=== PATIENT | female | born 1955 | race Hispanic/Latino ===

== ENCOUNTER 2024-08-22 13:52 | Inpatient (IN) | payer OTHER ==
--- OUTSIDE RECORDS SUMMARY | 2024-08-22 21:09 | XMS REPORT | Continuity of Care Document ---
Author Name Unknown Address [address] [facility] [place] [address] [facility] [place] Address [address] [facility] [place] [address] Care Team Providers Care Teaching Music Lessons Name Role Phone JOSE MARIA WADDELL Primary Care Physician UnavailDR JOSE MARIA Mayes Attending Clinician Unavailable [id number] Attending Clinician Unavailable [id number] Attending Clinician Unavailable John Bruno MD Attending Clinician [phone] Sharyn Gamble MD Attending C linician SHARYN GAMBLE Attending Clin ician Unavailable SPRING WAITE Attending Clinician Unavailable Billy Desai MD Attending Clinician + [phone] Esteban Delarosa MD Attending Clinician [phone] Spring Waite MD Attending Clinician [phone] Morena Wallis RN Attending Clinician Unavailable Brian Bowden MD Attending Clinician [phone] UNKNOWN, ATTENDING Attending Clinician UnavailGaston Wray MD Attending Clinician [phone] DR JOSE MARIA WADDELL Admitting Clinician Unavailable John Bruno MD Admitting Clinician JOHN BRUNO Admitting Clinician BILLY Wilson Admitting Clinician Billy Blas MD Admitting Clinician [phone] Brian Bowden MD Admitting Clinician [phone] Payers Payer Name Policy Type Policy Number Effective Date Expirati on Date Source MEDICARE PART A [facility] [id number] MEDICARE PART A Medicare [id number] 2018 00:00:00 Problems Condition Name Condition Details Condition Category Status Onset Date Resolution Date Last Treatment Date Treating Clinician Comments Source Severe malnutriti on (CMS/HCC) Severe malnutriti on (CMS/HCC) Disease Active 4- 00:00: 00 [facility] DAK[place] (acute kidney injury) [place] (acute kidney injury) Disease Active 3-31 00:00: 00 [facility] Chronic systolic heart failure (CMS/HCC) Chronic systolic heart failure (CMS/HCC) Disease Active 3-27 00:00: 00 [facility] Atypical atrial flutter (CMS/HCC) Atypical atrial flutter (CMS/HCC) Disease Active 3-25 00:00: 00 [facility] AVM (arteriove nous malformati on) AVM (arteriove nous malformati on) Disease Active 3-24 00:00: 00 [facility] Melena Melena Disease Active 3-22 00:00: 00 [facility] Nonrheumat ic mitral valve regurgitat ion Nonrheumat ic mitral valve regurgitat ion Disease Active 3-20 00:00: 00 [facility] Cardiac arrest Cardiac arrest Disease Active 3-18 00:00: 00 [facility] Shock (CMS/HCC) Shock (CMS/HCC) Disease Active 3-18 00:00: 00 [facility] Compressio n fracture of T10 vertebra Compressio n fracture of T10 vertebra Disease Active 3-12 00:00: 00 [facility] 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 Disease Active 07-31 00:00: 00 Viktoriya Navarrete Acute non-ST elevation myocardial infarction (NSTEMI) (CMS/HCC) Acute non-ST elevation myocardial infarction (NSTEMI) (CMS/HCC) Disease Active 07-31 00:00: 00 Viktoriya Navarrete Tachy-filemon y syndrome (CMS/HCC) Tachy-filemon y syndrome (CMS/HCC) Disease Active 07-31 00:00: 00 Viktoriya Navarrete Tobacco use disorder Tobacco use disorder Disease Active 07-31 00:00: 00 Viktoriya Navarrete Peripheral vascular disease Peripheral vascular disease Disease Active 07-31 00:00: 00 Viktoriya Navarrete Normocytic anemia Normocytic anemia Disease Active 07-31 00:00: 00 Viktoriya Navarrete Prediabete s Prediabete s Disease Active 07-28 00:00: 00 Viktoriya Navarrete New onset of congestive heart failure (CMS/HCC) New onset of congestive heart failure (CMS/HCC) Disease Active 07-28 00:00: 00 Viktoriya Navarrete Cellulitis Cellulitis Disease Active 07-28 00:00: 00 Viktoriya Navarrete Atrial fibrillati on with RVR (CMS/HCC) Atrial fibrillati on with RVR (CMS/HCC) Disease Active 07-28 00:00: 00 Viktoriya Navarrete Diabetes mellitus Diabetes mellitus Disease Active 07-28 00:00: 00 Viktoriya Navarrete Elevated troponin Elevated troponin Disease Active 07-28 00:00: 00 Viktoriya Navarrete Hypertensi on Hypertensi on Disease Active 07-28 00:00: 00 Viktoriya Navarrete Tobacco use Tobacco use Disease Active 07-28 00:00: 00 Viktoriya Navarrete Coronary artery disease Coronary artery disease Disease Active 07-28 00:00: 00 Viktoriya Navarrete Hyponatrem ia Hyponatrem ia Disease Active 07-28 00:00: 00 [facility] Hyperglyce kasey Hyperglyce kasey Disease Active 3- 00:00: 00 Viktoriya [facility] Pulmonary edema cardiac cause (CMS/HCC) Pulmonary edema cardiac cause (CMS/HCC) Disease Active 07-28 00:00: 00 [facility]ya [facility] Perianal abscess Perianal abscess Disease Active 12-20 00:00: 00 Overview: Added automatic ally from request for surgery [id number] [facility] Acute hypoxic respirator y failure Acute hypoxic respirator y failure Disease Resolve d 07-28 00:00: 00 2024-08-02 00:00:00 2024-08-02 15:25:32 Viktoriya Navarrete Allergies, Adverse Reactions, Alerts Allergy Name Allergy Type Status Severity Reaction(s) Onset Date Inactive Date Treating Clinician Comments Source No Known Environm ental Allergie s MA Active UNKNOWN [facility] No Known Drug Allergie s MA Active UNKNOWN [facility] No Known Food Allergie s MA Active UNKNOWN [facility] NO KNOWN ALLERGIE S Drug Class Active [facility] Social History Social Habit Start Date Stop Date Quantity Comments Source History of tobacco use Cigarette Smoker Bharathi Navarrete ASSERTION Not Viktoriya Navarrete Gender identity Markttuu vick Osvaldo Navarrete Sexual orientation M emoriselena [facility]do Navarrete Sex Assigned At [facility] Exposure to SARS-CoV-2 (event) Not sure [facility] Alcoholic beverage intake 2024-08-12 00:00:00 2024-08-12 00:00:00 .86 /d Bharathi Navarrete Tobacco use and exposure 2024-07-31 00:00:00 2024-07-31 00:00:00 User of smokeless tobacco Bharathi Navarrete Tobacco Comment 2024-07-31 00:00:00 2024-07-31 00:00:00 PATIENT VERBALIZED "WELL NOW THAT I AM IN THE HOSPITAL, I CAN'T REALLY SMOKE Bharathi Navarrete Alcohol Comment 2024-07-31 00:00:00 2024-07-31 00:00:00 DRIKS EVERYOTHER WEEKEND Bharathi Navarrete History of Social function 2024-07-31 00:00:00 2024-07-31 00:00:00 [facility] Smoking Status Start Date Stop Date Source Tobacco smoking consumption unknown [facility] Ex-smoker 2024-07-31 00:00:00 2024-07-31 00:00:00 [facility] Social History 2017-07-27 13:53:55 Jennifer Silverman Medications Ordered Medication Name Filled Medication Name Start Date Stop Date Current Medication? Ordering Clinician Indication Dosage Frequency Signature (SIG) Comments Components Source insulin lispro (HumaLOG, Admelog) injection 3-12 Units [id number] 4-02 13:33: 10 Yes 3U [id number] 3D 3-12 Units, Subcutaneo us, 3 times daily PRN, high blood sugar, with meals, Starting on Tue08/22/24 at 1333, For BG < 70, follow hypoglycem ia protocol and notify ordering provider. If patient can eat or drink, give oral carbohydra te as ordered per hypoglycem ia protocol. If patient NPO, give dextrose 50 % IV as ordered per hypoglycem ia protocol. If NPO and no IV access, give glucagon IM as ordered per hypoglycem ia protocol. Check BG every 15 minutes and repeat treatment if continued BG < 80., Correction Insulin Dosing: (DO NOT CHANGE DEFAULT SELECTION/ VALUES): Medium, BG < 70 instructio ns: Follow Hypoglycem ia Orders, BG 70-149 instructio ns: No Dose Needed, BG 150-199: 3, BG 200-249: 6, BG 250-299: 9, BG >/= 300: 12, BG > 300 instructio ns: Contact Provider Viktoriya Riley [facility] glucagon injection 1 mg glucagon injection 1 mg 08-22 13:32: 24 Yes 1mg 1 mg, Intramuscu lar, As needed, For BG < 70 mg/dL if no IV access and patient is either Unconsciou s, unable to swallow or npo, Starting on Tue08/22/24 at 1332, For BG < 70 mg/dL if no IV access and patient is either Unconsciou s, unable to swallow or npo and notify MD. Viktoriya Riley [facility] dextrose 50 % solution 25 g dextrose 50 % solution 25 g 08-22 13:32: 24 Yes 25g 25 g, Intravenou s, As needed, other, if Blood Glucose </= 50 mg/dL, Starting on Tue08/22/24 at 1332, If BG </=50 mg/dL, give 50 mL of D50W IV push STAT and notify MD. Viktoriya Navarrete dextrose 50 % solution 12.5 g dextrose 50 % solution 12.5 g 08-22 13:32: 24 Yes 12.5g 12.5 g, Intravenou s, As needed, low blood sugar, if Blood Glucose 51- 69 mg/dL, Starting on Tue08/22/24 at 1332, For BG 51-69 mg/dL and patient UNCONSCIOU S OR UNABLE TO SWALLOW OR NPO: Give 25 mL of D50W IV push and notify MD. Viktoriya Navarrete apixaban (Eliquis) 5 MG tablet apixaban (Eliquis) 5 MG tablet 08-22 00:00: 00 09-21 23:59 :00 No 5mg Q.5D Take 1 tablet by mouth in the morning and 1 tablet before bedtime. Viktoriya Navarrete atorvastati n (Lipitor) 40 MG tablet atorvastati n (Lipitor) 40 MG tablet 08-22 00:00: 00 09-21 23:59 :00 No 40mg QD Take 1 tablet by mouth 1 time each day. Viktoriya Navarrete insulin lispro (HumaLOG, Admelog) 100 unit/ml injection insulin lispro (HumaLOG, Admelog) 100 unit/ml injection 08-22 00:00: 00 09-21 23:59 :00 No 3U [id number] 3D Inject 3-12 Units under the skin 3 times a day as needed for high blood sugar (with meals). See After Visit Summary for instructio ns on how to take your insulin. Viktoriya Navarrete sennosides (Senokot) 8.6 MG tablet sennosides (Senokot) 8.6 MG tablet 08-22 00:00: 00 09-21 23:59 :00 No 8.6mg Q.5D Take 1 tablet by mouth in the morning and 1 tablet in the evening. Viktoriya Navarrete ticagrelor (Brilinta) 90 MG tablet ticagrelor (Brilinta) 90 MG tablet 08-22 00:00: 00 09-21 23:59 :00 No 90mg Q.5D Take 1 tablet by mouth in the morning and 1 tablet before bedtime. Viktoriya Navarrete bisacodyl (Dulcolax) 10 MG suppository bisacodyl (Dulcolax) 10 MG suppository 08-22 00:00: 00 09-01 23:59 :00 No 10mg Q24H Insert 1 suppositor y into the rectum daily as needed for constipati on for up to 10 days. Viktoriya Navarrete polyethylen e glycol, PEG, 3350 (Miralax) 17 g packet polyethylen e glycol, PEG, 3350 (Miralax) 17 g packet 08-22 00:00: 00 08-25 23:59 :00 No 17g Q.5D Take 17 g by mouth in the morning and 17 g in the evening. Do all this for 3 days. Viktoriya Navarrete traMADol (Ultram) tablet 50 mg traMADol (Ultram) tablet 50 mg 08-21 15:39: 25 Yes 50mg 50 mg, Oral, Every 12 hours PRN, severe pain (7-10), moderate pain (4-6), Starting on Tue08/21/24 at 1539, Max of 300 mg daily for patients > 75 years of age. Viktoriya Navarrete polyethylen e glycol (PEG) 3350 (Miralax) packet 17 g polyethylen e glycol (PEG) 3350 (Miralax) packet 17 g 08-20 17:00: 00 Yes 17g Q.5D 17 g, Oral, 2 times daily, First dose (after last modificati on) on Tue08/20/24 at 1700, Dissolve 17 g in 120 to 240 mL (4 to 8 ounces) of beverage. Viktoriya Navarrete bisacodyl (Dulcolax) suppository 10 mg bisacodyl (Dulcolax) suppository 10 mg 08-20 15:51: 15 Yes 10mg Q24H 10 mg, Rectal, Daily PRN, constipati on, Starting on Tue08/20/24 at 1551 Viktoriya Navarrete ondansetron (Zofran) injection 2 mg ondansetron (Zofran) injection 2 mg 08-20 14:45: 00 08-20 14:52 :00 No 2mg 2 mg, Intravenou s, Once, On Tue08/20/24 at 1445, For 1 dose Viktoriya Navarrete lactated Ringer's bolus 250 mL lactated Ringer's bolus 250 mL 08-20 10:45: 00 08-20 12:48 :00 No 250mL 250 mL, Intravenou s, at 125 mL/hr, Administer over 2 Hours, Once, On Tue08/20/24 at 1045, For 1 dose Viktoriya [facility] perflutren lipid microsphere s (Definity) injection 3.4556 mg perflutren lipid microsphere s (Definity) injection 3.4556 mg 08-19 14:07: 26 08-19 14:07 :00 No 10uL/kg 3.4556 mg (10 mcL/kg ?53 kg), Intravenou s, Once in imaging, Starting on Tue08/19/24 at 1407, For 1 dose, Contrast - for use by imaging provider only. Prior to administra tion or further dilution, Definity product must be activated. First, bring vial to room temperatur e. Then, shake vial for 45 seconds using [employer] d Vialmix apparatus. Do not use if the 45 second activation cycle has not been completed. Following activation , the product will appear as a milky white suspension and may be used immediatel y. If not used within 5 minutes of activation , re-suspend by inverting and shaking the vial for 10 seconds. Unused product must be discarded within 12 hours after activation . To administer undiluted, draw up activated product into a 3 or 5 mL syringe. If ordered as a diluted syringe, draw up 8.7 mL of preservati ve free saline into a 10 mL syringe, then slowly withdraw 1.3 mL of activated Definity into same syringe. Gently shake by hand to evenly distribute . If ordered as a diluted infusion, draw up 1.3 mL of activated Definity, then add to a 50 mL preservati ve free saline bag. Gently squeeze IV bag to evenly distribute prior to administra tion. Viktoriya Riley [facility] amiodarone (Pacerone) tablet 200 mg amiodarone (Pacerone) tablet 200 mg 08-19 09:00: 00 08-22 14:52 :17 No 200mg QD 200 mg, Oral, Daily, First dose on Tue08/19/24 at 0900 Daisyjg ignacio [facility] potassium chloride CR (Klor-Con M20) ER tablet 20 mEq potassium chloride CR (Klor-Con M20) ER tablet 20 mEq 08-17 11:54: 51 08-21 15:38 :51 No 20meq 20 mEq, Oral, As needed, Abnormal Lab Result, For NON-ICU Patients Only, Starting on Tue08/17/24 at 1154, Evaluate Potassium and Phosphorou s level prior to replacemen t. Potassium replacemen t; phosphorou s > 2.4 mg/dL or phosphorou s level not available: For K = 3.5 - 3.9 mEq/L: Replace with KCL 20 mEq. Recheck Potassium with next scheduled lab. For K = 3.1 - 3.4 mEq/L: Replace with KCL 40 mEq.? Recheck Potassium 4 hours after replacemen t. Potassium and Phosphorou s Replacemen t: For K = 3.5 - 4.5 mEq/L AND Phosphorou s 2 - 2.4 mg/dL:? Replace with 2 packets of Potassium phosphate/ sodium phosphate oral powder x 1 dose. For K = 3.5 - 4.5 mEq/L AND Phosphorou s 1.6 - 1.9 mg/dL:? Replace with 2 packets of Potassium phosphate/ sodium phosphate oral powder Q4H x 2 doses. For K = 3.1 - 3.4 mEq/L AND Phosphorou s 2 - 2.4 mg/dL: Replace with KCL 20 mEq PO/NJ AND Potassium Phosphate 15 mMol IVPB over 4 hours. For K = 3.1 - 3.4 mEq/L AND Phosphorou s 1.6 - 1.9 mg/dL: Replace with Potassium Phosphate 30 mMol IVPB over 4 hours. Recheck Potassium and Phosphorou s levels 4 hours after replacemen t complete.N otify MD for K < 3.1 mEq/L or Phosphorou s < 1.6 mg/dL prior to replacemen t. *Use PO or NJ administra tion unless patient is first 12 hours post-op, active GI bleed, acute arrhythmia s, ischemic bowel or NPO. Do Not Crush the ER tablets. DO NOT replace if patient is on dialysis, temperatur e < 35 Celsius, or serum creatinine > 2.0 mg/dL or GFR < 45 mL/min. DO NOT CRUSH.? For patients able to take medication s orally or via feeding tube >/= 14 [place], may dissolve each 20 mEq tablet in 4 oz of water.? Allow about 2 minutes for the tablets to disintegra te.? Stir before giving to prepare slurry and administer .? Please exclude patient's with feeding tube less than 14 [place] (Dobhoff, J-tube, etc) and pediatric and patients. Do not crush or chew. Viktoriya Riley [facility] losartan (Cozaar) tablet 12.5 mg losartan (Cozaar) tablet 12.5 mg 08-17 10:15: 00 Yes 12.5mg QD 12.5 mg, Oral, Daily, First dose on Tue08/17/24 at 1015 Viktoriya Riley [facility] furosemide (Lasix) tablet 40 mg furosemide (Lasix) tablet 40 mg 08-16 17:00: 00 Yes 40mg 40 mg, Oral, 2 times daily (01/05), First dose on Tue08/16/24 at 1700, On hold since Tue08/20/2024 at 0915 until manually unheld Viktoriya Riley [facility] dapaglifloz in (Farxiga) tablet 10 mg dapaglifloz in (Farxiga) tablet 10 mg 08-16 11:15: 00 Yes [id number] 10mg QD 10 mg, Oral, Daily, First dose on Tue08/16/24 at 1115, Indication s: Heart Failure, On hold since Tue08/20/2024 at 1034 until manually unheld Viktoriya [facility] furosemide (Lasix) injection 40 mg furosemide (Lasix) injection 40 mg 08-16 11:15: 00 08-16 18:39 :00 No 40mg 40 mg, Intravenou s, Once, On Tue08/16/24 at 1115, For 1 dose, Give with transfusio n. Viktoriya Navarrete apixaban (Eliquis) tablet 5 mg apixaban (Eliquis) tablet 5 mg 08-16 11:00: 00 Yes 5mg Q.5D 5 mg, Oral, Every 12 hours scheduled, First dose on Tue08/16/24 at 1100 Viktoriya Navarrete pantoprazol e (ProtoNix) EC tablet 40 mg pantoprazol e (ProtoNix) EC tablet 40 mg 08-16 06:00: 00 Yes 40mg 40 mg, Oral, Daily before breakfast, First dose on Tue08/16/24 at 0600, Do not crush, chew, or split. Viktoriya Navarrete norepinephr ine (Levophed) 800 mcg in sodium chloride 0.9 % 50 mL (16 mcg/mL) infusion norepinephr ine (Levophed) 800 mcg in sodium chloride 0.9 % 50 mL (16 mcg/mL) infusion 08-15 08:25: 00 08-15 14:27 :08 No Intravenou s, Continuous PRN, Starting on Tue08/15/24 at 0825, Anesthesia Intraproce dure Viktoriya Navarrete heparin 50 units/mL in sodium chloride 0.45 % heparin 50 units/mL in sodium chloride 0.45 % 08-14 19:30: 00 08-16 10:59 :39 No 200U/h 200 Units/hr (4 mL/hr), Intravenou s, Continuous , Starting on Tue08/14/24 at 1930, Non weight-bas ed fixed dose heparin only. Not Intended to achieve therapeuti c PTT > 60. No Heparin Loading Dose. , On hold since Tue08/16/2024 at 0648 until manually unheld Viktoriya Navarrete sodium chloride 0.9 % bolus 100 mL sodium chloride 0.9 % bolus 100 mL 08-14 09:30: 00 08-14 10:32 :00 No 100mL 100 mL, Intravenou s, at 100 mL/hr, Administer over 1 Hours, Once, On Tue08/14/24 at 0930, For 1 dose Viktoriya Navarrete amiodarone (Nexterone) 900 mg in dextrose 5 % 500 mL (1.8 mg/mL) infusion amiodarone (Nexterone) 900 mg in dextrose 5 % 500 mL (1.8 mg/mL) infusion 08-14 09:15: 00 08-14 22:30 :07 No 1mg/min 1 mg/min (33.3333 mL/hr, rounded to 33.3 mL/hr), Intravenou s, Continuous , Starting on Tue08/14/24 at 0915, Use in-line filter with infusion Viktoriya Navarrete traZODone (Desyrel) tablet 50 mg traZODone (Desyrel) tablet 50 mg 08-13 21:15: 00 08-13 21:24 :00 No 50mg 50 mg, Oral, Once, On Tue08/13/24 at 2115, For 1 dose Viktoriya Navarrete octreotide (SandoSTATI N) injection 100 mcg octreotide (SandoSTATI N) injection 100 mcg 08-13 13:00: 00 08-16 11:06 :20 No 100ug [id number] 3D 100 mcg, Subcutaneo us, 3 times daily, First dose (after last modificati on) on Tue08/13/24 at 1300 Viktoriya Navarrete bumetanide (Bumex) 10 mg in sodium chloride 0.9 % 100 mL (0.1 mg/mL) infusion bumetanide (Bumex) 10 mg in sodium chloride 0.9 % 100 mL (0.1 mg/mL) infusion 08-13 09:30: 00 08-16 10:59 :39 No .25mg/h 0.25 mg/hr (2.5 mL/hr), Intravenou s, Continuous , Starting on Tue08/13/24 at 0930, On hold since Tue08/14/2024 at 0921 until manually unheld Viktoriya Navarrete furosemide (Lasix) injection 40 mg furosemide (Lasix) injection 40 mg 08-13 08:15: 08-13 08:37 :00 No 40mg 40 mg, Intravenou s, Once, On Tue08/13/24 at 0815, For 1 dose [facility] octreotide (SandoSTATI N) injection 50 mcg octreotide (SandoSTATI N) injection 50 mcg 08-12 17:30: 00 08-13 09:21 :41 No 50ug [id number] 3D 50 mcg, Subcutaneo us, 3 times daily, First dose on Tue08/12/24 at 1730 Memoria ignacio [facility] albumin human 25 % IV soln 25 g albumin human 25 % IV soln 25 g 08-12 13:15: 08-12 13:50 :00 No 25g 25 g, Intravenou s, at 200 mL/hr, Administer over 30 Minutes, Once, On Tue08/12/24 at 1315, For 1 dose [facility] ketamine injection 10 mg/mL (50 mg/5 mL) syringe 50 mg ketamine injection 10 mg/mL (50 mg/5 mL) syringe 50 mg 08-12 12:15: 08-12 12:41 :00 No 50mg 50 mg, Intravenou s, Administer over 2 Minutes, Once, On Tue08/12/24 at 1215, For 1 dose, Give IV doses slowly over 1-3 minutes (max 0.5 mg/kg/min) . Daisyoria ignacio [facility] fentaNYL (Sublimaze) injection 100 mcg fentaNYL (Sublimaze) injection 100 mcg 08-12 12:15: 08-12 12:40 :00 No 100ug 100 mcg, Intravenou s, Once, On Tue08/12/24 at 1215, For 1 dose Memoria ignacio [facility] midazolam (Versed) injection 7 mg midazolam (Versed) injection 7 mg 08-12 12:15: 08-12 12:40 :00 No 7mg 7 mg, Intravenou s, Once, On Tue08/12/24 at 1215, For 1 dose Memoria ignacio [facility] ketamine injection 10 mg/mL (50 mg/5 mL) 10 mg/mL syringe - Pyxis Override Pull ketamine injection 10 mg/mL (50 mg/5 mL) 10 mg/mL syringe - Pyxis Override Pull 08-12 10:31: 57 08-12 12:41 :00 No Starting on 08/12/24 at 1031, For 1 dose, Created by cabinet override Give IV doses slowly over 1-3 minutes (max 0.5 mg/kg/min) . Viktoriya Riley [facility] furosemide (Lasix) injection 20 mg furosemide (Lasix) injection 20 mg 08-12 09:30: 00 08-12 10:05 :00 No 20mg 20 mg, Intravenou s, Administer over 1 Minutes, Once, On 08/12/24 at 0930, For 1 dose Viktoriya pierre [facility] sodium bicarbonate 25 mEq in dextrose 5 % 1,000 mL infusion sodium bicarbonate 25 mEq in dextrose 5 % 1,000 mL infusion 08-11 11:30: 00 08-15 14:41 :16 No .1mL/h 0.1-40 mL/hr, Other, Continuous , Starting on 08/11/24 at 1130, Impella Device Non-hepari n Purge Solution. For use as alternativ e purge solution in patients with Impella device where heparin may be contraindi cated (heparin-i nduced thrombocyt openia, heparin allergy, coagulopat hy, bleeding). If purge flow rate is > 25 mL/hr, increase dextrose concentrat ion in purge solution. System will continue to adjust purge flow rate. If purge flow rate 5 - 25 mL/hr, therapeuti c range - no change. If purge flow rate < 5 mL/hr, contact physician for further instructio ns. Viktoriya pierre [facility] pantoprazol e (ProtoNix) injection 40 mg pantoprazol e (ProtoNix) injection 40 mg 08-11 09:45: 00 08-15 14:03 :27 No 40mg Q.5D 40 mg, Intravenou s, Every 12 hours scheduled, First dose on 08/11/24 at 0945, Until Discontinu ed Viktoriya Navarrete folic acid (Folvite) tablet 1 mg folic acid (Folvite) tablet 1 mg 08-11 09:00: 00 08-25 08:59 :00 No 1mg QD 1 mg, Oral, Daily, First dose on Tue08/11/24 at 0900, For 14 days Viktoriya Navarrete ferric gluconate (Ferrlecit) 250 mg in sodium chloride 0.9 % 100 mL IVPB ferric gluconate (Ferrlecit) 250 mg in sodium chloride 0.9 % 100 mL IVPB 08-11 09:00: 00 08-14 10:56 :00 No 250mg QD 250 mg, Intravenou s, at 66.7 mL/hr, Administer over 90 Minutes, Daily, First dose on Tue08/11/24 at 0900, For 4 doses, Not to exceed 2.1 mg/min (duration = 60 min) Viktoriya Navarrete fentaNYL (Sublimaze) injection 50 mcg fentaNYL (Sublimaze) injection 50 mcg 08-10 11:45: 00 08-10 11:00 :00 No 50ug 50 mcg, Intravenou s, Once, On Tue08/10/24 at 1145, For 1 dose Viktoriya Navarrete midazolam (Versed) injection 4 mg midazolam (Versed) injection 4 mg 08-10 11:45: 00 08-10 11:00 :00 No 4mg 4 mg, Intravenou s, Once, On Tue08/10/24 at 1145, For 1 dose Viktoriya Navarrete fentaNYL (PF) (Sublimaze) 100 MCG/2ML injection - Pyxis Override Pull fentaNYL (PF) (Sublimaze) 100 MCG/2ML injection - Pyxis Override Pull 08-10 09:56: 40 08-10 11:00 :00 No Starting on Tue08/10/24 at 0956, For 1 dose, Created by cabinet override Viktoriya Navarrete Boost Glucose Control liquid 237 mL Boost Glucose Control liquid 237 mL 08-09 15:15: 00 Yes 1{conta iner} 237 mL (1 Container) , Oral, 2 times daily with meals, First dose on Tue08/09/24 at 1515 Viktoriya Riley Epic phenol (Chlorasept ic) 1.4 % mouth/throa t spray 1 spray phenol (Chlorasept ic) 1.4 % mouth/throa t spray 1 spray 08-09 07:38: 19 Yes 1{spray } 1 spray, Mouth/Thro at, Every 2 hour PRN, sore throat, Starting on Tue08/09/24 at 0738, Instruct patient to spit out after 15 seconds. Viktoriya Navarrete insulin lispro (HumaLOG, Admelog) injection 3-12 Units [id number] 2086-0 3-19 21:42: 30 08-22 13:33 :51 No 3U Q4H 3-12 Units, Subcutaneo us, Every 4 hours PRN, high blood sugar, Starting on Tue08/08/24 at 2142, 1. IF 2 consecutiv e BG are >160 mg/dL, notify provider. 2. IF 2 consecutiv e BG are < 110 mg/dL, notify provider. 3. IF 2 consecutiv e BG are >200 mg/dL or 1 BG is > or = to 300 mg/dL, notify provider then INITIATE Insulin drip 4. When initiating the Insulin Infusion Orders for ICU MPP, please discontinu e the ICU insulin Sub Q correction dose MPP and any orders for basal SQ insulin. Select the order communicat ion type as secondary. 5. When transferri ng out of ICU please inform MD to discontinu e critical care Sub-Q orders and initiate floor Sub-Q orders, Correction Insulin Dosing: (DO NOT CHANGE DEFAULT SELECTION/ VALUES): Medium, BG < 70 instructio ns: Follow Hypoglycem ia Orders, BG 70-149 instructio ns: No Dose Needed, BG 150-199: 3, BG 200-249: 6, BG 250-299: 9, BG >/= 300: 12, BG > 300 instructio ns: Contact Provider Viktoriya Navarrete thiamine (Vitamin B-1) tablet 100 mg thiamine (Vitamin B-1) tablet 100 mg 08-08 11:30: 00 08-14 09:27 :00 No 100mg QD 100 mg, Nasogastri c, Daily, First dose on Tue08/08/24 at 1130, For 7 days Viktoriya Navarrete Enteral Free water Flush 30 mL Enteral Free water Flush 30 mL 08-08 11:30: 00 08-09 12:29 :55 No 30mL Q4H 30 mL, Nasogastri c, Every 4 hours, First dose on Tue08/08/24 at 1130 Viktoriya Navarrete peptamen AF liquid peptamen AF liquid 08-08 11:30: 00 08-09 12:29 :54 No Nasogastri c, at 65 mL/hr, Continuous , Starting on Tue08/08/24 at 1130, Administer enteral tube feeding as follows: Standard Progressio n: Initiate at 20 mL/hr and increase by 20 mL/hr evry 4 hours. Refer to the Rate field for Goal Rate Viktoriya Navarrete aspirin chewable tablet 81 mg aspirin chewable tablet 81 mg 08-08 09:00: 00 08-22 10:49 :19 No 81mg QD 81 mg, Oral, Daily, First dose on Tue08/08/24 at 0900, For 20 doses Viktoriya Navarrete amiodarone (Cordarone) 150 mg in dextrose 5 % 100 mL IVPB (RN PREP) amiodarone (Cordarone) 150 mg in dextrose 5 % 100 mL IVPB (RN PREP) 08-08 08:15: 00 08-08 08:55 :00 No 150mg 150 mg, Intravenou s, at 600 mL/hr, Administer over 10 Minutes, Once, On Tue08/08/24 at 0815, For 1 dose, Will mix from pyxis Viktoriya Navarrete heparin 50 units/mL in sodium chloride 0.45 % heparin 50 units/mL in sodium chloride 0.45 % 08-08 06:00: 00 08-15 14:41 :16 No 500U/h 500 Units/hr (10 mL/hr), Intravenou s, Continuous , Starting on Tue08/08/24 at 0600, Non weight-bas ed fixed dose heparin only. Not Intended to achieve therapeuti c PTT > 60. No Heparin Loading Dose. , On hold since Tue08/12/2024 at 0055 until manually unheld Viktoriya Navarrete vancomycin (Vancocin) 750 mg in sodium chloride 0.9 % 100 mL IVPB-MB+ vancomycin (Vancocin) 750 mg in sodium chloride 0.9 % 100 mL IVPB-MB+ 08-07 23:00: 00 08-15 11:22 :13 No 750mg Q12H 750 mg, Intravenou s, at 100 mL/hr, Administer over 60 Minutes, Every 12 hours, First dose on Tue08/07/24 at 2300, For 30 days, Mini-Bag Plus bag. Break seal and mix before use, as follows: For liquid drug vials, skip to step 2. 1. Hold bag with vial down. Squeeze solution into vial until half-full. Shake to suspend drug in solution. 2. Hold bag with vial upside down. Squeeze bag to force air into vial, then release to drain suspended drug from vial into bag. 3. Repeat above until vial is empty of drug and solution is thoroughly mixed. Ensure drug is completely dissolved. Do not remove drug vial. 4. Remove port protector, attach admin set per its instructio ns, then hang container from IV pole and prime set per directions . Do not use in series connection s. 5. Ensure the vial is empty of drug and in solution, then administer medication as ordered. Use within specified BUD., Suspected Indication (Select all that apply): Suspected Sepsis Viktoriya Navarrete sulfur hexafluorid e lipid-type A microsphere s (Lumason) 60.7-25 MG Injectable suspension 2 mL sulfur hexafluorid e lipid-type A microsphere s (Lumason) 60.7-25 MG Injectable suspension 2 mL 08-07 19:37: 59 08-07 19:38 :00 No 2mL 2 mL, Intravenou s, Once in imaging, Starting on Tue08/07/24 at 1937, For 1 dose, Reconstitu te with 5 mL of PF NS only using provided Mini-Gavin ; shake vigorously for 20 sec until a homogenous white milky suspension forms. Use immediatel y. May repeat once during procedure. Viktoriya Navarrete midazolam (Versed) 2 MG/2ML injection - Pyxis Override Pull midazolam (Versed) 2 MG/2ML injection - Pyxis Override Pull 08-07 15:00: 31 08-07 15:05 :00 No Starting on Tue08/07/24 at 1500, For 1 dose, Created by cabinet override Viktoriya Navarrete midazolam (Versed) injection 1 mg midazolam (Versed) injection 1 mg 08-07 15:00: 00 08-07 15:05 :00 No 1mg 1 mg, Intravenou s, Once, On Tue08/07/24 at 1500, For 1 dose Viktoriya Navarrete methocarbam ol (Robaxin) tablet 500 mg methocarbam ol (Robaxin) tablet 500 mg 08-07 14:00: 00 08-12 05:22 :00 No 500mg [id number] 3D 500 mg, Oral, Every 8 hours scheduled, First dose on Tue08/07/24 at 1400, For 5 days Viktoriya Navarrete heparin 50 units/mL in sodium chloride 0.45 % heparin 50 units/mL in sodium chloride 0.45 % 08-07 11:30: 00 08-08 21:35 :59 No 200U/h 200 Units/hr (4 mL/hr), Intravenou s, Continuous , Starting on Tue08/07/24 at 1130, Non weight-bas ed fixed dose heparin only. Not Intended to achieve therapeuti c PTT > 60. No Heparin Loading Dose. Viktoriya Navarrete vancomycin in NS (Vancocin) IVPB 1.5 g vancomycin in NS (Vancocin) IVPB 1.5 g 08-07 11:15: 00 08-07 12:50 :00 No 1.5g 1.5 g, Intravenou s, at 166.7 mL/hr, Administer over 90 Minutes, Once, On Tue08/07/24 at 1115, For 1 dose, premix bag, Suspected Indication (Select all that apply): Suspected Sepsis Viktoriya Navarrete gabapentin (Neurontin) capsule 100 mg gabapentin (Neurontin) capsule 100 mg 08-07 11:00: 00 08-12 05:22 :00 No 100mg Q8H 100 mg, Oral, Every 8 hours, First dose on Tue08/07/24 at 1100, For 5 days Viktoriya Navarrete acetaminoph en (Tylenol) tablet 650 mg acetaminoph en (Tylenol) tablet 650 mg 08-07 11:00: 00 08-12 10:59 :00 No 650mg Q6H 650 mg, Oral, Every 6 hours, First dose on Tue08/07/24 at 1100, For 5 days, Max acetaminop hen = 4000mg/day (4gm/day) Viktoriya Riley Epic albumin human 25 % IV soln 25 g albumin human 25 % IV soln 25 g 08-07 11:00: 00 08-07 12:13 :00 No 25g 25 g, Intravenou s, at 100 mL/hr, Administer over 60 Minutes, Once, On Tue08/07/24 at 1100, For 1 dose, Indication for albumin: Other see comments Viktoriya Navarrete ondansetron (Zofran) injection 4 mg ondansetron (Zofran) injection 4 mg 08-07 11:00: 00 08-07 11:41 :00 No 4mg 4 mg, Intravenou s, Once, On Tue08/07/24 at 1100, For 1 dose Viktoriya Navarrete albumin human 25 % IV soln - Pyxis Override Pull albumin human 25 % IV soln - Pyxis Override Pull 08-07 10:57: 56 08-07 12:13 :00 No Starting on Tue08/07/24 at 1057, For 1 dose, Created by cabinet override Vikotriya Navarrete traMADol (Ultram) tablet 50 mg traMADol (Ultram) tablet 50 mg 08-07 10:50: 57 08-21 15:40 :49 No 50mg Q8H 50 mg, Oral, Every 8 hours PRN, severe pain (7-10), Starting on Tue08/07/24 at 1050, Max of 300 mg daily for patients > 75 years of age. Viktoriya Navarrete cefepime (Maxipime) 1 g in sodium chloride 0.9 % 100 mL IVPB-MB+ cefepime (Maxipime) 1 g in sodium chloride 0.9 % 100 mL IVPB-MB+ 08-07 10:45: 00 08-10 15:17 :12 No 1g Q8H 1 g, Intravenou s, at 25 mL/hr, Administer over 4 Hours, Every 8 hours, First dose on Tue08/07/24 at 1045, For 7 days, Mini-Bag Plus bag. Break seal and mix before use, as follows: For liquid drug vials, skip to step 2. 1. Hold bag with vial down. Squeeze solution into vial until half-full. Shake to suspend drug in solution. 2. Hold bag with vial upside down. Squeeze bag to force air into vial, then release to drain suspended drug from vial into bag. 3. Repeat above until vial is empty of drug and solution is thoroughly mixed. Ensure drug is completely dissolved. Do not remove drug vial. 4. Remove port protector, attach admin set per its instructio ns, then hang container from IV pole and prime set per directions . Do not use in series connection s. 5. Ensure the vial is empty of drug and in solution, then administer medication as ordered. Use within specified BUD., Suspected Indication (Select all that apply): Suspected Sepsis Viktoriya Navarrete ticagrelor (Brilinta) tablet 90 mg ticagrelor (Brilinta) tablet 90 mg 08-07 09:00: 00 Yes 90mg Q.5D 90 mg, Oral, Every 12 hours scheduled, First dose on Tue08/07/24 at 0900, Recovery & On Unit, MAINVERÓNICAANC E DOSE. (Maintenan ce dose of Aspirin of 81 mg/day; DO NOT exceed Aspirin dose of 100 mg/day) Viktoriya Riley Epic potassium phosphate 30 mmol/260 mL NS infusion (premix) 30 mmol potassium phosphate 30 mmol/260 mL NS infusion (premix) 30 mmol 08-07 06:00: 00 08-07 10:42 :00 No 30mmol 30 mmol, Intravenou s, Administer over 4 Hours, Once, On Tue08/07/24 at 0600, For 1 dose Viktoriya Riley Epic sodium bicarbonate 8.4 % injection 50 mEq sodium bicarbonate 8.4 % injection 50 mEq 08-07 04:30: 00 08-07 04:42 :00 No 50meq 50 mEq, Intravenou s, Once, On Tue08/07/24 at 0430, For 1 dose Viktoriya Riley Epic sodium chloride 0.9 % infusion 100 mL sodium chloride 0.9 % infusion 100 mL 08-07 02:46: 57 Yes 100mL 100 mL, Intravenou s, As needed, to prime line and flush remaining blood products, Starting on Tue08/07/24 at 0246 Viktoriya Riley Epic artificial tears ophthalmic ointment 1 Application artificial tears ophthalmic ointment 1 Application 08-07 00:00: 00 08-08 12:12 :48 No 1{appli cation} Q.25D 1 Applicatio n, Both Eyes, Every 6 hours scheduled, First dose on Tue08/07/24 at 0000, Discontinu e once extubated Viktoriya Riley Epic fentaNYL Citrate (Sublimaze) 1000 MCG/20ML infusion fentaNYL Citrate (Sublimaze) 1000 MCG/20ML infusion 08-06 23:15: 00 08-08 12:12 :48 No 50ug/h 50-200 mcg/hr (1-4 mL/hr), Intravenou s, Continuous , Starting on Tue08/06/24 at 2315, Do not exceed max dose in ordered range; contact prescriber if goal not met or maintained at max dose., Infusion Type: Titrate, Initial Dose (mcg/hr): 50, Titrate by (mcg/hr): 25, Every (minutes): 15, Goal: Refer to Target Arousal RASS Score on Storyboard , Max Dose (mcg/hr): 200 Viktoriya Riley Epic chlorhexidi ne (Peridex) 0.12 % solution 15 mL chlorhexidi ne (Peridex) 0.12 % solution 15 mL 08-06 23:00: 00 08-08 12:12 :48 No 15mL Q.25D 15 mL, Mouth/Thro at, 4 times daily, First dose on Tue08/06/24 at 2300, swish and expectorat e Viktoriya Riley Epic chlorhexidi ne (Peridex) 0.12 % solution 15 mL chlorhexidi ne (Peridex) 0.12 % solution 15 mL 08-06 22:52: 01 Yes 15mL 15 mL, Mouth/Thro at, As needed, wound care, For VAP prevention and oral hygiene., Starting on Tue08/06/24 at 2252, swish and expectorat e Memoria l [place] Epic EPINEPHrine 4-0.9 MG/250ML-% infusion (premix) EPINEPHrine 4-0.9 MG/250ML-% infusion (premix) 08-06 22:30: 00 08-12 09:14 :16 No 3ug/min 3 mcg/min (11.25 mL/hr), Intravenou s, Continuous , Starting on Tue08/06/24 at 2230, DO NOT TITRATE Please notify pharmacy two hours in advance of next dose needed, On hold since Tue08/08/2024 at 2135 until manually unheld Memoria l Osval[facility] Epic insulin regular (Myxredlin) 100-0.9 UT/100ML-% infusion (premix) insulin regular (Myxredlin) 100-0.9 UT/100ML-% infusion (premix) 08-06 22:30: 00 08-08 21:36 :13 No 0U/h 0-35 Units/hr (0-35 mL/hr), Intravenou s, Continuous , Starting on Tue08/06/24 at 2230, LOW Blood Glucose Target= 110 mg/dL and HIGH Blood Glucose Target= 180mg/dL Do Not Start Insulin Drip Unless Potassium is More Than 3 mEq/L. Initial Insulin Drip Rate (units/freya r)=(Blood Glucose-60 )X0.03 "multiplie r". Insulin Rate Adjustment s: 1) If hourly BG is greater than HIGH target, increase the "multiplie r"by 0.01. (Do Not increase if treated for hypoglycem ia within the last 4 hours.); Notify MD if insulin infusion rate exceeding 20 units/hr 2) If hourly BG is less than LOW target, decrease the "multiplie r" by 0.01 3) If hourly BG is WITHIN target range, do NOT change the "multiplie r". You must still recalculat e insulin drip rate with each BG result and unchanged multiplier . After hourly BG remains in target range for 4 consecutiv e hours, check BG Q2H or per unit monitoring procedure. If multiplier is changed, resume checking BG every 1 hour. If BG < 70 mg/dL, HOLD insulin drip, contact MD AND refer to hypoglycem ia orders Once no longer hypoglycem ic, repeat BG Q1H. Restart insulin infusion once BG >140 mg/dL and decrease multiplier by rate of 0.01 Do NOT increase the multiplier after treating hypoglycem ia until BG is greater than HIGH target (180mg/dL) and no hypoglycem ia within last 4 hours. Send STAT serum glucose to lab for verificati on for all BG less than or equal 50 mg/dL or above 400 mg/dL For ICU Use Only BUD: 30 days at room temperatur e Daisyoria ignacio AntoineOsvaldo Epic sodium bicarbonate 8.4 % injection 50 mEq sodium bicarbonate 8.4 % injection 50 mEq 08-06 22:15: 00 08-06 22:56 :00 No 50meq 50 mEq, Intravenou s, Once, On Tue08/06/24 at 2215, For 1 dose Memoria ignacio Riley Epic sodium chloride (NS) 0.9 % flush 10 mL sodium chloride (NS) 0.9 % flush 10 mL 08-06 18:38: 51 Yes 10mL 10 mL, Intravenou s, As needed, line care, Line Flush, Starting on Tue08/06/24 at 1838, Recovery & On Unit Memjg Riley Epic amiodarone (Pacerone) tablet 200 mg amiodarone (Pacerone) tablet 200 mg 08-02 17:00: 00 08-13 09:19 :31 No 200mg Q.5D 200 mg, Oral, 2 times daily, First dose on Tue08/02/24 at 1700, On hold since Tue08/06/2024 at 0032 until manually unheld Memjg Riley Epic magnesium sulfate IVPB 2 g magnesium sulfate IVPB 2 g 08-01 00:35: 43 08-17 09:19 :02 No 2g 2 g, Intravenou s, Administer over 4 Hours, As needed, Abnormal Lab Result, FOR ICU USE ONLY, Starting on Tue08/01/24 at 0035, For magnesium 1.6 to 1.8 mg/dL: Replace with Mg Sulfate 2 grams IVPB over 4 hours x 1 dose. For magnesium 1.9 to 2.3 mg/dL(in CV surgery patients only): Replace with Mg Sulfate 2 grams IVPB over 4 hours X 1 dose> For magnesium </= 1.5 mg/dL: Replace with Mg Sulfate 2 grams IVPB over 4 hours X 2 doses. Notify MD if magnesium </= 1.1 mg/dL Recheck Magnesium level 2 hours after Magnesium replacemen t complete. Viktoriya Riley Epic gadobenate dimeglumine (Multihance ) injection 11.2 mL gadobenate dimeglumine (Multihance ) injection 11.2 mL 07-31 17:10: 18 07-31 17:10 :00 No .1mmol/ kg 11.2 mL (rounded from 11.18 mL = 0.1 mmol/kg ?55.9 kg), Intravenou s, Once in imaging, Starting on Tue07/31/24 at 1710, For 1 dose Viktoriya Riley Epic perflutren lipid microsphere s (Definity) injection 3.6512 mg perflutren lipid microsphere s (Definity) injection 3.6512 mg 07-31 14:30: 14 07-31 12:50 :00 No 10uL/kg 3.6512 mg (rounded from 3.6447 mg = 10 mcL/kg ?55.9 kg), Intravenou s, Once in imaging, Starting on Tue07/31/24 at 1430, For 1 dose, Contrast - for use by imaging provider only. Prior to administra tion or further dilution, Definity product must be activated. First, bring vial to room temperatur e. Then, shake vial for 45 seconds using manufactur [employer] d Vialmix apparatus. Do not use if the 45 second activation cycle has not been completed. Following activation , the product will appear as a milky white suspension and may be used immediatel y. If not used within 5 minutes of activation , re-suspend by inverting and shaking the vial for 10 seconds. Unused product must be discarded within 12 hours after activation . To administer undiluted, draw up activated product into a 3 or 5 mL syringe. If ordered as a diluted syringe, draw up 8.7 mL of preservati ve free saline into a 10 mL syringe, then slowly withdraw 1.3 mL of activated Definity into same syringe. Gently shake by hand to evenly distribute . If ordered as a diluted infusion, draw up 1.3 mL of activated Definity, then add to a 50 mL preservati ve free saline bag. Gently squeeze IV bag to evenly distribute prior to administra tion. Viktoriya Navarrete sennosides (Senokot) tablet 8.6 mg sennosides (Senokot) tablet 8.6 mg 07-31 09:00: 00 Yes 1{tbl} Q.5D 8.6 mg (1 tablet), Oral, 2 times daily, First dose on Tue07/31/24 at 0900 Viktoriya Navarrete atorvastati n (Lipitor) tablet 40 mg atorvastati n (Lipitor) tablet 40 mg 07-31 09:00: 00 Yes 40mg QD 40 mg, Oral, Daily, First dose on Tue07/31/24 at 0900 Viktoriya Navarrete polyethylen e glycol (PEG) 3350 (Miralax) packet 17 g polyethylen e glycol (PEG) 3350 (Miralax) packet 17 g 07-31 09:00: 08-20 15:51 :17 No 17g QD 17 g, Oral, Daily, First dose on Tue07/31/24 at 09, Dissolve 17 g in 120 to 240 mL (4 to 8 ounces) of beverage. Viktoriya Navarrete aspirin chewable tablet 81 mg aspirin chewable tablet 81 mg 07-31 09:00: 00 08-06 18:38 :39 No 81mg QD 81 mg, Oral, Daily, First dose on Tue07/31/24 at 0900 Viktoriya Navarrete sodium chloride (NS) 0.9 % flush 10 mL sodium chloride (NS) 0.9 % flush 10 mL 07-31 09:00: 00 08-06 23:58 :53 No 10mL Q.5D 10 mL, Intravenou s, Every 12 hours scheduled, First dose on Tue07/31/24 at 0900, Administer at least once every 12 hours Viktoriya Navarrete pantoprazol e (ProtoNix) injection 40 mg pantoprazol e (ProtoNix) injection 40 mg 07-31 09:00: 00 08-01 10:27 :43 No 40mg QD 40 mg, Intravenou s, Every 24 hours scheduled, First dose on Tue07/31/24 at 0900, Until Discontinu ed Viktoriya Navarrete insulin lispro (HumaLOG, Admelog) injection 3-12 Units [id number] 7647-0 3-11 03:11: 17 08-06 22:24 :09 No 3U [id number] 3D 3-12 Units, Subcutaneo us, 3 times daily PRN, high blood sugar, with meals, Starting on Tue07/31/24 at 0311, For BG < 70, follow hypoglycem ia protocol and notify ordering provider. If patient can eat or drink, give oral carbohydra te as ordered per hypoglycem ia protocol. If patient NPO, give dextrose 50 % IV as ordered per hypoglycem ia protocol. If NPO and no IV access, give glucagon IM as ordered per hypoglycem ia protocol. Check BG every 15 minutes and repeat treatment if continued BG < 80., Correction Insulin Dosing: (DO NOT CHANGE DEFAULT SELECTION/ VALUES): Medium, BG < 70 instructio ns: Follow Hypoglycem ia Orders, BG 70-149 instructio ns: No Dose Needed, BG 150-199: 3, BG 200-249: 6, BG 250-299: 9, BG >/= 300: 12, BG > 300 instructio ns: Contact Provider Viktoriya Navarrete heparin 50 units/mL in sodium chloride 0.45 % heparin 50 units/mL in sodium chloride 0.45 % 07-31 03:00: 00 08-07 11:18 :49 No .1U/kg/ h 0.1-40 Units/kg/h r ?54 kg (0.108-43. 2 mL/hr, rounded to 0.11-43.2 mL/hr), Intravenou s, Continuous , Starting on Tue07/31/24 at 0300, AFIB/Strok e PTT Weight Based Heparin Protocol Calculate heparin infusion dose using ACTUAL BODY WEIGHT. Start at 14 units/kg/h r (MAX INITIAL INFUSION = 1,200 units/hr = 24 mL/hr) - adjust per AFIB / Stroke Guidelines below Draw baseline PTT. Initiate drip. DO NOT wait for PTT results to start drip. Draw PTT 6 hours after drip initiation and 6 hours after every dose change. No heparin loading dose or bolus unless specifical ly ordered by provider. Do not draw PTT through line heparin is infused. --- Titration Table PTT < 30 sec: INCREASE dose by 4 units /kg/hr (Actual body Weight). Notify Provider STAT. Draw PTT 6 hours after increase in dose. PTT 30 - 45.9 sec: INCREASE dose by 3 units/kg/h r (Actual body Weight). Draw PTT 6 hours after increase in dose. PTT 46 - 59.9 sec: INCREASE dose by 2 units/kg/h r (Actual body Weight). Draw PTT 6 hours after increase in dose. PTT 60 - 79.9 sec: Therapeuti c, continue at same dose. Redraw PTT in 6 hours to confirm. Once 3 consecutiv e therapeuti c PTT, reduce draws to Q12H. PTT 80 - 90.9 sec: DECREASE dose by 1 unit/kg/hr (Actual Body Weight). Draw PTT 6 hours after decrease in dose. PTT 91 - 99.9 sec: HOLD infusion for 45 min. Notify provider STAT. DECREASE dose by 2 units/kg/h r (Actual Body Weight). Draw PTT 6 hours after decrease in dose. PTT 100 - 119.9 sec: HOLD infusion for 60 min. Notify provider STAT. DECREASE dose by 3 units/kg/h r (Actual Body Weight). Draw PTT 6 hours after decrease in dose. PTT 120 - 150.9 sec: HOLD infusion for 60 min. Notify provider STAT. DECREASE dose by 4 units/kg/h r (Actual Body Weight). Draw PTT 6 hours after decrease in dose. PTT >/= 151 sec: HOLD infusion and repeat PTT STAT through venipunctu re or separate line. Notify provider STAT. 1. If repeat PTT < 151 sec, then follow above protocol. 2. If repeat PTT >/= 151 sec, then continue to HOLD infusion & repeat PTT every 2 hours until PTT < 100 sec. Then DECREASE previous dose by 5 units/kg/h r (Actual Body Weight). Draw PTT 6 hours after decrease in dose ---, On hold since Tue08/06/2024 at 2212 until manually unheld Viktoriya Navarrete amiodarone (Nexterone) 900 mg in dextrose 5 % 500 mL (1.8 mg/mL) infusion amiodarone (Nexterone) 900 mg in dextrose 5 % 500 mL (1.8 mg/mL) infusion 07-31 03:00: 00 08-02 13:30 :37 No .5mg/mi n 0.5 mg/min (16.6667 mL/hr, rounded to 16.67 mL/hr), Intravenou s, Continuous , Starting on Tue07/31/24 at 0300 Viktoriya Navarrete sodium chloride (NS) 0.9 % flush 10 mL sodium chloride (NS) 0.9 % flush 10 mL 07-31 02:53: 31 Yes 10mL Viktoriya Navarrete atorvastati n (Lipitor) tablet 40 mg atorvastati n (Lipitor) tablet 40 mg 07-30 21:00: 00 Yes 40mg 40 mg, Oral, Nightly, First dose on Tue07/30/24 at 2100 Viktoriya Navarrete famotidine (Pepcid) tablet 20 mg famotidine (Pepcid) tablet 20 mg 07-30 17:00: 00 Yes 20mg Q.5D 20 mg, Oral, 2 times daily, First dose on Tue07/30/24 at 1700 Viktoriya Navarrete mupirocin (Bactroban) 2 % ointment mupirocin (Bactroban) 2 % ointment 07-30 17:00: 00 08-02 08:59 :00 No Q.5D Nasal, 2 times daily, First dose (after last modificati on) on Tue07/30/24 at 1700, For 5 doses Viktoriya Navarrete evolocumab (Repatha) injection 140 mg evolocumab (Repatha) injection 140 mg 07-30 15:00: 00 Yes 140mg Q14D 140 mg, Subcutaneo us, Every 14 days, First dose on Tue07/30/24 at 1500, Administer into thigh, upper arm, or abdomen (at least 2 inches from navel); avoid tender, bruised, red, or hard skin. Rotate injection sites. 1st dose: Sunday 07/30 @ 1400- to be self administer ed with nursing guidance 2nd dose: Sunday 08/13 - Dose is kept in pharmacy tuedge and will be sent to nursing unit upon discharge Remove from fridge and allow to sit at room temperatur e for 30 minutes prior to administer ing. Do not shake. Viktoriya Navarrete heparin 50 units/mL in sodium chloride 0.45 % heparin 50 units/mL in sodium chloride 0.45 % 07-30 13:15: 00 Yes .1U/kg/ h 0.1-40 Units/kg/h r ?54.9 kg (0.1098-43 .92 mL/hr, rounded to 0.11-43.92 mL/hr), Intravenou s, Continuous , Starting on Tue07/30/24 at 1315, Recovery & On Unit, Heparin Protocol - ACS PTT Weight Based Calculate heparin boluses and infusion dose using ACTUAL BODY WEIGHT. IV Initial Loading Dose for ACS 60 units/kg (Max 4,000 units) Start at 12 units/kg/h r (MAX INITIAL INFUSION = 1,000 units/hr = 20 mL/hr) - adjust per ACS Guidelines below Draw baseline PTT. Initiate drip. DO NOT wait for PTT results to start drip. Draw PTT 6 hours after drip initiation and 6 hours after every dose change. Do not draw PTT through line heparin is infused --- Titration Table PTT < 45 sec: IV Bolus = 40 units/kg (Actual Body Weight) (max 5,000 units). INCREASE dose by 4 units/kg/h r. Notify Provider. Draw PTT 6 hours after increase in dose. PTT 45 - 55.9 sec: IV Bolus = 20 units/kg (Actual Body Weight) (max 2,500 units). INCREASE dose by 2 units/kg/h r. Draw PTT 6 hours after increase in dose. PTT 56 - 64.9 sec: INCREASE dose by 2 units/kg/h r (Actual Body Weight). Draw PTT 6 hours after increase in dose. PTT 65 - 85.9 sec: Therapeuti c, continue at same dose. Redraw PTT in 6 hours to confirm. Once 3 consecutiv e therapeuti c PTT, reduce draws to Q12H. PTT 86 - 100.9 sec: DECREASE dose by 1 unit/kg/hr (Actual Body Weight). Draw PTT 6 hours after decrease in dose. PTT 101 - 119.9 sec: HOLD infusion for 45 minutes. DECREASE dose by 2 units/kg/h r (Actual Body Weight). Draw PTT 6 hours after decrease in dose. PTT 120 - 150.9 sec: HOLD infusion for 60 minutes. Notify provider STAT. Then, DECREASE dose by 3 units/kg/h r (Actual Body Weight). Draw PTT 6 hours after decrease in dose. PTT 151 - 199.9 sec: HOLD infusion for 60 minutes. Notify provider STAT. Then, DECREASE dose by 4 units/kg/h r (Actual Body Weight). Draw PTT 6 hours after decrease in dose. PTT >/= 200 sec: HOLD infusion and repeat PTT STAT through venipunctu re or separate line. Notify provider STAT. 1. If repeat PTT < 200 sec, then follow above protocol 2. If repeat PTT >/= 200 sec, then continue to HOLD infusion & repeat PTT every 2 hours until PTT < 120 sec. Then, DECREASE previous dose by 5 units/kg/h r. Draw PTT 6 hours after decrease in dose. --- Viktoriya Riley Epic sodium chloride (NS) 0.9 % flush 10 mL sodium chloride (NS) 0.9 % flush 10 mL 07-30 12:49: 54 Yes 10mL Q8H [Order 1 Start] Name: Insert peripheral IV Signed Summary: Once, On Tue07/30/24 at 1250, For 1 occurrence [Order 1 End] [Order 2 Start] Name: Saline lock IV Signed Summary: Once, On Tue07/30/24 at 1250, For 1 occurrence [Order 2 End] [Order 3 Start] Name: sodium chloride (NS) 0.9 % flush 10 mL Signed Summary: 10 mL, Intravenou s, Every 8 hours PRN, line care, Starting on Tue07/30/24 at 1249 [Order 3 End] Viktoriya Riley Epic sodium chloride 0.9 % bolus sodium chloride 0.9 % bolus 07-30 11:53: 07 Yes Administer over 1 Hours, Continuous PRN, Starting on Tue07/30/24 at 1153, Intraproce clay Viktoriya Navarrete sodium chloride 0.9 % infusion sodium chloride 0.9 % infusion 07-30 11:40: 16 Yes Continuous PRN, Starting on Tue07/30/24 at 1140, Intraproce armanie Viktoriya Navarrete benzocaine (HurriCaine ) 20 % spray benzocaine (HurriCaine ) 20 % spray 07-30 11:00: 31 07-30 11:18 :59 No As needed, Starting on Tue07/30/24 at 1100, Intraproce clay Navarrete ipratropium -albuterol (Duo-Neb) 0.5-2.5 mg/3 mL nebulizer solution 3 mL ipratropium -albuterol (Duo-Neb) 0.5-2.5 mg/3 mL nebulizer solution 3 mL 07-30 10:49: 10 Yes 3mL Q8H 3 mL, Nebulizati on, Every 8 hours PRN, wheezing, Starting on Tue07/30/24 at 1049 Viktoriya Navarrete evolocumab (Repatha SureClick) 140 MG/ML Subcutaneou s Solution Auto-inject or evolocumab (Repatha SureClick) 140 MG/ML Subcutaneou s Solution Auto-inject or 07-30 00:00: 00 08-29 23:59 :00 No 140mg Q14D Inject 1 mL under the skin every 14 days. Viktoriya Navarrete metoprolol tartrate (Lopressor) tablet 25 mg metoprolol tartrate (Lopressor) tablet 25 mg 07-29 14:00: 00 Yes 25mg [id number] 3D 25 mg, Oral, Every 8 hours scheduled, First dose (after last modificati on) on Tue07/29/24 at 1400, Hold for HR below 60 bpm and SBP <90 mmHg Viktoriya Navarrete digoxin (Lanoxin) injection 125 mcg digoxin (Lanoxin) injection 125 mcg 07-29 03:45: 00 07-30 10:56 :37 No 125ug Q6H 125 mcg, Intravenou s, Administer over 5 Minutes, Every 6 hours, First dose on 07/29/24 at 0345, Give as slow IVP over >/= 5 minutes Viktoriya Riley Epic melatonin tablet 3 mg melatonin tablet 3 mg 07-28 21:00: 00 Yes 3mg QD 3 mg, Oral, Nightly PRN, sleep, Starting on 07/28/24 at 2100 Viktoriya pierre Osvaldo Epic amiodarone (Cordarone) 150 mg in dextrose 5 % 100 mL IVPB (RN PREP) amiodarone (Cordarone) 150 mg in dextrose 5 % 100 mL IVPB (RN PREP) 07-28 20:45: 00 07-28 21:19 :00 No 150mg 150 mg, Intravenou s, at 600 mL/hr, Administer over 10 Minutes, Once, On 07/28/24 at 2044, For 1 dose Viktoriya pierre Osvaldo Epic digoxin (Lanoxin) injection 250 mcg digoxin (Lanoxin) injection 250 mcg 07-28 20:45: 00 07-28 21:18 :00 No 250ug 250 mcg, Intravenou s, Administer over 5 Minutes, Once, On 07/28/24 at 2044, For 1 dose, Give as slow IVP over >/= 5 minutes Viktoriya pierre Osvaldo Epic amiodarone (Nexterone) 1.8 mg/mL infusion amiodarone (Nexterone) 1.8 mg/mL infusion 07-28 20:37: 00 Yes .5mg/mi n 0.5 mg/min (16.6667 mL/hr, rounded to 16.67 mL/hr), Intravenou s, Continuous , Starting on 07/28/24 at 2036, Hold for HR < 50 BPM. Use in-line filter with infusion. Administer through central venous catheter whenever available. Provider should consider changing to oral amiodarone if appropriat e after 24 hours of continuous infusion. Use in-line filter. Give through central venous catheter whenever available. Premix Viktoriya pierre Osvaldo Epic amiodarone (Cordarone) 150 mg in dextrose 5 % 100 mL IVPB (RN PREP) amiodarone (Cordarone) 150 mg in dextrose 5 % 100 mL IVPB (RN PREP) 07-28 13:15: 00 07-28 13:33 :00 No 150mg 150 mg, Intravenou s, at 600 mL/hr, Administer over 10 Minutes, Once, On 07/28/24 at 1315, For 1 dose Viktoriya Navarrete aspirin EC EC tablet 81 mg aspirin EC EC tablet 81 mg 07-28 09:00: 00 Yes 81mg QD 81 mg, Oral, Daily, First dose on 07/28/24 at 0900, Do not crush, chew, or split. Viktoriya Navarrete senna-docus ate (Zully-Colac e) 8.6-50 mg per tablet 2 tablet senna-docus ate (Zully-Colac e) 8.6-50 mg per tablet 2 tablet 07-28 09:00: 00 Yes 2{tbl} Q.5D 2 tablet, Oral, 2 times daily, First dose on 07/28/24 at 0900, Hold if patient has > 3 loose bowel movements or 300 mL stool within 24H. Viktoriya Navarrete mupirocin (Bactroban) 2 % ointment mupirocin (Bactroban) 2 % ointment 07-28 09:00: 00 07-30 10:44 :57 No Q.5D Topical, 2 times daily, First dose on 07/28/24 at 0900, For 5 days Viktoriya Navarrete metoprolol tartrate (Lopressor) tablet 12.5 mg metoprolol tartrate (Lopressor) tablet 12.5 mg 07-28 09:00: 00 07-29 10:12 :24 No 12.5mg Q.5D 12.5 mg, Oral, Every 12 hours scheduled, First dose on 07/28/24 at 0900, Hold for HR below 60 bpm Viktoriya Navarrete levalbutero l (Xopenex) 1.25 MG/3ML nebulizer solution 1.25 mg levalbutero l (Xopenex) 1.25 MG/3ML nebulizer solution 1.25 mg 07-28 08:45: 00 07-30 10:47 :47 No 1.25mg Q6H 1.25 mg, Nebulizati on, Every 6 hours, First dose on 07/28/24 at 0845, Do not change schedule or to other nebulized treatment Viktoriya Navarrete ipratropium (Atrovent) 0.02 % nebulizer solution 0.5 mg ipratropium (Atrovent) 0.02 % nebulizer solution 0.5 mg 07-28 08:00: 00 07-30 10:47 :47 No .5mg Q.25D 0.5 mg, Nebulizati on, Every 6 hours RT, First dose on 07/28/24 at 0800 Viktoriya Riley Epic calcium gluconate 1g in NaCl 50mL IVPB 1 g calcium gluconate 1g in NaCl 50mL IVPB 1 g 07-28 06:37: 05 Yes 1g 1 g, Intravenou s, at 100 mL/hr, Administer over 30 Minutes, As needed, Abnormal Lab Result, FOR ICU USE ONLY, Starting on 07/28/24 at 0637, For ionized calcium 0.8 to 0.9 mmol/L: Replace with calcium gluconate 1 gram IVPB over 30 minutes For ionized calcium </= 0.79 mmol/L: Replace with calcium gluconate 2 grams IVPB over 30 minutes and notify MD Recheck Ionized Calcium level 2 hours after Calcium replacemen t complete. Viktoriya Riley Epic magnesium sulfate IVPB 2 g magnesium sulfate IVPB 2 g 07-28 06:37: 05 Yes 2g 2 g, Intravenou s, Administer over 4 Hours, As needed, Abnormal Lab Result, FOR ICU USE ONLY, Starting on 07/28/24 at 0637, For magnesium 1.6 to 1.8 mg/dL: Replace with Mg Sulfate 2 grams IVPB over 4 hours x 1 dose. For magnesium 1.9 to 2.3 mg/dL(in CV surgery patients only): Replace with Mg Sulfate 2 grams IVPB over 4 hours X 1 dose> For magnesium </= 1.5 mg/dL: Replace with Mg Sulfate 2 grams IVPB over 4 hours X 2 doses. Notify MD if magnesium </= 1.1 mg/dL Recheck Magnesium level 2 hours after Magnesium replacemen t complete. Viktoriya Riley Epic potassium & sodium phosphates (Phos-NaK) 280-160-250 MG packet 2 packet potassium & sodium phosphates (Phos-NaK) 280-160-250 MG packet 2 packet 07-28 06:37: 05 Yes 2{packe t} Q4H [Order 1 Start] Name: potassium & sodium phosphates (Phos-NaK) 280-160-25 0 MG packet 2 packet Signed Summary: 2 packet, Oral, Every 4 hours PRN, Abnormal Lab Result, FOR ICU USE ONLY, Starting on 07/28/24 at 0637, For 6 doses, For phosphorus 1.6 to 3.0 mg/dL: Replace with potassium phosphate- sodium phosphate 250 mg-280 mg-160 mg oral powder 2 packets PO every 4 hours x 6 doses. Do Not Use if Potassium > 5 mEq/L Notify MD for phosphorus </= 1.4 mg/dL Recheck Phosphorus level 2 hours after Phosphorou s replacemen t complete. [Order 1 End] [Order 2 Start] Name: potassium & sodium phosphates (Phos-NaK) 280-160-25 0 MG packet 2 packet Signed Summary: 2 packet, Per G Tube, Every 4 hours PRN, Abnormal Lab Result, FOR ICU USE ONLY, Starting on 07/28/24 at 0637, For 6 doses, For phosphorus 1.6 to 3.0 mg/dL: Replace with potassium phosphate- sodium phosphate 250 mg-280 mg-160 mg oral powder 2 packets PO every 4 hours x 6 doses. Do Not Use if Potassium > 5 mEq/L Notify MD for phosphorus </= 1.4 mg/dL Recheck Phosphorus level 2 hours after Phosphorou s replacemen t complete. [Order 2 End] Viktoriya Riley Epic sodium phosphates 45 mmol in sodium chloride 0.9 % 100 mL IVPB sodium phosphates 45 mmol in sodium chloride 0.9 % 100 mL IVPB 07-28 06:37: 05 Yes 45mmol 45 mmol, Intravenou s, at 25 mL/hr, Administer over 4 Hours, As needed, Abnormal Lab Result, FOR ICU USE ONLY, Starting on 07/28/24 at 0637, For phosphorus </= 1.5 mg/dL: Replace with NaPhos 45 mmol IVPB over 4 hours x 1 dose, and potassium phosphate- sodium phosphate 250 mg-280 mg-160 mg oral powder 2 packets PO/GT every 4 hours x 6 doses. Notify MD if phosphorus </= 1.4 mg/dL. Recheck Phosphorus level 2 hours after Phosphorou s replacemen t complete. Viktoriya Navarrete potassium chloride IVPB 20 mEq potassium chloride IVPB 20 mEq - 06:37: 05 Yes 20meq [Order 1 Start] Name: potassium chloride IVPB 20 mEq Signed Summary: 20 mEq, Intravenou s, at 50 mL/hr, Administer over 2 Hours, As needed, Abnormal Lab Result, Via Central Line. FOR ICU USE ONLY, Starting on 07/28/24 at 0637, Use PO or GT administra tion unless patient is first 12 hours post-op, active GI bleed, arrhythmia s, ischemic bowel or NPO.For patients with central venous access, use 20 mEq IVPB over 1 hour and repeat until total replacemen t dose is reached. For K 3.4 to 3.5 mEq/L: Replace with KCl 20 mEq IVPB Q1H x 2 doses For K 3.1 to 3.3 mEq/L: Replace with KCl 20 mEq IVPB Q1H x 3 doses. For K </= 3.0 mEq/L: Replace with KCl 20 mEq IVPB Q1H x 4 doses. Notify MD if potassium </= 2.9 mEq/L Recheck Potassium level 2 hours after IVPB Potassium replacemen t complete. For central line administra tion only. [Order 1 End] [Order 2 Start] Name: potassium chloride IVPB 10 mEq Signed Summary: 10 mEq, Intravenou s, As needed, Abnormal Lab Result, Via peripheral line, FOR ICU USE ONLY, Starting on 07/28/24 at 0637, Use PO or GT administra tion unless patient is first 12 hours post-op, active GI bleed, arrhythmia s, ischemic bowel or NPO.For patients with peripheral venous access, use 10 mEq IVPB over 1 hour and repeat until total replacemen t dose is reached. For K 3.4 to 3.5 mEq/L: Replace with KCl 10 mEq IVPB Q1H x 4 doses. For K 3.1 to 3.3 mEq/L: Replace with KCl 10 mEq IVPB Q1H x 6 doses. For K </= 3.0 mEq/L: Replace with KCl 10 mEq IVPB Q1H x 8 doses. Notify MD if potassium </= 2.9 mEq/L Recheck Potassium level 2 hours after IVPB Potassium replacemen t complete. [Order 2 End] [Order 3 Start] Name: potassium chloride CR (Klor-Con M20) ER tablet 20 mEq Signed Summary: 20 mEq, Oral, As needed, Abnormal Lab Result, FOR ICU USE ONLY, Starting on 07/28/24 at 0637, Use PO administra tion unless patient is first 12 hours post-op, active GI bleed, arrhythmia s, ischemic bowel or NPO. For K 3.4 to 3.5 mEq/L: Replace with KCl 40 mEq PO x 1 dose. For K 3.1 to 3.3 mEq/L: Replace with KCl 60 mEq PO x 1 dose? For K </= 3.0 mEq/L: Replace with KCl 40 mEq PO Q2H x 2 doses. Notify MD if potassium </= 2.9 mEq/L? Recheck Potassium level 4 hours after PO/GT Potassium replacemen t complete. ? DO NOT CRUSH.? For patients able to take medication s orally or via feeding tube >/= 14 [place], may dissolve each 20 mEq tablet in 4 oz of water.? Allow about 2 minutes for the tablets to disintegra te.? Stir before giving to prepare slurry and administer .? Please exclude patient's with feeding tube less than 14 [place] (Dobhoff, J-tube, etc) and pediatric and patients. Do not crush or chew. [Order 3 End] [Order 4 Start] Name: Potassium chloride solution 20 mEq Signed Summary: 20 mEq, Per G Tube, As needed, Abnormal Lab Result, FOR ICU USE ONLY, Starting on 07/28/24 at 0637, Use GT administra tion unless patient is first 12 hours post-op, active GI bleed, arrhythmia s, ischemic bowel or NPO. For K 3.4 to 3.5 mEq/L: Replace with KCl 40 mEq GT x 1 dose. For K 3.1 to 3.3 mEq/L: Replace with KCl 60 mEq GT x 1 dose For K </= 3.0 mEq/L: Replace with KCl 40 mEq GT Q2H x 2 doses. Notify MD if potassium </= 2.9 mEq/L Recheck Potassium level 4 hours after PO/GT Potassium replacemen t complete. [Order 4 End] Viktoriya ignacio [place] ampicillin- sulbactam (Unasyn) 1.5 g in sodium chloride 0.9 % 100 mL IVPB-MB+ ampicillin- sulbactam (Unasyn) 1.5 g in sodium chloride 0.9 % 100 mL IVPB-MB+ 07-28 06:00: 00 08-02 08:59 :00 No 1.5g Q6H 1.5 g, Intravenou s, at 200 mL/hr, Administer over 30 Minutes, Every 6 hours, First dose on 07/28/24 at 0600, For 5 days, Mini-Bag Plus bag. Break seal and mix before use, as follows: For liquid drug vials, skip to step 2. 1. Hold bag with vial down. Squeeze solution into vial until half-full. Shake to suspend drug in solution. 2. Hold bag with vial upside down. Squeeze bag to force air into vial, then release to drain suspended drug from vial into bag. 3. Repeat above until vial is empty of drug and solution is thoroughly mixed. Ensure drug is completely dissolved. Do not remove drug vial. 4. Remove port protector, attach admin set per its instructio ns, then hang container from IV pole and prime set per directions . Do not use in series connection s. 5. Ensure the vial is empty of drug and in solution, then administer medication as ordered. Use within specified BUD., Suspected Indication (Select all that apply): Skin/Soft Tissue Infection Viktoriya Antoineann [place] furosemide (Lasix) 100 mg in sodium chloride 0.9 % 100 mL (1 mg/mL) infusion furosemide (Lasix) 100 mg in sodium chloride 0.9 % 100 mL (1 mg/mL) infusion 07-28 06:00: 00 07-30 10:48 :22 No 5mg/h 5 mg/hr (5 mL/hr), Intravenou s, Continuous , Starting on 07/28/24 at 0600 Viktoriya ignacio [place] Epic heparin 50 units/mL in sodium chloride 0.45 % heparin 50 units/mL in sodium chloride 0.45 % 07-28 05:30: 00 07-30 13:01 :50 No .1U/kg/ h 0.1-40 Units/kg/h r ?54.9 kg (0.1098-43 .92 mL/hr, rounded to 0.11-43.92 mL/hr), Intravenou s, Continuous , Starting on 07/28/24 at 0530, Heparin Protocol - ACS PTT Weight Based Calculate heparin boluses and infusion dose using ACTUAL BODY WEIGHT. IV Initial Loading Dose for ACS 60 units/kg (Max 4,000 units) Start at 12 units/kg/h r (MAX INITIAL INFUSION = 1,000 units/hr = 20 mL/hr) - adjust per ACS Guidelines below Draw baseline PTT. Initiate drip. DO NOT wait for PTT results to start drip. Draw PTT 6 hours after drip initiation and 6 hours after every dose change. Do not draw PTT through line heparin is infused --- Titration Table PTT < 45 sec: IV Bolus = 40 units/kg (Actual Body Weight) (max 5,000 units). INCREASE dose by 4 units/kg/h r. Notify Provider. Draw PTT 6 hours after increase in dose. PTT 45 - 55.9 sec: IV Bolus = 20 units/kg (Actual Body Weight) (max 2,500 units). INCREASE dose by 2 units/kg/h r. Draw PTT 6 hours after increase in dose. PTT 56 - 64.9 sec: INCREASE dose by 2 units/kg/h r (Actual Body Weight). Draw PTT 6 hours after increase in dose. PTT 65 - 85.9 sec: Therapeuti c, continue at same dose. Redraw PTT in 6 hours to confirm. Once 3 consecutiv e therapeuti c PTT, reduce draws to Q12H. PTT 86 - 100.9 sec: DECREASE dose by 1 unit/kg/hr (Actual Body Weight). Draw PTT 6 hours after decrease in dose. PTT 101 - 119.9 sec: HOLD infusion for 45 minutes. DECREASE dose by 2 units/kg/h r (Actual Body Weight). Draw PTT 6 hours after decrease in dose. PTT 120 - 150.9 sec: HOLD infusion for 60 minutes. Notify provider STAT. Then, DECREASE dose by 3 units/kg/h r (Actual Body Weight). Draw PTT 6 hours after decrease in dose. PTT 151 - 199.9 sec: HOLD infusion for 60 minutes. Notify provider STAT. Then, DECREASE dose by 4 units/kg/h r (Actual Body Weight). Draw PTT 6 hours after decrease in dose. PTT >/= 200 sec: HOLD infusion and repeat PTT STAT through venipunctu re or separate line. Notify provider STAT. 1. If repeat PTT < 200 sec, then follow above protocol 2. If repeat PTT >/= 200 sec, then continue to HOLD infusion & repeat PTT every 2 hours until PTT < 120 sec. Then, DECREASE previous dose by 5 units/kg/h r. Draw PTT 6 hours after decrease in dose. --- Memoria ignacio Osvaldo Epic heparin 1000 units/mL injection 1,100 Units heparin 1000 units/mL injection 1,100 Units 0 07-28 05:26: 18 Yes 20U/kg 1,100 Units (rounded from 1,098 Units = 20 Units/kg ?54.9 kg), Intravenou s, As needed, per current PTT results. For use when PTT 45.0 - 55.9 sec, Starting on 07/28/24 at 0526, PRN bolus. ACS Heparin Weight Based Dosing Protocol - PTT. For use when PTT 45 - 55.9 sec: IV Bolus = 20 units/kg (Actual Body Weight) (maximum 2,500 units). INCREASE dose by 2 units/kg/h r. Notify Provider. Draw PTT 6 hours after increase in dose. Viktoriya pierre [place] Epic heparin 1000 units/mL injection 2,200 Units heparin 1000 units/mL injection 2,200 Units 0 07-28 05:26: 18 Yes 40U/kg 2,200 Units (rounded from 2,196 Units = 40 Units/kg ?54.9 kg), Intravenou s, As needed, per current PTT results. For use when PTT < 45.0 sec, Starting on 07/28/24 at 0526, PRN bolus. ACS Heparin Weight Based Dosing Protocol - PTT. For use when PTT < 45 sec. IV Bolus = 40 units/kg (Actual Body Weight) (maximum 5,000 units). INCREASE infusion dose by 4 units/kg/h r. Notify Provider. Draw PTT 6 hours after increase in dose. Daisyoria l Osvaldo Epic acetaminoph en (Tylenol) tablet 650 mg acetaminoph en (Tylenol) tablet 650 mg 07-28 05:00: 00 Yes 650mg Q6H 650 mg, Oral, Every 6 hours PRN, mild pain (1-3), Starting on 07/28/24 at 0500, Max acetaminop hen = 4000mg/day (4gm/day) Viktoriya Navarrete sodium chloride (NS) 0.9 % flush 10 mL sodium chloride (NS) 0.9 % flush 10 mL 07-28 05:00: 00 Yes 10mL Q12H 10 mL, Intravenou s, Every 12 hours, First dose on 07/28/24 at 0500, Administer at least once every 12 hours Viktoriya Navarrete insulin lispro (HumaLOG, Admelog) injection 2-8 Units [id number] 2414-0 3-08 04:49: 57 Yes 2U Q4H 2-8 Units, Subcutaneo us, Every 4 hours PRN, high blood sugar, Starting on 07/28/24 at 0449, 1. IF 2 consecutiv e BG are >160 mg/dL, notify provider. 2. IF 2 consecutiv e BG are < 110 mg/dL, notify provider. 3. IF 2 consecutiv e BG are >200 mg/dL or 1 BG is > or = to 300 mg/dL, notify provider then INITIATE Insulin drip 4. When initiating the Insulin Infusion Orders for ICU MPP, please discontinu e the ICU insulin Sub Q correction dose MPP and any orders for basal SQ insulin. Select the order communicat ion type as secondary. 5. When transferri out of ICU please inform MD to discontinu e critical care Sub-Q orders and initiate floor Sub-Q orders., Correction Insulin Dosing: (DO NOT CHANGE DEFAULT SELECTION/ VALUES): Starting, BG < 70 instructio ns: Follow Hypoglycem ia Orders, BG 70-149 instructio ns: No Dose Needed, BG 150-199: 2, BG 200-249: 4, BG 250-299: 6, BG >/= 300: 8, BG > 300 instructio ns: Contact Provider Viktoriya Navarrete glucagon injection 1 mg glucagon injection 1 mg 07-28 04:49: 46 Yes 1mg 1 mg, Intramuscu lar, As needed, For BG < 70 mg/dL if no IV access and patient is either Unconsciou s, unable to swallow or npo, Starting on 07/28/24 at 044, For BG < 70 mg/dL if no IV access and patient is either Unconsciou s, unable to swallow or npo and notify MD. Viktoriya Riley Epic dextrose 50 % solution 25 g dextrose 50 % solution 25 g 07-28 04:49: 46 Yes 25g 25 g, Intravenou s, As needed, other, if Blood Glucose </= 50 mg/dL, Starting on 07/28/24 at 0449, If BG </=50 mg/dL, give 50 mL of D50W IV push STAT and notify MD. Viktoriya Riley Epic dextrose 50 % solution 12.5 g dextrose 50 % solution 12.5 g 07-28 04:49: 46 Yes 12.5g 12.5 g, Intravenou s, As needed, low blood sugar, if Blood Glucose 51- 69 mg/dL, Starting on 07/28/24 at 448, For BG 51-69 mg/dL and patient UNCONSCIOU S OR UNABLE TO SWALLOW OR NPO: Give 25 mL of D50W IV push and notify MD. Viktoriya Riley Epic polyethylen e glycol (PEG) 3350 (Miralax) packet 17 g polyethylen e glycol (PEG) 3350 (Miralax) packet 17 g 07-28 04:45: 19 Yes 17g Q24H 17 g, Oral, Daily PRN, constipati on, Starting on 07/28/24 at 444, 17 grams of powder dissolved in 4-8 ounces of beverage. Hold if patient has > 3 loose bowel movements or 300 mL stool within 24H. Dissolve 17 g in 120 to 240 mL (4 to 8 ounces) of beverage. Viktoriya Riley Epic nystatin (Mycostatin ) [id number] UNIT/GM powder nystatin (Mycostatin ) 201514 UNIT/GM powder 07-28 04:45: 19 Yes Topical, As needed, For Fungal Prophylaxi s, Starting on 07/28/24 at 444, Apply to groin and intertrigi nous areas after bathing (no cornstarch baby powder). For ICU only. Viktoriya Riley Epic sodium chloride 0.9 % infusion 250 mL sodium chloride 0.9 % infusion 250 mL 07-28 04:45: 19 Yes 250mL 250 mL, Intravenou s, As needed, For antibiotic flush to clear line, replace bag every 24 hours., Starting on 07/28/24 at 0445 Viktoriya Riley Epic sodium chloride (NS) 0.9 % flush 10 mL sodium chloride (NS) 0.9 % flush 10 mL 07-28 04:45: 19 Yes 10mL 10 mL, Intravenou s, As needed, line care, Line Flush, Starting on 07/28/24 at 0445 Viktoriya Riley Epic docusate 100 mg capsule 12-22 00:00: 00 Yes [id number] 100mg Take 1 capsule by mouth daily. [facility] famotidine (PEPCID) tablet 40 mg 12-21 14:00: 00 Yes 40mg 40 mg, Oral, DAILY, First dose on [facility] 12/22/19 at 0900, Until Discontinu ed, Routine [facility] enoxaparin (LOVENOX) injection 40 mg 12-21 14:00: 00 Yes 40mg 40 mg, Subcutaneo us, DAILY, First dose on [facility] 12/22/19 at 0900, Until Discontinu ed, Routine [facility] docusate (COLACE) capsule 100 mg 12-21 14:00: 00 Yes 100mg 100 mg, Oral, DAILY, First dose on [facility] 12/22/19 at 0900, Until Discontinu ed, Routine [facility] acetaminoph en 500 mg tablet 12-21 00:00: 00 Yes [id number] 500mg Take 1 tablet by mouth every 6 (six) hours as needed for Pain. [facility] ibuprofen 400 mg tablet 12-21 00:00: 00 Yes [id number] 400mg Take 1 tablet by mouth 3 (three) times daily with meals. [facility] minocycline 100 mg capsule 12-21 00:00: 00 12-29 04:59 :00 No [id number] 100mg Take 1 capsule by mouth every 12 (twelve) hours for 7 days. [facility] ibuprofen (IBU) tablet 400 mg 12-20 22:00: 00 Yes 400mg 400 mg, Oral, TID MEALS, First dose on Tue12/21/19 at 1700, Until Discontinu ed, Routine [facility] Sliding Scale Insulin - Aspart (NOVOLOG) + Fsbg Testing 12-20 22:00: 00 Yes Subcutaneo us, TID MEALS+HS, First dose on Tue12/21/19 at 1700, Until Discontinu ed, Routine [facility] lactated ringers IV infusion 1,000 mL 12-20 21:00: 00 Yes 1000mL at 42 mL/hr, 1,000 mL, IV Infusion, CONTINUOUS , Starting Tue12/21/19 at 1600, Until Discontinu ed, Routine, PACU [facility] HYDROcodone -acetaminop hen (NORCO 5) 5-325 mg tablet 1 tablet 12-20 21:00: 00 12-20 21:20 :00 No 1{tbl} 1 tablet, Oral, ONCE, 1 dose, Tue12/21/19 at 1600, Routine, PACU [facility] piperacilli n-tazobacta m (ZOSYN) 3.375 g in NaCl 0.9% (NS) 100 mL MINI-BAG 12-20 20:00: 00 Yes 3.375g 3.375 g, IV Piggyback, Q6H ABX, First dose on Tue12/21/19 at 1500, Until Discontinu ed, 100 mL
Reas on for Anti-Infec tive: Documented Infection< br>Documen dana Infection Site: Skin / Soft Tissue
Duration of Therapy: 7 days [facility] morpHINE injection 2 mg 12-20 19:30: 00 12-20 18:30 :00 No 2mg 2 mg, Slow IV Push, ONCE, 1 dose, Tue12/21/19 at 1430, Routine [facility] lactated ringers IV infusion 1,000 mL 12-20 18:45: 00 Yes 1000mL at 100 mL/hr, 1,000 mL, IV Infusion, CONTINUOUS , Starting Tue12/21/19 at 1345, Until Discontinu ed, Routine [facility] acetaminoph en (TYLENOL) tablet 500 mg 12-20 18:40: 19 Yes 500mg 500 mg, Oral, Q6HPRN, Starting Tue12/21/19 at 1340, Until Discontinu ed, Routine, Pain (scale 1-3), Pain (scale 4-6) [facility] morpHINE injection 2 mg 12-20 18:40: 10 Yes 2mg 2 mg, Slow IV Push, Q4HPRN, Starting Tue12/21/19 at 1340, Until Discontinu ed, Routine, Pain (scale 7-10) [facility] ondansetron (ZOFRAN (PF)) injection 4 mg 12-20 18:39: 21 Yes 4mg 4 mg, Slow IV Push, Administer over 15 Minutes, Q8HPRN, Starting Tue12/21/19 at 1339, Until Discontinu ed, Routine, Nausea and Vomiting (N/V) [facility] FENTanyl PF (SUBLIMAZE (PF)) injection 50 mcg 12-20 16:34: 00 12-20 16:34 :00 No 50ug 50 mcg, Slow IV Push, ONCE, 1 dose, Tue12/21/19 at 1145, STAT [facility] morpHINE injection 4 mg 12-20 16:00: 00 12-20 14:47 :00 No 4mg 4 mg, Slow IV Push, ONCE, 1 dose, Tue12/21/19 at 1100, STAT [facility] Vancomycin 750 mg in NaCl 0.9% (NS) 250 mL VIAL-MATE 12-20 15:30: 00 12-20 16:26 :00 No 15mg/kg 750 mg (rounded from 816 mg = 15 mg/kg ?54.4 kg), IV Piggyback, ONCE, 1 dose, Tue12/21/19 at 1030, 250 mL
Reas on for Anti-Infec tive: Documented Infection< br>Documen dana Infection Site: Skin / Soft Tissue
Duration of Therapy: Other (see Comments) [facility] piperacilli n-tazobacta m (ZOSYN) 3.375 g in NaCl 0.9% (NS) 100 mL MINI-BAG 12-20 15:30: 00 12-20 15:19 :00 No 3.375g 3.375 g, IV Piggyback, ONCE, 1 dose, Tue12/21/19 at 1030, 100 mL
Reas on for Anti-Infec tive: Documented Infection< br>Documen dana Infection Site: Skin / Soft Tissue
Duration of Therapy: Other (see Comments) [facility] iohexol (OMNIPAQUE 350 BULK-100 mL) injection 100 mL 12-20 14:10: 00 12-20 14:10 :00 No 100mL 100 mL, Intravenou s, ONCE, 1 dose, Tue12/21/19 at 0930, Routine [facility] ondansetron (ZOFRAN (PF)) injection 4 mg 12-20 13:45: 00 12-20 13:15 :00 No 4mg 4 mg, Slow IV Push, ONCE, 1 dose, Tue12/21/19 at 0845, [facility] morpHINE injection 4 mg 12-20 13:45: 00 12-20 13:15 :00 No 4mg 4 mg, Slow IV Push, ONCE, 1 dose, Tue12/21/19 at 0845, STAT [facility] fluconazole 150 mg oral tablet 09-07 16:20: 53 Yes 150 mg = 1 tab, PO, ONCE, Repeat in 1 week., # 1 tab, 0 Refill(s), Pharmacy: [facility] [id number] fluconazole 150 mg oral tablet 07-27 14:08: 00 No 150 mg = 1 tab, PO, ONCE, Repeat in 1 week., # 2 tab, 0 Refill(s), Pharmacy: [facility] [id number] Vital Signs Vital Name Observation Time Observation Value Comments Darien ashley Systolic blood pressure 2024-08-22 16:00:00 105 mm[Hg] [facility] Epic Diastolic blood pressure 2024-08-22 16:00:00 67 mm[Hg] [facility] Heart rate 2024-08-22 16:00:00 65 /min [facility] [place] Epic Body temperature 2024-08-22 16:00:00 36.5 [facility] Respiratory rate 2024-08-22 16:00:00 18 /min [facility] Oxygen saturation in Arterial blood by Pulse oximetry 2024-08-22 16:00:00 98 /min Bharathi Navarrete Body weight 2024-08-22 05:00:00 51.9 kg Mark evettel [facility] Epic BMI 2024-08-22 05:00:00 20.27 kg/m2 [facility] [place] Epic Body height 2024-08-19 12:40:00 160 cm [facility] [place] Epic Systolic blood pressure 2024-08-22 16:00:00 105 mm[Hg] Bharathi reddy [facility] Diastolic blood pressure 2024-08-22 16:00:00 67 mm[Hg] Bharathi reddy [facility] Heart rate 2024-08-22 16:00:00 65 /min [facility] Epic Body temperature 2024-08-22 16:00:00 36.5 [facility]do Epic Respiratory rate 2024-08-22 16:00:00 18 /min [facility] Epic Oxygen saturation in Arterial blood by Pulse oximetry 2024-08-22 16:00:00 98 /min Bharathi reddy [facility] Body weight 2024-08-22 05:00:00 51.9 kg Mark rial [facility] Epic BMI 2024-08-22 05:00:00 20.27 kg/m2 Mark nava [place] Epic Body height 2024-08-19 12:40:00 160 cm [facility] [place] Epic Systolic blood pressure 2024-07-31 00:15:00 118 mm[Hg] Bharathi reddy [facility] Diastolic blood pressure 2024-07-31 00:15:00 60 mm[Hg] Bharathi reddy Epic Heart rate 2024-07-31 00:15:00 72 /min [facility] [place] Epic Respiratory rate 2024-07-31 00:15:00 20 /min [facility] O[facility] saturation in Arterial blood by Pulse oximetry 2024-07-31 00:15:00 94 /min [facility] Her reddy [facility] Body temperature 2024-07-30 20:00:00 36.11 Monica Navarrete Body weight 2024-07-28 09:09:00 54 kg Mark Antoineann Epic Systolic blood pressure 2024-07-31 00:15:00 118 mm[Hg] Bharathi reddy Epic Diastolic blood pressure 2024-07-31 00:15:00 60 mm[Hg] Bharathi reddy Epic Heart rate 2024-07-31 00:15:00 72 /min [facility] Epic Respiratory rate 2024-07-31 00:15:00 20 /min [facility] Epic Oxygen saturation in Arterial blood by Pulse oximetry 2024-07-31 00:15:00 94 /min Bharathi reddy [facility] Body temperature 2024-07-30 20:00:00 36.11 Monica Bharathi Navarrete Body weight 2024-07-28 09:09:00 54 kg Mark vick [facility] Epic Systolic blood pressure 2019-12-22 16:41:00 116 mm[Hg] [facility] Diastolic blood pressure 2019-12-22 16:41:00 49 mm[Hg] [facility] Heart rate 2019-12-22 16:41:00 72 /min [facility] Body temperature 2019-12-22 16:41:00 36.56 Monica [facility] Respiratory rate 2019-12-22 16:41:00 16 /min [facility] Oxygen saturation in Arterial blood by Pulse oximetry 2019-12-22 16:41:00 93 /min [facility] Body weight 2019-12-21 17:46:00 54.432 kg Univ [facility] Systolic blood pressure 2019-12-21 16:00:00 122 mm[Hg] [facility] Diastolic blood pressure 2019-12-21 16:00:00 74 mm[Hg] [facility] Heart rate 2019-12-21 16:00:00 92 /min [facility] Respiratory rate 2019-12-21 16:00:00 16 /min [facility] Oxygen saturation in Arterial blood by Pulse oximetry 2019-12-21 16:00:00 97 /min [facility] Body temperature 2019-12-21 11:46:00 37 Monica [facility] Body weight 2019-12-21 11:46:[address] [facility] Respitory Rate 2017-07-27 13:52:00 [facility] Heart Rate 2017-07-27 13:52:00 [facility] Weight 2017-07-27 13:52:00 [facility] Systolic (mm Hg) 2017-07-27 13:52:00 [facility] Diastolic (mm Hg) 2017-07-27 13:52:00 [facility] Procedures Procedure Date / Time Performed Performing Clinician Source POC GLUCOSE UNSOLICITED RESULTS 2024-08-22 17:08:00 Sharyn Gamble [facility] COMPLETE BLOOD COUNT W/DIFF AND PLATELET 2024-08-22 14:14:00 Digna Boles [facility] COMPLETE BLOOD COUNT 2024-08-22 14:14:00 Delonte Boles [facility] AUTOMATED DIFFERENTIAL 2024-08-22 14:14:00 Gilda Boles [facility] POC GLUCOSE UNSOLICITED RESULTS 2024-08-22 12:10:00 Sharyn Gamble [facility] POC GLUCOSE UNSOLICITED RESULTS 2024-08-22 08:02:00 Sharyn Gamble [facility] BASIC METABOLIC PANEL 2024-08-22 04:37:00 Renetta Fowler [facility] MAGNESIUM LEVEL 2024-08-22 04:37:00 Velvet Diaz [facility] PHOSPHORUS LEVEL 2024-08-22 04:37:00 Velvet Diaz [facility] [place] Epic COMPLETE BLOOD COUNT W/DIFF AND PLATELET 2024-08-22 04:37:00 Velvet Diaz [facility] COMPLETE BLOOD COUNT 2024-08-22 04:37:00 Velvet Diaz [facility] AUTOMATED DIFFERENTIAL 2024-08-22 04:37:00 Janet Diaz [facility] Cardiac event monitor 2024-08-22 00:00:00 [facility] POC GLUCOSE UNSOLICITED RESULTS 2024-08-21 12:13:00 Sharyn Gamble [facility] POC GLUCOSE UNSOLICITED RESULTS 2024-08-21 08:19:00 Sharyn Gamble [facility] BASIC METABOLIC PANEL 2024-08-21 00:18:00 JanethTituss shade Sanchezen [facility] MAGNESIUM LEVEL 2024-08-21 00:18:00 mEilyVelvet Memo [facility] PHOSPHORUS LEVEL 2024-08-21 00:18:00 Emily Velvet [facility] orial [facility] COMPLETE BLOOD COUNT W/DIFF AND PLATELET 2024-08-21 00:18:00 Emily Velvet [facility] COMPLETE BLOOD COUNT 2024-08-21 00:18:00 Emily Velvet [facility] AUTOMATED DIFFERENTIAL 2024-08-21 00:18:00 Janet Diaz al [facility] POC GLUCOSE UNSOLICITED RESULTS 2024-08-20 21:13:00 Tiffanie Naranjo Sharyn [facility] POC GLUCOSE UNSOLICITED RESULTS 2024-08-20 17:26:00 Tiffanie Naranjo Sharyn [facility] POC GLUCOSE UNSOLICITED RESULTS 2024-08-20 12:00:00 Sharyn Gamble [facility] POC GLUCOSE UNSOLICITED RESULTS 2024-08-20 08:07:00 Sharyn Gamble [facility] COMPREHENSIVE METABOLIC PANEL 2024-08-20 04:21:00 Emily Velvet [facility] PLASMA HEMOGLOBIN 2024-08-20 04:21:[address] [facility] LACT[facility] DEHYDROGENASE 2024-08-20 04:21:00 Nuria Diaz [facility] MAGNESIUM LEVEL 2024-08-20 04:21:00 Emily Velvet Villao rial [facility] PHOSPHORUS LEVEL 2024-08-20 04:21:00 Emily Velvet [facility] orial [facility] COMPLETE BLOOD COUNT W/DIFF AND PLATELET 2024-08-20 04:21:00 Emily Velvet [facility] COMPLETE BLOOD COUNT 2024-08-20 04:21:00 Emily [facility] AUTOMATED DIFFERENTIAL 2024-08-20 04:21:00 Emily Cryst al [facility] XR CHEST 1 VIEW 2024-08-20 03:42:00 You Steven [facility] POC GLUCOSE UNSOLICITED RESULTS 2024-08-19 20:43:00 Sharyn Gamble Marian [facility] POC GLUCOSE UNSOLICITED RESULTS 2024-08-19 18:21:00 Sharyn Gamble Marian [facility] TRANSTHORACIC ECHO (TTE) COMPLETE W/ CONTRAST 2024-08-19 13:23:00 Steve Najera [facility] POC GLUCOSE UNSOLICITED RESULTS 2024-08-19 12:43:00 Sharyn Gamble [facility] XR CHEST 1 VIEW 2024-08-19 04:10:22 You Steven [facility] COMPREHENSIVE METABOLIC PANEL 2024-08-19 01:35:00 Velvet Diaz [facility] PLASMA HEMOGLOBIN 2024-08-19 01:35:00 Velvet Diaz [facility] LACTATE DEHYDROGENASE 2024-08-19 01:35:00 Nuria Diaz l [facility] MAGNESIUM LEVEL 2024-08-19 01:35:00 Velvet Diaz rial [facility] PHOSPHORUS LEVEL 2024-08-19 01:35:00 [facility] COMPLETE BLOOD COUNT W/DIFF AND PLATELET 2024-08-19 01:35:00 Velvet Diaz [facility] COMPLETE BLOOD COUNT 2024-08-19 01:35:00 Velvet Diaz [facility] AUTOMATED DIFFERENTIAL 2024-08-19 01:35:00 Janet Diaz [facility] POC GLUCOSE UNSOLICITED RESULTS 2024-08-18 20:33:00 Patarroyo Sharyn Naranjo Marian [facility] POC GLUCOSE UNSOLICITED RESULTS 2024-08-18 17:57:00 Patarroyo NaranjoSharyn rodríguez Marian [facility] POC GLUCOSE UNSOLICITED RESULTS 2024-08-18 12:18:00 Patarroyo Sharyn Naranjo Marian [facility] POC GLUCOSE UNSOLICITED RESULTS 2024-08-18 08:42:00 PatarroySharyn Culver Marian [facility] COMPREHENSIVE METABOLIC PANEL 2024-08-18 06:23:00 Velvet Diaz [facility] PLASMA HEMOGLOBIN 2024-08-18 06:23:00 [facility] LACT[facility] DEHYDROGENASE 2024-08-18 06:23:00 EmiylJaneta l [facility] MAGNESIUM LEVEL 2024-08-18 06:23:00 Velvet Diaz Memo rial [facility] PHOSPHORUS LEVEL 2024-08-18 06:23:00 EmilyVelvet [facility] COMPLETE BLOOD COUNT W/DIFF AND PLATELET 2024-08-18 06:23:00 Emily Velvet [facility] PTT 2024-08-18 06:23:00 Gordon Velez [facility] COMPLETE BLOOD COUNT 2024-08-18 06:23:00 EmilyVelvet [facility] AUTOMATED DIFFERENTIAL 2024-08-18 06:23:00 Janet Diaz al [facility] XR CHEST 1 VIEW 2024-08-18 04:04:49 You Steven [facility] POC GLUCOSE UNSOLICITED RESULTS 2024-08-17 20:08:00 [facility] P[facility] GLUCOSE UNSOLICITED RESULTS 2024-08-17 17:17:00 Sharyn Gamble Marian [facility] TRANSESOPHAGEAL ECHO (MARQUES) W/ STRAIN ANES 2024-08-17 15:00:[address] [facility] POC GLUCOSE UNSOLICITED RESULTS 2024-08-17 12:53:00 Sh[facility] POC GLUCOSE UNSOLICITED RESULTS 2024-08-17 08:30:00 Sahryn Gamble [facility] XR CHEST 1 VIEW 2024-08-17 05:36:00 You Steven [facility] COMPREHENSIVE METABOLIC PANEL 2024-08-17 03:32:00 Emily Velvet [facility] PLASMA HEMOGLOBIN 2024-08-17 03:32:00 EmilyVelvet [facility] LACTATE DEHYDROGENASE 2024-08-17 03:32:00 Emily Nuria l [facility] MAGNESIUM LEVEL 2024-08-17 03:32:00 EmilyVelvet Memo rial [facility] PHOSPHORUS LEVEL 2024-08-17 03:32:00 Emily [facility] COMPLETE BLOOD COUNT W/DIFF AND PLATELET 2024-08-17 03:32:00 Velvet Diaz [facility] PTT 2024-08-17 03:32:00 Rosie Gordon [facility] DIC SCREEN 2024-08-17 03:32:00 Velvet Diaz [facility] COMPLETE BLOOD COUNT 2024-08-17 03:32:00 Velvet Diaz [facility] AUTOMATED DIFFERENTIAL 2024-08-17 03:32:00 Janet Diaz al [facility] POC GLUCOSE UNSOLICITED RESULTS 2024-08-16 20:58:00 Sharyn Gamble Marian [facility] POC GLUCOSE UNSOLICITED RESULTS 2024-08-16 18:33:00 Sharyn Gabmle Marian [facility] PREPARE RBC 2024-08-16 14:52:11 Gordon Velez [facility] TRANSFUSE RED BLOOD CELLS 2024-08-16 14:47:00 Alexsander Velez [facility] POC GLUCOSE UNSOLICITED RESULTS 2024-08-16 12:18:00 John Bruno [facility] POC GLUCOSE UNSOLICITED RESULTS 2024-08-16 08:37:00 Nasclencho John [facility] XR CHEST 1 VIEW 2024-08-16 05:43:00 You Steven [facility] POC VENOUS BLOOD GAS AND COMPREHENSIVE PANEL UNSOLICITED RESULTS 2024-08-16 04:00:00 NascCarmelo musao [facility] COMPLETE BLOOD COUNT W/DIFF AND PLATELET 2024-08-16 03:57:00 Velvet Diaz [facility] COMPLETE BLOOD COUNT 2024-08-16 03:57:00 Velvet Diaz [facility] AUTOMATED DIFFERENTIAL 2024-08-16 03:57:00 Janet Diaz al [facility] COMPREHENSIVE METABOLIC PANEL 2024-08-16 00:48:00 Velvet Diaz [facility] PLASMA HEMOGLOBIN 2024-08-16 00:48:00 Velvet Diaz morial [facility] LACTATE DEHYDROGENASE 2024-08-16 00:48:00 Janet Diaza l [facility] MAGNESIUM LEVEL 2024-08-16 00:48:00 Velvet Diaz rial [facility] PHOSPHORUS LEVEL 2024-08-16 00:48:00 Velvet Diaz Mem [facility] TYPE AND SCREEN 2024-08-16 00:48:00 You Steven [facility] DIC SCREEN 2024-08-16 00:48:00 Velvet Diaz [facility] COMPLETE BLOOD COUNT (NO DIFF) 2024-08-15 22:13:00 You Steven [facility] POC ARTERIAL BLOOD GAS AND COMPREHENSIVE PANEL UNSOLICITED RESULTS 2024-08-15 21:54:00 [facility] POC GLUCOSE UNSOLICITED RESULTS 2024-08-15 17:21:00 Nascimbene, [facility] POC ARTERIAL BLOOD GAS AND COMPREHENSIVE PANEL UNSOLICITED RESULTS 2024-08-15 16:25:00 Kiana [facility] XR CHEST 1 VIEW 2024-08-15 12:37:21 Lo Fields [facility] POC ARTERIAL BLOOD GAS AND COMPREHENSIVE PANEL UNSOLICITED RESULTS 2024-08-15 12:36:00 [facility] POC VENOUS BLOOD GAS AND COMPREHENSIVE PANEL UNSOLICITED RESULTS 2024-08-15 09:57:00 Nascimbene, [facility] POC ARTERIAL BLOOD GAS AND COMPREHENSIVE PANEL UNSOLICITED RESULTS 2024-08-15 09:48:00 Kiana [facility] PREPARE RBC 2024-08-15 09:47:08 Vick Medina [facility] PREPARE FRESH FROZEN PLASMA 2024-08-15 09:47:07 Lakesha Medina [facility] BASIC METABOLIC PANEL 2024-08-15 09:26:00 Orestes Agrawal [facility] MAGNESIUM LEVEL 2024-08-15 09:26:00 Maxi Agrawal am [facility] COMPLETE BLOOD COUNT W/DIFF AND PLATELET 2024-08-15 09:26:00 Orestes Agrawal [facility] DIC SCREEN 2024-08-15 09:26:00 Maxi Agrawal am [facility] CALCIUM LEVEL IONIZED WHOLE BLOOD 2024-08-15 09:26:00 Nghia, Orestes Bowers [facility] COMPLETE BLOOD COUNT 2024-08-15 09:26:00 NghiaOrestes [facility] AUTOMATED DIFFERENTIAL 2024-08-15 09:26:00 Fabiola hartmanOrestes [facility] INSERTION, VENTRICULAR ASSIST DEVICE, PERCUTANEOUS 2024-08-15 07:48:00 Jacques Mejia [facility] XR CHEST 1 VIEW 2024-08-15 06:01:50 Bronwyn Kaiser [facility] COMPREHENSIVE METABOLIC PANEL 2024-08-15 03:04:00 Emily Velvet [facility] PLASMA HEMOGLOBIN 2024-08-15 03:04:[address] [facility] LACTATE DEHYDROGENASE 2024-08-15 03:04:00 Janet Diaza l [facility] MAGNESIUM LEVEL 2024-08-15 03:04:00 Emily Velvet Villao rial [facility] PHOSPHORUS LEVEL 2024-08-15 03:04:00 Velvet Diaz [facility] COMPLETE BLOOD COUNT W/DIFF AND PLATELET 2024-08-15 03:04:00 Emily Velvet [facility] DIC SCREEN 2024-08-15 03:04:00 Velvet Diaz Daisyoria l [facility] COMPLETE BLOOD COUNT 2024-08-15 03:04:00 Emily Velvet [facility] AUTOMATED DIFFERENTIAL 2024-08-15 03:04:00 Janet Diaz al [facility] POC ARTERIAL BLOOD GAS AND COMPREHENSIVE PANEL UNSOLICITED RESULTS 2024-08-14 19:59:00 Nascimbsangita, John [facility] COMPLETE BLOOD COUNT W/DIFF AND PLATELET 2024-08-14 19:54:00 Thomas, Prateek [facility] PTT 2024-08-14 19:54:00 TinEver no [facility] COMPLETE BLOOD COUNT 2024-08-14 19:54:00 Thomas, Prateek [facility] AUTOMATED DIFFERENTIAL 2024-08-14 19:54:00 Thomas, Cari d [facility] POC GLUCOSE UNSOLICITED RESULTS 2024-08-14 18:06:00 Nascimbene, John [facility] BASIC METABOLIC PANEL 2024-08-14 18:04:00 Anastacio, Sydn [facility] PT AND PTT 2024-08-14 18:04:00 Anastacio [facility] ECG 12-LEAD 2024-08-14 18:01:54 Anastacio [facility] COMPLETE BLOOD COUNT W/DIFF AND PLATELET 2024-08-14 14:35:00 Thomas, Prateek [facility] COMPLETE BLOOD COUNT 2024-08-14 14:35:00 Thomas, [facility] AUTOMATED DIFFERENTIAL 2024-08-14 14:35:00 Thomas, Cari d [facility] POC GLUCOSE UNSOLICITED RESULTS 2024-08-14 12:14:00 Nascimbene, John [facility] BASIC METABOLIC PANEL 2024-08-14 10:40:00 Cayden, Quirino lima [facility] MAGNESIUM LEVEL 2024-08-14 10:40:00 Cayden, Quirino [facility] PHOSPH[facility]US L[facility] 2024-08-14 10:40:00 Cayden, Quirino Ortiz [facility] POC GLUCOSE UNSOLICITED RESULTS 2024-08-14 08:16:00 Nascimbene, John [facility] COMPLETE BLOOD COUNT W/DIFF AND PLATELET 2024-08-14 08:12:00 Thomas, Prateek [facility] COMPLETE BLOOD COUNT 2024-08-14 08:12:00 Thomas, [facility] AUTOMATED DIFFERENTIAL 2024-08-14 08:12:00 Thomas, Cari langley [facility] XR CHEST 1 VIEW 2024-08-14 06:19:07 Bronwyn Kaiser Mem [facility] POC VENOUS BLOOD GAS AND COMPREHENSIVE PANEL UNSOLICITED RESULTS 2024-08-14 04:50:00 Nasclencho, John [facility] DIC SCREEN 2024-08-14 02:01:00 Bronwyn Kaiser [facility] COMPREHENSIVE METABOLIC PANEL 2024-08-14 02:00:00 Haylee Meneses [facility] MAGNESIUM LEVEL 2024-08-14 02:00:00 Haylee Meneses [facility] PHOSPHORUS LEVEL 2024-08-14 02:00:00 Haylee Meneses [facility] COMPLETE BLOOD COUNT W/DIFF AND PLATELET 2024-08-14 02:00:00 Thomas, Prateek [facility] COMPLETE BLOOD COUNT 2024-08-14 02:00:00 Thomas, Prateek [facility] AUTOMATED DIFFERENTIAL 2024-08-14 02:00:00 Thomas, Cari langley [facility] Prepare RBC: 1 Units 2024-08-14 00:00:00 [facility] Prepare platelet dose: 1 doses Transfusion indications: Hold for surgery 2024-08-14 00:00:00 [facility] Prepare Plasma: 1 Units Transfusion indications: Hold for surgery 2024-08-14 00:00:00 [facility] BASIC METABOLIC PANEL 2024-08-13 18:48:00 Orestes Agrawal [facility] Epic MAGNESIUM LEVEL 2024-08-13 18:48:00 Maxi Agrawal am Elissa [facility] Epic PHOSPHORUS LEVEL 2024-08-13 18:48[facility] W/DIFF AND PLATELET 2024-08-13 18:48:00 Thomas, Prateek [facility] COMPLETE BLOOD COUNT 2024-08-13 18:48:00 Thomas, Prateek [facility] AUTOMATED DIFFERENTIAL 2024-08-13 18:48:00 Thomas, Cari langley [facility] POC GLUCOSE UNSOLICITED RESULTS 2024-08-13 17:40:00 John Bruno [facility] BASIC METABOLIC PANEL 2024-08-13 12:40:00 Cayden, Quirino lima [facility] Epic MAGNESIUM LEVEL 2024-08-13 12:40:00 Cayden, [facility] 2024-08-13 12:40:00 Cayden, Quirino Ortiz Ct [facility] [place] Epic COMPLETE BLOOD COUNT W/DIFF AND PLATELET 2024-08-13 12:40:00 Thomas, Prateek [facility] COMPLETE BLOOD COUNT 2024-08-13 12:40:00 Thomas, Prateek [facility] Epic AUTOMATED DIFFERENTIAL 2024-08-13 12:40:00 Thomas, Cari langley [facility] POC GLUCOSE UNSOLICITED RESULTS 2024-08-13 12:30:00 Nascimbsangita, John [facility] POC GLUCOSE UNSOLICITED RESULTS 2024-08-13 07:20:00 Nascimbene, John [facility] COMPLETE BLOOD COUNT W/DIFF AND PLATELET 2024-08-13 07:17:00 Thomas, Prateek [facility] COMPLETE BLOOD COUNT 2024-08-13 07:17:00 Thomas, Prateek [facility] AUTOMATED DIFFERENTIAL 2024-08-13 07:17:00 Thomas, Cari langley [facility] XR CHEST 1 VIEW 2024-08-13 05:44:00 Bronwyn Kaiser [facility] POC VENOUS BLOOD GAS AND COMPREHENSIVE PANEL UNSOLICITED RESULTS 2024-08-13 04:23:00 Carmelo Brunoo [facility] COMPREHENSIVE METABOLIC PANEL 2024-08-13 01:12:00 Haylee Meneses [facility] PLASMA HEMOGLOBIN 2024-08-13 01:12:00 [facility] DEHY[facility]OGENASE 2024-08-13 01:12:00 Nuria Diaz [facility] MAGNESIUM LEVEL 2024-08-13 01:12:00 Haylee Meneses [facility] PHOSPHORUS LEVEL 2024-08-13 01:12:00 Haylee Meneses [facility] COMPLETE BLOOD COUNT W/DIFF AND PLATELET 2024-08-13 01:12:00 Thomas, Prateek [facility] DIC SCREEN 2024-08-13 01:12:00 Michael Jeffries [facility] COMPLETE BLOOD COUNT 2024-08-13 01:12:00 Thomas, Prateek [facility] AUTOMATED DIFFERENTIAL 2024-08-13 01:12:00 Thomas, Cari d [facility] POC GLUCOSE UNSOLICITED RESULTS 2024-08-12 19:16:00 Nascimbene, John [facility] COMPLETE BLOOD COUNT W/DIFF AND PLATELET 2024-08-12 19:14:00 Thomas, Prateek [facility] COMPLETE BLOOD COUNT 2024-08-12 19:14:00 Thomas, Prateek [facility] AUTOMATED DIFFERENTIAL 2024-08-12 19:14:00 Thomas, Cari d [facility] POC GLUCOSE UNSOLICITED RESULTS 2024-08-12 17:43:00 John Bruno [facility] HC MOD SED SAME PHYS/QHP INITIAL 15 MINS 5/> YRS 2024-08-12 17:24:22 Dino Domínguez [facility] HC MOD SED SAME PHYS/QHP EACH ADDL 15 MINS 2024-08-12 17:24:22 Dino Domínguez [facility] POC VENOUS BLOOD GAS AND COMPREHENSIVE PANEL UNSOLICITED RESULTS 2024-08-12 16:26:00 Nasclencho John [facility] POC GLUCOSE UNSOLICITED RESULTS 2024-08-12 12:57:00 Nasclencho John [facility] COMPLETE BLOOD COUNT W/DIFF AND PLATELET 2024-08-12 12:54:00 Thomas, Prateek [facility] COMPLETE BLOOD COUNT 2024-08-12 12:54:00 Thomas, Prateek [facility] AUTOMATED DIFFERENTIAL 2024-08-12 12:54:00 ThomasCari [facility] EGD 2024-08-12 11:43:00 [facility] GLUCOSE UNSOLICITED RESULTS 2024-08-12 08:44:00 Nascimbene, John [facility] COMPLETE BLOOD COUNT W/DIFF AND PLATELET 2024-08-12 08:42:00 Thomas, Prateek [facility] COMPLETE BLOOD COUNT 2024-08-12 08:42:00 Thomas, Prateek [facility] AUTOMATED DIFFERENTIAL 2024-08-12 08:42:00 Thomas, Cari langley [facility] XR CHEST 1 VIEW 2024-08-12 05:20:00 Bronwyn Kaiser [facility] POC GLUCOSE UNSOLICITED RESULTS 2024-08-12 03:59:00 Nasclencho John [facility] TYPE AND SCREEN 2024-08-12 03:38:00 [facility] COMPREHENSIVE METABOLIC PANEL 2024-08-12 03:36:00 Haylee Meneses [facility] PLASMA HEMOGLOBIN 2024-08-12 03:36:00 Velvet Diaz [facility] LACTATE DEHYDROGENASE 2024-08-12 03:36:00 Emily Nuria l [facility] MAGNESIUM LEVEL 2024-08-12 03:36:00 Haylee Menesesanne [facility] PHOSPHORUS LEVEL 2024-08-12 03:36:00 Haylee Meneses [facility] COMPLETE BLOOD COUNT W/DIFF AND PLATELET 2024-08-12 03:36:00 Thomas, Prateek [facility] DIC SCREEN 2024-08-12 03:36:00 Michael Jeffries al [facility] COMPLETE BLOOD COUNT 2024-08-12 03:36:00 Thomas, Prateek [facility] AUTOMATED DIFFERENTIAL 2024-08-12 03:36:00 Thomas, Cari langley [facility] POC ARTERIAL BLOOD GAS AND COMPREHENSIVE PANEL UNSOLICITED RESULTS 2024-08-11 21:26:00 John Bruno [facility] COMPLETE BLOOD COUNT W/DIFF AND PLATELET 2024-08-11 21:21:00 Thomas, Prateek [facility] COMPLETE BLOOD COUNT 2024-08-11 21:21:00 Thomas, Prateek [facility] AUTOMATED DIFFERENTIAL 2024-08-11 21:21:00 Thomas, Cari langley [facility] POC ARTERIAL BLOOD GAS AND COMPREHENSIVE PANEL UNSOLICITED RESULTS 2024-08-11 17:51:00 John Bruno [facility] TRANSTHORACIC ECHO (TTE) COMPLETE 2024-08-11 15:50:00 Gordon Velez [facility] COMPLETE BLOOD COUNT W/DIFF AND PLATELET 2024-08-11 14:53:00 Thomas, Prateek [facility] COMPLETE BLOOD COUNT 2024-08-11 14:53:00 Thomas, Prateek [facility] AUTOMATED DIFFERENTIAL 2024-08-11 14:53:00 Thomas, Cari langley [facility] XR CHEST 1 VIEW 2024-08-11 11:52:00 Gordon Velez [facility] POC ARTERIAL BLOOD GAS AND COMPREHENSIVE PANEL UNSOLICITED RESULTS 2024-08-11 11:31:00 John Bruno [facility] PREPARE RBC 2024-08-11 10:50:18 Gordon Velez [facility] TRANSFUSE RED BLOOD CELLS 2024-08-11 10:48:00 Alexsander Velez [facility] PREPARE RBC 2024-08-11 08:03:42 Gordon Velez [facility] TRANSFUSE RED BLOOD CELLS 2024-08-11 08:03:00 Alexsander Velez [facility] COMPLETE BLOOD COUNT (NO DIFF) 2024-08-11 06:27:00 Bronwyn Kaiser [facility] XR CHEST 1 VIEW 2024-08-11 04:53:00 Bronwyn Kaiser Mem [facility] POC VENOUS BLOOD GAS AND COMPREHENSIVE PANEL UNSOLICITED RESULTS 2024-08-11 04:21:00 NascJohn musa [facility] COMPREHENSIVE METABOLIC PANEL 2024-08-11 04:10:00 Haylee Meneses [facility] VANCOMYCIN LEVEL 2024-08-11 04:10:00 Lanny Naranjo [facility] PLASMA HEMOGLOBIN 2024-08-11 04:10:00 [facility] DEHYDROGENASE 2024-08-11 04:10:00 Nuria Diaz [facility] MAGNESIUM LEVEL 2024-08-11 04:10:00 Haylee Meneses nnanne [facility] PHOSPHORUS LEVEL 2024-08-11 04:10:00 Haylee Meneses [facility] COMPLETE BLOOD COUNT W/DIFF AND PLATELET 2024-08-11 04:10:00 Haylee Meneses [facility] DIC SCREEN 2024-08-11 04:10:00 Velvet Diaz l [facility] COMPLETE BLOOD COUNT 2024-08-11 04:10:00 Viky Meneses [facility] AUTOMATED DIFFERENTIAL 2024-08-11 04:10:00 Jose Meneses [facility] POC GLUCOSE UNSOLICITED RESULTS 2024-08-10 21:35:00 John Bruno [facility] DIC SCREEN 2024-08-10 21:31:00 Bronwyn Kaiser Memori al [facility] POC VENOUS BLOOD GAS AND COMPREHENSIVE PANEL UNSOLICITED RESULTS 2024-08-10 18:51:00 John Bruno [facility] XR CHEST 1 VIEW 2024-08-10 18:28:04 Rosie, Gordon [facility] BASIC METABOLIC PANEL 2024-08-10 18:22:00 Rosie, Gordon [facility] MAGNESIUM LEVEL 2024-08-10 18:22:00 Rosie, Gordon [facility] PHOSPHORUS LEVEL 2024-08-10 18:22:00 Rosie, Gordon [facility] COMPLETE BLOOD COUNT W/DIFF AND PLATELET 2024-08-10 18:22:00 Rosie, [facility] COMPLETE BLOOD COUNT 2024-08-10 18:22:00 Rosie, [facility] AUTOMATED DIFFERENTIAL 2024-08-10 18:22:00 Rosie, Gordon [facility] PREPARE RBC 2024-08-10 18:04:00 Al Qaysi, Mu stafa Dheyauldeen [facility] PREPARE RBC 2024-08-10 18:03:59 Al Qaysi, [facility] POC ARTERIAL BLOOD GAS AND COMPREHENSIVE PANEL UNSOLICITED RESULTS 2024-08-10 17:59:00 Kiana [facility] MARQUES INTRA OP DURING STRUCTURAL HEART 2024-08-10 17:20:00 Eileen Lee [facility] POC ACTIVATED CLOTTING TIME UNSOLICITED RESULTS 2024-08-10 17:07:00 Kiana [facility] POC GLUCOSE UNSOLICITED RESULTS 2024-08-10 12:46:00 [facility] TRANSESOPHAGEAL ECHO (MARQUES) W/ DOPPLER AND COLOR 2024-08-10 11:54:49 Rosie Gordon [facility] TYPE AND SCREEN 2024-08-10 11:41:00 Eileen Lee [facility] TRANSTHORACIC ECHO (TTE) LIMITED W/ DOPPLER AND COLOR 2024-08-10 09:35:00 Haylee Meneses [facility] XR CHEST 1 VIEW 2024-08-10 05:52:31 Velvet Diaz [facility] POC VENOUS BLOOD GAS AND COMPREHENSIVE PANEL UNSOLICITED RESULTS 2024-08-10 03:23:00 [facility] COMPREHENSIVE METABOLIC PANEL 2024-08-10 03:05:00 Haylee Meneses [facility] PLASMA HEMOGLOBIN 2024-08-10 03:05:00 Vel[facility] LACTATE DEHYDROGENASE 2024-08-10 03:05:00 Nuria Diaz [facility] MAGNESIUM LEVEL 2024-08-10 03:05:00 Haylee Meneses [facility] PHOSPHORUS LEVEL 2024-08-10 03:05:00 Haylee Meneses [facility] COMPLETE BLOOD COUNT W/DIFF AND PLATELET 2024-08-10 03:05:00 Haylee Meneses [facility] DIC SCREEN 2024-08-10 03:05:00 Velvet Diaz [facility] COMPLETE BLOOD COUNT 2024-08-10 03:05:00 Viky Meneses [facility] AUTOMATED DIFFERENTIAL 2024-08-10 03:05:00 Jose Meneses [facility] POC GLUCOSE UNSOLICITED RESULTS 2024-08-09 21:16:00 John Bruno [facility] PTT 2024-08-09 19:27:00 Haylee Meneses [facility] POC ARTERIAL BLOOD GAS AND COMPREHENSIVE PANEL UNSOLICITED RESULTS 2024-08-09 17:19:00 John Bruno [facility] VITAMIN B12 LEVEL 2024-08-09 13:45:00 IbehMichael [facility] FOLATE LEVEL 2024-08-09 13:45:00 Ibeh, Michael Rodriguez [facility] DIC SCREEN 2024-08-09 13:45:00 Ibeh, Michael Rodriguez [facility] IRON + TRANSFERRIN + TIBC 2024-08-09 13:45:00 Ibeh, Anjali díaz [facility] POC ARTERIAL BLOOD GAS AND COMPREHENSIVE PANEL UNSOLICITED RESULTS 2024-08-09 12:34:00 John Bruno [facility] MRSA BY PCR 2024-08-09 11:21:00 Prateek Guzman [facility] INSTRUMENTS SALES REPRESENTATIVE FEES PROCEDURE 2024-08-09 11:15:00 Craig Nath [facility] PROCALCITONIN LEVEL 2024-08-09 10:12:00 ThomasPrateek best [facility] POC ARTERIAL BLOOD GAS AND BASIC PANEL UNSOLICITED RESULTS 2024-08-09 09:09:00 John Bruno [facility] XR CHEST 1 VIEW 2024-08-09 05:39:51 Velvet Diaz rial [facility] POC VENOUS BLOOD GAS AND COMPREHENSIVE PANEL UNSOLICITED RESULTS 2024-08-09 04:18:00 John Bruno [facility] DIC SCREEN 2024-08-09 04:05:00 Velvet Diaz [facility] POC ARTERIAL BLOOD GAS AND COMPREHENSIVE PANEL UNSOLICITED RESULTS 2024-08-09 00:15:00 John Bruno [facility] COMPREHENSIVE METABOLIC PANEL 2024-08-09 00:08:00 Haylee Meneses [facility] PLASMA HEMOGLOBIN 2024-08-09 00:08:00 Velvet [facility] LACTATE DEHYDROGENASE 2024-08-09 00:08:00 Nuria Diaz [facility] MAGNESIUM LEVEL 2024-08-09 00:08:00 Haylee Meneses [facility] PHOSPHORUS LEVEL 2024-08-09 00:08:00 Haylee Meneses [facility] COMPLETE BLOOD COUNT W/DIFF AND PLATELET 2024-08-09 00:08:00 Haylee Meneses [facility] COMPLETE BLOOD COUNT 2024-08-09 00:08:00 Viky Meneses ndjose Donohue [facility] AUTOMATED DIFFERENTIAL 2024-08-09 00:08:00 Jose Meneses [facility] External Catheter 2024-08-09 00:00:00 Daisy oriselena [facility] PT AND PTT 2024-08-08 21:30:00 Velvet Diaz [facility] PREPARE RBC 2024-08-08 20:13:47 Gordon Velez [facility] TRANSFUSE RED BLOOD CELLS 2024-08-08 20:12:00 Alexsander Velez [facility] POC OTHER BLOOD GAS AND COMPREHENSIVE PANEL UNSOLICITED RESULTS 2024-08-08 18:14:00 John Bruno [facility] POC OTHER BLOOD GAS AND COMPREHENSIVE PANEL UNSOLICITED RESULTS 2024-08-08 12:44:00 KianaJohn [facility] COMPLETE BLOOD COUNT (NO DIFF) 2024-08-08 12:41:00 TintEver [facility] PREPARE RBC 2024-08-08 10:32:52 Tint [facility] TRANSFUSE RED BLOOD CELLS 2024-08-08 10:31:00 Tint, Hl aing [facility] MARQUES INTRA OP DURING STRUCTURAL HEART ANES 2024-08-08 08:56:02 Jose A Lima [facility] POC OTHER BLOOD GAS AND COMPREHENSIVE PANEL UNSOLICITED RESULTS 2024-08-08 08:06:00 [facility]cho [facility] POC ARTERIAL BLOOD GAS AND COMPREHENSIVE PANEL UNSOLICITED RESULTS 2024-08-08 06:17:00 John Bruno [facility] EXTUBATION 2024-08-08 06:00:44 Carl Lake [facility] XR CHEST 1 VIEW 2024-08-08 05:56:13 Velvet Diaz [facility] POC VENOUS BLOOD GAS AND COMPREHENSIVE PANEL UNSOLICITED RESULTS 2024-08-08 05:23:00 Kiana [facility] COMPREHENSIVE METABOLIC PANEL 2024-08-08 04:13:00 Haylee Meneses [facility] PLASMA HEMOGLOBIN 2024-08-08 04:13:00 [facility] LACT[facility] DEHYDROGENASE 2024-08-08 04:13:00 Nuria Diaz [facility] MAGNESIUM LEVEL 2024-08-08 04:13:00 Haylee Meneses [facility] PHOSPHORUS LEVEL 2024-08-08 04:13:00 Haylee Meneses [facility] COMPLETE BLOOD COUNT W/DIFF AND PLATELET 2024-08-08 04:13:00 Haylee Meneses [facility] DIC SCREEN 2024-08-08 04:13:00 Velvet Diaz [facility] COMPLETE BLOOD COUNT 2024-08-08 04:13:00 Viky Meneses [facility] AUTOMATED DIFFERENTIAL 2024-08-08 04:13:00 Jose Meneses [facility] POC ARTERIAL BLOOD GAS AND COMPREHENSIVE PANEL UNSOLICITED RESULTS 2024-08-08 00:09:00 Nasclencho, John [facility] Epic TYPE AND SCREEN 2024-08-07 22:56:00 Maxi Agrawal am [facility] VANCOMYCIN LEVEL 2024-08-07 22:54:00 Lanny Naranjo [facility] POC GLUCOSE UNSOLICITED RESULTS 2024-08-07 22:06:00 Nascimbene[facility] GLUCOSE UNSOLICITED RESULTS 2024-08-07 21:05:00 Nascimbene, [facility] COMPLETE BLOOD COUNT (NO DIFF) 2024-08-07 21:02:00 Tint, Ever [facility] POC GLUCOSE UNSOLICITED RESULTS 2024-08-07 20:31:00 NascCarmelo musao [facility] Epic PREPARE RBC 2024-08-07 19:10:58 Maxi Agrawal am Elissa [facility] TRANSFUSE RED BLOOD CELLS 2024-08-07 19:09:00 Na Orestes garcía [facility] TRANSTHORACIC ECHO (TTE) COMPLETE W/ CONTRAST 2024-08-07 18:34:00 Gordon Velez [facility] POC GLUCOSE UNSOLICITED RESULTS 2024-08-07 18:03:00 John Bruno [facility] Epic DIC SCREEN 2024-08-07 18:01:00 MikietEver [facility] PLAVIX EFFECT PLATELET 2024-08-07 17:59:00 Janet Diaz [facility] TRANSFUSE RED BLOOD CELLS 2024-08-07 17:36:00 Na Orestes garcíahadri [facility] COMPLETE BLOOD COUNT (NO DIFF) 2024-08-07 16:56:00 Tint, Ever [facility] POC OTHER BLOOD GAS AND COMPREHENSIVE PANEL UNSOLICITED RESULTS 2024-08-07 16:44:00 NascCarmelo mus[facility] ABDOMEN 1 VIEW 2024-08-07 15:20:00 Lanny Naranjo [facility] US LOWER EXTREMITY ARTERIAL DOPPLER BILATERAL 2024-08-07 14:10:00 Velvet Diaz [facility] POC GLUCOSE UNSOLICITED RESULTS 2024-08-07 13:24:00 NascimbeneJohn [facility] BLOOD CULTURE 2024-08-07 12:54:00 Lanny Naranjo [facility] RESPIRATORY CULTURE W/GRAM STAIN 2024-08-07 12:54:00 Lanny Naranjo [facility] POC GLUCOSE UNSOLICITED RESULTS 2024-08-07 12:29:00 [facility] 2024-08-07 12:25:00 Ever Campbell [facility] BLOOD CULTURE 2024-08-07 11:23:00 Lanny Naranjo [facility] PREPARE RBC 2024-08-07 11:14:42 Jose A Lima [facility] POC GLUCOSE UNSOLICITED RESULTS 2024-08-07 10:15:00 [facility]OC GLUCOSE UNSOLICITED RESULTS 2024-08-07 08:36:00 Kiana [facility] POC ARTERIAL BLOOD GAS AND COMPREHENSIVE PANEL UNSOLICITED RESULTS 2024-08-07 06:11:00 [facility] 2024-08-07 06:05:00 Velvet Diaz [facility] XR CHEST 1 VIEW 2024-08-07 05:13:00 Velvet Diaz rial [facility] POC GLUCOSE UNSOLICITED RESULTS 2024-08-07 05:04:00 Kiana [facility] POC ARTERIAL BLOOD GAS AND COMPREHENSIVE PANEL UNSOLICITED RESULTS 2024-08-07 04:17:00 Kiana [facility] COMPREHENSIVE METABOLIC PANEL 2024-08-07 04:11:00 Haylee Meneses [facility] PLASMA HEMOGLOBIN 2024-08-07 04:11:00 [facility] DEHYDROGENASE 2024-08-07 04:11:00 Nuria Diaz [facility] MAGNESIUM LEVEL 2024-08-07 04:11:00 Haylee Meneses [facility] PHOSPHORUS LEVEL 2024-08-07 04:11:00 Haylee Meneses [facility] COMPLETE BLOOD COUNT W/DIFF AND PLATELET 2024-08-07 04:11:00 Velvet Diaz [facility] COMPLETE BLOOD COUNT 2024-08-07 04:11:00 Emily Velvet [facility] AUTOMATED DIFFERENTIAL 2024-08-07 04:11:00 Janet Diaz al [facility] POC GLUCOSE UNSOLICITED RESULTS 2024-08-07 03:12:00 Nascimbsangita, John [facility] POC VENOUS BLOOD GAS AND COMPREHENSIVE PANEL UNSOLICITED RESULTS 2024-08-07 02:06:00 Nascimbsangita, John [facility] POC GLUCOSE UNSOLICITED RESULTS 2024-08-07 01:17:00 Nascimbene, John [facility] Epic POC ARTERIAL BLOOD GAS AND COMPREHENSIVE PANEL UNSOLICITED RESULTS 2024-08-07 00:19:00 Nasclencho, John [facility] Epic DIC SCREEN 2024-08-07 00:11:00 Velvet Diaz [facility] XR ABDOMEN 1 VIEW 2024-08-06 22:51:27 Velvet Diaz morial [place] Epic XR CHEST 1 VIEW 2024-08-06 22:50:59 Velvet Diaz Memo rial [facility] COMPLETE BLOOD COUNT W/DIFF AND PLATELET 2024-08-06 22:09:00 Velvet Diaz [facility] AUTOMATED DIFFERENTIAL 2024-08-06 22:09:00 Janet Diaz al [facility] POC VENOUS BLOOD GAS AND COMPREHENSIVE PANEL UNSOLICITED RESULTS 2024-08-06 22:09:00 Kiana John [facility] COMPLETE BLOOD COUNT 2024-08-06 22:09:00 Velvet Diaz [facility] REFLEX MAN DIFF AND MORPH - DO NOT ORDER 2024-08-06 22:09:00 Velvet Diaz [facility] COMPREHENSIVE METABOLIC PANEL 2024-08-06 22:05:00 Haylee Meneses [facility] MAGNESIUM LEVEL 2024-08-06 22:05:00 Velvet Diaz Mark rial [facility] PHOSPHORUS LEVEL 2024-08-06 22:05:00 Velvet Diaz [facility] orial [facility] DIC SCREEN 2024-08-06 22:05:00 Velvet Diaz Viktoriya l [facility] POC ARTERIAL BLOOD GAS AND COMPREHENSIVE PANEL UNSOLICITED RESULTS 2024-08-06 22:05:00 Nasclencho, John [facility] POC ARTERIAL BLOOD GAS AND BASIC PANEL UNSOLICITED RESULTS 2024-08-06 21:09:00 NascCarmelo musao [facility] TRANSFUSE RED BLOOD CELLS 2024-08-06 20:47:00 Georges Lima lee [facility] [place] 1 HOUR INTRAOPERATIVE 2024-08-06 20:30:00 Cynthia Mejiahai [facility] POC ARTERIAL BLOOD GAS AND BASIC PANEL UNSOLICITED RESULTS 2024-08-06 20:28:00 Nascimbene, John [facility] POC ARTERIAL BLOOD GAS AND BASIC PANEL UNSOLICITED RESULTS 2024-08-06 19:03:00 Nascimbene John [facility] INSERTION, VENTRICULAR ASSIST DEVICE, PERCUTANEOUS 2024-08-06 18:22:00 Jacques Mejia [facility] LEFT HEART CATH 2024-08-06 17:58:10 [facility] POC ARTERIAL BLOOD GAS AND BASIC PANEL UNSOLICITED RESULTS 2024-08-06 17:49:00 Nascimbene, John [facility] POC ACTIVATED CLOTTING TIME UNSOLICITED RESULTS 2024-08-06 17:48:00 Nascimbene, John [facility] POC ARTERIAL BLOOD GAS AND BASIC PANEL UNSOLICITED RESULTS 2024-08-06 17:05:00 Nascimbene, John [facility] POC ACTIVATED CLOTTING TIME UNSOLICITED RESULTS 2024-08-06 17:03:00 Nascimbene, John [facility] POC ARTERIAL BLOOD GAS AND COMPREHENSIVE PANEL UNSOLICITED RESULTS 2024-08-06 16:50:00 Nascimbene, John [facility] POC ACTIVATED CLOTTING TIME UNSOLICITED RESULTS 2024-08-06 16:49:00 Nascimbene, John [facility] CORONAVIRUS (COVID-19) FRANK ICU/ISOLATION 2024-08-06 16:45:00 Ferdinand Siddiqui [facility] POC ACTIVATED CLOTTING TIME UNSOLICITED RESULTS 2024-08-06 16:01:00 Nascimbene, John [facility] POC ACTIVATED CLOTTING TIME UNSOLICITED RESULTS 2024-08-06 15:34:00 Nascimbene, John [facility] POC ACTIVATED CLOTTING TIME UNSOLICITED RESULTS 2024-08-06 15:23:00 Nascimbene, John [facility] ECG 12-LEAD 2024-08-06 11:31:56 Connor Brown [facility] PTT 2024-08-06 05:34:00 Eliceo Petty [facility] BASIC METABOLIC PANEL 2024-08-06 00:12:00 [facility] MAGNESIUM LEVEL 2024-08-06 00:12:00 [facility] PHOSPHORUS LEVEL 2024-08-06 00:12:00 Ynes Petty [facility] COMPLETE BLOOD COUNT W/DIFF AND PLATELET 2024-08-06 00:12:00 [facility] PTT 2024-08-06 00:12:00 Eliceo Petty [facility] CALCIUM LEVEL IONIZED WHOLE BLOOD 2024-08-06 00:12:00 [facility] COMPLETE BLOOD COUNT 2024-08-06 00:12:00 Darien Petty [facility] AUTOMATED DIFFERENTIAL 2024-08-06 00:12:00 Rob Petty [facility] REFLEX MORPHOLOGY - DO NOT ORDER 2024-08-06 00:12:00 [facility] Site care 2024-08-06 00:00:00 [facility] PTT 2024-08-05 17:45:00 Cruz Lugo ra [facility] POC GLUCOSE UNSOLICITED RESULTS 2024-08-05 11:48:00 John Bruno [facility] PTT 2024-08-05 08:17:00 Eliceo Petty [facility] POC GLUCOSE UNSOLICITED RESULTS 2024-08-05 07:37:00 John Bruno [facility] COMPREHENSIVE METABOLIC PANEL 2024-08-05 00:22:00 Haylee Meneses [facility] MAGNESIUM LEVEL 2024-08-05 00:22:00 [facility]o [facility] PHOSPHORUS LEVEL 2024-08-05 00:22:00 Ynes Petty [facility] COMPLETE BLOOD COUNT W/DIFF AND PLATELET 2024-08-05 00:22:00 [facility] PTT 2024-08-05 00:22:00 Eliceo Petty [facility] COMPLETE BLOOD COUNT 2024-08-05 00:22:00 Darien [facility] AUTOMATED DIFFERENTIAL 2024-08-05 00:22:00 [facility] REFLEX MORPHOLOGY - DO NOT ORDER 2024-08-05 00:22:00 Rob Petty [facility] Complete Blood Count w/Diff and Platelet 2024-08-05 00:00:00 [facility] PREPARE RBC 2024-08-04 18:12:49 Hugo Diaz [facility] TRANSFUSE RED BLOOD CELLS 2024-08-04 18:09:00 Anastasiya Diaz [facility] PTT 2024-08-04 17:25:00 John Bruno [facility] POC GLUCOSE UNSOLICITED RESULTS 2024-08-04 16:47:00 John Bruno [facility] PTT 2024-08-04 12:10:00 John Bruno [facility] POC GLUCOSE UNSOLICITED RESULTS 2024-08-04 11:45:00 Kiana [facility] US UPPER EXTREMITY VENOUS DOPPLER LEFT 2024-08-04 08:48:00 Jacobo Gaston [facility] POC GLUCOSE UNSOLICITED RESULTS 2024-08-04 07:51:00 John Bruno [facility] PTT 2024-08-04 06:03:00 Eliceo Petty [facility] COMPREHENSIVE METABOLIC PANEL 2024-08-04 02:31:00 Haylee Meneses [facility] MAGNESIUM LEVEL 2024-08-04 02:31:00 Eliceo Petty [facility] PHOSPHORUS LEVEL 2024-08-04 02:31:00 Ynes Petty [facility] TYPE AND SCREEN 2024-08-04 02:31:00 Eliceo Petty [facility] COMPLETE BLOOD COUNT W/DIFF AND PLATELET 2024-08-04 02:31:00 [facility]PLETE [facility]LO[facility] 2024-08-04 02:31:00 Darien Petty mandafanny [facility] AUTOMATED DIFFERENTIAL 2024-08-04 02:31:00 [facility]Rob [facility] REFLEX MORPHOLOGY - DO NOT ORDER 2024-08-04 02:31:00 NickySammyRob [facility] PTT 2024-08-03 21:56:00 Eliceo Petty [facility] POC GLUCOSE UNSOLICITED RESULTS 2024-08-03 16:47:00 [facility] POC GLUCOSE UNSOLICITED RESULTS 2024-08-03 11:54:00 Nascimbene, [facility] PTT 2024-08-03 10:20:00 Cruz Lugo ra [facility] POC GLUCOSE UNSOLICITED RESULTS 2024-08-03 07:16:00 Nascimbene, [facility] COMPREHENSIVE METABOLIC PANEL 2024-08-03 03:22:00 Nascimbene, [facility] MAGNESIUM LEVEL 2024-08-03 03:22:00 Nascimbene, [facility] PHOSPHORUS LEVEL 2024-08-03 03:22:00 Nascimbene, Carmelo o [facility] COMPLETE BLOOD COUNT W/DIFF AND PLATELET 2024-08-03 03:22:[address] [facility] CALCIUM LEVEL IONIZED WHOLE BLOOD 2024-08-03 03:22:[address] [facility] PT AND PTT 2024-08-03 03:22:[address] [facility] COMPLETE BLOOD COUNT 2024-08-03 03:22:[address] [facility] AUTOMATED DIFFERENTIAL 2024-08-03 03:22:00 Omid Ma [facility] REFLEX MORPHOLOGY - DO NOT ORDER 2024-08-03 03:22:00 Zoran Ma [facility] PTT 2024-08-02 21:47:00 Zoran Ma [facility] POC VENOUS BLOOD GAS AND COMPREHENSIVE PANEL UNSOLICITED RESULTS 2024-08-02 14:59:00 NascmaryJohn quesada [facility] PHOSPHORUS LEVEL 2024-08-02 14:46:00 NascmaryCarmelo quesada [facility] TROPONIN I HIGH SENSITIVITY (SINGLE ORDER) 2024-08-02 14:46:00 [facility]ita[facility] W/DIFF AND PLATELET 2024-08-02 14:45:00 [facility] COMPLETE BLOOD COUNT 2024-08-02 14:45:00 Nascimbene, [facility] 2024-08-02 14:45:00 Nascmaryene [facility] CALCIUM LEVEL IONIZED WHOLE BLOOD 2024-08-02 14:44:00 Nascmaryene, [facility] PT AND PTT 2024-08-02 14:44:00 Kiana John [facility] CT CERVICAL SPINE WO IV CONTRAST 2024-08-02 11:02:46 Lianet Douglas [facility] CT LUMBAR SPINE WO IV CONTRAST 2024-08-02 11:02:46 MisaelLianet almonte [facility] PT AND PTT 2024-08-02 08:21:00 NasclenchoJohn [facility] COMPREHENSIVE METABOLIC PANEL 2024-08-02 00:18:[address] [facility] MAGNESIUM LEVEL 2024-08-02 00:18:00 Zoran Ma [facility] PHOSPHORUS LEVEL 2024-08-02 00:18:00 Zoran Ma [facility] COMPLETE BLOOD COUNT W/DIFF AND PLATELET 2024-08-02 00:18:[address] [facility] CALCIUM LEVEL IONIZED WHOLE BLOOD 2024-08-02 00:18:[address] [facility] PT AND PTT 2024-08-02 00:18:[address] [facility] COMPLETE BLOOD COUNT 2024-08-02 00:18:[address] [facility] AUTOMATED DIFFERENTIAL 2024-08-02 00:18:00 Omid Ma [facility] Comprehensive Metabolic Panel 2024-08-02 00:00:00 [facility] Magnesium Level 2024-08-02 00:00:00 Bahman lai [facility] XR THORACIC SPINE 2 VIEWS 2024-08-01 23:57:40 Sij, Eth an David [facility] PTT 2024-08-01 18:23:00 Tim Cagle [facility] POC GLUCOSE UNSOLICITED RESULTS 2024-08-01 18:10:00 Nascimbene John [facility] PTT 2024-08-01 15:49:00 Tim Cagle [facility] POC GLUCOSE UNSOLICITED RESULTS 2024-08-01 11:51:00 Nascimbene John [facility] PTT 2024-08-01 10:29:00 Nascimbene, John [facility] US LOWER EXTREMITY VEIN MAP BILATERAL 2024-08-01 10:05:00 Mary Chaves [facility] POC GLUCOSE UNSOLICITED RESULTS 2024-08-01 09:28:00 Nascimbsangita John [facility] COMPREHENSIVE METABOLIC PANEL 2024-08-01 04:20:[address] [facility] MAGNESIUM LEVEL 2024-08-01 04:20:00 Zoran Ma [facility] PHOSPHORUS LEVEL 2024-08-01 04:20:00 Zoran Ma [facility] COMPLETE BLOOD COUNT W/DIFF AND PLATELET 2024-08-01 04:20:00 Zoran Ma [facility] CALCIUM LEVEL IONIZED WHOLE BLOOD 2024-08-01 04:20:[address] [facility] PT AND PTT 2024-08-01 04:20:[address] [facility] COMPLETE BLOOD COUNT 2024-08-01 04:20:[address] [facility] AUTOMATED DIFFERENTIAL 2024-08-01 04:20:[address] [facility] COMPREHENSIVE METABOLIC PANEL 2024-07-31 21:42:00 Anil, Zoran [facility] MAGNESIUM LEVEL 2024-07-31 21:42:00 Zoran Ma [facility] PHOSPHORUS LEVEL 2024-07-31 21:42:00 Zoran Ma S [facility] TYPE AND SCREEN 2024-07-31 21:42:00 Zoran Ma [facility] COMPLETE BLOOD COUNT W/DIFF AND PLATELET 2024-07-31 21:42:[address] [facility] CALCIUM LEVEL IONIZED WHOLE BLOOD 2024-07-31 21:42:[address] [facility] PT AND PTT 2024-07-31 21:42:[address] [facility] COMPLETE BLOOD COUNT 2024-07-31 21:42:[address] [facility] AUTOMATED DIFFERENTIAL 2024-07-31 21:42:[address] [facility] MRI THORACIC SPINE W AND WO IV CONTRAST 2024-07-31 17:50:00 Brandin Marks [facility] TRANSTHORACIC ECHO (TTE) COMPLETE W/ CONTRAST 2024-07-31 12:56:00 Haylee Meneses [facility] PT AND PTT 2024-07-31 11:29:00 Lan Avery [facility] US CAROTID ARTERY DOPPLER BILATERAL 2024-07-31 10:36:00 Mary Chaves [facility] CT CHEST WO IV CONTRAST 2024-07-31 09:54:02 Allen Chaves [facility] POC GLUCOSE UNSOLICITED RESULTS 2024-07-31 09:23:00 John Bruno [facility] HC BREATHING CAPACITY TEST - SPIROMETRY WITHOUT BRONCHODILATOR 2024-07-31 08:58:00 Mary Chaves [facility] US LOWER EXTREMITY ARTERIAL DOPPLER BILATERAL 2024-07-31 07:38:00 Haylee Meneses [facility] XR CHEST 1 VIEW 2024-07-31 04:14:59 Haylee Meneses [facility] POC GLUCOSE UNSOLICITED RESULTS 2024-07-31 03:32:00 oJhn Bruno [facility] COMPREHENSIVE METABOLIC PANEL 2024-07-31 03:24:00 Haylee Meneses [facility] HEMOGLOBIN A1C 2024-07-31 03:24:00 Haylee Meneses [facility] MAGNESIUM LEVEL 2024-07-31 03:24:00 Haylee Meneses [facility] PHOSPHORUS LEVEL 2024-07-31 03:24:00 Haylee Meneses [facility] TYPE AND SCREEN 2024-07-31 03:24:00 John Brnuo [facility] COMPLETE BLOOD COUNT W/DIFF AND PLATELET 2024-07-31 03:24:00 Haylee Meneses [facility] TROPONIN I HIGH SENSITIVITY (SINGLE ORDER) 2024-07-31 03:24:00 Haylee Meneses [facility] PT AND PTT 2024-07-31 03:24:00 Haylee Meneses [facility] COMPLETE BLOOD COUNT 2024-07-31 03:24:00 Viky Meneses [facility] AUTOMATED DIFFERENTIAL 2024-07-31 03:24:00 Jose Menesse [facility] ECG 12-LEAD 2024-07-31 03:00:00 Gautam Darden [facility] Magnesium Level 2024-07-31 00:00:00 Bahman lai [facility] Phosphorus Level 2024-07-31 00:00:00 Mark riaignacio [facility] Calcium Level Ionized Whole Blood 2024-07-31 00:00:00 [facility] Basic Metabolic Panel 2024-07-31 00:00:00 [facility] Thyroid panel 2024-07-31 00:00:00 Viktoriya pierre [facility] PTT 2024-07-30 23:12:00 Charis Cheema [facility] CORONAVIRUS (COVID-19) FRANK ICU/ISOLATION 2024-07-30 22:10:00 Spring Waite [facility] POC GLUCOSE UNSOLICITED RESULTS 2024-07-30 20:18:00 Spring Waite [facility] POC GLUCOSE UNSOLICITED RESULTS 2024-07-30 17:20:00 Spring Waite [facility] RIGHT HEART CATH 2024-07-30 12:45:38 LetyAndrew paged Cathy kirakeshavced [facility] POC ACTIVATED CLOTTING TIME UNSOLICITED RESULTS 2024-07-30 12:33:00 Ashlee Spring [facility] POC ARTERIAL CG4+ UNSOLICITED RESULTS 2024-07-30 12:19:00 Ashlee Spring [facility] TRANSESOPHAGEAL ECHO (MARQUES) W/ DOPPLER, COLOR AND CARDIOVERSION 2024-07-30 11:26:00 Leila Lozano [facility] POC GLUCOSE UNSOLICITED RESULTS 2024-07-30 08:20:00 Ashlee Spring [facility] POTASSIUM LEVEL 2024-07-30 06:55:00 Leila Lozano [facility] PTT 2024-07-30 06:55:00 Esteban Delarosa Mem [facility] POC GLUCOSE UNSOLICITED RESULTS 2024-07-30 05:00:00 Esteban Delarosa [facility] BASIC METABOLIC PANEL 2024-07-30 03:54:00 [facility] 2024-07-30 03:54:00 Charis Cheema Am akjose [facility] PHOSPHORUS LEVEL 2024-07-30 03:54:00 Charis Cheema jaylin [facility] CALCIUM LEVEL IONIZED WHOLE BLOOD 2024-07-30 03:53:00 Charis Cheema [facility] COMPLETE BLOOD COUNT 2024-07-30 03:48:00 Gab Tony [facility] AUTOMATED DIFFERENTIAL 2024-07-30 03:48:00 Toi Tony on [facility] COMPLETE BLOOD COUNT W/DIFF AND PLATELET 2024-07-30 03:48:00 Leila Lozano [facility] PTT 2024-07-30 00:00:00 [facility] Assess cath site pre-sheath removal 2024-07-30 00:00:00 [facility] POC GLUCOSE UNSOLICITED RESULTS 2024-07-29 23:46:00 Esteban Delarosa [facility] PTT 2024-07-29 23:40:00 Charis Cheema [facility] POC GLUCOSE UNSOLICITED RESULTS 2024-07-29 20:18:00 Esteban Delarosa [facility] POC GLUCOSE UNSOLICITED RESULTS 2024-07-29 18:33:00 Esteban Delarosa [facility] PT AND PTT 2024-07-29 17:30:00 Charis Cheema [facility] POTASSIUM LEVEL 2024-07-29 17:30:00 Leila Lozano Desi [facility] XR CHEST 1 VIEW 2024-07-29 11:15:31 Rafal Davidsonkeshavced [facility] POC GLUCOSE UNSOLICITED RESULTS 2024-07-29 11:07:00 Esteban Delarosa [facility] PT AND PTT 2024-07-29 10:27:00 BonnerVal staples [facility] POC GLUCOSE UNSOLICITED RESULTS 2024-07-29 08:21:00 Camila Delarosaaseun [facility] POTASSIUM LEVEL 2024-07-29 06:30:00 Charis Cheema Am [facility] POC GLUCOSE UNSOLICITED RESULTS 2024-07-29 03:19:00 Esteban Delarosa [facility] CALCIUM LEVEL IONIZED WHOLE BLOOD 2024-07-29 00:31:00 Charis Cheema [facility] COMPLETE BLOOD COUNT 2024-07-29 00:30:00 BonnerElizabeth staples [facility] COMPLETE BLOOD COUNT W/MANUAL DIFF 2024-07-29 00:30:00 BonnerVal staples [facility] BASIC METABOLIC PANEL 2024-07-29 00:30:00 Marina Cheema [facility] MAGNESIUM LEVEL 2024-07-29 00:30:00 [facility] 2024-07-29 00:30:00 Charis Cheema [facility] POTASSIUM LEVEL 2024-07-29 00:30:00 Charis Cheema Am [facility] PTT 2024-07-29 00:30:00 Charis Cheema [facility] POC GLUCOSE UNSOLICITED RESULTS 2024-07-29 00:14:00 [facility]SE UNSOLICITED RESULTS 2024-07-28 20:05:00 [facility]OT[facility]SI[facility] LEV[facility] 2024-07-28 17:53:00 [facility] 2024-07-28 17:53:00 Charis Cheema [facility] POC GLUCOSE UNSOLICITED RESULTS 2024-07-28 17:12:00 [facility] TRANSTHORACIC ECHO (TTE) COMPLETE 2024-07-28 14:57:00 [facility] 2024-07-28 14:46:00 [facility] POTASSIUM LEVEL 2024-07-28 12:58:00 Charis Cheema Am [facility] TROPONIN I HIGH SENSITIVITY (SINGLE ORDER) 2024-07-28 12:58:00 Gab Tony [facility] INFLUENZA A/B/RSV PCR 2024-07-28 12:57:00 [facility] CORONAVIRUS (COVID-19) FRANK ICU/ISOLATION 2024-07-28 12:57:00 Charis [facility] POC GLUCOSE UNSOLICITED RESULTS 2024-07-28 11:49:00 [facility]OPONIN I HIGH SENSITIVITY (SINGLE ORDER) 2024-07-28 09:24:00 Gab Tony [facility] POC GLUCOSE UNSOLICITED RESULTS 2024-07-28 08:51:00 Camila Delarosaaseun [facility] XR CHEST 1 VIEW 2024-07-28 05:48:00 Gab Tony [facility] POC ARTERIAL BLOOD GAS PANEL UNSOLICITED RESULTS 2024-07-28 05:03:00 Camila Delarosaaseun [facility] MRSA BY PCR 2024-07-28 05:02:00 Gab Tony [facility] PT AND PTT 2024-07-28 05:00:00 Gab Tony [facility] COMPLETE BLOOD COUNT 2024-07-28 05:00:00 Gab Tony Sher [facility] AUTOMATED DIFFERENTIAL 2024-07-28 05:00:00 Toi Tony [facility] COMPREHENSIVE METABOLIC PANEL 2024-07-28 05:00:00 Gab Tony Sher [facility] LIPID PANEL W/CALCULATED LDL 2024-07-28 05:00:00 Gab Tony Sher [facility] HEMOGLOBIN A1C 2024-07-28 05:00:00 Gab Tony Sher [facility] LACTIC ACID LEVEL 2024-07-28 05:00:00 Gab Tony [facility] MAGNESIUM LEVEL 2024-07-28 05:00:00 Gab Tony [facility] PHOSPHORUS LEVEL 2024-07-28 05:00:00 Gab Tony [facility] COMPLETE BLOOD COUNT W/DIFF AND PLATELET 2024-07-28 05:00:00 Gab Tony Sher [facility] FIBRINOGEN 2024-07-28 05:00:00 Gab Tony [facility] PRO-BRAIN NATRIURETIC PEPTIDE (PRO-BNP) 2024-07-28 05:00:00 Gab Tony [facility] CALCIUM LEVEL IONIZED WHOLE BLOOD 2024-07-28 05:00:00 Gab Tony [facility] PROCALCITONIN LEVEL WITH REFLEX IF ABNORMAL 2024-07-28 05:00:00 Gab Tony [facility] THYROID STIMULATING HORMONE W/ REFLEX FREE T4 2024-07-28 05:00:00 Gab Tony [facility] TROPONIN I HIGH SENSITIVITY (SINGLE ORDER) 2024-07-28 05:00:00 Gab Tony [facility] POC GLUCOSE UNSOLICITED RESULTS 2024-07-28 04:48:00 Esteban Delarosa [facility] POCT GLUCOSE (AUTOMATED) 2019-12-22 16:41:00 Person, J [facility] CBC WITHOUT DIFF 2019-12-22 13:26:00 Gautam Mckeon [facility] POCT GLUCOSE (AUTOMATED) 2019-12-22 13:00:00 [facility]ABOLIC PANEL (NA, K, CL, CO2, GLUCOSE, BUN, CREATININE, CA) 2019-12-22 08:59:00 Denis Olguin [facility] POCT GLUCOSE (AUTOMATED) 2019-12-22 01:16:00 PersonTyler [facility] POCT GLUCOSE (AUTOMATED) 2019-12-21 21:10:00 PersonTyler [facility] COVID-19 (ID NOW RAPID TESTING) 2019-12-21 14:42:00 Gaston Spicer [facility] LACTIC ACID WHOLE BLOOD 2019-12-21 14:33:00 Do oren Spicer [facility] CT PELVIS W CONTRAST 2019-12-21 14:14:00 Esequiel Spicer [facility] HEPATIC FUNCTION PANEL ([id number]) (ALB,T.PRO,BILI T,BU/BC,ALT,AST,ALK PHOS) 2019-12-21 13:15:00 Gaston Spicer [facility] BASIC METABOLIC PANEL (NA, K, CL, CO2, GLUCOSE, BUN, CREATININE, CA) 2019-12-21 13:15:00 Gaston Spicer [facility] CBC WITH DIFF 2019-12-21 13:15:[address] [facility] PROTHROMBIN TIME / INR 2019-12-21 13:15:00 Damian Spicer [facility] ACTIVATED PARTIAL THRMPLAS AIXA 2019-12-21 13:15:00 Gaston Spicer [facility] CONSENT/REFUSAL FOR DIAGNOSIS AND TREATMENT 2019-12-21 11:38:52 Doctor Unassigned, [place] [facility] NOTICE OF PRIVACY PRACTICES 2019-12-21 11:38:22 Doctor Unassigned, [place] [facility] POCT Glucose [facility] Potassium Level [facility] Non-Invasive Ventilator - Me morial Osvaldo [facility] Complete Blood Count w/Diff and Platelet [facility] Phosphorus Level [facility] Structural Heart [facility] Hysterectomy [facility] Plan of Care Planned Activity Planned Date Details Comments Source Medication 2024-08-23 09:00:00 amiodarone ( Pacerone) tablet 100 mg [code = 034998] [facility] Procedure 2024-09-21 00:00:00 POCT Glucose [facility] Procedure 2024-09-19 00:00:00 Basic Metabolic Panel [facility] Procedure 2024-09-07 00:00:00 POCT Glucose Mem [facility] Encounters Start Date/Time End Date/Time Encounter Type Admission Type Attending Clinicians Care Facility Care Department Encounter ID Source 2022-11-09 07:27:49 Outpatient JOSE MARIA WADDELL [id number] [facility] [id number] [facility] 2024-07-31 02:39:00 2024-08-22 18:45:00 Hospital Encounter John Bruno Maria Margarita [facility] [place] [facility] [id number] [facility] 2024-07-31 02:39:00 2024-08-22 18:45:00 Inpatient Elective SHARYN GAMBLE [facility] Cardiology [id number] [facility] 2024-07-28 04:35:00 2024-07-31 01:50:00 Inpatient Elective [facility] General Medicine [id number] [facility] 2024-07-28 04:35:00 2024-07-31 01:50:00 Hospital Encounter Billy Desai Oluwaseun Arora [facility] [id number] [facility] 2022-11-09 14:13:00 2022-11-09 17:39:00 Outpatient JOSE MARIA DOBBS [id number] [facility] [id number] [facility] 2019-12-24 00:00:00 2019-12-24 00:00:00 Transition of Care Morena Wallis [id number] [facility] 2019-12-21 12:47:59 2019-12-22 16:57:00 Hospital Encounter Person, Brian [facility] [id number] [facility] 2019-12-21 12:47:59 2019-12-21 12:47:59 Emergency X UNKNOWN, ATTENDING [facility] ERT [id number] [facility] 2019-12-21 06:42:04 2019-12-21 11:30:00 Emergency Gaston Spicer [facility] [id number] [facility] 2019-12-21 06:38:00 2019-12-21 06:38:00 Emergency X [facility] ERT [id number] [facility] 2017-09-07 16:19:00 2017-09-09 04:59:59 Phone Message nullFlavo r [facility] [id number] Viktoriya Riley 2017-07-27 13:45:00 2017-07-28 05:59:59 Outpatient nullFlavo r [facility] [id number] Viktoriya Riley 2016-07-09 11:15:00 2016-07-09 11:15:00 Outpatient MHIE MHIE [id number] Viktoriya Riley 2016-07-02 08:30:00 2016-07-02 08:30:00 Outpatient MHIE MHIE [id number] Viktoriya Riley Results Test Description Test Time Test Comments Results Result Co mments Source [facility] [id number] 12:13:06* Test Item Value Reference Range Interpretation Comme nts POC Glu (test code = 0284346714) 272 mg/dL 70-99 H POC Performing Location (nima t code = 1433837416) SP9 HF IMU Lab Interpretation (test cod e = 79653-9) Abnormal [facility]2025-04-02 08:05:02* Test Item Value Reference Range Interpretation Comme nts POC Glu (test code = 2795218075) 143 mg/dL 70-99 H POC Glu Comment 1 (test code = 4993920555) Notified RN/MD POC Glu Comment 2 (test code = 2292214953) Cleaned Meter POC Performing Location (nima t code = 8401568778) SP9 HF IMU Lab Interpretation (test cod e = 97921-4) Abnormal [facility] [id number] 12:14:44* Test Item Value Reference Range Interpretation Comme nts POC Glu (test code = 6871671002) 270 mg/dL 70-99 H POC Performing Location (nima t code = 3228503430) SP9 HF IMU Lab Interpretation (test cod e = 05575-0) Abnormal [facility] [id number] 08:21:18* Test Item Value Reference Range Interpretation Comme nts POC Glu (test code = 1398839638) 129 mg/dL 70-99 H POC Performing Location (nima t code = 8924058275) SP9 HF IMU Lab Interpretation (test cod e = 88505-0) Abnormal [facility] [id number] 21:14:21* Test Item Value Reference Range Interpretation Comme nts POC Glu (test code = 0650684814) 92 mg/dL 70-99 POC Glu Comment 1 (test code = 3600011608) Notified RN/MD POC Glu Comment 2 (test code = 8348138696) Cleaned Meter POC Performing Location (nima t code = 3010501256) SP9 HF IMU [facility] [id number] 17:28:00* Test Item Value Reference Range Interpretation Comme nts POC Glu (test code = 7784373762) 234 mg/dL 70-99 H POC Performing Location (nima t code = 6552291338) SP9 HF IMU Lab Interpretation (test cod e = 13438-0) Abnormal [facility] [id number] 12:02:50* Test Item Value Reference Range Interpretation Comme nts POC Glu (test code = 0921624209) 190 mg/dL 70-99 H POC Glu Comment 1 (test code = 9467169521) Notified RN/MD POC Performing Location (nima t code = 7347194605) SP9 HF IMU Lab Interpretation (test cod e = 47039-7) Abnormal [facility] [id number] 08:09:57* Test Item Value Reference Range Interpretation Comme nts POC Glu (test code = 0737952333) 118 mg/dL 70-99 H POC Performing Location (nima t code = 1347457377) SP9 HF IMU Lab Interpretation (test cod e = 79909-0) Abnormal [facility] [id number] 21:05:50* Test Item Value Reference Range Interpretation Comme nts POC Glu (test code = 6154242025) 163 mg/dL 70-99 H POC Glu Comment 1 (test code = 0763085187) Notified RN/MD POC Glu Comment 2 (test code = 0376639720) Cleaned Meter POC Performing Location (nima t code = 6029195641) SP9 HF IMU Lab Interpretation (test cod e = 65944-7) Abnormal [facility] [id number] 18:23:10* Test Item Value Reference Range Interpretation Comme nts POC Glu (test code = 7902108827) 138 mg/dL 70-99 H POC Performing Location (nima t code = 7265827778) SP9 HF IMU Lab Interpretation (test cod e = 69180-0) [facility] [id number] 14:37:40* Test Item Value Reference Range Interpretation Comme nts RVOT Vmean (test code = 9666211476) 0.72 m/s LA Vol I (A4C) BSA (test code = 0744689245) 37 ml/m2 LA Vol I BSA (test code = 5647060866) 30.8 ml/m2 LVOT Vmax/AV Vmax (test code = 5447582606) 0.59 {ratio} Ao Root diam diastole (test code = 6378994998) 32 mm LVOT Vmean (test code = 3241060252) 0.62 m/s LV SV (A4C) (test code = 7814935262) 63.8 ml LV SI (A2C) (test code = 3507778797) 43.3 ml LV SV (BP) (test code = 0259124861) 57.1 ml LV SI (A4C) (test code = 1156290290) 40.9 ml/m2 LV SI (A2C) (test code = 6739617622) 27.8 ml/m2 LV SI (BP) (test code = 7474696318) 36.6 ml/m2 LVLs (A4C) (test code = 1249969928) 69.3 mm LVLs (A2C) (test code = 6049708981) 67.3 mm LVLd (A4C) (test code = 9753237066) 81.4 mm LVLd (A2C) (test code = 2643384613) 75.7 mm PV mn berny (test code = 1500413556) 0.88 m/s LV ESV A2C (test code = 5300379872) 38.7 mL LV EDV A4C (test code = 2367862180) 138 mL LA area A4C (test code = 1206505810) 20.2 cm2 LA area A2C (test code = 7598881291) 17.6 cm2 LV ESV A4C (test code = 8284341223) 74.2 mL LV EDV A2C (test code = 9813758797) 82 mL MV max berny (test code = 6654987516) 1.71 cm/s TAPSE (test code = 7680978651) 18 mm IVC size (test code = 1336506606) 15 mm RV FAC 2D (test code = 4356701247) LA ESV A2C (test code = 6376711244) 48 mL LA ESV A4C (test code = 9286807496) 48 mL RV KESHAWN (test code = 2132684317) 6.3 cm2 MV mn berny (test code = 0914671777) 1.08 m/s LV est EF (test code = 7788258466) 52 % LA vol index (test code = 0809960224) 35 mL/m2 LV EDV BP (test code = 8200295488) 110 mL LV ESV BP (test code = 1812526903) 52.9 mL MV A pk berny (test code = 3398467091) 1.29 m/s MV VTI (test code = 4304199390) 55.5 cm MV E pk berny (test code = 7767662219) 1.39 m/s PV mn grad (test code = 3169860237) mmHg MV pk grad (test code = 2967095644) mmHg AV pk grad (test code = 4599337854) mmHg LV stroke vol (test code = 9167796553) 62 ml RVOT VTI (test code = 3952981314) 22 cm RVOT pk berny (test code = 2008100350) 0.92 m/s AV VTI (test code = 2928860636) 32.9 cm AV pk berny (test code = 1624330275) 1.68 m/s LVOT VTI (test code = 5648742271) 19.6 cm LVOT pk berny (test code = 7968002206) 0.99 m/s LVOT area (test code = 8898016223) 3.14 cm2 LVOT diam (test code = 4796300172) 20 mm MV DT (test code = 9653577545) 327 ms MV e' lateral berny (test code = 6943755157) 5.43 cm/s MV E/A ratio (test code = 1891576341) PV pk grad (test code = 4820033636) mmHg MV area cont eq (test code = 0263546994) 1.11 cm2 MV mn grad (test code = 8799806810) mmHg LVOT pk grad (test code = 2119913632) mmHg AV mn grad (test code = 3685975792) mmHg RVOT mn grad (test code = 7364313723) mmHg RVOT pk grad (test code = 7227725534) mmHg MV E/e' septal (test code = 5154273940) AV area pk berny (test code = 1561239647) 1.85 cm2 AV area cont VTI (test code = 2734042053) 1.87 cm2 LVOT mn grad (test code = 1391498301) mmHg RV ZUNILDA (test code = 2519208911) 15.5 cm2 RV-brown mid diam (test code = 8781735629) 26 cm RV-brown basal diam (test code = 9270838887) 36 cm RV-brown longitudinal diam (test code = 0649950220) 72 cm LV A4C EF (test code = 1354054696) 46 % LV A2C EF (test code = 9628535989) 53 % AV mn berny (test code = 5073144226) 1.13 m/s LVPWd (test code = 8099739491) 9 mm LA size (test code = 8792102996) 42 mm Ascending aorta (test code = 7378960669) 29 mm LA vol BP (test code = 0336773961) 54.6 ml LV biplane EF (test code = 5716383417) 51.9 % IVC prox (test code = 7101237221) 14.875332386995878 cm Fractional Shortening 2D (test code = 9296492433) 27 % LVIDs (test code = 4035093010) 35 mm IVSd (test code = 5048099196) 10 mm LVIDd (test code = 6095373398) 47 mm PV pk berny (test code = 5888008998) 1.26 m/s PV VTI (test code = 3064166) 29.4 cm MV E/e' lateral (test code = 6498813) MV e' septal berny (test code = 4738509) 5.7 cm/s LV ESV 2D (test code = 1853348) 49.5 mL LV EDV 2D (test code = 7370418) 103 mL IVSd 2D (test code = 2455098) 9.152198624946142 cm BSA (test code = 5260881821) 1.53 m2 Radiology Study observation (narrative) (test code = 81195-1) FLOYD (test code = FLOYD) [facility] Rxaewhw0151-97-31 12:44:45* Test Item Value Reference Range Interpretation Comme nts POC Glu (test code = 8965780938) 266 mg/dL 70-99 H POC Performing Location (nima t code = 5236457778) SP9 HF IMU Lab Interpretation (test cod e = 61003-0) Abnormal [facility] Eymujeh5878-01-53 20:59:04* Test Item Value Reference Range Interpretation Comme nts POC Glu (test code = 8683087331) 174 mg/dL 70-99 H POC Glu Comment 1 (test code = 1831465016) Notified RN/MD POC Performing Location (nima t code = 8184880718) SP9 HF ICU Lab Interpretation (test cod e = 54694-1) Abnormal [facility] Qtyxqxd1725-14-93 17:58:45* Test Item Value Reference Range Interpretation Comme nts POC Glu (test code = 6938986284) 99 mg/dL 70-99 POC Glu Comment 1 (test code = 8522931983) Notified RN/MD POC Performing Location (nima t code = 5669825826) 9 HF ICU [facility] Tdriabs5688-43-26 12:20:43* Test Item Value Reference Range Interpretation Comme nts POC Glu (test code = 0515424423) 256 mg/dL 70-99 H POC Glu Comment 1 (test code = 0131232959) Notified RN/MD POC Performing Location (nima t code = 0617193479) SP9 HF ICU Lab Interpretation (test cod e = 10627-0) Abnormal [facility] Hkktuor0737-97-44 08:43:20* Test Item Value Reference Range Interpretation Comme nts POC Glu (test code = 2646270762) 105 mg/dL 70-99 H POC Glu Comment 1 (test code = 9850719021) Notified RN/MD POC Performing Location (nima t code = 0239935580) SP9 HF IMU Lab Interpretation (test cod e = 62833-0) Abnormal [facility] Uacqqnn1475-48-72 20:27:03* Test Item Value Reference Range Interpretation Comme nts POC Glu (test code = 4878731850) 162 mg/dL 70-99 H POC Glu Comment 1 (test code = 0136122451) Notified RN/MD POC Performing Location (nima t code = 7783106705) SP9 HF ICU Lab Interpretation (test cod e = 25690-6) Abnormal [facility] Tjsuxqx3188-50-20 17:19:36* Test Item Value Reference Range Interpretation Comme nts POC Glu (test code = 2771843067) 111 mg/dL 70-99 H POC Performing Location (nima t code = 5132124418) SP9 HF ICU Lab Interpretation (test cod e = 82382-3) [facility] 16:27:25* Test Item Value Reference Range Interpretation Comme nts BSA (test code = 2748152057) 1.61 m2 Radiology Study observation (narrative) (test code = 84304-8) FLOYD (test code = FLOYD) [facility] Prjxxojho5806-53-45 15:00:47* Test Item Value Reference Range Interpretation Comme nts LV est EF (test code = 6060308521) 37 % LV biplane EF (test code = 9473166798) 37.4 % LV A2C EF (test code = 4553451286) 26 % LV A4C EF (test code = 9446088165) 49 % LV SV (BP) (test code = 8497180615) 56.5 ml LV SI (A2C) (test code = 0771271026) 40 ml LV SV (A4C) (test code = 5056389011) 73.4 ml LV ESV BP (test code = 1754157785) 94.5 mL LV ESV A2C (test code = 0504417292) 112 mL LV EDV BP (test code = 6500945772) 151 mL LV ESV A4C (test code = 4033295942) 75.7 mL LV EDV A2C (test code = 4418902924) 152 mL LV EDV A4C (test code = 3526468226) 149 mL LVLd (A2C) (test code = 1193010615) 88.2 mm LVLd (A4C) (test code = 4646905659) 87 mm LVLs (A2C) (test code = 8231654162) 79.1 mm LVLs (A4C) (test code = 4907641979) 84.1 mm MV E pk berny (test code = 4998266497) 1.09 m/s MV A pk berny (test code = 1053434699) 0.73 m/s MV E/A ratio (test code = 5000718647) MV DT (test code = 4695208444) 300 ms LVOT pk berny (test code = 3466196845) 0.64 m/s LVOT mn grad (test code = 1464640603) mmHg LVOT Vmean (test code = 0802634053) 0.37 m/s LVOT VTI (test code = 7447439574) 12.5 cm TAPSE (test code = 4479705837) 17 mm AV mn grad (test code = 6310446356) mmHg AV pk grad (test code = 0132986199) mmHg AV mn berny (test code = 3240500918) 0.64 m/s AV pk berny (test code = 5241320701) 1.27 m/s AV VTI (test code = 0023623983) 30.9 cm LVOT pk grad (test code = 2346493121) mmHg LVOT Vmax/AV Vmax (test code = 9524073326) 0.5 {ratio} MV mn grad (test code = 8224139069) mmHg MV pk grad (test code = 7431784002) mmHg MV mn berny (test code = 4571535618) 0.664 m/s MV PHT (test code = 4951911726) 88 ms MV area PHT (test code = 6134773683) 2.5 cm2 MV VTI (test code = 8729212524) 43.5 cm MV max berny (test code = 0622951604) 1.49 cm/s Radiology Study observation (narrative) (test code = 19147-9) FLOYD (test code = FLOYD) [facility] Maubfoz2806-93-26 12:54:30* Test Item Value Reference Range Interpretation Comme nts POC Glu (test code = 2282615651) 165 mg/dL 70-99 H POC Performing Location (nima t code = 3939458856) SP9 HF ICU Lab Interpretation (test cod e = 00116-3) Abnormal [facility] 12 qzjv0781-43-00 08:49:49* Test Item Value Reference Range Interpretation Comme nts Ventricular Rate (test code = 1832493055) BPM Atrial Rate (test code = 8884688208) BPM QRS Duration (test code = 9047067021) 80 ms QT/QTc (test code = 1958506560) 398 ms QTc Calculation (test code = 2229445381) 521 ms R-[place] (test code = 1460795603) degrees T-[place] (test code = 8472456669) degrees IMP (test code = IMP) PXN (test code = PXN) [facility] Lisiipg5775-52-71 08:32:14* Test Item Value Reference Range Interpretation Comme nts POC Glu (test code = 1669600324) 132 mg/dL 70-99 H POC Performing Location (nima t code = 6640863166) SP9 HF ICU Lab Interpretation (test cod e = 90957-0) Abnormal [facility] Ejgafsv1649-61-56 21:00:16* Test Item Value Reference Range Interpretation Comme nts POC Glu (test code = 5827636137) 199 mg/dL 70-99 H POC Glu Comment 1 (test code = 0511125320) Notified RN/MD POC Glu Comment 2 (test code = 9535969052) Cleaned Meter POC Performing Location (nima t code = 6216259567) SP9 HF IMU Lab Interpretation (test cod e = 55685-7) Abnormal [facility] EpicElectrocardiogram, 47-kgza3513-54-27 19:12:54* Test Item Value Reference Range Interpretation Comme nts Ventricular Rate (test code = 2923687054) BPM Atrial Rate (test code = 5177466414) BPM [place] Interval (test code = 5365664103) 142 ms QRS Duration (test code = 7896973268) 78 ms QT/QTc (test code = 9829463130) 516 ms QTc Calculation (test code = 6376242520) 540 ms P-[place] (test code = 6097648982) degrees R-[place] (test code = 2550893454) degrees T-[place] (test code = 7035821332) degrees IMP (test code = IMP) PXN (test code = PXN) [facility] Aajrlho0386-01-07 18:34:50* Test Item Value Reference Range Interpretation Comme nts POC Glu (test code = 2397406665) 117 mg/dL 70-99 H POC Performing Location (nima t code = 0180441356) SP9 HF IMU Lab Interpretation (test cod e = 99411-6) Abnormal [facility] EpicPrepare RBC: 1 Szekd3997-61-70 14:52:11* Test Item Value Reference Range Interpretation Comme nts Product Code (test code = 25) [id number] Unit Number (test code = 1624) [id number] Unit ABO (test code = 1435186) O Unit RH (test code = 5856565) POS Crossmatch (test code = 9026743) Compatible Dispense Status (test code = 1623) Transfused Blood Expiration Date (test code = 530) Product Blood Type (test cod e = 532) Unit Volume (test code = 1322-7) 300 mL [facility] Jnzalir2883-80-09 12:20:17* Test Item Value Reference Range Interpretation Comme nts POC Glu (test code = 1710360022) 173 mg/dL 70-99 H POC Performing Location (nima t code = 7143110031) HV8 CVICU Lab Interpretation (test cod e = 35345-1) Abnormal [facility] Bandsxh3776-70-95 08:40:06* Test Item Value Reference Range Interpretation Comme nts POC Glu (test code = 1127479535) 151 mg/dL 70-99 H POC Performing Location (nima t code = 9100500740) HV8 CVICU Lab Interpretation (test cod e = 33904-0) Abnormal [facility] Venous Blood Gas and Comprehensive Jrvgf2805-66-74 04:22:13* Test Item Value Reference Range Interpretation Comme nts POC V Temp (test code = 9071191047) DegC POC V Source (test code = 1796349655) OLIVA POC V PO2 (test code = 2705-2) See_Comment [Automated [employer] ge] The system which generated this result transmitted reference range: 20 - 49 mmHg. The reference range was not used to interpret this result as normal/abnormal. POC V pH (test code = 2746-6) 7.28-7.42 POC V PCO2 (test code = 2020-) See_Comment [Automated [employer] ge] The system which generated this result transmitted reference range: 38 - 52 mmHg. The reference range was not used to interpret this result as normal/abnormal. POC V Oxyhgb (test code = 1616805060) 68 % 95-100 L POC V O2 Sat (leidy) (test code = 0696389518) 70 % 40.0-70.0 POC V O2 Sat (calc) (test code = 2711-0) 75 % 40-70 H POC V HCO3 (test code = 47558-1) 30 mmol/L 22-26 H POC V Carboxy (test code = 2402113484) 1.8 % Non-Smoker: 0.0-2.0 Smoker: 0.0-9.0 Reference RangeNon-Smoker 0.0-2.0 ? ?Smoker 0.0-9.0 POC V BE (test code = 1927-3) 5 mmol/L -2-2 H POC V Methgb (test code = 2617-9) 1.1 % 0.0-1.4 POC V Hgb Tot (test code = 42503-8) 9.5 g/dL 11.2-15.7 L POC V Hct (calc) (test code = 30345-2) 29 % 34.1-44.9 L POC V Na (test code = 23279-6) See_Comment L [Automated messa ge] The system which generated this result transmitted reference range: 135 - 145 mEq/L. The reference range was not used to interpret this result as normal/abnormal. POC V K (test code = 26339-1) See_Comment [Automated messa ge] The system which generated this result transmitted reference range: 3.5 - 5.1 mEq/L. The reference range was not used to interpret this result as normal/abnormal. POC V Cl (test code = 84630-4) See_Comment [Automated messa ge] The system which generated this result transmitted reference range: 95 - 109 mEq/L. The reference range was not used to interpret this result as normal/abnormal. POC V Glu (test code = 93370-9) 158 mg/dL 70-99 H POC V LA (test code = 2519-7) See_Comment [Automated messa ge] The system which generated this result transmitted reference range: 0.5 - 2.2 mMol/L. The reference range was not used to interpret this result as normal/abnormal. POC V Ca Ion (test code = 22641-4) See_Comment [Automated messa ge] The system which generated this result transmitted reference range: 1.05 - 1.25 mMol/L. The reference range was not used to interpret this result as normal/abnormal. POC V Ca Ion (7.4) (test code = 5872148632) See_Comment [Automated messa ge] The system which generated this result transmitted reference range: 1.05 - 1.25 mMol/L. The reference range was not used to interpret this result as normal/abnormal. POC V Mode #1 (test code = 3530731627) NC 1L POC V O2 Device #1 (test code = 5817525328) Cannula POC Performing Location (test code = 3073463372) [facility] Lab Interpretation (test code = 55104-2) Abnormal [facility] Arterial Blood Gas and Comprehensive Awswy3235-30-47 22:00:22* Test Item Value Reference Range Interpretation Comme nts POC A Temp (test code = 3340148474) DegC POC A Source (test code = 5096814645) ART POC A pH (test code = 2744-1) 7.35-7.45 H POC A PCO2 (test code = 2019-) See_Comment [Automated messa ge] The system which generated this result transmitted reference range: 35 - 45 mmHg. The reference range was not used to interpret this result as normal/abnormal. POC A PO2 (test code = 2703-7) See_Comment [Automated messa ge] The system which generated this result transmitted reference range: 80 - 100 mmHg. The reference range was not used to interpret this result as normal/abnormal. POC A HCO3 (test code = 1960-4) See_Comment H [Automated messa ge] The system which generated this result transmitted reference range: 22 - 26 mMol/L. The reference range was not used to interpret this result as normal/abnormal. POC A BE (test code = 1925-7) See_Comment H [Automated messa ge] The system which generated this result transmitted reference range: -2 - 2 mMol/L. The reference range was not used to interpret this result as normal/abnormal. POC A O2 Sat (calc) (test code = 2708-6) 97.3 % 95-100 POC A O2 Sat (leidy) (test code = 1699451739) 99.5 % 95.0-100.0 POC A Oxyhgb (test code = 2034206439) 96.2 % 95-100 POC A Carboxy (test code = 0835124446) 2.2 % Non-Smoker: 0.0-2.0 Smoker: 0.0-9.0 H Reference RangeNon-Smoker 0.0-2.0 ? ?Smoker 0.0-9.0 POC A Methgb (test code = 2615-3) 1.2 % 0.0-1.4 POC A Hgb Tot (test code = 49568-3) 6.9 g/dL 11.2-15.7 LL POC A Hct (calc) (test code = 14693-4) 21 % 34.1-44.9 L POC A Na (test code = 72443-7) See_Comment L [Automated messa ge] The system which generated this result transmitted reference range: 135 - 145 mEq/L. The reference range was not used to interpret this result as normal/abnormal. POC A K (test code = 3943578) See_Comment [Automated messa ge] The system which generated this result transmitted reference range: 3.5 - 5.1 mEq/L. The reference range was not used to interpret this result as normal/abnormal. POC Chloride (test code = 7840538) See_Comment [Automated messa ge] The system which generated this result transmitted reference range: 95 - 109 mEq/L. The reference range was not used to interpret this result as normal/abnormal. POC A Glu (test code = 2339-0) 138 mg/dL 70-99 H POC A LA (test code = 224) See_Comment [Automated messa ge] The system which generated this result transmitted reference range: 0.5 - 2.2 mMol/L. The reference range was not used to interpret this result as normal/abnormal. POC A Ca Ion (test code = 49180-4) See_Comment [Automated messa ge] The system which generated this result transmitted reference range: 1.05 - 1.25 mMol/L. The reference range was not used to interpret this result as normal/abnormal. POC A Ca Ion (7.4) (test code = 5196447953) 1.27 mmol/L 1.05-1.25 H POC A Mode #1 (test code = 8585626845) NC 1L POC A O2 Device #1 (test code = 4772876416) Cannula POC Performing Location (test code = 8444431862) [facility] Lab Interpretation (test code = 34541-1) Abnormal [facility] Adubdwp1642-71-73 17:22:54* Test Item Value Reference Range Interpretation Comme nts POC Glu (test code = 5910174917) 263 mg/dL 70-99 H POC Performing Location (nima t code = 2680796707) HV8 CVICU Lab Interpretation (test cod e = 05924-2) Abnormal [facility] Arterial Blood Gas and Comprehensive Njzzx5134-06-83 16:29:23* Test Item Value Reference Range Interpretation Comme nts POC A Temp (test code = 9784544820) DegC POC A Source (test code = 2740544252) ART POC A pH (test code = 2744-1) 7.35-7.45 POC A PCO2 (test code = 2018-) See_Comment [Automated messa ge] The system which generated this result transmitted reference range: 35 - 45 mmHg. The reference range was not used to interpret this result as normal/abnormal. POC A PO2 (test code = 2703-7) See_Comment L [Automated messa ge] The system which generated this result transmitted reference range: 80 - 100 mmHg. The reference range was not used to interpret this result as normal/abnormal. POC A HCO3 (test code = 1960-4) See_Comment H [Automated messa ge] The system which generated this result transmitted reference range: 22 - 26 mMol/L. The reference range was not used to interpret this result as normal/abnormal. POC A BE (test code = 1925-7) See_Comment H [Automated messa ge] The system which generated this result transmitted reference range: -2 - 2 mMol/L. The reference range was not used to interpret this result as normal/abnormal. POC A O2 Sat (calc) (test code = 2708-6) 95.6 % 95-100 POC A O2 Sat (leidy) (test code = 3333606224) 98.3 % 95.0-100.0 POC A Oxyhgb (test code = 7590127360) 95.6 % 95-100 POC A Carboxy (test code = 5270831137) 2 % Non-Smoker: 0.0-2.0 Smoker: 0.0-9.0 Reference RangeNon-Smoker 0.0-2.0 ? ?Smoker 0.0-9.0 POC A Methgb (test code = 2615-3) 0.8 % 0.0-1.4 POC A Hgb Tot (test code = 05938-0) 7.9 g/dL 11.2-15.7 L POC A Hct (calc) (test code = 92880-0) 24 % 34.1-44.9 L POC A Na (test code = 02189-0) See_Comment L [Automated messa ge] The system which generated this result transmitted reference range: 135 - 145 mEq/L. The reference range was not used to interpret this result as normal/abnormal. POC A K (test code = 7611923) See_Comment [Automated messa ge] The system which generated this result transmitted reference range: 3.5 - 5.1 mEq/L. The reference range was not used to interpret this result as normal/abnormal. POC Chloride (test code = 4634136) See_Comment [Automated messa ge] The system which generated this result transmitted reference range: 95 - 109 mEq/L. The reference range was not used to interpret this result as normal/abnormal. POC A Glu (test code = 2339-0) 262 mg/dL 70-99 H POC A LA (test code = 224) See_Comment [Automated messa ge] The system which generated this result transmitted reference range: 0.5 - 2.2 mMol/L. The reference range was not used to interpret this result as normal/abnormal. POC A Ca Ion (test code = 01474-4) See_Comment [Automated messa ge] The system which generated this result transmitted reference range: 1.05 - 1.25 mMol/L. The reference range was not used to interpret this result as normal/abnormal. POC A Ca Ion (7.4) (test code = 0652268383) 1.18 mmol/L 1.05-1.25 POC Performing Location (test code = 4652626344) [facility] Lab Interpretation (test code = 79905-1) Abnormal [facility] Arterial Blood Gas and Comprehensive Akywy1211-61-64 12:40:41* Test Item Value Reference Range Interpretation Comme nts POC A Temp (test code = 2877227268) DegC POC A Source (test code = 0432288678) ART POC A pH (test code = 2744-1) 7.35-7.45 POC A PCO2 (test code = 2019-) See_Comment H [Automated messa ge] The system which generated this result transmitted reference range: 35 - 45 mmHg. The reference range was not used to interpret this result as normal/abnormal. POC A PO2 (test code = 2703-7) See_Comment [Automated messa ge] The system which generated this result transmitted reference range: 80 - 100 mmHg. The reference range was not used to interpret this result as normal/abnormal. POC A HCO3 (test code = 1960-4) See_Comment H [Automated messa ge] The system which generated this result transmitted reference range: 22 - 26 mMol/L. The reference range was not used to interpret this result as normal/abnormal. POC A BE (test code = 1925-7) See_Comment H [Automated messa ge] The system which generated this result transmitted reference range: -2 - 2 mMol/L. The reference range was not used to interpret this result as normal/abnormal. POC A O2 Sat (calc) (test code = 2708-6) 99 % 95-100 POC A O2 Sat (leidy) (test code = 3544155102) 100 % 95.0-100.0 POC A Oxyhgb (test code = 8315693709) 97.1 % 95-100 POC A Carboxy (test code = 4049960835) 2 % Non-Smoker: 0.0-2.0 Smoker: 0.0-9.0 Reference RangeNon-Smoker 0.0-2.0 ? ?Smoker 0.0-9.0 POC A Methgb (test code = 2615-3) 0.9 % 0.0-1.4 POC A Hgb Tot (test code = 07969-3) 8.3 g/dL 11.2-15.7 L POC A Hct (calc) (test code = 06610-3) 25 % 34.1-44.9 L POC A Na (test code = 28742-2) See_Comment L [Automated messa ge] The system which generated this result transmitted reference range: 135 - 145 mEq/L. The reference range was not used to interpret this result as normal/abnormal. POC A K (test code = 1163659) See_Comment [Automated messa ge] The system which generated this result transmitted reference range: 3.5 - 5.1 mEq/L. The reference range was not used to interpret this result as normal/abnormal. POC Chloride (test code = 0796463) See_Comment [Automated messa ge] The system which generated this result transmitted reference range: 95 - 109 mEq/L. The reference range was not used to interpret this result as normal/abnormal. POC A Glu (test code = 2339-0) 165 mg/dL 70-99 H POC A LA (test code = 224) See_Comment [Automated [employer] ge] The system which generated this result transmitted reference range: 0.5 - 2.2 mMol/L. The reference range was not used to interpret this result as normal/abnormal. POC A Ca Ion (test code = 83078-9) See_Comment [Automated [employer]] The system which generated this result transmitted reference range: 1.05 - 1.25 mMol/L. The reference range was not used to interpret this result as normal/abnormal. POC A Ca Ion (7.4) (test code = 7197623710) 1.19 mmol/L 1.05-1.25 POC Performing Location (test code = 1067235659) [facility] Lab Interpretation (test code = 58413-9) Abnormal [facility] Venous Blood Gas and Comprehensive Cbsck4246-09-61 10:00:03* Test Item Value Reference Range Interpretation Comme nts POC V Temp (test code = 7760589328) DegC POC V Source (test code = 5767080389) OLIVA POC V PO2 (test code = 2705-2) See_Comment [Automated [employer]] The system which generated this result transmitted reference range: 20 - 49 mmHg. The reference range was not used to interpret this result as normal/abnormal. POC V pH (test code = 2746-6) 7.28-7.42 POC V PCO2 (test code = 2020-4) See_Comment [Automated [employer]] The system which generated this result transmitted reference range: 38 - 52 mmHg. The reference range was not used to interpret this result as normal/abnormal. POC V Oxyhgb (test code = 4595041354) 75.3 % 95-100 L POC V O2 Sat (leidy) (test code = 3518391300) 77.6 % 40.0-70.0 H POC V O2 Sat (calc) (test code = 2711-0) 82 % 40-70 H POC V HCO3 (test code = 89953-4) 30 mmol/L 22-26 H POC V Carboxy (test code = 0022849908) 1.8 % Non-Smoker: 0.0-2.0 Smoker: 0.0-9.0 Reference RangeNon-Smoker 0.0-2.0 ? ?Smoker 0.0-9.0 POC V BE (test code = 1927-3) 4 mmol/L -2-2 H POC V Methgb (test code = 2617-9) 1.3 % 0.0-1.4 POC V Hgb Tot (test code = 98801-7) 8.5 g/dL 11.2-15.7 L POC V Hct (calc) (test code = 24907-6) 26 % 34.1-44.9 L POC V Na (test code = 32105-7) See_Comment L [Automated messa ge] The system which generated this result transmitted reference range: 135 - 145 mEq/L. The reference range was not used to interpret this result as normal/abnormal. POC V K (test code = 46837-2) See_Comment [Automated messa ge] The system which generated this result transmitted reference range: 3.5 - 5.1 mEq/L. The reference range was not used to interpret this result as normal/abnormal. POC V Cl (test code = 29234-0) See_Comment [Automated messa ge] The system which generated this result transmitted reference range: 95 - 109 mEq/L. The reference range was not used to interpret this result as normal/abnormal. POC V Glu (test code = 83272-0) 176 mg/dL 70-99 H POC V LA (test code = 2519-7) See_Comment [Automated messa ge] The system which generated this result transmitted reference range: 0.5 - 2.2 mMol/L. The reference range was not used to interpret this result as normal/abnormal. POC V Ca Ion (test code = 94279-0) See_Comment [Automated messa ge] The system which generated this result transmitted reference range: 1.05 - 1.25 mMol/L. The reference range was not used to interpret this result as normal/abnormal. POC V Ca Ion (7.4) (test code = 7199451657) See_Comment [Automated messa ge] The system which generated this result transmitted reference range: 1.05 - 1.25 mMol/L. The reference range was not used to interpret this result as normal/abnormal. POC V Mode #1 (test code = 4989619560) 2L NC POC Performing Location (test code = 7899069995) [facility] Lab Interpretation (test code = 03914-1) Abnormal [facility] Arterial Blood Gas and Comprehensive Attve3881-95-71 09:52:06* Test Item Value Reference Range Interpretation Comme nts POC A Temp (test code = 2568868812) DegC POC A Source (test code = 4040292914) ART POC A pH (test code = 2744-1) 7.35-7.45 POC A PCO2 (test code = 2019-) See_Comment [Automated messa ge] The system which generated this result transmitted reference range: 35 - 45 mmHg. The reference range was not used to interpret this result as normal/abnormal. POC A PO2 (test code = 2703-7) See_Comment [Automated messa ge] The system which generated this result transmitted reference range: 80 - 100 mmHg. The reference range was not used to interpret this result as normal/abnormal. POC A HCO3 (test code = 1960-4) See_Comment H [Automated messa ge] The system which generated this result transmitted reference range: 22 - 26 mMol/L. The reference range was not used to interpret this result as normal/abnormal. POC A BE (test code = 1925-7) See_Comment H [Automated messa ge] The system which generated this result transmitted reference range: -2 - 2 mMol/L. The reference range was not used to interpret this result as normal/abnormal. POC A O2 Sat (calc) (test code = 2708-6) 98.1 % 95-100 POC A O2 Sat (leidy) (test code = 6232777777) 99.3 % 95.0-100.0 POC A Oxyhgb (test code = 3035955201) 96.2 % 95-100 POC A Carboxy (test code = 1235857804) 1.6 % Non-Smoker: 0.0-2.0 Smoker: 0.0-9.0 Reference RangeNon-Smoker 0.0-2.0 ? ?Smoker 0.0-9.0 POC A Methgb (test code = 2615-3) 1.5 % 0.0-1.4 HH POC A Hgb Tot (test code = 96246-9) 8.7 g/dL 11.2-15.7 L POC A Hct (calc) (test code = 59478-1) 26 % 34.1-44.9 L POC A Na (test code = 07663-0) See_Comment L [Automated messa ge] The system which generated this result transmitted reference range: 135 - 145 mEq/L. The reference range was not used to interpret this result as normal/abnormal. POC A K (test code = 1452521) See_Comment [Automated messa ge] The system which generated this result transmitted reference range: 3.5 - 5.1 mEq/L. The reference range was not used to interpret this result as normal/abnormal. POC Chloride (test code = 6787611) See_Comment [Automated messa ge] The system which generated this result transmitted reference range: 95 - 109 mEq/L. The reference range was not used to interpret this result as normal/abnormal. POC A Glu (test code = 2339-0) 180 mg/dL 70-99 H POC A LA (test code = 224) See_Comment [Automated messa ge] The system which generated this result transmitted reference range: 0.5 - 2.2 mMol/L. The reference range was not used to interpret this result as normal/abnormal. POC A Ca Ion (test code = 48197-5) See_Comment [Automated messa ge] The system which generated this result transmitted reference range: 1.05 - 1.25 mMol/L. The reference range was not used to interpret this result as normal/abnormal. POC A Ca Ion (7.4) (test code = 1658328767) 1.17 mmol/L 1.05-1.25 POC Performing Location (test code = 8441683976) [facility] Lab Interpretation (test code = 63456-6) Abnormal [facility] RBC: 4 Cggky9874-35-39 09:47:08* Test Item Value Reference Range Interpretation Comme nts Product Code (test code = 25) [id number] Unit Number (test code = 1624) [id number] Unit ABO (test code = 9548270) O Unit RH (test code = 7293449) POS Crossmatch (test code = 5542489) Compatible Dispense Status (test code = 1623) Released Blood Expiration Date (test code = 530) Product Blood Type (test cod e = 532) Unit Volume (test code = 1322-7) [facility]: 2 Units Transfusion indications: Hold for dnassru5355-24-77 09:47:07* Test Item Value Reference Range Interpretation Comme nts Product Code (test code = 25) [id number] Unit Number (test code = 1624) [id number] Unit ABO (test code = 1241830) O Unit RH (test code = 9590824) POS Dispense Status (test code = 1623) Released Blood Expiration Date (test code = 530) Product Blood Type (test cod e = 532) Unit Volume (test code = 1322-7) 190 mL [facility] Arterial Blood Gas and Comprehensive Jyxbp9891-93-98 20:05:46* Test Item Value Reference Range Interpretation Comme nts POC A Temp (test code = 1944290358) DegC POC A Source (test code = 9779497806) ART POC A pH (test code = 2744-1) 7.35-7.45 H POC A PCO2 (test code = 2019-8) See_Comment [Automated messa ge] The system which generated this result transmitted reference range: 35 - 45 mmHg. The reference range was not used to interpret this result as normal/abnormal. POC A PO2 (test code = 2703-7) See_Comment [Automated messa ge] The system which generated this result transmitted reference range: 80 - 100 mmHg. The reference range was not used to interpret this result as normal/abnormal. POC A HCO3 (test code = 1960-4) See_Comment H [Automated messa ge] The system which generated this result transmitted reference range: 22 - 26 mMol/L. The reference range was not used to interpret this result as normal/abnormal. POC A BE (test code = 1925-7) See_Comment H [Automated messa ge] The system which generated this result transmitted reference range: -2 - 2 mMol/L. The reference range was not used to interpret this result as normal/abnormal. POC A O2 Sat (calc) (test code = 2708-6) 97.9 % 95-100 POC A O2 Sat (leidy) (test code = 9801403123) 99.1 % 95.0-100.0 POC A Oxyhgb (test code = 2579576705) 97.1 % 95-100 POC A Carboxy (test code = 3428398853) 1.6 % Non-Smoker: 0.0-2.0 Smoker: 0.0-9.0 Reference RangeNon-Smoker 0.0-2.0 ? ?Smoker 0.0-9.0 POC A Methgb (test code = 2615-3) 0.0-1.4 POC A Hgb Tot (test code = 81555-9) 8.8 g/dL 11.2-15.7 L POC A Hct (calc) (test code = 45276-9) 26 % 34.1-44.9 L POC A Na (test code = 49668-5) See_Comment L [Automated messa ge] The system which generated this result transmitted reference range: 135 - 145 mEq/L. The reference range was not used to interpret this result as normal/abnormal. POC A K (test code = 5822350) See_Comment [Automated messa ge] The system which generated this result transmitted reference range: 3.5 - 5.1 mEq/L. The reference range was not used to interpret this result as normal/abnormal. POC Chloride (test code = 8139549) See_Comment [Automated messa ge] The system which generated this result transmitted reference range: 95 - 109 mEq/L. The reference range was not used to interpret this result as normal/abnormal. POC A Glu (test code = 2339-0) 243 mg/dL 70-99 H POC A LA (test code = 224) See_Comment [Automated messa ge] The system which generated this result transmitted reference range: 0.5 - 2.2 mMol/L. The reference range was not used to interpret this result as normal/abnormal. POC A Ca Ion (test code = 66238-6) See_Comment [Automated messa ge] The system which generated this result transmitted reference range: 1.05 - 1.25 mMol/L. The reference range was not used to interpret this result as normal/abnormal. POC A Ca Ion (7.4) (test code = 1541090522) 1.22 mmol/L 1.05-1.25 POC A Mode #1 (test code = 3208958825) 2L NC POC Performing Location (test code = 4106211114) [facility] CLI Lab Interpretation (test code = 73411-3) Abnormal [facility] Kmnhbwr0220-54-56 18:09:48* Test Item Value Reference Range Interpretation Comme nts POC Glu (test code = 2254461282) 187 mg/dL 70-99 H POC Performing Location (nima t code = 9901637287) HV8 CVICU Lab Interpretation (test cod e = 37499-3) Abnormal [facility] Rgskwue0326-37-46 12:18:16* Test Item Value Reference Range Interpretation Comme nts POC Glu (test code = 4920010134) 156 mg/dL 70-99 H POC Performing Location (nima t code = 1690741960) [facility]8 CVICU Lab Interpretation (test cod e = 48061-2) Abnormal [facility] Mnyriwc8322-04-71 08:18:13* Test Item Value Reference Range Interpretation Comme nts POC Glu (test code = 7379536926) 136 mg/dL 70-99 H POC Performing Location (nima t code = 1329599906) [facility] CV[facility] Lab Interpretation (test cod e = 53337-6) Abnormal [facility] Venous Blood Gas and Comprehensive Jbppy6270-70-12 04:53:49* Test Item Value Reference Range Interpretation Comme nts POC V Temp (test code = 1353635482) DegC POC V Source (test code = 7212953484) OLIVA POC V PO2 (test code = 2705-2) See_Comment [Automated [employer]] The system which generated this result transmitted reference range: 20 - 49 mmHg. The reference range was not used to interpret this result as normal/abnormal. POC V pH (test code = 2746-6) 7.28-7.42 H POC V PCO2 (test code = 2020-4) See_Comment [Automated [employer]] The system which generated this result transmitted reference range: 38 - 52 mmHg. The reference range was not used to interpret this result as normal/abnormal. POC V Oxyhgb (test code = 1359502317) 74.5 % 95-100 L POC V O2 Sat (leidy) (test code = 9275014022) 76.9 % 40.0-70.0 H POC V O2 Sat (calc) (test code = 2711-0) 83 % 40-70 H POC V HCO3 (test code = 54088-6) 33 mmol/L 22-26 H POC V Carboxy (test code = 1298628592) 2 % Non-Smoker: 0.0-2.0 Smoker: 0.0-9.0 Reference RangeNon-Smoker 0.0-2.0 ? ?Smoker 0.0-9.0 POC V BE (test code = 1927-3) 8 mmol/L -2-2 H POC V Methgb (test code = 2617-9) 1.1 % 0.0-1.4 POC V Hgb Tot (test code = 58329-4) 9 g/dL 11.2-15.7 L POC V Hct (calc) (test code = 31588-7) 27 % 34.1-44.9 L POC V Na (test code = 68154-2) See_Comment L [Automated messa ge] The system which generated this result transmitted reference range: 135 - 145 mEq/L. The reference range was not used to interpret this result as normal/abnormal. POC V K (test code = 22334-6) See_Comment [Automated messa ge] The system which generated this result transmitted reference range: 3.5 - 5.1 mEq/L. The reference range was not used to interpret this result as normal/abnormal. POC V Cl (test code = 57188-2) See_Comment [Automated messa ge] The system which generated this result transmitted reference range: 95 - 109 mEq/L. The reference range was not used to interpret this result as normal/abnormal. POC V Glu (test code = 47972-1) 145 mg/dL 70-99 H POC V LA (test code = 2519-7) See_Comment [Automated messa ge] The system which generated this result transmitted reference range: 0.5 - 2.2 mMol/L. The reference range was not used to interpret this result as normal/abnormal. POC V Ca Ion (test code = 61201-0) See_Comment [Automated messa ge] The system which generated this result transmitted reference range: 1.05 - 1.25 mMol/L. The reference range was not used to interpret this result as normal/abnormal. POC V Ca Ion (7.4) (test code = 0763945387) See_Comment [Automated messa ge] The system which generated this result transmitted reference range: 1.05 - 1.25 mMol/L. The reference range was not used to interpret this result as normal/abnormal. POC Performing Location (test code = 2731760086) [facility] Lab Interpretation (test code = 29347-1) Abnormal [facility] Lqvbqhg7667-47-01 17:45:03* Test Item Value Reference Range Interpretation Comme [facility] POC Glu (test code = 6093573013) 165 mg/dL 70-99 H POC Performing Location (nima t code = 4999306079) [facility]8 CVICU Lab Interpretation (test cod e = 73899-8) Abnormal [facility] Xwtndsg9520-46-81 12:39:39* Test Item Value Reference Range Interpretation Comme [facility] POC Glu (test code = 4784930763) 236 mg/dL 70-99 H POC Performing Location (nima t code = 4155772549) [facility]8 CVICU Lab Interpretation (test cod e = 48085-9) Abnormal [facility] Fcuenbx7236-16-58 07:38:16* Test Item Value Reference Range Interpretation Comme [facility] POC Glu (test code = 7774301639) 102 mg/dL 70-99 H POC Performing Location (nima t code = 8556582785) HV5 HEART Lab Interpretation (test cod e = 23102-8) Abnormal [facility] Venous Blood Gas and Comprehensive Vxlbw3424-90-26 04:29:16* Test Item Value Reference Range Interpretation Comme nts POC V Temp (test code = 5395798512) DegC POC V Source (test code = 8808745685) OLIVA POC V PO2 (test code = 2705-2) See_Comment [Automated messa ge] The system which generated this result transmitted reference range: 20 - 49 mmHg. The reference range was not used to interpret this result as normal/abnormal. POC V pH (test code = 2746-6) 7.28-7.42 H POC V PCO2 (test code = 2020-4) See_Comment L [Automated messa ge] The system which generated this result transmitted reference range: 38 - 52 mmHg. The reference range was not used to interpret this result as normal/abnormal. POC V Oxyhgb (test code = 1944552751) 71.6 % 95-100 L POC V O2 Sat (elidy) (test code = 5341352463) 73.6 % 40.0-70.0 H POC V O2 Sat (calc) (test code = 2711-0) 81 % 40-70 H POC V HCO3 (test code = 25518-1) 25 mmol/L 22-26 POC V Carboxy (test code = 5622496018) 2.1 % Non-Smoker: 0.0-2.0 Smoker: 0.0-9.0 H Reference RangeNon-Smoker 0.0-2.0 ? ?Smoker 0.0-9.0 POC V BE (test code = 1927-3) 0 mmol/L -2-2 POC V Methgb (test code = 2617-9) 0.7 % 0.0-1.4 POC V Hgb Tot (test code = 84291-8) 7.6 g/dL 11.2-15.7 L POC V Hct (calc) (test code = 25768-9) 23 % 34.1-44.9 L POC V Na (test code = 97555-1) See_Comment [Automated messa ge] The system which generated this result transmitted reference range: 135 - 145 mEq/L. The reference range was not used to interpret this result as normal/abnormal. POC V K (test code = 77192-7) See_Comment [Automated messa ge] The system which generated this result transmitted reference range: 3.5 - 5.1 mEq/L. The reference range was not used to interpret this result as normal/abnormal. POC V Cl (test code = 93159-4) See_Comment [Automated messa ge] The system which generated this result transmitted reference range: 95 - 109 mEq/L. The reference range was not used to interpret this result as normal/abnormal. POC V Glu (test code = 88514-2) 104 mg/dL 70-99 H POC V LA (test code = 2519-7) See_Comment [Automated messa ge] The system which generated this result transmitted reference range: 0.5 - 2.2 mMol/L. The reference range was not used to interpret this result as normal/abnormal. POC V Ca Ion (test code = 00000-6) See_Comment H [Automated [employer]] The system which generated this result transmitted reference range: 1.05 - 1.25 mMol/L. The reference range was not used to interpret this result as normal/abnormal. POC V Ca Ion (7.4) (test code = 3617729058) See_Comment H [Automated [employer]] The system which generated this result transmitted reference range: 1.05 - 1.25 mMol/L. The reference range was not used to interpret this result as normal/abnormal. POC Performing Location (test code = 4478369468) [facility] Lab Interpretation (test code = 01426-6) [facility] 19:54:54* Test Item Value Reference Range Interpretation Comme nts LVOT Vmax/AV Vmax (test code = 9708320056) 0.69 {ratio} LVOT Vmean (test code = 8736000098) 0.68 m/s TR pk grad (test code = 1773864704) mmHg AV pk grad (test code = 0464693013) mmHg AV VTI (test code = 7580003490) 26.2 cm AV pk berny (test code = 6579812081) 1.39 m/s LVOT VTI (test code = 3211352324) 20.7 cm LVOT pk berny (test code = 5450381837) 0.96 m/s LVOT pk grad (test code = 5568774719) mmHg AV mn grad (test code = 3701617778) mmHg TR pk berny (test code = 3615128442) 2.58 m/s LVOT mn grad (test code = 8943902009) mmHg AV mn berny (test code = 9004862151) 0.85 m/s Radiology Study observation (narrative) (test code = 06042-1) FLOYD (test code = FLOYD) [facility] Ssiwnqo3188-36-41 19:17:51* Test Item Value Reference Range Interpretation Comme nts POC Glu (test code = 2807901142) 144 mg/dL 70-99 H POC Performing Location (nima t code = 7846715727) HV5 HEART Lab Interpretation (test cod e = 81437-1) [facility] bcqsrnkm5811-05-69 17:46:06* Test Item Value Reference Range Interpretation Comme nts RVOT Vmean (test code = 9947668226) 0.61 m/s LA Vol I (A4C) BSA (test code = 9038024232) 38.3 ml/m2 LA Vol I BSA (test code = 0307301357) 45.8 ml/m2 LVOT Vmax/AV Vmax (test code = 6796840281) 0.59 {ratio} Ao Root diam diastole (test code = 0242729095) 32 mm LVOT Vmean (test code = 8433312767) 0.32 m/s LV SV (A4C) (test code = 8502553834) 25.5 ml LV SI (A2C) (test code = 8891952384) 25.5 ml LV SV (BP) (test code = 8782751875) 28.1 ml LV SI (A4C) (test code = 6383020154) 15.5 ml/m2 LV SI (A2C) (test code = 3642008055) 15.5 ml/m2 LV SI (BP) (test code = 3963198836) 17.1 ml/m2 LVLs (A4C) (test code = 0275759655) 64.4 mm LVLs (A2C) (test code = 7460951080) 66.4 mm LVLd (A4C) (test code = 9540156976) 68.6 mm LVLd (A2C) (test code = 6930589966) 74.7 mm PV mn berny (test code = 7524647147) 0.59 m/s LV ESV A2C (test code = 2215139720) 50.3 mL LV EDV A4C (test code = 1988043687) 78.9 mL LA area A4C (test code = 0035495608) 21.3 cm2 LA area A2C (test code = 8403528910) 22.8 cm2 LV ESV A4C (test code = 1576580050) 53.2 mL LV EDV A2C (test code = 9500104759) 75.8 mL MV max berny (test code = 4539603111) 1.68 cm/s TAPSE (test code = 1551103119) 21 mm IVC size (test code = 2180700516) 18 mm LA ESV A2C (test code = 5968460430) 75.914284667189572 mL LA ESV A4C (test code = 0234906783) 75.492566939589478 mL MV mn berny (test code = 9859934881) 0.903 m/s LV est EF (test code = 3292483103) 33 % LA vol index (test code = 7511931982) 42.7 mL/m2 LV EDV BP (test code = 2033909296) 80.5 mL LV ESV BP (test code = 2294331627) 52.4 mL MV A pk berny (test code = 2153639519) 1.3 m/s MV PHT (test code = 3019130130) 71 ms MV VTI (test code = 7438705725) 44.7 cm MV E pk berny (test code = 7186785065) 1.53 m/s PV mn grad (test code = 5025301194) mmHg MV pk grad (test code = 7097414668) mmHg AV pk grad (test code = 5002945413) mmHg LV stroke vol (test code = 5568002028) 39 ml RVOT VTI (test code = 1749945333) 22 cm RVOT pk berny (test code = 5141894352) 0.81 m/s AV VTI (test code = 4703585428) 19.1 cm AV pk berny (test code = 9450964565) 0.89 m/s LVOT VTI (test code = 2863320798) 11.3 cm LVOT pk berny (test code = 3251558848) 0.52 m/s LVOT area (test code = 5083568557) 3.46 cm2 LVOT diam (test code = 4645746530) 21 mm MV DT (test code = 2584575239) 243 ms MV e' lateral berny (test code = 5891215798) 5 cm/s MV E/A ratio (test code = 9803611366) PV pk grad (test code = 8553411681) mmHg MV area cont eq (test code = 8716130332) 0.87 cm2 MV area PHT (test code = 6515133700) 3.1 cm2 MV mn grad (test code = 9253706123) mmHg LVOT pk grad (test code = 5172321980) mmHg AV mn grad (test code = 7198044862) mmHg RVOT mn grad (test code = 3538134099) mmHg RVOT pk grad (test code = 6604093934) mmHg MV E/e' septal (test code = 2263486777) RA vol (test code = 1689844095) 29.9 mL/m2 AV area pk berny (test code = 3655130351) 2.03 cm2 AV area cont VTI (test code = 6446530795) 2.05 cm2 LVOT mn grad (test code = 3196443456) mmHg RV-brown mid diam (test code = 9657841025) 37 cm RV-brown basal diam (test code = 1669500792) 42 cm RV-brown longitudinal diam (test code = 3495344824) 66 cm LV A4C EF (test code = 9465342738) 32 % LV A2C EF (test code = 8593632743) 34 % AV mn berny (test code = 9671722272) 0.63 m/s LVPWd (test code = 1867034594) 7 mm LA size (test code = 7852374797) 37 mm Ascending aorta (test code = 1803131789) 30 mm LA vol BP (test code = 9620987455) 70 ml LV biplane EF (test code = 3199905272) 34.9 % IVC prox (test code = 7011923139) 17.298935465305358 cm Fractional Shortening 2D (test code = 9484790414) 16 % LVIDs (test code = 1905340874) 39 mm IVSd (test code = 0033129517) 9 mm LVIDd (test code = 4218691340) 46 mm PV pk berny (test code = 2545273360) 0.85 m/s PV VTI (test code = 2192608) 18.2 cm MV E/e' lateral (test code = 9830715) MV e' septal berny (test code = 9568837) 5.55 cm/s LV ESV 2D (test code = 4899134) 65.5 mL LV EDV 2D (test code = 6050248) 97.8 mL IVSd 2D (test code = 9700541) 9.273957335503326 cm BSA (test code = 3027285958) 1.66 m2 Radiology Study observation (narrative) (test code = 79415-5) FLOYD (test code = FLOYD) [facility] Sbvtshk0599-95-62 17:44:55* Test Item Value Reference Range Interpretation Comme nts POC Glu (test code = 6463520090) 162 mg/dL 70-99 H POC Performing Location (nima t code = 4820283437) HV5 HEART Lab Interpretation (test cod e = 18998-1) Abnormal [facility] Venous Blood Gas and Comprehensive Vunvh4400-93-60 16:29:00* Test Item Value Reference Range Interpretation Comme nts POC V Temp (test code = 2092778250) DegC POC V Source (test code = 5327473649) OLIVA POC V PO2 (test code = 2705-2) See_Comment [Automated [employer]] The system which generated this result transmitted reference range: 20 - 49 mmHg. The reference range was not used to interpret this result as normal/abnormal. POC V pH (test code = 2746-6) 7.28-7.42 POC V PCO2 (test code = 2020-) See_Comment L [Automated messa ge] The system which generated this result transmitted reference range: 38 - 52 mmHg. The reference range was not used to interpret this result as normal/abnormal. POC V Oxyhgb (test code = 9735047090) 68.9 % 95-100 L POC V O2 Sat (leidy) (test code = 6091981945) 71.4 % 40.0-70.0 H POC V O2 Sat (calc) (test code = 2711-0) 72 % 40-70 H POC V HCO3 (test code = 78975-0) 23 mmol/L 22-26 POC V Carboxy (test code = 5894446947) 2.5 % Non-Smoker: 0.0-2.0 Smoker: 0.0-9.0 H Reference RangeNon-Smoker 0.0-2.0 ? ?Smoker 0.0-9.0 POC V BE (test code = 1927-3) -2 mmol/L -2-2 POC V Methgb (test code = 2617-9) 1 % 0.0-1.4 POC V Hgb Tot (test code = 48440-3) 7.8 g/dL 11.2-15.7 L POC V Hct (calc) (test code = 46592-1) 23 % 34.1-44.9 L POC V Na (test code = 56884-1) See_Comment [Automated messa ge] The system which generated this result transmitted reference range: 135 - 145 mEq/L. The reference range was not used to interpret this result as normal/abnormal. POC V K (test code = 16959-1) See_Comment L [Automated messa ge] The system which generated this result transmitted reference range: 3.5 - 5.1 mEq/L. The reference range was not used to interpret this result as normal/abnormal. POC V Cl (test code = 06400-5) See_Comment [Automated messa ge] The system which generated this result transmitted reference range: 95 - 109 mEq/L. The reference range was not used to interpret this result as normal/abnormal. POC V Glu (test code = 07766-2) 189 mg/dL 70-99 H POC V LA (test code = 2519-7) See_Comment [Automated messa ge] The system which generated this result transmitted reference range: 0.5 - 2.2 mMol/L. The reference range was not used to interpret this result as normal/abnormal. POC V Ca Ion (test code = 77142-6) See_Comment [Automated messa ge] The system which generated this result transmitted reference range: 1.05 - 1.25 mMol/L. The reference range was not used to interpret this result as normal/abnormal. POC V Ca Ion (7.4) (test code = 8491147662) See_Comment [Automated messa ge] The system which generated this result transmitted reference range: 1.05 - 1.25 mMol/L. The reference range was not used to interpret this result as normal/abnormal. POC V Mode #1 (test code = 7520535804) VENOUS POC Performing Location (test code = 1004735811) [facility] Lab Interpretation (test code = 75721-3) Abnormal [facility] Zkcxszp2830-16-27 12:58:41* Test Item Value Reference Range Interpretation Comme nts POC Glu (test code = 7980974937) 155 mg/dL 70-99 H POC Performing Location (nima t code = 4309077820) HV5 HEART Lab Interpretation (test cod e = 96008-8) Abnormal [facility] Agofsqe7434-32-71 08:46:55* Test Item Value Reference Range Interpretation Comme nts POC Glu (test code = 5544342174) 129 mg/dL 70-99 H POC Performing Location (nima t code = 6234896532) HV5 HEART Lab Interpretation (test cod e = 75280-2) Abnormal [facility] Activated Clotting Brbh3737-63-02 05:20:17* Test Item Value Reference Range Interpretation Comme nts POC Activated Clotting Time (test code = 239) seconds POC Performing Location (nima t code = 3489881942) HV2 CATH [facility] Btstrtx4776-81-25 04:39:04* Test Item Value Reference Range Interpretation Comme [facility] POC Glu (test code = 3013140071) 119 mg/dL 70-99 H POC Performing Location (nima t code = 4683329887) HV5 HEART Lab Interpretation (test cod e = 66828-1) Abnormal [facility] Arterial Blood Gas and Comprehensive Igxgm6278-41-35 21:29:55* Test Item Value Reference Range Interpretation Comme nts POC A Temp (test code = 8648528867) DegC POC A Source (test code = 4349450897) ART POC A pH (test code = 2744-1) 7.35-7.45 H POC A PCO2 (test code = 2019-8) See_Comment L [Automated messa ge] The system which generated this result transmitted reference range: 35 - 45 mmHg. The reference range was not used to interpret this result as normal/abnormal. POC A PO2 (test code = 2703-7) See_Comment [Automated messa ge] The system which generated this result transmitted reference range: 80 - 100 mmHg. The reference range was not used to interpret this result as normal/abnormal. POC A HCO3 (test code = 1960-4) See_Comment [Automated messa ge] The system which generated this result transmitted reference range: 22 - 26 mMol/L. The reference range was not used to interpret this result as normal/abnormal. POC A BE (test code = 1925-7) See_Comment [Automated messa ge] The system which generated this result transmitted reference range: -2 - 2 mMol/L. The reference range was not used to interpret this result as normal/abnormal. POC A O2 Sat (calc) (test code = 2708-6) 97.2 % 95-100 POC A O2 Sat (leidy) (test code = 0556324927) 99.9 % 95.0-100.0 POC A Oxyhgb (test code = 8131155212) 96.1 % 95-100 POC A Carboxy (test code = 1856110678) 2.9 % Non-Smoker: 0.0-2.0 Smoker: 0.0-9.0 H Reference RangeNon-Smoker 0.0-2.0 ? ?Smoker 0.0-9.0 POC A Methgb (test code = 2615-3) 0.9 % 0.0-1.4 POC A Hgb Tot (test code = 74561-3) 10.1 g/dL 11.2-15.7 L POC A Hct (calc) (test code = 68928-7) 30 % 34.1-44.9 L POC A Na (test code = 87138-3) See_Comment L [Automated messa ge] The system which generated this result transmitted reference range: 135 - 145 mEq/L. The reference range was not used to interpret this result as normal/abnormal. POC A K (test code = 2915825) See_Comment [Automated messa ge] The system which generated this result transmitted reference range: 3.5 - 5.1 mEq/L. The reference range was not used to interpret this result as normal/abnormal. POC Chloride (test code = 2812927) See_Comment [Automated messa ge] The system which generated this result transmitted reference range: 95 - 109 mEq/L. The reference range was not used to interpret this result as normal/abnormal. POC A Glu (test code = 2339-0) 128 mg/dL 70-99 H POC A LA (test code = 224) See_Comment [Automated messa ge] The system which generated this result transmitted reference range: 0.5 - 2.2 mMol/L. The reference range was not used to interpret this result as normal/abnormal. POC A Ca Ion (test code = 99101-6) See_Comment [Automated messa ge] The system which generated this result transmitted reference range: 1.05 - 1.25 mMol/L. The reference range was not used to interpret this result as normal/abnormal. POC A Ca Ion (7.4) (test code = 8058594436) 1.22 mmol/L 1.05-1.25 POC A Mode #1 (test code = 3176319446) 2L NC POC Performing Location (test code = 4827825294) [facility] Lab Interpretation (test code = 56219-9) Abnormal [facility] Arterial Blood Gas and Comprehensive Dghsa1962-04-06 17:57:13* Test Item Value Reference Range Interpretation Comme nts POC A Temp (test code = 9543513004) DegC POC A Source (test code = 2063514433) ART POC A pH (test code = 2744-1) 7.35-7.45 H POC A PCO2 (test code = 2019) See_Comment LL [Automated messa ge] The system which generated this result transmitted reference range: 35 - 45 mmHg. The reference range was not used to interpret this result as normal/abnormal. POC A PO2 (test code = 2703-7) See_Comment L [Automated messa ge] The system which generated this result transmitted reference range: 80 - 100 mmHg. The reference range was not used to interpret this result as normal/abnormal. POC A HCO3 (test code = 1960-4) See_Comment L [Automated messa ge] The system which generated this result transmitted reference range: 22 - 26 mMol/L. The reference range was not used to interpret this result as normal/abnormal. POC A BE (test code = 1925-7) See_Comment [Automated messa ge] The system which generated this result transmitted reference range: -2 - 2 mMol/L. The reference range was not used to interpret this result as normal/abnormal. POC A O2 Sat (calc) (test code = 2708-6) 92.9 % 95-100 L POC A O2 Sat (leidy) (test code = 9809305361) 95.7 % 95.0-100.0 POC A Oxyhgb (test code = 3465242871) 91.7 % 95-100 L POC A Carboxy (test code = 2126905024) 3 % Non-Smoker: 0.0-2.0 Smoker: 0.0-9.0 H Reference RangeNon-Smoker 0.0-2.0 ? ?Smoker 0.0-9.0 POC A Methgb (test code = 2615-3) 1.2 % 0.0-1.4 POC A Hgb Tot (test code = 16308-0) 9.7 g/dL 11.2-15.7 L POC A Hct (calc) (test code = 51367-3) 29 % 34.1-44.9 L POC A Na (test code = 41384-9) See_Comment [Automated messa ge] The system which generated this result transmitted reference range: 135 - 145 mEq/L. The reference range was not used to interpret this result as normal/abnormal. POC A K (test code = 6359982) See_Comment L [Automated messa ge] The system which generated this result transmitted reference range: 3.5 - 5.1 mEq/L. The reference range was not used to interpret this result as normal/abnormal. POC Chloride (test code = 8917944) See_Comment H [Automated messa ge] The system which generated this result transmitted reference range: 95 - 109 mEq/L. The reference range was not used to interpret this result as normal/abnormal. POC A Glu (test code = 2339-0) 127 mg/dL 70-99 H POC A LA (test code = 224) See_Comment [Automated messa ge] The system which generated this result transmitted reference range: 0.5 - 2.2 mMol/L. The reference range was not used to interpret this result as normal/abnormal. POC A Ca Ion (test code = 62924-0) See_Comment [Automated messa ge] The system which generated this result transmitted reference range: 1.05 - 1.25 mMol/L. The reference range was not used to interpret this result as normal/abnormal. POC A Ca Ion (7.4) (test code = 7622163071) 1.14 mmol/L 1.05-1.25 POC A Mode #1 (test code = 7699151619) RA POC Performing Location (test code = 4268445176) BG CL[facility] Lab Interpretation (test code = 93449-5) Abnormal [facility] Arterial Blood Gas and Comprehensive Bynol8849-84-23 11:33:22* Test Item Value Reference Range Interpretation Comme nts POC A Temp (test code = 9864385228) DegC POC A Source (test code = 0792050861) ART POC A pH (test code = 2744-1) 7.35-7.45 POC A PCO2 (test code = 2018-) See_Comment L [Automated messa ge] The system which generated this result transmitted reference range: 35 - 45 mmHg. The reference range was not used to interpret this result as normal/abnormal. POC A PO2 (test code = 2703-7) See_Comment [Automated messa ge] The system which generated this result transmitted reference range: 80 - 100 mmHg. The reference range was not used to interpret this result as normal/abnormal. POC A HCO3 (test code = 1960-4) See_Comment [Automated messa ge] The system which generated this result transmitted reference range: 22 - 26 mMol/L. The reference range was not used to interpret this result as normal/abnormal. POC A BE (test code = 1925-7) See_Comment [Automated messa ge] The system which generated this result transmitted reference range: -2 - 2 mMol/L. The reference range was not used to interpret this result as normal/abnormal. POC A O2 Sat (calc) (test code = 2708-6) 98.2 % 95-100 POC A O2 Sat (leidy) (test code = 8309430594) 99.9 % 95.0-100.0 POC A Oxyhgb (test code = 3774179833) 95.7 % 95-100 POC A Carboxy (test code = 8220123773) 2.3 % Non-Smoker: 0.0-2.0 Smoker: 0.0-9.0 H Reference RangeNon-Smoker 0.0-2.0 ? ?Smoker 0.0-9.0 POC A Methgb (test code = 2615-3) 2 % 0.0-1.4 HH POC A Hgb Tot (test code = 79466-7) 8.8 g/dL 11.2-15.7 L POC A Hct (calc) (test code = 68329-5) 26 % 34.1-44.9 L POC A Na (test code = 93467-1) See_Comment L [Automated messa ge] The system which generated this result transmitted reference range: 135 - 145 mEq/L. The reference range was not used to interpret this result as normal/abnormal. POC A K (test code = 3979112) See_Comment [Automated messa ge] The system which generated this result transmitted reference range: 3.5 - 5.1 mEq/L. The reference range was not used to interpret this result as normal/abnormal. POC Chloride (test code = 8572387) See_Comment [Automated messa ge] The system which generated this result transmitted reference range: 95 - 109 mEq/L. The reference range was not used to interpret this result as normal/abnormal. POC A Glu (test code = 2339-0) 196 mg/dL 70-99 H POC A LA (test code = 224) See_Comment [Automated messa ge] The system which generated this result transmitted reference range: 0.5 - 2.2 mMol/L. The reference range was not used to interpret this result as normal/abnormal. POC A Ca Ion (test code = 17396-8) See_Comment [Automated messa ge] The system which generated this result transmitted reference range: 1.05 - 1.25 mMol/L. The reference range was not used to interpret this result as normal/abnormal. POC A Ca Ion (7.4) (test code = 0127812268) 1.1 mmol/L 1.05-1.25 POC A Mode #1 (test code = 7178740604) NC 2LITERS POC Performing Location (test code = 3069749419) BG CLIN Lab Interpretation (test code = 50966-7) Abnormal [facility]: 1 Idbru3892-32-93 10:50:18* Test Item Value Reference Range Interpretation Comme [facility] Product Code (test code = 25) [id number] Unit Number (test code = 1624) [id number] Unit ABO (test code = 8579970) O Unit RH (test code = 0750112) NEG Crossmatch (test code = 9048703) Compatible Dispense Status (test code = 1623) Transfused Blood Expiration Date (test code = 530) Product Blood Type (test cod e = 532) Unit Volume (test code = 1322-7) 300 mL [facility] EpicPrepare RBC: 1 Rgtuf4564-80-12 08:03:42* Test Item Value Reference Range Interpretation Comme [facility] Product Code (test code = 25) [id number] Unit Number (test code = 1624) [id number] Unit ABO (test code = 4238251) O Unit RH (test code = 2655202) POS Crossmatch (test code = 4120909) Compatible Dispense Status (test code = 1623) Transfused Blood Expiration Date (test code = 530) Product Blood Type (test cod e = 532) Unit Volume (test code = 1322-7) 344 mL [facility] Venous Blood Gas and Comprehensive Hyify7182-31-38 04:29:25* Test Item Value Reference Range Interpretation Comme nts POC V Temp (test code = 8171401035) DegC POC V Source (test code = 8255999920) OLIVA POC V PO2 (test code = 2705-2) See_Comment [Automated messa ge] The system which generated this result transmitted reference range: 20 - 49 mmHg. The reference range was not used to interpret this result as normal/abnormal. POC V pH (test code = 2746-6) 7.28-7.42 H POC V PCO2 (test code = 2020-) See_Comment L [Automated messa ge] The system which generated this result transmitted reference range: 38 - 52 mmHg. The reference range was not used to interpret this result as normal/abnormal. POC V Oxyhgb (test code = 4291209478) 69.7 % 95-100 L POC V O2 Sat (leidy) (test code = 8032429369) 71.8 % 40.0-70.0 H POC V O2 Sat (calc) (test code = 2711-0) 80 % 40-70 H POC V HCO3 (test code = 19133-9) 24 mmol/L 22-26 POC V Carboxy (test code = 1698999865) 2 % Non-Smoker: 0.0-2.0 Smoker: 0.0-9.0 Reference RangeNon-Smoker 0.0-2.0 ? ?Smoker 0.0-9.0 POC V BE (test code = 1927-3) 0 mmol/L -2-2 POC V Methgb (test code = 2617-9) 0.9 % 0.0-1.4 POC V Hgb Tot (test code = 05295-5) 10.2 g/dL 11.2-15.7 L POC V Hct (calc) (test code = 44843-1) 31 % 34.1-44.9 L POC V Na (test code = 82222-5) See_Comment [Automated messa ge] The system which generated this result transmitted reference range: 135 - 145 mEq/L. The reference range was not used to interpret this result as normal/abnormal. POC V K (test code = 03367-4) See_Comment [Automated messa ge] The system which generated this result transmitted reference range: 3.5 - 5.1 mEq/L. The reference range was not used to interpret this result as normal/abnormal. POC V Cl (test code = 63230-1) See_Comment [Automated messa ge] The system which generated this result transmitted reference range: 95 - 109 mEq/L. The reference range was not used to interpret this result as normal/abnormal. POC V Glu (test code = 10022-7) 137 mg/dL 70-99 H POC V LA (test code = 2519-7) See_Comment [Automated messa ge] The system which generated this result transmitted reference range: 0.5 - 2.2 mMol/L. The reference range was not used to interpret this result as normal/abnormal. POC V Ca Ion (test code = 09744-3) See_Comment [Automated messa ge] The system which generated this result transmitted reference range: 1.05 - 1.25 mMol/L. The reference range was not used to interpret this result as normal/abnormal. POC V Ca Ion (7.4) (test code = 1114659004) See_Comment [Automated messa ge] The system which generated this result transmitted reference range: 1.05 - 1.25 mMol/L. The reference range was not used to interpret this result as normal/abnormal. POC Performing Location (test code = 8441580422) HVI BG CLI Lab Interpretation (test code = 67162-6) Abnormal [facility] Tnmpabr9762-94-60 21:37:08* Test Item Value Reference Range Interpretation Comme nts POC Glu (test code = 4563345091) 145 mg/dL 70-99 H POC Performing Location (nima t code = 3826089971) HV5 HEART Lab Interpretation (test cod e = 00859-3) Abnormal [facility] Venous Blood Gas and Comprehensive Zgyey2226-00-75 18:56:12* Test Item Value Reference Range Interpretation Comme nts POC V Temp (test code = 2791690661) DegC POC V Source (test code = 3938182177) OLIVA POC V PO2 (test code = 2705-2) See_Comment [Automated messa ge] The system which generated this result transmitted reference range: 20 - 49 mmHg. The reference range was not used to interpret this result as normal/abnormal. POC V pH (test code = 2746-6) 7.28-7.42 POC V PCO2 (test code = 2020-) See_Comment L [Automated messa ge] The system which generated this result transmitted reference range: 38 - 52 mmHg. The reference range was not used to interpret this result as normal/abnormal. POC V Oxyhgb (test code = 3014570447) 61.8 % 95-100 L POC V O2 Sat (leidy) (test code = 4740044474) 63.7 % 40.0-70.0 POC V O2 Sat (calc) (test code = 2711-0) 66 % 40-70 POC V HCO3 (test code = 30404-7) 24 mmol/L 22-26 POC V Carboxy (test code = 9547442798) 2.4 % Non-Smoker: 0.0-2.0 Smoker: 0.0-9.0 H Reference RangeNon-Smoker 0.0-2.0 ? ?Smoker 0.0-9.0 POC V BE (test code = 1927-3) -1 mmol/L -2-2 POC V Methgb (test code = 2617-9) 0.7 % 0.0-1.4 POC V Hgb Tot (test code = 11879-0) 8.6 g/dL 11.2-15.7 L POC V Hct (calc) (test code = 96482-8) 26 % 34.1-44.9 L POC V Na (test code = 55614-5) See_Comment [Automated messa ge] The system which generated this result transmitted reference range: 135 - 145 mEq/L. The reference range was not used to interpret this result as normal/abnormal. POC V K (test code = 78407-7) See_Comment [Automated messa ge] The system which generated this result transmitted reference range: 3.5 - 5.1 mEq/L. The reference range was not used to interpret this result as normal/abnormal. POC V Cl (test code = 37345-7) See_Comment [Automated [employer]] The system which generated this result transmitted reference range: 95 - 109 mEq/L. The reference range was not used to interpret this result as normal/abnormal. POC V Glu (test code = 70219-0) 140 mg/dL 70-99 H POC V LA (test code = 2519-7) See_Comment [Automated [employer]] The system which generated this result transmitted reference range: 0.5 - 2.2 mMol/L. The reference range was not used to interpret this result as normal/abnormal. POC V Ca Ion (test code = 73093-4) See_Comment [Automated [employer]] The system which generated this result transmitted reference range: 1.05 - 1.25 mMol/L. The reference range was not used to interpret this result as normal/abnormal. POC V Ca Ion (7.4) (test code = 7030564070) See_Comment [Automated [employer]] The system which generated this result transmitted reference range: 1.05 - 1.25 mMol/L. The reference range was not used to interpret this result as normal/abnormal. POC V Mode #1 (test code = 7651728950) NC 2 LITERS POC Performing Location (test code = 5265562765) BG CLIN Lab Interpretation (test code = 35562-7) Abnormal [facility] RBC: 1 Trckv7502-20-04 18:04:00* Test Item Value Reference Range Interpretation Comme [facility] Product Code (test code = 25) [id number] Unit Number (test code = 1624) [id number] Unit ABO (test code = 8890548) O Unit RH (test code = 1130827) POS Crossmatch (test code = 0102789) Compatible Dispense Status (test code = 1623) Released Blood Expiration Date (test code = 530) Product Blood Type (test cod e = 532) Unit Volume (test code = 1322-7) 331 mL [facility] [place] [facility]are RBC: 1 Vfxie8667-42-85 18:03:59* Test Item Value Reference Range Interpretation Comme [facility] Product Code (test code = 25) [id number] Unit Number (test code = 1624) [id number] Unit ABO (test code = 4191189) O Unit RH (test code = 3206986) POS Crossmatch (test code = 5927318) Compatible Dispense Status (test code = 1623) Released Blood Expiration Date (test code = 530) Product Blood Type (test cod e = 532) Unit Volume (test code = 1322-7) 281 mL [facility] Arterial Blood Gas and Comprehensive Ignjr8309-83-56 18:02:27* Test Item Value Reference Range Interpretation Comme nts POC A Temp (test code = 2852257475) DegC POC A Source (test code = 8282774106) ART POC A pH (test code = 2744-1) 7.35-7.45 POC A PCO2 (test code = 2018-) See_Comment L [Automated messa ge] The system which generated this result transmitted reference range: 35 - 45 mmHg. The reference range was not used to interpret this result as normal/abnormal. POC A PO2 (test code = 2703-7) See_Comment [Automated messa ge] The system which generated this result transmitted reference range: 80 - 100 mmHg. The reference range was not used to interpret this result as normal/abnormal. POC A HCO3 (test code = 1960-4) See_Comment [Automated messa ge] The system which generated this result transmitted reference range: 22 - 26 mMol/L. The reference range was not used to interpret this result as normal/abnormal. POC A BE (test code = 1925-7) See_Comment [Automated messa ge] The system which generated this result transmitted reference range: -2 - 2 mMol/L. The reference range was not used to interpret this result as normal/abnormal. POC A O2 Sat (calc) (test code = 2708-6) 99.3 % 95-100 POC A O2 Sat (leidy) (test code = 7913093714) 99.8 % 95.0-100.0 POC A Oxyhgb (test code = 1947871220) 96.8 % 95-100 POC A Carboxy (test code = 0233505972) 1.9 % Non-Smoker: 0.0-2.0 Smoker: 0.0-9.0 Reference RangeNon-Smoker 0.0-2.0 ? ?Smoker 0.0-9.0 POC A Methgb (test code = 2615-3) 1.1 % 0.0-1.4 POC A Hgb Tot (test code = 52079-5) 8.5 g/dL 11.2-15.7 L POC A Hct (calc) (test code = 45280-0) 26 % 34.1-44.9 L POC A Na (test code = 45391-1) See_Comment [Automated messa ge] The system which generated this result transmitted reference range: 135 - 145 mEq/L. The reference range was not used to interpret this result as normal/abnormal. POC A K (test code = 5426526) See_Comment [Automated messa ge] The system which generated this result transmitted reference range: 3.5 - 5.1 mEq/L. The reference range was not used to interpret this result as normal/abnormal. POC Chloride (test code = 1363146) See_Comment [Automated messa ge] The system which generated this result transmitted reference range: 95 - 109 mEq/L. The reference range was not used to interpret this result as normal/abnormal. POC A Glu (test code = 2339-0) 135 mg/dL 70-99 H POC A LA (test code = 224) See_Comment [Automated messa ge] The system which generated this result transmitted reference range: 0.5 - 2.2 mMol/L. The reference range was not used to interpret this result as normal/abnormal. POC A Ca Ion (test code = 04135-7) See_Comment [Automated [employer]] The system which generated this result transmitted reference range: 1.05 - 1.25 mMol/L. The reference range was not used to interpret this result as normal/abnormal. POC A Ca Ion (7.4) (test code = 4086821180) 1.18 mmol/L 1.05-1.25 POC A Mode #1 (test code = 6941389925) 6 LITERS POC Performing Location (test code = 0666855442) [facility] CL[facility] Lab Interpretation (test code = 77746-1) Abnormal [facility] EpicTransthoracic echo (TTE) pxnlgha9944-64-26 14:58:00* Test Item Value Reference Range Interpretation Comme nts AV pk grad (test code = 1816237181) mmHg AV VTI (test code = 1527880643) 9.5 cm AV pk berny (test code = 2800955142) 0.53 m/s AV mn grad (test code = 5875615220) mmHg AV mn berny (test code = 2340552068) 0.33 m/s BSA (test code = 8560386125) 1.66 m2 Radiology Study observation (narrative) (test code = 08823-1) FLOYD (test code = FLOYD) [facility] Obxnfui6419-47-79 12:48:41* Test Item Value Reference Range Interpretation Comme nts POC Glu (test code = 4092228566) 142 mg/dL 70-99 H POC Performing Location (nima t code = 8427730590) HV5 HEART Lab Interpretation (test cod e = 80885-4) Abnormal [facility] Venous Blood Gas and Comprehensive Sjbwa4141-79-15 04:17:54* Test Item Value Reference Range Interpretation Comme nts POC V Temp (test code = 8417059579) DegC POC V Source (test code = 4375522046) OLIVA POC V PO2 (test code = 2705-2) See_Comment [Automated messa ge] The system which generated this result transmitted reference range: 20 - 49 mmHg. The reference range was not used to interpret this result as normal/abnormal. POC V pH (test code = 2746-6) 7.28-7.42 H POC V PCO2 (test code = 2020-) See_Comment L [Automated messa ge] The system which generated this result transmitted reference range: 38 - 52 mmHg. The reference range was not used to interpret this result as normal/abnormal. POC V Oxyhgb (test code = 7973898108) 79.9 % 95-100 L POC V O2 Sat (leidy) (test code = 6255349126) 82.3 % 40.0-70.0 H POC V O2 Sat (calc) (test code = 2711-0) 85 % 40-70 H POC V HCO3 (test code = 18471-6) 24 mmol/L 22-26 POC V Carboxy (test code = 3288488268) 2.1 % Non-Smoker: 0.0-2.0 Smoker: 0.0-9.0 H Reference RangeNon-Smoker 0.0-2.0 ? ?Smoker 0.0-9.0 POC V BE (test code = 1927-3) 0 mmol/L -2-2 POC V Methgb (test code = 2617-9) 0.7 % 0.0-1.4 POC V Hgb Tot (test code = 25978-2) 9.2 g/dL 11.2-15.7 L POC V Hct (calc) (test code = 71256-6) 28 % 34.1-44.9 L POC V Na (test code = 23601-6) See_Comment [Automated messa ge] The system which generated this result transmitted reference range: 135 - 145 mEq/L. The reference range was not used to interpret this result as normal/abnormal. POC V K (test code = 01504-2) See_Comment [Automated messa ge] The system which generated this result transmitted reference range: 3.5 - 5.1 mEq/L. The reference range was not used to interpret this result as normal/abnormal. POC V Cl (test code = 93690-8) See_Comment H [Automated messa ge] The system which generated this result transmitted reference range: 95 - 109 mEq/L. The reference range was not used to interpret this result as normal/abnormal. POC V Glu (test code = 14814-9) 142 mg/dL 70-99 H POC V LA (test code = 2519-7) See_Comment [Automated messa ge] The system which generated this result transmitted reference range: 0.5 - 2.2 mMol/L. The reference range was not used to interpret this result as normal/abnormal. POC V Ca Ion (test code = 23140-4) See_Comment [Automated messa ge] The system which generated this result transmitted reference range: 1.05 - 1.25 mMol/L. The reference range was not used to interpret this result as normal/abnormal. POC V Ca Ion (7.4) (test code = 3493343216) See_Comment [Automated messa ge] The system which generated this result transmitted reference range: 1.05 - 1.25 mMol/L. The reference range was not used to interpret this result as normal/abnormal. POC Performing Location (test code = 5829943770) [facility] Lab Interpretation (test code = 78581-7) Abnormal [facility] [id number] 21:17:57* Test Item Value Reference Range Interpretation Comme nts POC Glu (test code = 5364731356) 146 mg/dL 70-99 H POC Performing Location (nima t code = 3212751317) [facility] HEART Lab Interpretation (test cod e = 51279-9) Abnormal [facility] Arterial Blood Gas and Comprehensive [id number] 17:23:08* Test Item Value Reference Range Interpretation Comme nts POC A Temp (test code = 8257859929) DegC POC A Source (test code = 6911523818) ART POC A pH (test code = 2744-1) 7.35-7.45 POC A PCO2 (test code = 2019-) See_Comment L [Automated messa ge] The system which generated this result transmitted reference range: 35 - 45 mmHg. The reference range was not used to interpret this result as normal/abnormal. POC A PO2 (test code = 2703-7) See_Comment L [Automated messa ge] The system which generated this result transmitted reference range: 80 - 100 mmHg. The reference range was not used to interpret this result as normal/abnormal. POC A HCO3 (test code = 1960-4) See_Comment L [Automated messa ge] The system which generated this result transmitted reference range: 22 - 26 mMol/L. The reference range was not used to interpret this result as normal/abnormal. POC A BE (test code = 1925-7) See_Comment L [Automated messa ge] The system which generated this result transmitted reference range: -2 - 2 mMol/L. The reference range was not used to interpret this result as normal/abnormal. POC A O2 Sat (calc) (test code = 2708-6) 95.5 % 95-100 POC A O2 Sat (leidy) (test code = 2540648839) 97.5 % 95.0-100.0 POC A Oxyhgb (test code = 6904394690) 94.7 % 95-100 L POC A Carboxy (test code = 5488571789) 1.6 % Non-Smoker: 0.0-2.0 Smoker: 0.0-9.0 Reference RangeNon-Smoker 0.0-2.0 ? ?Smoker 0.0-9.0 POC A Methgb (test code = 2615-3) 1.3 % 0.0-1.4 POC A Hgb Tot (test code = 49367-4) 9.7 g/dL 11.2-15.7 L POC A Hct (calc) (test code = 72509-0) 29 % 34.1-44.9 L POC A Na (test code = 15227-1) See_Comment L [Automated messa ge] The system which generated this result transmitted reference range: 135 - 145 mEq/L. The reference range was not used to interpret this result as normal/abnormal. POC A K (test code = 1477479) See_Comment [Automated messa ge] The system which generated this result transmitted reference range: 3.5 - 5.1 mEq/L. The reference range was not used to interpret this result as normal/abnormal. POC Chloride (test code = 0541446) See_Comment [Automated messa ge] The system which generated this result transmitted reference range: 95 - 109 mEq/L. The reference range was not used to interpret this result as normal/abnormal. POC A Glu (test code = 2339-0) 178 mg/dL 70-99 H POC A LA (test code = 224) See_Comment [Automated messa ge] The system which generated this result transmitted reference range: 0.5 - 2.2 mMol/L. The reference range was not used to interpret this result as normal/abnormal. POC A Ca Ion (test code = 04009-5) See_Comment [Automated messa ge] The system which generated this result transmitted reference range: 1.05 - 1.25 mMol/L. The reference range was not used to interpret this result as normal/abnormal. POC A Ca Ion (7.4) (test code = 9867412699) 1.15 mmol/L 1.05-1.25 POC Performing Location (test code = 4282016596) [facility] Lab Interpretation (test code = 51646-7) Abnormal [facility] Arterial Blood Gas and Comprehensive Pggdv8994-90-55 12:39:07* Test Item Value Reference Range Interpretation Comme nts POC A Temp (test code = 1320604668) DegC POC A Source (test code = 5928871109) ART POC A pH (test code = 2744-1) 7.35-7.45 POC A PCO2 (test code = 2018-8) See_Comment L [Automated messa ge] The system which generated this result transmitted reference range: 35 - 45 mmHg. The reference range was not used to interpret this result as normal/abnormal. POC A PO2 (test code = 2703-7) See_Comment [Automated messa ge] The system which generated this result transmitted reference range: 80 - 100 mmHg. The reference range was not used to interpret this result as normal/abnormal. POC A HCO3 (test code = 1960-4) See_Comment L [Automated messa ge] The system which generated this result transmitted reference range: 22 - 26 mMol/L. The reference range was not used to interpret this result as normal/abnormal. POC A BE (test code = 1925-7) See_Comment L [Automated messa ge] The system which generated this result transmitted reference range: -2 - 2 mMol/L. The reference range was not used to interpret this result as normal/abnormal. POC A O2 Sat (calc) (test code = 2708-6) 98.2 % 95-100 POC A O2 Sat (leidy) (test code = 4535243289) 99.6 % 95.0-100.0 POC A Oxyhgb (test code = 5937581753) 96.3 % 95-100 POC A Carboxy (test code = 2339809133) 1.9 % Non-Smoker: 0.0-2.0 Smoker: 0.0-9.0 Reference RangeNon-Smoker 0.0-2.0 ? ?Smoker 0.0-9.0 POC A Methgb (test code = 2615-3) 1.4 % 0.0-1.4 POC A Hgb Tot (test code = 75944-7) 9.9 g/dL 11.2-15.7 L POC A Hct (calc) (test code = 95823-5) 30 % 34.1-44.9 L POC A Na (test code = 86280-5) See_Comment L [Automated messa ge] The system which generated this result transmitted reference range: 135 - 145 mEq/L. The reference range was not used to interpret this result as normal/abnormal. POC A K (test code = 4104833) See_Comment [Automated messa ge] The system which generated this result transmitted reference range: 3.5 - 5.1 mEq/L. The reference range was not used to interpret this result as normal/abnormal. POC Chloride (test code = 8614357) See_Comment [Automated messa ge] The system which generated this result transmitted reference range: 95 - 109 mEq/L. The reference range was not used to interpret this result as normal/abnormal. POC A Glu (test code = 2339-0) 189 mg/dL 70-99 H POC A LA (test code = 224) See_Comment [Automated messa ge] The system which generated this result transmitted reference range: 0.5 - 2.2 mMol/L. The reference range was not used to interpret this result as normal/abnormal. POC A Ca Ion (test code = 59661-1) See_Comment [Automated messa ge] The system which generated this result transmitted reference range: 1.05 - 1.25 mMol/L. The reference range was not used to interpret this result as normal/abnormal. POC A Ca Ion (7.4) (test code = 6130064829) 1.16 mmol/L 1.05-1.25 POC Performing Location (test code = 4179803678) [facility] Lab Interpretation (test code = 74753-0) Abnormal [facility] Arterial Blood Gas and Basic Einsm1606-76-15 09:13:38* Test Item Value Reference Range Interpretation Comme nts POC A Temp (test code = 9562434472) DegC POC A Source (test code = 2191391219) ART POC A pH (test code = 2744-1) 7.35-7.45 POC A PCO2 (test code = 2019-8) See_Comment L [Automated messa ge] The system which generated this result transmitted reference range: 35 - 45 mmHg. The reference range was not used to interpret this result as normal/abnormal. POC A PO2 (test code = 2703-7) See_Comment L [Automated messa ge] The system which generated this result transmitted reference range: 80 - 100 mmHg. The reference range was not used to interpret this result as normal/abnormal. POC A HCO3 (test code = 1960-4) See_Comment [Automated messa ge] The system which generated this result transmitted reference range: 22 - 26 mMol/L. The reference range was not used to interpret this result as normal/abnormal. POC A BE (test code = 1925-7) See_Comment [Automated messa ge] The system which generated this result transmitted reference range: -2 - 2 mMol/L. The reference range was not used to interpret this result as normal/abnormal. POC A O2 Sat (calc) (test code = 2708-6) 92.9 % 95-100 L POC A Hgb Tot (test code = 37834-1) 9.9 g/dL 11.2-15.7 L POC A Hct (calc) (test code = 08438-0) 30 % 34.1-44.9 L POC A Na (test code = 58435-7) See_Comment L [Automated messa ge] The system which generated this result transmitted reference range: 135 - 145 mEq/L. The reference range was not used to interpret this result as normal/abnormal. POC A K (test code = 3570662) See_Comment [Automated messa ge] The system which generated this result transmitted reference range: 3.5 - 5.1 mEq/L. The reference range was not used to interpret this result as normal/abnormal. POC Chloride (test code = 5729573) See_Comment [Automated messa ge] The system which generated this result transmitted reference range: 95 - 109 mEq/L. The reference range was not used to interpret this result as normal/abnormal. POC A Glu (test code = 2339-0) 249 mg/dL 70-99 H POC A LA (test code = 224) See_Comment [Automated messa ge] The system which generated this result transmitted reference range: 0.5 - 2.2 mMol/L. The reference range was not used to interpret this result as normal/abnormal. POC A Ca Ion (test code = 37847-1) See_Comment [Automated messa ge] The system which generated this result transmitted reference range: 1.05 - 1.25 mMol/L. The reference range was not used to interpret this result as normal/abnormal. POC A Ca Ion (7.4) (test code = 5199746693) 1.2 mmol/L 1.05-1.25 POC Performing Location (test code = 8543619994) [facility] Lab Interpretation (test code = 99383-2) Abnormal [facility] Venous Blood Gas and Comprehensive Tpbea2530-96-05 04:22:37* Test Item Value Reference Range Interpretation Comme nts POC V Temp (test code = 2338968179) DegC POC V Source (test code = 4199314352) OLIVA POC V PO2 (test code = 2705-2) See_Comment [Automated messa ge] The system which generated this result transmitted reference range: 20 - 49 mmHg. The reference range was not used to interpret this result as normal/abnormal. POC V pH (test code = 2746-6) 7.28-7.42 POC V PCO2 (test code = 1-) See_Comment L [Automated messa ge] The system which generated this result transmitted reference range: 38 - 52 mmHg. The reference range was not used to interpret this result as normal/abnormal. POC V Oxyhgb (test code = 8170852646) 65.9 % 95-100 L POC V O2 Sat (leidy) (test code = 8516013421) 67.7 % 40.0-70.0 POC V O2 Sat (calc) (test code = 2711-0) 75 % 40-70 H POC V HCO3 (test code = 91903-2) 22 mmol/L 22-26 POC V Carboxy (test code = 8771321782) 1.7 % Non-Smoker: 0.0-2.0 Smoker: 0.0-9.0 Reference RangeNon-Smoker 0.0-2.0 ? ?Smoker 0.0-9.0 POC V BE (test code = 1927-3) -2 mmol/L -2-2 POC V Methgb (test code = 2617-9) 1 % 0.0-1.4 POC V Hgb Tot (test code = 97914-2) 10.1 g/dL 11.2-15.7 L POC V Hct (calc) (test code = 37884-4) 30 % 34.1-44.9 L POC V Na (test code = 53638-0) See_Comment L [Automated messa ge] The system which generated this result transmitted reference range: 135 - 145 mEq/L. The reference range was not used to interpret this result as normal/abnormal. POC V K (test code = 92627-6) See_Comment [Automated messa ge] The system which generated this result transmitted reference range: 3.5 - 5.1 mEq/L. The reference range was not used to interpret this result as normal/abnormal. POC V Cl (test code = 14660-7) See_Comment [Automated messa ge] The system which generated this result transmitted reference range: 95 - 109 mEq/L. The reference range was not used to interpret this result as normal/abnormal. POC V Glu (test code = 82908-9) 148 mg/dL 70-99 H POC V LA (test code = 2519-7) See_Comment [Automated messa ge] The system which generated this result transmitted reference range: 0.5 - 2.2 mMol/L. The reference range was not used to interpret this result as normal/abnormal. POC V Ca Ion (test code = 48457-8) See_Comment [Automated messa ge] The system which generated this result transmitted reference range: 1.05 - 1.25 mMol/L. The reference range was not used to interpret this result as normal/abnormal. POC V Ca Ion (7.4) (test code = 4164138824) See_Comment [Automated messa ge] The system which generated this result transmitted reference range: 1.05 - 1.25 mMol/L. The reference range was not used to interpret this result as normal/abnormal. POC Performing Location (test code = 7400488104) [facility] Lab Interpretation (test code = 79614-6) Abnormal [facility] Arterial Blood Gas and Comprehensive Yfnwb9680-03-63 00:20:06* Test Item Value Reference Range Interpretation Comme nts POC A Temp (test code = 5957939208) DegC POC A Source (test code = 5152455154) ART POC A pH (test code = 2744-1) 7.35-7.45 POC A PCO2 (test code = 2019-8) See_Comment L [Automated messa ge] The system which generated this result transmitted reference range: 35 - 45 mmHg. The reference range was not used to interpret this result as normal/abnormal. POC A PO2 (test code = 2703-7) See_Comment L [Automated messa ge] The system which generated this result transmitted reference range: 80 - 100 mmHg. The reference range was not used to interpret this result as normal/abnormal. POC A HCO3 (test code = 1960-4) See_Comment [Automated messa ge] The system which generated this result transmitted reference range: 22 - 26 mMol/L. The reference range was not used to interpret this result as normal/abnormal. POC A BE (test code = 1925-7) See_Comment [Automated messa ge] The system which generated this result transmitted reference range: -2 - 2 mMol/L. The reference range was not used to interpret this result as normal/abnormal. POC A O2 Sat (calc) (test code = 2708-6) 95 % 95-100 POC A O2 Sat (leidy) (test code = 7253473086) 97.8 % 95.0-100.0 POC A Oxyhgb (test code = 8042287193) 96 % 95-100 POC A Carboxy (test code = 9522045400) 1.7 % Non-Smoker: 0.0-2.0 Smoker: 0.0-9.0 Reference RangeNon-Smoker 0.0-2.0 ? ?Smoker 0.0-9.0 POC A Methgb (test code = 2615-3) 0.0-1.4 POC A Hgb Tot (test code = 56541-5) 10.3 g/dL 11.2-15.7 L POC A Hct (calc) (test code = 86533-3) 31 % 34.1-44.9 L POC A Na (test code = 96212-4) See_Comment L [Automated messa ge] The system which generated this result transmitted reference range: 135 - 145 mEq/L. The reference range was not used to interpret this result as normal/abnormal. POC A K (test code = 2980813) See_Comment [Automated messa ge] The system which generated this result transmitted reference range: 3.5 - 5.1 mEq/L. The reference range was not used to interpret this result as normal/abnormal. POC Chloride (test code = 9431538) See_Comment [Automated messa ge] The system which generated this result transmitted reference range: 95 - 109 mEq/L. The reference range was not used to interpret this result as normal/abnormal. POC A Glu (test code = 2339-0) 172 mg/dL 70-99 H POC A LA (test code = 224) See_Comment [Automated messa ge] The system which generated this result transmitted reference range: 0.5 - 2.2 mMol/L. The reference range was not used to interpret this result as normal/abnormal. POC A Ca Ion (test code = 22734-4) See_Comment [Automated messa ge] The system which generated this result transmitted reference range: 1.05 - 1.25 mMol/L. The reference range was not used to interpret this result as normal/abnormal. POC A Ca Ion (7.4) (test code = 0451159144) 1.21 mmol/L 1.05-1.25 POC A Mode #1 (test code = 4712166342) VAPO 20L POC A %FIO2 (test code = 8183268342) 35 % POC Performing Location (test code = 0025474568) [facility] Lab Interpretation (test code = 13286-6) Abnormal [facility] RBC: 1 Wfyav1343-80-95 20:13:47* Test Item Value Reference Range Interpretation Comme [facility] Product Code (test code = 25) [id number] Unit Number (test code = 1624) [id number] Unit ABO (test code = 8421552) O Unit RH (test code = 4043864) POS Crossmatch (test code = 2499380) Compatible Dispense Status (test code = 1623) Transfused Blood Expiration Date (test code = 530) Product Blood Type (test cod e = 532) Unit Volume (test code = 1322-7) 300 mL [facility] Other Blood Gas and Comprehensive Jjqzj8891-04-15 18:15:07* Test Item Value Reference Range Interpretation Comme nts POC O Temp (test code = 9476356363) DegC POC O Source (test code = 1491733855) O POC O pH (test code = 5715662777) 7.35-7.45 POC O PCO2 (test code = 6260691687) See_Comment L [Automated messa ge] The system which generated this result transmitted reference range: 35 - 45 mmHg. The reference range was not used to interpret this result as normal/abnormal. POC O PO2 (test code = 9981306735) See_Comment [Automated messa ge] The system which generated this result transmitted reference range: 80 - 100 mmHg. The reference range was not used to interpret this result as normal/abnormal. POC O HCO3 (test code = 0075380931) See_Comment L [Automated messa ge] The system which generated this result transmitted reference range: 22 - 26 mMol/L. The reference range was not used to interpret this result as normal/abnormal. POC O BE (test code = 9075909849) See_Comment L [Automated messa ge] The system which generated this result transmitted reference range: -2 - 2 mMol/L. The reference range was not used to interpret this result as normal/abnormal. POC O O2 Sat (calc) (test code = 3597017791) 98.3 % 95.0-100.0 POC O O2 Sat (leidy) (test code = 0965233623) 99.7 % 95-98 POC O Oxyhgb (test code = 9777982278) 96.6 % 95-100 POC O Carboxy (test code = 3319069127) 1.9 % Non-Smoker: 0.0-2.0 Smoker: 0.0-9.0 Reference RangeNon-Smoker 0.0-2.0 ? ?Smoker 0.0-9.0 POC O Methgb (test code = 0791390404) 1.2 % 0-1.4 POC O Hgb Tot (test code = 6160355171) 9.5 g/dL 11.2-15.7 L POC O Hct (calc) (test code = 78595-9) 29 % 34.1-44.9 L POC O Na (test code = 9523579406) See_Comment [Automated messa ge] The system which generated this result transmitted reference range: 135 - 145 mEq/L. The reference range was not used to interpret this result as normal/abnormal. POC O K (test code = 2571402766) See_Comment [Automated messa ge] The system which generated this result transmitted reference range: 3.5 - 5.1 mEq/L. The reference range was not used to interpret this result as normal/abnormal. POC O Cl (test code = 71394-6) See_Comment [Automated messa ge] The system which generated this result transmitted reference range: 95 - 109 mEq/L. The reference range was not used to interpret this result as normal/abnormal. POC O Glu (test code = 70754-9) 78 mg/dL 70-99 POC O LA (test code = 2518-9) See_Comment [Automated messa ge] The system which generated this result transmitted reference range: 0.5 - 2.2 mMol/L. The reference range was not used to interpret this result as normal/abnormal. POC O Ca Ion (test code = 3645786117) See_Comment [Automated me ssage] The system which generated this result transmitted reference range: 1.05 - 1.25 mMol/L. The reference range was not used to interpret this result as normal/abnormal. POC O Ca Ion (7.4) (test code = 7374369744) 1.18 mmol/L 1.05-1.25 POC O Mode #1 (test code = 2400065566) 20L VPTRM POC O Spon R (bpm) (test code = 7269265626) bpm POC O %FIO2 (test code = 4202765415) 40 % POC Performing Location (test code = 7649046815) [facility] Lab Interpretation (test code = 25909-5) [facility] mgvitnuc4538-99-39 15:50:08* Test Item Value Reference Range Interpretation Comme nts LVOT Vmax/AV Vmax (test code = 8196518572) 0.87 {ratio} Ao Root diam diastole (test code = 4611570263) 30 mm LVOT Vmean (test code = 0628457087) 0.58 m/s TR pk grad (test code = 3197545644) mmHg LV est EF (test code = 8166500061) 33 % MV A pk berny (test code = 7093688100) 0.84 m/s MV PHT (test code = 7328162828) 62 ms MV E pk berny (test code = 7490878473) 1.24 m/s AV pk grad (test code = 3543932316) mmHg LV stroke vol (test code = 7055605631) 45.55 ml AV VTI (test code = 2000649272) 17.2 cm AV pk berny (test code = 4590329146) 1 m/s LVOT VTI (test code = 2130005892) 14.5 cm LVOT pk berny (test code = 6110386600) 0.87 m/s LVOT area (test code = 3330342282) 3.14 cm2 LVOT diam (test code = 6197272870) 20 mm MV DT (test code = 4079649798) 212 ms MV e' lateral berny (test code = 8244664099) 10.9 cm/s MV E/A ratio (test code = 9864811037) MV area PHT (test code = 0816065649) 3.55 cm2 LVOT pk grad (test code = 9176031263) mmHg AV mn grad (test code = 6200700247) mmHg MV E/e' septal (test code = 7872739617) TR pk berny (test code = 9108273542) 2.57 m/s AV area pk berny (test code = 9342681885) 2.73 cm2 AV area cont VTI (test code = 2004458533) 2.65 cm2 LVOT mn grad (test code = 6257557928) mmHg AV mn berny (test code = 9551419963) 0.69 m/s LVPWd (test code = 7308302729) 11 mm LA size (test code = 1092019949) 41 mm Fractional Shortening 2D (test code = 6588609095) 15 % LVIDs (test code = 9986786905) 37 mm IVSd (test code = 5571307177) 11 mm LVIDd (test code = 7726729346) 44 mm MV E/e' lateral (test code = 2212518) MV e' septal berny (test code = 8267340) 8.7 cm/s LV ESV 2D (test code = 8959680) 59.64 mL LV EDV 2D (test code = 8379772) 88.63 mL IVSd 2D (test code = 1718558) 11.422925419132860 cm BSA (test code = 7645009595) 1.66 m2 LV stroke vol index (test code = 41850684) 27.61 ml/m2 LV LVIDd index (test code = 95632380) 26.79 mm/m2 LVIDs index (test code = 24127777) 22.67 mm/m2 LV ESV index 2D (test code = 4893265099) 36.15 ml/m2 LV EDV index 2D (test code = 9360250231) 53.72 ml/m2 LV RWT 2D (test code = 0480693198) LV mass 2D (test code = 8400897449) 170.13 g LV mass index 2D (test code = 3592318130) 103.12 g/m2 LA diam systole Index (test code = 5956983122) 24.85 mm/m2 RVOT VTI (test code = 4141154104) 19.5 cm RVOT pk berny (test code = 6842418379) 0.98 m/s RVOT Vmean (test code = 0077905056) 0.7 m/s AV area index (test code = 4598404316) 1.61 cm2/m2 LV stroke vol index (test code = 1712365277) 27.61 mL/m2 PV mn grad (test code = 7954020323) mmHg PV pk berny (test code = 7797624515) 1.18 m/s PV pk grad (test code = 3125338947) mmHg PV VTI (test code = 0646633) 25.6 cm RVOT mn grad (test code = 6593513789) mmHg RVOT pk grad (test code = 9207713393) mmHg PV mn berny (test code = 0652923504) 0.93 m/s AVAI (Vmax) BSA (test code = 1500623367) 1.66 cm2/m2 MV avg E/e' (test code = 2513377822) AV berny ratio (test code = 9292532638) LV mass size 1 (test code = 1484932396) 170.1 cm LA area A4C (test code = 5844785630) 19.31 cm2 LA Vol I (A4C) BSA (test code = 7272079239) 32.05 ml/m2 TAPSE (test code = 6848909476) 23 mm RA vol index (test code = 6087589498) 22.1 mL/m2 LA vol index (test code = 0296319279) 43.03 mL/m2 LA vol BP (test code = 8963721745) 70.99 ml LA area A2C (test code = 2618596204) 25.62 cm2 LA Vol I BSA (test code = 5596536140) 58.29 ml/m2 LA ESV A2C (test code = 9164628062) 96.822761343788850 mL LA ESV A4C (test code = 6445652880) 96.698487693547646 mL RA vol (test code = 0738658335) 22 mL/m2 RVSP (test code = 0948617) mmHg Est RA pressure (test code = 8192322250) mmHg sPAP (test code = 7135930658) mmHg RAP (test code = 8575383562) mmHg LV biplane EF (test code = 3367578360) 38 % LV A2C EF (test code = 7245181532) 41 % LV A4C EF (test code = 5876878688) 31 % LV SI (BP) (test code = 7513101665) 29.82 ml/m2 LV SI (A2C) (test code = 3022173740) 29.49 ml/m2 LV SI (A4C) (test code = 8506689056) 23.65 ml/m2 LV SV (BP) (test code = 8227154041) 49.19 ml LV SI (A2C) (test code = 4543974834) 48.65 ml LV SV (A4C) (test code = 4232276515) 39.02 ml LV ESV BP (test code = 6715689532) 80.15 mL LV ESV index BP (test code = 7857733573) 48.58 mL/m2 LV ESV A2C (test code = 4370147391) 71.04 mL LV ESV index A2C (test code = 5327534801) 43.06 ml/m2 LV EDV BP (test code = 5581227002) 129.35 mL LV ESV A4C (test code = 6083825713) 86.89 mL LV EDV index BP (test code = 8156976487) 78.4 mL/m2 LV ESV index A4C (test code = 4604011717) 52.67 ml/m2 LV EDV A2C (test code = 4611998898) 119.69 mL LV EDV index A2C (test code = 4827571752) LV EDV A4C (test code = 4488930651) 125.91 mL LV EDV index A4C (test code = 9007973707) 76.32 ml/m2 LVLd (A2C) (test code = 0213057210) 79.47 mm LVLd (A4C) (test code = 4922338991) 88.77 mm LVLs (A2C) (test code = 8658548095) 80.02 mm LVLs (A4C) (test code = 1742949628) 75.27 mm Radiology Study observation (narrative) (test code = 10511-5) FLOYD (test code = FLOYD) [facility] Other Blood Gas and Comprehensive Tdzii8649-35-62 12:46:11* Test Item Value Reference Range Interpretation Comme nts POC O Temp (test code = 2838852925) DegC POC O Source (test code = 0904542153) O POC O pH (test code = 4729961555) 7.35-7.45 POC O PCO2 (test code = 6528362872) See_Comment L [Automated messa ge] The system which generated this result transmitted reference range: 35 - 45 mmHg. The reference range was not used to interpret this result as normal/abnormal. POC O PO2 (test code = 8738835511) See_Comment L [Automated messa ge] The system which generated this result transmitted reference range: 80 - 100 mmHg. The reference range was not used to interpret this result as normal/abnormal. POC O HCO3 (test code = 7922563299) See_Comment [Automated messa ge] The system which generated this result transmitted reference range: 22 - 26 mMol/L. The reference range was not used to interpret this result as normal/abnormal. POC O BE (test code = 4920502695) See_Comment [Automated messa ge] The system which generated this result transmitted reference range: -2 - 2 mMol/L. The reference range was not used to interpret this result as normal/abnormal. POC O O2 Sat (calc) (test code = 3510271794) 94.2 % 95.0-100.0 L POC O O2 Sat (leidy) (test code = 3761107783) 97.5 % 95-98 POC O Oxyhgb (test code = 1992960649) 94.7 % 95-100 L POC O Carboxy (test code = 7739863279) 1.9 % Non-Smoker: 0.0-2.0 Smoker: 0.0-9.0 Reference RangeNon-Smoker 0.0-2.0 ? ?Smoker 0.0-9.0 POC O Methgb (test code = 2395059835) 0.9 % 0-1.4 POC O Hgb Tot (test code = 7307904860) 9.6 g/dL 11.2-15.7 L POC O Hct (calc) (test code = 46902-7) 29 % 34.1-44.9 L POC O Na (test code = 1578724162) See_Comment L [Automated messa ge] The system which generated this result transmitted reference range: 135 - 145 mEq/L. The reference range was not used to interpret this result as normal/abnormal. POC O K (test code = 7336736596) See_Comment [Automated [employer] ge] The system which generated this result transmitted reference range: 3.5 - 5.1 mEq/L. The reference range was not used to interpret this result as normal/abnormal. POC O Cl (test code = 07410-3) See_Comment [Automated [employer] ge] The system which generated this result transmitted reference range: 95 - 109 mEq/L. The reference range was not used to interpret this result as normal/abnormal. POC O Glu (test code = 40647-6) 131 mg/dL 70-99 H POC O LA (test code = 2518-9) See_Comment [Automated messa ge] The system which generated this result transmitted reference range: 0.5 - 2.2 mMol/L. The reference range was not used to interpret this result as normal/abnormal. POC O Ca Ion (test code = 3275439293) See_Comment [Automated [employer] ssage] The system which generated this result transmitted reference range: 1.05 - 1.25 mMol/L. The reference range was not used to interpret this result as normal/abnormal. POC O Ca Ion (7.4) (test code = 8302181433) 1.22 mmol/L 1.05-1.25 POC O Mode #1 (test code = 7724082336) 20L VPTRM POC O Spon R (bpm) (test code = 6272500457) bpm POC O %FIO2 (test code = 8893773895) 40 % POC Performing Location (test code = 2844398055) [facility] Lab Interpretation (test code = 66931-5) [facility] Scjpe3246-72-09 10:32:52* Test Item Value Reference Range Interpretation Comme nts Product Code (test code = 25) [id number] Unit Number (test code = 1624) [id number] Unit ABO (test code = 2885763) O Unit RH (test code = 3322502) NEG Crossmatch (test code = 9027902) Compatible Dispense Status (test code = 1623) Transfused Blood Expiration Date (test code = 530) Product Blood Type (test cod e = 532) Unit Volume (test code = 1322-7) 300 mL [facility] Other Blood Gas and Comprehensive Iaauc6565-04-25 08:07:46* Test Item Value Reference Range Interpretation Comme nts POC O Temp (test code = 8809215448) DegC POC O Source (test code = 9191014146) O POC O pH (test code = 8280079036) 7.35-7.45 POC O PCO2 (test code = 7061112077) See_Comment L [Automated messa ge] The system which generated this result transmitted reference range: 35 - 45 mmHg. The reference range was not used to interpret this result as normal/abnormal. POC O PO2 (test code = 5786404716) See_Comment [Automated messa ge] The system which generated this result transmitted reference range: 80 - 100 mmHg. The reference range was not used to interpret this result as normal/abnormal. POC O HCO3 (test code = 8763315542) See_Comment L [Automated messa ge] The system which generated this result transmitted reference range: 22 - 26 mMol/L. The reference range was not used to interpret this result as normal/abnormal. POC O BE (test code = 0930597931) See_Comment L [Automated messa ge] The system which generated this result transmitted reference range: -2 - 2 mMol/L. The reference range was not used to interpret this result as normal/abnormal. POC O O2 Sat (calc) (test code = 6390791649) 97.3 % 95.0-100.0 POC O O2 Sat (leidy) (test code = 0493635068) 98.8 % 95-98 POC O Oxyhgb (test code = 9906461042) 96.9 % 95-100 POC O Carboxy (test code = 2296440661) 1.1 % Non-Smoker: 0.0-2.0 Smoker: 0.0-9.0 Reference RangeNon-Smoker 0.0-2.0 ? ?Smoker 0.0-9.0 POC O Methgb (test code = 4642867190) 0.8 % 0-1.4 POC O Hgb Tot (test code = 6975187337) 10.2 g/dL 11.2-15.7 L POC O Hct (calc) (test code = 64195-6) 31 % 34.1-44.9 L POC O Na (test code = 8121480453) See_Comment [Automated messa ge] The system which generated this result transmitted reference range: 135 - 145 mEq/L. The reference range was not used to interpret this result as normal/abnormal. POC O K (test code = 8692649874) See_Comment [Automated [employer] ge] The system which generated this result transmitted reference range: 3.5 - 5.1 mEq/L. The reference range was not used to interpret this result as normal/abnormal. POC O Cl (test code = 91808-4) See_Comment [Automated [employer] ge] The system which generated this result transmitted reference range: 95 - 109 mEq/L. The reference range was not used to interpret this result as normal/abnormal. POC O Glu (test code = 74205-9) 179 mg/dL 70-99 H POC O LA (test code = 2518-9) See_Comment [Automated messa ge] The system which generated this result transmitted reference range: 0.5 - 2.2 mMol/L. The reference range was not used to interpret this result as normal/abnormal. POC O Ca Ion (test code = 5136000160) See_Comment [Automated [employer] ssage] The system which generated this result transmitted reference range: 1.05 - 1.25 mMol/L. The reference range was not used to interpret this result as normal/abnormal. POC O Ca Ion (7.4) (test code = 6988537585) 1.14 mmol/L 1.05-1.25 POC O Mode #1 (test code = 2358431117) 20L VPTRM POC O Spon R (bpm) (test code = 5368671146) bpm POC O %FIO2 (test code = 2977372875) 40 % POC Performing Location (test code = 2833785853) [facility] Lab Interpretation (test code = 89687-3) Abnormal [facility] Arterial Blood Gas and Comprehensive Blubh3867-69-12 06:23:08* Test Item Value Reference Range Interpretation Comme nts POC A Temp (test code = 7676836080) DegC POC A Source (test code = 7385916540) ART POC A pH (test code = 2744-1) 7.35-7.45 POC A PCO2 (test code = 2019) See_Comment L [Automated messa ge] The system which generated this result transmitted reference range: 35 - 45 mmHg. The reference range was not used to interpret this result as normal/abnormal. POC A PO2 (test code = 2703-7) See_Comment [Automated messa ge] The system which generated this result transmitted reference range: 80 - 100 mmHg. The reference range was not used to interpret this result as normal/abnormal. POC A HCO3 (test code = 1960-4) See_Comment L [Automated messa ge] The system which generated this result transmitted reference range: 22 - 26 mMol/L. The reference range was not used to interpret this result as normal/abnormal. POC A BE (test code = 1925-7) See_Comment L [Automated messa ge] The system which generated this result transmitted reference range: -2 - 2 mMol/L. The reference range was not used to interpret this result as normal/abnormal. POC A O2 Sat (calc) (test code = 2708-6) 98.9 % 95-100 POC A O2 Sat (leidy) (test code = 7081284330) 99.2 % 95.0-100.0 POC A Oxyhgb (test code = 3307803047) 96.8 % 95-100 POC A Carboxy (test code = 0175486012) 1.1 % Non-Smoker: 0.0-2.0 Smoker: 0.0-9.0 Reference RangeNon-Smoker 0.0-2.0 ? ?Smoker 0.0-9.0 POC A Methgb (test code = 2615-3) 1.3 % 0.0-1.4 POC A Hgb Tot (test code = 43266-1) 8.3 g/dL 11.2-15.7 L POC A Hct (calc) (test code = 59322-4) 25 % 34.1-44.9 L POC A Na (test code = 60819-0) See_Comment [Automated messa ge] The system which generated this result transmitted reference range: 135 - 145 mEq/L. The reference range was not used to interpret this result as normal/abnormal. POC A K (test code = 3421234) See_Comment [Automated messa ge] The system which generated this result transmitted reference range: 3.5 - 5.1 mEq/L. The reference range was not used to interpret this result as normal/abnormal. POC Chloride (test code = 6519001) See_Comment [Automated messa ge] The system which generated this result transmitted reference range: 95 - 109 mEq/L. The reference range was not used to interpret this result as normal/abnormal. POC A Glu (test code = 2339-0) 173 mg/dL 70-99 H POC A LA (test code = 224) See_Comment [Automated messa ge] The system which generated this result transmitted reference range: 0.5 - 2.2 mMol/L. The reference range was not used to interpret this result as normal/abnormal. POC A Ca Ion (test code = 28007-2) See_Comment [Automated messa ge] The system which generated this result transmitted reference range: 1.05 - 1.25 mMol/L. The reference range was not used to interpret this result as normal/abnormal. POC A Ca Ion (7.4) (test code = 2176765707) 1.15 mmol/L 1.05-1.25 POC A Mode #1 (test code = 0870897663) SPONT. 12/5 POC A %FIO2 (test code = 0714862312) 40 % POC Performing Location (test code = 2505671958) [facility] Lab Interpretation (test code = 17963-7) Abnormal [facility] Venous Blood Gas and Comprehensive Hfgqo5340-80-30 05:25:50* Test Item Value Reference Range Interpretation Comme nts POC V Temp (test code = 3604901544) DegC POC V Source (test code = 0342992305) OLIVA POC V PO2 (test code = 2705-2) See_Comment [Automated messa ge] The system which generated this result transmitted reference range: 20 - 49 mmHg. The reference range was not used to interpret this result as normal/abnormal. POC V pH (test code = 2746-6) 7.28-7.42 POC V PCO2 (test code = 2020-) See_Comment L [Automated messa ge] The system which generated this result transmitted reference range: 38 - 52 mmHg. The reference range was not used to interpret this result as normal/abnormal. POC V Oxyhgb (test code = 9997981328) 78.5 % 95-100 L POC V O2 Sat (leidy) (test code = 3822254858) 80.4 % 40.0-70.0 H POC V O2 Sat (calc) (test code = 2711-0) 81 % 40-70 H POC V HCO3 (test code = 83811-5) 20 mmol/L 22-26 L POC V Carboxy (test code = 2548738353) 1.7 % Non-Smoker: 0.0-2.0 Smoker: 0.0-9.0 Reference RangeNon-Smoker 0.0-2.0 ? ?Smoker 0.0-9.0 POC V BE (test code = 1927-3) -4 mmol/L -2-2 L POC V Methgb (test code = 2617-9) 0.7 % 0.0-1.4 POC V Hgb Tot (test code = 88130-4) 8 g/dL 11.2-15.7 L POC V Hct (calc) (test code = 81713-5) 24 % 34.1-44.9 L POC V Na (test code = 30946-9) See_Comment [Automated messa ge] The system which generated this result transmitted reference range: 135 - 145 mEq/L. The reference range was not used to interpret this result as normal/abnormal. POC V K (test code = 54411-5) See_Comment [Automated messa ge] The system which generated this result transmitted reference range: 3.5 - 5.1 mEq/L. The reference range was not used to interpret this result as normal/abnormal. POC V Cl (test code = 12829-6) See_Comment [Automated messa ge] The system which generated this result transmitted reference range: 95 - 109 mEq/L. The reference range was not used to interpret this result as normal/abnormal. POC V Glu (test code = 16276-7) 168 mg/dL 70-99 H POC V LA (test code = 2519-7) See_Comment [Automated messa ge] The system which generated this result transmitted reference range: 0.5 - 2.2 mMol/L. The reference range was not used to interpret this result as normal/abnormal. POC V Ca Ion (test code = 06527-1) See_Comment [Automated messa ge] The system which generated this result transmitted reference range: 1.05 - 1.25 mMol/L. The reference range was not used to interpret this result as normal/abnormal. POC V Ca Ion (7.4) (test code = 2746586948) See_Comment [Automated messa ge] The system which generated this result transmitted reference range: 1.05 - 1.25 mMol/L. The reference range was not used to interpret this result as normal/abnormal. POC Performing Location (test code = 7205411216) [facility] Lab Interpretation (test code = 55001-8) Abnormal [facility] Arterial Blood Gas and Comprehensive Otekb8824-36-29 00:13:02* Test Item Value Reference Range Interpretation Comme nts POC A Temp (test code = 1995028742) DegC POC A Source (test code = 7825135229) ART POC A pH (test code = 2744-1) 7.35-7.45 POC A PCO2 (test code = 2019-8) See_Comment L [Automated messa ge] The system which generated this result transmitted reference range: 35 - 45 mmHg. The reference range was not used to interpret this result as normal/abnormal. POC A PO2 (test code = 2703-7) See_Comment [Automated messa ge] The system which generated this result transmitted reference range: 80 - 100 mmHg. The reference range was not used to interpret this result as normal/abnormal. POC A HCO3 (test code = 1960-4) See_Comment L [Automated messa ge] The system which generated this result transmitted reference range: 22 - 26 mMol/L. The reference range was not used to interpret this result as normal/abnormal. POC A BE (test code = 1925-7) See_Comment L [Automated messa ge] The system which generated this result transmitted reference range: -2 - 2 mMol/L. The reference range was not used to interpret this result as normal/abnormal. POC A O2 Sat (calc) (test code = 2708-6) 98.5 % 95-100 POC A O2 Sat (leidy) (test code = 6359928617) 100 % 95.0-100.0 POC A Oxyhgb (test code = 6154775279) 97.8 % 95-100 POC A Carboxy (test code = 4010268952) 1.6 % Non-Smoker: 0.0-2.0 Smoker: 0.0-9.0 Reference RangeNon-Smoker 0.0-2.0 ? ?Smoker 0.0-9.0 POC A Methgb (test code = 2615-3) 0.0-1.4 POC A Hgb Tot (test code = 42689-8) 8.1 g/dL 11.2-15.7 L POC A Hct (calc) (test code = 94296-6) 24 % 34.1-44.9 L POC A Na (test code = 73840-6) See_Comment [Automated messa ge] The system which generated this result transmitted reference range: 135 - 145 mEq/L. The reference range was not used to interpret this result as normal/abnormal. POC A K (test code = 8984069) See_Comment [Automated messa ge] The system which generated this result transmitted reference range: 3.5 - 5.1 mEq/L. The reference range was not used to interpret this result as normal/abnormal. POC Chloride (test code = 1141551) See_Comment [Automated messa ge] The system which generated this result transmitted reference range: 95 - 109 mEq/L. The reference range was not used to interpret this result as normal/abnormal. POC A Glu (test code = 2339-0) 142 mg/dL 70-99 H POC A LA (test code = 224) See_Comment [Automated messa ge] The system which generated this result transmitted reference range: 0.5 - 2.2 mMol/L. The reference range was not used to interpret this result as normal/abnormal. POC A Ca Ion (test code = 48131-8) See_Comment [Automated messa ge] The system which generated this result transmitted reference range: 1.05 - 1.25 mMol/L. The reference range was not used to interpret this result as normal/abnormal. POC A Ca Ion (7.4) (test code = 1660234698) 1.13 mmol/L 1.05-1.25 POC A Mode #1 (test code = 1631105628) AC/VC POC A Mech R (bpm) (test code = 5336497667) bpm POC A Mech VT (test code = 8911669793) 400 mL POC A PEEP (test code = 0935368903) cmH20 POC A %FIO2 (test code = 1099895751) 40 % POC Performing Location (test code = 0561338349) [facility] Lab Interpretation (test code = 14662-9) Abnormal [facility] Pjqhqzz4074-16-28 22:07:47* Test Item Value Reference Range Interpretation Comme nts POC Glu (test code = 9439465688) 105 mg/dL 70-99 H POC Performing Location (nima t code = 4666565638) [facility] Lab Interpretation (test cod e = 87685-6) Abnormal [facility] Vpilggk2079-30-10 21:14:59* Test Item Value Reference Range Interpretation Comme nts POC Glu (test code = 0681140280) 89 mg/dL 70-99 POC Performing Location (nima t code = 6200001702) [address] Awbfqhr4531-23-45 20:32:24* Test Item Value Reference Range Interpretation Comme nts POC Glu (test code = 1463290388) 85 mg/dL 70-99 POC Performing Location (nima t code = 1998745951) [address] RBC: 2 Wivqt6104-49-62 19:10:58* Test Item Value Reference Range Interpretation Comme nts Product Code (test code = 25) [id number] Unit Number (test code = 1624) [id number] Unit ABO (test code = 8134920) O Unit RH (test code = 7552591) POS Crossmatch (test code = 2917525) Compatible Dispense Status (test code = 1623) Transfused Blood Expiration Date (test code = 530) Product Blood Type (test cod e = 532) Unit Volume (test code = 1322-7) 300 mL [facility] Userrnb0459-75-59 18:08:26* Test Item Value Reference Range Interpretation Comme nts POC Glu (test code = 0706742859) 83 mg/dL 70-99 POC Performing Location (nima t code = 8960478970) [facility] Other Blood Gas and Comprehensive Isoel4783-17-26 16:46:05* Test Item Value Reference Range Interpretation Comme nts POC O Temp (test code = 7495704070) DegC POC O Source (test code = 6076467724) O POC O pH (test code = 2952632468) 7.35-7.45 H POC O PCO2 (test code = 2518127583) See_Comment L [Automated messa ge] The system which generated this result transmitted reference range: 35 - 45 mmHg. The reference range was not used to interpret this result as normal/abnormal. POC O PO2 (test code = 9307228256) See_Comment [Automated messa ge] The system which generated this result transmitted reference range: 80 - 100 mmHg. The reference range was not used to interpret this result as normal/abnormal. POC O HCO3 (test code = 9755563107) See_Comment [Automated messa ge] The system which generated this result transmitted reference range: 22 - 26 mMol/L. The reference range was not used to interpret this result as normal/abnormal. POC O BE (test code = 6530892338) See_Comment [Automated messa ge] The system which generated this result transmitted reference range: -2 - 2 mMol/L. The reference range was not used to interpret this result as normal/abnormal. POC O O2 Sat (calc) (test code = 7753493645) 99.3 % 95.0-100.0 POC O O2 Sat (leidy) (test code = 4183374264) 99.9 % 95-98 POC O Oxyhgb (test code = 6710540137) 97.9 % 95-100 POC O Carboxy (test code = 0371700271) 1.3 % Non-Smoker: 0.0-2.0 Smoker: 0.0-9.0 Reference RangeNon-Smoker 0.0-2.0 ? ?Smoker 0.0-9.0 POC O Methgb (test code = 8290637915) 0.7 % 0-1.4 POC O Hgb Tot (test code = 1751295613) 6.2 g/dL 11.2-15.7 LL POC O Hct (calc) (test code = 45975-0) 19 % 34.1-44.9 LL POC O Na (test code = 5664225476) See_Comment [Automated messa ge] The system which generated this result transmitted reference range: 135 - 145 mEq/L. The reference range was not used to interpret this result as normal/abnormal. POC O K (test code = 8761427367) See_Comment [Automated [employer]] The system which generated this result transmitted reference range: 3.5 - 5.1 mEq/L. The reference range was not used to interpret this result as normal/abnormal. POC O Cl (test code = 10762-0) See_Comment H [Automated [employer]] The system which generated this result transmitted reference range: 95 - 109 mEq/L. The reference range was not used to interpret this result as normal/abnormal. POC O Glu (test code = 36516-0) 85 mg/dL 70-99 POC O LA (test code = 2518-9) See_Comment [Automated [employer]] The system which generated this result transmitted reference range: 0.5 - 2.2 mMol/L. The reference range was not used to interpret this result as normal/abnormal. POC O Ca Ion (test code = 2133379306) See_Comment [Automated [employer] ssage] The system which generated this result transmitted reference range: 1.05 - 1.25 mMol/L. The reference range was not used to interpret this result as normal/abnormal. POC O Ca Ion (7.4) (test code = 9092104543) 1.18 mmol/L 1.05-1.25 POC Performing Location (test code = 6574524863) [facility] Lab Interpretation (test code = 26483-8) Abnormal [facility] Byacbhg6831-02-84 13:26:54* Test Item Value Reference Range Interpretation Comme nts POC Glu (test code = 9659775834) 133 mg/dL 70-99 H POC Performing Location (nima t code = 1330441062) [facility] Lab Interpretation (test cod e = 64951-2) Abnormal [facility] Fgomrng1134-51-54 12:31:03* Test Item Value Reference Range Interpretation Comme nts POC Glu (test code = 1835813614) 115 mg/dL 70-99 H POC Performing Location (nima t code = 0004092767) [facility] Lab Interpretation (test cod e = 44249-4) Abnormal [facility] RBC: 2 Aiclw2249-95-34 11:14:42* Test Item Value Reference Range Interpretation Comme [facility] Product Code (test code = 25) [id number] Unit Number (test code = 1624) [id number] Unit ABO (test code = 3992963) O Unit RH (test code = 5271443) POS Crossmatch (test code = 1452168) Compatible Dispense Status (test code = 1623) Transfused Blood Expiration Date (test code = 530) Product Blood Type (test cod e = 532) Unit Volume (test code = 1322-7) 275 mL [facility] Exvnhmu1324-07-47 10:17:25* Test Item Value Reference Range Interpretation Comme [facility] POC Glu (test code = 8662260884) 73 mg/dL 70-99 POC Performing Location (nima t code = 6798675619) [address] Ylrvyhg3312-70-71 08:38:12* Test Item Value Reference Range Interpretation Comme [facility] POC Glu (test code = 5645647024) 87 mg/dL 70-99 POC Performing Location (nima t code = 1466012489) [address] Arterial Blood Gas and Comprehensive [id number] 06:14:10* Test Item Value Reference Range Interpretation Comme [facility] POC A Temp (test code = 6126268928) DegC POC A Source (test code = 0050423147) ART POC A pH (test code = 2744-1) 7.35-7.45 POC A PCO2 (test code = 2019-8) See_Comment [Automated messa ge] The system which generated this result transmitted reference range: 35 - 45 mmHg. The reference range was not used to interpret this result as normal/abnormal. POC A PO2 (test code = 2703-7) See_Comment [Automated messa ge] The system which generated this result transmitted reference range: 80 - 100 mmHg. The reference range was not used to interpret this result as normal/abnormal. POC A HCO3 (test code = 1960-4) See_Comment [Automated messa ge] The system which generated this result transmitted reference range: 22 - 26 mMol/L. The reference range was not used to interpret this result as normal/abnormal. POC A BE (test code = 1925-7) See_Comment [Automated messa ge] The system which generated this result transmitted reference range: -2 - 2 mMol/L. The reference range was not used to interpret this result as normal/abnormal. POC A O2 Sat (calc) (test code = 2708-6) 99.1 % 95-100 POC A O2 Sat (leidy) (test code = 1817831832) 99 % 95.0-100.0 POC A Oxyhgb (test code = 9586363006) 96.4 % 95-100 POC A Carboxy (test code = 2029777044) 0.9 % Non-Smoker: 0.0-2.0 Smoker: 0.0-9.0 Reference RangeNon-Smoker 0.0-2.0 ? ?Smoker 0.0-9.0 POC A Methgb (test code = 2615-3) 1.7 % 0.0-1.4 HH POC A Hgb Tot (test code = 68220-8) 9.2 g/dL 11.2-15.7 L POC A Hct (calc) (test code = 99023-8) 28 % 34.1-44.9 L POC A Na (test code = 53188-3) See_Comment [Automated messa ge] The system which generated this result transmitted reference range: 135 - 145 mEq/L. The reference range was not used to interpret this result as normal/abnormal. POC A K (test code = 8696129) See_Comment [Automated messa ge] The system which generated this result transmitted reference range: 3.5 - 5.1 mEq/L. The reference range was not used to interpret this result as normal/abnormal. POC Chloride (test code = 3330223) See_Comment [Automated messa ge] The system which generated this result transmitted reference range: 95 - 109 mEq/L. The reference range was not used to interpret this result as normal/abnormal. POC A Glu (test code = 2339-0) 165 mg/dL 70-99 H POC A LA (test code = 224) See_Comment H [Automated messa ge] The system which generated this result transmitted reference range: 0.5 - 2.2 mMol/L. The reference range was not used to interpret this result as normal/abnormal. POC A Ca Ion (test code = 20323-5) See_Comment [Automated messa ge] The system which generated this result transmitted reference range: 1.05 - 1.25 mMol/L. The reference range was not used to interpret this result as normal/abnormal. POC A Ca Ion (7.4) (test code = 0117612621) 1.21 mmol/L 1.05-1.25 POC A Mode #1 (test code = 5381671431) AC/VC POC A Mech R (bpm) (test code = 7407193477) bpm POC A Mech VT (test code = 4114782957) 370 mL POC A PEEP (test code = 6637563630) cmH20 POC A %FIO2 (test code = 3579907434) 40 % POC Performing Location (test code = 5036379099) [facility] Lab Interpretation (test code = 46595-9) Abnormal [facility] Dibpypt7881-87-62 05:06:26* Test Item Value Reference Range Interpretation Comme nts POC Glu (test code = 6433973059) 174 mg/dL 70-99 H POC Performing Location (nima t code = 0426209787) HV5 HEART Lab Interpretation (test cod e = 61233-5) Abnormal [facility] Arterial Blood Gas and Comprehensive Evtxv2573-08-46 04:26:28* Test Item Value Reference Range Interpretation Comme nts POC A Temp (test code = 5762928739) DegC POC A Source (test code = 2115699669) ART POC A pH (test code = 2744-1) 7.35-7.45 POC A PCO2 (test code = 2019-8) See_Comment [Automated messa ge] The system which generated this result transmitted reference range: 35 - 45 mmHg. The reference range was not used to interpret this result as normal/abnormal. POC A PO2 (test code = 2703-7) See_Comment [Automated messa ge] The system which generated this result transmitted reference range: 80 - 100 mmHg. The reference range was not used to interpret this result as normal/abnormal. POC A HCO3 (test code = 1960-4) See_Comment L [Automated messa ge] The system which generated this result transmitted reference range: 22 - 26 mMol/L. The reference range was not used to interpret this result as normal/abnormal. POC A BE (test code = 1925-7) See_Comment L [Automated messa ge] The system which generated this result transmitted reference range: -2 - 2 mMol/L. The reference range was not used to interpret this result as normal/abnormal. POC A O2 Sat (calc) (test code = 2708-6) 98.3 % 95-100 POC A O2 Sat (leidy) (test code = 3208162060) 99.4 % 95.0-100.0 POC A Oxyhgb (test code = 8850304499) 97.3 % 95-100 POC A Carboxy (test code = 5589434127) 1.1 % Non-Smoker: 0.0-2.0 Smoker: 0.0-9.0 Reference RangeNon-Smoker 0.0-2.0 ? ?Smoker 0.0-9.0 POC A Methgb (test code = 2615-3) 0.9 % 0.0-1.4 POC A Hgb Tot (test code = 62813-1) 9.4 g/dL 11.2-15.7 L POC A Hct (calc) (test code = 46949-0) 28 % 34.1-44.9 L POC A Na (test code = 25702-3) See_Comment [Automated messa ge] The system which generated this result transmitted reference range: 135 - 145 mEq/L. The reference range was not used to interpret this result as normal/abnormal. POC A K (test code = 6243301) See_Comment [Automated messa ge] The system which generated this result transmitted reference range: 3.5 - 5.1 mEq/L. The reference range was not used to interpret this result as normal/abnormal. POC Chloride (test code = 0180229) See_Comment [Automated messa ge] The system which generated this result transmitted reference range: 95 - 109 mEq/L. The reference range was not used to interpret this result as normal/abnormal. POC A Glu (test code = 2339-0) 221 mg/dL 70-99 H POC A LA (test code = 224) See_Comment H [Automated messa ge] The system which generated this result transmitted reference range: 0.5 - 2.2 mMol/L. The reference range was not used to interpret this result as normal/abnormal. POC A Ca Ion (test code = 43029-0) See_Comment [Automated [employer]] The system which generated this result transmitted reference range: 1.05 - 1.25 mMol/L. The reference range was not used to interpret this result as normal/abnormal. POC A Ca Ion (7.4) (test code = 8291298569) 1.24 mmol/L 1.05-1.25 POC A Mode #1 (test code = 1966375520) AC/VC POC A Mech R (bpm) (test code = 6085603231) bpm POC A Mech VT (test code = 6654359757) 370 mL POC A PEEP (test code = 3372160881) cmH20 POC A %FIO2 (test code = 9709645474) 40 % POC Performing Location (test code = 8469009010) [facility] BG CLI Lab Interpretation (test code = 78345-2) Abnormal [facility] Jhchgfw4343-97-20 03:13:48* Test Item Value Reference Range Interpretation Comme nts POC Glu (test code = 5279228081) 209 mg/dL 70-99 H POC Performing Location (nima t code = 6311370344) HV5 HEART Lab Interpretation (test cod e = 39354-4) Abnormal [facility] Venous Blood Gas and Comprehensive Erzan7018-92-40 02:10:13* Test Item Value Reference Range Interpretation Comme nts POC V Temp (test code = 7172745083) DegC POC V Source (test code = 6876566100) OLIVA POC V PO2 (test code = 2705-2) See_Comment [Automated [employer]] The system which generated this result transmitted reference range: 20 - 49 mmHg. The reference range was not used to interpret this result as normal/abnormal. POC V pH (test code = 2746-6) 7.28-7.42 POC V PCO2 (test code = 2020-) See_Comment [Automated [employer] ge] The system which generated this result transmitted reference range: 38 - 52 mmHg. The reference range was not used to interpret this result as normal/abnormal. POC V Oxyhgb (test code = 1930675424) 72.5 % 95-100 L POC V O2 Sat (leidy) (test code = 0905747814) 74.5 % 40.0-70.0 H POC V O2 Sat (calc) (test code = 2711-0) 80 % 40-70 H POC V HCO3 (test code = 40257-4) 23 mmol/L 22-26 POC V Carboxy (test code = 3337989165) 1.6 % Non-Smoker: 0.0-2.0 Smoker: 0.0-9.0 Reference RangeNon-Smoker 0.0-2.0 ? ?Smoker 0.0-9.0 POC V BE (test code = 1927-3) -2 mmol/L -2-2 POC V Methgb (test code = 2617-9) 1.1 % 0.0-1.4 POC V Hgb Tot (test code = 83753-6) 8.8 g/dL 11.2-15.7 L POC V Hct (calc) (test code = 47375-1) 26 % 34.1-44.9 L POC V Na (test code = 68426-3) See_Comment [Automated messa ge] The system which generated this result transmitted reference range: 135 - 145 mEq/L. The reference range was not used to interpret this result as normal/abnormal. POC V K (test code = 36931-7) See_Comment [Automated messa ge] The system which generated this result transmitted reference range: 3.5 - 5.1 mEq/L. The reference range was not used to interpret this result as normal/abnormal. POC V Cl (test code = 85274-4) See_Comment [Automated messa ge] The system which generated this result transmitted reference range: 95 - 109 mEq/L. The reference range was not used to interpret this result as normal/abnormal. POC V Glu (test code = 72207-1) 268 mg/dL 70-99 H POC V LA (test code = 2519-7) See_Comment H [Automated messa ge] The system which generated this result transmitted reference range: 0.5 - 2.2 mMol/L. The reference range was not used to interpret this result as normal/abnormal. POC V Ca Ion (test code = 02905-6) See_Comment H [Automated messa ge] The system which generated this result transmitted reference range: 1.05 - 1.25 mMol/L. The reference range was not used to interpret this result as normal/abnormal. POC V Ca Ion (7.4) (test code = 4195061962) See_Comment H [Automated messa ge] The system which generated this result transmitted reference range: 1.05 - 1.25 mMol/L. The reference range was not used to interpret this result as normal/abnormal. POC Performing Location (test code = 5513013591) [facility] Lab Interpretation (test code = 66184-6) Abnormal [facility] Dhjuapk5668-12-12 01:19:03* Test Item Value Reference Range Interpretation Comme nts POC Glu (test code = 3781100960) 260 mg/dL 70-99 H POC Performing Location (nima t code = 8745840177) [facility] HEART Lab Interpretation (test cod e = 46752-8) Abnormal [facility] Arterial Blood Gas and Comprehensive Rfspr5454-84-80 00:21:50* Test Item Value Reference Range Interpretation Comme nts POC A Temp (test code = 1184430185) DegC POC A Source (test code = 4803839138) ART POC A pH (test code = 2744-1) 7.35-7.45 POC A PCO2 (test code = 2019-8) See_Comment [Automated messa ge] The system which generated this result transmitted reference range: 35 - 45 mmHg. The reference range was not used to interpret this result as normal/abnormal. POC A PO2 (test code = 2703-7) See_Comment [Automated messa ge] The system which generated this result transmitted reference range: 80 - 100 mmHg. The reference range was not used to interpret this result as normal/abnormal. POC A HCO3 (test code = 1960-4) See_Comment [Automated messa ge] The system which generated this result transmitted reference range: 22 - 26 mMol/L. The reference range was not used to interpret this result as normal/abnormal. POC A BE (test code = 1925-7) See_Comment L [Automated messa ge] The system which generated this result transmitted reference range: -2 - 2 mMol/L. The reference range was not used to interpret this result as normal/abnormal. POC A O2 Sat (calc) (test code = 2708-6) 98.7 % 95-100 POC A O2 Sat (leidy) (test code = 2565993475) 99 % 95.0-100.0 POC A Oxyhgb (test code = 2491067609) 97.4 % 95-100 POC A Carboxy (test code = 1904521629) 1 % Non-Smoker: 0.0-2.0 Smoker: 0.0-9.0 Reference RangeNon-Smoker 0.0-2.0 ? ?Smoker 0.0-9.0 POC A Methgb (test code = 2615-3) 0.7 % 0.0-1.4 POC A Hgb Tot (test code = 57227-6) 9.3 g/dL 11.2-15.7 L POC A Hct (calc) (test code = 87483-8) 28 % 34.1-44.9 L POC A Na (test code = 30931-5) See_Comment [Automated messa ge] The system which generated this result transmitted reference range: 135 - 145 mEq/L. The reference range was not used to interpret this result as normal/abnormal. POC A K (test code = 3355649) See_Comment L [Automated messa ge] The system which generated this result transmitted reference range: 3.5 - 5.1 mEq/L. The reference range was not used to interpret this result as normal/abnormal. POC Chloride (test code = 6382631) See_Comment [Automated messa ge] The system which generated this result transmitted reference range: 95 - 109 mEq/L. The reference range was not used to interpret this result as normal/abnormal. POC A Glu (test code = 2339-0) 303 mg/dL 70-99 H POC A LA (test code = 224) See_Comment H [Automated messa ge] The system which generated this result transmitted reference range: 0.5 - 2.2 mMol/L. The reference range was not used to interpret this result as normal/abnormal. POC A Ca Ion (test code = 94933-6) See_Comment [Automated messa ge] The system which generated this result transmitted reference range: 1.05 - 1.25 mMol/L. The reference range was not used to interpret this result as normal/abnormal. POC A Ca Ion (7.4) (test code = 8250097712) 1.13 mmol/L 1.05-1.25 POC A Mode #1 (test code = 0001734319) AC/VC POC A Spon R (bpm) (test code = 8083490289) bpm POC A Mech VT (test code = 4442162259) 370 mL POC A PEEP (test code = 0112754581) cmH20 POC A %FIO2 (test code = 0752133210) 50 % POC Performing Location (test code = 5164825070) [facility] Lab Interpretation (test code = 11133-2) Abnormal [facility] EpicPOC Activated Clotting Rxwe3543-08-21 00:06:41* Test Item Value Reference Range Interpretation Comme nts POC Activated Clotting Time (test code = 239) seconds POC Performing Location (nima t code = 8444216801) 2 CATH [facility] EpicPOC Activated Clotting Cgrs2824-98-77 00:06:41* Test Item Value Reference Range Interpretation Comme nts POC Activated Clotting Time (test code = 239) seconds POC Performing Location (nima t code = 9168320922) 2 CATH [facility] EpicPOC Activated Clotting Abvn3143-13-36 00:06:41* Test Item Value Reference Range Interpretation Comme nts POC Activated Clotting Time (test code = 239) seconds POC Performing Location (nima t code = 1238321758) [facility] Activated Clot[facility] Sdjd9382-47-03 00:06:41* Test Item Value Reference Range Interpretation Comme nts POC Activated Clotting Time (test code = 239) seconds POC Performing Location (nima t code = 0201923475) 2 CATH [facility] EpicPOC Activated Clotting Vgbd4444-73-07 00:06:41* Test Item Value Reference Range Interpretation Comme nts POC Activated Clotting Time (test code = 239) seconds POC Performing Location (nima t code = 0558113988) 2 CATH [facility] EpicPOC Activated Clotting Jyjs0459-59-50 00:06:40* Test Item Value Reference Range Interpretation Comme nts POC Activated Clotting Time (test code = 239) seconds POC Performing Location (nima t code = 5889409631) 2 CATH [facility] EpicC Venous Blood Gas and Comprehensive Tiufe3124-78-94 22:12:03* Test Item Value Reference Range Interpretation Comme nts POC V Temp (test code = 7583018415) DegC POC V Source (test code = 4827540800) OLIVA POC V PO2 (test code = 2705-2) See_Comment [Automated messa ge] The system which generated this result transmitted reference range: 20 - 49 mmHg. The reference range was not used to interpret this result as normal/abnormal. POC V pH (test code = 2746-6) 7.28-7.42 POC V PCO2 (test code = 2020-) See_Comment [Automated messa ge] The system which generated this result transmitted reference range: 38 - 52 mmHg. The reference range was not used to interpret this result as normal/abnormal. POC V Oxyhgb (test code = 2059486724) 75.4 % 95-100 L POC V O2 Sat (leidy) (test code = 4961951600) 76.9 % 40.0-70.0 H POC V O2 Sat (calc) (test code = 2711-0) 75 % 40-70 H POC V HCO3 (test code = 47127-4) 21 mmol/L 22-26 L POC V Carboxy (test code = 9683032536) 1.5 % Non-Smoker: 0.0-2.0 Smoker: 0.0-9.0 Reference RangeNon-Smoker 0.0-2.0 ? ?Smoker 0.0-9.0 POC V BE (test code = 1927-3) -4 mmol/L -2-2 L POC V Methgb (test code = 2617-9) 0.0-1.4 POC V Hgb Tot (test code = 99426-3) 9.3 g/dL 11.2-15.7 L POC V Hct (calc) (test code = 71915-8) 28 % 34.1-44.9 L POC V Na (test code = 60385-1) See_Comment [Automated messa ge] The system which generated this result transmitted reference range: 135 - 145 mEq/L. The reference range was not used to interpret this result as normal/abnormal. POC V K (test code = 75985-3) See_Comment [Automated messa ge] The system which generated this result transmitted reference range: 3.5 - 5.1 mEq/L. The reference range was not used to interpret this result as normal/abnormal. POC V Cl (test code = 65726-8) See_Comment [Automated messa ge] The system which generated this result transmitted reference range: 95 - 109 mEq/L. The reference range was not used to interpret this result as normal/abnormal. POC V Glu (test code = 53916-8) 238 mg/dL 70-99 H POC V LA (test code = 2519-7) See_Comment H [Automated messa ge] The system which generated this result transmitted reference range: 0.5 - 2.2 mMol/L. The reference range was not used to interpret this result as normal/abnormal. POC V Ca Ion (test code = 07024-7) See_Comment [Automated messa ge] The system which generated this result transmitted reference range: 1.05 - 1.25 mMol/L. The reference range was not used to interpret this result as normal/abnormal. POC V Ca Ion (7.4) (test code = 5709595734) See_Comment [Automated messa ge] The system which generated this result transmitted reference range: 1.05 - 1.25 mMol/L. The reference range was not used to interpret this result as normal/abnormal. POC V Mech R (bpm) (test code = 5021275651) bpm POC V PEEP (test code = 0781793192) cmH20 POC V %FIO2 (test code = 9037657718) 100 % POC Performing Location (test code = 1831246208) [facility] Lab Interpretation (test code = 52997-0) Abnormal [facility] Arterial Blood Gas and Comprehensive Ucnzi0550-70-67 22:08:31* Test Item Value Reference Range Interpretation Comme nts POC A Temp (test code = 0881846613) DegC POC A Source (test code = 2286228124) ART POC A pH (test code = 2744-1) 7.35-7.45 POC A PCO2 (test code = 2019-) See_Comment L [Automated messa ge] The system which generated this result transmitted reference range: 35 - 45 mmHg. The reference range was not used to interpret this result as normal/abnormal. POC A PO2 (test code = 2703-7) See_Comment [Automated messa ge] The system which generated this result transmitted reference range: 80 - 100 mmHg. The reference range was not used to interpret this result as normal/abnormal. POC A HCO3 (test code = 1960-4) See_Comment L [Automated messa ge] The system which generated this result transmitted reference range: 22 - 26 mMol/L. The reference range was not used to interpret this result as normal/abnormal. POC A BE (test code = 1925-7) See_Comment L [Automated messa ge] The system which generated this result transmitted reference range: -2 - 2 mMol/L. The reference range was not used to interpret this result as normal/abnormal. POC A O2 Sat (calc) (test code = 2708-6) 99.9 % 95-100 POC A O2 Sat (leidy) (test code = 2664306626) 100 % 95.0-100.0 POC A Oxyhgb (test code = 4405032148) 97.7 % 95-100 POC A Carboxy (test code = 1503572820) 1.3 % Non-Smoker: 0.0-2.0 Smoker: 0.0-9.0 Reference RangeNon-Smoker 0.0-2.0 ? ?Smoker 0.0-9.0 POC A Methgb (test code = 2615-3) 1 % 0.0-1.4 POC A Hgb Tot (test code = 49682-4) 9.4 g/dL 11.2-15.7 L POC A Hct (calc) (test code = 12059-2) 28 % 34.1-44.9 L POC A Na (test code = 37242-3) See_Comment [Automated messa ge] The system which generated this result transmitted reference range: 135 - 145 mEq/L. The reference range was not used to interpret this result as normal/abnormal. POC A K (test code = 3447806) See_Comment [Automated messa ge] The system which generated this result transmitted reference range: 3.5 - 5.1 mEq/L. The reference range was not used to interpret this result as normal/abnormal. POC Chloride (test code = 5975401) See_Comment [Automated messa ge] The system which generated this result transmitted reference range: 95 - 109 mEq/L. The reference range was not used to interpret this result as normal/abnormal. POC A Glu (test code = 2339-0) 238 mg/dL 70-99 H POC A LA (test code = 224) See_Comment H [Automated messa ge] The system which generated this result transmitted reference range: 0.5 - 2.2 mMol/L. The reference range was not used to interpret this result as normal/abnormal. POC A Ca Ion (test code = 51865-2) See_Comment [Automated messa ge] The system which generated this result transmitted reference range: 1.05 - 1.25 mMol/L. The reference range was not used to interpret this result as normal/abnormal. POC A Ca Ion (7.4) (test code = 8903771041) 1.2 mmol/L 1.05-1.25 POC A Mode #1 (test code = 1286509185) A/C POC A Mech R (bpm) (test code = 9977559430) bpm POC A Mech VT (test code = 7678104738) 400 mL POC A %FIO2 (test code = 6363593119) 100 % POC Performing Location (test code = 9782229897) BG CL[facility] Lab Interpretation (test code = 55591-8) Abnormal [facility] Arterial Blood Gas and Basic Yemcm8523-13-39 21:12:04* Test Item Value Reference Range Interpretation Comme nts POC A Temp (test code = 1521835684) DegC POC A Source (test code = 6632842733) ART POC A pH (test code = 2744-1) 7.35-7.45 POC A PCO2 (test code = 2019-8) See_Comment [Automated messa ge] The system which generated this result transmitted reference range: 35 - 45 mmHg. The reference range was not used to interpret this result as normal/abnormal. POC A PO2 (test code = 2703-7) See_Comment [Automated messa ge] The system which generated this result transmitted reference range: 80 - 100 mmHg. The reference range was not used to interpret this result as normal/abnormal. POC A HCO3 (test code = 1960-4) See_Comment L [Automated messa ge] The system which generated this result transmitted reference range: 22 - 26 mMol/L. The reference range was not used to interpret this result as normal/abnormal. POC A BE (test code = 1925-7) See_Comment L [Automated messa ge] The system which generated this result transmitted reference range: -2 - 2 mMol/L. The reference range was not used to interpret this result as normal/abnormal. POC A O2 Sat (calc) (test code = 2708-6) 99.8 % 95-100 POC A Hgb Tot (test code = 87516-6) 9.2 g/dL 11.2-15.7 L POC A Hct (calc) (test code = 92797-0) 28 % 34.1-44.9 L POC A Na (test code = 98062-7) See_Comment [Automated messa ge] The system which generated this result transmitted reference range: 135 - 145 mEq/L. The reference range was not used to interpret this result as normal/abnormal. POC A K (test code = 3342931) See_Comment [Automated messa ge] The system which generated this result transmitted reference range: 3.5 - 5.1 mEq/L. The reference range was not used to interpret this result as normal/abnormal. POC Chloride (test code = 2073217) See_Comment [Automated messa ge] The system which generated this result transmitted reference range: 95 - 109 mEq/L. The reference range was not used to interpret this result as normal/abnormal. POC A Glu (test code = 2339-0) 262 mg/dL 70-99 H POC A LA (test code = 224) See_Comment H [Automated messa ge] The system which generated this result transmitted reference range: 0.5 - 2.2 mMol/L. The reference range was not used to interpret this result as normal/abnormal. POC A Ca Ion (test code = 20025-0) See_Comment [Automated messa ge] The system which generated this result transmitted reference range: 1.05 - 1.25 mMol/L. The reference range was not used to interpret this result as normal/abnormal. POC A Ca Ion (7.4) (test code = 1961793516) 1.19 mmol/L 1.05-1.25 POC Performing Location (test code = 2889502505) [facility] BG CLI Lab Interpretation (test code = 57933-8) Abnormal [place] [facility] Arterial Blood Gas and Basic Dzkps0568-27-26 20:31:00* Test Item Value Reference Range Interpretation Comme nts POC A Temp (test code = 9356832465) DegC POC A Source (test code = 9555492758) ART POC A pH (test code = 2744-1) 7.35-7.45 POC A PCO2 (test code = 2018-12) See_Comment L [Automated messa ge] The system which generated this result transmitted reference range: 35 - 45 mmHg. The reference range was not used to interpret this result as normal/abnormal. POC A PO2 (test code = 2703-7) See_Comment [Automated messa ge] The system which generated this result transmitted reference range: 80 - 100 mmHg. The reference range was not used to interpret this result as normal/abnormal. POC A HCO3 (test code = 1960-4) See_Comment L [Automated messa ge] The system which generated this result transmitted reference range: 22 - 26 mMol/L. The reference range was not used to interpret this result as normal/abnormal. POC A BE (test code = 1925-7) See_Comment L [Automated messa ge] The system which generated this result transmitted reference range: -2 - 2 mMol/L. The reference range was not used to interpret this result as normal/abnormal. POC A O2 Sat (calc) (test code = 2708-6) 99.7 % 95-100 POC A Hgb Tot (test code = 17109-8) 7.7 g/dL 11.2-15.7 L POC A Hct (calc) (test code = 11699-6) 23 % 34.1-44.9 L POC A Na (test code = 09115-7) See_Comment [Automated messa ge] The system which generated this result transmitted reference range: 135 - 145 mEq/L. The reference range was not used to interpret this result as normal/abnormal. POC A K (test code = 8659294) See_Comment [Automated messa ge] The system which generated this result transmitted reference range: 3.5 - 5.1 mEq/L. The reference range was not used to interpret this result as normal/abnormal. POC Chloride (test code = 9094329) See_Comment H [Automated messa ge] The system which generated this result transmitted reference range: 95 - 109 mEq/L. The reference range was not used to interpret this result as normal/abnormal. POC A Glu (test code = 2339-0) 276 mg/dL 70-99 H POC A LA (test code = 224) See_Comment [Automated messa ge] The system which generated this result transmitted reference range: 0.5 - 2.2 mMol/L. The reference range was not used to interpret this result as normal/abnormal. POC A Ca Ion (test code = 53306-8) See_Comment [Automated messa ge] The system which generated this result transmitted reference range: 1.05 - 1.25 mMol/L. The reference range was not used to interpret this result as normal/abnormal. POC A Ca Ion (7.4) (test code = 0638996979) 1.18 mmol/L 1.05-1.25 POC Performing Location (test code = 6510719487) [facility] BG CLI Lab Interpretation (test code = 32575-4) Abnormal [facility] Arterial Blood Gas and Basic Ibcee3441-18-37 19:13:31* Test Item Value Reference Range Interpretation Comme nts POC A Temp (test code = 1479082956) DegC POC A Source (test code = 9232310311) ART POC A pH (test code = 2744-1) 7.35-7.45 POC A PCO2 (test code = 2019-8) See_Comment [Automated messa ge] The system which generated this result transmitted reference range: 35 - 45 mmHg. The reference range was not used to interpret this result as normal/abnormal. POC A PO2 (test code = 2703-7) See_Comment [Automated messa ge] The system which generated this result transmitted reference range: 80 - 100 mmHg. The reference range was not used to interpret this result as normal/abnormal. POC A HCO3 (test code = 1960-4) See_Comment [Automated messa ge] The system which generated this result transmitted reference range: 22 - 26 mMol/L. The reference range was not used to interpret this result as normal/abnormal. POC A BE (test code = 1925-7) See_Comment [Automated messa ge] The system which generated this result transmitted reference range: -2 - 2 mMol/L. The reference range was not used to interpret this result as normal/abnormal. POC A O2 Sat (calc) (test code = 2708-6) 100 % 95-100 POC A Hgb Tot (test code = 35803-9) 8.4 g/dL 11.2-15.7 L POC A Hct (calc) (test code = 99256-5) 25 % 34.1-44.9 L POC A Na (test code = 31314-2) See_Comment [Automated messa ge] The system which generated this result transmitted reference range: 135 - 145 mEq/L. The reference range was not used to interpret this result as normal/abnormal. POC A K (test code = 7158287) See_Comment [Automated messa ge] The system which generated this result transmitted reference range: 3.5 - 5.1 mEq/L. The reference range was not used to interpret this result as normal/abnormal. POC Chloride (test code = 7418075) See_Comment [Automated messa ge] The system which generated this result transmitted reference range: 95 - 109 mEq/L. The reference range was not used to interpret this result as normal/abnormal. POC A Glu (test code = 2339-0) 264 mg/dL 70-99 H POC A LA (test code = 224) See_Comment H [Automated messa ge] The system which generated this result transmitted reference range: 0.5 - 2.2 mMol/L. The reference range was not used to interpret this result as normal/abnormal. POC A Ca Ion (test code = 14666-7) See_Comment H [Automated messa ge] The system which generated this result transmitted reference range: 1.05 - 1.25 mMol/L. The reference range was not used to interpret this result as normal/abnormal. POC A Ca Ion (7.4) (test code = 3364608519) 1.28 mmol/L 1.05-1.25 H POC Performing Location (test code = 3355638814) [facility] BG CLI Lab Interpretation (test code = 36204-1) Abnormal [facility] Arterial Blood Gas and Basic Nqlfr6036-93-74 17:54:00* Test Item Value Reference Range Interpretation Comme nts POC A Temp (test code = 1466075793) DegC POC A Source (test code = 0300204373) ART POC A pH (test code = 2744-1) 7.35-7.45 POC A PCO2 (test code = 2019-8) See_Comment LL [Automated messa ge] The system which generated this result transmitted reference range: 35 - 45 mmHg. The reference range was not used to interpret this result as normal/abnormal. POC A PO2 (test code = 2703-7) See_Comment [Automated messa ge] The system which generated this result transmitted reference range: 80 - 100 mmHg. The reference range was not used to interpret this result as normal/abnormal. POC A HCO3 (test code = 1960-4) See_Comment L [Automated messa ge] The system which generated this result transmitted reference range: 22 - 26 mMol/L. The reference range was not used to interpret this result as normal/abnormal. POC A BE (test code = 1925-7) See_Comment L [Automated messa ge] The system which generated this result transmitted reference range: -2 - 2 mMol/L. The reference range was not used to interpret this result as normal/abnormal. POC A O2 Sat (calc) (test code = 2708-6) 100 % 95-100 POC A Hgb Tot (test code = 37319-1) 8.1 g/dL 11.2-15.7 L POC A Hct (calc) (test code = 86345-2) 24 % 34.1-44.9 L POC A Na (test code = 06931-1) See_Comment [Automated messa ge] The system which generated this result transmitted reference range: 135 - 145 mEq/L. The reference range was not used to interpret this result as normal/abnormal. POC A K (test code = 2095460) See_Comment [Automated messa ge] The system which generated this result transmitted reference range: 3.5 - 5.1 mEq/L. The reference range was not used to interpret this result as normal/abnormal. POC Chloride (test code = 2096304) See_Comment [Automated messa ge] The system which generated this result transmitted reference range: 95 - 109 mEq/L. The reference range was not used to interpret this result as normal/abnormal. POC A Glu (test code = 2339-0) 230 mg/dL 70-99 H POC A LA (test code = 224) UNABLE TO CALCUL ATE POC A Ca Ion (test code = 27336-0) See_Comment [Automated messa ge] The system which generated this result transmitted reference range: 1.05 - 1.25 mMol/L. The reference range was not used to interpret this result as normal/abnormal. POC A Ca Ion (7.4) (test code = 7179935436) 1.23 mmol/L 1.05-1.25 POC Performing Location (test code = 3466147770) [facility] BG CLI Lab Interpretation (test code = 33858-1) Abnormal [facility] Arterial Blood Gas and Basic Quomq4586-66-42 17:08:49* Test Item Value Reference Range Interpretation Comme nts POC A Temp (test code = 3711171917) DegC POC A Source (test code = 5550637739) ART POC A pH (test code = 2744-1) 7.35-7.45 POC A PCO2 (test code = 2019-8) See_Comment LL [Automated messa ge] The system which generated this result transmitted reference range: 35 - 45 mmHg. The reference range was not used to interpret this result as normal/abnormal. POC A PO2 (test code = 2703-7) See_Comment [Automated messa ge] The system which generated this result transmitted reference range: 80 - 100 mmHg. The reference range was not used to interpret this result as normal/abnormal. POC A HCO3 (test code = 1960-4) See_Comment L [Automated messa ge] The system which generated this result transmitted reference range: 22 - 26 mMol/L. The reference range was not used to interpret this result as normal/abnormal. POC A BE (test code = 1925-7) See_Comment L [Automated messa ge] The system which generated this result transmitted reference range: -2 - 2 mMol/L. The reference range was not used to interpret this result as normal/abnormal. POC A O2 Sat (calc) (test code = 2708-6) 100 % 95-100 POC A Hgb Tot (test code = 57949-5) 7.5 g/dL 11.2-15.7 L POC A Hct (calc) (test code = 33223-1) 23 % 34.1-44.9 L POC A Na (test code = 63851-1) See_Comment L [Automated messa ge] The system which generated this result transmitted reference range: 135 - 145 mEq/L. The reference range was not used to interpret this result as normal/abnormal. POC A K (test code = 9376287) See_Comment L [Automated messa ge] The system which generated this result transmitted reference range: 3.5 - 5.1 mEq/L. The reference range was not used to interpret this result as normal/abnormal. POC Chloride (test code = 6837048) See_Comment [Automated messa ge] The system which generated this result transmitted reference range: 95 - 109 mEq/L. The reference range was not used to interpret this result as normal/abnormal. POC A Glu (test code = 2339-0) 233 mg/dL 70-99 H POC A LA (test code = 224) UNABLE TO CALCUL ATE POC A Ca Ion (test code = 99236-5) See_Comment H [Automated messa ge] The system which generated this result transmitted reference range: 1.05 - 1.25 mMol/L. The reference range was not used to interpret this result as normal/abnormal. POC A Ca Ion (7.4) (test code = 2353564218) 1.31 mmol/L 1.05-1.25 H POC Performing Location (test code = 7492607011) [facility] BG CLI Lab Interpretation (test code = 78033-4) Abnormal [facility] Arterial Blood Gas and Comprehensive Nioiy5982 16:55:12* Test Item Value Reference Range Interpretation Comme nts POC A Temp (test code = 6410233553) DegC POC A Source (test code = 6592878066) ART POC A pH (test code = 2744-1) 7.35-7.45 L POC A PCO2 (test code = 2019-8) See_Comment LL [Automated messa ge] The system which generated this result transmitted reference range: 35 - 45 mmHg. The reference range was not used to interpret this result as normal/abnormal. POC A PO2 (test code = 2703-7) See_Comment [Automated messa ge] The system which generated this result transmitted reference range: 80 - 100 mmHg. The reference range was not used to interpret this result as normal/abnormal. POC A HCO3 (test code = 1960-4) See_Comment L [Automated messa ge] The system which generated this result transmitted reference range: 22 - 26 mMol/L. The reference range was not used to interpret this result as normal/abnormal. POC A BE (test code = 1925-7) See_Comment L [Automated messa ge] The system which generated this result transmitted reference range: -2 - 2 mMol/L. The reference range was not used to interpret this result as normal/abnormal. POC A O2 Sat (calc) (test code = 2708-6) 100 % 95-100 POC A O2 Sat (leidy) (test code = 2321675385) 99.9 % 95.0-100.0 POC A Oxyhgb (test code = 3405650082) 98.8 % 95-100 POC A Carboxy (test code = 1772771515) 0.8 % Non-Smoker: 0.0-2.0 Smoker: 0.0-9.0 Reference RangeNon-Smoker 0.0-2.0 ? ?Smoker 0.0-9.0 POC A Methgb (test code = 2615-3) 0.0-1.4 POC A Hgb Tot (test code = 12341-5) 8 g/dL 11.2-15.7 L POC A Hct (calc) (test code = 52002-3) 24 % 34.1-44.9 L POC A Na (test code = 06353-6) See_Comment L [Automated messa ge] The system which generated this result transmitted reference range: 135 - 145 mEq/L. The reference range was not used to interpret this result as normal/abnormal. POC A K (test code = 6023854) See_Comment [Automated messa ge] The system which generated this result transmitted reference range: 3.5 - 5.1 mEq/L. The reference range was not used to interpret this result as normal/abnormal. POC Chloride (test code = 4929157) See_Comment [Automated messa ge] The system which generated this result transmitted reference range: 95 - 109 mEq/L. The reference range was not used to interpret this result as normal/abnormal. POC A Glu (test code = 2339-0) 202 mg/dL 70-99 H POC A LA (test code = 224) UNABLE TO CALCUL ATE POC A Ca Ion (test code = 72619-3) See_Comment HH [Automated messa ge] The system which generated this result transmitted reference range: 1.05 - 1.25 mMol/L. The reference range was not used to interpret this result as normal/abnormal. POC A Ca Ion (7.4) (test code = 8670901076) 1.73 mmol/L 1.05-1.25 HH POC A PEEP (test code = 2959747514) cmH20 POC A %FIO2 (test code = 1317651223) 100 % POC Performing Location (test code = 5913614119) [facility]VI BG CLI Lab Interpretation (test code = 21203-4) Abnormal [facility] Ykxqooq1409-83-94 12:06:12* Test Item Value Reference Range Interpretation Comme nts POC Glu (test code = 9602315910) 188 mg/dL 70-99 H POC Glu Comment 1 (test code = 2116922791) Notified RN/MD POC Performing Location (nima t code = 6491981943) HV4 CIMU Lab Interpretation (test cod e = 05717-0) Abnormal [facility] Uvwsmwf3983-39-70 07:39:39* Test Item Value Reference Range Interpretation Comme nts POC Glu (test code = 6530645840) 145 mg/dL 70-99 H POC Performing Location (nima t code = 3759785100) HV4 CCU Lab Interpretation (test cod e = 78582-7) [facility] Waykw6196-34-74 18:12:49* Test Item Value Reference Range Interpretation Comme [facility] Product Code (test code = 25) [id number] Unit Number (test code = 1624) [id number] Unit ABO (test code = 4671834) O Unit RH (test code = 6221675) POS Crossmatch (test code = 5325696) Compatible Dispense Status (test code = 1623) Transfused Blood Expiration Date (test code = 530) Product Blood Type (test cod e = 532) Unit Volume (test code = 1322-7) 331 mL [facility] Vagfcvw5224-96-79 16:49:30* Test Item Value Reference Range Interpretation Comme nts POC Glu (test code = 4973869178) 145 mg/dL 70-99 H POC Performing Location (nima t code = 9434214540) HV4 CCU Lab Interpretation (test cod e = 98828-5) Abnormal [facility] Zafogau8771-25-25 11:55:11* Test Item Value Reference Range Interpretation Comme nts POC Glu (test code = 5762038473) 123 mg/dL 70-99 H POC Performing Location (nima t code = 7309096753) HV4 CCU Lab Interpretation (test cod e = 97340-8) Abnormal [facility] Wtagysj1592-46-00 07:58:23* Test Item Value Reference Range Interpretation Comme nts POC Glu (test code = 1681546098) 150 mg/dL 70-99 H POC Glu Comment 1 (test code = 5688637615) Notified RN/MD POC Performing Location (nima t code = 3059134267) [facility] CIMU Lab Interpretation (test cod e = 63548-5) Abnormal [facility] Iatwmzo9099-42-58 17:06:20* Test Item Value Reference Range Interpretation Comme nts POC Glu (test code = 4780856941) 127 mg/dL 70-99 H POC Performing Location (nima t code = 4091986705) 4 CCU Lab Interpretation (test cod e = 28500-4) Abnormal [facility] Nlyyapv7492-08-86 12:18:51* Test Item Value Reference Range Interpretation Comme nts POC Glu (test code = 7068752675) 224 mg/dL 70-99 H POC Glu Comment 1 (test code = 3231375925) Notified RN/MD POC Performing Location (nima t code = 0446802614) 4 CCU Lab Interpretation (test cod e = 03008-9) Abnormal [facility] Vbciyul1184-97-49 07:38:50* Test Item Value Reference Range Interpretation Comme nts POC Glu (test code = 0169279452) 146 mg/dL 70-99 H POC Performing Location (nima t code = 6978903670) 4 CCU Lab Interpretation (test cod e = 67186-8) Abnormal [facility] Venous Blood Gas and Comprehensive Zpltp2065-46-32 15:02:35* Test Item Value Reference Range Interpretation Comme nts POC V Temp (test code = 2530948108) DegC POC V Source (test code = 4083043128) OLIVA POC V PO2 (test code = 2705-2) See_Comment [Automated messa ge] The system which generated this result transmitted reference range: 20 - 49 mmHg. The reference range was not used to interpret this result as normal/abnormal. POC V pH (test code = 2746-6) 7.28-7.42 POC V PCO2 (test code = 2020-) See_Comment [Automated messa ge] The system which generated this result transmitted reference range: 38 - 52 mmHg. The reference range was not used to interpret this result as normal/abnormal. POC V Oxyhgb (test code = 0142487912) 48.1 % 95-100 L POC V O2 Sat (leidy) (test code = 0554372813) 48.9 % 40.0-70.0 POC V O2 Sat (calc) (test code = 2711-0) 51 % 40-70 POC V HCO3 (test code = 16379-7) 30 mmol/L 22-26 H POC V Carboxy (test code = 7817601824) 0.6 % Non-Smoker: 0.0-2.0 Smoker: 0.0-9.0 Reference RangeNon-Smoker 0.0-2.0 ? ?Smoker 0.0-9.0 POC V BE (test code = 1927-3) 4 mmol/L -2-2 H POC V Methgb (test code = 2617-9) 1 % 0.0-1.4 POC V Hgb Tot (test code = 73053-0) 9.1 g/dL 11.2-15.7 L POC V Hct (calc) (test code = 30477-1) 27 % 34.1-44.9 L POC V Na (test code = 92269-1) See_Comment L [Automated messa ge] The system which generated this result transmitted reference range: 135 - 145 mEq/L. The reference range was not used to interpret this result as normal/abnormal. POC V K (test code = 29459-6) See_Comment [Automated messa ge] The system which generated this result transmitted reference range: 3.5 - 5.1 mEq/L. The reference range was not used to interpret this result as normal/abnormal. POC V Cl (test code = 24287-4) See_Comment [Automated messa ge] The system which generated this result transmitted reference range: 95 - 109 mEq/L. The reference range was not used to interpret this result as normal/abnormal. POC V Glu (test code = 46319-7) 179 mg/dL 70-99 H POC V LA (test code = 2519-7) See_Comment [Automated messa ge] The system which generated this result transmitted reference range: 0.5 - 2.2 mMol/L. The reference range was not used to interpret this result as normal/abnormal. POC V Ca Ion (test code = 71413-4) See_Comment [Automated [employer] ge] The system which generated this result transmitted reference range: 1.05 - 1.25 mMol/L. The reference range was not used to interpret this result as normal/abnormal. POC V Ca Ion (7.4) (test code = 9410750922) See_Comment [Automated messa ge] The system which generated this result transmitted reference range: 1.05 - 1.25 mMol/L. The reference range was not used to interpret this result as normal/abnormal. POC Performing Location (test code = 9330115299) HVI BG CLI Lab Interpretation (test code = 62536-8) [facility] Giskzzj7825-80-64 12:43:24* Test Item Value Reference Range Interpretation Comme nts FVC (Predicted) (test code = 55610-5) 2.54 L FVC Pre (test code = 1823) 0.97 L FVC %Pre Pred (test code = 1817) 38 % FVC-LLN (test code = 8625362954) 1.88 L FVC ULN (test code = 3272) 3.23 L FEV1 (Predicted) (test code = 58082-6) 1.99 L FEV1 (test code = 5) 0.85 L FEV1 %Pre Pred (test code = 1800) 42 % FEV1-LLN (test code = 7964246535) 1.44 L FEV1 ULN (test code = 3269) 2.52 L FEV1/FVC Pred (test code = 1807) 79 % FEV1/FVC (Predicted) (test c ode = 86582-6) 87 % FEV1/FVC %Pre Pred (test cod e = 1805) 110 % NNH7PJM-BTK (test code = 6188170329) 67 % FEV1/FVC ULN (test code = 3271) 90 % FEF50 Pred (test code = 3581) L/sec FEF50 Pre (test code = 3580) L/sec FEF50 %Pre Pred (test code = 3577) 31 % FEF50 LLN (test code = 3578) L/sec FEF50 ULN (test code = 3582) L/sec PEF Pred (test code = 1791) L/sec PEF Pre (test code = 1790) L/sec PEF %Pre Pred (test code = 1788) 36 % LNB53-69% Pred (test code = 1785) L/sec LNL33-08% Pre (test code = 1813) L/sec XMD25-14% %Pre Pred (test co de = 1783) 52 % FKV4896-SLW (test code = 0730669296) L/sec FEV1/FVC ULN (test code = 3270) L/sec FIF50 Pred (test code = 3589) L/sec FIF50 Pre (test code = 3588) L/sec FIF50 %Pre Pred (test code = 3585) 33 % FIF50 LLN (test code = 3586) L/sec FIF50 ULN (test code = 3592) L/sec ZLE41HML98-QJSF (test code = 2888) 109 % JRY98MVS74-IWK (test code = 2887) 103 % DIZ60QGX59-%PRED-PRE (test c ode = 2884) 94 % MVV Pred (test code = 1849) 84 L/min MVV Pre (test code = 1848) 35 L/min MVV %Pre Pred (test code = 1847) 41 % MVV-LLN (test code = 2925) 66 L/min MVV ULN (test code = 3276) 102 L/min VC Pred (test code = 1924) 2.54 L VC Pre (test code = 1923) 1.03 L VC %Pre Pred (test code = 192) 40 % SVC LLN (test code = 3599) 1.88 L SVC ULN (test code = 3278) 3.23 L IC Pred (test code = 1846) 1.9 L IC Pre (test code = 1844) 0.63 L IC %Pre Pred (test code = 1830) 33 % ERV Pred (test code = 1780) 0.95 L ERV Pre (test code = 1779) 0.4 L ERV %Pre Pred (test code = 1777) 42 % CCO2DIM-WRAS (test code = 2895) 78 % KQK8GNZ-XNQ (test code = 2894) 82 % ERE4MPP-%PRED-PRE (test code = 2891) 104 % FLOYD (test code = FLOYD) [facility] Wqbxaqs0378-53-75 18:13:47* Test Item Value Reference Range Interpretation Comme nts POC Glu (test code = 9490211440) 194 mg/dL 70-99 H POC Glu Comment 1 (test code = 5893800394) Notified RN/MD POC Performing Location (nima t code = 0397093812) HV4 CCU Lab Interpretation (test cod e = 52482-8) Abnormal [facility] Mppdwrr7057-29-29 11:59:07* Test Item Value Reference Range Interpretation Comme nts POC Glu (test code = 1597016252) 133 mg/dL 70-99 H POC Performing Location (nima t code = 4990726044) HV4 CCU Lab Interpretation (test cod e = 30922-8) Abnormal [facility] Ogyeaxn3093-46-51 10:40:04* Test Item Value Reference Range Interpretation Comme nts POC Glu (test code = 8589958294) 155 mg/dL 70-99 H POC Glu Comment 1 (test code = 6550168345) Notified RN/MD POC Performing Location (nima t code = 0704376139) HV4 CCU Lab Interpretation (test cod e = 90996-5) Abnormal [facility] 12 sflk5350-38-50 17:22:05* Test Item Value Reference Range Interpretation Comme nts Ventricular Rate (test code = 3469921361) BPM Atrial Rate (test code = 7887293193) BPM [place] Interval (test code = 3269006972) 132 ms QRS Duration (test code = 0076379868) 70 ms QT/QTc (test code = 1911096712) 418 ms QTc Calculation (test code = 2471825092) 438 ms P-[place] (test code = 5399753991) degrees R-[place] (test code = 7674941630) degrees T-[place] (test code = 2013583356) degrees IMP (test code = IMP) PXN (test code = PXN) [facility] EpicTransthoracic echo (TTE) wpqlxumm7137-68-24 15:48:49* Test Item Value Reference Range Interpretation Comme nts RVOT Vmean (test code = 6600740267) 0.55 m/s LA Vol I (A4C) BSA (test code = 8001945896) 34.31 ml/m2 LA Vol I BSA (test code = 1793947535) 24.71 ml/m2 LVOT Vmax/AV Vmax (test code = 7944228554) 0.72 {ratio} Ao Root diam diastole (test code = 0438008210) 30 mm LVOT Vmean (test code = 4909518186) 0.63 m/s LV SV (A4C) (test code = 5613088524) 39.71 ml LV SI (A2C) (test code = 2439303805) 49.58 ml LV SV (BP) (test code = 3441560440) 44.07 ml LV SI (A4C) (test code = 4048561399) 25.09 ml/m2 LV SI (A2C) (test code = 0915563235) 31.33 ml/m2 LV SI (BP) (test code = 8844895696) 27.85 ml/m2 LVLs (A4C) (test code = 3749156195) 62.29 mm LVLs (A2C) (test code = 7602666929) 67.17 mm LVLd (A4C) (test code = 7803888013) 69.55 mm LVLd (A2C) (test code = 1882654912) 68.68 mm PV mn berny (test code = 7392767354) 0.67 m/s LV ESV A2C (test code = 8780233249) 44.62 mL LV EDV A4C (test code = 6569186833) 83.94 mL LA area A4C (test code = 2925476643) 18.5 cm2 LA area A2C (test code = 4256108966) 16 cm2 LV ESV A4C (test code = 6013442748) 44.23 mL LV EDV A2C (test code = 1859177103) 94.2 mL MV max berny (test code = 7878358363) 1.11 cm/s TR pk grad (test code = 9910712766) mmHg TAPSE (test code = 8387746373) 19 mm MR VTI (test code = 6083372936) 194 cm MV RVol PISA (test code = 0705051462) 25.5 mL MR mean berny (test code = 5467617798) 4.14 m/s MR PG (test code = 9135930422) mmHg LA ESV A2C (test code = 7868196899) 39.811067442093666 mL LA ESV A4C (test code = 3540078606) 39.575595031431289 mL MV mn berny (test code = 5375998829) 0.54 m/s LV est EF (test code = 6985343822) 49 % LA vol index (test code = 5555900089) 29.13 mL/m2 LV EDV BP (test code = 6905442461) 89.11 mL LV ESV BP (test code = 3175081168) 45.04 mL MV A pk berny (test code = 8649723109) 0.77 m/s MV PHT (test code = 4020639528) 64 ms MV VTI (test code = 3355108344) 24 cm MV EROA PISA (test code = 7837448423) 0.13 cm2 MV E pk berny (test code = 1054955084) 0.92 m/s PV mn grad (test code = 2126822041) mmHg MV pk grad (test code = 6085161737) mmHg AV pk grad (test code = 0858856927) mmHg LV stroke vol (test code = 6157922943) 61.96 ml MR pk berny (test code = 5491592637) 5.3 m/s MR PISA radius (test code = 3464121900) 6 mm MV Nyquist berny (test code = 4488695551) 0.31 m/s RVOT VTI (test code = 2662335329) 12.9 cm RVOT pk berny (test code = 4000105048) 0.84 m/s AV VTI (test code = 4551951183) 27.4 cm AV pk berny (test code = 6685248469) 1.3 m/s LVOT VTI (test code = 2170816494) 16.3 cm LVOT pk berny (test code = 4524826224) 0.94 m/s LVOT area (test code = 5030160271) 3.8 cm2 LVOT diam (test code = 5660866185) 22 mm MV DT (test code = 1968848778) 217 ms MV e' lateral berny (test code = 5709551807) 10.7 cm/s MV E/A ratio (test code = 6105947025) PV pk grad (test code = 9869356689) mmHg MV area cont eq (test code = 5265102421) 2.58 cm2 MV area PHT (test code = 4082564773) 3.44 cm2 MV mn grad (test code = 4752807160) mmHg LVOT pk grad (test code = 9259381413) mmHg AV mn grad (test code = 4865145985) mmHg RVOT mn grad (test code = 2181256982) mmHg RVOT pk grad (test code = 9662394968) mmHg MV E/e' septal (test code = 2505664730) TR pk berny (test code = 9748915468) 2.05 m/s MV effective regurgitant orrifice area (test code = 3338263921) 0.13 cm2 AV area pk berny (test code = 6796670340) 2.74 cm2 AV area cont VTI (test code = 9064314290) 2.26 cm2 LVOT mn grad (test code = 7490691974) mmHg RV-brown mid diam (test code = 1238794716) 28 cm RV-brown basal diam (test code = 5151724153) 29 cm RV-brown longitudinal diam (test code = 1770895276) 59 cm LV A4C EF (test code = 3591599622) 47 % LV A2C EF (test code = 6865051252) 53 % AV mn berny (test code = 4561287984) 0.81 m/s Est LVSP (test code = 6587590112) mmHg LVPWd (test code = 1656329858) 9 mm LA size (test code = 4843241730) 41 mm LA vol BP (test code = 1850398068) 46.1 ml LV biplane EF (test code = 3029343813) 49.5 % Fractional Shortening 2D (test code = 9368789499) 25 % LVIDs (test code = 2890982101) 39 mm IVSd (test code = 8211487708) 9 mm LVIDd (test code = 5613137978) 52 mm PV pk berny (test code = 2261607547) 0.99 m/s PV VTI (test code = 6982277) 21.3 cm MV E/e' lateral (test code = 6241505) MV e' septal berny (test code = 5135896) 7.4 cm/s LV ESV 2D (test code = 6304910) 65.91 mL LV EDV 2D (test code = 8818401) 129.51 mL IVSd 2D (test code = 5178421) 9 cm BSA (test code = 8549028373) 1.58 m2 LV stroke vol index (test code = 33515236) 39.15 ml/m2 LV LVIDd index (test code = 16850720) 32.86 mm/m2 LV ESV index BP (test code = 3783325843) 28.46 mL/m2 LVIDs index (test code = 83133649) 24.64 mm/m2 LV ESV index A2C (test code = 6464015670) 28.19 ml/m2 LV EDV index BP (test code = 4077769874) 56.31 mL/m2 LV ESV index A4C (test code = 4937106835) 27.95 ml/m2 LV EDV index A2C (test code = 7393753617) LV EDV index A4C (test code = 6161227959) 53.04 ml/m2 LV ESV index 2D (test code = 5170739634) 41.65 ml/m2 LV EDV index 2D (test code = 0314461693) 81.83 ml/m2 LV RWT 2D (test code = 1104855132) LV mass 2D (test code = 0039253389) 168.99 g LV mass index 2D (test code = 5498425281) 106.78 g/m2 LA diam systole Index (test code = 9615101231) 25.91 mm/m2 AV area index (test code = 1005650696) 1.43 cm2/m2 LV stroke vol index (test code = 7565022611) 39.15 mL/m2 AVAI (Vmax) BSA (test code = 4143270422) 1.73 cm2/m2 MV avg E/e' (test code = 9783245632) AV berny ratio (test code = 1522481383) RA vol (test code = 6762253847) 24.9 mL/m2 LV mass size 1 (test code = 8210827195) 169 cm RVSP (test code = 5362063) mmHg Est RA pressure (test code = 4284835730) mmHg sPAP (test code = 7613861331) mmHg RAP (test code = 0480968835) mmHg dPAP (test code = 4047967177) mmHg Radiology Study observation (narrative) (test code = 08494-8) FLOYD (test code = FLOYD) [facility] Xiihhhf4808-63-30 09:24:49* Test Item Value Reference Range Interpretation Comme nts POC Glu (test code = 5339757072) 136 mg/dL 70-99 H POC Performing Location (nima t code = 4271754815) HV5 HEART Lab Interpretation (test cod e = 93159-8) Abnormal [facility] Tuxkvvg6823-32-84 03:33:10* Test Item Value Reference Range Interpretation Comme nts POC Glu (test code = 8564096259) 154 mg/dL 70-99 H POC Performing Location (nima t code = 9907184634) [facility] HE[facility] Lab Interpretation (test cod e = 57572-5) Abnormal [facility] Hztkard0109-60-00 20:45:15* Test Item Value Reference Range Interpretation Comme nts POC Glu (test code = 4923811308) 156 mg/dL 70-99 H POC Performing Location (nima t code = 5727766752) 3E IMU Lab Interpretation (test cod e = 03330-0) Abnormal [facility] Ocebckr7110-58-20 17:39:07* Test Item Value Reference Range Interpretation Comme nts POC Glu (test code = 4482089808) 203 mg/dL 70-99 H POC Glu Comment 1 (test code = 0723065398) Notified RN/MD POC Performing Location (nima t code = 7455816791) 3E IMU Lab Interpretation (test cod e = 19228-4) Abnormal [facility] Arterial CG4+2024-07-30 12:54:45* Test Item Value Reference Range Interpretation Comme nts POC A Source (test code = 7415694904) ART POC pH (test code = 2745-8) 7.35-7.45 POC PCO2 (test code = 6) See_Comment H [Automated messa ge] The system which generated this result transmitted reference range: 35 - 45 mmHg. The reference range was not used to interpret this result as normal/abnormal. POC PO2 (test code = 2704-5) See_Comment LL [Automated messa ge] The system which generated this result transmitted reference range: 80 - 100 mmHg. The reference range was not used to interpret this result as normal/abnormal. POC CO2 (Calc) (test code = 92472-3) See_Comment [Automated messa ge] The system which generated this result transmitted reference range: 24 - 32 mEq/L. The reference range was not used to interpret this result as normal/abnormal. POC HCO3 (test code = 1961-2) See_Comment H [Automated messa ge] The system which generated this result transmitted reference range: 22 - 26 mMol/L. The reference range was not used to interpret this result as normal/abnormal. POC BE (test code = 1926-5) See_Comment H [Automated messa ge] The system which generated this result transmitted reference range: -2 - 2 mMol/L. The reference range was not used to interpret this result as normal/abnormal. POC O2 Sat (Calc) (test code = 2709-4) 57 % 95.0-100.0 L POC LA (test code = 2519-7) See_Comment [Automated messa ge] The system which generated this result transmitted reference range: 0.5 - 2.2 mMol/L. The reference range was not used to interpret this result as normal/abnormal. POC Performing Location (test code = 8796950051) [facility] Lab Interpretation (test code = 12190-7) Abnormal [facility] Activated Clotting Hkwd7607-04-55 12:44:44* Test Item Value Reference Range Interpretation Comme nts POC Activated Clotting Time (test code = 239) seconds POC Performing Location (nima t code = 4070627318) [facility]2 [facility] Rokmfgz4453-13-23 08:26:06* Test Item Value Reference Range Interpretation Comme nts POC Glu (test code = 3064979667) 187 mg/dL 70-99 H POC Glu Comment 1 (test code = 6898768236) Notified RN/MD POC Performing Location (nima t code = 6960050326) 3E IMU Lab Interpretation (test cod e = 64985-1) Abnormal [facility] Yyoizha4494-43-23 05:10:32* Test Item Value Reference Range Interpretation Comme nts POC Glu (test code = 7429413723) 165 mg/dL 70-99 H POC Glu Comment 1 (test code = 6688699405) Notified RN/MD POC Performing Location (nima t code = 2083609540) 3E IMU Lab Interpretation (test cod e = 59654-1) Abnormal [facility] Ymrnrab7719-25-82 00:12:42* Test Item Value Reference Range Interpretation Comme nts POC Glu (test code = 2429868309) 178 mg/dL 70-99 H POC Glu Comment 1 (test code = 6936184413) Notified RN/MD POC Performing Location (nima t code = 9822717635) 3E IMU Lab Interpretation (test cod e = 98254-0) Abnormal [facility] Kepqvbj3650-45-31 20:44:46* Test Item Value Reference Range Interpretation Comme nts POC Glu (test code = 0542427925) 196 mg/dL 70-99 H POC Glu Comment 1 (test code = 5423649104) Notified RN/MD POC Performing Location (nima t code = 9344947759) 3E IMU Lab Interpretation (test cod e = 57159-7) Abnormal [facility] Eespkco7441-38-10 19:11:10* Test Item Value Reference Range Interpretation Comme nts POC Glu (test code = 7517253131) 167 mg/dL 70-99 H POC Performing Location (nima t code = 7378340909) 3E IMU Lab Interpretation (test cod e = 28303-8) Abnormal [facility] Sbyltqb3205-10-26 11:20:31* Test Item Value Reference Range Interpretation Comme nts POC Glu (test code = 8610753012) 186 mg/dL 70-99 H POC Glu Comment 1 (test code = 6339650446) Notified RN/MD POC Performing Location (nima t code = 3505145013) 3E IMU Lab Interpretation (test cod e = 62125-4) Abnormal [facility] Wnhrsxb6259-10-31 08:31:56* Test Item Value Reference Range Interpretation Comme nts POC Glu (test code = 8199445673) 143 mg/dL 70-99 H POC Performing Location (nima t code = 0868241179) 3E IMU Lab Interpretation (test cod e = 16134-8) Abnormal [facility] Lrxqwzy7568-08-64 04:20:53* Test Item Value Reference Range Interpretation Comme nts POC Glu (test code = 1038484660) 208 mg/dL 70-99 H POC Glu Comment 1 (test code = 4363074277) Notified RN/MD POC Performing Location (nima t code = 5262522816) 3E IMU Lab Interpretation (test cod e = 71765-2) Abnormal [facility] Ysvijnz4312-66-62 00:24:15* Test Item Value Reference Range Interpretation Comme nts POC Glu (test code = 4893929348) 288 mg/dL 70-99 H POC Glu Comment 1 (test code = 6476065648) Notified RN/MD POC Performing Location (nima t code = 6218594699) 3E IMU Lab Interpretation (test cod e = 57109-9) Abnormal [facility] Iksbxvn3330-04-81 20:08:45* Test Item Value Reference Range Interpretation Comme nts POC Glu (test code = 2964274487) 362 mg/dL 70-99 H POC Performing Location (nima t code = 3055133003) 3E IMU Lab Interpretation (test cod e = 85610-3) Abnormal [facility] Icabxzi6633-57-33 17:42:31* Test Item Value Reference Range Interpretation Comme nts POC Glu (test code = 3877858026) 321 mg/dL 70-99 H POC Glu Comment 1 (test code = 4423928812) Notified RN/MD POC Performing Location (nima t code = 0800230472) 3E IMU Lab Interpretation (test cod e = 89889-6) [facility] mvhkchpc3509-62-74 17:26:20* Test Item Value Reference Range Interpretation Comme nts LA Vol I (A4C) BSA (test cod e = 6482601102) 37.7 ml/m2 LVOT Vmax/AV Vmax (test code = 0154201441) 0.53 {ratio} Ao Root diam diastole (test code = 7437245641) 29 mm LVOT Vmean (test code = 2387970268) 0.56 m/s LV SV (A4C) (test code = 6577964859) 51 ml LV SI (A4C) (test code = 5876568592) 32.9 ml/m2 LVLs (A4C) (test code = 1325105701) 54.1 mm LVLd (A4C) (test code = 5097662170) 64.8 mm LV EDV A4C (test code = 0988903454) 83.4 mL LA area A4C (test code = 5375523287) 20.1 cm2 LV ESV A4C (test code = 7565039798) 32.4 mL MV max berny (test code = 3117019734) 1.35 cm/s TR pk grad (test code = 8693811231) mmHg MR VTI (test code = 2250304660) 125 cm MR mean berny (test code = 0631234133) 3.17 m/s MR PG (test code = 1649950318) mmHg MV mn berny (test code = 2616182893) 0.826 m/s LV est EF (test code = 6918072129) 51 % MV VTI (test code = 5350463709) 18.8 cm MV E pk berny (test code = 9379202932) 1.06 m/s MV pk grad (test code = 1107082658) mmHg AV pk grad (test code = 0620901875) mmHg LV stroke vol (test code = 1192338080) 39 ml MR pk berny (test code = 9182738609) 3.79 m/s AV VTI (test code = 0052690699) 24 cm AV pk berny (test code = 8442746833) 1.64 m/s LVOT VTI (test code = 1826057965) 12.5 cm LVOT pk berny (test code = 5965807563) 0.87 m/s LVOT area (test code = 8688143862) 3.14 cm2 LVOT diam (test code = 3397202457) 20 mm PV pk grad (test code = 8924993527) mmHg MV area cont eq (test code = 2132583313) 2.09 cm2 MV mn grad (test code = 9312178627) mmHg LVOT pk grad (test code = 4943009247) mmHg AV mn grad (test code = 8695766716) mmHg TR pk berny (test code = 2670628895) 3.09 m/s Est RA pressure (test code = 7170131896) mmHg AV area pk berny (test code = 6610443545) 1.66 cm2 AV area cont VTI (test code = 4309010959) 1.64 cm2 LVOT mn grad (test code = 3333314510) mmHg LV A4C EF (test code = 8185843130) 61 % RAP (test code = 3415455737) mmHg AV mn berny (test code = 6755845650) 1.01 m/s Est LVSP (test code = 4218841089) mmHg LVPWd (test code = 1828485654) 6 mm LA size (test code = 1900706367) 36 mm Fractional Shortening 2D (te st code = 2107557340) 26 % LVIDs (test code = 2022614447) 33 mm IVSd (test code = 2286348051) 11 mm LVIDd (test code = 6084860415) 45 mm PV pk berny (test code = 1258575083) 0.72 m/s RVSP (test code = 5141522) mmHg LV ESV 2D (test code = 6569655) 45.4 mL LV EDV 2D (test code = 5394654) 92.9 mL IVSd 2D (test code = 3955145) 11 cm Radiology Study observation (narrative) (test code = 15335-4) FLOYD (test code = FLOYD) [facility] Dmztput6641-60-73 12:15:36* Test Item Value Reference Range Interpretation Comme nts POC Glu (test code = 5063368467) 173 mg/dL 70-99 H POC Glu Comment 1 (test code = 0618998543) Notified RN/MD POC Performing Location (nima t code = 3080021706) 3E IMU Lab Interpretation (test cod e = 63728-0) Abnormal [facility] Mkjrzlg3925-60-51 09:31:53* Test Item Value Reference Range Interpretation Comme nts POC Glu (test code = 9836032621) 185 mg/dL 70-99 H POC Glu Comment 1 (test code = 5806037458) Notified RN/MD POC Performing Location (nima t code = 5124015523) 3E IMU Lab Interpretation (test cod e = 45864-3) Abnormal [facility] Arterial Blood Gas Xoolp4882-19-59 05:04:08* Test Item Value Reference Range Interpretation Comme nts POC A Temp (test code = 0873914234) DegC POC A Source (test code = 5891016999) ART POC A pH (test code = 2744-1) 7.35-7.45 POC A PCO2 (test code = 2019-8) See_Comment L [Automated messa ge] The system which generated this result transmitted reference range: 35 - 45 mmHg. The reference range was not used to interpret this result as normal/abnormal. POC A PO2 (test code = 2703-7) See_Comment LL [Automated messa ge] The system which generated this result transmitted reference range: 80 - 100 mmHg. The reference range was not used to interpret this result as normal/abnormal. POC A HCO3 (test code = 1960-4) See_Comment [Automated messa ge] The system which generated this result transmitted reference range: 22 - 26 mMol/L. The reference range was not used to interpret this result as normal/abnormal. POC A BE (test code = 1925-7) See_Comment [Automated messa ge] The system which generated this result transmitted reference range: -2 - 2 mMol/L. The reference range was not used to interpret this result as normal/abnormal. POC A O2 Sat (calc) (test code = 2708-6) 91.1 % 95-100 L POC A %FIO2 (test code = 8913423070) 60 % POC A BIPAP(I) (test code = 5760415235) cmH20 POC A BIPAP(E) (test code = 0356856327) cmH20 POC A Mode #1 (test code = 9124130996) BiPAP POC A Spon R (bpm) (test code = 4871510291) bpm POC Performing Location (test code = 9647413559) [facility] Lab Interpretation (test code = 06252-3) Abnormal [facility] Cqkydnj5945-50-13 04:51:55* Test Item Value Reference Range Interpretation Comme nts POC Glu (test code = 3414129157) 216 mg/dL 70-99 H POC Glu Comment 1 (test code = 1020096406) Notified RN/MD POC Performing Location (nima t code = 2626659685) ICU Lab Interpretation (test cod e = 68765-6) Abnormal [facility] GLUCOSE (AUTOMATED)2019-12-22 18:53:00* Test Item Value Reference Range Interpretation Comme nts POCT GLU (test code = 4421057307) 323 mg/dL 70-110 H Lab Interpretation (test cod e = 70609-1) Abnormal [facility] WITHOUT NCMF8296-90-07 13:41:00* Test Item Value Reference Range Interpretation Comme nts WBC (test code = 6690-2) See_Comment [Automated message] The system which generated this result transmitted reference range: 4.30 - 11.10 10*3/?L. The reference range was not used to interpret this result as normal/abnormal. RBC (test code = 789-8) See_Comment L [Automated message] The system which generated this result transmitted reference range: 3.93 - 5.25 10*6/?L. The reference range was not used to interpret this result as normal/abnormal. HGB (test code = 718-7) 11.4 g/dL 11.6-15 L HCT (test code = 4544-3) 33.3 % 35.7-45.2 L MCH (test code = 785-6) 32.2 pg 25.9-32.8 MCV (test code = 787-2) 94.1 fL 80.6-95.5 MCHC (test code = 786-4) 34.2 g/dL 31.6-35.1 PLT (test code = 777-3) See_Comment [Automated message] The system which generated this result transmitted reference range: 166 - 358 10*3/?L. The reference range was not used to interpret this result as normal/abnormal. MPV (test code = 35032-8) 10.3 fL 9.5-12.9 RDW-CV (test code = 788-0) 12.1 % 12-15.5 RDW-SD (test code = 44493-6) 42.3 fL 39-49.9 NRBC x10^3 (test code = 4269768206) <0.01 See_Comment [Automated messa ge] The system which generated this result transmitted reference range: 10*3/?L. The reference range was not used to interpret this result as normal/abnormal. NRBC/100 WBC (test code = 6791666838) See_Comment [Automated [employer] ge] The system which generated this result transmitted reference range: 0.0 - 10.0 /100 WBCs. The reference range was not used to interpret this result as normal/abnormal. IPF % (test code = 0540156596) Lab Interpretation (test code = 61388-6) [facility] 13:22:00* Test Item Value Reference Range Interpretation Comme [facility] POCT GLU (test code = 4758075406) 174 mg/dL 70-110 H Lab Interpretation (test cod e = 36349-2) Abnormal [facility] Metabolic Panel (NA, K, CL, CO2, Glucose, BUN, Creatinine, CA)2019-12-22 09:46:00* Test Item Value Reference Range Interpretation Comme [facility] NA (test code = 3565707012) 135 mmol/L 135-145 K (test code = 9437998163) 4.7 mmol/L 3.5-5 CL (test code = 8773216586) 101 mmol/L 98-108 CO2 TOTAL (test code = 1129510553) 30 mmol/L 23-31 AGAP (test code = 2389934868) 2-16 BUN (test code = 0473729608) 11 mg/dL 7-23 GLUCOSE (test code = 2632880603) 199 mg/dL 70-110 H CREATININE (test code = 9479052668) 0.40 mg/dL 0.5-1.04 L CALCIUM (test code = 8845700612) 8.5 mg/dL 8.6-10.6 L eGFR Calculation (Non-) (test code = 3752639185) mL/min/1.73m2 eGFR Calculation () (test code = 7556286964) mL/min/1.73m2 FLOYD (test code = FLOYD) Association of Glomerular Filtration Rate (GFR) and Staging of Kidney Disease* + --+ --+ ------+| GFR (mL/min/1.73 m2) ?| With Kidney Damage ?| ?Without Kidney Damage+ --------+ --------+ +| ?>90 ?| ?Stage one ?| ? Normal ?+ ---+ ---+ -------+| ?60-89 ?| ?Stage two ?| ? Decreased GFR ? + --+ --+ ------+| ?30-59 ?| ?Stage three ?| ? Stage three ? + --+ --+ ------+| ?15-29 ?| ?Stage four ? | ? Stage four ?+ ---+ ---+ -------+| ?<15 (or dialysis) ? ?| ?Stage five ? | ? Stage five ?+ ---+ ---+ -------+ *Each stage assumes the associated GFR level has been in effect for at least three months. ?Stages 1 to 5, with or without kidney disease, indicate chronic kidney disease. Notes: Determination of stages one and two (with eGFR >59mL/min/1.73 m2) requires estimation of kidney damage for at least three months as defined by structural or functional abnormalities of the kidney, manifested by either:Pathological abnormalities or Markers of kidney damage (including abnormalities in the composition of the blood or urine or abnormalities in imaging tests). Lab Interpretation (test code = 96332-2) Abnormal [facility] GLUCOSE (AUTOMATED)2019-12-22 01:34:00* Test Item Value Reference Range Interpretation Comme [facility] POCT GLU (test code = 2555072804) 188 mg/dL 70-110 H Notified Provide r Lab Interpretation (test code = 52913-2) Abnormal [facility] GLUCOSE (AUTOMATED)2019-12-21 21:11:00* Test Item Value Reference Range Interpretation Comme [facility] POCT GLU (test code = 4899628118) 169 mg/dL 70-110 H Lab Interpretation (test cod e = 86313-5) [facility]2019-12-21 15:17:00* Test Item Value Reference Range Interpretation Comme [facility] SARS-CoV-2 Rapid ID NOW (test code = 55145-0) Not Detected Not Detected FLOYD (test code = FLOYD) ID NOW COVID-19 As say is an isothermal nucleic acid amplification test intended for the qualitative detection of nucleic acid from SARS-CoV-2 viral RNA in nasopharyngeal (DANCE TEACHER) specimens. It is used under Emergency Use Authorization (EUA) by FDA. The limit of detection (LOD) of the assay is 125 Genome Equivalents/mL. A positive result is indicative of the presence of SARS-CoV-2 RNA. ?Clinical correlation with patient history and other diagnostic information is necessary to determine patient infection status. A negative (Not Detected) result does not preclude SARS-CoV-2 infection. In patients with clinical symptoms and other tests that are consistent with SARS-CoV-2 infection, negative results should be treated as presumptive negative and a new specimen should be tested with alternative PCR molecular test. Invalid: Please collect a new specimen for repeat patient testing if clinically indicated. Lab Interpretation (test code = 47207-7) [facility] USEIQPEE5028-29-79 14:53:285.5 x 3.7 x 8.5 cm left gluteal abscess extending to the perianal spacewith associated overlying cellulitis. EXAM: CT ABDOMEN AND PELVIS WITH CONTRAST HISTORY: left gluteal abscess COMPARISON: None. DOSE: 191 mGy-cm TECHNIQUE: Axial images of the abdomen and pelvis were acquired afterintravenous administration of 99 mL Omnipaque 350. Coronal and sagittalreconstructions were also created. FINDINGS: KIDNEYS: Unremarkable visualized portion. PERITONEUM AND RETROPERITONEUM: No free air or free fluid. LYMPH NODES: Enhancing small size left inguinal node, likely reactive. GI TRACT: No dilation or wall thickening. Scattered diverticula withoutdiverticulitis. PELVIS/BLADDER: Prior hysterectomy. No pelvic masses. VESSELS: Unremarkable. BONES AND SOFT TISSUES: A 5.5 x 3.7 x 8.5 cm low-density collection in theleft buttock extending to the left perianal region (90/112, 6/72)consistent with abscess. Associated fat stranding and skin edema andenhancement. Small suprapubic ventral wall defect with herniation of fat(2/53). Small fat-containing umbilical hernia. No suspicious lytic orsclerotic bonelesions. [facility], Radiant Results Inft User - 12/21/2019 9:54 AM CDTEXAM: CT ABDOMEN AND PELVIS WITH CONTRASTHISTORY: left gluteal abscess COMPARISON: None.DOSE: 191 mGy-cmTECHNIQUE: Axial images of theabdomen and pelvis were acquired afterintravenous administration of 99 mL Omnipaque 350. Coronal and sagittalreconstructions were also created.FINDINGS:KIDNEYS: Unremarkable visualized portion.PERITONEUM AND RETROPERITONEUM: No free air or free fluid.LYMPH NODES: Enhancing small size left inguinal node, likely reactive.GI TRACT: No dilation or wall thickening. Scattered diverticula withoutdiverticulitis.PELVIS/BLADDER: Prior hysterectomy. No pelvic masses.VESSELS: Unremarkable.BONES AND SOFT TISSUES: A 5.5 x 3.7 x 8.5 cm low- density collection in theleft buttock extending to the left perianalregion (90/112, /)consistent with abscess. Associated fat stranding and skin edema andenhancement. Small suprapubic ventral wall defect with herniation of fat(2/53). Small fat-containing umbilicalhernia. No suspicious lytic orsclerotic bone lesions.IMPRESSION5.5 x 3.7 x 8.5 cm left gluteal abscess extending to the perianal spacewith associated overlying cellulitis.[facility] Whole [id number] 14:35:00* Test Item Value Reference Range Interpretation Comme [facility] LACTIC ACID (test code = 1168998432) 1.48 mmol/L [facility]2020-07-[facility] 14:10:00* Test Item Value Reference Range Interpretation Comme [facility] APTT Patient (test code = 3173-2) See_Comment [Automated message] The system which generated this result transmitted reference range: 23 - 38 Seconds. The reference range was not used to interpret this result as normal/abnormal. FLOYD (test code = FLOYD) The [facility] patient population mean normal value for aPTT is 30 seconds. Lab Interpretation (test code = 40116-8) Normal [facility] (PT) / [id number] 14:07:00 * Test Item Value Reference Range Interpretation Comme [facility] PROTIME PATIENT (test code = 5964-2) See_Comment [Automated [employer] ge] The system which generated this result transmitted reference range: 12.0 - 14.7 Seconds. The reference range was not used to interpret this result as normal/abnormal. INR (test code = 6301-6) Normal INR <1.1; Warfarin Therapeutic range 2.0 to 3.0 or 2.5 to 3.5, depending upon the indications. Lab Interpretation (test code = 36373-2) Normal [facility] Panel (NA, K, CL, CO2, GLUCOSE, BUN, CREATININE, CA)2019-12-21 14:05:00* Test Item Value Reference Range Interpretation Comme nts NA (test code = 1002794858) 136 mmol/L 135-145 K (test code = 2054239131) 3.8 mmol/L 3.5-5 CL (test code = 4165591235) 97 mmol/L 98-108 L CO2 TOTAL (test code = 3704291409) 27 mmol/L 23-31 AGAP (test code = 7072671606) 2-16 BUN (test code = 1176618493) 17 mg/dL 7-23 GLUCOSE (test code = 0503852328) 265 mg/dL 70-110 H CREATININE (test code = 5982714977) 0.51 mg/dL 0.5-1.04 CALCIUM (test code = 2947847761) 9.7 mg/dL 8.6-10.6 eGFR Calculation (Non-) (test code = 2732812015) mL/min/1.73m2 eGFR Calculation () (test code = 9722524299) mL/min/1.73m2 FLOYD (test code = FLOYD) Association of Glomerular Filtration Rate (GFR) and Staging of Kidney Disease* + --+ --+ ------+| GFR (mL/min/1.73 m2) ?| With Kidney Damage ?| ?Without Kidney Damage+ --------+ --------+ +| ?>90 ?| ?Stage one ?| ? Normal ?+ ---+ ---+ -------+| ?60-89 ?| ?Stage two ?| ? Decreased GFR ? + --+ --+ ------+| ?30-59 ?| ?Stage three ?| ? Stage three ? + --+ --+ ------+| ?15-29 ?| ?Stage four ? | ? Stage four ?+ ---+ ---+ -------+| ?<15 (or dialysis) ? ?| ?Stage five ? | ? Stage five ?+ ---+ ---+ -------+ *Each stage assumes the associated GFR level has been in effect for at least three months. ?Stages 1 to 5, with or without kidney disease, indicate chronic kidney disease. Notes: Determination of stages one and two (with eGFR >59mL/min/1.73 m2) requires estimation of kidney damage for at least three months as defined by structural or functional abnormalities of the kidney, manifested by either:Pathological abnormalities or Markers of kidney damage (including abnormalities in the composition of the blood or urine or abnormalities in imaging tests). Lab Interpretation (test code = 37645-9) Abnormal [facility] Function [facility] (ALB, T.PRO, BILI T, BU/BC, ALT, AST, ALK PHOS)2019-12-21 14:05:00* Test Item Value Reference Range Interpretation Comme nts TOTAL BILI (test code = 7013598516) 0.5 mg/dL 0.1-1.1 BILI UNCON (test code = 6610650892) 0.5 mg/dL 0.1-1.1 BILI CONJ (test code = 5068320240) 0.0 mg/dL 0-0.3 T PROTEIN (test code = 7430288145) 8.5 g/dL 6.3-8.2 H ALBUMIN (test code = 9141418507) 4.5 g/dL 3.5-5 ALK PHOS (test code = 6276203921) 184 U/L 34-122 H ALTv (test code = 1742-6) 15 U/L 5-35 AST(SGOT) (test code = 7853284024) 27 U/L 13-40 Lab Interpretation (test cod e = 27471-1) Abnormal [facility] HospitalCB with [id number] 13:47:00* Test Item Value Reference Range Interpretation Comme nts WBC (test code = 6690-2) See_Comment H [Automated message] The system which generated this result transmitted reference range: 4.30 - 11.10 10*3/?L. The reference range was not used to interpret this result as normal/abnormal. RBC (test code = 789-8) See_Comment [Automated message] The system which generated this result transmitted reference range: 3.93 - 5.25 10*6/?L. The reference range was not used to interpret this result as normal/abnormal. HGB (test code = 718-7) 14.4 g/dL 11.6-15 HCT (test code = 4544-3) 41.6 % 35.7-45.2 MCV (test code = 787-2) 93.9 fL 80.6-95.5 MCH (test code = 785-6) 32.5 pg 25.9-32.8 MCHC (test code = 786-4) 34.6 g/dL 31.6-35.1 RDW-SD (test code = 15542-6) 42.4 fL 39-49.9 RDW-CV (test code = 788-0) 12.2 % 12-15.5 PLT (test code = 777-3) See_Comment H [Automated message] The system which generated this result transmitted reference range: 166 - 358 10*3/?L. The reference range was not used to interpret this result as normal/abnormal. MPV (test code = 82751-6) 10.7 fL 9.5-12.9 NRBC/100 WBC (test code = 4880170788) See_Comment [Automated message] The system which generated this result transmitted reference range: 0.0 - 10.0 /100 WBCs. The reference range was not used to interpret this result as normal/abnormal. NRBC x10^3 (test code = 0701646462) <0.01 See_Comment [Automated message] The system which generated this result transmitted reference range: 10*3/?L. The reference range was not used to interpret this result as normal/abnormal. GRAN MAT (NEUT) % (test code = 770-8) 81.2 % IMM GRAN % (test code = 2207837226) 0.40 % LYMPH % (test code = 736-9) 11.3 % MONO % (test code = 5905-5) 6.8 % EOS % (test code = 713-8) 0.1 % BASO % (test code = 706-2) 0.2 % GRAN MAT x10^3(ANC) (test code = 4283371415) 13.58 10*3/uL 1.88-7.09 H IMM GRAN x10^3 (test code = 8195784327) 0.07 10*3/uL 0-0.06 H LYMPH x10^3 (test code = 731-0) 1.89 10*3/uL 1.32-3.29 MONO x10^3 (test code = 742-7) 1.14 10*3/uL 0.33-0.92 H EOS x10^3 (test code = 711-2) <0.03 0.03-0.39 L BASO x10^3 (test code = 704-7) 0.03 10*3/uL 0.01-0.07 Lab Interpretation (test code = 89519-2) [facility]normal [facility] Consult Notes Date/Time Note Provider Source 2024-08-21 08:26:22 NUTRITION ASSESSMENT - ADULT Unit: [facility] Reason for RD Encounter: Nutrition Follow up Findings Nutrition Diagnosis: Nutrition Diagnosis: Increased nutrient needs related to malnutrition/malabsorption as evidenced by loss of muscle mass and unintentional weight loss. *Malnutrition Diagnosis: Severe malnutrition Related To: Acute illness/injury As Evidenced By: Unintentional weight loss, Severe muscle loss, Severe fat loss Interventions and Recommendation: Continue supplements due to malnutrition NUTRITION RISK: Moderate, in 5-7 days Next Date for Nutrition Services Follow Up: 08/28/24 Communication : ALEJO Elizondo with multidisciplinary team Current Nutrition: Dietary Orders (From admission, onward) Start Ordered 08/15/24 1238 Adult Diet Heart Healthy Diet effective now Question: Diet type Answer: Heart Healthy 08/15/24 1237 Orderered Tube Feeds and Supplements Medication Dose Route Frequency Provider Last Rate Last Admin Boost Glucose Control liquid 237 mL 1 Container Oral BID with meals Prateek Guzman MD 237 mL at 08/21/24 0904 Nutrition Visit Information: 08/21: Visited with patient at bedside. Reported eating well and taking her protein shakes. NFPE performed, severe deficits noted. Reported weight prior to admission was 125 pounds, current weight 113 pounds. 08/14: NPO this morning for potential impella decannulation. Since diet advanced, pt has been eating well - 75% of meals + ONS. She denies any GI related issues at this time. If does not go for decannulation today, advance diet and let pt eat today. 08/10: Passed for diet with speech yesterday - regular/thin liquids. DHT removed yesterday evening. ONS initiated for nutrition support. NPO this morning for MARQUES and Mitraclip later today. Will continue to monitor intake. 08/09: Tube feeds initiated yesterday evening. Infusing at 50 ml/hr this morning, continuing to advance to goal rate of 65 ml/hr. Speech planning to perform FEES today. Pt reports normal appetite and PO intake prior to hospitalization. Recalls her UBW ~120s lbs. Noted moderate losses on NFPE today, could be age-related. Weaning impella. 08/08: Tube feeding consult placed. DHT placed yesterday (in stomach). Team okay with initiating tube feeds today. Also plan to consult speech to assess swallow. 08/07: S/p PCI, requiring VA-ECMO and impella. ECMO decannulated, remains intubated and on impella. Epi @ 3. NGT in place, no EN initiated. If no plans to extubate today, recommend starting EN for nutrition support. Per EMR documentation, pt was eating well prior to surgery. Anthropometrics: Height: 160 cm (5' 2.99") Height Method: Stated Weight: 135 lbs (08/07), 130 lbs (08/14), 113 pounds (08/21) Weight Method: Standing scale Body mass index is 20.16 kg/m?. [place] body weight: 52.4 kg (115 lb 7.7 oz) Wt Readings from Last 10 Encounters: 08/21/24 51.6 kg (113 lb 12.1 oz) 07/28/24 54 kg (119 lb 0.8 oz) 07/27/24 57.4 kg (126 lb 8.7 oz) 9% weight loss x3 weeks (since admission) UBW - 123 lbs per pt Estimated Nutrition Needs: Calculated Energy Needs Using Equations Height: 1.6 m (5' 2.99") Weight Used for Equation Calculations: 61.2 kg (135 lb) Energy Equation Used: Rule of thumb (kcal/kg) Energy Lower Range: 25 (kcal/kg) Energy Upper Range: 30 (kcal/day) Energy Needs Lower Range: 1531 kcal/day (kcal/day) Energy Needs Upper Range: 1837 kcal/day Minute Ventilation (L/min): 6.9 L/min Temp: 36.6 ?C (97.8 ?F) Estimated Protein Needs (g/kg) Protein Lower Range: 1.5 (g/kg) Protein Upper Range: 2.0 (g/day) Protein Lower Range: 92 g/day (g/day) Protein Upper Range: 122 g/day Fluid Needs Fluid Needs Method: Or per MD Nutrition Physical Findings per network specialist: Orientation Level: Oriented X4 O2 Delivery Method: Nasal cannula Gastrointestinal (WDL): WDL Abdomen Inspection: Soft; Rounded Abdominal Tenderness: Soft; Nontender Bowel Sounds: All quadrants Bowel Sounds (All Quadrants): Active Last BM Date: 08/20/24 Gastrointestinal Symptoms: Diarrhea LUE: Full movement RUE: Full movement LLE: Full movement RLE: Full movement Edema: Generalized Generalized Edema: Non-pitting LUE Edema: Non-pitting RUE Edema: Non-pitting LLE Edema: +1 RLE Edema: Non-pitting Wound 07/28/24 Other (Comments) Left;Posterior Hand (Active) Wound 08/03/24 Infiltration/Extravasation Anterior;Left;Upper Arm (Active) Wound 08/06/24 Surgical Right Subclavian (Active) Wound 08/06/24 Surgical Anterior;Proximal;Right Thigh (Active) Wound 08/11/24 Anterior;Left;Proximal Thigh (Active) Wound 08/16/24 Anterior Arm (Active) Nutrition Focused Physical Exam - Muscles and Fat: Assessment of Muscle Status Date Assessed: 08/21/24 Muscle Status: No change from prior exam [place] Region: Severe deficit: Deep hollowing/scooping, lacking muscle to the touch, facial bone structure very defined Clavicle Bone Region: Severe deficit: Protruding, prominent bone with low surrounding muscle when palpated Clavicle Acromion Bone Region: Severe deficit: Shoulder to arm joint looks square Scapular Bone Region: Severe deficit: Prominent, visible scapula bone Dorsal Hands Region: Severe deficit: Depressed areas between dorsal bones, particularly between thumb-forefinger Anterior Thigh Region: Severe deficit: Depressive line on thigh Patellar Region: Severe deficit: Bones prominent Calves-Posterior Region: Severe deficit: Thin, minimal to no muscle definition Assessment of Fat Status Date Assessed: 08/21/24 Fat Status: No change from prior exam Orbital Region: Severe deficit: Hollow look, depressions, dark circles, loose skin Cheek Region (Buccal Fat Pads): Severe deficit: Hollow, sunken, narrow cheeks and prominence of bony structure / Minimal to no bounce back of fat pads Upper Arm Region: Jjgb-jv-flehpwfz deficit: Some depth pinch, not ample Thoracic and Lumbar Region: Wkzm-oi-uveqylvb deficit: Ribs somewhat apparent, depressions between not very pronounced Basic Information: Admitting diagnosis: Triple vessel coronary artery disease [I25.10] Clinical course: 69 yo female w/ PMH including HTN, DM, CAD and tobacco abuse who was transferred to [facility] for revascularization after LHC at [facility] revealed multivessel disease with severe L main disease. Other relevant events at OSH included cellulitis 2/2 to spider bite and hypoxic respiratory failure requiring bipap, afib RVR and possible new diagnosis of CHF (EF 45-50%). . On 08/06 she underwent PCI to LM-LAD with SARAH x4 complicated by cardiac arrest x2 where she was cannulated with VA ECMO. Found to have acute stent thrombosis s/p PTCA. 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 S/p ECMO decannulation 08/06. S/p mitraclip 08/10. Medications: amiodarone, 200 mg, Oral, Daily apixaban, 5 mg, Oral, q12h DARYL aspirin, 81 mg, Oral, Daily atorvastatin, 40 mg, Oral, Daily Boost Glucose Control, 1 Container, Oral, BID with meals [Held by provider] dapagliflozin, 10 mg, Oral, Daily folic acid, 1 mg, Oral, Daily [Held by provider] furosemide, 40 mg, Oral, BID losartan, 12.5 mg, Oral, Daily pantoprazole, 40 mg, Oral, Daily before breakfast polyethylene glycol (PEG) 3350, 17 g, Oral, BID sennosides, 1 tablet, Oral, BID ticagrelor, 90 mg, Oral, q12h DARYL PRN medications: bisacodyl, calcium gluconate, calcium gluconate, chlorhexidine, dextrose, dextrose, glucagon, insulin lispro, magnesium oxide, magnesium sulfate, magnesium sulfate, magnesium sulfate, phenol, potassium & sodium phosphates, potassium chloride, potassium chloride, potassium chloride, Potassium chloride, potassium phosphate, potassium phosphate, sodium chloride, sodium chloride, sodium chloride, sodium phosphate, sodium phosphate, traMADol Labs: Pertinent Labs : Lab Results Component Value Date Sodium Lvl 137 08/21/2024 Potassium Lvl 4.0 08/21/2024 Chloride Lvl 101 08/21/2024 CO2 Lvl 27.7 08/21/2024 BUN 31 (H) 08/21/2024 Creatinine Lvl 1.31 (H) 08/21/2024 Glucose Lvl 141 (H) 08/21/2024 POC Glu 129 (H) 08/21/2024 Lab Results Component Value Date Calcium Lvl 8.4 08/21/2024 Magnesium 2.08 08/21/2024 Phosphorus Lvl 4.2 08/21/2024 Lab Results Component Value Date AST 29 08/20/2024 ALT 30 08/20/2024 Alkaline Phosphatase 142 (H) 08/20/2024 Lab Results Component Value Date Hgb A1C 6.45 (H) 07/31/2024 Review / Management: I/O 24 HRS: Intake/Output Summary (Last 24 hours) at 08/21/2024 1151 Last data filed at 08/21/2024 0800 Gross per 24 hour Intake 476 ml Output 1150 ml Net -674 ml Unmeasured Stool Occurrence: 1 Monitoring and Evaluation: MONITORING AND EVALUATION: Digestive/abdominal assessment, Nutrition Intake : EN intake and tolerance, and Labs: nutrition-related GOAL: >75% of estimated needs met: Evaluation : Continues to meet and >90% of estimated needs met: Evaluation : Met Donna Ulloa MS, RDN, LD, CNSC [employer] [phone] Wknd and PM (after 5 PM- pager [phone] T [facility] 2024-08-17 08:46:46 Associated Order(s): IP SCREENING REFERRAL TO NUTRITION SERVICES Nutrition Brief Update date - New SR for low BMI. RD already following patient since admission. ONS added to aid with meeting nutrient needs. No changes to plan at this time. Dietary Orders (From admission, onward) Start Ordered 08/15/24 1238 Adult Diet Heart Healthy Diet effective now Question: Diet type Answer: Heart Healthy 08/15/24 1237 Orderered Tube Feeds and Supplements Medication Dose Route Frequency Provider Last Rate Last Admin Boost Glucose Control liquid 237 mL 1 Container Oral BID with meals Prateek Guzman MD 237 mL at 08/16/24 1840 PO/EN/PN Intakes: Percent Meals Eaten for the past 48 hrs: Percent Meals Eaten (%) 08/16/24 1800 50 08/16/24 1000 100 Donna Ulloa MS, RDN, LD, CNSC [employer] [phone] Wknd and PM (after 5 PM- pager [phone] Bharathi Riley 2024-08-14 08:08:42 NUTRITION ASSESSMENT - ADULT Unit: [facility] Reason for RD Encounter: Nutrition Follow up Findings Nutrition Diagnosis: Nutrition Diagnosis: Inadequate oral intake related to recent surgery as evidenced by NPO status and intubation. EVALUATION : Resolved * Interventions and Recommendation: Encourage PO intake and ONS consumption (vanilla) NUTRITION RISK: Moderate, in 5-7 days Next Date for Nutrition Services Follow Up: 08/21/24 Communication : ALEJO Elizondo with multidisciplinary team Current Nutrition: Dietary Orders (From admission, onward) Start Ordered 08/14/24 0608 NPO Diet NPO except: Sips with meds Diet effective now Question: NPO except: Answer: Sips with meds 08/14/24 0607 Orderered Tube Feeds and Supplements Medication Dose Route Frequency Provider Last Rate Last Admin Boost Glucose Control liquid 237 mL 1 Container Oral BID with meals Prateek Guzman MD 237 mL at 08/13/24 1742 PO/EN/PN Intakes: Percent Meals Eaten for the past 48 hrs: Percent Meals Eaten (%) 08/13/24 1742 75 08/13/24 1300 66 08/13/24 1122 66 08/12/24 1600 75 08/12/24 1200 50 Nutrition Visit Information: 08/14: NPO this morning for potential impella decannulation. Since diet advanced, pt has been eating well - 75% of meals + ONS. She denies any GI related issues at this time. If does not go for decannulation today, advance diet and let pt eat today. 08/10: Passed for diet with speech yesterday - regular/thin liquids. DHT removed yesterday evening. ONS initiated for nutrition support. NPO this morning for MARQUES and Mitraclip later today. Will continue to monitor intake. 08/09: Tube feeds initiated yesterday evening. Infusing at 50 ml/hr this morning, continuing to advance to goal rate of 65 ml/hr. Speech planning to perform FEES today. Pt reports normal appetite and PO intake prior to hospitalization. Recalls her UBW ~120s lbs. Noted moderate losses on NFPE today, could be age-related. Weaning impella. 08/08: Tube feeding consult placed. DHT placed yesterday (in stomach). Team okay with initiating tube feeds today. Also plan to consult speech to assess swallow. 08/07: S/p PCI, requiring VA-ECMO and impella. ECMO decannulated, remains intubated and on impella. Epi @ 3. NGT in place, no EN initiated. If no plans to extubate today, recommend starting EN for nutrition support. Per EMR documentation, pt was eating well prior to surgery. Anthropometrics: Height: 160 cm (5' 3") Height Method: Stated Weight: 135 lbs (08/07), 130 lbs (08/14) Weight Method: Bed scale Body mass index is 23.16 kg/m?. [place] body weight: 52.4 kg (115 lb 8.3 oz) Adjusted ideal body weight: 55.2 kg (121 lb 9.7 oz) Wt Readings from Last 10 Encounters: 08/14/24 59.3 kg (130 lb 11.7 oz) 07/28/24 54 kg (119 lb 0.8 oz) 07/27/24 57.4 kg (126 lb 8.7 oz) UBW - 123 lbs per pt Estimated Nutrition Needs: Calculated Energy Needs Using Equations Height: 1.6 m (5' 3") Weight Used for Equation Calculations: 61.2 kg (135 lb) Energy Equation Used: Rule of thumb (kcal/kg) Energy Lower Range: 25 (kcal/kg) Energy Upper Range: 30 (kcal/day) Energy Needs Lower Range: 1531 kcal/day (kcal/day) Energy Needs Upper Range: 1837 kcal/day Minute Ventilation (L/min): 6.9 L/min Temp: 36.7 ?C (98.1 ?F) Estimated Protein Needs (g/kg) Protein Lower Range: 1.5 (g/kg) Protein Upper Range: 2.0 (g/day) Protein Lower Range: 92 g/day (g/day) Protein Upper Range: 122 g/day Fluid Needs Fluid Needs Method: Or per MD Nutrition Physical Findings per network specialist: Orientation Level: Oriented X4 O2 Delivery Method: Nasal cannula Gastrointestinal (WDL): WDL Abdomen Inspection: Soft; Flat Abdominal Tenderness: Nontender Bowel Sounds: All quadrants Bowel Sounds (All Quadrants): Active Last BM Date: 08/13/24 Gastrointestinal Symptoms: Diarrhea LUE: Full movement RUE: Limited movement LLE: Full movement RLE: Full movement Edema: Left upper extremity; Right upper extremity Generalized Edema: Non-pitting LUE Edema: Non-pitting RUE Edema: Non-pitting LLE Edema: Non-pitting RLE Edema: Non-pitting Wound 07/28/24 Other (Comments) Left;Posterior Hand (Active) Wound 08/03/24 Infiltration/Extravasation Anterior;Left;Upper Arm (Active) Wound 08/06/24 Surgical Right Subclavian (Active) Wound 08/06/24 Surgical Anterior;Proximal;Right Thigh (Active) Wound 08/11/24 Anterior;Left;Proximal Thigh (Active) Nutrition Focused Physical Exam - Muscles and Fat: Assessment of Muscle Status Date Assessed: 08/14/24 Muscle Status: No change from prior exam [place] Region: Kjhw-bp-hfqaarfd deficit: Slight depression Dorsal Hands Region: Serx-rv-owfoqrkq deficit: Slight depression between dorsal bones Anterior Thigh Region: Diux-uk-oqwlhgpf deficit: Mild depression on inner thigh; Rwvc-pc-lhzzampu deficit: Not well developed Patellar Region: Dzvo-hu-nvkayldf deficit: Knee cap more prominent Calves-Posterior Region: Kfqm-rh-kzabqcmb deficit: Not well-developed Assessment of Fat Status Date Assessed: 08/14/24 Fat Status: No change from prior exam Orbital Region: Wrmj-or-kqeelzbd deficit: Somewhat hollow look, slightly dark circles Upper Arm Region: Waim-ws-feakdqfr deficit: Some depth pinch, not ample Basic Information: Admitting diagnosis: Triple vessel coronary artery disease [I25.10] Clinical course: 69 yo female w/ PMH including HTN, DM, CAD and tobacco abuse who was transferred to [facility] for revascularization after LHC at [facility] revealed multivessel disease with severe L main disease. Other relevant events at OSH included cellulitis 2/2 to spider bite and hypoxic respiratory failure requiring bipap, afib RVR and possible new diagnosis of CHF (EF 45-50%). Medications: albumin human, 25 g, Intravenous, Once aspirin, 81 mg, Oral, Daily atorvastatin, 40 mg, Oral, Daily Boost Glucose Control, 1 Container, Oral, BID with meals ferric gluconate (Ferrlecit) IVPB, 250 mg, Intravenous, Daily folic acid, 1 mg, Oral, Daily octreotide, 100 mcg, Subcutaneous, TID pantoprazole, 40 mg, Intravenous, q12h DARYL polyethylene glycol (PEG) 3350, 17 g, Oral, Daily sennosides, 1 tablet, Oral, BID sodium chloride, 100 mL, Intravenous, Once thiamine, 100 mg, Nasogastric, Daily ticagrelor, 90 mg, Oral, q12h DARYL vancomycin, 750 mg, Intravenous, q12h amiodarone, 1 mg/min [Held by provider] bumetanide, 0.25 mg/hr, Last Rate: 0.25 mg/hr (08/14/24 0709) [Held by provider] heparin, 500 Units/hr, Last Rate: Stopped (08/11/24 1900) sodium bicarbonate 25 mEq in dextrose 5 % 1,000 mL infusion, 0.1-40 mL/hr, Last Rate: 10.1 mL/hr (08/14/24 0600) PRN medications: calcium gluconate, chlorhexidine, dextrose, dextrose, glucagon, insulin lispro, magnesium sulfate, phenol, potassium & sodium phosphates OR potassium & sodium phosphates, potassium chloride OR potassium chloride OR potassium chloride OR Potassium chloride, sodium chloride, sodium chloride, sodium chloride, sodium phosphates 45 mmol in sodium chloride 0.9 % 100 mL IVPB, traMADol, Pharmacy to dose vancomycin AND Vancomycin Pharmacy Dosing Labs: Pertinent Labs : Lab Results Component Value Date POC V Na 134 (L) 08/14/2024 Sodium Lvl 139 08/14/2024 POC V K 4.1 08/14/2024 Potassium Lvl 4.1 08/14/2024 POC V Cl 99 08/14/2024 Chloride Lvl 101 08/14/2024 CO2 Lvl 29.1 08/14/2024 BUN 12 08/14/2024 Creatinine Lvl 0.63 08/14/2024 POC V Glu 145 (H) 08/14/2024 Glucose Lvl 127 (H) 08/14/2024 POC Glu 136 (H) 08/14/2024 Lab Results Component Value Date Calcium Lvl 8.5 08/14/2024 Magnesium 2.08 08/14/2024 Phosphorus Lvl 3.4 08/14/2024 Lab Results Component Value Date AST 49 (H) 08/14/2024 ALT 62 (H) 08/14/2024 Alkaline Phosphatase 140 (H) 08/14/2024 Lab Results Component Value Date Hgb A1C 6.45 (H) 07/31/2024 Review / Management: I/O 24 HRS: Intake/Output Summary (Last 24 hours) at 08/14/2024 0928 Last data filed at 08/14/2024 0600 Gross per 24 hour Intake 1291.06 ml Output 4955 ml Net -3663.94 ml Unmeasured Stool Occurrence: 1 Monitoring and Evaluation: MONITORING AND EVALUATION: Digestive/abdominal assessment, Nutrition Intake : EN intake and tolerance, and Labs: nutrition-related GOAL: Initiate nutrition: Evaluation : Met and >75% of estimated needs met: Evaluation : Met Registered Dietitian: Tiana Boucher MPH, RD, LD, [facility] Mon-Fri Spectra: [phone] Wknd/on-call pager: [phone] Nutrition [facility] 2024-08-13 16:04:34 GASTROENTEROLOGY INPATIENT CONSULT SERVICE CONSULT NOTE Consult requested by John Bruno MD Patient Name: Nichelle Hampton Primary Care Physician: PCP Date of admission: 07/31/2024 Date of Service: 08/13/2024 Reason for Consultation: Melena HPI 1 episode of dark bowel movement last night, small volume per nurse possibly old blood. Patient denies any nausea, vomiting, abdominal pain. Hemoglobin has been stable Pertinent History Past Medical History: Past Medical History: Diagnosis Date Diabetes mellitus (HCC) PATIENT CLAIMED THAT SHE HAS DIABETES Past Surgical History: Past Surgical History: Procedure Laterality Date ESOPHAGOGASTRODUODENOSCOPY 08/12/2024 EGD 08/12/2024 Hasmukh Boss MD [facility] GI LAB FamHx: Family History: Problem Relation Name Age of Onset Diabetes Mother No Known Problems Father SocHx: Social History Tobacco Use Smoking status: Former Current packs/day: 0.00 Types: Cigarettes Quit date: 1967 Years since quittin.2 Smokeless tobacco: Current Tobacco comments: PATIENT VERBALIZED "WELL NOW THAT I AM IN THE HOSPITAL, I CAN'T REALLY SMOKE Substance Use Topics Alcohol use: Yes Alcohol/week: 6.0 standard drinks of alcohol Types: 6 Cans of beer per week Comment: [place] EVERYOTHER WEEKEND Drug use: Never Home Meds: @PTAMEDSLIST@ All:No Known Allergies Review of Systems See HPI Physical Exam Vitals: 08/13/24 1300 08/13/24 1350 08/13/24 1400 08/13/24 1500 BP: BP Location: Patient Position: Pulse: 65 62 62 63 Resp: (!) 34 (!) 24 (!) 29 (!) 33 Temp: 37.1 ?C (98.8 ?F) 37.2 ?C (99 ?F) 37.2 ?C (99 ?F) 37.1 ?C (98.8 ?F) TempSrc: SpO2: 99% 99% 98% 98% Weight: Height: Physical Exam General: A&O x 4, well-appearing, in no acute distress. HEENT: no icterus Pulmonary: Normal respiratory effort Abdomen: Soft, non tender, non distended, no ascites Neurologic: No gross focal deficits, no asterixis Skin: normal appearance for race Extremities: no peripheral edema Laboratory data Lab Results Component Value Date WBC 11.64 (H) 08/13/2024 POC V Hgb Tot 7.6 (L) 08/13/2024 Hgb 8.3 (L) 08/13/2024 POC A Hct (calc) 30.0 (L) 08/11/2024 POC V Hct (calc) 23.0 (L) 08/13/2024 Hct 25.8 (L) 08/13/2024 MCV 92.8 08/13/2024 POC V Na 136 08/13/2024 Sodium Lvl 137 08/13/2024 POC V K 3.6 08/13/2024 Potassium Lvl 3.3 (L) 08/13/2024 POC V Cl 109 08/13/2024 Chloride Lvl 103 08/13/2024 CO2 Lvl 23.1 08/13/2024 BUN 11 08/13/2024 Calcium Lvl 8.1 (L) 08/13/2024 Magnesium 1.86 08/13/2024 Phosphorus Lvl 3.4 08/13/2024 Prothrombin Time (PT) 14.2 08/13/2024 INR 1.08 08/13/2024 PTT 38.7 (H) 08/13/2024 Lab Results Component Value Date AST 65 (H) 08/13/2024 ALT 60 (H) 08/13/2024 Imaging / endoscopy / colonoscopy Reviewed Problem List: Patient Active Problem List Diagnosis New onset of congestive heart failure (CMS/HCC) (HCC) Cellulitis Atrial fibrillation with RVR (CMS/HCC) (HCC) Prediabetes Elevated troponin Hypertension Tobacco use Coronary artery disease Hyponatremia Hyperglycemia Pulmonary edema cardiac cause (CMS/HCC) (HCC) Triple vessel coronary artery disease Acute non-ST elevation myocardial infarction (NSTEMI) (CMS/HCC) (HCC) Tachy-sen syndrome (CMS/HCC) (HCC) Tobacco use disorder Peripheral vascular disease (HCC) Normocytic anemia Diabetes mellitus (HCC) Compression fracture of T10 vertebra (HCC) Cardiac arrest (HCC) Shock (CMS/HCC) (HCC) Nonrheumatic mitral valve regurgitation Melena AVM (arteriovenous malformation) Assessment/plan: Ms. Hampton is a 69 year old woman with multivessel CAD c/b PEA arrest requiring ECOM and CPR , s/p PCII x4 with subsequent impella placmement, found to have moderate MR now s/p reny clip placement and MARQUES yesterday who developed melena this post EGD on 08/12 found to have duodenum AVMs status post epi and clips (no APC used). Duodenal AVMs GI bleed - Status post EGD on 08/12 - Patient on DAPT for PCI's, heparin only for Impella pending removal soon Recommendations: - Patient may still have some dark bowel movements from old blood, low concern for ongoing bleeding at this time. - Continue octreotide and would recommend initiation of SUSIE/ARB as tolerated to help with AVM bleeding - GI will sign off, please contact GI fellow if there is any concern for brisk GI bleed Discussed with Dr. Rojas Marshall MD [facility] Internal Medicine PGY-3 Cosigned by Rei Xie MD at 08/13/2024 6:42 PM CDT Associated attestation - Rei Xie MD - 08/13/2024 6:42 PM CDT I reviewed the resident's note and agree with the documented findings and plan of care. Rei Xie MD Internal Medicine [facility] 2024-08-11 11:00:45 GASTROENTEROLOGY INPATIENT CONSULT SERVICE CONSULT NOTE Consult requested by John Bruno MD Patient Name: Nichelle Hampton Primary Care Physician: PCP Date of admission: 07/31/2024 Date of Service: 08/11/2024 Reason for Consultation: Melena HPI Ms. Hampton is a 69 year old woman with multivessel CAD c/b PEA arrest requiring ECOM and CPR , s/p PCII x4 with subsequent impella placmement, found to have moderate MR now s/p reny clip placement and MARQUES yesterday who developed melena this AM around 9:30. Stool was noted to be dark and tarry. The patient is on heparin gtt for impella as well as DAPT for her CAD. She has never had such symptoms before, denies prior endoscopy or colonoscopy. She denies abdominal pain, NV dizziness. Pts BP was noted to be dropping and prbc transfusion was initiated she has been responsive. She had one further melenic bowel movement around 11am. Hemoglobin dropped from 8-> 7.1. GI team engaged for evaluation of upper GI bleeding. Pertinent History Past Medical History: Past Medical History: Diagnosis Date Diabetes mellitus (HCC) PATIENT CLAIMED THAT SHE HAS DIABETES Past Surgical History: History reviewed. No pertinent surgical history. FamHx: Family History: Problem Relation Name Age of Onset Diabetes Mother No Known Problems Father SocHx: Social History Tobacco Use Smoking status: Former Current packs/day: 0.00 Types: Cigarettes Quit date: 1967 Years since quittin.2 Smokeless tobacco: Current Tobacco comments: PATIENT VERBALIZED "WELL NOW THAT I AM IN THE HOSPITAL, I CAN'T REALLY SMOKE Substance Use Topics Alcohol use: Yes Alcohol/week: 6.0 standard drinks of alcohol Types: 6 Cans of beer per week Comment: [place] EVERYOTHER WEEKEND Drug use: Never Home Meds: @PTAMEDSLIST@ All:No Known Allergies Review of Systems See HPI Physical Exam Vitals: 08/11/24 1000 08/11/24 1030 08/11/24 1046 08/11/24 1048 BP: (!) 119/54 (!) 123/55 Pulse: (!) 105 67 66 66 Resp: (!) 30 (!) 28 (!) 26 (!) 23 Temp: 37.1 ?C (98.8 ?F) 37.2 ?C (99 ?F) 37.2 ?C (98.9 ?F) 37.2 ?C (98.9 ?F) TempSrc: SpO2: 95% 93% Weight: Height: Physical Exam General: A&O x 4, well-appearing, in no acute distress. HEENT: no icterus Pulmonary: Normal respiratory effort Abdomen: Soft, non tender, non distended, no ascites Neurologic: No gross focal deficits, no asterixis Skin: normal appearance for race Extremities: no peripheral edema Laboratory data Lab Results Component Value Date WBC 9.69 08/11/2024 POC V Hgb Tot 10.2 (L) 08/11/2024 Hgb 7.1 (L) 08/11/2024 POC A Hct (calc) 26.0 (L) 08/10/2024 POC V Hct (calc) 31.0 (L) 08/11/2024 Hct 21.7 (L) 08/11/2024 MCV 93.1 08/11/2024 POC V Na 135 08/11/2024 Sodium Lvl 143 08/11/2024 POC V K 3.7 08/11/2024 Potassium Lvl 3.9 08/11/2024 POC V Cl 109 08/11/2024 Chloride Lvl 112 (H) 08/11/2024 CO2 Lvl 22.7 08/11/2024 BUN 21 08/11/2024 Calcium Lvl 7.4 (L) 08/11/2024 Magnesium 2.39 08/11/2024 Phosphorus Lvl 2.4 08/11/2024 Prothrombin Time (PT) 14.6 08/11/2024 INR 1.12 08/11/2024 PTT 71.1 (H) 08/11/2024 Lab Results Component Value Date AST 84 (H) 08/11/2024 ALT 53 (H) 08/11/2024 Imaging / endoscopy / colonoscopy Reviewed Problem List: Patient Active Problem List Diagnosis New onset of congestive heart failure (CMS/HCC) (HCC) Cellulitis Atrial fibrillation with RVR (CMS/HCC) (HCC) Prediabetes Elevated troponin Hypertension Tobacco use Coronary artery disease Hyponatremia Hyperglycemia Pulmonary edema cardiac cause (CMS/HCC) (HCC) Triple vessel coronary artery disease Acute non-ST elevation myocardial infarction (NSTEMI) (CMS/HCC) (HCC) Tachy-sen syndrome (CMS/HCC) (HCC) Tobacco use disorder Peripheral vascular disease (HCC) Normocytic anemia Diabetes mellitus (HCC) Compression fracture of T10 vertebra (HCC) Cardiac arrest (HCC) Shock (CMS/HCC) (HCC) Nonrheumatic mitral valve regurgitation Melena Assessment/plan: Ms. Hampton is a 69 year old woman with multivessel CAD c/b PEA arrest requiring ECOM and CPR , s/p PCII x4 with subsequent impella placmement, found to have moderate MR now s/p reny clip placement and MARQUES yesterday who developed melena this AM Gi team engaged for evaluation of upper GI bleeding. - please ensure 2 large bore IV - agree with transfusion for HH>7 - please load patient with IV PPI 80mg bolus followed by 40mg IV BID - patient will likely require inpatient EGD, tentatively planned for 08/13, if patient develops further hemodynamically significant bleeding can plan for more emergent endoscopy - please keep NPO D/w Dr. Karyn Clay MD GI Fellow PGY5 08/11/2024 11:02 AM Cosigned by Hasmukh Boss MD at 08/11/2024 3:48 PM CDT Associated attestation - Hasmukh Boss MD - 08/11/2024 3:48 PM CDT I saw and evaluated the patient. I agree with the assessment and plan as documented by the fellow . Pertinent relevant clinical data, imaging, labs were reviewed by myself. Will tentatively plan for EGD tomorrow to evaluate for upper GI bleeding source, sooner if any signs of further bleeding or hemodynamic instability ensues. Continue with PPI. Continue to monitor for any ongoing signs of bleeding and transfuse accordingly Hasmukh Boss MD [employer], [facility] [place] Gastroenterology and Hepatology [facility] 2024-08-10 11:17:00 Images from the original note were not included. [facility] FOR ADVANCED HEART FAILURE HF Surgery Consult Note Patient Name: Nichelle Hampton Date of : 1955 Referring Physician: Date of Service: 08/10/24 Chief Complain. Chest Pain, SOB HISTORY OF PRESENT ILLNESS. Nichelle Hampton is a 69 year-old female with past medical history remarkable for HTN, DM, CAD and tobacco abuse who was transferred to [facility] for revascularization after LHC at [facility] revealed multivessel disease with severe L main disease. Other relevant events at OSH included cellulitis 2/2 to spider bite and hypoxic respiratory failure requiring bipap, afib RVR and possible new diagnosis of CHF (EF 45-50%). She underwent high risk PCI/DESx4 of the LM and LAD on 08/06. Periprocedural PEA due to in-stent thrombosis. She was emergently cannulated and placed on VA-ECMO, and fully revascularized. Good MEAGAN flows afterwards. Postinterventional, she was taken to the OR for VA-ECMO weaning and Impella 5.5 placement axillary R. Impella weaning attempt 08/09 failed, with increasing pulmonary congestion and elevated PAP. In TTE yesterday we noticed a new severe MR, secondary. In Today's MARQUES we notice severe MARQUES, with prolaps P2, with two resulting jets in A2P2 and A3P3. 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 Discussed bedside with Dr. Agrawal and Dr. Lee. Decision to proceed with interventional YAQUELIN with MitraClip today. PAST MEDICAL HISTORY. Active Ambulatory Problems Diagnosis Date Noted New onset of congestive heart failure (CMS/HCC) (HCC) 07/28/2024 Cellulitis 07/28/2024 Atrial fibrillation with RVR (CMS/HCC) (HCC) 07/28/2024 Prediabetes 07/28/2024 Elevated troponin 07/28/2024 Hypertension 07/28/2024 Tobacco use 07/28/2024 Coronary artery disease 07/28/2024 Hyponatremia 07/28/2024 Hyperglycemia 07/28/2024 Pulmonary edema cardiac cause (CMS/HCC) ([facility]) 07/28/2024 Resolved Ambulatory Problems Diagnosis Date Noted Acute hypoxic respiratory failure ([facility]) 07/28/2024 Past Medical History: Diagnosis Date Diabetes mellitus ([facility]) FAMILY HISTORY: family history includes Diabetes in her mother; No Known Problems in her father. SOCIAL HISTORY: reports that she quit smoking about 58 years ago. Her smoking use included cigarettes. She uses smokeless tobacco. She reports current alcohol use of about 6.0 standard drinks of alcohol per week. She reports that she does not use drugs. CURRENT MEDICATIONS: Current Outpatient Medications Medication Instructions Repatha SureClick 140 mg, Subcutaneous, Every 14 days Physical Exam: Vitals: 08/10/24 0600 08/10/24 0700 08/10/24 0834 08/10/24 0900 BP: Pulse: 67 65 68 67 Resp: (!) 25 (!) 23 20 22 Temp: 37.2 ?C (99 ?F) 37.2 ?C (99 ?F) 37 ?C (98.6 ?F) 37.1 ?C (98.8 ?F) SpO2: 96% 97% Physical Exam: Constitutional: Appearance: Normal appearance. She is normal weight. HENT: Head: Atraumatic. Nose: Nose normal. Mouth/Throat: Mouth: Mucous membranes are moist. Pharynx: Oropharynx is clear. Eyes: Extraocular Movements: Extraocular movements intact. Conjunctiva/sclera: Conjunctivae normal. Pupils: Pupils are equal, round, and reactive to light. Cardiovascular: Rate and Rhythm: Normal rate and regular rhythm. Pulses: Normal pulses. Heart sounds: Murmur heard. Pulmonary: Breath sounds: Normal breath sounds. Abdominal: General: Bowel sounds are normal. Palpations: Abdomen is soft. Musculoskeletal: General: Normal range of motion. Cervical back: Normal range of motion. Skin: General: Skin is dry. Capillary Refill: Capillary refill takes less than 2 seconds. Neurological: General: No focal deficit present. Mental Status: She is alert and oriented to person, place, and time. Image/Lab Review Recent Results (from the past 24 hours) MRSA by PCR Collection Time: 08/09/24 11:21 AM Result Value Ref Range MRSA by PCR Negative Negative POC Arterial Blood Gas and Comprehensive Panel Collection Time: 08/09/24 12:34 PM Result Value Ref Range POC A Temp 37.0 DegC POC A Source ART POC A pH 7.41 7.35 - 7.45 POC A PCO2 31 (L) 35 - 45 mmHg POC A PO2 107 80 - 100 mmHg POC A HCO3 20 (L) 22 - 26 mMol/L POC A BE -4 (L) -2 - 2 mMol/L POC A O2 Sat (calc) 98.2 95 - 100 % POC A O2 Sat (leidy) 99.6 95 - 100 % POC A Oxyhgb 96.3 95 - 100 % POC A Carboxy 1.9 Non-Smoker: 0.0-2.0 Smoker: 0.0-9.0 % POC A Methgb 1.4 0.0 - 1.4 % POC A Hgb Tot 9.9 (L) 11.2 - 15.7 g/dL POC A Hct (calc) 30.0 (L) 34.1 - 44.9 % POC A Na 130 (L) 135 - 145 mEq/L POC A K 4.1 3.5 - 5.1 mEq/L POC Chloride 106 95 - 109 mEq/L POC A Glu 189 (H) 70 - 99 mg/dL POC A LA 0.9 0.5 - 2.2 mMol/L POC A Ca Ion 1.16 1.05 - 1.25 mMol/L POC A Ca Ion (7.4) 1.16 1.05 - 1.25 mmol/L POC Performing Location BG CLIN Iron + transferrin + TIBC Collection Time: 08/09/24 1:45 PM Result Value Ref Range Ferritin Lvl 481 (H) 16 - 288 ng/mL Iron 19 (L) 45 - 160 mcg/dL TIBC 159 (L) 250 - 450 mcg/dL (calc) % Iron Saturation 12 (L) 16 - 45 % (calc) Folate Level Collection Time: 08/09/24 1:45 PM Result Value Ref Range Folate Lvl 5.5 ng/mL Vitamin B12 Level Collection Time: 08/09/24 1:45 PM Result Value Ref Range Vitamin B12 Level 478 200 - 1100 pg/mL DIC Screen Collection Time: 08/09/24 1:45 PM Result Value Ref Range Prothrombin Time (PT) 13.7 12 - 14.7 Seconds INR 1.03 0.85 - 1.17 PTT 49.5 (H) 22.9 - 35.8 Seconds Thrombin Time 24.3 (H) 15 - 21.2 Seconds Fibrinogen Lvl 512 (H) 230 - 510 mg/dL D-Dimer 2.42 ug/mL FEU POC Arterial Blood Gas and Comprehensive Panel Collection Time: 08/09/24 5:19 PM Result Value Ref Range POC A Temp 37.0 DegC POC A Source ART POC A pH 7.43 7.35 - 7.45 POC A PCO2 31 (L) 35 - 45 mmHg POC A PO2 76 (L) 80 - 100 mmHg POC A HCO3 21 (L) 22 - 26 mMol/L POC A BE -3 (L) -2 - 2 mMol/L POC A O2 Sat (calc) 95.5 95 - 100 % POC A O2 Sat (leidy) 97.5 95 - 100 % POC A Oxyhgb 94.7 (L) 95 - 100 % POC A Carboxy 1.6 Non-Smoker: 0.0-2.0 Smoker: 0.0-9.0 % POC A Methgb 1.3 0.0 - 1.4 % POC A Hgb Tot 9.7 (L) 11.2 - 15.7 g/dL POC A Hct (calc) 29.0 (L) 34.1 - 44.9 % POC A Na 130 (L) 135 - 145 mEq/L POC A K 4.3 3.5 - 5.1 mEq/L POC Chloride 105 95 - 109 mEq/L POC A Glu 178 (H) 70 - 99 mg/dL POC A LA 0.9 0.5 - 2.2 mMol/L POC A Ca Ion 1.14 1.05 - 1.25 mMol/L POC A Ca Ion (7.4) 1.15 1.05 - 1.25 mmol/L POC Performing Location [facility] BG CLIN PTT Collection Time: 08/09/24 7:27 PM Result Value Ref Range PTT 59.1 (H) 22.9 - 35.8 Seconds POC Glucose Collection Time: 08/09/24 9:16 PM Result Value Ref Range POC Glu 146 (H) 70 - 99 mg/dL POC Performing Location [facility] HEART Magnesium Level Collection Time: 08/10/24 3:05 AM Result Value Ref Range Magnesium 2.20 1.6 - 2.60 mg/dL Phosphorus Level Collection Time: 08/10/24 3:05 AM Result Value Ref Range Phosphorus Lvl 2.1 (L) 2.4 - 5.1 mg/dL Comprehensive metabolic panel Collection Time: 08/10/24 3:05 AM Result Value Ref Range Sodium Lvl 142 136 - 145 mEq/L Potassium Lvl 4.1 3.4 - 4.5 mEq/L Chloride Lvl 110 (H) 98 - 107 mEq/L CO2 Lvl 23.5 20.0 - 31.0 mEq/L Anion Gap 12.6 10.0 - 20.0 mEq/L Glucose Lvl 143 (H) 70 - 99 mg/dL Creatinine Lvl 0.50 (L) 0.55 - 1.02 mg/dL BUN 20 9 - 23 mg/dL B/C Ratio 40 (H) 6 - 25 Protein 5.0 (L) 5.7 - 8.2 g/dL Albumin Lvl 2.5 (L) 3.4 - 5.0 g/dL Globulin, Calc 2.5 2.0 - 4.0 g/dL Albumin/Globulin Ratio 1.00 0.7 - 1.6 Calcium Lvl 7.7 (L) 8.3 - 10.6 mg/dL ALT 37 7 - 40 U/L AST 30 12 - 40 U/L Alkaline Phosphatase 107 46 - 116 U/L Bilirubin Total 0.65 0.20 - 1.10 mg/dL eGFR 100 >60 mL/min/1.73m2 DIC Screen Collection Time: 08/10/24 3:05 AM Result Value Ref Range Prothrombin Time (PT) 14.1 12 - 14.7 Seconds INR 1.07 0.85 - 1.17 PTT 64.8 (H) 22.9 - 35.8 Seconds Thrombin Time 37.3 (H) 15 - 21.2 Seconds Fibrinogen Lvl 499 230 - 510 mg/dL D-Dimer 2.32 ug/mL FEU Lactate Dehydrogenase Collection Time: 08/10/24 3:05 AM Result Value Ref Range LDH Tot 436 (H) 120 - 246 U/L Plasma Hemoglobin Collection Time: 08/10/24 3:05 AM Result Value Ref Range Hgb, Plasma 20 mg/dL Complete Blood Count Collection Time: 08/10/24 3:05 AM Result Value Ref Range WBC 14.17 (H) 4.15 - 10.55 10*3/uL RBC 2.84 (L) 3.74 - 5.22 10*6/uL NRBC % 0.0 0 /100 WBC Hgb 8.7 (L) 10.8 - 14.8 g/dL Hct 26.0 (L) 33.9 - 45.4 % MCV 91.5 77.8 - 97.5 fL MCH 30.6 24.9 - 32.6 pg MCHC 33.5 30.1 - 35.0 g/dL RDW - SD 57.1 (H) 37.6 - 49.1 fL Plt Count 142 (L) 191 - 422 10*3/uL MPV 11.5 9.0 - 12.6 fL Automated Differential Collection Time: 08/10/24 3:05 AM Result Value Ref Range Segs % 72.6 (H) 40.9 - 70.4 % Lymphs % 15.5 15.3 - 46.4 % Monos % 8.7 3.9 - 10.9 % Eos % 1.5 0.3 - 4.1 % Basos % 0.5 0.2 - 1.3 % Immature Grans % 1.2 (H) 0.1 - 1 % Segs # 10.30 (H) 2.03 - 7.09 10*3/uL Lymphs # 2.19 1.09 - 3.65 10*3/uL Monos # 1.23 (H) 0.27 - 0.78 10*3/uL Eos # 0.21 0.02 - 0.33 10*3/uL Basos # 0.07 0.01 - 0.09 10*3/uL Imm Grans # 0.17 (H) 0.01 - 0.07 10*3/uL POC Venous Blood Gas and Comprehensive Panel Collection Time: 08/10/24 3:23 AM Result Value Ref Range POC V Temp 37.0 DegC POC V Source OLIVA POC V PO2 48 20 - 49 mmHg POC V pH 7.43 (H) 7.28 - 7.42 POC V PCO2 36 (L) 38 - 52 mmHg POC V Oxyhgb 79.9 (L) 95 - 100 % POC V O2 Sat (leidy) 82.3 (H) 40 - 70 % POC V O2 Sat (calc) 85 (H) 40 - 70 % POC V HCO3 24 22 - 26 mmol/L POC V Carboxy 2.1 (H) Non-Smoker: 0.0-2.0 Smoker: 0.0-9.0 % POC V BE 0 -2 - 2 mmol/L POC V Methgb 0.7 0.0 - 1.4 % POC V Hgb Tot 9.2 (L) 11.2 - 15.7 g/dL POC V Hct (calc) 28.0 (L) 34.1 - 44.9 % POC V Na 135 135 - 145 mEq/L POC V K 4.0 3.5 - 5.1 mEq/L POC V Cl 111 (H) 95 - 109 mEq/L POC V Glu 142 (H) 70 - 99 mg/dL POC V LA 0.5 0.5 - 2.2 mMol/L POC V Ca Ion 1.19 1.05 - 1.25 mMol/L POC V Ca Ion (7.4) 1.20 1.05 - 1.25 mMol/L POC Performing Location [facility] BG CLI CT CHEST WO IV CONTRAST 07/31/2024 Narrative EXAM: CT CHEST WITHOUT CONTRAST DATE: 07/31/2024 9:50 INDICATION: Preoperative evaluation ADDITIONAL INFORMATION: 69-year-old Woman with History of and A-fib. COMPARISON: No prior CT chest is available for comparison at the time of dictation. TECHNIQUE: Volumetric CT of the chest is acquired without contrast. Axial, coronal and sagittal images are provided. MIP series is provided. FINDINGS: Counseling Services Director: Noncontributory. Lines, tubes and hardware: None. Lower neck: The visible portions or the lower neck and thyroid are unremarkable. Axilla: There are no enlarged axillary lymph nodes. Airways, lungs and pleura: The central airways are patent. Small right posterolateral diverticulum in the upper trachea. Small bilateral pleural effusions, greater on the left. Dependent consolidative opacities with air bronchograms and surrounding groundglass in the bilateral lower lobes. Mild diffuse groundglass is associated with interlobular septal thickening. Scattered bilateral subsegmental atelectasis in both lungs. No pneumothorax. Few calcified granulomas in both lungs. Minimal upper lobe predominant centrilobular emphysema. Mediastinum, jagjit and intrathoracic lymph nodes: Multiple calcified intrathoracic lymph nodes are most consistent with sequela of prior renal metastases. Borderline size mediastinal lymph nodes measuring up to 1 cm most likely reactive. Evaluation of hilar spaces suboptimal due to lack of intravenous contrast. Heart, pericardium and great vessels: Cardiomegaly. Trace physiologic pericardial effusion. Evidence of anemia. The thoracic aorta and pulmonary trunk have normal caliber. Scattered calcifications at the thoracic aorta. Diffuse three-vessel coronary artery calcifications. Upper abdomen: Scattered calcifications at abdominal aorta and branches. Status post cholecystectomy. Calcified granulomas in the spleen. Bones: Bones are severely demineralized with degenerative changes. Acute appearing transverse fracture of anterior aspect of T10 vertebral body is suboptimal evaluated (best seen on images 121-128 of series 7). Soft tissues: Normal. Impression 1. Acute appearing transverse fracture of anterior aspect of T10 vertebral body is suboptimal evaluated. Recommend further evaluation with dedicated MRI spine. 2. Imaging findings suggestive of pulmonary edema associated with volume overload. Dependent atelectasis in the bilateral lungs with possible superimposed aspiration/pneumonia. 3. Small bilateral pleural effusions, greater on the left. 4. Cardiomegaly. Diffuse three-vessel coronary artery calcifications. 5. Evidence of prior granulomatous disease. 6. Additional imaging findings as described. Critical findings of impression #1 were communicated to and acknowledged by Dr. Brandin Marks Via telephone at 07/31/2024 10:30 by Leda Hurley MD, . Report finalized by: Leda Hurley MD, MD 07/31/2024 10:30 US carotid artery doppler bilateral 07/31/2024 Narrative EXAM: US EXTRACRANIAL ARTERIAL DOPPLER DATE: 07/31/2024 10:10 INDICATION: Preoperative evaluation ADDITIONAL INFORMATION: None. COMPARISON: None. TECHNIQUE: Multiplanar grayscale, color Doppler, and spectral Doppler ultrasound of the carotid and vertebral arteries. FINDINGS: RIGHT CAROTID SYSTEM: Right Common Carotid Artery (RCCA): Antegrade waveforms. No significant plaque. Patent artery. * Proximal RCCA: PSV 98 cm/s * Middle RCCA: PSV 75 cm/s * Distal RCCA: PSV 70 cm/s Right Carotid Bulb: PSV 66 cm/s mild plaque Right Internal Carotid Artery (SHAN): Antegrade waveforms. No significant plaque. Patent artery. * Proximal SHAN: PSV 95 cm/s * Middle SHAN: PSV 83 cm/s * Distal SHAN: PSV 87 cm/s Right External Carotid Artery (RECA): Antegrade waveforms. No significant plaque. Patent artery. * PSV 141 cm/s SHAN:RCCA: 1.4 Right Vertebral Artery (RVA): Antegrade waveforms. LEFT CAROTID SYSTEM: Left Common Carotid Artery (LCCA): Antegrade waveforms. Mild plaque distally Plaque is soft/echolucent. * Proximal LCCA: PSV 93 cm/s * Middle LCCA: 94 cm/s * Distal LCCA: PSV 91 cm/s Left Carotid Bulb: PSV 88 cm/s Left Internal Carotid Artery (LICA): Antegrade waveforms. Mild plaque. Plaque is predominantly soft/echolucent. * Proximal LICA: PSV 94 cm/s * Middle LICA: 94 cm/s * Distal LICA: PSV 81 cm/s Left External Carotid Artery (LECA): Antegrade waveforms. No significant plaque. Patent artery. * PSV 130 cm/s LICA:LCCA:1.0 Left Vertebral Artery (LVA): Antegrade waveforms. Other: None. Impression 1. Right internal carotid artery: No stenosis. 2. Left internal carotid artery: <50% stenosis. 3. Vertebral arteries: Normal antegrade waveforms. NOTE: Stenosis according to the 2020 SRU Consensus: * <50%: PSV <180cm/s, EDV <40cm/s, ICA:CCA <2 * 50-69%: PSV 180-230cm/s, EDV 40-100cm/s, ICA:CCA 2-4 * >70%: PSV >230cm/s, EDV >100cm/s, ICA:CCA >4 REFERENCE: [facility] Acc[facility] Vascular Testing Communication. Updated Recommendations for Carotid Stenosis Interpretation Criteria. February 2021. [email or web address]-c [email or web address] [email or web address]-Recommendations -gom-Aajtojy-Gnzoqsxx-Interpre tation-[email or web address] This report was dictated by a Dairy Husbandry Worker/Fellow/TIANNA: Vira Moncada RES 07/31/2024 10:42 This report was dictated by a Dairy Husbandry Worker/Fellow/Physician Fish Hatchery Laborer. I have personally reviewed the images as well as the interpretation and agree with the findings. Report finalized by: Rock Driver MD 07/31/2024 11:41 US lower extremity vein map bilateral 08/01/2024 Narrative EXAM: US LEFT LOWER EXTREMITY VENOUS DOPPLER DATE: 08/01/2024 9:40 INDICATION: Triple vessel coronary artery disease ADDITIONAL INFORMATION: The patient is a 69-year-old woman with severe 80% left main disease and severe multivessel disease, mild global hypokinesis and reduced ejection fraction pending evaluation for CABG. COMPARISON: None. TECHNIQUE: Multiplanar grayscale, color Doppler, and spectral Doppler ultrasound of the left lower extremity veins. FINDINGS: Right Thigh Veins: Common Femoral: Patent without thrombus. Femoral: Patent without thrombus. Popliteal: Patent without thrombus. Great Saphenous: Patent without thrombus. Upper Deep Femoral Vein: Patent without thrombus. Right Calf Veins: Peroneal: Patent without thrombus. Posterior Tibial: Patent without thrombus. Small saphenous: Patent without thrombus. Right Measurements: GSV prox thigh: 2.4 mm GSV mid thigh: 2.0 mm GSV distal thigh: 2.1 mm GSV prox calf: 1.5 mm GSV mid calf: Noncompressible secondary to superficial thrombus GSV distal calf: Not visualized likely secondary to superficial thrombus. SSV prox calf: 1.8 mm SSV mid calf: 1.3 mm SSV distal calf: 1.1 mm Left Thigh Veins: Common Femoral: Patent without thrombus. Femoral: Patent without thrombus. Popliteal: Patent without thrombus. Great Saphenous: Patent without thrombus. Upper Deep Femoral Vein: Patent without thrombus. Left Calf Veins: Peroneal: Patent without thrombus. Posterior Tibial: Patent without thrombus. Small saphenous: Patent without thrombus. Left Measurements: The left great saphenous vein has a thickened wall throughout the proximal to distal segments at the thigh GSV prox thigh: 0.8 mm GSV mid thigh: 0.8 mm GSV distal thigh: 0.6 mm GSV proximal to distal calf: Not visualized possibly secondary to thrombosed vessel. SSV prox calf: 1.0 mm SSV mid calf: Noncompressible secondary to thrombus. SSV distal calf: Not visualized likely secondary to thrombus Other: Right popliteal anechoic fluid collection in keeping with a Cox's cyst measures 1.3 x 3.7 x 1.1 cm Impression No deep venous thrombosis (DVT) in the femoropopliteal veins. 1. No DVT in the visible portions of the calf veins. 2. Great and small saphenous veins measurements as above. 3. The right great saphenous vein of the mid and distal calf are noncompressible/not visualized secondary to thrombus. 4. The left great saphenous vein of the thigh has a thickened wall. 5. The left great saphenous vein at the calf is not visualized and possibly thrombosed. 6. The left superficial saphenous mid to distal calf is thrombosed/not visualized. 7. Right popliteal fluid collection in keeping with a Cox's cyst This report was dictated by a Dairy Husbandry Worker/Fellow/TIANNA: Torey Leo RES, MD 08/01/2024 11:50 This report was dictated by a Dairy Husbandry Worker/Fellow/Physician Fish Hatchery Laborer. I have personally reviewed the images as well as the interpretation and agree with the findings. Report finalized by: Trent Nolasco MD 08/01/2024 11:58 No results found for this or any previous visit from the past 365 days. XR chest 1 view 08/10/2024 Narrative EXAM: XR CHEST 1 VIEW DATE: 08/10/2024 5:49 Age: 69 years y/o Female INDICATION: impella COMPARISON: Prior X-ray from yesterday. TECHNIQUE: AP chest. Impression Lines/tubes: Feeding tube has been removed. Otherwise, life support devices and lines/tubes are unchanged. Heart and mediastinum: The cardiomediastinal silhouette is stable. Aortic vascular wall calcifications are noted. Lungs: There are diffuse bilateral reticular/interstitial opacities which may be secondary to pulmonary edema with or without superimposed infection. There is a bilateral retrocardiac opacities which may be due to layering pleural effusions and/or a basilar airspace opacities such as pneumonia or atelectasis. Pleura: Small bilateral pleural effusions are present. No pneumothorax is identified on this portable radiograph. Musculoskeletal: The regional skeleton is unchanged. Report finalized by: Rafal Yip MD 08/10/2024 9:04 Transthoracic echo (TTE) complete Result Date: 08/08/2024 Patient intubated with Impella 5.5 at P8 during exam. Left ventricle is normal in size with concentric hypertrophy. The left ventricular systolic function is globally reduced with an estimated ejection fraction of 35-40%, by biplane method of discs. Apical thrombus is not present verified by the use of Lumason contrast. Impella catheter is present and located 5.5 cm from the aortic valve. Right ventricle is normal in size and systolic function (tricuspid annular planar systolic excursion is 23 mm). There is a catheter in the right ventricle. Left atrium is moderately enlarged in size (left atrial volume index is 43 ml/m 2 ). Right atrium is normal in size. Aortic valve is trileaflet. Impella is traversing the aortic valve. No significant regurgitation. Mitral valve is normal in structure with mild central regurgitation. Tricuspid valve leaflets are normal. There is mild tricuspid regurgitation. Estimated right ventricular systolic pressure is 34 mmHg, assuming a right atrial pressure of 8 mmHg. Pulmonic valve appears normal in structure and function. Aortic root is normal in diameter. Patient is ventilated, cannot use IVC diameter to estimate right atrial pressure. Hepatic veins shows normal flow patterns. A trivial pericardial effusion is seen. There is a large left pleural effusion. Compared to prior echocardiogram dated 07/31/2024, left ventricular function is further reduced and there is an Impella catheter in the left ventricle. Transthoracic echo (TTE) complete Result Date: 07/31/2024 Left Ventricle: Left ventricle size is normal. Findings consistent with eccentric hypertrophy. Mild global hypokinesis present. Mildly reduced systolic function with an estimated EF of 45 - 50%. Grade I diastolic dysfunction of the left ventricle. Apical thrombus is not present verified by the use of contrast. Right Ventricle: Right ventricle size is normal. Normal systolic function in the right ventricle. TAPSE is 19 mm. Pericardium: No pericardial effusion present. Transesophageal echo (MARQUES) with possible cardioversion Result Date: 07/30/2024 Left Ventricle: Left ventricle size is normal. Mild global hypokinesis present. Reduced systolic function with an estimated EF of 45 - 50%. Right Ventricle: Right ventricle size is normal. Normal systolic function in the right ventricle. Left Atrium: Normal sized left atrial appendage. No thrombus in left atrium present. Transthoracic echo (TTE) complete Result Date: 07/28/2024 Patient is in atrial fibrillation with RVR at the time of this study. LV systolic function assessment is suboptimal. Left Ventricle: Left ventricle size is normal. Mild global hypokinesis present. Mildly reduced systolic function with an estimated EF of 45 - 50%. Right Ventricle: Right ventricle size is normal. Normal systolic function in the right ventricle. Left Atrium: Left atrium is moderately dilated. Mitral Valve: Moderate mitral regurgitation present. Tricuspid Valve: Mild to moderate tricuspid regurgitation present. Mild to moderate pulmonary hypertension present. RVSP is 46.00 mmHg. Pericardium: Trivial pericardial effusion present. Left pleural effusion present. STS for MVR: STS for MVr Pertinent/available images, labs, and/or procedure notes were reviewed. ASSESSMENT/PLAN: Patient seen and discussed with Dr. Sri Mejia for consideration of MitraClip. In MARQUES today we confirm the new severe MR, secondary, with prolaps P2, with two resulting jets in A2P2 and A3P3, with regurgitation jet into the pulmonary veins. 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 No Afib, LVEDD 44mm, LVEF 35%, on Impella P7. Patient otherwise frail with limited mobility, s/p T10 extension injury without posterior element involvement. C spine CT without injury. L spine CT shows L L1, L2 fx. Calculated STS score for open MVR/r is 13.4 % and 17.5 %, respectively. We agree that proceeding with interventional YAQUELIN is the best approach for this patient at this time. Pt has prohibitive risks for surgical approach. She is also frail and has Albumin of 2.5 only. Discussed bedside with Dr. Agrawal and Dr. Lee all risks and benefits of the procedure. Decision to proceed with interventional YAQUELIN with MitraClip today. Details including risks and benefits of percutaneous intervention?(MitraClip) vs?SMVR vs medical management discussed including IE, embolization, need for further procedures including clip removal, and surgical backup. Cosigned by Jacques Mejia MD at 08/19/2024 1:58 PM CDT Associated attestation - Jacques Mejia MD - 08/19/2024 1:58 PM CDT I have seen and examined the patient with Fellow on 08/10/24 I have reviewed all the clinical information, lab investigations and imaging data. I agree with the above examination findings, assessment, and plan. I was present and supervised. [facility] 2024-08-07 11:29:17 Images from the original note were not included. Hemotherapy Consultation Note Patient ID: Nichelle Hampton (69 y.o. female) Chief Complaint: No chief complaint on file. Admission Date: 07/31/2024 Referring Physician/Service: [facility] ICU Reason for Consult: New Impella HISTORY OF PRESENT ILLNESS: 69 yo female w/ PMH including HTN, DM, CAD and tobacco abuse who was transferred to [facility] for revascularization after LHC at [facility] revealed multivessel disease with severe L main disease. Other relevant events at OSH included cellulitis 2/2 to spider bite and hypoxic respiratory failure requiring bipap, afib RVR and possible new diagnosis of CHF (EF 45-50%). Went for PCI x4 on 08/06 c/b PEA arrest s/p ECMO s/p Impella 5.5 placement. PAST MEDICAL HISTORY: has a past medical history of Diabetes mellitus (HCC). PAST SURGICAL HISTORY: has no past surgical history on file. FAMILY HISTORY: family history includes Diabetes in her mother; No Known Problems in her father. SOCIAL HISTORY: reports that she quit smoking about 58 years ago. Her smoking use included cigarettes. She uses smokeless tobacco. She reports current alcohol use of about 6.0 standard drinks of alcohol per week. She reports that she does not use drugs. ALLERGIES: has no known allergies. HOME MEDICATIONS: Current Outpatient Medications Medication Instructions Repatha SureClick 140 mg, Subcutaneous, Every 14 days REVIEW OF SYSTEMS: Negative except per HPI PHYSICAL EXAM: BP (!) 78/46 | Pulse 80 | Temp 37.1 ?C (98.8 ?F) | Resp 16 | Ht 1.61 m (5' 3.39") | Wt 61.3 kg (135 lb 2.3 oz) | SpO2 100% | BMI 23.65 kg/m? Gen: Intubated, sedated Neuro: No focal deficits appreciated HEENT: PERRL; EOMI; No scleral icterus CV/Pulses: RRR; 2+ peripheral pulses Pulm: intubated, symmetric chest rise GI: Soft; NTND : Deferred MS: Tone intact Skin/Ext: No changes in lesions; 1+ pitting edema LABS: Lab Results Component Value Date Albumin Lvl 2.3 (L) 08/07/2024 Albumin Lvl 2.4 (L) 08/06/2024 Protein 5.2 (L) 08/07/2024 Protein 5.1 (L) 08/06/2024 ALT 149 (H) 08/07/2024 ALT 171 (H) 08/06/2024 AST 239 (H) 08/07/2024 AST 298 (H) 08/06/2024 Bilirubin Total 0.50 08/07/2024 Bilirubin Total 0.50 08/06/2024 WBC 22.21 (H) 08/07/2024 WBC 24.85 (H) 08/06/2024 POC V Hgb Tot 8.8 (L) 08/07/2024 Hgb 8.6 (L) 08/07/2024 Plt Count 444 (H) 08/07/2024 Plt Count 401 08/06/2024 INR 1.14 (H) 08/07/2024 INR 1.25 (H) 08/07/2024 PTT 31.8 08/07/2024 PTT 69.7 (H) 08/07/2024 LDH Tot 590 (H) 08/07/2024 Hgb, Plasma 10 08/07/2024 Results from last 7 days Lab Units 08/07/24 1225 08/07/24 0605 08/07/24 0011 08/06/24 2205 INR -- 1.14* 1.25* 1.20* PTT Seconds 30.4 31.8 69.7* 158.7* IMAGING: Images were reviewed. ASSESSMENT AND PLAN: 69 yo female w/ PMH including HTN, DM, CAD and tobacco abuse who was transferred to [facility] for revascularization after LHC at [facility] revealed multivessel disease with severe L main disease. Other relevant events at OSH included cellulitis 2/2 to spider bite and hypoxic respiratory failure requiring bipap, afib RVR and possible new diagnosis of CHF (EF 45-50%). Went for PCI x4 to [facility] c/b PEA arrest with 15 minutes of CPR and ECMO cannulation, finding of acute stent thrombosis s/p PTCA > with subsequent Impella 5.5 placement and decannulation of ECMO on 08/06/2024. Anemia/RBC: H/H Stable, required 1u pRBCs 08/04, 08/06 in OR Anemia cause(s): s/p impella - SAGE output acceptable Anemia studies: normocytic, will consider iron studies Anemia therapy: s/p RBC transfusion on 08/07 Blood Type: O Pos ; Antibody screen: negative; Antibody History: unknown Monitor, transfuse if Hb < 7/8 mmHg/dL. Platelet: Count: stable Consumption by devices: Imeplla 5.5 Antiplatelet medication: Asa 81, Brillinta 90 first dose 08/07 Monitor, transfuse when Platelet count < 20K or <50K if actively bleeding. Coagulation: PT/INR mildly elevated PTT appropriate, monitor as heparin started Fibrinogen acceptable, transfuse cryoprecipitate for fibrinogen <150 mg/dL Monitor. Anticoagulation for Impella 5.5: Device heparin started 08/06 Fixed dose heparin to start 08/07 at 200 units/hr Monitor for bleeding. Patient seen and discussed with Dr. Campbell. Please see attending attestation for final plan. Hemotherapy Attending Note: The patient was seen and evaluated by myself. Review the labs and imaging data. Agree with Dr Heaton 's assessment and plan which reflect my input. Impella 5.5. SAGE out put minimal. On Device Heparin. Start systemic Heparin 200 units/hr, gradually titrate up to PTT goal 60-80. Pt is on ASA and Brilinta. Krunal Heaton MD PGY-1, Department of Anesthesiology, Critical Care and Pain Medicine [employer] [facility] 2024-08-07 10:15:34 Associated Order(s): IP CONSULT TO NUTRITION SERVICES 08/10: Passed for diet with speech yesterday - regular/thin liquids. DHT removed yesterday evening. ONS initiated for nutrition support. NPO this morning for MARQUES and Mitraclip later today. Will continue to monitor intake. 08/09: Tube feeds initiated yesterday evening. Infusing at 50 ml/hr this morning, continuing to advance to goal rate of 65 ml/hr. Speech planning to perform FEES today. Pt reports normal appetite and PO intake prior to hospitalization. Recalls her UBW ~120s lbs. Noted moderate losses on NFPE today, could be age-related. Weaning impella. 08/08: Tube feeding consult placed. DHT placed yesterday (in stomach). Team okay with initiating tube feeds today. Also plan to consult speech to assess swallow. Start - Recommend Peptamen AF @ 65 ml/hr (provides 1716 kcal, 109g pro) NUTRITION ASSESSMENT - ADULT Unit: [facility] Reason for RD Encounter: SOC - New Vent Findings Nutrition Diagnosis: Nutrition Diagnosis: Inadequate oral intake related to recent surgery as evidenced by NPO status and intubation. * Interventions and Recommendation: When medically feasible - Recommend Peptamen AF @ 65 ml/hr (provides 1716 kcal, 109g pro) If able to extubate today, advance diet as medically feasible NUTRITION RISK: Moderate, in 5-7 days Next Date for Nutrition Services Follow Up: 08/14/24 Communication : ALEJO Rounded with multidisciplinary team Current Nutrition: Dietary Orders (From admission, onward) Start Ordered 08/06/24 1832 NPO Diet Diet effective now 08/06/24 1831 Orderered Tube Feeds and Supplements Medication Dose Route Frequency Provider Last Rate Last Admin None PO/EN/PN Intakes: No data found. Nutrition Visit Information: 08/07: S/p PCI, requiring VA-ECMO and impella. ECMO decannulated, remains intubated and on impella. Epi @ 3. NGT in place, no EN initiated. If no plans to extubate today, recommend starting EN for nutrition support. Per EMR documentation, pt was eating well prior to surgery. Anthropometrics: Height: 161 cm (5' 3.39") Height Method: Stated Weight: 135 lbs (08/07) Weight Method: Bed scale Body mass index is 23.65 kg/m?. [place] body weight: 53.3 kg (117 lb 7.7 oz) Adjusted ideal body weight: 56.5 kg (124 lb 8.7 oz) Wt Readings from Last 10 Encounters: 08/07/24 61.3 kg (135 lb 2.3 oz) 07/28/24 54 kg (119 lb 0.8 oz) 07/27/24 57.4 kg (126 lb 8.7 oz) Estimated Nutrition Needs: Calculated Energy Needs Using Equations Height: 1.61 m (5' 3.39") Weight Used for Equation Calculations: 61.2 kg (135 lb) Energy Equation Used: Rule of thumb (kcal/kg) Energy Lower Range: 25 (kcal/kg) Energy Upper Range: 30 (kcal/day) Energy Needs Lower Range: 1531 kcal/day (kcal/day) Energy Needs Upper Range: 1837 kcal/day Minute Ventilation (L/min): 9.4 L/min Temp: 37 ?C (98.6 ?F) Estimated Protein Needs (g/kg) Protein Lower Range: 1.5 (g/kg) Protein Upper Range: 2.0 (g/day) Protein Lower Range: 92 g/day (g/day) Protein Upper Range: 122 g/day Fluid Needs Fluid Needs Method: Or per MD Nutrition Physical Findings per network specialist: Orientation Level: Unable to assess O2 Delivery Method: Endotracheal tube Gastrointestinal (WDL): X Abdomen Inspection: Soft; Flat Abdominal Tenderness: Soft Bowel Sounds: All quadrants Bowel Sounds (All Quadrants): Absent Last BM Date: 08/02/24 LUE: Unable to assess RUE: Unable to assess LLE: Unable to assess RLE: Unable to assess Edema: Generalized LUE Edema: +2 LLE Edema: Dependent RLE Edema: Dependent Gastric Tube 08/06/24 Nasogastric Right nostril (Active) Wound 07/28/24 Other (Comments) Left;Posterior Hand (Active) Wound 08/03/24 Infiltration/Extravasation Anterior;Left;Upper Arm (Active) Wound 08/06/24 Surgical Right Subclavian (Active) Wound 08/06/24 Surgical Anterior;Proximal;Right Thigh (Active) Nutrition Focused Physical Exam - Muscles and Fat: Basic Information: Admitting diagnosis: Triple vessel coronary artery disease [I25.10] Clinical course: 69 yo female w/ PMH including HTN, DM, CAD and tobacco abuse who was transferred to [facility] for revascularization after LHC at [facility] revealed multivessel disease with severe L main disease. Other relevant events at OSH included cellulitis 2/2 to spider bite and hypoxic respiratory failure requiring bipap, afib RVR and possible new diagnosis of CHF (EF 45-50%). Medications: [Held by provider] amiodarone, 200 mg, Oral, BID artificial tears, 1 Application, Both Eyes, q6h DARYL aspirin EC, 81 mg, Oral, Daily And ticagrelor, 90 mg, Oral, q12h DARYL atorvastatin, 40 mg, Oral, Daily chlorhexidine, 15 mL, Mouth/Throat, 4x daily polyethylene glycol (PEG) 3350, 17 g, Oral, Daily potassium phosphate, 30 mmol, Intravenous, Once sennosides, 1 tablet, Oral, BID sodium bicarbonate, 50 mEq, Intravenous, Once amiodarone, 0.5 mg/min, Last Rate: 0.5 mg/min (08/07/24 0400) amiodarone in D5W 500 mL, , Last Rate: 1 mg/min (08/06/24 1824) EPINEPHrine, , Last Rate: 3 mcg/min (08/06/24 1909) EPINEPHrine, 3 mcg/min, Last Rate: 3 mcg/min (08/06/242199) fentaNYL, 50-200 mcg/hr, Last Rate: 50 mcg/hr (08/06/24 2320) heparin 12,500 Units in dextrose 5 % 500 mL infusion, , Last Rate: 11.4 mL/hr at 08/06/242199 [Held by provider] heparin, 0.1-40 Units/kg/hr, Last Rate: 20 Units/kg/hr (08/06/24 1300) insulin regular, 0-35 Units/hr, Last Rate: 1.62 Units/hr (08/07/24 0947) norepinephrine, , Last Rate: Stopped (08/06/24 1939) potassium chloride, , Last Rate: 20 mEq (08/06/24 1727) sodium chloride, , Last Rate: 500 mL (08/06/24 1605) PRN medications: amiodarone in D5W 500 mL, calcium gluconate, chlorhexidine, dextrose, dextrose, EPINEPHrine, glucagon, magnesium sulfate, norepinephrine, potassium & sodium phosphates OR potassium & sodium phosphates, potassium chloride OR potassium chloride OR potassium chloride OR Potassium chloride, potassium chloride, sodium chloride, sodium chloride, sodium chloride, sodium chloride, sodium phosphates 45 mmol in sodium chloride 0.9 % 100 mL IVPB Labs: Pertinent Labs : Lab Results Component Value Date POC V Na 135 08/07/2024 POC A Na 136 08/07/2024 Sodium Lvl 143 08/07/2024 POC V K 3.5 08/07/2024 POC A K 3.5 08/07/2024 Potassium Lvl 3.9 08/07/2024 POC V Cl 107 08/07/2024 POC Chloride 109 08/07/2024 Chloride Lvl 112 (H) 08/07/2024 CO2 Lvl 22.3 08/07/2024 BUN 17 08/07/2024 Creatinine Lvl 0.76 08/07/2024 POC V Glu 268 (H) 08/07/2024 POC A Glu 165 (H) 08/07/2024 Glucose Lvl 220 (H) 08/07/2024 POC Glu 73 08/07/2024 Lab Results Component Value Date Calcium Lvl 7.7 (L) 08/07/2024 Magnesium 2.31 08/07/2024 Phosphorus Lvl 1.7 (L) 08/07/2024 Lab Results Component Value Date AST 239 (H) 08/07/2024 ALT 149 (H) 08/07/2024 Alkaline Phosphatase 108 08/07/2024 Lab Results Component Value Date Hgb A1C 6.45 (H) 07/31/2024 Review / Management: I/O 24 HRS: Intake/Output Summary (Last 24 hours) at 08/07/2024 1015 Last data filed at 08/07/2024 0600 Gross per 24 hour Intake 1741.42 ml Output 1595 ml Net 146.42 ml Unmeasured Stool Occurrence: 0 Monitoring and Evaluation: MONITORING AND EVALUATION: Digestive/abdominal assessment, Nutrition Intake : EN intake and tolerance, and Labs: nutrition-related GOAL: Initiate nutrition: and >75% of estimated needs met: Registered Dietitian: Tiana Boucher MPH, RD, LD, CNSC Mon-Fri Spectra: [phone] Wknd/on-call pager: [phone] [facility] 2024-08-02 20:52:30 Images from the original note were not included. Reason For Consult Evaluation for CABG History Of Present Illness Patient is a 69-year-old female initially admitted to our hospital on July 28. Past medical history HTN, DM, CAD, noncompliance, tobacco use presenting as a transfer from OSH to ICU for acute hypoxic respiratory failure on BiPAP. Patient found to be in atrial fibrillation, CTA demonstrated pulmonary congestion, no PE. She had been on amiodarone however there was no significant improvement hence she was taken for angiogram. Angiogram done on 07/30 demonstrating severe multivessel heart disease with left main and proximal RCA disease. Cardiology spoke with transplant team at [facility], patient accepted for consideration of bypass surgery and was discharged there on no vasopressors on the evening of 07/30. Past Medical History She has a past medical history of Diabetes mellitus (HCC). Surgical History She has no past surgical history on file. Social History She reports that she quit smoking about 58 years ago. Her smoking use included cigarettes. She uses smokeless tobacco. She reports current alcohol use of about 6.0 standard drinks of alcohol per week. She reports that she does not use drugs. Allergies Patient has no known allergies. Medications Prescriptions Prior to Admission[1] Physical Exam BMI:21.5, looks frail Physical Exam Constitutional: No distress. Pulmonary/Chest: Breath sounds normal. She exhibits no tenderness. Neurological: She is alert and oriented to person, place, and time. Last Recorded Vitals Blood pressure (!) 114/59, pulse 78, temperature 37.3 ?C (99.1 ?F), resp. rate (!) 54, height 1.61 m (5' 3.39"), weight 55.9 kg (123 lb 3.8 oz), SpO2 93%. Relevant Results ECG 07/31 HR 66, sinus, no ST-T change Pertinent Labs : Lab Results Component Value Date WBC 13.81 (H) 08/02/2024 POC V Hgb Tot 9.1 (L) 08/02/2024 Hgb 8.6 (L) 08/02/2024 POC V Hct (calc) 27.0 (L) 08/02/2024 Hct 26.2 (L) 08/02/2024 Plt Count 406 08/02/2024 Lab Results Component Value Date POC V Na 130 (L) 08/02/2024 POC V K 3.7 08/02/2024 POC V Cl 101 08/02/2024 CO2 Lvl 27.9 08/02/2024 BUN 16 08/02/2024 Creatinine Lvl 0.75 08/02/2024 POC V Glu 179 (H) 08/02/2024 Lab Results Component Value Date AST 19 08/02/2024 ALT 12 08/02/2024 Alkaline Phosphatase 72 08/02/2024 Lab Results Component Value Date PTT 79.8 (H) 08/02/2024 Prothrombin Time (PT) 14.3 08/02/2024 INR 1.09 08/02/2024 HS Troponin I: 55 Chest X ray 3.11 Stable enlarged cardiomediastinal silhouette. Stable bilateral retrocardiac opacities and a small pleural effusions. Stable dependent predominant bilateral airspace opacities which could present edema or multifocal infection. No pneumothorax in this portable radiograph. Osseous structures are unchanged. TTE 3.11 LVIDd/Ds: 52/39, LVEF: 49% , mild MR, no AI, trace TR Left Ventricle: Left ventricle size is normal. Findings consistent with eccentric hypertrophy. Mild global hypokinesis present. Mildly reduced systolic function with an estimated EF of 45 - 50%. Grade I diastolic dysfunction of the left ventricle. Apical thrombus is not present verified by the use of contrast. Right Ventricle: Right ventricle size is normal. Normal systolic function in the right ventricle. TAPSE is 19 mm. Pericardium: No pericardial effusion present. CAG 3.10 LM: Large and long vessel bifurcates into left anterior descending artery and left circumflex arteries. Mid to distal left main has a severe about 80% lesion extending into the ostium of the LAD. LAD: Large vessel, gives off diagonal and septal cashier receptionist branches with long, mild to moderately calcified, tubular about 60 to 70% lesion in the proximal to mid segment. LCx: Medium size vessels which gives off a medium sized OM branch. Mid to distal OM branches severe and diffusely disease and is small in size. RCA: Large vessel, gives off right PDA and right PLB branches and has a severe about 70 to 80% long proximal to mid segment lesion which is mild to moderately calcified. Right dominant system RHC 3.10 RA: Mean 4 mmHg RV 35/0 with RVEDP 5 mmHg PA 36/12 with mean of 22 mmHg PCWP estimated 12-[address] 3.11 IMPRESSION: 1. Acute appearing transverse fracture of anterior aspect of T10 vertebral body is suboptimal evaluated. Recommend further evaluation with dedicated MRI spine. 2. Imaging findings suggestive of pulmonary edema associated with volume overload. Dependent atelectasis in the bilateral lungs with possible superimposed aspiration/pneumonia. 3. Small bilateral pleural effusions, greater on the left. 4. Cardiomegaly. Diffuse three-vessel coronary artery calcifications. 5. Evidence of prior granulomatous disease. 6. Additional imaging findings as described. MRI thoracic spine 07/31 1. Known acute/subacute T10 vertebral body fracture with associated marrow edema and approximately 10 to 15% vertebral body height loss. No significant retropulsion. 2. Adjoining endplate degenerative changes versus bone contusions along the anterior adjoining endplates of T5-6 and T7-T8. No significant vertebral body height loss or retropulsion at these levels. 3. No significant spinal canal or foraminal narrowing. 4. Unremarkable thoracic cord. 5. Partially imaged bilateral pleural effusion. Carotid US 07/31 IMPRESSION: 1. Right internal carotid artery: No stenosis. 2. Left internal carotid artery: <50% stenosis. 3. Vertebral arteries: Normal antegrade waveforms. Vein mapping 08/01 IMPRESSION: No deep venous thrombosis (DVT) in the femoropopliteal veins. 1. No DVT in the visible portions of the calf veins. 2. Great and small saphenous veins measurements as above. 3. The right great saphenous vein of the mid and distal calf are noncompressible/not visualized secondary to thrombus. 4. The left great saphenous vein of the thigh has a thickened wall. 5. The left great saphenous vein at the calf is not visualized and possibly thrombosed. 6. The left superficial saphenous mid to distal calf is thrombosed/not visualized. 7. Right popliteal fluid collection in keeping with a Cox's cyst Assessment & Plan Triple vessel coronary artery disease Acute non-ST elevation myocardial infarction (NSTEMI) (CMS/HCC) (HCC) Tachy-sen syndrome (CMS/HCC) (HCC) Tobacco use disorder Peripheral vascular disease ([facility]) Normocytic anemia Compression fracture of T10 vertebra (HCC) New onset of congestive heart failure (CMS/HCC) (HCC) Atrial fibrillation with RVR (CMS/HCC) (HCC) Prediabetes Diabetes mellitus (HCC) Risk Urgent CABG NSTEMI onset: 07/28 Left main stenosis Acute HF, LVEF: 45% Recent A fib, parosxymal Anemia, Hb 8.6 DM Hypertension Frail Current smoker DVT in bilateral SVG in the culf This case is deemed high risk for surgery considering frailty and conduit issue, which is not included in the STS risk score. We are going to discuss with the patient, family and cardiology intervention team about the plan, CABG vs PCI. Discussed with Dr Jacques Mejia. [1] Medications Prior to Admission Medication Sig Dispense Refill Last Dose/Taking evolocumab (Repatha SureClick) 140 MG/ML Subcutaneous Solution Auto-injector Inject 1 mL under the skin every 14 days. 2 mL 0 Cosigned by Jacques Mejia MD at 08/19/2024 1:57 PM CDT Associated attestation - Jacques Mejia MD - 08/19/2024 1:57 PM CDT I have seen and examined the patient with Fellow on 08/02/24 I have reviewed all the clinical information, lab investigations and imaging data. I agree with the above examination findings, assessment, and plan. I was present and supervised. [facility] 2024-08-01 14:54:14 ORS Spine PGY-4 Attestation I independently evaluated this patient and agree with the findings and the plan as detailed above. Edits have been made where appropriate. Briefly, this is a 69 y.o. female who is status post GLF sustaining a T10 extension type fx. We will plan for CT scans of the lumbar spine and cervical spine in the setting of DISH. We will order a TLSO brace for the patient to wear when she is out of bed. Disclaimer - Computer tianna to automatically perform the calculations of the MAGY neurology exam :: [employer] Algorithm Calculator Bradly Alcala Jr., MD Orthopaedic Surgery PGY-4 Pager# [phone] MSO# [id number] Ortho Spine Consult Note Reason for Consult: T10 vertebral body fx Source of Consult: CCU Consulting Attending: Orthopedic Spine Attending: Dr. Stephenson Date of Service: 08/01/2024 ORS Consult History and Physical Chief Complaint: No chief complaint on file. History of Present Illness: Nichelle Hampton is a 69 y.o. female status post ground level fall on 07/29/24 with a T10 vertebral body fx. Pt denies any pain to the back and denies ever having had back pain or back surgery before. Patient denies any other extremity pain, numbness, tingling, or weakness. Patient denies bowel or bladder incontinence. Patient denies saddle paresthesia. Patient denies difficulty with fine motor skills such as buttoning buttons or handwriting. Patient denies difficulty with balance. Patient denies taking anticoagulation medications but is actively admitted for CAD. Patient denies taking immunosuppressive medications. Osteoporosis meds/history: N/A Oncologic chemo meds/radiation history: N/A Problem List[1] Medical History[2] CAD, Afib, HTN Surgical History[3] Denies Current Medications[4] See mar Allergies[5] Tobacco Use History[6] Social History Substance and Sexual Activity Alcohol Use Yes Alcohol/week: 6.0 standard drinks of alcohol Types: 6 Cans of beer per week Comment: [place] EVERYOTHER WEEKEND Social History Substance and Sexual Activity Drug Use Never Family History[7] Review of Systems BP (!) 136/57 | Pulse 63 | Temp 36.9 ?C (98.4 ?F) | Resp (!) 25 | Ht 1.61 m (5' 3.39") | Wt 55.9 kg (123 lb 3.8 oz) | SpO2 98% | BMI 21.57 kg/m? Physical Exam: Gen: A&Ox4 , NAD, GCS 15 Resp: Unlabored with equal chest rise and fall on room air Spine: NTTP throughout, no gaps or step offs, no ecchymosis Rectal tone: refused Radha's: absent | Babinski: absent | Clonus: absent Reflexes: Sensory Exam: Sensation present to light touch throughout = 2, decreased sensation to light touch = 1, sensation absent = 0 C5 C6 C7 C8 T1 L2 L3 L4 L5 S1 S2 S3 S4 R 2 2 2 2 2 2 2 2 2 2 2 2 2 L 2 2 2 2 2 2 2 2 2 2 2 2 2 Motor Exam: ShlAbd ElbFlex WristExt ElbExt FingFlex MARIAMA HipFlex KneeExt AnkDF EHL Gastroc R 5/5 5/5 5/5 5/5 5/5 5/5 5/5 5/5 5/5 5/5 5/5 L 5/5 5/5 5/5 5/5 5/5 5/5 5/5 5/5 5/5 5/5 5/5 Imaging: CT spine shows Acute appearing transverse fracture of anterior aspect of T10 vertebral body MRI spine shows: 1. Known acute/subacute T10 vertebral body fracture with associated marrow edema and approximately 10 to 15% vertebral body height loss. No significant retropulsion. 2. Adjoining endplate degenerative changes versus bone contusions along the anterior adjoining endplates of T5-6 and T7-T8. No significant vertebral body height loss or retropulsion at these levels. 3. No significant spinal canal or foraminal narrowing. Labs: Lab Results Component Value Date WBC 11.28 (H) 08/01/2024 Hgb 10.0 (L) 08/01/2024 Plt Count 511 (H) 08/01/2024 Creatinine Lvl 0.73 08/01/2024 Hgb A1C 6.45 (H) 07/31/2024 MAGY Classification: E Assessment: Nichelle Hampton is a 69 y.o. female status post ground level fall with a T10 vertebral body fx. NTTP and asymptomatic without deficits. Plan: - Pending imaging studies: thoracic uprights - Bracing: none - Spine precautions: no heavy lifting, bending or twisting - Pain - multimodal pain regimen per primary - DVT prophylaxis: per protocol - Diet: per primary - Consult: PT/OT - Disposition: pending thoracic uprights. Tuesday-Tuesday between 6am and 4pm please call spine TIANNA at [facility] ([phone]) for questions, otherwise please page the ORS Spine resident through [employer] or the page band aid machine operator after hours. Spine Surgery Emergencies - Please call [phone]) Abiodun Benitez MD [1] Patient Active Problem List Diagnosis Acute hypoxic respiratory failure (HCC) New onset of congestive heart failure (CMS/HCC) (HCC) Cellulitis Atrial fibrillation with RVR (CMS/HCC) (HCC) Prediabetes Elevated troponin Hypertension Tobacco use Coronary artery disease Hyponatremia Hyperglycemia Pulmonary edema cardiac cause (CMS/HCC) (HCC) Triple vessel coronary artery disease Acute non-ST elevation myocardial infarction (NSTEMI) (CMS/HCC) (HCC) Tachy-sen syndrome (CMS/HCC) (HCC) Tobacco use disorder Peripheral vascular disease (HCC) Normocytic anemia Diabetes mellitus (HCC) [2] Past Medical History: Diagnosis Date Diabetes mellitus (HCC) PATIENT CLAIMED THAT SHE HAS DIABETES [3] History reviewed. No pertinent surgical history. [4] Current Facility-Administered Medications: amiodarone (Nexterone) 900 mg in dextrose 5 % 500 mL (1.8 mg/mL) infusion, 1 mg/min, Intravenous, Continuous, Nixon Bennett MD, Last Rate: 16.67 mL/hr at 08/01/24943, 0.5 mg/min at 08/01/24943 aspirin chewable tablet 81 mg, 81 mg, Oral, Daily, Haylee Meneses NP, 81 mg at 08/01/24928 atorvastatin (Lipitor) tablet 40 mg, 40 mg, Oral, Daily, Haylee Meneses NP, 40 mg at 08/01/24928 calcium gluconate 1g in NaCl 50mL IVPB 1 g, 1 g, Intravenous, PRN, Renetta Cedeño NP dextrose 50 % solution 12.5 g, 12.5 g, Intravenous, PRN, Haylee Meneses NP dextrose 50 % solution 25 g, 25 g, Intravenous, PRN, Haylee Meneses NP glucagon injection 1 mg, 1 mg, Intramuscular, PRN, Haylee Meneses NP heparin 50 units/mL in sodium chloride 0.45 %, 0.1-40 Units/kg/hr, Intravenous, Continuous, Haylee Meneses NP, Last Rate: 18.36 mL/hr at 08/01/24 1259, 17 Units/kg/hr at 08/01/241258 insulin lispro (HumaLOG, Admelog) injection 3-12 Units, 3-12 Units, Subcutaneous, TID PRN, Haylee Meneses NP magnesium sulfate IVPB 2 g, 2 g, Intravenous, PRN, Renetta Cedeño NP polyethylene glycol (PEG) 3350 (Miralax) packet 17 g, 17 g, Oral, Daily, Hemant Lauren MD, 17 g at 08/01/24 0929 potassium & sodium phosphates (Phos-NaK) 280-160-250 MG packet 2 packet, 2 packet, Oral, q4h PRN OR potassium & sodium phosphates (Phos-NaK) 280-160-250 MG packet 2 packet, 2 packet, Per G Tube, q4h PRN, Renetta Cedeño NP potassium chloride IVPB 20 mEq, 20 mEq, Intravenous, PRN OR potassium chloride IVPB 10 mEq, 10 mEq, Intravenous, PRN OR potassium chloride CR (Klor-Con M20) ER tablet 20 mEq, 20 mEq, Oral, PRN OR Potassium chloride solution 20 mEq, 20 mEq, Per G Tube, PRN, Renetta Cedeño NP sennosides (Senokot) tablet 8.6 mg, 1 tablet, Oral, BID, Hemant Lauren MD, 8.6 mg at 08/01/24 0928 sodium chloride (NS) 0.9 % flush 10 mL, 10 mL, Intravenous, q12h DARYL, Haylee Meneses NP, 10 mL at 08/01/24 0900 sodium chloride (NS) 0.9 % flush 10 mL, 10 mL, Intravenous, PRN, Haylee Meneses NP sodium phosphates 45 mmol in sodium chloride 0.9 % 100 mL IVPB, 45 mmol, Intravenous, PRN, Renetta Cedeño NP [5] No Known Allergies [6] Social History Tobacco Use Smoking Status Former Current packs/day: 0.00 Types: Cigarettes Quit date: 1966 Years since quittin.2 Smokeless Tobacco Current Tobacco Comments PATIENT VERBALIZED "WELL NOW THAT I AM IN THE HOSPITAL, I CAN'T REALLY SMOKE [7] Family History: Problem Relation Name Age of Onset Diabetes Mother No Known Problems Father Cosigned by Hipolito Stephenson MD at 08/04/2024 11:42 AM CDT Associated attestation - Hipolito Stephenson MD - 08/04/2024 11:42 AM CDT I saw and evaluated the patient, participating in the morales portions of the service. I reviewed the resident's note. I agree with the resident's findings and plan. 69 F with T10 extension injury without posterior element involvement. C spine CT without injury. L spine CT shows L L1, L2 fx. Upright xr demonstrate stable fracture alignment. Patient is neurovascularly intact. Plan for TLSO when out of bed. Follow up in 2 weeks with Thu Champagne NP [facility] 2024-07-31 11:00:00 Spiritual Care Subjective The patient shared that she was doing better. Sales Project Engineer provided a prayer as requested. Reason For Visit Care Recipient: Patient Time spent: 15 minutes Reason for Visit: Admission request Interventions Relationship Building Interventions: Cultivated a relationship of care and support, Listened with empathy, Provided relationship support, Provided compassionate presence Exploration Interventions: Explored emotional needs and resources, Explored relational needs and resources, Explored spiritual needs and resources Empowerment Interventions: Provided power manager education, Encouraged focus on present, Encouraged self-care Outcomes Expressed: Gratitude Assessment Spiritual Resources: Gratitude Relational Resources: Friends, Family Plan Follow-up: No follow-up warranted at this time Pastoral Care [facility] 2024-07-31 03:16:27 ID CRITICAL CARE ICU HISTORY AND PHYSICAL Nichelle Hampton is a 69 y.o. female w/ hx of htn, dm2, cad, tobacco use, who initially presented at outside hospital for acute hypoxemic respiratory failure on BIPAP, workup including C showed severe left main disease and severe multivessel coronary disease, transferred to [facility] for CABG vs high risk PCI. Patient was admitted on 07/24/24 at outside hospital for sepsis in the setting of left hand cellulitis for which she was on antibiotics. During her hospital stay, she developed acute hypoxic respiratory failure in the setting of possibly newly diagnosed CHF, CTA chest was performed revealed classic signs of pulmonary congestion without evidence of PE. Labs were notable for elevated BNP. Her heart rate was noted to be tachycardic, consistent with A-fib with RVR. She received a bolus of amiodarone leading to improvement of heart rate, and was subsequently started on therapeutic Lovenox for anticoagulation. Her troponin levels were elevated to 1900>> 1500. She was placed on BiPAP and started on Lasix, however course was complicated by hypotension, leading to discontinuation of Lasix. Management of her AHRF also included steroids, inhalers, and other supportive therapies. Given the need for specialized cardiology and ICU care, she was transferred to [facility] on 07/28/24 for further management and close monitoring. On 07/30/24, the patient had LHC and RHC completed, notable for severe left main and multivessel coronary disease. In addition, she had MARQUES and DCCV for afib. She was then transferred to [facility] for CABG vs high risk PCI. At this time, the patient feels well. Has no complaints. No chest pain or palpitations. No shortness of breath or wheezing. No lower extremity edema. Medical History: Past Medical History: Diagnosis Date Diabetes mellitus (HCC) PATIENT CLAIMED THAT SHE HAS DIABETES Surgical History: History reviewed. No pertinent surgical history. Family History: Family History: Family history unknown: Yes Social History: Social History Socioeconomic History Marital status: Spouse name: Not on file Number of children: Not on file Years of education: Not on file Highest education level: Not on file Occupational History Not on file Tobacco Use Smoking status: Not on file Smokeless tobacco: Not on file Vaping Use Vaping status: Not on file Substance and Sexual Activity Alcohol use: Not on file Drug use: Not on file Sexual activity: Not on file Other Topics Concern Not on file Social History Narrative Not on file Social Drivers of Health Financial Resource Strain: Not on file Food Insecurity: No Food Insecurity (07/31/2024) Hunger Vital Sign Worried About Running Out of Food in the Last Year: Never true Ran Out of Food in the Last Year: Never true Transportation Needs: No Transportation Needs (07/31/2024) PRAPARE - Transportation Lack of Transportation (Medical): No Lack of Transportation (Non-Medical): No Physical Activity: Not on file Stress: Not on file Social Connections: Not on file Intimate Partner Violence: Not At Risk (07/31/2024) Humiliation, Afraid, Rape, and Kick questionnaire Fear of Current or Ex-Partner: No Emotionally Abused: No Physically Abused: No Sexually Abused: No Housing Stability: Low Risk (07/31/2024) Housing Stability Vital Sign Unable to Pay for Housing in the Last Year: No Number of Times Moved in the Last Year: 0 Homeless in the Last Year: No Physical Exam Vitals: 07/31/24 0300 07/31/24 0400 07/31/24 0414 BP: (!) 120/58 (!) 118/56 Pulse: 66 62 86 Resp: (!) 42 (!) 24 21 Temp: 36.8 ?C (98.3 ?F) 36.9 ?C (98.4 ?F) SpO2: 97% 98% Intake/Output Summary (Last 24 hours) at 07/31/2024 0438 Last data filed at 07/31/2024 0400 Gross per 24 hour Intake 4.28 ml Output -- Net 4.28 ml General: NAD Neuro: no focal deficits appreciated, moving all 4 extremities symmetrically HEENT: no scleral icterus CV: 2+ pulses, RRR Pulm: Symmetric chest rise, no apparent respiratory distress Abd: soft, NTND Extremities: no lower extremity edema Skin: No cyanosis Problem List: #acute hypoxemic respiratory failure #CHF #cellulitis #afib RVR #dm2 #htn #coronary artery disease #tobacco use Neuro/Psych: No acute process - CT Head if focal neurological deficits - Delirium precautions with family visitation, frequent re-orientation, regulation of day night cycles - Limit benzos/opiates/anticholinergic s as able given high risk for delirium Cardiovascular: #CAD #severe LM and multivessel coronary disease [facility] (07/30/24) notable for severe 80% LM disease, and severe multivessel disease. - NPO for possible high risk PCI vs cabg - asa, atorvastatin #CHF MARQUES, mild global hypokinesis, reduced EF 45-50% #afib-rvr S/p MARQUES and DCCV (07/30/24). Currently on amiodarone - amiodarone drip (held for hypotension) - heparin drip #htn Hold antihypertensives, soft bps Respiratory: #acute hypoxemic respiratory failure Concern for pulmonary edema 2/2 chf vs afib-rvr. Improving, on 2L O2 - Titrate oxygen therapy to SpO2>92% - Encourage IS/mobility as able GI/Nutrition: No acute issue - GI prophylaxis - protonix - Nutrition: NPO - Last BM: Last BM Date: 07/30/24 (07/31/24399) - Bowel regimen: senna/miralax Renal/Electrolytes: No acute issue Intake/Output Summary (Last 24 hours) at 07/31/2024 0438 Last data filed at 07/31/2024 0400 Gross per 24 hour Intake 4.28 ml Output -- Net 4.28 ml - Trend daily electrolytes - Replete electrolytes to maintain K+ of 4, Mg of 2+, and Phos of 3 per protocol - Volume mgmt per CV section above Endo: #dm2 HbA1c: 6.27 | TSH: 1.224 - Glucose mgmt (goal 140-180): Lispro ISS Heme/Onc: Results from last 7 days Lab Units 07/31/24 0324 07/30/24 2312 07/30/24 0655 07/30/24 0348 07/29/24 2340 07/29/24 1730 07/29/24 1027 07/29/24 0030 INR 1.05 -- -- -- -- 1.07 < > -- PTT Seconds 114.9* 48.7* 67.4* -- < > 63.0* < > 51.3* PLATELETS 10*3/uL 458* -- -- 378 -- -- -- 291 HEMOGLOBIN g/dL 9.8* -- -- 9.8* -- -- -- 8.8* < > = values in this interval not displayed. #Anemia - anemia workup pending CABG vs PCI - Transfuse for Hgb<7 (<8 if CAD) or hemodynamic instability with active bleeding - Anticoagulation: see CV section above, ICU checklist below - No evidence of active bleeding - heparin drip ID: Temp (24hrs), Av.8 ?C (98.3 ?F), Min:36.1 ?C (97 ?F), Max:37.2 ?C (99 ?F) Lab Results Component Value Date Procalcitonin 2.22 (HH) 07/28/2024 Lab Results Component Value Date MRSA by PCR Negative 07/28/2024 #Cellulitis - spider bite s/p 5-day course of unasyn - Patient with no active signs/symptoms of infection - Monitor WBC/temperature curve; low threshold to obtain CXR, Blood cx, Resp Cx, UA/Ucx, other imaging as indicated and start Abx MSK/Skin/Rehab: - PT/OT frequently and will encourage ambulation -Continue wound care as needed and sacral decubitus prevention. ICU Checklist - SAT: n/a - SBT: n/a - VTE ppx: heparin - 50 units/mL - GI ppx: pantoprazole - 40 MG - Nutrition: NPO Diet - Last BM: Last BM Date: 07/30/24 (07/31/24399) - Bowel regimen: senna/miralax - Glucose mgmt (goal 140-180): ISS lispro - Lines/Drains: Perkins not present, central line not present, arterial line not present, drains not present, feeding tube not present - Wounds: n/a - PT/OT: order when appropriate - Restraints: not present - Code status: Full Code - Dispo: ICU status due to high probability of imminent or life-threatening deterioration. Plan discussed with treatment team as outlined. Total time spent evaluating, coordinating, managing, and providing care to the ICU patient. Time exclusive of procedures. _ Hemant Lauren MD - PGY-4 Pulmonary and Critical Care Fellow Cosigned by David Parra MD at 08/08/2024 2:33 PM CDT Pulmonary Disease [facility] 2024-07-28 11:09:36 Associated Order(s): IP CONSULT TO CARDIOLOGY CARDIOLOGY INITIAL CONSULT NOTE No chief complaint on file. Reason for consultation: Elevated troponin HPI: Nichelle Hampton is a 69 y.o. female with past medical history of hypertension, diabetes mellitus, reported history of coronary artery disease and tobacco use presenting to [facility] as a transfer from an outside hospital for persistent hypoxic respiratory failure requiring BiPAP as well as elevated troponin. As per the history patient was admitted on July 24 at the outside hospital for sepsis in the setting of left hand cellulitis for which she was on antibiotics. During her hospital stay, she developed acute hypoxic respiratory failure in the setting of possibly newly diagnosed CHF, CTA chest was performed revealed classic signs of pulmonary congestion without evidence of PE. Labs were notable for elevated BNP. Her heart rate was noted to be tachycardic, consistent with A-fib with RVR. She received a bolus of amiodarone leading to improvement of heart rate, and was subsequently started on therapeutic Lovenox for anticoagulation. Her troponin levels were elevated to 1900>> 1500. She was placed on BiPAP and started on Lasix, however course was complicated by hypotension, leading to discontinuation of Lasix. The complexity of presentation she is now admitted to [facility] for further care as well as management of her elevated troponin. Currently patient feels improved. She went into atrial fibrillation with RVR earlier this afternoon and was started on Amiodarone drip and has had intermittent AF RVR since then. Review of Systems 12 point ROS is negative except as mentioned above in the HPI No past medical history on file. No past surgical history on file. No family history on file. Objective Physical Exam Vitals: 07/28/24 1800 07/28/24 1900 07/28/24200207/28/242 BP: (!) 108/53 108/64 94/70 Pulse: (!) 164 (!) 141 (!) 150 (!) 142 Resp: (!) 38 (!) 35 (!) 26 (!) 28 Temp: SpO2: 91% 94% 94% 95% General: No acute distress, answers all questions appropriately HEENT: Neck supple, normocephalic, atraumatic, JVD seen Cardiovascular: Irregularly irregular rhythm, S1 and S2 normal, no obvious murmur/rub/gallop Respiratory: Decreased breath sounds, nasal cannula in place Abdomen: Soft, Non tender, non distended Extremities: No significant lower extremity edema, pulses equal bilateral limbs, no cyanosis, clubbing or erythema Neurology: Awake, alert and oriented, moves all extremities Skin: Normal color, normal skin tone Cardiographics Encounter Date: 07/28/24 ECG 12 lead Result Value Ventricular Rate 77 Atrial Rate 77 W[place] Interval 122 QRS Duration 74 QT/QTc 424 QTc Calculation 479 P-Dayton 44 R-Dayton -15 T-Dayton 20 Impression SINUS RHYTHM NORMAL ECG NO PREVIOUS ECGS AVAILABLE Transthoracic echo (TTE) complete Result Date: 07/28/2024 Patient is in atrial fibrillation with RVR at the time of this study. LV systolic function assessment is suboptimal. Left Ventricle: Left ventricle size is normal. Mild global hypokinesis present. Mildly reduced systolic function with an estimated EF of 45 - 50%. Right Ventricle: Right ventricle size is normal. Normal systolic function in the right ventricle. Left Atrium: Left atrium is moderately dilated. Mitral Valve: Moderate mitral regurgitation present. Tricuspid Valve: Mild to moderate tricuspid regurgitation present. Mild to moderate pulmonary hypertension present. RVSP is 46.00 mmHg. Pericardium: Trivial pericardial effusion present. Left pleural effusion present. Imaging Encounter Date: 07/28/24 XR chest 1 view Narrative EXAM: Chest x-ray, 1 view(s). CLINICAL HX: Reason for study: SOB Relevant clinical info: . Age: 69 years. Gender: Female. TECHNIQUE: As above. Facility: [facility]. COMPARISON: Chest x-ray: Yesterday. Impression 1. Support apparatus: None. 2. Stable marked interstitial edema. 3. Stable mild pleural effusions. 4. No pneumothorax. Electronically signed by: Craig Shelton MD 07/28/2024 06:11 AM [facility] Lab Review All pertinent labs reviewed in detail. ASSESSMENT AND PLAN: Paroxysmal atrial fibrillation with RVR Acute hypoxic respiratory failure likely due to pulmonary edema and superimposed pneumonia Acute systolic congestive heart failure Acute pulmonary edema Sepsis due to cellulitis and/or pneumonia Elevated troponin with pattern suspicion for type I OR Anemia The current presentation is likely consistent with acute hypoxic respiratory failure that got precipitated in the setting of sepsis and cellulitis and she may have received IV fluids at the outside hospital She does have elevated troponin and the pattern seems to be suspicious for type I myocardial infarction however in the setting of severe hypoxic respiratory failure and sepsis a demand supply mismatch process cannot be excluded 2D echocardiogram was done at the time of AF with RVR and showed mild global LV dysfunction Regarding AF management, she has already received Amiodarone at the outside hospital and was converted into SR upon arrival here but went into AF early this afternoon and I recommend continuing Amiodarone drip at this time, Digoxin load and low dose Metoprolol also as tolerated Regarding acute CHF, she is on Lasix drip at this time with good urine output and thus continue as long as renal function is steady Regarding NSTEMI, continue Heparin drip and will plan for right heart cath and left heart cath likely on Tuesday Continue aspirin 81 mg daily along with statin Wean off BiPAP/HFNC as tolerated Will follow this patient closely during this hospitalization make changes to her care plan as needed Complex patient requiring ICU level of care Thank you for involving me in the care of your patient. Please call if you have any additional questions/concerns. Rafal Davidson MD 07/28/24 8:34 PM [facility] 2024-07-28 08:32:58 Reason For Consult Acute hypoxemic respiratory failure History Of Present Illness Nichelle Hampton is a 69 y.o. female presenting with with acute respiratory failure requiring BiPAP from [facility]. She had initially presented there on July 24, 2024 after a spider bite to her left hand for which she was admitted for cellulitis and sepsis and started on antibiotics. In the interim left hand cellulitis is significantly improved per patient. However hospital course was complicated by new onset A-fib RVR, pulmonary edema, acute hypoxemic respiratory failure requiring BiPAP. She did receive Lovenox, amiodarone, and also diuresis with Lasix which was then subsequently held for hypotension. She was transferred here for further management given need for ICU level care and cardiology input. She denies chest pain, syncope Past Medical History She has no past medical history on file. Surgical History She has no past surgical history on file. Social History She has no history on file for tobacco use, alcohol use, and drug use. Allergies Patient has no known allergies. Medications No medications prior to admission. Review of Systems Negative except as in HPI above Physical Exam Gen: not in overt distress, Bipap + HEENT: anicteric, acyanosed, moist, pink, supple neck Neuro: alert and oriented, follows commands Cardio: S1S2 reg, warm ext Pulm: equal chest expansion, CTAB, Abd: non-distended, soft, non-tender Derm: Left hand erythematous + Last Recorded Vitals Blood pressure 136/65, pulse 77, temperature 36.1 ?C (97 ?F), temperature source Axillary, resp. rate (!) 29, weight 54.9 kg (121 lb 0.5 oz), SpO2 94%. Relevant Results Pertinent Labs : Lab Results Component Value Date WBC 7.45 07/28/2024 Hgb 9.8 (L) 07/28/2024 Hct 28.1 (L) 07/28/2024 Plt Count 294 07/28/2024 Lab Results Component Value Date Sodium Lvl 132 (L) 07/28/2024 Potassium Lvl 4.5 07/28/2024 Chloride Lvl 99 07/28/2024 CO2 Lvl 23.0 07/28/2024 BUN 24 (H) 07/28/2024 Creatinine Lvl 0.91 07/28/2024 Glucose Lvl 200 (H) 07/28/2024 POC Glu 216 (H) 07/28/2024 Lab Results Component Value Date Calcium Lvl 9.3 07/28/2024 Magnesium 2.38 07/28/2024 Phosphorus Lvl 3.9 07/28/2024 Lab Results Component Value Date AST 27 07/28/2024 ALT 19 07/28/2024 Alkaline Phosphatase 89 07/28/2024 Lab Results Component Value Date PTT 36.2 (H) 07/28/2024 Prothrombin Time (PT) 17.5 (H) 07/28/2024 INR 1.41 (H) 07/28/2024 No results found for: "COLORU", "CLARITYU", "SPECGRAV", "PHUR", "PROTUR", "GLUCOSEU", "KETONESU", "NITRITEU", "LEUKOCYTESUR", "BILIRUBINUR", "UROBILINOGEN" Lab Results Component Value Date HS Troponin I 1,119 (H) 07/28/2024 Assessment & Plan Acute hypoxic respiratory failure (HCC) -Continue BiPAP; optimize settings; wean as appropriate -Bronchodilators New onset of congestive heart failure (CMS/HCC) ([facility]) -Diurese with Lasix -Aspirin, heparin infusion -Obtain echocardiogram -Cardiology consult Cellulitis - Antibiotics; likely continue antibiotics for another 4 to 5 days; follow-up culture Atrial fibrillation with RVR (CMS/HCC) (HCC) -Low-dose metoprolol; titrate as indicated Diabetes mellitus (HCC) - Insulin sliding scale Elevated troponin -As above Hypertension As above Tobacco use Counseled on cessation Coronary artery disease As above Hyponatremia Monitor Hyperglycemia Insulin sliding scale Pulmonary edema cardiac cause (CMS/HCC) ([facility]) As above OTHERS - ppx I spent 30 min of Critical care time , in reviewing, laboratory and radiographic data, in direct management of patient at bedside as well as coordination. Time spent does not include time spent by any other provider or time spent in doing procedure. Patient required critical care due to the acute impairment of vital organ systems and a high probability of imminent and life threatening deterioration. [facility] History and Physical Notes Date/Time Note Provider Source 2024-07-31 03:22:02 History Of Present Illness Nichelle Hampton is a 69 y.o. female with a past cardiac history of Multivessel coronary artery disease: [facility] (07/30/24): LM 80% lesion extending to ostial LAD, 60-70% proximal LAD lesion, 70-80% proximal RCA lesion. 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 RHC (07/30/24): RA 4, PA 36/12 (22), PW 12-14, F-CO/CI: 3.4/2.2. Paroxysmal, non-valvular atrial fibrillation ([id number] >= 3). Rapid ventricular rate s/p 1x 200 J DCCV (07/30/24): [facility] (07/30/24): Negative for ANDREY thrombus. Concern for sick sinus syndrome, tachy-sen syndrome, sinus exit block Peripheral vascular disease: [facility] (07/30/24): severe right femoral artery PAD Hypertension She has a past medical history of Prediabetes (Hemoglobin A1c 6.27%) Tobacco use disorder Normocytic anemia She presents as a transfer from [facility] for evaluation of her multivessel coronary artery disease. She was initially admitted for a spider bite complicated by cellulitis on 07/24/24 at an OSH. Her course was complicated by acute hypoxemic respiratory failure 2/2 HFmrEF exacerbation, NSTEMI, and atrial fibrillation with RVR. Patient was started on diuresis, amiodarone, and BPAP. She was transferred to [facility] for higher level of care. Patient eventually weaned to nasal cannula after diuresis. At [facility], LHC demonstrated triple vessel disease with significant LM involvement. IABP not placed due to significant PAD of right femoral artery. RHC demonstrated normal filling pressures after diuresis. She required DCCV for atrial fibrillation with RVR, [facility]QUES around the time was negative for ANDREY thrombus. 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 However, she does not perform intense physical activity. She currently denies orthopnea, peripheral edema, presyncope, syncope, and palpitations (she does not remember her cardioversion). Past Medical History She has no past medical history on file. Surgical History She has no past surgical history on file. Family History No family history on file. Social History She has no history on file for tobacco use, alcohol use, and drug use. Allergies Patient has no known allergies. Medications Medications Prior to Admission Medication Sig Dispense Refill Last Dose/Taking evolocumab (Repatha SureClick) 140 MG/ML Subcutaneous Solution Auto-injector Inject 1 mL under the skin every 14 days. 2 mL 0 Review of Systems Constitutional: Negative. HENT: Negative. Respiratory: Negative. Cardiovascular: Negative. Gastrointestinal: Negative. Endocrine: Negative. Genitourinary: Negative. Musculoskeletal: Negative. Neurological: Negative. Hematological: Negative. Physical Exam: Constitutional: Appearance: Normal appearance. HENT: Head: Normocephalic and atraumatic. Eyes: General: Right eye: No discharge. Left eye: No discharge. Conjunctiva/sclera: Conjunctivae normal. Cardiovascular: Rate and Rhythm: Normal rate and regular rhythm. Heart sounds: Normal heart sounds. No murmur heard. Comments: Telemetry intermittently alternating between atrial fibrillation with rapid ventricular rate and sinus bradycardia Pulmonary: Effort: Pulmonary effort is normal. Breath sounds: Normal breath sounds. Comments: On 2 L NC Abdominal: General: Abdomen is flat. Palpations: Abdomen is soft. Musculoskeletal: General: No swelling. Right lower leg: No edema. Left lower leg: No edema. Skin: General: Skin is warm and dry. Capillary Refill: Capillary refill takes less than 2 seconds. Coloration: Skin is not pale. Neurological: General: No focal deficit present. Mental Status: She is alert. Mental status is at baseline. Psychiatric: Mood and Affect: Mood normal. Behavior: Behavior normal. Last Recorded Vitals Blood pressure (!) 120/58, pulse 66, resp. rate (!) 42, SpO2 97%. Relevant Results: - CMP: elevated bicarbonate - CBC: Mildly elevated WBC, normocytic anemia EKG: Normal sinus rhythm Discussion: Nichelle Hampton is a 69 y.o. female with a past cardiac history of Multivessel coronary artery disease: [facility] (07/30/24): LM 80% lesion extending to ostial LAD, 60-70% proximal LAD lesion, 70-80% proximal RCA lesion. 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 RHC (07/30/24): RA 4, PA 36/12 (22), PW 12-14, F-CO/CI: 3.4/2.2. Paroxysmal, non-valvular atrial fibrillation ([id number] >= 3). Rapid ventricular rate s/p 1x 200 J DCCV (07/30/24): [facility] (07/30/24): Negative for ANDREY thrombus. TSH 1.22 (07/28/24). Concern for sick sinus syndrome, tachy-sen syndrome, sinus exit block Peripheral vascular disease: [facility] (07/30/24): severe right femoral artery PAD Hypertension She has a past medical history of prediabetes (Hemoglobin A1c 6.27%), tobacco use disorder, normocytic anemia Assessment & Plan Acute non-ST elevation myocardial infarction (NSTEMI) (CMS/HCC) (HCC) Triple vessel coronary artery disease - Start atorvastatin 40 mg PO daily - Start aspirin 81 mg PO daily - Pending heart team discussion in morning regarding optimal revascularization strategy given LM disease and multivessel CAD New onset of congestive heart failure (CMS/HCC) (HCC) - Repeat TTE now patient in sinus rhythm Acute hypoxic respiratory failure (HCC) - Repeat CXR - Will consider diuresis in AM Tachy-sen syndrome (CMS/HCC) (HCC) Atrial fibrillation with RVR (CMS/HCC) (HCC) - Continue heparin drip while hospitalized - HOLD amiodarone for now - Consider EP consult in morning for tachybrady syndrome. Etiology concerning for ischemia to SA node. Peripheral vascular disease (HCC) - Follow up arterial doppler ultrasound - Consider carotid ultrasound if considering CABG - Statin and antiplatelets as above (see CAD section) Prediabetes - Sliding scale insulin Normocytic anemia - Consider reticulocyte count, ferritin, TIBC/iron saturation, folate, and vitamin B12 in AM Tobacco use disorder - Outpatient PFT's to screen for COPD after hospitalization - Tobacco cessation counseling in morning Current Diet: NPO Diet Cosigned by Cruz Solomon MD at 07/31/2024 10:48 PM CDT Associated attestation - Cruz Mccabe MD - 07/31/2024 10:48 PM CDT Cardiology Staff Attestation Patient was admitted last night by the on-call spout liner. I have seen and examined the patient with Dr. Marks on 07/31/2024. I have reviewed all the clinical information, lab investigations, radiographic and other imaging data. I agree with findings, assessment and plan as outlined. Treatment plan was formulated under my direct supervision. 69 yo F with history of HTN, HLD, diagnosed NSTEMI (OSH). Work-up showed MV-CAD (Distal LM: 80% into oLAD, p-mLAD: 60-70%, p-mRCA: long 70-80%, LCx: OM with diffuse disease - RA: 4. PA: 36/12 (22). W: 12-14 -CO/CI: 3.4/2.2). Hospital admission c/w new diagnosis of paroxysmal AFib RVR s/p DCCV (07/30/24). Asymptomatic from the cardiovascular standpoint since admission. TTE: LVEF: 45-50% - LVEDd: 4.[address] chest revealed T10 transverse. MRI pending. Possible evaluation by neurosurgery vs. Ortho spine. Hemodynamically stable. Not on vasoppressors or inotropic support. CT surgery and interventional cardiology evaluation. Active medical conditions, plan and recommendations were discussed in length with the patient. Family updated All the questions were answered. This patient is critically ill. The patient care involves high complexity medical decision making and ICU level of care. There was a high probability of imminent life-threatening deterioration in the patient's condition. I spent 53 minutes of critical care time with this patient. This is the total time I spent evaluating, coordinating, managing and providing care to the patient as well as time spent in documenting such activities. This time is exclusive of time required to perform procedures required during patient management. (This note was dictated using voice recognition speech to text software and may contain inadvertent recognition errors). [facility] 2024-07-28 05:35:48 Consults No chief complaint on file. History Of Present Illness Nichelle Hampton is a 69 y.o. female with past medical history HTN, DM, CAD, noncompliance, tobacco use presenting as a transfer from OSH to ICU for acute hypoxic respiratory failure on BiPAP. Patient was admitted on July 24 at outside hospital for sepsis in the setting of left hand cellulitis for which she was on antibiotics. During her hospital stay, she developed acute hypoxic respiratory failure in the setting of possibly newly diagnosed CHF, CTA chest was performed revealed classic signs of pulmonary congestion without evidence of PE. Labs were notable for elevated BNP. Her heart rate was noted to be tachycardic, consistent with A-fib with RVR. She received a bolus of amiodarone leading to improvement of heart rate, and was subsequently started on therapeutic Lovenox for anticoagulation. Her troponin levels were elevated to 1900>> 1500. She was placed on BiPAP and started on Lasix, however course was complicated by hypotension, leading to discontinuation of Lasix. Management of her AHRF also included steroids, inhalers, and other supportive therapies. Given the need for specialized cardiology and ICU care, she was transferred to [facility] for further management and close monitoring. Past Medical History She has no past medical history on file. Surgical History She has no past surgical history on file. Family History No family history on file. Social History She has no history on file for tobacco use, alcohol use, and drug use. Allergies Patient has no known allergies. Medications Prior to Admission medications Not on File Current Facility-Administered Medications: acetaminophen (Tylenol) tablet 650 mg, 650 mg, Oral, q6h PRN, Gab Tony NP ampicillin-sulbactam (Unasyn) 1.5 g in sodium chloride 0.9 % 100 mL IVPB-MB+, 1.5 g, Intravenous, q6h, Gab Tony NP aspirin EC EC tablet 81 mg, 81 mg, Oral, Daily, Gab Tony NP dextrose 50 % solution 12.5 g, 12.5 g, Intravenous, PRN, Gab Tony, HAILEY dextrose 50 % solution 25 g, 25 g, Intravenous, PRN, Gab Tony NP glucagon injection 1 mg, 1 mg, Intramuscular, PRN, Gab Tony NP heparin 1000 units/mL injection 1,100 Units, 20 Units/kg, Intravenous, PRN, Gab Tony NP heparin 1000 units/mL injection 2,300 Units, 40 Units/kg, Intravenous, PRN, Gab Tony NP heparin 50 units/mL in sodium chloride 0.45 %, 0.1-40 Units/kg/hr, Intravenous, Continuous, Gab Tony NP insulin lispro (HumaLOG, Admelog) injection 2-8 Units, 2-8 Units, Subcutaneous, q4h PRN, Gab Tony NP, 4 Units at 07/28/24 0520 ipratropium (Atrovent) 0.02 % nebulizer solution 0.5 mg, 0.5 mg, Nebulization, q6h, Gab Tony NP melatonin tablet 3 mg, 3 mg, Oral, Nightly PRN, Gab Tony NP metoprolol tartrate (Lopressor) tablet 12.5 mg, 12.5 mg, Oral, q12h DARYL, Gab Tony NP mupirocin (Bactroban) 2 % ointment, , Topical, BID, Gab Tony NP nystatin (Mycostatin) 273464 UNIT/GM powder, , Topical, PRN, Gab Tony NP polyethylene glycol (PEG) 3350 (Miralax) packet 17 g, 17 g, Oral, Daily PRN, Gab Tony NP senna-docusate (Zully-Colace) 8.6-50 mg per tablet 2 tablet, 2 tablet, Oral, BID, Gab Tony NP sodium chloride (NS) 0.9 % flush 10 mL, 10 mL, Intravenous, q12h, Gab Tony NP, 10 mL at 07/28/24 0503 sodium chloride (NS) 0.9 % flush 10 mL, 10 mL, Intravenous, PRN, Gab Tony NP sodium chloride 0.9 % infusion 250 mL, 250 mL, Intravenous, PRN, Gab Tony NP ROS 14 point ROS negative except as per above Physical exam Gen: awake & alert oriented x3 HEENT: head atraumatic normocephalic pupils are equal round reactive extraocular muscles are intact, no JVD no thyromegaly, neck supple, no lymphadenopathy. Chest: clear to auscultation bilaterally. CVS: regular rate rhythm no murmurs rubs or gallops. GI: Abdomen soft, nontender to palpation, nondistended bowel sounds present. Extremities: with no clubbing cyanosis or edema. Neuro: no focal neuro deficits cranial nerves are intact. Psycho: normal affect Skin: with no rashes no erythema. BP 136/65 | Pulse 78 | Temp 36.1 ?C (97 ?F) (Axillary) | Resp 13 | SpO2 95% Relevant Results Lab Results Component Value Date WBC 7.45 07/28/2024 Hgb 9.8 (L) 07/28/2024 MCV 94.6 07/28/2024 Plt Count 294 07/28/2024 Lab Results Component Value Date Sodium Lvl 132 (L) 07/28/2024 Potassium Lvl 4.5 07/28/2024 Chloride Lvl 99 07/28/2024 CO2 Lvl 23.0 07/28/2024 BUN 24 (H) 07/28/2024 Creatinine Lvl 0.91 07/28/2024 Glucose Lvl 200 (H) 07/28/2024 POC Glu 216 (H) 07/28/2024 Lab Results Component Value Date AST 27 07/28/2024 ALT 19 07/28/2024 Alkaline Phosphatase 89 07/28/2024 XR chest 1 view (Results Pending) Assessment & Plan Acute hypoxic respiratory failure (HCC) Most likely in the setting of CHF exacerbation, rule out COPD. CT imaging reviewed from outside hospital c/f pulmonary congestion. Labs with elevated BNP Patient is currently on BiPAP. Will obtain ABG. Wean as tolerated. Will also continue IV Solu-Medrol, DuoNebs, Pulmicort, cough supplements. Follow-up routine labs ABG, CBC, CMP, influenza panel, procalcitonin, lactic acid levels New onset of congestive heart failure (CMS/HCC) ([facility]) C/f new onset CHF Labs were notable for elevated troponin in outside hospital 1900--1500. Will obtain repeat troponins, EKGs We will start patient on heparin gtt. Will start IV Lasix as tolerated. Cardiology consulted via transfer team Dr. Davidson, appreciate recommendations Continue with aspirin, Plavix, metoprolol, consider to add SUSIE inhibitors as tolerated. Follow-up 2D echocardiogram Strict intake output monitoring Elevated troponin Plan as above Coronary artery disease Known history, on aspirin and Plavix Follow-up repeat troponin Atrial fibrillation with RVR (CMS/HCC) ([facility]) Heart rate currently is in 70s to 80s She received amiodarone bolus at outside hospital. Continue with amiodarone p.o. On heparin gtt. for anticoagulation Follow-up TSH Cellulitis Cellulitis of the hand which is improving Continue antibiotics Blood cultures and MRSA from outside hospital are negative Diabetes mellitus ([facility]) Follow-up A1c Insulin sliding scale Hypertension Known history, will continue home medications Tobacco use Extensive counseling given I spent I spent 55 minutes of critical care time Prophylaxis PPIs while on heparin Current Diet: NPO Diet NPO except: Sips with meds [facility] Procedure Notes Date/Time Note Provider Source 2024-08-13 16:28:50 ARTERIAL LINE EXCHANGE PROCEDURE NOTE Procedure Performed: arterial line exchange Ultrasound Guidance: N/A Primary Indication: Continuous blood pressure monitoring Informed Consent & Time Out: Were obtained and performed as appropriate. Barrier Precautions & Sterile Technique: As documented in the Pre-Procedure Check List. Documentation of Procedure: [place] sterile precautions including surgical cap, mask with protective eyewear, full gown and sterile gloves throughout the procedure. The patient s Site: right radial artery area was prepped by removing old dressing and suture, cleaned, and draped in the usual sterile fashion. Line was removed from existing catheter and guide wire was advanced without resistance. Prior catheter was removed. Pressure applied to stop bleeding to allow for outer gloves to be exchange to ensure sterile field. New catheter was threaded and advanced. Guide wire removed, and line was reconnected with good wave form. 1% lidocaine used for local anesthesia prior to securing catheter with suture. Dressing place. Patient tolerated procedure without issue. Local Anesthesia: 1% lidocaine Number of Kits Used: 1 Sterile Dressings: Applied Estimated Blood Loss: Minimal Specimens Collected: Non-applicable Complications: None Supervising Physician: Dr. Rodarte Cosigned by Quirino Rodarte MD at 08/13/2024 5:51 PM CDT Associated attestation - Quirino Rodarte MD - 08/13/2024 5:51 PM CDT HVI5.517/HVI5.517 - Nichelle Hampton - 69 y.o. female - : 1955 - - Admit: 07/31/2024 - John Bruno MD - No chief complaint on file. Date: 08/13/24 Principal Problem: Triple vessel coronary artery disease Active Problems: Acute non-ST elevation myocardial infarction (NSTEMI) (CMS/HCC) (HCC) Tachy-sen syndrome (CMS/HCC) (HCC) Tobacco use disorder Peripheral vascular disease (HCC) Normocytic anemia Compression fracture of T10 vertebra (HCC) Cardiac arrest (HCC) Shock (CMS/HCC) (HCC) New onset of congestive heart failure (CMS/HCC) (HCC) Atrial fibrillation with RVR (CMS/HCC) (HCC) Prediabetes Coronary artery disease Diabetes mellitus (HCC) Nonrheumatic mitral valve regurgitation Melena AVM (arteriovenous malformation) Performed by: Dr. Gurjit Mariscal was present throughout the entire procedure. - CPT 07935 - Arterial line procedure Quirino Rodarte MD, FCCP, E-AEC ID Pulmonary Critical Care Faculty MSO # [id number] Pager # [phone] [facility] 2024-08-12 17:24:12 Associated Order(s): Procedural Sedation Post-Procedure Diagnose(s): Cardiac arrest; Melena Procedural Sedation Date/Time: 08/12/2024 5:24 PM Performed by: Dino Domínguez MD Authorized by: Dino Domínguez MD Consent: Consent obtained: Verbal Consent given by: Patient Risks, benefits, and alternatives were discussed: yes Indications: Procedure performed: Endoscopy Procedure necessitating sedation performed by: Physician performing sedation Intended level of sedation: Moderate Pre-sedation assessment: Time since last food or drink: 08/11 at 9 am ASA classification: class 3 - patient with severe systemic disease Mouth openin finger widths Mallampati score: III - soft palate, base of uvula visible Neck mobility: reduced Pre-sedation assessments completed and reviewed: airway patency, cardiovascular function, mental status, pain level and respiratory function History of difficult intubation: no Procedure details (see MAR for exact dosages): Sedation start time: 08/12/2024 11:00 AM Preoxygenation: Nasal cannula Sedation: Midazolam (ketamine) Analgesia: Fentanyl Intra-procedure monitoring: Blood pressure monitoring, frequent LOC assessments, smt technician, continuous pulse oximetry and frequent vital sign checks Intra-procedure events: hypotension Intra-procedure management: Supplemental oxygen Sedation end time: 08/12/2024 11:36 AM Total sedation time (minutes): 35 Post-procedure details: Recovery: Patient returned to pre-procedure baseline Estimated blood loss (see I/O flowsheets): no Procedure completion: Tolerated [facility] 2024-08-12 12:19:50 [facility] ENDOSCOPY LAB BRIEF POSTOP NOTE Please refer to EPIC procedure note (under "Chart review: Procedures tab") for full narrative Procedure: EGD Pre-Op Diagnosis: Melena Post-Op Diagnosis: AVM Endoscopist: Karyn Fish Hatchery Laborer/Fellow/Resident(s) : Obed Sedation: anesthesia EBL: minimal Specimens: {No Grafts and Implants: None Complications: No Disposition: to recovery in stable condition then back to Floor Brief findings: The esophagus appeared normal. Angioectasia in the antrum Multiple angioectasias in the 2nd part of the duodenum; bleeding was observed; placed 5 clips successfully; injected epinephrine to address bleeding; applied hemostatic powder and hemostatic spray to control bleeding; hemostasis achieved Recommendations: Result Text Introduction: A 69 yrs female patient presents for an EGD. Indication: Melena Post-Procedure Diagnosis: None Pre-sedation assessment: A history and physical has been performed, and patient medication allergies have been reviewed. The patient's tolerance of previous anesthesia has been reviewed. The risks and benefits of the procedure and the sedation options and risks were discussed with the patient. All questions were answered and informed consent obtained. Consent: The benefits, risks (perforation, bleeding, infection, pancreatitis, adverse effects to the medicine, and the possibility of missing polyps, tumors, cancers, and other lesions), alternatives to the procedure were discussed and informed consent was obtained from the patient. Medications See Anesthesia Record. Details of the Procedure The patient underwent monitored anesthesia care, which was administered by an anesthesia professional. The patient's ETCO2, heart rate, level of consciousness, oxygen, respirations, blood pressure and ECG were monitored throughout the procedure. The scope was introduced through the mouth and advanced to the second part of the duodenum. Retroflexion was performed in the cardia. The patient experienced no blood loss. The procedure was not difficult. The patient tolerated the procedure well. There were no apparent adverse events. Findings The esophagus appeared normal. Angioectasia in the antrum; no bleeding was observed Multiple angioectasias in the 2nd part of the duodenum; bleeding was observed; placed 5 clips successfully; injected 2 mL of epinephrine to address bleeding; applied hemostatic powder and hemostatic spray to control bleeding; hemostasis achieved. Multiple oozing AVM in duodenal sweep and second portion of duodenum Due to friability of mucosa there was increased bleeding after application of hemo clips Bleeding abated after completion of procedure Impression The esophagus appeared normal. Angioectasia in the antrum Multiple angioectasias in the 2nd part of the duodenum; bleeding was observed; placed 5 clips successfully; injected epinephrine to address bleeding; applied hemostatic powder and hemostatic spray to control bleeding; hemostasis achieved Specimens No specimens collected Recommendation Follow up with PCP Continue to trend HH Can advance to clears Continue IV PPI Can initiate octreotide TID Resumption of heparin for impella per cardiology and critical care team - This is a brief note used for immediate communication. See complete procedure note for full details in the 'chart review' section, under the 'procedures' tab. The note will generally be available within 24 hours. Please page GI fellow carton liner with questions or concerns. ---- Cosigned by Hasmukh Boss MD at 08/12/2024 4:19 PM CDT [facility] 2024-08-10 11:00:00 Advanced HF Surgery Impella Repositioning Note DATE OF PROCEDURE:?? 08/10/24 INDICATION FOR PROCEDURE: Impella position not optimal on TTE. Noted to be 7 cmdeep in LV/below the AV. Intermittent suction events. OPERATORS: 1. Pavan Mcguire MD 2. Paulo Harding MD PROCEDURES PERFORMED: Impella?repositioning under echocardiographic guidance. as a separate session.?CPT code 98223 DESCRIPTION OF THE PROCEDURE: Under MARQUES guidance the Impella position was noted to be about? 7cm inside LVOT at bedside. Using sterile precautions, the Impella pVAD was pulled back 1.5cm, to 5.1cm deep in LV, under continuous MARQUES guidance. Impella orientation towards LV apex, parallel to the LV septum, and away from the MV. No worsening of MR or new pericardial effusion was noted. Device was secured in place and new antibiotic coated tegaderms were placed. COMPLICATIONS: None TOTAL CONTRAST USED:?None CONCLUSIONS Successful repositioning of Impella pVAD under echocardiographic guidance at bedside RECOMMENDATIONS Continue to monitor Impella pVAD hemodynamics and position with limited bedside echo guidance. Dr. Kai Harding was present during the morales portions of the procedure. Pavan Mcguire MD. I, Dr Quinn, was present, participated, and supervised the procedure with Dr Pavan Mcguire on 08/10/24. I performedall critical/morales portions. I concur with the findings as outlined by . [facility] 2024-08-09 11:15:00 Associated Order(s): INSTRUMENTS SALES REPRESENTATIVE FEES PROCEDURE Images from the original note were not included. [facility] INSTRUMENTS SALES REPRESENTATIVE FIBEROPTIC ENDOSCOPIC EVALUATION OF SWALLOWING (FEES) Patient Name: Nichelle Hampton Today's Date: 08/09/2024 Time In: 1115 Time Out: 1135 Room: [place] [id number] FEES EVALUATION SUMMARY: Patient was observed with normal oropharyngeal phases of swallow per FEES today. Patient was given thin liquids (water), mildly (nectar) thickened liquids (water), pureed solids (applesauce), and regular solids (gage cracker) consistency trials all mixed with green food grade food coloring for contrast. Oral phase was characterized by reduced bolus formation secondary to posterior loss of thin liquids to pyriform sinus. Pharyngeal phase demonstrated incomplete white-out secondary to reduced BOT retraction and decreased pharyngeal constriction. No penetration/aspiration [PAS 1] of all consistencies assessed. Trace residue within the valleculae and pyriform sinuses noted, improved with additional dry swallows. RECOMMENDATIONS: Diet Recommendations: IDDSI level 7 (regular solids) with thin liquids Medications: One pill at a time, Whole with drink Swallow Precautions: Alternate liquids/solids, Upright to 90 degrees, Small bites/sips Supervision Recommended: Close supervision Oral care: Regular toothbrush Skilled ST for diet tolerance PROGNOSIS: Good PLAN: Frequency: 1-2 times per week GENERAL INFORMATION: Reason for Consult: Pt was referred for a FEES evaluation in the setting of concerns of dysphagia. Oxygenation: NC (4L) Behavior:Cooperative Level of Consciousness: Awake & alert Pain: Pain Assessment: DVPRS Diet Prior to this Evaluation: Temporary Means of Alternative Nutrition & Hydration and NPO Preferred Language: Italian PRE-ASSESSMENT: INSTRUMENTS SALES REPRESENTATIVE Pre-Assessment Current Method of Nutrition: NPO until cleared by Speech, Dobhoff Tube FEES PROCEDURE: The Patient was educated re: the purpose of the test and the procedure. The Patient was given the chance to ask questions re: the procedure and provided verbal assent. The [facility]allow[facility] was utilized at this evaluation. Pt completed instrumental assessment of the swallow while seated upright in bed. Time out was performed, and the flexible endoscope was passed through the right naris, through the velopharyngeal port, and into the oropharynx where visualization of the hypopharynx was obtained. Laryngeal anatomy was c/b pharyngeal swelling. EXAMINATION METHOD: Examination Method Previous MBS or FEES: No Time out protocol completed: Yes Respiratory Status: Room air ANATOMICAL OVERVIEW Anatomical Overview Views of The Larynx and Vocal Folds Included: Entire laryngeal anatomy Secretions: 0-Normal amount of secretions, mucosa moist, but no saliva flowing Velopharyngeal Closure: Within Functional Limits Epiglottis: Swelling Valleculae: Within Functional Limits Arytenoids: Within Functional Limits Posterior Pharyngeal Wall: Within Functional Limits True Vocal Cords at Rest: Symmetrical True Vocal Cords During Voicing: Symmetrical FEES BOLUS: Bolus 1: Bolus 1 Texture: 0 Thin Method of Feeding: Spoon, Straw Bolus Amount: 5mL, 10mL, ungraded sip Oral Phase Observations: Reduced bolus formation, Posterior loss Swallow Initiated: Pyriform sinus Laura-Valleculae Residue: I- None 0% No Residue [place]-Pyriform Sinus Residue: I- None 0% No Residue Penetration-Aspiration Scale: 1: Material does not enter airway Bolus 2: Bolus 2 Texture: 2 Mildly Thick Method of Feeding: Straw Bolus Amount: ungraded sip Swallow Initiated: Base of tongue Laura-Valleculae Residue: I- None 0% No Residue Laura-Pyriform Sinus Residue: I- None 0% No Residue Penetration-Aspiration Scale: 1: Material does not enter airway Bolus 3: Bolus 3 Texture: 4 Pureed Method of Feeding: Spoon Bolus Amount: 5mL, 10mL Swallow Initiated: Base of tongue Laura-Valleculae Residue: II- Trace 1-5% Trace Coating of The Mucosa [place]-Pyriform Sinus Residue: II- Trace 1-5% Trace Coating of The Mucosa Penetration-Aspiration Scale: 1: Material does not enter airway Bolus 4: Bolus 4 Texture: 7 Regular Bolus Amount: gage cracker Oral Phase Observations: Posterior loss, Reduced bolus formation Swallow Initiated: Valleculae Laura-Valleculae Residue: I- None 0% No Residue [place]-Pyriform Sinus Residue: I- None 0% No Residue Penetration-Aspiration Scale: 1: Material does not enter airway OUTCOME MEASURES: International Dysphagia Diet Standardization Initiative - IDDSI Solids - 7 - Regular Liquids - 0 - Thin IDDSI Level - 8 FUNCTIONAL ORAL INTAKE SCALE (FOIS), MEHRDAD ET AL., 2005: 1- Nothing by mouth DYSPHAGIA OUTCOME AND SEVERITY SCALE (HUDSON), O'MARTINA ET AL., 1999: 7 = Normal in all situations. Normal diet. No strategies or extra time needed. EDUCATION: Education Documentation Other Speech-Language/Pathology Education Topics, taught by EDITH Davis at 08/09/2024 11:15 AM. Learner: Patient Readiness: Acceptance Method: Explanation Response: Verbalizes Understanding Dietary Recommendations, taught by EDITH Davis at 08/09/2024 11:15 AM. Learner: Patient Readiness: Acceptance Method: Explanation Response: Verbalizes Understanding Swallowing Strategies, taught by EDITH Davis at 08/09/2024 11:15 AM. Learner: Patient Readiness: Acceptance Method: Explanation Response: Verbalizes Understanding Speech-Language/Pathology Treatment Plan, taught by EDITH Davis at 08/09/2024 11:15 AM. Learner: Patient Readiness: Acceptance Method: Explanation Response: Verbalizes Understanding Results of Exam, taught by EDITH Davis at 08/09/2024 11:15 AM. Learner: Patient Readiness: Acceptance Method: Explanation Response: Verbalizes Understanding Education Comments No comments found. If this is the last documented treatment, then it will signify discharge from acute care prior to discharge from the therapy service and will serve as the discharge summary. Therapy discharge recommendations are made by determining the patient's prior level of function, assessing current function level and establishing rehab potential. The overall discharge plan may be affected by input from Physicians, Care Coordination, medical condition/status, family support and insurance benefits. EDITH Davis [facility] 2024-08-07 16:07:52 ARTERIAL LINE PROCEDURE NOTE Procedure Performed: right radial arterial line placement Ultrasound Guidance: yes Primary Indication: Cardiogenic shock Informed Consent & Time Out: Were obtained and performed as appropriate. Barrier Precautions & Sterile Technique: As documented in the Pre-Procedure Check List. Documentation of Procedure: [place] sterile precautions including surgical cap, mask with protective eyewear, full gown and sterile gloves throughout the procedure. The patient s Site: right radial artery area was prepped and draped in the usual sterile fashion. 1% Lidocaine was used to anesthetize the surrounding skin area. Under ultrasound guidance, the right radial artery was identified and found to be thick walled, pulsatile and non compressible. A needle was introduced with return of bright, pulsatile blood. Once blood return was observed, a guidewire was introduced through the needle, and the needle was removed. Arterial placement of the guidewire was confirmed with longitudinal and transverse ultrasound images. Using Seldinger technique the catheter was introduced into the artery and the guidewire was removed. Appropriate placement of the catheter was determined by waveform on cardiac monitoring. The catheter was then sutured in place to the skin and a sterile dressing applied. Local Anesthesia: None Number of Kits Used: 1 Sterile Dressings: Applied Estimated Blood Loss: Minimal Specimens Collected: Non-applicable Complications: None Supervising Physician: Dr. Marii Mejia Cosigned by Marii Mejia MD at 08/08/2024 9:38 AM CDT Associated attestation - Marii Mejia MD - 08/08/2024 9:38 AM CDT HVI5.517/HVI5.517 - Nichelle Hampton - 69 y.o. female - : 1955 - - Admit: 07/31/2024 - Leila Lozano NP - No chief complaint on file. Date: 08/08/24 Principal Problem: Triple vessel coronary artery disease Active Problems: Acute non-ST elevation myocardial infarction (NSTEMI) (CMS/HCC) (HCC) Tachy-sen syndrome (CMS/HCC) (HCC) Tobacco use disorder Peripheral vascular disease (HCC) Normocytic anemia Compression fracture of T10 vertebra (HCC) Cardiac arrest (HCC) Shock (CMS/HCC) (HCC) New onset of congestive heart failure (CMS/HCC) (HCC) Atrial fibrillation with RVR (CMS/HCC) (HCC) Prediabetes Coronary artery disease Diabetes mellitus (HCC) I was present throughout the entire procedure. I was present at morales portions of the procedure. Performed under ultrasound guidance with a recorded ultrasound image - CPT 83280 - Arterial line procedure (U/S guidance included) Marii Mejia MD Department of Pulmonary, Critical Care and Sleep Pager #: [phone] MSO: [id number] [facility] 2024-08-06 15:05:22 Airway: TM Distance - >3 FB Cardiovascular: Rate: normal Pulmonary: pulmonary exam normal Anesthesia and Sedation History: Previous anesthesia or sedation - Yes History of difficult intubation - No History of anesthesia/sedation complications - No Airway Assessment: History of cervical/neck problems, craniofacial abnormality, head/neck surgery or deformity - No Increased risk of airway obstruction, sleep apnea, obesity >100% ideal body weight - No Mallampati class - III. ASA 3 Plan: Sedation plan - Monitor per policy and Recovery per policy Goal of sedation - Sedation Level of procedural sedation - Moderate sedation Cosigned by Craig Nath MD at 08/07/2024 9:42 AM CDT Internal Medicine Physician [facility] 2024-08-04 09:39:03 Images from the original note were not included. [facility] Midline Insertion Procedure Date: 08/04/2024 Time: 0920 am Informed Consent: Signed by patient Time Out: Patient identification verified: with , Correct procedure confirmed: with , Correct site confirmed: with , and Patient ID, correct procedure, and site: with: Holly Nascimento RN Performed by: Chay Scott RN BSN Referred by: Jacobo Gaston NP Supervised by: Assisted by: Preparation and Technique: Ultrasound localization, Modified Seldinger technique (MST), Real-time visualization of needle entry, Number of attempts 1, Saline lock, USG image of real-time vessel entry placed in chart, and OTN tearaway introducer needle Sterile preparation: 2% chlorhexidine, solution allowed to passively dry, full drapes, gown, gloves, and mask used, and maximum barrier technique Local anesthesia: 1% xylocaine without epinephrine 2 ml Catheter size: 4 Fr Catheter length: 14 cm Vein depth: 0.5 - 1.0 cm External catheter length: 0 cm Mid arm circumference: 25 cm Length antecubital to mid arm: 10 cm Patency: positive blood return, blood aspirated easily, and flushed easily Dressing applied: CHG device dressing Stylet: intact Lot Numbers: Insertion Kit: REF [id number] LOT [id number] Expiration Date: 07/20/2024 Brand: Bard Line Location: Basilic: right Complications: None Procedure Tolerated: Well Procedure Outcome: Successful [facility] 2024-07-30 16:41:44 Cardioversion procedure note : Proceduralist : Rafal Davidson MD Indication : Paroxysmal atrial fibrillation Procedure performed: DCCV Time out: was performed prior to procedure to review correct patient using two patient identifiers, correct procedure and correct site. Procedure details : After informed written and oral consent, the patient was brought to cardiac catheterization suite in a fasting state. A transesophageal echocardiogram was obtained to rule out left atrial appendage clot. Cardioversion pads were applied in an hilton-posterior fashion. Once the patient was completely sedated, he was cardioverted using a synchronized 200 J shock. The patient converted to sinus rhythm briefly however over the next 15 to 20 minutes she kept on going back into atrial fibrillation and alternated between sinus rhythm and atrial fibrillation. No further attempts were made at this time. Complications: None readily apparent. Estimated Blood Loss: 0 ml Recommendations: -Contnue parenteral anticoagulation therapy for now -Continue rate controlling agents -A-fib likely due to underlying ischemic heart disease Rafal Davidson MD T [facility] 2024-07-30 12:37:26 Severe multivessel CAC including Left main and proximal RCA Normal filling pressures Transfer to [facility] for CABG evaluation vs high risk PCI T [facility] Notes Date/Time Note Provider Source Referral ID Status Reason Start Date Expiration Date Visits Requested Visits Authorized [id number] Pending Review Specialty Services Required 08/06/2024 02/02/2025 36 36 [facility]2025-04-02 18:48:09* Auth/Cert (Routine) Specialty Diagnoses / Procedures Referred By Contac t Referred To Contact Diagnoses Triple vessel coronary artery disease Elevated troponin Procedures Medicare Part A only John Bruno MD [address] [address] Phone: tel: fax: [facility] ([facility]) [address] [place] [address] Phone: tel: Referral ID Status Reason Start Date Expiration Date Visits Re quested Visits Authorized [id number] 1 1 [id number] 18:48:09 [id number] 18:48:09* Audit-C Score Answer Date of Assessment Author -1 07/31/2024 4:22 AM CDT Kasey Gerard RN * Intimate Partner Violence Question Answer Date of Assessment Author Within the last year, have y ou been humiliated or emotionally abused in other ways by your partner or ex-partner? No 07/31/2024 4:22 AM CDT Kasey Case RN Within the last year, have y ou been afraid of your partner or ex-partner? No 07/31/2024 4:22 AM CDT Kasey Gerard RN Within the last year, have y ou been raped or forced to have any kind of sexual activity by your partner or ex-partner? No 07/31/2024 4:22 AM Kasey Duckworth RN Within the last year, have y ou been kicked, hit, slapped, or otherwise physically hurt by your partner or ex-partner? No 07/31/2024 4:22 AM CDT Kasey Gerard RN * * Calculated C-SSRS Risk Score (Lifetime/Recent) Answer Date of Assessment Author No Risk Indicated 07/31/2024 4:23 AM CDT Hamilton Gerard RN * [place] Suicide Severity Rating Scale (Screener/Recent Self-Report) Question Answer Date of Assessment Author 1. Wish to be (Past 1 Month) No 025 4:23 AM Kasey Carrero RN 2. Non-Specific Active Suici silver Thoughts (Past 1 Month) No 07/31/2024 4:23 AM Kasey Carrero RN 6. Suicidal Behavior (Lifetime) No 4:23 AM Kasey Car[facility]ro RN [facility] 18:48:09* GILDA Vincent - 08/22/2024 5:03 PM CDT HF Surgery Progress Note PMH: 69 yo female w/ PMH including HTN, DM, CAD and tobacco abuse who was transferred to [facility] for revascularization after LHC at [facility] revealed multivessel disease with severe L main disease. Other relevant events at OSH included cellulitis 2/2 to spider bite and hypoxic respiratory failure requiring bipap, afib RVR and possible new diagnosis of CHF (EF 45-50%). 08/06 High-risk successful LM-LAD PCI with SARAH x4 , complicated by PEA, emergent vaECMO, due to in-stent thrombosis 08/06 Impella 5.5 placement axillary R and vaECMO removal w/ art repair 08/10 YAQUELIN (1x MitraClip), reduction MR 3+ to 2+ 08/12 GI placed 5 clips for multiple angioectasias in the 2nd part of the duodenum (bleeding was observed). 08/15 impella decannulation Subjective: Pod#7 after Impella decannnulation. No acute overnight events. Objective Last Recorded Vitals Blood pressure (!) 125/56, pulse 65, temperature 36.4 ?C (97.6 ?F), temperature source Oral, resp. rate 18, height 1.6 m (5' 2.99"), weight 51.9 kg (114 lb 6.7 oz), SpO2 98%. Pertinent Labs : Lab ResultsComponent Value Date WBC 10.31 08/22/2024 Hgb 10.0 (L) 08/22/2024 Hct 32.6 (L) 08/22/2024 Plt Count 635 (H) 08/22/2024 Lab ResultsComponent Value Date Sodium Lvl 141 08/22/2024 Potassium Lvl 4.6 (H) 08/22/2024 Chloride Lvl 103 08/22/2024 CO2 Lvl 26.7 08/22/2024 BUN 31 (H) 08/22/2024 Creatinine Lvl 1.12 (H) 08/22/2024 Glucose Lvl 146 (H) 08/22/2024 POC Glu 272 (H) 08/22/2024 Lab ResultsComponent Value Date Calcium Lvl 9.0 08/22/2024 Magnesium 2.25 08/22/2024 Phosphorus Lvl 3.7 08/22/2024 Lab ResultsComponent Value Date AST 29 08/20/2024 ALT 30 08/20/2024 Alkaline Phosphatase 142 (H) 08/20/2024 No results found for: "PTT", "PT", "INR" General Appearance: Well appearing, well developedHEENT: Normocephalic atraumatic. Lungs: Unlabored respirations Heart: Regular rate and regular rhythm Abdomen: soft, non-tender, non-distended Musculoskeletal: No obvious deformity. Moves all 4 extremities. Extremities: No BLE edema. Neurologic: Alert/appropriate, normal strength, conversant Psych: Mood congruent affect, responds appropriately to questions. Incisions: Right axillary/chest wall staple sites (x2), healing well. Single suture in place, healing well. Assessment & Plan Triple vessel coronary artery disease Acute non-ST elevation myocardial infarction (NSTEMI) (CMS/HCC) ([facility]) Tachy-sen syndrome (CMS/HCC) (HCC) Tobacco use disorder Peripheral vascular disease (HCC) Normocytic anemia Compression fracture of T10 vertebra (HCC) New onset of congestive heart failure (CMS/HCC) (HCC) Atrial fibrillation with RVR (CMS/HCC) (HCC) Prediabetes Diabetes mellitus (HCC) Coronary artery disease Cardiac arrest Shock (CMS/HCC) (HCC) Nonrheumatic mitral valve regurgitation Melena#Multivessel CAD with left main dx. #acute hypoxemic respiratory failure #Pulmonary edema #preop pulmonary edema #CHF #cellulitis #afib RVR #dm2 #htn #tobacco use AVM (arteriovenous malformation) Atypical atrial flutter (CMS/HCC) (HCC) Chronic systolic heart failure (CMS/HCC) (HCC) DAKOTA (acute kidney injury) (HCC) Severe malnutrition (CMS/HCC) ([facility]) A/P:- Former Impella site vicki in place x 3 weeks. - Suture to remain in place at this time. - One dose zofran please. - Continue PPI and monitor for GIB. - Rest per cardio GILDA Vincent08/22/24 * Tino Pickens RN - 08/22/2024 1:30 PM CDT MOT Received Date and Time: 08/22/2024 1315 Received From: Bronwyn [phone] Facility: Name: [facility] Address: [facility] [address] Room Number: 515 Nursing Unit for Report: [phone] Accepting MD: Dr. Del Koo Accepting Hotel Assistant General Manager: Dr. David Oliveros Referral Date: Referral Time: 1230 Patient's family to provide transportation. Eula Oliver, (azar) [phone]. She will be here when she get off work at 5pm. CM provided her the nurses station number so she can call when she is close by. MOT completed and placed on chart/given to primary nurse. Imaging CD sent with patient as requested. Please call After-Hours SW for discharge issues after 1700. * Shane Devlin PharmD - 08/22/2024 11:39 AM CDT Patient Education: Medication Medication(s) being addressed: Ticagrelor, Aspirin Person instructed: Patient Barriers to learning: None evident. Method of instruction: Explanation: Pharmacist Educational handouts provided: Patient Eduation Material and / or Medication Guide- Lexicomp Outcome of instructions: Verbalizes understanding. * Shane Devlin PharmD - 08/22/2024 11:35 AM CDT Anticoagulant Patient Education I have educated on the following medication(s): Apixaban Education regarding: Indication, Administration, Dosage and frequency, Generic and brand names, Bleeding risk, and Side effects Person(s) Educated: Patient Barrier(s) to Learning: None evident Motivation Level: Responsive or eager Method of Instruction: Explanation and Printed materials: apixaban medication handout Is an home theatre technician required? No. Language: N/A Outcome of instruction(s): Verbalizes understanding Shane Devlin PharmD * Sharyn Naranjo MD - 08/22/2024 10:40 AM CDT MAXIME WISEMAN Progress Note Date: 08/22/2024 Chief Complaint: No chief complaint on file. History of Present Illness: Nichelle Hampton is a 69 y.o. female with past medical history of hypertension, diabetes mellitus (on no meds), reported history of coronary artery disease and tobacco use, who was transferred from [facility] after LHC revealed severe left main disease and multivessel disease. She was originally admitted there for hand cellulitis after a spider bite, but during that hospital stay she had hypoxic respiratory failure requiring BiPAP, NSTEMI, possibly newly diagnosed CHF (EF 45-50%), and Afib w/ RVR. She underwent a MARQUES w/ cardioversion. RHC and LHC on 07/31/23 showed normal filling pressures, 80% mid to distal LM lesion extending into the ostium of LAD, 60-70% mid LAD, diffuse LCx and OM disease, and 70-80% proximal to mid RCA disease. She was transferred to [facility] for revascularizaton. On 08/06 she underwent PCI to LM-LAD with SARAH x4 complicated by cardiac arrest x2 where she was cannulated with VA ECMO. Found to have acute stent thrombosis s/p PTCA. 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 S/p ECMO decannulation 08/06. S/p mitraclip 08/10. Patient deemed not a candidate for advanced therapies due to extensive PAD. Impella and pressor support were weaned. Impella was decannulated 08/15. Patient transferred to IMU 08/16. Hospital course complicated by GI bleed. GI consulted and pt underwent an EGD 08/12 and found to have bleeding AVMs s/p 5 clips, epi injection, and hemostatic powder/spray with hemostasis achieved. SAGE drain removed by HF Surgery 08/17/24. Low dose losartan was initiated for GDMT optimization. Subjective:No acute events overnight BP better 120s/50-60s Objective: Physical Exam:BP 128/60 | Pulse 64 | Temp 36.6 ?C (97.9 ?F) (Oral) | Resp 18 | Ht 1.6 m (5' 2.99") | Wt 51.9 kg (114 lb 6.7 oz) | SpO2 95% | BMI 20.27 kg/m? Intake/Output Summary (Last 24 hours) at 08/22/2024 1041Last data filed at 08/22/2024 0800 Gross per 24 hour Intake 774 ml Output 1550 ml Net -776 ml General: alert and oriented, not in distress Head/mouth: oral mucosa moist, normal conjuntiva, normal eye movements Neck; supple, normal thyroid, no JVD Chest: no lesions, normal excursion Lungs: Clear to auscultation bilateral, no rales, no wheezes Heart: RHYTHM: RRR, no gallop, no rub, no murmur Abdomen: soft, non tender, non distended, BS+ Extremities: no Lower extremity edema, symmetric, Laboratory Data: Renal function better Normal electrolytes WBC stable, Hb 9.5, plat 592 Assessment/Plan: Patient Active Problem ListDiagnosis New onset of congestive heart failure (CMS/HCC) ([facility]) Cellulitis Atrial fibrillation with RVR ([facility]/HCC) ([facility]) Prediabetes Elevated troponin Hypertension Tobacco use Coronary artery disease Hyponatremia Hyperglycemia Pulmonary edema cardiac cause ([facility]/HCC) ([facility]) Triple vessel coronary artery disease Acute non-ST elevation myocardial infarction (NSTEMI) ([facility]) ([facility]) Tachy-sen syndrome ([facility]/HCC) ([facility]) Tobacco use disorder Peripheral vascular disease ([facility]) Normocytic anemia Diabetes mellitus ([facility]) Compression fracture of T10 vertebra ([facility]) Cardiac arrest Shock ([facility]/HCC) ([facility]) Nonrheumatic mitral valve regurgitation Melena AVM (arteriovenous malformation) Atypical atrial flutter ([facility]/HCC) ([facility]) Chronic systolic heart failure ([facility]) ([facility] DAKOTA (acute kidney injury) ([facility]) Severe malnutrition ([facility]) ([facility]) Plan:--continue amiodarone, apixaban for a fib-, per ICU notes, plan to continue with triple therapy for one month (Aspirin last date 08/27/24) followed by apixaban and brillinta for 1 year --continue DAPT, statin, no BB due to bradycardia, --GDMT: on low dose losartan, not on diuretics,re- start SGLT-2 --continue PT/OT per PT notes patient unable to walk due to bilateral knee pain. --discharge pending placement Active medical conditions, plan and recommendations were discussed in length with the patient. All the questions were answered. Complex Medical Decision Making in this encounter I spent 35 minutes preparing to see the patient including review of tests, obtaining history from the patient, performing exam, counseling and educating the patient, reconciling medication and reviewing adherence and interactions, ordering meds and tests and documenting clinical information in the electronic record Sharyn Naranjo MD * Elizabet Gomez, PTAS - 08/21/2024 3:45 PM CDT Treatment Session Note Patient Name: Nichelle Hampton Today's Date: 08/21/2024 Assessment & Plan Assessment: Pt progressed ambulation distances in hallway using RW requiring CGA min-A. No dizziness, SOB or LOB noted. Pt continues to c/o significant Leg pain, today on the LLE, which is limiting her progression. Pt will continue to benefit from skilled PT to maximize independence with functional mobility, increase activity tolerance, and progress towards goals, pt is at fall risk. Prognosis: Good Barriers to Discharge: Complicated medical history Evaluation/Treatment Tolerance: Patient limited by pain Medical Staff Made Aware: Yes Strengths: Coping skills, Ability to acquire knowledge Plan: Treatment Plan/Goals Established with Patient/Caregiver: Yes Treatment/Interventions: Balance training, Bed mobility training, Functional activities, Gait training, Patient education, Transfer training PT Plan: Skilled PT Subjective " This knee" Precautions: UE Weight Bearing Status: FWB LE Weight Bearing Status: FWB Medical Precautions: TLSO OOB; spinal Braces Applied: TLSO Objective General Visit Information: -Cleared with nurse for PT -Pt found on recliner -managed lines -VSS - Instructed pt to stand up with use of RW requiring CGA - Pt reports no dizziness or light headedness - Began hallway ambulation, progressed distance from yesterday - Pt started complaining of LLE pain specifically on her thigh, pt had to sit down to take a break. VSS -Pt needed MOD A to stand up from chair - Once pt felt ready, began ambulation. Pt took a second break prior to entering the room. Leg pain increased but she was able to manage getting back to the room. - Pt used the toilet, required MOD A and CGA to sit down and up from toilet - Returned pt to the recliner. All needs met. -Updated nurse about pt. PT Last Visit PT Received On: 08/21/24 Activity Tolerance:Endurance: Tolerates 10 - 20 min exercise with multiple rests Sitting Balance: Sits without support for more than 30 sec Early Mobility/Exercise Safety Screen: Proceed with mobilization - No exclusion criteria met CognitionOverall Cognitive Status: Within Functional Limits Behavior/Cognition: Alert, Cooperative, Pleasant mood TreatmentTherapeutic activity: Therapeutic Activity Therapeutic Activity Time Entry: 25 Therapeutic Activity 1: Transfers Therapeutic Activity 2: Toileting Therapeutic Activity 3: EDU Therapeutic Activity 4: functional mobility Transfers: Transfers 1:Technique 1: Via walking Level of Assistance 1: Supervision/touching assistance Transfer To/From: Recliner, Ybh-wb-Sqyfc/Yjauz-qj-Axf Assistive Devices And Adaptive Equipments: Walker, front-wheeled Transfers 2:Technique 2: Via walking Level of Assistance 2: Partial/Mod assistance Transfer To/From: Tal-ka-Icdlh/Cqaab-ev-Tqu, Chair Assistive Devices And Adaptive Equipments: Walker, front-wheeled Transfers 3:Technique 3: Via walking Level of Assistance 3: Partial/Mod assistance Transfer To/From: Wug-as-Ucnjx/Xmuaq-lq-Vuu, Toilet Assistive Devices And Adaptive Equipments: Walker, front-wheeled Transfers 4:Technique 4: Via walking Level of Assistance 4: Partial/Mod assistance Transfer To/From: Toilet, Dqd-dy-Yhphz/Nkrog-ei-Tzb Assistive Devices And Adaptive Equipments: Walker, front-wheeled Gait training: Gait Training Time Entry: 14 Gait Training Activity 1:Distance (enter in feet): 250ft +120ft + 20ft Gait Training Activity 1: Indoor surface Assistive Devices And Adaptive Equipments: Walker, front-wheeled Level of Assistance 1: Supervision/touching assistance, Partial/Mod assistance Gait Training Activity 1 Comment: Pt reported knee pain towards the end of ambulation. pt took a break and needed mod assistance to get up from the chair. pt took a seocnd break prior to entering the room. AM-PAC Basic Mobility:AM-PAC Basic Mobility Inpatient Turning in bed without bedrails: A Little Lying on back to sitting on edge of flat bed: A Little Bed to chair: A Little Standing up from chair: A Little Walk in room: A Little Climbing 3-5 stairs: A Little Mobility Inpatient Raw Score: 18 JH-HLM Goal: 6 Mobility: Highest Level of Mobility Performed (JH-HLM)-HLM Goal: 6 Modified Davidson Patient Education: Education Documentation No documentation found. Education Comments No comments found. Goals:Encounter Goals Encounter Goals (Active) Patient will progress bed mobility to GG Code 6 - Independent, using without adaptive aid, by discharge. Start: 08/10/24 Expected End: 09/21/24 The patient will progress transfers to GG Code 6 - Independent using no device vs LRAD, by discharge. Start: 08/10/24 Expected End: 09/21/24 The patient will ambulate 150+ feet with no device vs LRAD and GG Code 6 - Independent, by discharge. Start: 08/10/24 Expected End: 09/21/24 Supervising Digital Coordinator: Katherine Tan PTA Update/change in plan of care was communicated with Digital Coordinator. Treatment Note: If this is the last documented treatment, then it will signify discharge from acute care prior to discharge from the therapy service and will serve as the discharge summary. Elizabet Gomez PTAS Cosigned by Katherine Tan PTA at 08/22/2024 4:27 PM CDT * Bronwyn Rivera NP - 08/21/2024 1:42 PM CDT [facility] DANCE TEACHER Note Date: 08/21/2024 HPI/Hospital course Nichelle Hampton is a 69 y.o. female with past medical history of hypertension, diabetes mellitus (on no meds), reported history of coronary artery disease and tobacco use, who was transferred from [facility] after LHC revealed severe left main disease and multivessel disease. She was originally admitted there for hand cellulitis after a spider bite, but during that hospital stay she had hypoxic respiratory failure requiring BiPAP, NSTEMI, possibly newly diagnosed CHF (EF 45-50%), and Afib w/ RVR. She underwent a MARQUES w/ cardioversion. RHC and LHC on 07/31/23 showed normal filling pressures, 80% mid to distal LM lesion extending into the ostium of LAD, 60-70% mid LAD, diffuse LCx and OM disease, and 70-80% proximal to mid RCA disease. She was transferred to [facility] for revascularizaton. On 08/06 she underwent PCI to LM-LAD with SARAH x4 complicated by cardiac arrest x2 where she was cannulated with VA ECMO. Found to have acute stent thrombosis s/p PTCA. 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 S/p ECMO decannulation 08/06. S/p mitraclip 08/10. Patient deemed not a candidate for advanced therapies due to extensive PAD. Impella and pressor support were weaned. Impella was decannulated 08/15. Patient transferred to IMU 08/16. Hospital course complicated by GI bleed. GI consulted and pt underwent an EGD 08/12 and found to have bleeding AVMs s/p 5 clips, epi injection, and hemostatic powder/spray with hemostasis achieved. SAGE drain removed by HF Surgery 08/17/24. Low dose losartan was initiated for GDMT optimization. Subjective: No acute events overnight. Objective: Physical Exam: BP (!) 112/51 (BP Location: Left arm, Patient Position: Sitting) | Pulse 66 | Temp 36.9 ?C (98.4 ?F) (Oral) | Resp 18 | Ht 1.6 m (5' 2.99") | Wt 51.6 kg (113 lb 12.1 oz) | SpO2 95% | BMI 20.16 kg/m? Intake/Output Summary (Last 24 hours) at 08/21/2024 1342 Last data filed at 08/21/2024 1300 Gross per 24 hour Intake 713 ml Output 950 ml Net -237 ml General: Resting comfortably, no obvious distress Head/mouth: oral mucosa moist, normal conjuntiva, normal eye movements Neuro: Alert and oriented x4, no focal deficits Neck; supple, JVD None Lungs: Clear to auscultation bilateral, no rales, no wheezes Heart: RHYTHM: RRR, no gallop, no rub, MURMUR GRADE AND LOCATION: none Abdomen: soft, non tender, non distended, BS+ Extremities: no Lower extremity edema, symmetric, normal distal pulses Skin: no rashes. R previous Impella site covered with gauze dressing-c/d/I, no signs bleeding or infection present Assessment & PlanCardiac arrest Shock (CMS/HCC) (HCC) Nonrheumatic mitral valve regurgitation - S/p PCI x4 to LM-LAD c/b PEA arrest with 15 minutes of CPR and ECMO cannulation, finding of acute stent thrombosis s/p PTCA > with subsequent Impella 5.5 placement and decannulation of ECMO on 08/06/2024 - Vasopressors weaned off - Moderate MR noted on TTE and at bedside with large V waves on wedge waveform - S/p YAQUELIN on 08/10/24 - S/p impella decannulation 08/15 - s/p SAGE drain removal by HF Surgery 08/17/24 PLAN: - Patient not a candidate for advanced therapies given extensive PAD. Chronic systolic heart failure ([facility]) ([facility]) - MARQUES 08/15/24: EF 37%, no pericardial effusion - Repeat TTE 08/19: EF 50-54%, hypokinesis of mid posterior wall and basal to mid lateral wall, G2DD, well positioned mitraclip with mild residual MR, trace TR, trace pericardial effusion. PLAN: - Unable to start BB for now due to bradycardia - GDMT: Continue losartan 12.5 mg daily. Hold dapagliflozin. No need for MRA as repeat EF 50-54%. - Diuretic: cont to hold diuresis, pt appears euvolemic Triple vessel coronary artery disease Coronary artery disease Acute non-ST elevation myocardial infarction (NSTEMI) ([facility]) ([facility]) - S/p PCI x4 to LM-LAD c/b PEA arrest with 15 minutes of CPR and ECMO cannulation, > with subsequent Impella 5.5 placement and decannulation of ECMO on 08/06/2024. PLAN: - Continue atorvastatin 40 mg PO daily - Antiplatelet: continue aspirin 81 mg PO daily; Brilinta 90 mg BID - Triple therapy for one month (aspirin end date 09/03/24) followed by Eliquis and Brilinta for 1 year. Atrial fibrillation with RVR ([facility]) ([facility]) Atypical atrial flutter ([facility]) ([facility]) - Continue Eliquis 5 mg Q12H - Continue amiodarone 200 mg daily Peripheral vascular disease ([facility]) - US lower extremity arterial doppler 07/31/24: Bilateral SFA progressive occlusions with reconstitution of flow appear chronic, Right distal GAS AND OIL CHECKER occlusion, also likely chronic - 9 [place] Sheath removed 08/07/24 AVM (arteriovenous malformation) Melena - continue Protonix 40 mg daily - S/p EGD 08/12 and patient found to have bleeding AVMs s/p 5 clips, epi injection, and hemostatic powder/spray with hemostasis achieved - GI signed off. - Continue to monitor and trend labs - Transfuse blood products as needed Compression fracture of T10 vertebra (HCC) - Incidental finding noted on admission CT 07/31/24 - Ortho-Spine consulted: no surgical intervention at this time Diabetes mellitus (HCC) - Continue sliding scale insulin DAKOTA (acute kidney injury) (HCC) - Cr stable today - Hold diuresis as above - CTM and trend labs Code Status: Full Code Quality Bundle PT/OT: Following Blood glucose (< 180 for the past 12h): Uncontrolled Line necessity: PIVs only VTE ppx: Continue oral anticoagulation PUD ppx: pantoprazole - 40 MG LBM: Last BM Date: 08/20/24 (08/20/241999) Dispo: IMU. Plan for dc to IPR tomorrow. Bronwyn Rivera NPAdvanced Cardiopulmonary Therapies and Transplantation (ACTAT) Patient rounded [facility] and [facility]. CALL [phone] or [phone] to reach [facility] OR Via Secure Chat. * George Carias RN - 08/21/2024 12:44 PM CDT ALEJO BARRAGAN met the patient at bedside to discuss her physical ability pre-hospitalization. The patient reports she was independent prior to hospitalization and declined using assistive devices. The patient is interested in IPR, but reports having Medicare Part A only. The patient is open to submit referrals to see if a facility is able to accept her. She also states to reach out to her daughter, Eula, to discuss referral and select a facility closer to their home location, [place]. ALEJO BARRAGAN sent referrals to [facility] (liaison [phone]) and [facility]. Both facilities reported they are open to accept the patient with Part A only. Information is discussed with the patient's daughter, Eula [phone]. Eula confirms she would like to proceed with [facility]. The liaison is provided an update and reports they will be able to accept the patient on 08/22/2024. Information is provided to covering DANCE TEACHER and she verbalizes understanding. * Bronwyn Meneses OT - 08/21/2024 9:52 AM CDT Treatment Session Note Patient Name: Nichelle Hampton Today's Date: 08/21/2024 Preferred Language: Italian Assessment & Plan Assessment: Pt making progress toward stated goals. Pt motivated to participate in therapy session. Pt demo functional transfer and bed mobility Yaneli-CGA. Pt receptive to education on adaptive equipment, spinal precautions, and use of TLSO. Pt engaged in toileting with SBA demo managing own pericare while seated. Pt continues to benefit from acute and post acute therapy services for return to PLOF. Precautions: UE Weight Bearing Status: FWB LE Weight Bearing Status: FWB Medical Precautions: TLSO OOB, spinal precautions Braces Applied: TLSO Plan: Continue OT POC Subjective I had a hard time yesterday Pain: No pain reported Objective Vital Signs: VSS throughout session. General Visit Information: Family/Caregiver Present: No Self Care (ADL):Self Care/Home Management (ADLs) Time Entry: 12 Toileting Assistance: Supervision/touching assistance GretaRTawana Modi cleared pt for session. Pt engaged in bed mobility with cueing for log roll technique and CGA. Pt sat EOB to acclimate to change in position. Pt engaged in donning TLSO EOB with assist, education on positioning and use of straps. Pt engaged in transfer from bed to chair with use of RW CGA, cues for UB use. Pt engaged in seated rest break. Pt engaged in functional mobility to bathroom with use of RW, CGA and performed toilet transfer with Yaneli. Pt engaged in seated pericare with set up for items required and demo clothing mgmt without assist while standing. Pt returned to room and engaged in functional mobility to door and window 2x for increased activity tolerance for engagement in ADL/IADL at prior level of function. Post-Therapy Checklist: Pt sitting up in chair, Call light within reach, All lines/lead intact, Vital signs stable, and RN informed/aware Self-Care:Self Care/Home Management (ADLs) Time Entry: 12 Toileting Assistance: Supervision/touching assistance Bed Mobility:Bed Mobility Bed Mobility: Yes Bed Mobility 1 Level of Assistance 1: Supervision/touching assistance Bed Mobility Comments 1: CGA, cues for log roll, continue to review Bed Mobility To/From: Supine to sit on EOB Transfers:Transfers Transfer: Yes Transfer 1 Technique 1: Stand step Level of Assistance 1: Supervision/touching assistance Trials/Comments 1: CGA Transfer To/From: Bed, Chair Assistive Devices And Adaptive Equipments: Walker, front-wheeled Transfers 2 Technique 2: Via walking Level of Assistance 2: Partial/Mod assistance Trials/Comments 2: Yaneli from toilet Transfer To/From: Toilet Assistive Devices And Adaptive Equipments: Walker, front-wheeled Therapeutic ActivityTherapeutic Activity Time Entry: 20 Therapeutic Activity 1: Functional transfer Therapeutic Activity 2: Reviewed spinal precautions Therapeutic Activity 3: Functional mobility AM-PAC Daily Activity:Putting on and taking off regular lower body clothing: A Lot Bathing (including washing, rinsing, drying): A Lot Toileting, which includes using toilet, bedpan or urinal: A Little Putting on and taking off regular upper body clothing: A Little Taking care of personal grooming such as brushing teeth: A Little Eating Meals: None AM-PAC Daily Activity Raw Score: 17 MobilityHighest Level of Mobility Performed (-HLM): Walked 25 feet or more (i.e. walked outside of room) Patient Education:Education Documentation No documentation found. Education Comments No comments found. Goals:Encounter Goals Encounter Goals (Active) Pt will perform OOB ADL routine with no rest breaks required for increased FA tolerance (Progressing) Start: 08/08/24 Expected End: 09/05/24 Pt will perform functional transfers Mod I (Progressing) Start: 08/08/24 Expected End: 09/05/24 Pt will perform toileting Mod I (Progressing) Start: 08/08/24 Expected End: 09/05/24 Treatment Note: If this is the last documented treatment, then it will signify discharge from acute care prior to discharge from the therapy service and will serve as the discharge summary. Bronwyn Meneses OT * Sharyn Naranjo MD - 08/21/2024 8:09 AM CDT [facility] Progress Note Date: 08/21/2024 Chief Complaint: No chief complaint on file. History of Present Illness: Nichelle Hampton is a 69 y.o. female with past medical history of hypertension, diabetes mellitus (on no meds), reported history of coronary artery disease and tobacco use, was transferred from [facility] after LHC revealed severe left main disease and multivessel disease. She was originally admitted for hand cellulitis after a spider bite, but during that hospital stay she had hypoxic respiratory failure requiring BiPAP, NSTEMI, possibly newly diagnosed CHF (EF 45-50%), and Afib w/ RVR. She underwent a MARQUES w/ cardioversion. LHC and RHC on 07/31/23 which showed normal filling pressures, LHC which showed 80% mid to distal LM lesion extending into the ostium of LAD, 60-70% mid LAD, diffuse LCx and OM disease, and 70-80% proximal to mid RCA disease. She was transferred to [facility] for revascularizaton. On 08/06 she underwent PCI to LM-LAD with SARAH x4 complicated by cardiac arrest x2 where she was cannulated with VA ECMO. Found to have acute stent thrombosis s/p PTCA. 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 S/p ECMO decannulation 08/06. S/p mitraclip 08/10. Patient deemed not a candidate for advanced therapies due to extensive PAD. Impella and pressor support were weaned. Impella was decannulated 08/15. Patient transferred to IMU 08/16. Hospital course complicated by GI bleed. GI consulted. S/p EGD 08/12 and patient found to have bleeding AVMs s/p 5 clips, epi injection, and hemostatic powder/spray with hemostasis achieved. SAGE drain removed by HF Surgery 08/17/24. Low dose losartan was initiated for GDMT optimization. Subjective:No acute events overnight Objective: Physical Exam:BP (!) 120/55 | Pulse 66 | Temp 36.6 ?C (97.8 ?F) (Oral) | Resp 18 | Ht 1.6 m (5' 2.99") | Wt 51.6 kg (113 lb 12.1 oz) | SpO2 95% | BMI 20.16 kg/m? Intake/Output Summary (Last 24 hours) at 08/21/2024 0809Last data filed at 08/21/2024 0400 Gross per 24 hour Intake 336 ml Output 950 ml Net -614 ml General: alert and oriented, not in distressHead/mouth: oral mucosa moist, normal conjuntiva, normal eye movements Neck; supple, normal thyroid, no JVD Chest: no lesions, normal excursion Lungs: Clear to auscultation bilateral, no rales, no wheezes Heart: RHYTHM: RRR, no gallop, no rub, no murmur Abdomen: soft, non tender, non distended, BS+ Extremities: no Lower extremity edema, symmetric Laboratory Data: Normal electrolytes, stable renal function compare with yesterday WBC stable, Hb 9.3, plat 571 Assessment/Plan: Patient Active Problem ListDiagnosis New onset of congestive heart failure (CMS/HCC) ([facility]) Cellulitis Atrial fibrillation with RVR (CMS/HCC) ([facility]) Prediabetes Elevated troponin Hypertension Tobacco use Coronary artery disease Hyponatremia Hyperglycemia Pulmonary edema cardiac cause (CMS/HCC) ([facility]) Triple vessel coronary artery disease Acute non-ST elevation myocardial infarction (NSTEMI) (CMS/HCC) ([facility]) Tachy-sen syndrome (CMS/HCC) ([facility]) Tobacco use disorder Peripheral vascular disease ([facility]) Normocytic anemia Diabetes mellitus ([facility]) Compression fracture of T10 vertebra ([facility]) Cardiac arrest Shock (CMS/HCC) ([facility]) Nonrheumatic mitral valve regurgitation Melena AVM (arteriovenous malformation) Atypical atrial flutter (CMS/HCC) ([facility]) Chronic systolic heart failure (CMS/HCC) ([facility]) DAKOTA (acute kidney injury) ([facility]) Plan:--continue amiodarone, apixaban for a fib --continue DAPT, statin, no BB due to bradycardia, --GDMT: on low dose losartan, not on diuretics or SGLT2 inh due to marginal BP. --continue PT/OT per PT notes patient unable to walk due to bilateral knee pain. --discharge pending PT recs. Active medical conditions, plan and recommendations were discussed in lengthwith the patient. All the questions were answered. Complex Medical Decision Making in this encounter I spent 35 minutes preparing to see the patient including review of tests, obtaining history from the patient, performing exam, counseling and educating the patient, reconciling medication and reviewing adherence and interactions, ordering meds and tests and documenting clinical information in the electronic record Sharyn Naranjo MD * Rossy Fowler NP - 08/20/2024 3:37 PM CDT [facility] Note Date: 08/20/2024 HPI/Hospital course Nichelle Hampton is a 69 y.o. female with past medical history of hypertension, diabetes mellitus (on no meds), reported history of coronary artery disease and tobacco use, was transferred from [facility] after LHC revealed severe left main disease and multivessel disease. She was originally admitted for hand cellulitis after a spider bite, but during that hospital stay she had hypoxic respiratory failure requiring BiPAP, NSTEMI, possibly newly diagnosed CHF (EF 45-50%), and Afib w/ RVR. She underwent a MARQUES w/ cardioversion. LHC and RHC on 07/31/23 which showed normal filling pressures, LHC which showed 80% mid to distal LM lesion extending into the ostium of LAD, 60-70% mid LAD, diffuse LCx and OM disease, and 70-80% proximal to mid RCA disease. She was transferred to [facility] for revascularizaton. On 08/06 she underwent PCI to LM-LAD with SARAH x4 complicated by cardiac arrest x2 where she was cannulated with VA ECMO. Found to have acute stent thrombosis s/p PTCA. 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 S/p ECMO decannulation 08/06. S/p mitraclip 08/10. Patient deemed not a candidate for advanced therapies due to extensive PAD. Impella and pressor support were weaned. Impella was decannulated 08/15. Patient transferred to IMU 08/16. Hospital course complicated by GI bleed. GI consulted. S/p EGD 08/12 and patient found to have bleeding AVMs s/p 5 clips, epi injection, and hemostatic powder/spray with hemostasis achieved. SAGE drain removed by HF Surgery 08/17/24. Low dose losartan was initiated for GDMT optimization. Subjective: Patient resting in bed. No complaints this AM. Objective: Physical Exam: BP (!) 104/49 | Pulse 62 | Temp 36.3 ?C (97.4 ?F) | Resp 16 | Ht 1.6 m (5' 2.99") | Wt 52.2 kg (115 lb 1.3 oz) | SpO2 98% | BMI 20.39 kg/m? Intake/Output Summary (Last 24 hours) at 08/20/2024 1537 Last data filed at 08/20/2024 1200 Gross per 24 hour Intake 650 ml Output 1800 ml Net -1150 ml General: Resting comfortably, no obvious distress Head/mouth: oral mucosa moist, normal conjuntiva, normal eye movements Neuro: Alert and oriented x4, no focal deficits Neck; supple, JVD None Lungs: Clear to auscultation bilateral, no rales, no wheezes Heart: RHYTHM: RRR, no gallop, no rub Abdomen: soft, non tender, non distended, BS+ Extremities: no Lower extremity edema, symmetric, normal distal pulses Skin: no rashes, right chest incision site C/D/I Assessment & PlanCardiac arrest Shock (CMS/HCC) ([facility]) Nonrheumatic mitral valve regurgitation - S/p PCI x4 to LM-LAD c/b PEA arrest with 15 minutes of CPR and ECMO cannulation, finding of acute stent thrombosis s/p PTCA > with subsequent Impella 5.5 placement and decannulation of ECMO on 08/06/2024 - Vasopressors weaned off - Moderate MR noted on TTE and at bedside with large V waves on wedge waveform - S/p YAQUELIN on 08/10/24 - S/p impella decannulation 08/15 - s/p SAGE drain removal by HF Surgery 08/17/24 PLAN: - Patient not a candidate for advanced therapies given extensive PAD. Chronic systolic heart failure (CMS/HCC) ([facility]) MARQUES 08/15/24: EF 37%, no pericardial effusion PLAN: - Unable to start BB for now due to bradycardia - GDMT: Continue losartan 12.5 mg daily. Hold dapagliflozin given soft BP. No need for MRA as repeat EF 50-54%. - Diuretic: Hold diuresis given increased renal function - Repeat TTE 08/19: EF 50-54%, hypokinesis of mid posterior wall and basal to mid lateral wall, G2DD, well positioned mitraclip with mild residual MR, trace TR, trace pericardial effusion. Triple vessel coronary artery disease Coronary artery disease Acute non-ST elevation myocardial infarction (NSTEMI) (CMS/HCC) ([facility]) - S/p PCI x4 to LM-LAD c/b PEA arrest with 15 minutes of CPR and ECMO cannulation, > with subsequent Impella 5.5 placement and decannulation of ECMO on 08/06/2024. PLAN: - Lipids: continue atorvastatin 40 mg PO daily - Antiplatelet: continue aspirin 81 mg PO daily; brilinta 90 mg BID - Triple therapy for one month (aspirin end date 08/27/24) followed by eliquis and brilinta for 1 year. Atrial fibrillation with RVR ([facility]) ([facility]) Atypical atrial flutter ([facility]) ([facility]) - Continue Eliquis 5 mg Q12H - Continue amiodarone 200 mg daily Peripheral vascular disease ([facility]) - US lower extremity arterial doppler 07/31/24: Bilateral SFA progressive occlusions with reconstitution of flow appear chronic, Right distal [employer] occlusion, also likely chronic - 9 [place] removed 08/07/24 AVM (arteriovenous malformation) Melena - continue Protonix 40 mg daily - S/p EGD 08/12 and patient found to have bleeding AVMs s/p 5 clips, epi injection, and hemostatic powder/spray with hemostasis achieved - GI signed off. - Continue to monitor and trend labs - Transfuse blood products as needed Compression fracture of T10 vertebra ([facility]) - Incidental finding noted on admission CT 07/31/24 - Ortho-Spine consulted: no surgical intervention at this time Diabetes mellitus ([facility]) - Continue sliding scale insulin DAKOTA (acute kidney injury) ([facility]) - Creatinine increased today - Hold diuresis as above - Give 250 ml IVF x 1 dose - Adjust GDMT as above given elevated creatinine and soft BP Code Status: Full Code Quality Bundle PT/OT: Following Blood glucose (< 180 for the past 12h): Controlled Line necessity: PIVs only VTE ppx: Continue oral anticoagulation PUD ppx: pantoprazole - 40 MG LBM: Last BM Date: 08/17/24 (08/18/241999) increased bowel regimen Dispo: IMU. Adjust GDMT and diuresis as needed. Follow renal function and VS closely. Continue PT/OT, CM following. Pending recs for dispo once patient medically stable for discharge. Rossy Fowler NPAdvanced Cardiopulmonary Therapies and Transplantation (ACTAT) [facility] rounded [facility] and [facility]. CALL [phone] or [phone] to reach [facility] OR Via Secure Chat. * Lianet Marin LCSW - 08/20/2024 3:35 PM CDT CASE MANAGEMENT ROUTINE DISCHARGE PLAN NOTE LOS: 20 Barriers to Discharge: Monitoring renal function. PT/OT. DISCHARGE PLAN A: Home DISCHARGE PLAN B: Home with home health MILENA: 1-2 days * Francia Tariq OT - 08/20/2024 3:17 PM CDT Treatment Session Note Patient Name: Nichelle Hampton Today's Date: 08/20/2024 Preferred Language: Italian Assessment & Plan Assessment: Pt required decreased assistance for functional transfers and is tolerating increased bouts of OOB FA. Therefore, pt is demonstrating good progress towards OT goals overall. Pt will continue to benefit from skilled OT services to increase functional strength and FA tolerance for increased ADL independence. Precautions: UE Weight Bearing Status: (NWB RUE) Medical Precautions: TLSO OOB; spinal Post-Surgical Precautions: RUE impella Braces Applied: TLSO Subjective "I'd like to look out the window." Objective Pt presented in semi-livingston's, agreeable to OT tx. Pt transferred EOB SBA abiding by spinal precautions. TLSO donned EOB. Pt stood and ambulated to counter/closet in room with SBA. Pt performed IADL simulated task of reaching for various items and placing in cabinet, SBA overall, no LOB. Pt ambulated to window in room SBA and stood to look out window ~2 min. Pt transferred to recliner chair SBA. Pt left seated in recliner, VSS, all needs met. RN notified. Mobility/Transfers: Bed Mobility Bed Mobility Bed Mobility: Yes Bed Mobility 1 Level of Assistance 1: Supervision/touching assistance Bed Mobility To/From: Supine to sit on EOB Transfer Transfers Transfer: Yes Transfer 1 Level of Assistance 1: Supervision/touching assistance Transfer To/From: Qme-yu-Mgfeh/Gyoru-sk-Njv, Bed Transfers 2 Level of Assistance 2: Supervision/touching assistance Transfer To/From: Chair, Arp-ze-Szmmk/Fqgtx-ry-Lfj Treatment Bed Mobility: Bed Mobility Bed Mobility: Yes Bed Mobility 1 Level of Assistance 1: Supervision/touching assistance Bed Mobility To/From: Supine to sit on EOB Transfers: Transfers Transfer: Yes Transfer 1 Level of Assistance 1: Supervision/touching assistance Transfer To/From: Osr-dz-Ypbea/Ozvym-pl-Qnd, Bed Transfers 2 Level of Assistance 2: Supervision/touching assistance Transfer To/From: Chair, Wzc-tr-Yfuid/Xdiya-jk-Gdp Mobility Highest Level of Mobility Performed (JH-HLM): Walked 10 steps or more (i.e. walked to restroom) Goals: Encounter Goals Encounter Goals (Active) Pt will perform OOB ADL routine with no rest breaks required for increased FA tolerance Start: 08/08/24 Expected End: 09/05/24 Pt will perform functional transfers Mod I Start: 08/08/24 Expected End: 09/05/24 Pt will perform toileting Mod I Start: 08/08/24 Expected End: 09/05/24 Treatment Note: If this is the last documented treatment, then it will signify discharge from acute care prior to discharge from the therapy service and will serve as the discharge summary. Francia Tariq OT * Jesse Hernandes MD - 08/20/2024 2:29 PM CDT HF Surgery Progress Note PMH: 69 yo female w/ PMH including HTN, DM, CAD and tobacco abuse who was transferred to [facility] for revascularization after LHC at [facility] revealed multivessel disease with severe L main disease. Other relevant events at OSH included cellulitis 2/2 to spider bite and hypoxic respiratory failure requiring bipap, afib RVR and possible new diagnosis of CHF (EF 45-50%). 08/06 High-risk successful LM-LAD PCI with SARAH x4 , complicated by PEA, emergent vaECMO, due to in-stent thrombosis 08/06 Impella 5.5 placement axillary R and vaECMO removal w/ art repair 08/10 YAQUELIN (1x MitraClip), reduction MR 3+ to 2+ 08/12 GI placed 5 clips for multiple angioectasias in the 2nd part of the duodenum (bleeding was observed). 08/15 impella decannulation Subjective: PO5 4 after Impella decannnulation. Impella wound ok, no hematoma. Labs stable. CXR stable. Had some vomiting today after walking with PT. No orthostasis. BP normal. A/P: - Daily wound checks, impella site, vicki in place, removal in 3 weeks postop. - One dose zofran please. - Continue PPI and monitor for GIB. - Rest per cardio Objective Last Recorded Vitals Blood pressure (!) 122/59, pulse 66, temperature 36.5 ?C (97.7 ?F), temperature source Oral, resp. rate 16, height 1.6 m (5' 2.99"), weight 52.2 kg (115 lb 1.3 oz), SpO2 95%. Pertinent Labs : Lab ResultsComponent Value Date WBC 10.75 (H) 08/20/2024 Hgb 9.7 (L) 08/20/2024 Hct 30.4 (L) 08/20/2024 Plt Count 558 (H) 08/20/2024 Lab ResultsComponent Value Date Sodium Lvl 138 08/20/2024 Potassium Lvl 4.2 08/20/2024 Chloride Lvl 101 08/20/2024 CO2 Lvl 28.0 08/20/2024 BUN 32 (H) 08/20/2024 Creatinine Lvl 1.30 (H) 08/20/2024 Glucose Lvl 147 (H) 08/20/2024 POC Glu 190 (H) 08/20/2024 Lab ResultsComponent Value Date Calcium Lvl 8.8 08/20/2024 Magnesium 2.15 08/20/2024 Phosphorus Lvl 4.1 08/20/2024 Lab ResultsComponent Value Date AST 29 08/20/2024 ALT 30 08/20/2024 Alkaline Phosphatase 142 (H) 08/20/2024 Lab ResultsComponent Value Date PTT 37.5 (H) 08/18/2024 Physical Exam:Constitutional: Interventions: She is sedated. HENT: Head: Atraumatic. Nose: Nose normal. Mouth/Throat: Mouth: Mucous membranes are moist. Eyes: Extraocular Movements: Extraocular movements intact. Conjunctiva/sclera: Conjunctivae normal. Cardiovascular: Rate and Rhythm: Normal rate and regular rhythm. Heart sounds: Normal heart sounds. Abdominal: General: Bowel sounds are normal. Palpations: Abdomen is soft. Skin: General: Skin is warm. Capillary Refill: Capillary refill takes less than 2 seconds. Neurological: General: No focal deficit present. Psychiatric: Behavior: Behavior is cooperative. Assessment & PlanTriple vessel coronary artery disease Acute non-ST elevation myocardial infarction (NSTEMI) (CMS/HCC) ([facility]) Tachy-sen syndrome (CMS/HCC) ([facility]) Tobacco use disorder Peripheral vascular disease ([facility]) Normocytic anemia Compression fracture of T10 vertebra (HCC) New onset of congestive heart failure (CMS/HCC) ([facility]) Atrial fibrillation with RVR (CMS/HCC) ([facility]) Prediabetes Diabetes mellitus (HCC) Coronary artery disease Cardiac arrest Shock (CMS/HCC) ([facility]) Nonrheumatic mitral valve regurgitation Melena#Multivessel CAD with left main dx. #acute hypoxemic respiratory failure #Pulmonary edema #preop pulmonary edema #CHF #cellulitis #afib RVR #dm2 #htn #tobacco use AVM (arteriovenous malformation) Atypical atrial flutter (CMS/HCC) ([facility]) Chronic systolic heart failure (CMS/HCC) ([facility]) Current Diet: Adult Diet Heart Healthy Jesse Hernandes MD08/20/24 * Elizabet Gomez PTAS - 08/20/2024 1:50 PM CDT Treatment Session Note Patient Name: Nichelle Hampton Today's Date: 08/20/2024 Assessment & Plan Assessment: Pt was able to ambulate with the use of RW requiring supervision/touching CGA/ MIN A . No LOB during todays treatment session and vitals remained stable, but patient was limited due to BLE knee pain rated at 8/10. The pain was significant enough that pt required two breaks during ambulation. Pt experienced labile behavior patterns midway through therapy. Pt will continue to benefit from skilled PT to maximize independence with functional mobility, increase activity tolerance, and progress towards goals, pt is at fall risk. Prognosis: Good Barriers to Discharge: Complicated medical history, Medical diagnosis, Severity of deficits Evaluation/Treatment Tolerance: Patient limited by pain Medical Staff Made Aware: Yes Strengths: Ability to acquire knowledge Plan: Treatment Plan/Goals Established with Patient/Caregiver: Yes Treatment/Interventions: Bed mobility training, Balance training, Functional activities, Gait training, Pain management, Patient education, Positioning, Posture/Body mechanics baring PT Plan: Skilled PT PT Frequency: 3-4 times per week until discharge Subjective "Lord christian help me" Precautions: UE Weight Bearing Status: FWB LE Weight Bearing Status: FWB Medical Precautions: TLSO OOB; spinal Braces Applied: TLSO Pain: Knee pain 8/10 Objective General Visit Information: Cleared with nurse for PT. Pt was found in recliner and agreeable to participate. Lines were cleared and moved out the way. TLSO was adjusted. Stood using RW requiring SBA. Initially the patients vitals remained stable and she was able to stand and walk though she began experiencing knee pain rated at 8/10. The pain was significant enough that the patient required two breaks during the session. The pt was able to continue walking despite the pain but started to breakdown midway through the session. Just before reaching her room, she expressed difficulty in continuing, stating that she could no longer proceed due to the intensity of the knee pain. At this point, the patient became emotional and began crying. Recognizing patients distress and in an effort to prevent further distress, I provided assistance by rolling her back to her room using a chair. Asked pt if she wanted some medications but she denied. Transferred her back to bedside chair using stand pivot and requiring mod asisstance. Pt reported feeling nauseas and wanted to vomit. Emesis bag was provided. came to the room and was notified about how pt felt. VSS, call yanes on reach and all needs met. PT Last Visit PT Received On: 08/20/24 Activity Tolerance:Endurance: Tolerates 10 - 20 min exercise with multiple rests Sitting Balance: Sits without support for more than 30 sec Early Mobility/Exercise Safety Screen: Proceed with mobilization - No exclusion criteria met CognitionOverall Cognitive Status: Within Functional Limits TreatmentTherapeutic activity: Therapeutic Activity Therapeutic Activity Time Entry: 23 Therapeutic Activity 1: transfer Therapeutic Activity 2: EDU Transfers: Transfers 1:Technique 1: Via walking Level of Assistance 1: Supervision/touching assistance Transfer To/From: Chair, [id number] Assistive Devices And Adaptive Equipments: Walker, front-wheeled Transfers 2:Technique 2: Stand pivot Level of Assistance 2: Partial/Mod assistance Transfer To/From: [id number], Chair Assistive Devices And Adaptive Equipments: No device Gait training: Gait Training Time Entry: 15 Gait Training Activity 1:Distance (enter in feet): 30x2 Gait Training Activity 1: Indoor surface Assistive Devices And Adaptive Equipments: Walker, front-wheeled Level of Assistance 1: Partial/Mod assistance, Supervision/touching assistance Gait Training Activity 1 Comment: Pt reported having pain in BLE 8/10 AM-PAC Basic Mobility:AM-PAC Basic Mobility Inpatient Turning in bed without bedrails: A Little Lying on back to sitting on edge of flat bed: A Little Bed to chair: A Little Standing up from chair: A Little Walk in room: A Little Climbing 3-5 stairs: A Lot Mobility Inpatient Raw Score: 17 JH-HLM Goal: 5 Mobility: Highest Level of Mobility Performed (JH-HLM)JH-HLM Goal: 5 Highest Level of Mobility Performed (JH-HLM): Walked 25 feet or more (i.e. walked outside of room) Patient Education:Education Documentation No documentation found. Education Comments No comments found. Goals:Encounter Goals Encounter Goals (Active) Patient will progress bed mobility to GG Code 6 - Independent, using without adaptive aid, by discharge. Start: 08/10/24 Expected End: 09/21/24 The patient will progress transfers to GG Code 6 - Independent using no device vs LRAD, by discharge. Start: 08/10/24 Expected End: 09/21/24 The patient will ambulate 150+ feet with no device vs LRAD and GG Code 6 - Independent, by discharge. Start: 08/10/24 Expected End: 09/21/24 Supervising Digital Coordinator: Katherine Tan PTA Update/change in plan of care was communicated with Digital Coordinator. Treatment Note: If this is the last documented treatment, then it will signify discharge from acute care prior to discharge from the therapy service and will serve as the discharge summary. Elizabet Gomez PTAS Cosigned by Katherine Tan PTA at 08/20/2024 5:11 PM CDT * Sharyn Naranjo MD - 08/20/2024 9:08 AM CDT [facility] Progress Note Date: 08/20/2024 Chief Complaint: No chief complaint on file. History of Present Illness: Nichelle Hampton is a 69 y.o. female with past medical history of hypertension, diabetes mellitus (on no meds), reported history of coronary artery disease and tobacco use, was transferred from [facility] after LHC revealed severe left main disease and multivessel disease. She was originally admitted for hand cellulitis after a spider bite, but during that hospital stay she had hypoxic respiratory failure requiring BiPAP, NSTEMI, possibly newly diagnosed CHF (EF 45-50%), and Afib w/ RVR. She underwent a MARQUES w/ cardioversion. LHC and RHC on 07/31/23 which showed normal filling pressures, LHC which showed 80% mid to distal LM lesion extending into the ostium of LAD, 60-70% mid LAD, diffuse LCx and OM disease, and 70-80% proximal to mid RCA disease. She was transferred to [facility] for revascularizaton. On 08/06 she underwent PCI to LM-LAD with SARAH x4 complicated by cardiac arrest x2 where she was cannulated with VA ECMO. Found to have acute stent thrombosis s/p PTCA. 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 S/p ECMO decannulation 08/06. S/p mitraclip 08/10. Patient deemed not a candidate for advanced therapies due to extensive PAD. Impella and pressor support were weaned. Impella was decannulated 08/15. Patient transferred to IMU 08/16. Hospital course complicated by GI bleed. GI consulted. S/p EGD 08/12 and patient found to have bleeding AVMs s/p 5 clips, epi injection, and hemostatic powder/spray with hemostasis achieved. SAGE drain removed by HF Surgery 08/17/24. Low dose losartan was initiated for GDMT optimization with continued PT/OT ordered daily. Subjective:No acute events overnight Objective: Physical Exam:BP (!) 117/53 | Pulse 66 | Temp 36.5 ?C (97.7 ?F) (Oral) | Resp 18 | Ht 1.6 m (5' 2.99") | Wt 52.2 kg (115 lb 1.3 oz) | SpO2 95% | BMI 20.39 kg/m? MAP 60-78 mmHg Intake/Output Summary (Last 24 hours) at 08/20/2024 0908Last data filed at 08/20/2024 0400 Gross per 24 hour Intake 1000 ml Output 1700 ml Net -700 ml General: alert and oriented, not in distress Head/mouth: oral mucosa moist, normal conjuntiva, normal eye movements Neck; supple, normal thyroid, no JVD Chest: no lesions, normal excursion Lungs: Clear to auscultation bilateral, no rales, no wheezes Heart: RHYTHM: RRR, no gallop, no rub, no murmur Abdomen: soft, non tender, non distended, BS+ Extremities: no Lower extremity edema, symmetric Laboratory Data: Normal electrolytes, renal function worsening, BUN trending up LFTs normal WBC 10.7, hb 9.7 stable, plat 558 trending up. Echo 08/18 with LVEF 50-54%, a well positioned mitral clip across the mitral valve leaflets (mean gradient 5 mmHg at a HR of 65 bpm, MVA 1.1 cm2 by continuity equation), mild residual mitral regurgitation, trace tricuspid regurgitation, trivial pericardial effusion. Assessment/Plan: Patient Active Problem ListDiagnosis New onset of congestive heart failure (CMS/HCC) ([facility]) Cellulitis Atrial fibrillation with RVR (CMS/HCC) ([facility]) Prediabetes Elevated troponin Hypertension Tobacco use Coronary artery disease Hyponatremia Hyperglycemia Pulmonary edema cardiac cause (CMS/HCC) ([facility]) Triple vessel coronary artery disease Acute non-ST elevation myocardial infarction (NSTEMI) (CMS/HCC) ([facility]) Tachy-sen syndrome (CMS/HCC) ([facility]) Tobacco use disorder Peripheral vascular disease ([facility]) Normocytic anemia Diabetes mellitus (HCC) Compression fracture of T10 vertebra (HCC) Cardiac arrest ([facility]) Shock (CMS/HCC) ([facility]) Nonrheumatic mitral valve regurgitation Melena AVM (arteriovenous malformation) Atypical atrial flutter (CMS/HCC) ([facility]) Chronic systolic heart failure (CMS/HCC) ([facility]) Plan:--GDMT: low dose losartan, dapaglifozin. Not on on BB due to bradycardia. Titration of medications limited by marginal BP, no need for MRA since EF 50-55%, we will hold on dapa given hypotension --continue amiodarone 200 mg daily ---continue apixaban for a fib, per ICU notes, plan to continue with triple therapy for one month (Aspirin last date 08/27/24) followed by apixaban and brillinta for 1 year --needs close follow up of GIB, continue pantoprazol --hold diuretics, give 250 ml IVF today --continue working with PT/OT --discharge pending if renal function improves, PT recs. Active medical conditions, plan and recommendations were discussed in length with the patient. All the questions were answered. Complex Medical Decision Making in this encounter I spent 35 minutes preparing to see the patient including review of tests, obtaining history from the patient, performing exam, counseling and educating the patient, reconciling medication and reviewing adherence and interactions, ordering meds and tests and documenting clinical information in the electronic record Sharyn Naranjo MD * Cruz Solomon MD - 08/19/2024 3:25 PM CDT [facility] Progress Note Date: 08/19/2024 HPI/Hospital course Nichelle Hampton is a 69 y.o. female with past medical history of hypertension, diabetes mellitus (on no meds), reported history of coronary artery disease and tobacco use, was transferred from [facility] after LHC revealed severe left main disease and multivessel disease. She was originally admitted for hand cellulitis after a spider bite, but during that hospital stay she had hypoxic respiratory failure requiring BiPAP, NSTEMI, possibly newly diagnosed CHF (EF 45-50%), and Afib w/ RVR. She underwent a MARQUES w/ cardioversion. LHC and RHC on 07/31/23 which showed normal filling pressures, LHC which showed 80% mid to distal LM lesion extending into the ostium of LAD, 60-70% mid LAD, diffuse LCx and OM disease, and 70-80% proximal to mid RCA disease. She was transferred to [facility] for revascularizaton. On 08/06 she underwent PCI to LM-LAD with SARAH x4 complicated by cardiac arrest x2 where she was cannulated with VA ECMO. Found to have acute stent thrombosis s/p PTCA. 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 S/p ECMO decannulation 08/06. S/p mitraclip 08/10. Patient deemed not a candidate for advanced therapies due to extensive PAD. Impella and pressor support were weaned. Impella was decannulated 08/15. Patient transferred to IMU 08/16. Hospital course complicated by GI bleed. GI consulted. S/p EGD 08/12 and patient found to have bleeding AVMs s/p 5 clips, epi injection, and hemostatic powder/spray with hemostasis achieved. SAGE drain removed by HF Surgery 08/17/24. Subjective: -- Events noted. No current complaints. Adequate tolerance to low-dose losartan and dapagliflozin. Not on beta-blockers due to episodes of bradycardia. Adequate tolerance to systemic anticoagulation. Plan to continue triple therapy for a month. Will discontinue aspirin with continuation of apixaban and Brilinta. Objective: BP (!) 115/51 | Pulse 67 | Temp 36.5 ?C (97.7 ?F) | Resp 18 | Ht 1.6 m (5' 2.99") | Wt 53 kg (116 lb 13.5 oz) | SpO2 97% | BMI 20.70 kg/m? Intake/Output Summary (Last 24 hours) at 08/19/2024 1526 Last data filed at 08/19/2024 1200 Gross per 24 hour Intake 790 ml Output 2550 ml Net -1760 ml Physical Exam: General Appearance: in no acute distress HEENT: Normocephalic atraumatic, pupils equal/round/reactive Neck: Supple, -JVD Respiratory: Clear to auscultation bilaterally, no wheezes/rales/rhonchi, non-labored, symmetrical chest wall expansion and good air entry Cardiovascular: Regular rate and regular rhythm, no lower peripheral edema Gastrointestinal: soft, non-tender, non-distended, active bowel sounds Musculoskeletal: No obvious deformity. moves all 4 extremities Integumentary: Warm, Dry, [place]. Intact. No jaundice Neurologic: Aa&ox4. follows all commands Psychiatric: Cooperative, Appropriate mood & affect Assessment & Plan [place] [place]) Nonrheumatic mitral valve regurgitation - S/p PCI x4 to LM-LAD c/b PEA arrest with 15 minutes of CPR and ECMO cannulation, finding of acute stent thrombosis s/p PTCA > with subsequent Impella 5.5 placement and decannulation of ECMO on 08/06/2024 - Vasopressors weaned off - Moderate MR noted on TTE and at bedside with large V waves on wedge waveform - S/p YAQUELIN on 08/10/24 - d/c [place] Lei catheter - s/p SAGE drain removal by HF Surgery 08/17/24 PLAN: - Patient not a candidate for advanced therapies given extensive PAD. Chronic systolic heart failure ([facility]) ([facility]) MARQUES 08/15/24: EF 37%, no pericardial effusion PLAN: - Consider starting low dose beta kelly tomorrow if tolerated. Hold for now due to bradycardia HR 50's - GDMT: Addition of MRA to follow pending clinical course - Continue Losartan 12.5 mg daily 08/17/24 - Continue Farxiga 10 mg daily - Diuretic: continue Lasix PO 40 mg BID as maintenance diuretics - Repeat TTE pending. Triple vessel coronary artery disease Coronary artery disease Acute non-ST elevation myocardial infarction (NSTEMI) ([facility]) ([facility]) - S/p PCI x4 to LM-LAD c/b PEA arrest with 15 minutes of CPR and ECMO cannulation, > with subsequent Impella 5.5 placement and decannulation of ECMO on 08/06/2024. PLAN: - Lipids: continue atorvastatin 40 mg PO daily - Antiplatelet: continue aspirin 81 mg PO daily; brilinta 90 mg BID - Triple therapy for one month (aspirin end date 08/27/24) followed by mary for 1 year. Atrial fibrillation with RVR (CMS/HCC) (HCC) Atypical atrial flutter (CMS/HCC) (HCC) - Anticoa noted to be here tomorrow Peripheral vascular disease (HCC) - US lower extremity arterial doppler 07/31/24: Bilateral SFA progressive occlusions with reconstitution of flow appear chronic, Right distal GAS AND OIL CHECKER occlusion, also likely chronic - 9 [place] Sheath removed 08/07/24 AVM (arteriovenous malformation) Melena - continue Protonix 40 mg daily - GI consulted - Discontinue octreotide - Continue to monitor and trend labs - Transfuse for Hemoglobin of >7 Compression fracture of T10 vertebra (HCC) - Incidental finding noted on admission CT 07/31/24 - Ortho-Spine consulted: no surgical intervention at this time Diabetes mellitus (HCC) - Continue sliding scale insulin Code Status: Full Code Disposition: IMU. Pending GDMT optimization. Continue daily PT/OT ordered. Active medical conditions, plan and recommendations were discussed in length with the patient. All the questions were answered. (This note was dictated using voice recognition speech to text software and may contain inadvertent recognition errors). Cruz Solomon MD Advanced Cardiopulmonary Therapies and Transplantation (ACTAT) * Diego Reynaga MD - 08/19/2024 1:32 PM CDT HF Surgery Progress Note PMH: 69 yo female w/ PMH including HTN, DM, CAD and tobacco abuse who was transferred to [facility] for revascularization after LHC at [facility] revealed multivessel disease with severe L main disease. Other relevant events at OSH included cellulitis 2/2 to spider bite and hypoxic respiratory failure requiring bipap, afib RVR and possible new diagnosis of CHF (EF 45-50%). 08/06 High-risk successful LM-LAD PCI with SARAH x4 , complicated by PEA, emergent vaECMO, due to in-stent thrombosis 08/06 Impella 5.5 placement axillary R and vaECMO removal w/ art repair 08/10 YAQUELIN (1x MitraClip), reduction MR 3+ to 2+ 08/12 GI placed 5 clips for multiple angioectasias in the 2nd part of the duodenum (bleeding was observed). 08/15 impella decannulation Subjective: POD 4 after Impella decannnulation. Impella wound ok, no hematoma. Labs stable. CXR stable. A/P: - daily wound checks, impella site, vicki in place, removal in 3 weeks postop. - rest per cardio Objective Last Recorded Vitals Blood pressure (!) 115/51, pulse 67, temperature 36.5 ?C (97.7 ?F), resp. rate 18, height 1.6 m (5' 2.99"), weight 53 kg (116 lb 13.5 oz), SpO2 97%. Pertinent Labs : Lab ResultsComponent Value Date WBC 12.26 (H) 08/19/2024 Hgb 9.7 (L) 08/19/2024 Hct 30.3 (L) 08/19/2024 Plt Count 509 (H) 08/19/2024 Lab ResultsComponent Value Date Sodium Lvl 138 08/19/2024 Potassium Lvl 3.9 08/19/2024 Chloride Lvl 101 08/19/2024 CO2 Lvl 28.4 08/19/2024 BUN 27 (H) 08/19/2024 Creatinine Lvl 1.08 (H) 08/19/2024 Glucose Lvl 110 (H) 08/19/2024 POC Glu 266 (H) 08/19/2024 Lab ResultsComponent Value Date Calcium Lvl 8.5 08/19/2024 Magnesium 2.00 08/19/2024 Phosphorus Lvl 4.3 08/19/2024 Lab ResultsComponent Value Date AST 23 08/19/2024 ALT 27 08/19/2024 Alkaline Phosphatase 136 (H) 08/19/2024 Lab ResultsComponent Value Date PTT 37.5 (H) 08/18/2024 Prothrombin Time (PT) 17.8 (H) 08/17/2024 INR 1.45 (H) 08/17/2024 Physical Exam:Constitutional: Interventions: She is sedated. HENT: Head: Atraumatic. Nose: Nose normal. Mouth/Throat: Mouth: Mucous membranes are moist. Eyes: Extraocular Movements: Extraocular movements intact. Conjunctiva/sclera: Conjunctivae normal. Cardiovascular: Rate and Rhythm: Normal rate and regular rhythm. Heart sounds: Normal heart sounds. Abdominal: General: Bowel sounds are normal. Palpations: Abdomen is soft. Skin: General: Skin is warm. Capillary Refill: Capillary refill takes less than 2 seconds. Neurological: General: No focal deficit present. Psychiatric: Behavior: Behavior is cooperative. Assessment & PlanTriple vessel coronary artery disease Acute non-ST elevation myocardial infarction (NSTEMI) (CMS/HCC) (HCC) Tachy-sen syndrome (CMS/HCC) (HCC) Tobacco use disorder Peripheral vascular disease (HCC) Normocytic anemia Compression fracture of T10 vertebra (HCC) New onset of congestive heart failure (CMS/HCC) (HCC) Atrial fibrillation with RVR (CMS/HCC) (HCC) Prediabetes Diabetes mellitus (HCC) Coronary artery disease Cardiac arrest Shock (CMS/HCC) (HCC) Nonrheumatic mitral valve regurgitation Melena#Multivessel CAD with left main dx. #acute hypoxemic respiratory failure #Pulmonary edema #preop pulmonary edema #CHF #cellulitis #afib RVR #dm2 #htn #tobacco use AVM (arteriovenous malformation) Atypical atrial flutter (CMS/HCC) (HCC) Chronic systolic heart failure (CMS/HCC) (HCC) Current Diet: Adult Diet Heart Healthy Diego Reynaga MD08/19/24 Cosigned by Paulo Harding MD at 08/20/2024 1:28 PM CDT * Steve Layo Najera NP - 08/19/2024 11:17 AM CDT [facility] Progress Note Date: 08/19/2024 HPI/Hospital course Nichelle Hampton is a 69 y.o. female with past medical history of hypertension, diabetes mellitus (on no meds), reported history of coronary artery disease and tobacco use, was transferred from [facility] after LHC revealed severe left main disease and multivessel disease. She was originally admitted for hand cellulitis after a spider bite, but during that hospital stay she had hypoxic respiratory failure requiring BiPAP, NSTEMI, possibly newly diagnosed CHF (EF 45-50%), and Afib w/ RVR. She underwent a MARQUES w/ cardioversion. LHC and RHC on 07/31/23 which showed normal filling pressures, LHC which showed 80% mid to distal LM lesion extending into the ostium of LAD, 60-70% mid LAD, diffuse LCx and OM disease, and 70-80% proximal to mid RCA disease. She was transferred to [facility] for revascularizaton. On 08/06 she underwent PCI to LM-LAD with SARAH x4 complicated by cardiac arrest x2 where she was cannulated with VA ECMO. Found to have acute stent thrombosis s/p PTCA. 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 S/p ECMO decannulation 08/06. S/p mitraclip 08/10. Patient deemed not a candidate for advanced therapies due to extensive PAD. Impella and pressor support were weaned. Impella was decannulated 08/15. Patient transferred to IMU 08/16. Hospital course complicated by GI bleed. GI consulted. S/p EGD 08/12 and patient found to have bleeding AVMs s/p 5 clips, epi injection, and hemostatic powder/spray with hemostasis achieved. SAGE drain removed by HF Surgery 08/17/24. Subjective: Interval Events: no overnight acute event, participating with PT/OT, sitting upright in bedside chair, tolerating PO intake Objective: BP (!) 112/53 | Pulse 74 | Temp 36.5 ?C (97.7 ?F) | Resp 18 | Ht 1.6 m (5' 2.99") | Wt 53 kg (116 lb 13.5 oz) | SpO2 96% | BMI 20.70 kg/m? Intake/Output Summary (Last 24 hours) at 08/19/2024 1117 Last data filed at 08/19/2024 0831 Gross per 24 hour Intake 660 ml Output 2350 ml Net -1690 ml Physical Exam: General Appearance: in no acute distress HEENT: Normocephalic atraumatic, pupils equal/round/reactive Neck: Supple, -JVD Respiratory: Clear to auscultation bilaterally, no wheezes/rales/rhonchi, non-labored, symmetrical chest wall expansion and good air entry Cardiovascular: Regular rate and regular rhythm, no lower peripheral edema Gastrointestinal: soft, non-tender, non-distended, active bowel sounds Musculoskeletal: No obvious deformity. moves all 4 extremities Integumentary: Warm, Dry, [place]. Intact. No jaundice Neurologic: Aa&ox4. follows all commands Psychiatric: Cooperative, Appropriate mood & affect Assessment & Plan [place] [place]) Nonrheumatic mitral valve regurgitation - S/p PCI x4 to LM-LAD c/b PEA arrest with 15 minutes of CPR and ECMO cannulation, finding of acute stent thrombosis s/p PTCA > with subsequent Impella 5.5 placement and decannulation of ECMO on 08/06/2024 - Vasopressors weaned off - Moderate MR noted on TTE and at bedside with large V waves on wedge waveform - S/p YAQUELIN on 08/10/24 - d/c [place] Lei catheter - s/p SAGE drain removal by HF Surgery 08/17/24 PLAN: - Patient not a candidate for advanced therapies given extensive PAD. No plan for re-insertion of Impella after removal Chronic systolic heart failure ([facility]) ([facility]) MARQUES 08/15/24: EF 37%, no pericardial effusion PLAN: - Consider starting low dose beta kelly tomorrow if tolerated. Hold for now due to bradycardia HR 50's - GDMT: Addition of SUSIE/Entresto/MRA to follow pending clinical course - Continue Losartan 12.5 mg daily 08/17/24 - Continue Farxiga 10 mg daily - Diuretic: continue Lasix PO 40 mg BID as maintenance diuretics - Repeat TTE pending, ordered 08/18/24 Triple vessel coronary artery disease Coronary artery disease Acute non-ST elevation myocardial infarction (NSTEMI) ([facility]) ([facility]) - S/p PCI x4 to LM-LAD c/b PEA arrest with 15 minutes of CPR and ECMO cannulation, > with subsequent Impella 5.5 placement and decannulation of ECMO on 08/06/2024. PLAN: - Lipids: continue atorvastatin 40 mg PO daily - Antiplatelet: continue aspirin 81 mg PO daily; brilinta 90 mg BID - Triple therapy for one month (aspirin end date 08/27/24) followed by mary for 1 year. Atrial fibrillation with RVR (CMS/HCC) (HCC) Atypical atrial flutter (CMS/HCC) (HCC) - Anticoagulation: continue eliquis - Continue PO amiodarone 200 mg daily, consider discontinuing tomorrow to allow for beta kelly initiation Peripheral vascular disease (HCC) - US lower extremity arterial doppler 07/31/24: Bilateral SFA progressive occlusions with reconstitution of flow appear chronic, Right distal GAS AND OIL CHECKER occlusion, also likely chronic - 9 [place] Sheath removed 08/07/24 AVM (arteriovenous malformation) Melena - continue Protonix 40 mg daily - GI consulted - Discontinue octreotide - Continue to monitor and trend labs - Transfuse for Hemoglobin of >7 Compression fracture of T10 vertebra (HCC) - Incidental finding noted on admission CT 07/31/24 - Ortho-Spine consulted: no surgical intervention at this time Diabetes mellitus (HCC) - Continue sliding scale insulin Code Status: Full Code Disposition: IMU. Pending GDMT optimization. Continue daily PT/OT ordered. Repeat TTE pending. Steve Najera NP Advanced Cardiopulmonary Therapies and Transplantation (ACTAT) Patient rounded on and plan of care discussed with Dr. Campbell at the bedside. CALL [phone] or [phone] to reach [facility] OR Via Secure Chat. * Cruz Solomon MD - 08/18/2024 7:25 PM CDT [facility] Progress Note Date: 08/18/2024 HPI/Hospital course Nichelle Hampton is a 69 y.o. female with past medical history of hypertension, diabetes mellitus (on no meds), reported history of coronary artery disease and tobacco use, was transferred from [facility] after [facility] revealed severe left main disease and multivessel disease. She was originally admitted for hand cellulitis after a spider bite, but during that hospital stay she had hypoxic respiratory failure requiring BiPAP, NSTEMI, possibly newly diagnosed CHF (EF 45-50%), and Afib w/ RVR. She underwent a MARQUES w/ cardioversion. LHC and RHC on 07/31/23 which showed normal filling pressures, LHC which showed 80% mid to distal LM lesion extending into the ostium of LAD, 60-70% mid LAD, diffuse LCx and OM disease, and 70-80% proximal to mid RCA disease. She was transferred to [facility] for revascularizaton. On 08/06 she underwent PCI to LM-LAD with SARAH x4 complicated by cardiac arrest x2 where she was cannulated with VA ECMO. Found to have acute stent thrombosis s/p PTCA. 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 S/p ECMO decannulation 08/06. S/p mitraclip 08/10. Patient deemed not a candidate for advanced therapies due to extensive PAD. Impella and pressor support were weaned. Impella was decannulated 08/15. Patient transferred to IMU 08/16. Hospital course complicated by GI bleed. GI consulted. S/p EGD 08/12 and patient found to have bleeding AVMs s/p 5 clips, epi injection, and hemostatic powder/spray with hemostasis achieved. SAGE drain removed by HF Surgery 08/17/24. Subjective: -- Events noted. Adequate tolerance to low-dose losartan and dapagliflozin. Not on beta-blockers due to episodes of bradycardia. Adequate tolerance to systemic anticoagulation. Plan to continue triple therapy for a month. Will discontinue aspirin with continuation of apixaban and Brilinta. Pending TTE for functional and structural reevaluation. Objective: BP (!) 115/57 | Pulse 65 | Temp 36.6 ?C (97.8 ?F) (Oral) | Resp 22 | Ht 1.6 m (5' 2.99") | Wt 54.5 kg (120 lb 2.4 oz) | SpO2 97% | BMI 21.29 kg/m? Intake/Output Summary (Last 24 hours) at 08/18/20241924 Last data filed at 08/18/2024 1800 Gross per 24 hour Intake 680 ml Output 900 ml Net -220 ml Physical Exam: General Appearance: in no acute distress HEENT: Normocephalic atraumatic, pupils equal/round/reactive Neck: Supple, -JVD Respiratory: Clear to auscultation bilaterally, no wheezes/rales/rhonchi, non-labored, symmetrical chest wall expansion and good air entry Cardiovascular: Regular rate and regular rhythm, no lower peripheral edema Gastrointestinal: soft, non-tender, non-distended, active bowel sounds Musculoskeletal: No obvious deformity. moves all 4 extremities Integumentary: Warm, Dry, [place]. Intact. No jaundice Neurologic: Aa&ox4. follows all commands Psychiatric: Cooperative, Appropriate mood & affect Assessment & Plan Cardiac arrest Shock ([facility]) ([facility]) Nonrheumatic mitral valve regurgitation - S/p PCI x4 to LM-LAD c/b PEA arrest with 15 minutes of CPR and ECMO cannulation, finding of acute stent thrombosis s/p PTCA > with subsequent Impella 5.5 placement and decannulation of ECMO on 08/06/2024 - Vasopressors weaned off - Moderate MR noted on TTE and at bedside with large V waves on wedge waveform - S/p YAQUELIN on 08/10/24 - d/c [place] Lei catheter - s/p SAGE drain removal by HF Surgery 08/17/24 PLAN: - Patient not a candidate for advanced therapies given extensive PAD. No plan for re-insertion of Impella after removal Chronic systolic heart failure ([facility]) ([facility]) PLAN: - Consider starting low dose beta kelly tomorrow if tolerated. Hold for now due to bradycardia HR 50's - GDMT: Addition of SUSIE/Entresto/MRA to follow pending clinical course - Continue Losartan 12.5 mg daily 08/17/24 - Continue Farxiga 10 mg daily - Diuretic: continue Lasix PO 40 mg BID as maintenance diuretics Triple vessel coronary artery disease Coronary artery disease Acute non-ST elevation myocardial infarction (NSTEMI) ([facility]) ([facility]) - S/p PCI x4 to LM-LAD c/b PEA arrest with 15 minutes of CPR and ECMO cannulation, > with subsequent Impella 5.5 placement and decannulation of ECMO on 08/06/2024. PLAN: - Lipids: continue atorvastatin 40 mg PO daily - Antiplatelet: continue aspirin 81 mg PO daily; brilinta 90 mg BID - Triple therapy for one month (aspirin end date 08/27/24) followed by mary for 1 year. Atrial fibrillation with RVR (CMS/HCC) (HCC) Atypical atrial flutter (CMS/HCC) (HCC) - Anticoagulation: continue eliquis - Continue PO amiodarone 400 BID x 3 days, then 200 mg daily, consider discontinuing tomorrow to allow for beta kelly initiation Peripheral vascular disease (HCC) - US lower extremity arterial doppler 07/31/24: Bilateral SFA progressive occlusions with reconstitution of flow appear chronic, Right distal GAS AND OIL CHECKER occlusion, also likely chronic - 9 [place] Sheath removed 08/07/24 AVM (arteriovenous malformation) Melena - continue Protonix 40 mg daily - GI consulted - Discontinue octreotide - Continue to monitor and trend labs - Transfuse for Hemoglobin of >7 Compression fracture of T10 vertebra (HCC) - Incidental finding noted on admission CT 07/31/24 - Ortho-Spine consulted: no surgical intervention at this time Diabetes mellitus (HCC) - Continue sliding scale insulin Code Status: Full Code Disposition: IMU. Pending GDMT optimization. Continue daily PT/OT ordered. Active medical conditions, plan and recommendations were discussed in length with the patient. All the questions were answered. (This note was dictated using voice recognition speech to text software and may contain inadvertent recognition errors). Cruz Solomon MD Advanced Cardiopulmonary Therapies and Transplantation (ACTAT) * Paulo Harding MD - 08/18/2024 4:00 PM CDT HF Surgery Progress Note PMH: 69 yo female w/ PMH including HTN, DM, CAD and tobacco abuse who was transferred to [facility] for revascularization after LHC at [facility] revealed multivessel disease with severe L main disease. Other relevant events at OSH included cellulitis 2/2 to spider bite and hypoxic respiratory failure requiring bipap, afib RVR and possible new diagnosis of CHF (EF 45-50%). 08/06 High-risk successful LM-LAD PCI with SARAH x4 , complicated by PEA, emergent vaECMO, due to in-stent thrombosis 08/06 Impella 5.5 placement axillary R and vaECMO removal w/ art repair 08/10 YAQUELIN (1x MitraClip), reduction MR 3+ to 2+ 08/12 GI placed 5 clips for multiple angioectasias in the 2nd part of the duodenum (bleeding was observed). 08/15 impella decannulation Subjective: POD 3 after Impella decannnulation. SAGE drain at impella site removed yesterdy, today impella wound ok, no hematoma. Labs stable. CXR stable. A/P: - daily wound checks, impella site, vicki in place, removal in 3 weeks postop. - rest per cardio Objective Last Recorded Vitals Blood pressure (!) 102/46, pulse 62, temperature 36.6 ?C (97.8 ?F), temperature source Oral, resp. rate 22, height 1.6 m (5' 2.99"), weight 54.5 kg (120 lb 2.4 oz), SpO2 97%. Pertinent Labs : Lab ResultsComponent Value Date WBC 11.73 (H) 08/18/2024 POC V Hgb Tot 9.5 (L) 08/16/2024 Hgb 9.9 (L) 08/18/2024 POC A Hct (calc) 21.0 (L) 08/15/2024 POC V Hct (calc) 29.0 (L) 08/16/2024 Hct 30.8 (L) 08/18/2024 Plt Count 467 (H) 08/18/2024 Lab ResultsComponent Value Date POC V Na 130 (L) 08/16/2024 Sodium Lvl 137 08/18/2024 POC V K 4.5 08/16/2024 Potassium Lvl 4.0 08/18/2024 POC V Cl 102 08/16/2024 Chloride Lvl 101 08/18/2024 CO2 Lvl 29.8 08/18/2024 BUN 20 08/18/2024 Creatinine Lvl 0.94 08/18/2024 POC V Glu 158 (H) 08/16/2024 Glucose Lvl 120 (H) 08/18/2024 POC Glu 256 (H) 08/18/2024 Lab ResultsComponent Value Date Calcium Lvl 8.9 08/18/2024 Magnesium 2.04 08/18/2024 Phosphorus Lvl 3.7 08/18/2024 Lab ResultsComponent Value Date AST 30 08/18/2024 ALT 25 08/18/2024 Alkaline Phosphatase 123 (H) 08/18/2024 Lab ResultsComponent Value Date PTT 37.5 (H) 08/18/2024 Prothrombin Time (PT) 17.8 (H) 08/17/2024 INR 1.45 (H) 08/17/2024 Physical Exam:Constitutional: Interventions: She is sedated. HENT: Head: Atraumatic. Nose: Nose normal. Mouth/Throat: Mouth: Mucous membranes are moist. Eyes: Extraocular Movements: Extraocular movements intact. Conjunctiva/sclera: Conjunctivae normal. Cardiovascular: Rate and Rhythm: Normal rate and regular rhythm. Heart sounds: Normal heart sounds. Abdominal: General: Bowel sounds are normal. Palpations: Abdomen is soft. Skin: General: Skin is warm. Capillary Refill: Capillary refill takes less than 2 seconds. Neurological: General: No focal deficit present. Psychiatric: Behavior: Behavior is cooperative. Assessment & PlanTriple vessel coronary artery disease Acute non-ST elevation myocardial infarction (NSTEMI) (CMS/HCC) (HCC) Tachy-sen syndrome (CMS/HCC) (HCC) Tobacco use disorder Peripheral vascular disease (HCC) Normocytic anemia Compression fracture of T10 vertebra (HCC) New onset of congestive heart failure (CMS/HCC) (HCC) Atrial fibrillation with RVR (CMS/HCC) (HCC) Prediabetes Diabetes mellitus (HCC) Coronary artery disease Cardiac arrest Shock (CMS/HCC) (HCC) Nonrheumatic mitral valve regurgitation Melena#Multivessel CAD with left main dx. #acute hypoxemic respiratory failure #Pulmonary edema #preop pulmonary edema #CHF #cellulitis #afib RVR #dm2 #htn #tobacco use AVM (arteriovenous malformation) Atypical atrial flutter (CMS/HCC) (HCC) Chronic systolic heart failure (CMS/HCC) (HCC) Current Diet: Adult Diet Heart Healthy Pavan Mcguire MD08/18/24 Attending Attestation:I have seen and examined the patient with Pavan Mcguire on 08/18/24 I have reviewed all the clinical information, lab investigations and imaging data. I agree with the above examination findings, assessment, and plan. I was present and supervised. Paulo Harding MD * [facility] Layo Najera NP - 08/18/2024 10:04 AM CDT F Progress Note Date: 08/18/2024 HPI/Hospital course Nichelle Hampton is a 69 y.o. female with past medical history of hypertension, diabetes mellitus (on no meds), reported history of coronary artery disease and tobacco use, was transferred from [facility] after LHC revealed severe left main disease and multivessel disease. She was originally admitted for hand cellulitis after a spider bite, but during that hospital stay she had hypoxic respiratory failure requiring BiPAP, NSTEMI, possibly newly diagnosed CHF (EF 45-50%), and Afib w/ RVR. She underwent a MARQUES w/ cardioversion. LHC and RHC on 07/31/23 which showed normal filling pressures, LHC which showed 80% mid to distal LM lesion extending into the ostium of LAD, 60-70% mid LAD, diffuse LCx and OM disease, and 70-80% proximal to mid RCA disease. She was transferred to [facility] for revascularizaton. On 08/06 she underwent PCI to LM-LAD with SARAH x4 complicated by cardiac arrest x2 where she was cannulated with VA ECMO. Found to have acute stent thrombosis s/p PTCA. 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 S/p ECMO decannulation 08/06. S/p mitraclip 08/10. Patient deemed not a candidate for advanced therapies due to extensive PAD. Impella and pressor support were weaned. Impella was decannulated 08/15. Patient transferred to IMU 08/16. Hospital course complicated by GI bleed. GI consulted. S/p EGD 08/12 and patient found to have bleeding AVMs s/p 5 clips, epi injection, and hemostatic powder/spray with hemostasis achieved. SAGE drain removed by HF Surgery 08/17/24. Subjective: Interval Events: no overnight acute event, participating with PT/OT, sitting upright in bedside chair, tolerating PO intake Objective: BP (!) 132/58 (BP Location: Left arm) | Pulse 65 | Temp 36.6 ?C (97.9 ?F) (Oral) | Resp 20 | Ht 1.6 m (5' 2.99") | Wt 54.5 kg (120 lb 2.4 oz) | SpO2 95% | BMI 21.29 kg/m? Intake/Output Summary (Last 24 hours) at 08/18/2024 1004 Last data filed at 08/18/2024 0800 Gross per 24 hour Intake 310 ml Output 750 ml Net -440 ml Physical Exam: General Appearance: in no acute distress HEENT: Normocephalic atraumatic, pupils equal/round/reactive Neck: Supple, -JVD Respiratory: Clear to auscultation bilaterally, no wheezes/rales/rhonchi, non-labored, symmetrical chest wall expansion and good air entry Cardiovascular: Regular rate and regular rhythm, no lower peripheral edema Gastrointestinal: soft, non-tender, non-distended, active bowel sounds Musculoskeletal: No obvious deformity. moves all 4 extremities Integumentary: Warm, Dry, [place]. Intact. No jaundice Neurologic: Aa&ox4. follows all commands Psychiatric: Cooperative, Appropriate mood & affect Assessment & Plan Cardiac arrest Shock ([facility]) ([facility]) Nonrheumatic mitral valve regurgitation - S/p PCI x4 to LM-LAD c/b PEA arrest with 15 minutes of CPR and ECMO cannulation, finding of acute stent thrombosis s/p PTCA > with subsequent Impella 5.5 placement and decannulation of ECMO on 08/06/2024 - Vasopressors weaned off - Moderate MR noted on TTE and at bedside with large V waves on wedge waveform - S/p YAQUELIN on 08/10/24 - d/c [place] Lei catheter - s/p SAGE drain removal by HF Surgery 08/17/24 PLAN: - Patient not a candidate for advanced therapies given extensive PAD. No plan for re-insertion of Impella after removal - Repeat TTE on 08/19/24 AM Chronic systolic heart failure ([facility]) ([facility]) PLAN: - Consider starting low dose beta kelly tomorrow if tolerated. Hold for now due to bradycardia HR 50's - GDMT: Addition of SUSIE/Entresto/MRA to follow pending clinical course - Start Losartan 12.5 mg daily 08/17/24 - Continue Farxiga 10 mg daily - Diuretic: continue Lasix PO 40 mg BID as maintenance diuretics Triple vessel coronary artery disease Coronary artery disease Acute non-ST elevation myocardial infarction (NSTEMI) (CMS/HCC) ([facility]) - S/p PCI x4 to LM-LAD c/b PEA arrest with 15 minutes of CPR and ECMO cannulation, > with subsequent Impella 5.5 placement and decannulation of ECMO on 08/06/2024. PLAN: - Lipids: continue atorvastatin 40 mg PO daily - Antiplatelet: continue aspirin 81 mg PO daily; brilinta 90 mg BID - Triple therapy for one month (aspirin end date 08/27/24) followed by elirandall for 1 year. Atrial fibrillation with RVR (CMS/HCC) ([facility]) Atypical atrial flutter (CMS/HCC) ([facility]) - Anticoagulation: continue eliquis - Continue PO amiodarone 400 BID x 3 days, then 200 mg daily, consider discontinuing tomorrow to allow for beta kelly initiation Peripheral vascular disease ([facility]) - US lower extremity arterial doppler 07/31/24: Bilateral SFA progressive occlusions with reconstitution of flow appear chronic, Right distal GAS AND OIL CHECKER occlusion, also likely chronic - 9 [place] Sheath removed 08/07/24 AVM (arteriovenous malformation) Melena - continue Protonix 40 mg daily - GI consulted - Discontinue octreotide - Continue to monitor and trend labs - Transfuse for Hemoglobin of >7 Compression fracture of T10 vertebra ([facility]) - Incidental finding noted on admission CT 07/31/24 - Ortho-Spine consulted: no surgical intervention at this time Diabetes mellitus ([facility]) - Continue sliding scale insulin Code Status: Full Code Disposition: IMU. Pending GDMT optimization. Continue daily PT/OT ordered. Repeat TTE ordered. Steve Najera NP Advanced Cardiopulmonary Therapies and Transplantation (ACTAT) Patient rounded on and plan of care discussed with Dr. Campbell at the bedside. CALL [phone] or [phone] to reach [facility] OR Via Secure Chat. * Katherine Tan GAS AND OIL CHECKER - 08/17/2024 3:04 PM CDT Treatment Session Note Patient Name: Nichelle Hampton Today's Date: 08/17/2024 Preferred Language: Italian Assessment & Plan Assessment: Pt progressing with functional mobility ambulating increased distances in hallway using RW requiring CGA-min A. No significant LOB noted this date but remains a fall risk due to mild balance instability. She remains below baseline. Pt will continue to benefit from skilled PT to maximize independence with functional mobility, increase activity tolerance, and progress towards goals. Plan: Cont poc Subjective "Yeah ill get up" Precautions: UE Weight Bearing Status: FWB LE Weight Bearing Status: FWB Medical Precautions: TLSO OOB; spinal Braces Applied: TLSO Pain: none Objective General Visit Information: PT Last Visit PT Received On: 08/17/24 General Family/Caregiver Present: No Others Present: MARICARMEN Mcneal RN cleared PT session. Pt received supine and agreeable to participate. Completed LOG ROLL xmod a and donned TLSO. VSS on RA, no lines. Stood using RW and reported mild symptoms of dizziness. Upon standing requested to use RR. Amb to toilet to void. Pt able to perform pericare while standing and CGA to maintain balance. Upon finishing with pericare pt endorsed dizziness, completed hand hygiene and returned to the BSC to rest and check BP. MAP soft but 64. Stood and maintained aprox 2 minutes to acclimate and BP reassessed and WNL. Progressed to ambulating in hallway (see gait section). Pt reporting RLE fatigue and need to sit. Eventually returned to room and sat in bedside chair. Pt with complaints of mild fatigue. Remained sitting up in chair. VSS, all needs met. RN notified. Activity Tolerance: Endurance: Tolerates 10 - 20 min exercise with multiple rests Sitting Balance: Sits without support for more than 30 sec Early Mobility/Exercise Safety Screen: Proceed with mobilization - No exclusion criteria met CognitionBehavior/Cognition: Alert, Cooperative, Pleasant mood Orientation Level: Oriented X4 TreatmentTherapeutic activity: Therapeutic Activity Therapeutic Activity Time Entry: 13 Therapeutic Activity 1: bed mobility Therapeutic Activity 2: donned TLSO Therapeutic Activity 3: education on spinal precautions Therapeutic Activity 4: toileting Therapeutic Activity 5: transfers Bed Mobility: Bed Mobility 1:Level of Assistance 1: Partial/Mod assistance Bed Mobility Comments 1: MOD A x1 Bed Mobility To/From: Supine to sit on EOB Transfers: Transfers 1: Technique 1: Via walking Level of Assistance 1: Supervision/touching assistance Trials/Comments 1: CGA Transfer To/From: [id number]-Rib, Bed Assistive Devices And Adaptive Equipments: Walker, front-wheeled Transfers 2:Level of Assistance 2: Partial/Mod assistance Trials/Comments 2: MIN A from low commode Transfer To/From: Zhi-qh-Erbyw/Lsmmo-ps-Akt, Toilet Assistive Devices And Adaptive Equipments: Walker, front-wheeled Gait training: Gait Training Time Entry: 10 Gait Training Activity 1:Distance (enter in feet): 10 x2 Gait Training Activity 1: Indoor surface Assistive Devices And Adaptive Equipments: Walker, front-wheeled Level of Assistance 1: Supervision/touching assistance Gait Training Activity 1 Comment: slow mason, decreased step length, narrow JULIETA, cues to maintain upright gaze, crossing over her own feet at times, no significant LOB but mild instability noted, seated rest break due to fatigue, +1 for chair follow Gait Training Activity 2:Distance (enter in feet): 120 + 100 Assistive Devices And Adaptive Equipments: Walker, front-wheeled Level of Assistance 2: Supervision/touching assistance Gait Training Activity 2 Comment: CGA AM-PAC Basic Mobility:AM-PAC Basic Mobility Inpatient Turning in bed without bedrails: A Little Lying on back to sitting on edge of flat bed: A Lot Bed to chair: A Little Standing up from chair: A Little Walk in room: A Little Climbing 3-5 stairs: A Lot Mobility Inpatient Raw Score: 16 JH-HLM Goal: 5 Mobility: Highest Level of Mobility Performed (JH-HLM)JH-HLM Goal: 5 Highest Level of Mobility Performed (JH-HLM): Walked 25 feet or more (i.e. walked outside of room) Patient Education:Education Documentation No documentation found. Education Comments No comments found. Goals:Encounter Goals Encounter Goals (Active) Patient will progress bed mobility to GG Code 6 - Independent, using without adaptive aid, by discharge. Start: 08/10/24 Expected End: 09/21/24 The patient will progress transfers to GG Code 6 - Independent using no device vs LRAD, by discharge. Start: 08/10/24 Expected End: 09/21/24 The patient will ambulate 150+ feet with no device vs LRAD and GG Code 6 - Independent, by discharge. Start: 08/10/24 Expected End: 09/21/24 Supervising Physical Therapist: Nixon Castanon PT Patient progress towards current goals and plan of care was discussed in person with supervising Physical Therapist. Treatment Note: If this is the last documented treatment, then it will signify discharge from acute care prior to discharge from the therapy service and will serve as the discharge summary. Katherine Tan PTA * George Carias RN - 08/17/2024 11:56 AM CDT CASE MANAGEMENT ROUTINE DISCHARGE PLAN NOTE LOS: 17 Barriers to Discharge: s/p PCO, SAGE drain management, pending nutritional consult, monitoring H&H, continue working with PT/OT DISCHARGE PLAN A: home with HH/ OP PT DISCHARGE PLAN B: IPR MILENA: 72 hours * Quirino Rodarte MD - 08/17/2024 10:20 AM CDT [facility] Query Clarification Progress Note As related to the inpatient hospital stay starting on 07/31/2024, 2:39 AM. Encephalopathy is documented in the Medical Record. Please specify type PROVIDER RESPONSE TEXT: Metabolic encephalopathy Query Created By : Laura Cross, 08/08/2024, 6:39 AM * Steve Najera NP - 08/17/2024 9:55 AM CDT AHF Progress Note Date: 08/17/2024 HPI/Hospital course Nichelle Hampton is a 69 y.o. female with past medical history of hypertension, diabetes mellitus (on no meds), reported history of coronary artery disease and tobacco use, was transferred from [facility] after LHC revealed severe left main disease and multivessel disease. She was originally admitted for hand cellulitis after a spider bite, but during that hospital stay she had hypoxic respiratory failure requiring BiPAP, NSTEMI, possibly newly diagnosed CHF (EF 45-50%), and Afib w/ RVR. She underwent a MARQUES w/ cardioversion. LHC and RHC on 07/31/23 which showed normal filling pressures, LHC which showed 80% mid to distal LM lesion extending into the ostium of LAD, 60-70% mid LAD, diffuse LCx and OM disease, and 70-80% proximal to mid RCA disease. She was transferred to [facility] for revascularizaton. On 08/06 she underwent PCI to LM-LAD with SARAH x4 complicated by cardiac arrest x2 where she was cannulated with VA ECMO. Found to have acute stent thrombosis s/p PTCA. 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 S/p ECMO decannulation 08/06. S/p mitraclip 08/10. Patient deemed not a candidate for advanced therapies due to extensive PAD. Impella and pressor support were weaned. Impella was decannulated 08/15. Patient transferred to IMU 08/16. Hospital course complicated by GI bleed. GI consulted. S/p EGD 08/12 and patient found to have bleeding AVMs s/p 5 clips, epi injection, and hemostatic powder/spray with hemostasis achieved. Subjective: Interval Events: no overnight acute event Objective: BP (!) 117/55 | Pulse 60 | Temp 36.6 ?C (97.9 ?F) | Resp 19 | Ht 1.6 m (5' 2.99") | Wt 50.5 kg (111 lb 5.3 oz) | SpO2 96% | BMI 19.73 kg/m? Intake/Output Summary (Last 24 hours) at 08/17/2024 0955 Last data filed at 08/17/2024 0600 Gross per 24 hour Intake 1380 ml Output 1971 ml Net -591 ml Physical Exam: General Appearance: in no acute distress HEENT: Normocephalic atraumatic, pupils equal/round/reactive Neck: Supple, -JVD Respiratory: Clear to auscultation bilaterally, no wheezes/rales/rhonchi, non-labored, symmetrical chest wall expansion and good air entry Cardiovascular: Regular rate and regular rhythm, no lower peripheral edema Gastrointestinal: soft, non-tender, non-distended, active bowel sounds Musculoskeletal: No obvious deformity. moves all 4 extremities Integumentary: Warm, Dry, [place]. Intact. No jaundice Neurologic: Aa&ox4. follows all commands Psychiatric: Cooperative, Appropriate mood & affect Assessment & Plan Cardiac arrest Shock ([facility]) ([facility]) Nonrheumatic mitral valve regurgitation - S/p PCI x4 to LM-LAD c/b PEA arrest with 15 minutes of CPR and ECMO cannulation, finding of acute stent thrombosis s/p PTCA > with subsequent Impella 5.5 placement and decannulation of ECMO on 08/06/2024 - Vasopressors weaned off - Moderate MR noted on TTE and at bedside with large V waves on wedge waveform - S/p YAQUELIN on 08/10/24 - d/c [place] Lei catheter - s/p SAGE drain removal by HF Surgery 08/17/24 - Patient not a candidate for advanced therapies given extensive PAD. No plan for re-insertion of Impella after removal Chronic systolic heart failure ([facility]) ([facility]) - Consider starting low dose beta kelly tomorrow if tolerated. Hold for now due to bradycardia HR 50's - GDMT: Addition of SUSIE/Entresto/MRA to follow pending clinical course - Start Losartan 12.5 mg daily 08/17/24 - Continue Farxiga 10 mg daily - Diuretic: continue Lasix PO 40 mg BID as maintenance diuretics Triple vessel coronary artery disease Coronary artery disease Acute non-ST elevation myocardial infarction (NSTEMI) ([facility]) ([facility]) - S/p PCI x4 to LM-LAD c/b PEA arrest with 15 minutes of CPR and ECMO cannulation, > with subsequent Impella 5.5 placement and decannulation of ECMO on 08/06/2024. - Lipids: continue atorvastatin 40 mg PO daily - Antiplatelet: continue aspirin 81 mg PO daily; brilinta 90 mg BID - Triple therapy for one month (aspirin end date 08/27/24) followed by elithu and luis eta for 1 year. Atrial fibrillation with RVR ([facility]) ([facility]) Atypical atrial flutter ([facility]) ([facility]) - Anticoagulation: continue eliquis - Continue PO amiodarone 400 BID x 3 days, then 200 mg daily, consider discontinuing tomorrow to allow for beta kelly initiation Peripheral vascular disease (HCC) - US lower extremity arterial doppler 07/31/24: Bilateral SFA progressive occlusions with reconstitution of flow appear chronic, Right distal GAS AND OIL CHECKER occlusion, also likely chronic - 9 [place] Sheath removed 08/07/24 AVM (arteriovenous malformation) Melena - continue Protonix 40 mg daily - GI consulted - Discontinue octreotide - Continue to monitor and trend labs - Transfuse for Hemoglobin of >7 Compression fracture of T10 vertebra (HCC) - Incidental finding noted on admission CT 07/31/24 - Ortho-Spine consulted: no surgical intervention at this time Diabetes mellitus (HCC) - Continue sliding scale insulin Code Status: Full Code Disposition: IMU. SAGE drain removed today. Start Losartan 12.5 mg daily and PT/OT ordered. Steve Najera NP Advanced Cardiopulmonary Therapies and Transplantation (ACTAT) Patient rounded on and plan of care discussed with Dr. Moreno at the bedside. CALL [phone] or [phone] to reach [facility] OR Via Secure Chat. * Sharyn Naranjo MD - 08/17/2024 9:53 AM CDT MAXIME U Progress Note Date: 08/17/2024 Chief Complaint: No chief complaint on file. History of Present Illness: Nichelle Hampton is a 69 y.o. female with past medical history of hypertension, diabetes mellitus (on no meds), reported history of coronary artery disease and tobacco use, was transferred from [facility] after LHC revealed severe left main disease and multivessel disease. She was originally admitted for hand cellulitis after a spider bite, but during that hospital stay she had hypoxic respiratory failure requiring BiPAP, NSTEMI, possibly newly diagnosed CHF (EF 45-50%), and Afib w/ RVR. She underwent a MARQUES w/ cardioversion. LHC and RHC on 07/31/23 which showed normal filling pressures, LHC which showed 80% mid to distal LM lesion extending into the ostium of LAD, 60-70% mid LAD, diffuse LCx and OM disease, and 70-80% proximal to mid RCA disease. She was transferred to [facility] for revascularizaton. On 08/06 she underwent PCI to LM-LAD with SARHA x4 complicated by cardiac arrest x2 where she was cannulated with VA ECMO. Found to have acute stent thrombosis s/p PTCA. 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 S/p ECMO decannulation 08/06. S/p mitraclip 08/10. Patient deemed not a candidate for advanced therapies due to extensive PAD. Impella and pressor support were weaned. Impella was decannulated 08/15. Patient transferred to IMU 08/16. Hospital course complicated by GI bleed. GI consulted. S/p EGD 08/12 and patient found to have bleeding AVMs s/p 5 clips, epi injection, and hemostatic powder/spray with hemostasis achieved. Subjective:Transfer from ICU yesterday Received 1 unit of blood yesterday for Hb 7.2 Objective: Physical Exam:BP (!) 117/55 | Pulse 60 | Temp 36.6 ?C (97.9 ?F) | Resp 19 | Ht 1.6 m (5' 2.99") | Wt 50.5 kg (111 lb 5.3 oz) | SpO2 96% | BMI 19.73 kg/m? Intake/Output Summary (Last 24 hours) at 08/17/2024 0953Last data filed at 08/17/2024 0600 Gross per 24 hour Intake 1380 ml Output 1971 ml Net -591 ml General: alert and oriented, not in distress Head/mouth: oral mucosa moist, normal conjuntiva, normal eye movements Neck; supple, normal thyroid, no JVD Chest: no lesions, normal excursion. SAGE drain at the site of prior impella Lungs: Clear to auscultation bilateral, no rales, no wheezes Heart: RHYTHM: RRR, no gallop, no rub, no murmur Abdomen: soft, non tender, non distended, BS+ Extremities: no Lower extremity edema, Laboratory Data: Normal electrolytes, normal renal function Normal LFTs WBC 14 trending up, Hb 10, plat 372 Assessment/Plan: Patient Active Problem ListDiagnosis New onset of congestive heart failure (CMS/HCC) (HCC) Cellulitis Atrial fibrillation with RVR (CMS/HCC) (HCC) Prediabetes Elevated troponin Hypertension Tobacco use Coronary artery disease Hyponatremia Hyperglycemia Pulmonary edema cardiac cause (CMS/HCC) (HCC) Triple vessel coronary artery disease Acute non-ST elevation myocardial infarction (NSTEMI) (CMS/HCC) (HCC) Tachy-sen syndrome (CMS/HCC) (HCC) Tobacco use disorder Peripheral vascular disease (HCC) Normocytic anemia Diabetes mellitus (HCC) Compression fracture of T10 vertebra (HCC) Cardiac arrest ([facility]) Shock (CMS/HCC) ([facility]) Nonrheumatic mitral valve regurgitation Melena AVM (arteriovenous malformation) Atypical atrial flutter (CMS/HCC) (HCC) Chronic systolic heart failure (CMS/HCC) ([facility]) Plan:--GDMT: farxiga 10 mg daily, start losartan 12.5 mg daily, titrate as tolerated by BP. We will not start BB since she is bradycardic, later consider to start aldactone. --continue amiodarone eunice --continue lasix 40 mg BID --continue pantoprazole 40 mg daily --SAGE drain management as per HF surgery --check echocardiogram to evaluate LV function post-impella removal --continue apixaban for a fib, per ICU notes, plan to continue with triple therapy for one month (Aspirin last date 08/27/24) followed by apixaban and brillinta for 1 year --needs close follow up of GIB --PT/OT --pt not a candidate for advance heart failure therapies due to severe Peripheral vascular disease. Discharge pending tolerance to GDMT and PT recs. Active medical conditions, plan and recommendations were discussed in lengthwith the patient. All the questions were answered. Complex Medical Decision Making in this encounter I spent 35 minutes preparing to see the patient including review of tests, obtaining history from the patient, performing exam, counseling and educating the patient, reconciling medication and reviewing adherence and interactions, ordering meds and tests and documenting clinical information in the electronic record Sharyn Naranjo MD * Rossy Fowler NP - 08/16/2024 6:24 PM CDT Patient transferred to [facility] this afternoon. Resting comfortably in bed. No complaints. Denies CP/SOB, N/V/D. 1 unit pRBC transfusing. Not on any drips. VS: HR 60, BP 127/72, sats 96% on RA. Right chest incision and bilateral groin incisions with dressings in place, all C/D/I. All questions answered. * Francia Tariq, OT - 08/16/2024 4:08 PM CDT Treatment Session Note Patient Name: Nichelle Hampton Today's Date: 08/16/2024 Preferred Language: Italian Assessment & Plan Assessment: Pt now being seen s/p Impella 5.5 extraction 08/15. Pt with no major functional change and therefore, OT POC unchanged. Pt noted with increased tolerance for OOB FA this date. Pt required decreased assistance for household ambulation overall though noted to require increased assist when anxious. Pt will continue to benefit from skilled OT services to increase overall strength and FA tolerance for ADL independence. Precautions: UE Weight Bearing Status: (NWB RUE) Medical Precautions: TLSO OOB; spinal Post-Surgical Precautions: RUE impella Braces Applied: TLSO Subjective "My knees feel like they're about to give out." Objective Pt presented in semi-livingston's, agreeable to OT tx. Pt transferred EOB Mod A following strict spinal precautions via log roll. TLSO donned. Pt stood and ambulated to sink in room CGA RW. Pt stood at sink for g/h, no LOB noted. Pt brushed teet, washed face, and washed hands set up a. Pt ambulated to restroom CGA RW and toilet transfer performed Min A using L grab bar (lower surface). Pt required Mod A for toileting. Upon exiting restroom, pt noted to become more unsteady and anxious with mobility. BLE noted to be slightly buckling. Recliner chair brought to pt. Pt transferred to recliner Min A RW. Pt transferred to bed CGA RW and sit>sup Mod A. TLSO doffed. Pt left in semi-livingston's, VSS, all needs met. Self Care (ADL): Self Care/Home Management (ADLs) Time Entry: 40 Grooming Assistance: Setup/clean-up assistance Toileting Assistance: Partial/Mod assistance Mobility/Transfers: Bed Mobility Bed Mobility Bed Mobility: Yes Bed Mobility 1 Level of Assistance 1: Partial/Mod assistance Bed Mobility To/From: Supine to sit on EOB Transfer Transfers Transfer: Yes Transfer 1 Level of Assistance 1: Supervision/touching assistance Transfer To/From: Ufb-ji-Jeqpn/Faqdp-uu-Mvo, Bed Assistive Devices And Adaptive Equipments: Walker, front-wheeled Transfers 2 Level of Assistance 2: Partial/Mod assistance Transfer To/From: Two-sa-Zxpvc/Exjwb-va-Dlq, Toilet Treatment Self-Care: Self Care/Home Management (ADLs) Time Entry: 40 Grooming Assistance: Setup/clean-up assistance Toileting Assistance: Partial/Mod assistance Bed Mobility: Bed Mobility Bed Mobility: Yes Bed Mobility 1 Level of Assistance 1: Partial/Mod assistance Bed Mobility To/From: Supine to sit on EOB Transfers: Transfers Transfer: Yes Transfer 1 Level of Assistance 1: Supervision/touching assistance Transfer To/From: Emo-iz-Thlzs/Onhdk-ik-Vqa, Bed Assistive Devices And Adaptive Equipments: Walker, front-wheeled Transfers 2 Level of Assistance 2: Partial/Mod assistance Transfer To/From: Avr-uh-Njhod/Afmfd-qm-Wem, Toilet Mobility Highest Level of Mobility Performed (JH-HLM): Walked 10 steps or more (i.e. walked to restroom) Goals: Encounter Goals Encounter Goals (Active) Pt will perform OOB ADL routine with no rest breaks required for increased FA tolerance Start: 08/08/24 Expected End: 09/05/24 Pt will perform functional transfers Mod I Start: 08/08/24 Expected End: 09/05/24 Pt will perform toileting Mod I Start: 08/08/24 Expected End: 09/05/24 Treatment Note: If this is the last documented treatment, then it will signify discharge from acute care prior to discharge from the therapy service and will serve as the discharge summary. Francia Tariq OT * Haylee Jaffe MD PhD - 08/16/2024 3:06 PM CDT Hemotherapy Progress Note HPI: 69 yo female w/ PMH including HTN, DM, CAD and tobacco abuse who was transferred to [facility] for revascularization after LHC at [facility] revealed multivessel disease with severe L main disease. Other relevant events at OSH included cellulitis 2/2 to spider bite and hypoxic respiratory failure requiring bipap, afib RVR and possible new diagnosis of CHF (EF 45-50%). Went for PCI x4 on 08/06 c/b PEA arrest s/p ECMO s/p Impella 5.5 placement. SUBJECTIVE: Impella explant 08/15, transferred to IMU S/p VA ECMO Anticoagulation held post Impella explant Apixaban started 08/16 for post-ECMO ppx per HF team S/p mitral clip on 08/10 GI bleeding, S/p EGD with bleeding AVMs in the second portion of Duodenum s/p epinephrine, endo clips and application of NEX powder (08/12/24) On ASA and Brilinta Hemotherapy will sign off, please reach out to our service with any questions or should the patients status change. OBJECTIVE: EXAM BP (!) 113/51 | Pulse 59 | Temp 36.4 ?C (97.5 ?F) | Resp 20 | Ht 1.6 m (5' 2.99") | Wt 60.1 kg (132 lb 7.9 oz) | SpO2 93% | BMI 23.48 kg/m? Gen: Comfortable, awake and alert Neuro: No focal deficits appreciated HEENT: PERRL; EOMI; No scleral icterus CV/Pulses: RRR; 2+ peripheral pulses Pulm: on HFNC symmetric chest rise GI: Soft; NTND : Deferred MS: Tone intact Skin/Ext: No changes in lesions; 1+ pitting edema LABS: Lab Results Component Value Date Albumin Lvl 2.7 (L) 08/16/2024 Albumin Lvl 2.9 (L) 08/15/2024 Protein 5.3 (L) 08/16/2024 Protein 5.6 (L) 08/15/2024 ALT 33 08/16/2024 ALT 48 (H) 08/15/2024 AST 26 08/16/2024 AST 35 08/15/2024 Bilirubin Total 0.44 08/16/2024 Bilirubin Total 0.75 08/15/2024 WBC 12.30 (H) 08/16/2024 WBC 12.45 (H) 08/15/2024 POC V Hgb Tot 9.5 (L) 08/16/2024 Hgb 7.2 (L) 08/16/2024 Plt Count 264 08/16/2024 Plt Count 262 08/15/2024 INR 1.03 08/16/2024 INR 0.98 08/15/2024 PTT 28.8 08/16/2024 PTT 34.8 08/15/2024 LDH Tot 386 (H) 08/16/2024 LDH Tot 466 (H) 08/15/2024 Hgb, Plasma 10 08/16/2024 Hgb, Plasma 40 08/15/2024 Ferritin Lvl 481 (H) 08/09/2024 Results from last 7 days Lab Units 08/16/24 0048 08/15/24 0926 08/15/24 0304 INR 1.03 0.98 1.07 PTT Seconds 28.8 34.8 36.2* IMAGING: Images were reviewed. ASSESSMENT AND PLAN: 69 yo female w/ PMH including HTN, DM, CAD and tobacco abuse who was transferred to [facility] for revascularization after LHC at [facility] revealed multivessel disease with severe L main disease. Other relevant events at OSH included cellulitis 2/2 to spider bite and hypoxic respiratory failure requiring bipap, afib RVR and possible new diagnosis of CHF (EF 45-50%). Went for PCI x4 to LM-LAD c/b PEA arrest with 15 minutes of CPR and ECMO cannulation, finding of acute stent thrombosis s/p PTCA > with subsequent Impella 5.5 placement and decannulation of ECMO on 08/06/2024. Anemia/RBC:GI bleeding resolved 1u pRBCs 08/04, 08/06 in OR, 2 on 08/07 and 08/11 Has anemia of chronic disease with underlying GALEN Getting IV iron and PO folic acid Blood Type: O Pos ; Antibody screen: negative Transfuse if Hb < 7/8 mmHg/dL. Platelet:Count is WNL, stable On Asa and Brillinta Transfuse if Platelet count < 20K or <50K if actively bleeding. Coagulation:PT/INR is normal PTT WNL Fibrinogen WNL, transfuse cryoprecipitate for fibrinogen <150 mg/dL Anticoagulation for post VA ECMO:Apixaban per HF team Monitor for bleeding. D-dimer, PFH, LDH all stable. Continue to monitor. * Marisa Neri RN - 08/16/2024 1:55 PM CDT CASE MANAGEMENT ROUTINE DISCHARGE PLAN NOTE LOS: 16 Barriers to Discharge: Barrier to Discharge: MV CAD. IV abx., amio, . 08/15 Impella removal. DISCHARGE PLAN A/B: Home MILENA: 1 week. * Nixon Castanon, PT - 08/16/2024 10:15 AM CDT ReEvaluation and Treatment Note Patient Name: Nichelle Hampton Today's Date: 08/16/2024 Preferred Language: Italian Assessment & Plan Pt now s/p Impella decannulation. Pt progressing with functional mobility ambulating increased distances in hallway using RW requiring CGA-min A. Pt exhibited 1 slight LOB when turning due to RLE fatigue 2/2 chronic OA. She remains below baseline. Pt will continue to benefit from skilled PT to maximize independence with functional mobility, increase activity tolerance, and progress towards goals. Assessment: Prognosis: Good Barriers to Discharge: Medical diagnosis Medical Staff Made Aware: Yes Plan: Treatment Plan/Goals Established with Patient/Caregiver: Yes Treatment/Interventions: Bed mobility training, Caregiver training, Functional activities, Gait training, Neuromuscular re-education, Patient education, Therapeutic exercises, Transfer training PT Plan: Skilled PT PT Frequency: 3-4 times per week until discharge PT Discharge Recommendations: Home health PT, Outpatient PT PT Recommended Transfer Status: Assistive equipment (Comment) (RW) Subjective "My knee is like that cause of the weather change" Current Problem: Per EMR: "69 yo female w/ PMH including HTN, DM, CAD and tobacco abuse who was transferred to [facility] for revascularization after LHC at [facility] revealed multivessel disease with severe L main disease. Other relevant events at OSH included cellulitis 2/2 to spider bite and hypoxic respiratory failure requiring bipap, afib RVR and possible new diagnosis of CHF (EF 45-50%). Went for PCI x4 on 08/06 c/b PEA arrest s/p ECMO s/p Impella 5.5 placement." S/p Impella removal 08/15/24 Pain: 0/10 Home Living: Type of Home: House Lives With: Son Home Adaptive Equipment: None Home Layout: One level Prior Level of Function: Level of Nance: Other (Comment) (Independent, no device) ADL Assistance: Independent Objective General Visit Information: RN cleared PT session. Pt received sitting up in chair, with TLSO on. Agreeable to PT. Connected to swan, peripheral IV, and central line. VSS on 2 L NC. Performed seated Ble therex while lines were prepped. Stood using RW and denied symptoms. Progressed to ambulating in hallway (see gait section). Pt reporting RLE fatigue from chronic OA. Returned to room and sat in bedside chair. Pt with complaints of mild fatigue. Remained sitting up in chair. Lines intact, VSS, all needs met. RN notified. Precautions: UE Weight Bearing Status: FWB LE Weight Bearing Status: FWB Medical Precautions: must wear TLSO when OOB Braces Applied: TLSO Cognition: Overall Cognitive Status: Within Functional Limits Behavior/Cognition: Alert, Cooperative Orientation Level: Oriented X4 General Assessments: Sensation Sensation Light Touch: RLE Intact, LLE Intact Coordination Coordination Movements are Fluid and Coordinated: Yes Balance- Sitting Level of Assistance: Supervision/touching assistance (SBA) Balance- Standing Static Standing-Level of Assistance: Supervision/touching assistance (SBA/CGA) Functional Assessments: Transfers Transfers 1: Level of Assistance 1: Supervision/touching assistance, Partial/Mod assistance (CGA-min A) Transfer To/From: Twv-ic-Zmakz/Eyhft-hq-Ygi Assistive Devices And Adaptive Equipments: Walker, front-wheeled Extremity Assessments:Right Lower Extremity RLE Assessment RLE Assessment: Within Functional Limits Left Lower Extremity LLE AssessmentLLE Assessment: Within Functional Limits Overall Lower Extremity/Trunk ToneOverall Lower Extremity/Trunk Tone Left Lower Extremity: Normal Right Lower Extremity: Normal TreatmentTherapeutic activity: Therapeutic Activity Therapeutic Activity Time Entry: 10 Transfers: Transfers 1:Level of Assistance 1: Supervision/touching assistance, Partial/Mod assistance (CGA-min A) Transfer To/From: Tfq-zg-Hdorc/Wpqbr-od-Kkn Assistive Devices And Adaptive Equipments: Walker, front-wheeled Gait training: Gait Training Time Entry: 15 Gait Training Activity 1:Distance (enter in feet): 80', 80' Gait Training Activity 1: Indoor surface Assistive Devices And Adaptive Equipments: Walker, front-wheeled Level of Assistance 1: Supervision/touching assistance, Partial/Mod assistance (CGA-min A) Gait Training Activity 1 Comment: slow mason, decreased step length, cues to maintain upright gaze, 1 slight LOB when turning due pt reporting R knee "giving out" requiring min A to correct, seated rest break due to fatigue, +1 for chair follow AM-PAC Basic Mobility:Turning in bed without bedrails: A Little Lying on back to sitting on edge of flat bed: A Little Bed to chair: A Little Standing up from chair: A Little Walk in room: A Little Climbing 3-5 stairs: A Little Mobility Inpatient Raw Score: 18 JH-HLM Goal: 6 Mobility: Highest Level of Mobility Performed (JH-HLM)Walked 25 feet or more (i.e. walked outside of room) Patient Education:Education Documentation No documentation found. Education Comments No comments found. Goal:Encounter Goals Encounter Goals (Active) Patient will progress bed mobility to GG Code 6 - Independent, using without adaptive aid, by discharge. Start: 08/10/24 Expected End: 09/21/24 The patient will progress transfers to GG Code 6 - Independent using no device vs LRAD, by discharge. Start: 08/10/24 Expected End: 09/21/24 The patient will ambulate 150+ feet with no device vs LRAD and GG Code 6 - Independent, by discharge. Start: 08/10/24 Expected End: 09/21/24 Treatment Note: If this is the last documented treatment, then it will signify discharge from acute care prior to discharge from the therapy service and will serve as the discharge summary. Nixon Castanon PT * CHASTITY Davis-INSTRUMENTS SALES REPRESENTATIVE - 08/16/2024 8:30 AM CDT Images from the original note were not included. [facility] INSTRUMENTS SALES REPRESENTATIVE DYSPHAGIA TREATMENT Patient Name: Nichelle Hampton Today's Date: 08/16/2024 Time In: 0830 Time Out: 0845 Room: [place] [id number] IMPRESSIONS: Visit for diet tolerance completed. Patient seen sitting upright in chair with breakfast tray present. Patient self-fed trials of thin liquids and regular solids. No s/s of airway invasion noted. No further intervention is warranted at this time. INSTRUMENTS SALES REPRESENTATIVE to sign off at this time. RECOMMENDATIONS: Diet Recommendations: IDDSI level 7 (regular solids) with thin liquids Medications: Whole with drink, One pill at a time Swallow Precautions: Small bites/sips, Upright to 90 degrees, Oral hygiene after meals Supervision Recommended: Close supervision Oral care: Regular toothbrush No skilled ST PROGNOSIS: Good PLAN: Frequency: None GENERAL INFORMATION: Oxygenation: NC (1L) Behavior:Cooperative Level of Consciousness: Awake & alert Pain: Pain Assessment: DVPRS Pain Score: 0 Diet Prior to this Treatment: Level 0- Thin Liquids and Level 7- Regular diet Preferred Language: Italian TREATMENT SUMMARY: Swallow Activities: Diet tolerance OUTCOME MEASURES: International Dysphagia Diet Standardization Initiative - IDDSI Solids - 7 - Regular Liquids - 0 - Thin IDDSI Level - 8 Patient Education: Education Documentation No documentation found. Education Comments No comments found. If this is the last documented treatment, then it will signify discharge from acute care prior to discharge from the therapy service and will serve as the discharge summary. Therapy discharge recommendations are made by determining the patient's prior level of function, assessing current function level and establishing rehab potential. The overall discharge plan may be affected by input from Physicians, Care Coordination, medical condition/status, family support and insurance benefits. AMRITA DavisSLP * Quirino Rodarte MD - 08/16/2024 7:48 AM CDT Images from the original note were not included. [facility] PULMONARY CRITICAL CARE MEDICINE - PROGRESS NOTE [id number] - Nichelle Hampton - 69 y.o. female - : 1955 - - Admit: 07/31/2024 - John Bruno MD - No chief complaint on file. Patient ID: Nichelle Hampton (69 y.o. female) Chief Complaint: No chief complaint on file. Admission Date: 07/31/2024 Referring Physician: No ref. provider found Reason for Consult: Critical care management Length of Hospital Stay: 16 days Length of ICU Stay: 9d 9h Assessment & Plan Problem List: Principal Problem: Triple vessel coronary artery disease Active Problems: Acute non-ST elevation myocardial infarction (NSTEMI) (CMS/HCC) (HCC) Tachy-sen syndrome (CMS/HCC) (HCC) Tobacco use disorder Peripheral vascular disease (HCC) Normocytic anemia Compression fracture of T10 vertebra (HCC) Cardiac arrest (HCC) Shock (CMS/HCC) (HCC) New onset of congestive heart failure (CMS/HCC) (HCC) Atrial fibrillation with RVR (CMS/HCC) (HCC) Prediabetes Coronary artery disease Diabetes mellitus (HCC) Nonrheumatic mitral valve regurgitation Melena AVM (arteriovenous malformation) Atypical atrial flutter (CMS/HCC) (HCC) Chronic systolic heart failure (CMS/HCC) ([facility]) # Acute decompensated ICMP (HFrEF 45-50%) # NSTEMI/Multivessel CAD (80% left main disease) s/p LM-LAD with SARAH x4 c/b cardiac arrest x2 s/p peripheral VA ECMO (08/06/24, decannulated) # Cardiogenic shock s/p R axillary Impella 5.5 (08/06/24-08/15/24) # Severe mitral regurgitation s/p MitralClip x1 (08/10/24) # Afib with RVR # Acute hypoxic respiratory failure # Cellulitis # Acute GI bleed s/p EGD with bleeding AVMs in the second portion of Duodenum s/p epinephrine, endo clips and application of NEX powder (08/12/24) # Acute on chronic anemia # Acute cardiogenic pulmonary edema # Bilateral pleural effusions # Secondary pulmonary hypertension, group 2 # Minimal upper predominant centrilobular emphysema # Bilateral lower lobe atelectasis # Hypoalbuminemia # Transaminitis # Thrombocytopenia # Tobacco use - Hypertension - Type 2 diabetes mellitus Interval Events: hgb slowly downtrending over past 24 hours. No melena or hemataemesis. Stabilized at low 7s throughout night. [Held by provider] bumetanide, 0.25 mg/hr, Last Rate: Stopped (08/14/24 0921) [Held by provider] heparin, 200 Units/hr, Last Rate: Stopped (08/15/24 0850) Impella: VAD Impella Pump Data Pump Flow (L/min): 2.4 LPM P level (0-9): 4 Purge Flow: 10.3 Impella Position : 42 Purge Pressure (mmHg) 1: 544 mmHg Impella Catheter Type: 5.5 Motor Current Systolic: 216 Motor Current Diastolic: 157 Motor Current Mean: 186 Ao Placement Signal Systolic: 132 Ao Placement Signal Diastolic: 58 Ao Placement Signal Mean: 81 LV Placement Signal Systolic: 139 LV Placement Signal Diastolic: 9 Neuro/Psych: -Continue daytime cues. Limit benzos/opiates/anticholinergics given high risk for delirium. -Monitor for signs of CVA while on MCS support. CV: -LHC (07/30/24) notable for severe 80% LM disease, and severe multivessel disease. S/p PCI. -S/p MitraClip (08/10/24) -Continue GDMT. -MARQUES demonstrated mild global hypokinesis, reduced EF 45-50% and DCCV (07/30/24). -Continue amiodarone gtt for A-fib with RVR. -Continue trending lactate. Latest lactate: 0.5 Resp: O2 Delivery Method: Nasal cannula | O2 Flow Rate (L/min): 1 L/min | | FiO2 (%): 24 % Latest Ref Rng & Units 08/15/2024 9:54 PM 08/15/2024 4:25 PM 08/15/2024 12:36 PM ABG POC A pH 7.35 - 7.45 7.47 7.43 7.44 POC A PCO2 35 - 45 mmHg 40 44 46 POC A PO2 80 - 100 mmHg 88 77 128 POC A HCO3 22 - 26 mMol/L 29 29 31 POC A O2 Sat (leidy) 95 - 100 % 99.5 98.3 100.0 -CT chest (07/31/24) demonstrated small bilateral pleural effusions, greater on the left, dependent consolidative disease with air bronchograms and surrounding groundglass in the bilateral lower lobes. Mild diffuse groundglass is associated with interlobular septal thickening. Scattered bilateral subsegmental atelectasis in both lungs. Minimal upper lobe predominant centrilobular emphysema. -Continue titrating O2 supplement to maintain O2 saturation above 92%. -Continue incentive spirometry. Continue nighttime BiPAP. -Small bilateral pleural effusions (08/13/24) R>L -CXR with interstitial pulm edema. GI/Nutrition: Orderered Tube Feeds and Supplements Medication Dose Route Frequency Provider Last Rate Last Admin Boost Glucose Control liquid 237 mL 1 Container Oral BID with meals Prateek Guzman MD 237 mL at 08/15/24 1744 Adult Diet Heart Healthy Last BM Date: 08/13/24 (08/15/24 0700) -S/p EGD with bleeding AVMs in the second portion of Duodenum s/p epinephrine, endo clips and application of NEX powder (08/12/24) -Continue octreotide -Continue p.o. diet and bowel regimen. -Continue monitoring LFTs. -Continue aspiration precaution. -Monitor for any further GI bleeding. Renal/Electrolytes: Intake/Output Summary (Last 24 hours) at 08/16/2024 0748 Last data filed at 08/16/2024 0600 Gross per 24 hour Intake 717.84 ml Output 790 ml Net -72.16 ml -Monitor urine output and optimize volume status. Need diuretics -Replete electrolytes as needed. Endo: HbA1c: 6.45 | TSH: 1.224 -Continue insulin sliding scale. -Maintain fingersticks <180. Heme/Onc: Results from last 7 days Lab Units 08/16/24 0400 08/16/24 0357 08/16/24 0048 08/15/24 2213 08/15/24 0957 08/15/24 0926 08/15/24 0304 INR -- -- 1.03 -- -- 0.98 1.07 PTT Seconds -- -- 28.8 -- -- 34.8 36.2* LD U/L -- -- 386* -- -- -- 466* HGB PLASMA mg/dL -- -- 10 -- -- -- 40 PLATELETS 10*3/uL -- 264 -- 262 -- 277 235 POC HEMOGLOBIN, VENOUS g/dL 9.5* -- -- -- < > -- -- HEMOGLOBIN g/dL -- 7.2* -- 7.3* -- 8.3* 7.8* < > = values in this interval not displayed. -Continue folic acid. -Continue Brilanta. If she continues to have GI bleeding, discussed with cardiology about switching over to Plavix. -Monitor thrombocytopenia with CBCs. -Off fixed dose heparin. Trend H&H. -Monitor LDH/plasma hemoglobin for hemolysis. -Monitor H&H and for bleeding. ID: Temp (24hrs), Av.1 ?C (98.7 ?F), Min:36.2 ?C (97.2 ?F), Max:37.5 ?C (99.5 ?F) Lab Results Component Value Date WBC 12.30 (H) 08/16/2024 WBC 12.45 (H) 08/15/2024 Procalcitonin 1.57 (H) 08/09/2024 Procalcitonin 2.22 (HH) 07/28/2024 MRSA by PCR Negative 08/09/2024 Blood Culture No growth at 5 days 08/07/2024 Respiratory Culture Normal respiratory tonny 08/07/2024 -Culture if febrile. Msk/Skin/Deconditioned: -Continue PT/OT. -Continue wound care and sacral decubitus prevention. ICU Quality: HOB > 30 degrees Restraints: No Stress Ulcer: Continue PPI IV DVT ppx: Continue heparin gtt. Lines: Indicated due to caustic medication administration (vasopressors, hypertonic/caustic solutions, chemotherapy). , Indicated due to hemodynamic monitoring in critically ill patient. , Arterial line still indicated for invasive BP monitoring. Perkins: Continue external catheter. Code status: Full Code Overall plan: Continue weaning inotropic/vasopressor support and mechanical circulatory support. This patient is critically ill. I spent 35 minutes of critical care time with this patient, not including procedure time. This note was dictated with the use of [employer] speech recognition software. Please excuse any scientific technical writer errors. Quirino Rodarte MD ID Pulmonary Critical Care Faculty History of Present Illness: HISTORY OF PRESENT ILLNESS: Nichelle Hampton is a 69 y.o. female with medical history of hypertension, diabetes mellitus (on no meds), reported history of coronary artery disease and tobacco use, was transferred from [facility] after LHC revealed severe left main disease and multivessel disease. She was originally admitted for hand cellulitis after a spider bite, but during that hospital stay she had hypoxic respiratory failure requiring BiPAP, NSTEMI, possibly newly diagnosed CHF (EF 45-50%), and Afib w/ RVR. She underwent a MARQUES w/ cardioversion. LHC and RHC on 07/31/23 which showed normal filling pressures, LHC which showed 80% mid to distal LM lesion extending into the ostium of LAD, 60-70% mid LAD, diffuse LCx and OM disease, and 70-80% proximal to mid RCA disease. She was transferred to [facility] for revascularizaton. On 08/06/24 she underwent PCI to LM-LAD with SARAH x4 complicated by cardiac arrest x2 where she was cannulated with VA ECMO. 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 Net IO Since Admission: -1,781.11 mL [08/16/24 0748] REVIEW OF SYSTEMS: Constit: Denies Fever Night sweats HEENT: Denies Headaches Dysphagia Pulm: per Events CV: per Events GI: Denies Abd pain Nausea Vomiting : Denies Hematuria Dysuria MS: Denies Myalgias Fall Neuro: Denies Numbness/Tingling Syncope Skin: Denies New rashes Hemo/Lymph: Denies Jaundice Bleeding History PAST MEDICAL HISTORY: has a past medical history of Diabetes mellitus (HCC). PAST SURGICAL HISTORY: has a past surgical history that includes Esophagogastroduodenoscopy (08/12/2024). FAMILY HISTORY: family history includes Diabetes in her mother; No Known Problems in her father. SOCIAL HISTORY: reports that she quit smoking about 58 years ago. Her smoking use included cigarettes. She uses smokeless tobacco. She reports current alcohol use of about 6.0 standard drinks of alcohol per week. She reports that she does not use drugs. ALLERGIES: has no known allergies. HOME MEDICATIONS: Current Outpatient Medications Medication Instructions Repatha SureClick 140 mg, Subcutaneous, Every 14 days CURRENT MEDICATIONS: Scheduled: amiodarone, 400 mg, Oral, BID Followed by [START ON 08/19/2024] amiodarone, 200 mg, Oral, Daily aspirin, 81 mg, Oral, Daily atorvastatin, 40 mg, Oral, Daily Boost Glucose Control, 1 Container, Oral, BID with meals folic acid, 1 mg, Oral, Daily octreotide, 100 mcg, Subcutaneous, TID pantoprazole, 40 mg, Oral, Daily before breakfast polyethylene glycol (PEG) 3350, 17 g, Oral, Daily sennosides, 1 tablet, Oral, BID ticagrelor, 90 mg, Oral, q12h DARYL Drips:[Held by provider] bumetanide, 0.25 mg/hr, Last Rate: Stopped (08/14/24 0921) [Held by provider] heparin, 200 Units/hr, Last Rate: Stopped (08/15/24 0850) PRN:PRN medications: calcium gluconate, chlorhexidine, dextrose, dextrose, glucagon, insulin lispro, magnesium sulfate, phenol, potassium & sodium phosphates OR potassium & sodium phosphates, potassium chloride OR potassium chloride OR potassium chloride OR Potassium chloride, sodium chloride, sodium chloride, sodium chloride, sodium phosphates 45 mmol in sodium chloride 0.9 % 100 mL IVPB, traMADol PHYSICAL EXAM:BP (!) 114/54 | Pulse 65 | Temp 37 ?C (98.6 ?F) | Resp (!) 27 | Ht 1.6 m (5' 2.99") | Wt 60.1 kg (132 lb 7.9 oz) | SpO2 97% | BMI 23.48 kg/m? Gen: AAOx3; NAD Neuro: No focal deficits appreciated HEENT: PERRL; EOMI; No scleral icterus CV/Pulses: RRR; 2+ peripheral pulses Pulm: Decreased breath sounds at the bases and No wheezing GI: BS (+); Soft; NTND : Deferred MS: Tone intact Skin/Ext: No changes in lesions; 1+ pitting edema LABS:Lab Results Component Value Date POC V Na 130 (L) 08/16/2024 Sodium Lvl 137 08/16/2024 POC V K 4.5 08/16/2024 Potassium Lvl 4.6 (H) 08/16/2024 POC V Cl 102 08/16/2024 Chloride Lvl 102 08/16/2024 CO2 Lvl 27.5 08/16/2024 CO2 Lvl 29.1 08/15/2024 BUN 20 08/16/2024 BUN 12 08/15/2024 Creatinine Lvl 0.77 08/16/2024 Creatinine Lvl 0.68 08/15/2024 POC V Glu 158 (H) 08/16/2024 Glucose Lvl 126 (H) 08/16/2024 Calcium Lvl 8.0 (L) 08/16/2024 Magnesium 2.36 08/16/2024 Magnesium 2.44 08/15/2024 Phosphorus Lvl 3.8 08/16/2024 Phosphorus Lvl 3.8 08/15/2024 Albumin Lvl 2.7 (L) 08/16/2024 Albumin Lvl 2.9 (L) 08/15/2024 Protein 5.3 (L) 08/16/2024 Protein 5.6 (L) 08/15/2024 ALT 33 08/16/2024 ALT 48 (H) 08/15/2024 AST 26 08/16/2024 AST 35 08/15/2024 Bilirubin Total 0.44 08/16/2024 Bilirubin Total 0.75 08/15/2024 WBC 12.30 (H) 08/16/2024 WBC 12.45 (H) 08/15/2024 POC V Hgb Tot 9.5 (L) 08/16/2024 Hgb 7.2 (L) 08/16/2024 Plt Count 264 08/16/2024 Plt Count 262 08/15/2024 INR 1.03 08/16/2024 INR 0.98 08/15/2024 PTT 28.8 08/16/2024 PTT 34.8 08/15/2024 LDH Tot 386 (H) 08/16/2024 LDH Tot 466 (H) 08/15/2024 Hgb, Plasma 10 08/16/2024 Hgb, Plasma 40 08/15/2024 Lab ResultsComponent Value Date Pro BNP 17,963 (H) 07/28/2024 Procalcitonin 1.57 (H) 08/09/2024 Procalcitonin 2.22 (HH) 07/28/2024 TSH 1.224 07/28/2024 Hgb A1C 6.45 (H) 07/31/2024 Ferritin Lvl 481 (H) 08/09/2024 Culture Results:No results found for the encounter in last 90 days. IMAGING:Images were reviewed. PFTs: No results found for: "FEV1", "FVC", "VYB0MXC", "TLC", "DLCO" ECHO:Transesophageal echo (MARQUES) Result Date: 08/12/2024 Left Ventricle: Left ventricle size is normal. Moderately reduced systolic function. Impella catheter is present 7.1 cm into the left ventricle. Intra-procedure Impella was pulled back to 5.0 cm. Right Ventricle: Right ventricle size is normal. Lead present in the right ventricle. Normal systolic function in the right ventricle. Left Atrium: Left atrium is dilated. No thrombus in left atrium or left atrial appendage present. Right Atrium: Right atrium size is normal. Catheter present in the Right atrium Aortic Valve: Aortic valve is trileaflet. No leaflet thickening in the aortic valve. Mild aortic regurgitation present. Mitral Valve: severe mitral regurgitation with impella is reduced intra-procedure. ERO 0.41 cm2, RVol 66 ml, and there is reversal in the left superior and right inferior pulmonary veins. Etiology is mixed involving functional ischemic and posterior prolapse at A3-P3. Posterior leaflet measured 0.87 cm. Tricuspid Valve: Mild tricuspid regurgitation present. Transthoracic echo (TTE) completeResult Date: 08/12/2024 Left Ventricle: Left ventricle size is normal. Findings consistent with concentric hypertrophy. Moderate global hypokinesis present. Moderate to severe reduced systolic function with an estimated EF of 35 - 40%. Unable to assess diastolic function in the left ventricle. Impella catheter is present and located 5.0 cm from the aortic valve. Right Ventricle: Right ventricle size is normal. ICD lead present in the right ventricle. Normal systolic function in the right ventricle. TAPSE is 21 mm. Left Atrium: Left atrium is moderately dilated. LA vol index is 42.70 mL/m2. Right Atrium: Right atrium size is normal. Aortic Valve: Aortic valve is trileaflet. No leaflet thickening in the aortic valve. IVC/SVC: IVC diameter is less than or equal to 21 mm and decreases greater than 50% during inspiration; therefore the estimated right atrial pressure is normal (~3 mmHg). Mitral Valve: Well-seated mitral clip present Mean gradient is 4 mmHg across the mitral valve. Mild mitral regurgitation present with a centrally directed jet. Tricuspid Valve: Mild tricuspid regurgitation present. Pericardium: Trivial pericardial effusion present. Left pleural effusion present. Pulmonic Valve: Trace pulmonic regurgitation present. Aorta: Normal sized aortic root present. Transthoracic echo (TTE) limitedResult Date: 08/10/2024 History of Impella 5.5 Limited study performed for followup. Left Ventricle: Left ventricle size is normal. Moderately reduced systolic function. Tip of Impella device is 7.0 cm into LV cavity from the aortic annulus. Right Ventricle: Right ventricle size is normal. Catheter present in the right ventricle. Normal systolic function in the right ventricle. Tricuspid Valve: Tricuspid valve is structurally normal. Mild tricuspid regurgitation present. Mitral Valve: Mitral valve is structurally normal. Moderate mitral regurgitation present. Aortic Valve: Mild to moderate aortic regurgitation present. Pulmonic Valve: Pulmonic valve not well visualized. IVC/SVC: IVC diameter is normal. Normal respiratory variation. Pericardium: Trivial pericardial effusion present. Left pleural effusion present. Compared with prior study 08/07/2024, there is no significant change in biventricular systolic function. Tip of Impella device has advanced further into LV cavity and severity of mitral regurgitation has increased since last study. Transthoracic echo (TTE) completeResult Date: 08/08/2024 Patient intubated with Impella 5.5 at P8 during exam. Left ventricle is normal in size with concentric hypertrophy. The left ventricular systolic function is globally reduced with an estimated ejection fraction of 35-40%, by biplane method of discs. Apical thrombus is not present verified by the use of Lumason contrast. Impella catheter is present and located 5.5 cm from the aortic valve. Right ventricle is normal in size and systolic function (tricuspid annular planar systolic excursion is 23 mm). There is a catheter in the right ventricle. Left atrium is moderately enlarged in size (left atrial volume index is 43 ml/m2). Right atrium is normal in size. Aortic valve is trileaflet. Impella is traversing the aortic valve. No significant regurgitation. Mitral valve is normal in structure with mild central regurgitation. Tricuspid valve leaflets are normal. There is mild tricuspid regurgitation. Estimated right ventricular systolic pressure is 34 mmHg, assuming a right atrial pressure of 8 mmHg. Pulmonic valve appears normal in structure and function. Aortic root is normal in diameter. Patient is ventilated, cannot use IVC diameter to estimate right atrial pressure. Hepatic veins shows normal flow patterns. A trivial pericardial effusion is seen. There is a large left pleural effusion. Compared to prior echocardiogram dated 07/31/2024, left ventricular function is further reduced and there is an Impella catheter in the left ventricle. Transthoracic echo (TTE) completeResult Date: 07/31/2024 Left Ventricle: Left ventricle size is normal. Findings consistent with eccentric hypertrophy. Mild global hypokinesis present. Mildly reduced systolic function with an estimated EF of 45 - 50%. Grade I diastolic dysfunction of the left ventricle. Apical thrombus is not present verified by the use of contrast. Right Ventricle: Right ventricle size is normal. Normal systolic function in the right ventricle. TAPSE is 19 mm. Pericardium: No pericardial effusion present. Transesophageal echo (MARQUES) with possible cardioversionResult Date: 07/30/2024 Left Ventricle: Left ventricle size is normal. Mild global hypokinesis present. Reduced systolic function with an estimated EF of 45 - 50%. Right Ventricle: Right ventricle size is normal. Normal systolic function in the right ventricle. Left Atrium: Normal sized left atrial appendage. No thrombus in left atrium present. Transthoracic echo (TTE) completeResult Date: 07/28/2024 Patient is in atrial fibrillation with RVR at the time of this study. LV systolic function assessment is suboptimal. Left Ventricle: Left ventricle size is normal. Mild global hypokinesis present. Mildly reduced systolic function with an estimated EF of 45 - 50%. Right Ventricle: Right ventricle size is normal. Normal systolic function in the right ventricle. Left Atrium: Left atrium is moderately dilated. Mitral Valve: Moderate mitral regurgitation present. Tricuspid Valve: Mild to moderate tricuspid regurgitation present. Mild to moderate pulmonary hypertension present. RVSP is 46.00 mmHg. Pericardium: Trivial pericardial effusion present. Left pleural effusion present. * Orestes Agrawal MD - 08/16/2024 7:44 AM CDT AHF ICU PROGRESS NOTE Subjective NAEON I/O: Diuretic holiday Intake/Output Summary (Last 24 hours) at 08/16/2024 0940 Last data filed at 08/16/2024 0600 Gross per 24 hour Intake 123.71 ml Output 790 ml Net -666.29 ml Diuresis: None Drips: amiodarone, Mechanical Support: Impella 5.5 Impella Number of Devices: 1 Location 1: Left ventricle Device 1: 5.5 Power/AC Battery Connected 1: Yes Performance Level (PL) 1: 4 PL Flow (L/min) 1: 2.7 L/min Purge Pressure (mmHg) 1: 544 mmHg [place] Numbers: PAP: (33-48)/(8-22) 38/10 CO: [4.7 L/min-6.4 L/min] 6.3 L/min CI: [3 L/min/m2-4.1 L/min/m2] 4 L/min/m2 Post Impella removal on 08/15 CVP 6, 33/12, CI of 3.2 TTE 08/11/24:EF 35-40%, mild MR, mean gradient of 5 mmHg, TTE 08/07/24: EF 35-40%, normal RV size and function, Impella 5.5 cm in LVcavity, moderate MR, trivial pericardial effusion. [facility] 08/06/2024:Successful LM-LAD PCI with SARAH x4 complicated by PEA arrest with CPR ~15 min before cannulated for VA ECMO; hemodynamic instability and PEA arrest thought to be secondary to high LVEDP/stunning during the case. Acute stent thrombosis secondary to stasis/no pulsatility on repeat angiography after cardiac arrest; successfully treated with PTCA. Occlusive R FIELD MARKETING TEAM LEADER (19Fr) cannula and L FIELD MARKETING TEAM LEADER (9Fr) sheath. DIESEL TRAILER MECHANIC of R SFA not amenable to antegrade sheath. TTE 07/31/2024:Left Ventricle: Left ventricle size is normal. Findings consistent with eccentric hypertrophy. Mild global hypokinesis present. Mildly reduced systolic function with an estimated EF of 45 - 50%. Grade I diastolic dysfunction of the left ventricle. Apical thrombus is not present verified by the use of contrast. Right Ventricle: Right ventricle size is normal. Normal systolic function in the right ventricle. TAPSE is 19 mm. Pericardium: No pericardial effusion present. Latest RHC 07/30/2024:RA: Mean 4 mmHg RV 35/0 with RVEDP 5 mmHg PA 36/12 with mean of 22 mmHg PCWP estimated 12-14 mmHg Tucker: CO 3.4 L/min, CI 2.2 L/m2/min Duplex Arterial Ultrasound 08/06IMPRESSION: 1. Right mid and distal SFA and proximal popliteal artery occlusion. Post occlusion reconstitution distal popliteal, posterior tibial, anterior tibial and dorsalis pedis arteries with low resistance low flow waveform. 2. Left mid and distal SFA occlusion with low resistance low flow with reconstitution within the proximal and distal popliteal, and anterior and posterior tibial and dorsalis pedis arteries. Objective Last Recorded Vitals Blood pressure (!) 114/54, pulse 63, temperature 37 ?C (98.6 ?F), resp. rate (!) 32, height 1.6 m (5' 2.99"), weight 60.1 kg (132 lb 7.9 oz), SpO2 97%. GEN: lying down comfortably, not in acute distressHEENT: normal conjuctivae, anicteric sclera neck: no JVD , supple, normal ROM CV: RRR s1s2 no mrg, pulse +2 resp: CTAB, no wheezing/crackles GI: soft, non tender MSK: no joint swelling or pain to palpation extremities: no edema, clubbing or cyanosis Neuro: AOx3, moving all extremities, speech normal Skin: no new rashes, bruises Assessment & PlanCardiac arrest Shock (CMS/HCC) (HCC) Nonrheumatic mitral valve regurgitation -- S/p PCI x4 to LM-LAD c/b PEA arrest with 15 minutes of CPR and ECMO cannulation, finding of acute stent thrombosis s/p PTCA > with subsequent Impella 5.5 placement and decannulation of ECMO on 08/06/2024 -Wean pressors/Impella support as able -Moderate MR noted on TTE and at bedside with large V waves on wedge waveform, -S/p YAQUELIN on 08/10 -Patient is not a candidate for advanced therapies given extensive PAD. If impella is removed, no plan for re-insertion. -Remove [place] Chronic systolic heart failure (CMS/HCC) ([facility]) -Consider starting low dose beta kelly tomorrow if tolerated (discontinuing amiodarone if needed) -Addition of SUSIE/ARB/Entresto/MRA to follow pending clinical course. -Lasix PO 40 mg BID as maintenance diuretics, titrate as necessary -Start farxiga 10 mg daily AVM (arteriovenous malformation) Melena -IV PPI -GI consulted -Transfuse for Hemoglobin of >7 -Discontinue octreotide. -Pantoprazole 40 mg daily Triple vessel coronary artery diseaseAcute non-ST elevation myocardial infarction (NSTEMI) (CMS/HCC) ([facility]) - S/p PCI x4 to LM-LAD c/b PEA arrest with 15 minutes of CPR and ECMO cannulation, > with subsequent Impella 5.5 placement and decannulation of ECMO on 08/06/2024. - Lipids: continue atorvastatin 40 mg PO daily - Antiplatelet: continue aspirin 81 mg PO daily; brilinta 90 mg BID -Triple therapy for one month (aspirin end date 08/27/24) followed by eliquis and brilinta for 1 year. Atrial fibrillation with RVR (CMS/HCC) ([facility])Atypical atrial flutter (CMS/HCC) ([facility]) - Anticoagulation: heparin drip while hospitalized; DOAC after procedures/surgery -Continue PO amiodarone 400 BID x3 days followed by 200 mg daily, consider discontinuing tomorrow to allow for beta kelly initiation. -Start eliquis Compression fracture of T10 vertebra ([facility]) - Incidental finding noted on admission CT - No surgical intervention at this time per ortho spine team Peripheral vascular disease ([facility]) -Arterial doppler with evidence of PAD with distal reconstitution -9 [place] She[place] removed 08/07 Prediabetes - Sliding scale insulin + Discussed with Dr. Agrawal [facility] [place] [place]: Adult Diet Heart Healthy Cardiology Staff Attestation;I have seen and examined the patient with Dr. Velez on 08/16/2024 I have reviewed all the clinical information, lab investigations, radiographic and other imaging data. I agree with findings, assessment and plan as outlined. Treatment plan was formulated under my direct supervision. * Carissa Seay MD - 08/15/2024 12:57 PM CDT Hemotherapy Progress Note HPI: 69 yo female w/ PMH including HTN, DM, CAD and tobacco abuse who was transferred to [facility] for revascularization after LHC at [facility] revealed multivessel disease with severe L main disease. Other relevant events at OSH included cellulitis 2/2 to spider bite and hypoxic respiratory failure requiring bipap, afib RVR and possible new diagnosis of CHF (EF 45-50%). Went for PCI x4 on 08/06 c/b PEA arrest s/p ECMO s/p Impella 5.5 placement. SUBJECTIVE: On Impella support S/p mitral clip on 08/10 Having GI bleeding. IV heparin held. Impella Bicarb purge started. S/P EGD with clippings pending report On ASA and Brilinta Heparin resumed 200 units/hr. It was held due to GI bleed AVM, s/p 5x clips Going for Impella removal today. No longer needed. OBJECTIVE: EXAM BP (!) 117/56 | Pulse 55 | Temp 36.4 ?C (97.5 ?F) | Resp (!) 25 | Ht 1.6 m (5' 2.99") | Wt 58 kg (127 lb 13.9 oz) | SpO2 100% | BMI 22.66 kg/m? Gen: Comfortable, awake and alert Neuro: No focal deficits appreciated HEENT: PERRL; EOMI; No scleral icterus CV/Pulses: RRR; 2+ peripheral pulses Pulm: on HFNC symmetric chest rise GI: Soft; NTND : Deferred MS: Tone intact Skin/Ext: No changes in lesions; 1+ pitting edema LABS: Lab Results Component Value Date Albumin Lvl 2.9 (L) 08/15/2024 Albumin Lvl 3.3 (L) 08/14/2024 Protein 5.6 (L) 08/15/2024 Protein 6.0 08/14/2024 ALT 48 (H) 08/15/2024 ALT 62 (H) 08/14/2024 AST 35 08/15/2024 AST 49 (H) 08/14/2024 Bilirubin Total 0.75 08/15/2024 Bilirubin Total 1.05 08/14/2024 WBC 11.38 (H) 08/15/2024 WBC 11.17 (H) 08/15/2024 POC V Hgb Tot 8.5 (L) 08/15/2024 Hgb 8.3 (L) 08/15/2024 Plt Count 277 08/15/2024 Plt Count 235 08/15/2024 INR 0.98 08/15/2024 INR 1.07 08/15/2024 PTT 34.8 08/15/2024 PTT 36.2 (H) 08/15/2024 LDH Tot 466 (H) 08/15/2024 LDH Tot 479 (H) 08/13/2024 Hgb, Plasma 40 08/15/2024 Hgb, Plasma 20 08/13/2024 Ferritin Lvl 481 (H) 08/09/2024 Results from last 7 days Lab Units 08/15/24 0926 08/15/24 0304 08/14/24 1954 08/14/24 1804 INR 0.98 1.07 -- 1.04 PTT Seconds 34.8 36.2* 37.2* 38.5* IMAGING: Images were reviewed. ASSESSMENT AND PLAN: 69 yo female w/ PMH including HTN, DM, CAD and tobacco abuse who was transferred to [facility] for revascularization after LHC at [facility] revealed multivessel disease with severe L main disease. Other relevant events at OSH included cellulitis 2/2 to spider bite and hypoxic respiratory failure requiring bipap, afib RVR and possible new diagnosis of CHF (EF 45-50%). Went for PCI x4 to LM-LAD c/b PEA arrest with 15 minutes of CPR and ECMO cannulation, finding of acute stent thrombosis s/p PTCA > with subsequent Impella 5.5 placement and decannulation of ECMO on 08/06/2024. Anemia/RBC:GI bleeding 1u pRBCs 08/04, 08/06 in OR, 2 on 08/07 and 08/11 Has anemia of chronic disease with underlying GALEN Getting IV iron and PO folic acid Blood Type: O Pos ; Antibody screen: negative Transfuse if Hb < 7/8 mmHg/dL. Platelet:Count is adequate Count has been downtrending due to Impella and GI bleeding On Asa and Brillinta Transfuse if Platelet count < 20K or <50K if actively bleeding. Coagulation:PT/INR is normal PTT slightly elevated, Heparin low dose Fibrinogen WNL, transfuse cryoprecipitate for fibrinogen <150 mg/dL Anticoagulation for Impella 5.5:Impella bicarb purge IV heparin resumed 200 units/hr. It was held due to GI bleed AVM, s/p 5x clips. Monitor for bleeding. D-dimer, PFH, LDH all stable. Continue to monitor. * Shahzad Rg PharmD - 08/15/2024 11:25 AM CDT Vancomycin Dosing and Monitoring Protocol - Sign-Off Note The Department of Pharmacy will no longer be managing Vancomycin therapy for this patient because: Therapy is being discontinued Thank you for allowing us to participate in the care of this patient. We will sign off for now. Please re-consult if needed. Shahzad Rg PharmD * Francia Tariq OT - 08/15/2024 8:25 AM CDT OT Encounter Note Patient Name: Nichelle Hampton Today's Date: 08/15/2024 Missed Treatment Time and Reason Amount of Missed Time (min): 5 Minutes Pt in OR for Impella 5.5 explant. OT will f/u s/p procedure. Francia Tariq OT * Quirino Rodarte MD - 08/15/2024 7:49 AM CDT Images from the original note were not included. ID PULMONARY CRITICAL CARE MEDICINE - PROGRESS NOTE [id number] - Nichelle Hampton - Rebecca y.o. female - : 1955 - - Admit: 07/31/2024 - John Bruno MD - No chief complaint on file. Patient ID: Nichelle Hampton (69 y.o. female) Chief Complaint: No chief complaint on file. Admission Date: 07/31/2024 Referring Physician: No ref. provider found Reason for Consult: Critical care management Length of Hospital Stay: 15 days Length of ICU Stay: 8d 13h Assessment & Plan Problem List: Principal Problem: Triple vessel coronary artery disease Active Problems: Acute non-ST elevation myocardial infarction (NSTEMI) (CMS/HCC) ([facility]) Tachy-sen syndrome (CMS/HCC) ([facility]) Tobacco use disorder Peripheral vascular disease (HCC) Normocytic anemia Compression fracture of T10 vertebra ([facility]) Cardiac arrest ([facility]) Shock (CMS/HCC) ([facility]) New onset of congestive heart failure (CMS/HCC) ([facility]) Atrial fibrillation with RVR (CMS/HCC) ([facility]) Prediabetes Coronary artery disease Diabetes mellitus ([facility]) Nonrheumatic mitral valve regurgitation Melena AVM (arteriovenous malformation) Atypical atrial flutter (CMS/HCC) ([facility]) # Acute decompensated ICMP (HFrEF 45-50%) # NSTEMI/Multivessel CAD (80% left main disease) s/p LM-LAD with SARAH x4 c/b cardiac arrest x2 s/p peripheral VA ECMO (08/06/24, decannulated) # Cardiogenic shock s/p R axillary Impella 5.5 (08/06/24-08/15/24) # Severe mitral regurgitation s/p MitralClip x1 (08/10/24) # Afib with RVR # Acute hypoxic respiratory failure # Cellulitis # Acute GI bleed s/p EGD with bleeding AVMs in the second portion of Duodenum s/p epinephrine, endo clips and application of NEX powder (08/12/24) # Acute on chronic anemia # Acute cardiogenic pulmonary edema # Bilateral pleural effusions # Secondary pulmonary hypertension, group 2 # Minimal upper predominant centrilobular emphysema # Bilateral lower lobe atelectasis # Hypoalbuminemia # Transaminitis # Thrombocytopenia # Tobacco use - Hypertension - Type 2 diabetes mellitus Interval Events: Flows down to 1.8 on P3, back to P4 overnight. Plan for decann today. amiodarone, 1 mg/min, Last Rate: 1 mg/min (08/15/24 0748) [Held by provider] bumetanide, 0.25 mg/hr, Last Rate: Stopped (08/14/24 0921) [Held by provider] heparin, 500 Units/hr, Last Rate: Stopped (08/11/24 1900) heparin, 200 Units/hr, Last Rate: Stopped (08/15/24 0850) sodium bicarbonate 25 mEq in dextrose 5 % 1,000 mL infusion, 0.1-40 mL/hr, Last Rate: 10.1 mL/hr (08/15/24 0700) Impella: VAD Impella Pump Data Pump Flow (L/min): 2.4 LPM P level (0-9): 4 Purge Flow: 10.3 Impella Position : 42 Purge Pressure (mmHg) 1: 544 mmHg Impella Catheter Type: 5.5 Motor Current Systolic: 216 Motor Current Diastolic: 157 Motor Current Mean: 186 Ao Placement Signal Systolic: 132 Ao Placement Signal Diastolic: 58 Ao Placement Signal Mean: 81 LV Placement Signal Systolic: 139 LV Placement Signal Diastolic: 9 Neuro/Psych: -Continue daytime cues. Limit benzos/opiates/anticholinergics given high risk for delirium. -Monitor for signs of CVA while on MCS support. CV: -LHC (07/30/24) notable for severe 80% LM disease, and severe multivessel disease. S/p PCI. -S/p MitraClip (08/10/24) -Continue GDMT. -MARQUES demonstrated mild global hypokinesis, reduced EF 45-50% and DCCV (07/30/24). -Continue amiodarone gtt for A-fib with RVR. -Continue trending lactate. Latest lactate: 0.5 Resp: O2 Delivery Method: Nasal cannula | O2 Flow Rate (L/min): 2 L/min | | Latest Ref Rng & Units 08/15/2024 9:48 AM 08/14/2024 7:59 PM 08/11/2024 9:26 PM ABG POC A pH 7.35 - 7.45 7.43 7.49 7.46 POC A PCO2 35 - 45 mmHg 45 39 31 POC A PO2 80 - 100 mmHg 104 94 88 POC A HCO3 22 - 26 mMol/L 30 30 22 POC A O2 Sat (leidy) 95 - 100 % 99.3 99.1 99.9 -CT chest (07/31/24) demonstrated small bilateral pleural effusions, greater on the left, dependent consolidative disease with air bronchograms and surrounding groundglass in the bilateral lower lobes. Mild diffuse groundglass is associated with interlobular septal thickening. Scattered bilateral subsegmental atelectasis in both lungs. Minimal upper lobe predominant centrilobular emphysema. -Continue titrating O2 supplement to maintain O2 saturation above 92%. -Continue incentive spirometry. Continue nighttime BiPAP. -Small bilateral pleural effusions (08/13/24) R>L -CXR improving. GI/Nutrition: Orderered Tube Feeds and Supplements Medication Dose Route Frequency Provider Last Rate Last Admin Boost Glucose Control liquid 237 mL 1 Container Oral BID with meals Prateek Guzman MD 237 mL at 08/14/24 1829 No diet orders on file Last BM Date: 08/13/24 (08/15/24 0700) -S/p EGD with bleeding AVMs in the second portion of Duodenum s/p epinephrine, endo clips and application of NEX powder (08/12/24) -Continue octreotide -Continue p.o. diet and bowel regimen. -Continue monitoring LFTs. -Continue aspiration precaution. -Monitor for any further GI bleeding. Renal/Electrolytes: Intake/Output Summary (Last 24 hours) at 08/15/2024 1127 Last data filed at 08/15/2024 0923 Gross per 24 hour Intake 1880.14 ml Output 1705 ml Net 175.14 ml -Monitor urine output and optimize volume status. Give PRN diuretics -Replete electrolytes as needed. Endo: HbA1c: 6.45 | TSH: 1.224 -Continue insulin sliding scale. -Maintain fingersticks <180. Heme/Onc: Results from last 7 days Lab Units 08/15/24 0957 08/15/24 0926 08/15/24 0304 08/14/24 1954 08/13/24 0423 08/13/24 0112 INR -- 0.98 1.07 -- < > 1.08 PTT Seconds -- 34.8 36.2* 37.2* < > 38.7* LD U/L -- -- 466* -- -- 479* HGB PLASMA mg/dL -- -- 40 -- -- 20 PLATELETS 10*3/uL -- 277 235 222 < > 113* POC HEMOGLOBIN, VENOUS g/dL 8.5* -- -- -- < > -- HEMOGLOBIN g/dL -- 8.3* 7.8* 8.2* < > 7.1* < > = values in this interval not displayed. -Continue folic acid. -Continue Brilanta. If she continues to have GI bleeding, discussed with cardiology about switching over to Plavix. -Monitor thrombocytopenia with CBCs. -Continue fixed dose heparin per heme path/surgery. -Monitor LDH/plasma hemoglobin for hemolysis. -Monitor H&H and for bleeding. ID: Temp (24hrs), Av.8 ?C (98.3 ?F), Min:36.4 ?C (97.5 ?F), Max:37.2 ?C (99 ?F) Lab Results Component Value Date WBC 11.38 (H) 08/15/2024 WBC 11.17 (H) 08/15/2024 Procalcitonin 1.57 (H) 08/09/2024 Procalcitonin 2.22 (HH) 07/28/2024 MRSA by PCR Negative 08/09/2024 Blood Culture No growth at 5 days 08/07/2024 Respiratory Culture Normal respiratory tonny 08/07/2024 -Culture if febrile. Msk/Skin/Deconditioned: -Continue PT/OT. -Continue wound care and sacral decubitus prevention. ICU Quality: HOB > 30 degrees Restraints: No Stress Ulcer: Continue PPI IV DVT ppx: Continue heparin gtt. Lines: Indicated due to caustic medication administration (vasopressors, hypertonic/caustic solutions, chemotherapy). , Indicated due to hemodynamic monitoring in critically ill patient. , Arterial line still indicated for invasive BP monitoring. Perkins: Continue external catheter. Code status: Full Code Overall plan: Continue weaning inotropic/vasopressor support and mechanical circulatory support. This patient is critically ill. I spent 35 minutes of critical care time with this patient, not including procedure time. This note was dictated with the use of [employer] speech recognition software. Please excuse any scientific technical writer errors. Quirino Rodarte MD ID Pulmonary Critical Care Faculty History of Present Illness: HISTORY OF PRESENT ILLNESS: Nichelle Hampton is a 69 y.o. female with medical history of hypertension, diabetes mellitus (on no meds), reported history of coronary artery disease and tobacco use, was transferred from [facility] after LHC revealed severe left main disease and multivessel disease. She was originally admitted for hand cellulitis after a spider bite, but during that hospital stay she had hypoxic respiratory failure requiring BiPAP, NSTEMI, possibly newly diagnosed CHF (EF 45-50%), and Afib w/ RVR. She underwent a MARQUES w/ cardioversion. LHC and RHC on 07/31/23 which showed normal filling pressures, LHC which showed 80% mid to distal LM lesion extending into the ostium of LAD, 60-70% mid LAD, diffuse LCx and OM disease, and 70-80% proximal to mid RCA disease. She was transferred to [facility] for revascularizaton. On 08/06/24 she underwent PCI to LM-LAD with SARAH x4 complicated by cardiac arrest x2 where she was cannulated with VA ECMO. 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 Net IO Since Admission: -1,208.95 mL [08/15/24 1127] REVIEW OF SYSTEMS: Constit: Denies Fever Night sweats HEENT: Denies Headaches Dysphagia Pulm: per Events CV: per Events GI: Denies Abd pain Nausea Vomiting : Denies Hematuria Dysuria MS: Denies Myalgias Fall Neuro: Denies Numbness/Tingling Syncope Skin: Denies New rashes Hemo/Lymph: Denies Jaundice Bleeding History PAST MEDICAL HISTORY: has a past medical history of Diabetes mellitus (HCC). PAST SURGICAL HISTORY: has a past surgical history that includes Esophagogastroduodenoscopy (08/12/2024). FAMILY HISTORY: family history includes Diabetes in her mother; No Known Problems in her father. SOCIAL HISTORY: reports that she quit smoking about 58 years ago. Her smoking use included cigarettes. She uses smokeless tobacco. She reports current alcohol use of about 6.0 standard drinks of alcohol per week. She reports that she does not use drugs. ALLERGIES: has no known allergies. HOME MEDICATIONS: Current Outpatient Medications Medication Instructions Kunal SureClick 140 mg, Subcutaneous, Every 14 days CURRENT MEDICATIONS: Scheduled: aspirin, 81 mg, Oral, Daily atorvastatin, 40 mg, Oral, Daily Boost Glucose Control, 1 Container, Oral, BID with meals folic acid, 1 mg, Oral, Daily octreotide, 100 mcg, Subcutaneous, TID pantoprazole, 40 mg, Intravenous, q12h DARYL polyethylene glycol (PEG) 3350, 17 g, Oral, Daily sennosides, 1 tablet, Oral, BID ticagrelor, 90 mg, Oral, q12h DARYL Drips:amiodarone, 1 mg/min, Last Rate: 1 mg/min (08/15/24 0748) [Held by provider] bumetanide, 0.25 mg/hr, Last Rate: Stopped (08/14/24 0921) [Held by provider] heparin, 500 Units/hr, Last Rate: Stopped (08/11/24 1900) heparin, 200 Units/hr, Last Rate: Stopped (08/15/24 0850) sodium bicarbonate 25 mEq in dextrose 5 % 1,000 mL infusion, 0.1-40 mL/hr, Last Rate: 10.1 mL/hr (08/15/24 0700) PRN:PRN medications: calcium gluconate, chlorhexidine, dextrose, dextrose, glucagon, insulin lispro, magnesium sulfate, phenol, potassium & sodium phosphates OR potassium & sodium phosphates, potassium chloride OR potassium chloride OR potassium chloride OR Potassium chloride, sodium chloride, sodium chloride, sodium chloride, sodium phosphates 45 mmol in sodium chloride 0.9 % 100 mL IVPB, traMADol PHYSICAL EXAM:BP (!) 120/53 | Pulse 55 | Temp 36.6 ?C (97.9 ?F) | Resp (!) 26 | Ht 1.6 m (5' 2.99") | Wt 58 kg (127 lb 13.9 oz) | SpO2 99% | BMI 22.66 kg/m? Gen: AAOx3; NAD Neuro: No focal deficits appreciated HEENT: PERRL; EOMI; No scleral icterus CV/Pulses: RRR; 2+ peripheral pulses Pulm: Decreased breath sounds at the bases and No wheezing GI: BS (+); Soft; NTND : Deferred MS: Tone intact Skin/Ext: No changes in lesions; 1+ pitting edema LABS:Lab Results Component Value Date POC V Na 133 (L) 08/15/2024 POC A Na 133 (L) 08/15/2024 POC V K 3.8 08/15/2024 POC A K 4.0 08/15/2024 POC V Cl 101 08/15/2024 POC Chloride 101 08/15/2024 CO2 Lvl 29.1 08/15/2024 CO2 Lvl 29.2 08/15/2024 BUN 12 08/15/2024 BUN 14 08/15/2024 Creatinine Lvl 0.68 08/15/2024 Creatinine Lvl 0.68 08/15/2024 POC V Glu 176 (H) 08/15/2024 POC A Glu 180 (H) 08/15/2024 Calcium Lvl 8.3 08/15/2024 Magnesium 2.44 08/15/2024 Magnesium 2.19 08/15/2024 Phosphorus Lvl 3.8 08/15/2024 Phosphorus Lvl 3.9 08/14/2024 Albumin Lvl 2.9 (L) 08/15/2024 Albumin Lvl 3.3 (L) 08/14/2024 Protein 5.6 (L) 08/15/2024 Protein 6.0 08/14/2024 ALT 48 (H) 08/15/2024 ALT 62 (H) 08/14/2024 AST 35 08/15/2024 AST 49 (H) 08/14/2024 Bilirubin Total 0.75 08/15/2024 Bilirubin Total 1.05 08/14/2024 WBC 11.38 (H) 08/15/2024 WBC 11.17 (H) 08/15/2024 POC V Hgb Tot 8.5 (L) 08/15/2024 Hgb 8.3 (L) 08/15/2024 Plt Count 277 08/15/2024 Plt Count 235 08/15/2024 INR 0.98 08/15/2024 INR 1.07 08/15/2024 PTT 34.8 08/15/2024 PTT 36.2 (H) 08/15/2024 LDH Tot 466 (H) 08/15/2024 LDH Tot 479 (H) 08/13/2024 Hgb, Plasma 40 08/15/2024 Hgb, Plasma 20 08/13/2024 Lab ResultsComponent Value Date Pro BNP 17,963 (H) 07/28/2024 Procalcitonin 1.57 (H) 08/09/2024 Procalcitonin 2.22 (HH) 07/28/2024 TSH 1.224 07/28/2024 Hgb A1C 6.45 (H) 07/31/2024 Ferritin Lvl 481 (H) 08/09/2024 Culture Results:No results found for the encounter in last 90 days. IMAGING:Images were reviewed. PFTs: No results found for: "FEV1", "FVC", "ERL3YZN", "TLC", "DLCO" ECHO:Transesophageal echo (MARQUES) Result Date: 08/12/2024 Left Ventricle: Left ventricle size is normal. Moderately reduced systolic function. Impella catheter is present 7.1 cm into the left ventricle. Intra-procedure Impella was pulled back to 5.0 cm. Right Ventricle: Right ventricle size is normal. Lead present in the right ventricle. Normal systolic function in the right ventricle. Left Atrium: Left atrium is dilated. No thrombus in left atrium or left atrial appendage present. Right Atrium: Right atrium size is normal. Catheter present in the Right atrium Aortic Valve: Aortic valve is trileaflet. No leaflet thickening in the aortic valve. Mild aortic regurgitation present. Mitral Valve: severe mitral regurgitation with impella is reduced intra-procedure. ERO 0.41 cm2, RVol 66 ml, and there is reversal in the left superior and right inferior pulmonary veins. Etiology is mixed involving functional ischemic and posterior prolapse at A3-P3. Posterior leaflet measured 0.87 cm. Tricuspid Valve: Mild tricuspid regurgitation present. Transthoracic echo (TTE) completeResult Date: 08/12/2024 Left Ventricle: Left ventricle size is normal. Findings consistent with concentric hypertrophy. Moderate global hypokinesis present. Moderate to severe reduced systolic function with an estimated EF of 35 - 40%. Unable to assess diastolic function in the left ventricle. Impella catheter is present and located 5.0 cm from the aortic valve. Right Ventricle: Right ventricle size is normal. ICD lead present in the right ventricle. Normal systolic function in the right ventricle. TAPSE is 21 mm. Left Atrium: Left atrium is moderately dilated. LA vol index is 42.70 mL/m2. Right Atrium: Right atrium size is normal. Aortic Valve: Aortic valve is trileaflet. No leaflet thickening in the aortic valve. IVC/SVC: IVC diameter is less than or equal to 21 mm and decreases greater than 50% during inspiration; therefore the estimated right atrial pressure is normal (~3 mmHg). Mitral Valve: Well-seated mitral clip present Mean gradient is 4 mmHg across the mitral valve. Mild mitral regurgitation present with a centrally directed jet. Tricuspid Valve: Mild tricuspid regurgitation present. Pericardium: Trivial pericardial effusion present. Left pleural effusion present. Pulmonic Valve: Trace pulmonic regurgitation present. Aorta: Normal sized aortic root present. Transthoracic echo (TTE) limitedResult Date: 08/10/2024 History of Impella 5.5 Limited study performed for followup. Left Ventricle: Left ventricle size is normal. Moderately reduced systolic function. Tip of Impella device is 7.0 cm into LV cavity from the aortic annulus. Right Ventricle: Right ventricle size is normal. Catheter present in the right ventricle. Normal systolic function in the right ventricle. Tricuspid Valve: Tricuspid valve is structurally normal. Mild tricuspid regurgitation present. Mitral Valve: Mitral valve is structurally normal. Moderate mitral regurgitation present. Aortic Valve: Mild to moderate aortic regurgitation present. Pulmonic Valve: Pulmonic valve not well visualized. IVC/SVC: IVC diameter is normal. Normal respiratory variation. Pericardium: Trivial pericardial effusion present. Left pleural effusion present. Compared with prior study 08/07/2024, there is no significant change in biventricular systolic function. Tip of Impella device has advanced further into LV cavity and severity of mitral regurgitation has increased since last study. Transthoracic echo (TTE) completeResult Date: 08/08/2024 Patient intubated with Impella 5.5 at P8 during exam. Left ventricle is normal in size with concentric hypertrophy. The left ventricular systolic function is globally reduced with an estimated ejection fraction of 35-40%, by biplane method of discs. Apical thrombus is not present verified by the use of Lumason contrast. Impella catheter is present and located 5.5 cm from the aortic valve. Right ventricle is normal in size and systolic function (tricuspid annular planar systolic excursion is 23 mm). There is a catheter in the right ventricle. Left atrium is moderately enlarged in size (left atrial volume index is 43 ml/m2). Right atrium is normal in size. Aortic valve is trileaflet. Impella is traversing the aortic valve. No significant regurgitation. Mitral valve is normal in structure with mild central regurgitation. Tricuspid valve leaflets are normal. There is mild tricuspid regurgitation. Estimated right ventricular systolic pressure is 34 mmHg, assuming a right atrial pressure of 8 mmHg. Pulmonic valve appears normal in structure and function. Aortic root is normal in diameter. Patient is ventilated, cannot use IVC diameter to estimate right atrial pressure. Hepatic veins shows normal flow patterns. A trivial pericardial effusion is seen. There is a large left pleural effusion. Compared to prior echocardiogram dated 07/31/2024, left ventricular function is further reduced and there is an Impella catheter in the left ventricle. Transthoracic echo (TTE) completeResult Date: 07/31/2024 Left Ventricle: Left ventricle size is normal. Findings consistent with eccentric hypertrophy. Mild global hypokinesis present. Mildly reduced systolic function with an estimated EF of 45 - 50%. Grade I diastolic dysfunction of the left ventricle. Apical thrombus is not present verified by the use of contrast. Right Ventricle: Right ventricle size is normal. Normal systolic function in the right ventricle. TAPSE is 19 mm. Pericardium: No pericardial effusion present. Transesophageal echo (MARQUES) with possible cardioversionResult Date: 07/30/2024 Left Ventricle: Left ventricle size is normal. Mild global hypokinesis present. Reduced systolic function with an estimated EF of 45 - 50%. Right Ventricle: Right ventricle size is normal. Normal systolic function in the right ventricle. Left Atrium: Normal sized left atrial appendage. No thrombus in left atrium present. Transthoracic echo (TTE) completeResult Date: 07/28/2024 Patient is in atrial fibrillation with RVR at the time of this study. LV systolic function assessment is suboptimal. Left Ventricle: Left ventricle size is normal. Mild global hypokinesis present. Mildly reduced systolic function with an estimated EF of 45 - 50%. Right Ventricle: Right ventricle size is normal. Normal systolic function in the right ventricle. Left Atrium: Left atrium is moderately dilated. Mitral Valve: Moderate mitral regurgitation present. Tricuspid Valve: Mild to moderate tricuspid regurgitation present. Mild to moderate pulmonary hypertension present. RVSP is 46.00 mmHg. Pericardium: Trivial pericardial effusion present. Left pleural effusion present. * Nixon Castanon PT - 08/15/2024 7:29 AM CDT Encounter Note Patient Name: Nichelle Hampton Today's Date: 08/15/2024 Missed Treatment Time and Reason Chart reviewed. Pt transferring to OR this AM for Impella 5.5 explant. PT will follow up s/p procedure and reinitiate mobility when appropriate. Nixon Castanon PT * Orestes Agrawal MD - 08/15/2024 7:23 AM CDT AHF ICU PROGRESS NOTE Subjective NAEON I/O: Diuretic holiday Intake/Output Summary (Last 24 hours) at 08/15/2024 0724 Last data filed at 08/15/2024 0100 Gross per 24 hour Intake 1259.78 ml Output 2105 ml Net -845.22 ml Diuresis: None Drips: amiodarone, Mechanical Support: Impella 5.5 Impella Number of Devices: 1 Location 1: Left ventricle Device 1: 5.5 Power/AC Battery Connected 1: Yes Performance Level (PL) 1: 4 PL Flow (L/min) 1: 2.7 L/min Purge Pressure (mmHg) 1: 544 mmHg Shukri Numbers: Post Impella removal CVP 6, 33/12, CI of 3.2 TTE 08/11/24:EF 35-40%, mild MR, mean gradient of 5 mmHg, TTE 08/07/24: EF 35-40%, normal RV size and function, Impella 5.5 cm in LVcavity, moderate MR, trivial pericardial effusion. LHC 08/06/2024:Successful LM-LAD PCI with SARAH x4 complicated by PEA arrest with CPR ~15 min before cannulated for VA ECMO; hemodynamic instability and PEA arrest thought to be secondary to high LVEDP/stunning during the case. Acute stent thrombosis secondary to stasis/no pulsatility on repeat angiography after cardiac arrest; successfully treated with PTCA. Occlusive R FIELD MARKETING TEAM LEADER (19Fr) cannula and L FIELD MARKETING TEAM LEADER (9Fr) sheath. DIESEL TRAILER MECHANIC of R SFA not amenable to antegrade sheath. TTE 07/31/2024:Left Ventricle: Left ventricle size is normal. Findings consistent with eccentric hypertrophy. Mild global hypokinesis present. Mildly reduced systolic function with an estimated EF of 45 - 50%. Grade I diastolic dysfunction of the left ventricle. Apical thrombus is not present verified by the use of contrast. Right Ventricle: Right ventricle size is normal. Normal systolic function in the right ventricle. TAPSE is 19 mm. Pericardium: No pericardial effusion present. Latest RH 07/30/2024:RA: Mean 4 mmHg RV 35/0 with RVEDP 5 mmHg PA 36/12 with mean of 22 mmHg PCWP estimated 12-14 mmHg Tucker: CO 3.4 L/min, CI 2.2 L/m2/min Duplex Arterial Ultrasound 08/06IMPRESSION: 1. Right mid and distal SFA and proximal popliteal artery occlusion. Post occlusion reconstitution distal popliteal, posterior tibial, anterior tibial and dorsalis pedis arteries with low resistance low flow waveform. 2. Left mid and distal SFA occlusion with low resistance low flow with reconstitution within the proximal and distal popliteal, and anterior and posterior tibial and dorsalis pedis arteries. Objective Last Recorded Vitals Blood pressure (!) 119/55, pulse 58, temperature 36.6 ?C (97.9 ?F), resp. rate (!) 4, height 1.6 m (5' 2.99"), weight 58 kg (127 lb 13.9 oz), SpO2 99%. GEN: lying down comfortably, not in acute distressHEENT: normal conjuctivae, anicteric sclera neck: no JVD , supple, normal ROM CV: RRR s1s2 no mrg, pulse +2 resp: CTAB, no wheezing/crackles GI: soft, non tender MSK: no joint swelling or pain to palpation extremities: no edema, clubbing or cyanosis Neuro: AOx3, moving all extremities, speech normal Skin: no new rashes, bruises Assessment & PlanCardiac arrest Shock ([facility]) ([facility]) Nonrheumatic mitral valve regurgitation -- S/p PCI x4 to LM-LAD c/b PEA arrest with 15 minutes of CPR and ECMO cannulation, finding of acute stent thrombosis s/p PTCA > with subsequent Impella 5.5 placement and decannulation of ECMO on 08/06/2024 -Wean pressors/Impella support as able -Moderate MR noted on TTE and at bedside with large V waves on wedge waveform, -S/p YAQUELIN on 08/10 -Patient is not a candidate for advanced therapies given extensive PAD. If impella is removed, no plan for re-insertion. -Remove impella today -Fixed dose heparin 200 U AVM (arteriovenous malformation) Melena -IV PPI -GI consulted -Transfuse for Hemoglobin of >7 -Continue octreotide to 100 TID -Pantoprazole 40 mg daily Triple vessel coronary artery diseaseAcute non-ST elevation myocardial infarction (NSTEMI) ([facility]) ([facility]) - S/p PCI x4 to LM-LAD c/b PEA arrest with 15 minutes of CPR and ECMO cannulation, > with subsequent Impella 5.5 placement and decannulation of ECMO on 08/06/2024. - Lipids: continue atorvastatin 40 mg PO daily - Antiplatelet: continue aspirin 81 mg PO daily; brilinta 90 mg BID Atrial fibrillation with RVR ([facility]) ([facility])Atypical atrial flutter ([facility]) ([facility]) - Anticoagulation: heparin drip while hospitalized; DOAC after procedures/surgery -Transition to PO amiodarone 400 BID x3 days followed by 200 mg daily -Resume heparin once cleared from surgery Compression fracture of T10 vertebra ([facility]) - Incidental finding noted on admission CT - No surgical intervention at this time per ortho spine team Peripheral vascular disease ([facility]) -Arterial doppler with evidence of PAD with distal reconstitution -9 [place] Sheath removed 08/07 Prediabetes - Sliding scale insulin + D[facility] Nghia [facility] [place] [place]: NPO Diet NPO except: Sips with meds Cardiology Staff Attestation; I have seen and examined the patient with Dr. Velez on 08/15/2024 I have reviewed all the clinical information, lab investigations, radiographic and other imaging data. I agree with findings, assessment and plan as outlined. Treatment plan was formulated under my direct supervision. * EDITH Davis - 08/15/2024 7:15 AM CDT Speech-Language Pathology Encounter Note Patient Name: Nichelle Hampton Today's Date: 08/15/2024 Missed Treatment Time and Reason Chart reviewed. Per EMR, patient NPO for Impella Decannulation. Patient safe to initiate INSTRUMENTS SALES REPRESENTATIVE recommended diet of regular solids with thin liquids when appropriate. INSTRUMENTS SALES REPRESENTATIVE to continue to follow for diet tolerance. Current Diet Texture: NPO EDITH Davis * GILDA Vincent - 08/14/2024 5:11 PM CDT Plan to take patient to OR 08/15/24 for Impella 5.5 explant. * Marisa Neri RN - 08/14/2024 3:35 PM CDT CASE MANAGEMENT ROUTINE DISCHARGE PLAN NOTE LOS: 14 Barriers to Discharge: Barrier to Discharge: MV CAD. IV abx., amio, . 08/06 Impella. DISCHARGE PLAN A/B: Home MILENA: 1 week. * Francia Tariq OT - 08/14/2024 3:00 PM CDT OT Encounter Note Patient Name: Nichelle Hampton Today's Date: 08/14/2024 Missed Treatment Time and Reason Amount of Missed Time (min): 5 Minutes OT attempted to see to see pt his AM. RN requesting OT hold as pt with new onset A flutter and hypotensive. OT will f/u once pt medically appropriate. Francia Tariq OT * Carissa Seay MD - 08/14/2024 2:47 PM CDT Hemotherapy Progress Note HPI: 69 yo female w/ PMH including HTN, DM, CAD and tobacco abuse who was transferred to [facility] for revascularization after LHC at [facility] revealed multivessel disease with severe L main disease. Other relevant events at OSH included cellulitis 2/2 to spider bite and hypoxic respiratory failure requiring bipap, afib RVR and possible new diagnosis of CHF (EF 45-50%). Went for PCI x4 on 08/06 c/b PEA arrest s/p ECMO s/p Impella 5.5 placement. SUBJECTIVE: On Impella support S/p mitral clip on 08/10 Having GI bleeding. IV heparin held. Impella Bicarb purge started. S/P 2 RBCs on 08/11. No transfusions overnight. S/P EGD with clippings pending report On ASA and Brilinta No AC currently due to GI bleed AVM, s/p 5x clips OBJECTIVE: EXAM BP (!) 111/56 | Pulse 62 | Temp 36.6 ?C (97.9 ?F) | Resp (!) 33 | Ht 1.6 m (5' 3") | Wt 59.3 kg (130 lb 11.7 oz) | SpO2 98% | BMI 23.16 kg/m? Gen: Comfortable, awake and alert Neuro: No focal deficits appreciated HEENT: PERRL; EOMI; No scleral icterus CV/Pulses: RRR; 2+ peripheral pulses Pulm: on HFNC symmetric chest rise GI: Soft; NTND : Deferred MS: Tone intact Skin/Ext: No changes in lesions; 1+ pitting edema LABS: Lab Results Component Value Date Albumin Lvl 3.3 (L) 08/14/2024 Albumin Lvl 2.8 (L) 08/13/2024 Protein 6.0 08/14/2024 Protein 5.0 (L) 08/13/2024 ALT 62 (H) 08/14/2024 ALT 60 (H) 08/13/2024 AST 49 (H) 08/14/2024 AST 65 (H) 08/13/2024 Bilirubin Total 1.05 08/14/2024 Bilirubin Total 0.88 08/13/2024 WBC 11.95 (H) 08/14/2024 WBC 12.94 (H) 08/14/2024 POC V Hgb Tot 9.0 (L) 08/14/2024 Hgb 8.4 (L) 08/14/2024 Plt Count 207 08/14/2024 Plt Count 190 (L) 08/14/2024 INR 0.99 08/14/2024 INR 1.08 08/13/2024 PTT 36.1 (H) 08/14/2024 PTT 38.7 (H) 08/13/2024 LDH Tot 479 (H) 08/13/2024 LDH Tot 409 (H) 08/12/2024 Hgb, Plasma 20 08/13/2024 Hgb, Plasma <10 08/12/2024 Ferritin Lvl 481 (H) 08/09/2024 Results from last 7 days Lab Units 08/14/24 0201 08/13/24 0112 08/12/24 0336 INR 0.99 1.08 1.03 PTT Seconds 36.1* 38.7* 35.5 IMAGING: Images were reviewed. ASSESSMENT AND PLAN: 69 yo female w/ PMH including HTN, DM, CAD and tobacco abuse who was transferred to [facility] for revascularization after LHC at [facility] revealed multivessel disease with severe L main disease. Other relevant events at OSH included cellulitis 2/2 to spider bite and hypoxic respiratory failure requiring bipap, afib RVR and possible new diagnosis of CHF (EF 45-50%). Went for PCI x4 to LM-LAD c/b PEA arrest with 15 minutes of CPR and ECMO cannulation, finding of acute stent thrombosis s/p PTCA > with subsequent Impella 5.5 placement and decannulation of ECMO on 08/06/2024. Anemia/RBC:GI bleeding 1u pRBCs 08/04, 08/06 in OR, 2 on 08/07 and 08/11 Has anemia of chronic disease with underlying GALEN Getting IV iron and PO folic acid Blood Type: O Pos ; Antibody screen: negative Transfuse if Hb < 7/8 mmHg/dL. Platelet:Count is adequate Count has been downtrending due to Impella and GI bleeding On Asa and Brillinta Transfuse if Platelet count < 20K or <50K if actively bleeding. Coagulation:PT/INR is normal PTT slightly elevated, Heparin on hold. Fibrinogen WNL, transfuse cryoprecipitate for fibrinogen <150 mg/dL Anticoagulation for Impella 5.5:Impella bicarb purge Holding IV heparin due to GI bleed AVM, s/p 5x clips. Will resume when bleeding is no more an issue. Monitor for bleeding. D-dimer, PFH, LDH all stable. Continue to monitor. * Shahzad Rg PharmD - 08/14/2024 10:50 AM CDT Clinician Notes: Continue current dose of 750 mg Q12H Next vancomycin level on 08/16 Recommended Dose: 750 mg IV over 1 hour every 12 hours for 2 days Next Dose At: 22:35 on Aug 14 2024 Dosing Interval: 12 hours Infusion Length: 1 hours Dose Valid For: 2 days only Dose Recommendation Method: Individualized model Target Outcome: AUC24: 450 mcg.h/mL Predicted Outcome: AUC24: 428.56 mcg.h/mL Predicted Peak: 24.5 mcg/mL Predicted Trough: 12.5 mcg/mL Predicted AUC24: 428.6 mcg.h/mL Predicted AUC12: 214.3 mcg.h/mL Most Recent Dose: 750 mg over 1 hours at 10:35 on Aug 14 2024 Most Recent SCr: 0.63 mg/dL at 02:00 on Aug 14 2024 Most Recent Blood Concentration: 18.6 mcg/mL at 04:10 on Aug 11 2024 Peak: 24.9 mcg/mL Trough: 12.7 mcg/mL AUC24: 437 mcg.h/mL AUC12: 218 mcg.h/mL * Nixon Castanon PT - 08/14/2024 9:40 AM CDT Encounter Note Patient Name: Nichelle Hampton Today's Date: 08/14/2024 Missed Treatment Time and Reason Attempted PT session. Spoke to RN to check pt status. PT currently with new Afib RVR in the 100s on tele (previously 60s early this AM per chart). Pt also hypotensive with MAPs in 50s while resting in bed. As a result, pt inappropriate to participate with PT at this time. PT will follow up pending medical stability. Nixon Castanon PT * Jesse Hernandes MD - 08/14/2024 8:37 AM CDT HF Surgery Progress Note PMH: 69 yo female w/ PMH including HTN, DM, CAD and tobacco abuse who was transferred to [facility] for revascularization after LHC at [facility] revealed multivessel disease with severe L main disease. Other relevant events at OSH included cellulitis 2/2 to spider bite and hypoxic respiratory failure requiring bipap, afib RVR and possible new diagnosis of CHF (EF 45-50%). 08/06 High-risk successful LM-LAD PCI with SARAH x4 , complicated by PEA, emergent vaECMO, due to in-stent thrombosis 08/06 Impella 5.5 placement axillary R and vaECMO removal w/ art repair 08/10 YAQUELIN (1x MitraClip), reduction MR 3+ to 2+ 08/12 GI placed 5 clips for multiple angioectasias in the 2nd part of the duodenum (bleeding was observed). Subjective: No melena overnight. NPO since MN for possible impella decannulation, CXR much better than yesterday. CVP 5, PA 30/9, MAP 73. Good arterial and reasonable PA pulsatility. Right axillary wound looks ok. Heart rate 60s-70s with transient episodes of sen to 40s and some tachy to 100. bumetanide, 0.25 mg/hr, Last Rate: 0.25 mg/hr (08/14/24 0709) [Held by provider] heparin, 500 Units/hr, Last Rate: Stopped (08/11/24 1900) sodium bicarbonate 25 mEq in dextrose 5 % 1,000 mL infusion, 0.1-40 mL/hr, Last Rate: 10.1 mL/hr (08/14/24 0600) Impella P4, 2.7L. Objective Last Recorded Vitals Blood pressure (!) 123/59, pulse 63, temperature 36.7 ?C (98.1 ?F), resp. rate 18, height 1.6 m (5' 3"), weight 59.3 kg (130 lb 11.7 oz), SpO2 98%. Ventricular Assist Device(VAD) Initial VAD Type: LVAD VAD Pump: Impella Impella Device: Impella 5.5 VAD Laterality: Left Pump Flow (L/min): 2.4 VAD P-Level: 4 Placement Signal: 129/52 Motor Current (mA): 220/159 Purge Flow (mL / hr): 10.1 Purge Pressures (mmHg): 570 Site Marker (cm): 43 Pertinent Labs : Lab Results Component Value Date WBC 12.94 (H) 08/14/2024 POC V Hgb Tot 9.0 (L) 08/14/2024 Hgb 8.5 (L) 08/14/2024 POC A Hct (calc) 30.0 (L) 08/11/2024 POC V Hct (calc) 27.0 (L) 08/14/2024 Hct 26.2 (L) 08/14/2024 Plt Count 190 (L) 08/14/2024 Lab Results Component Value Date POC V Na 134 (L) 08/14/2024 Sodium Lvl 139 08/14/2024 POC V K 4.1 08/14/2024 Potassium Lvl 4.1 08/14/2024 POC V Cl 99 08/14/2024 Chloride Lvl 101 08/14/2024 CO2 Lvl 29.1 08/14/2024 BUN 12 08/14/2024 Creatinine Lvl 0.63 08/14/2024 POC V Glu 145 (H) 08/14/2024 Glucose Lvl 127 (H) 08/14/2024 POC Glu 136 (H) 08/14/2024 Lab Results Component Value Date Calcium Lvl 8.5 08/14/2024 Magnesium 2.08 08/14/2024 Phosphorus Lvl 3.4 08/14/2024 Lab Results Component Value Date AST 49 (H) 08/14/2024 ALT 62 (H) 08/14/2024 Alkaline Phosphatase 140 (H) 08/14/2024 Lab Results Component Value Date PTT 36.1 (H) 08/14/2024 Prothrombin Time (PT) 13.3 08/14/2024 INR 0.99 08/14/2024 Physical Exam: Constitutional: Interventions: She is sedated. HENT: Head: Atraumatic. Nose: Nose normal. Mouth/Throat: Mouth: Mucous membranes are moist. Eyes: Extraocular Movements: Extraocular movements intact. Conjunctiva/sclera: Conjunctivae normal. Cardiovascular: Rate and Rhythm: Normal rate and regular rhythm. Heart sounds: Normal heart sounds. Abdominal: General: Bowel sounds are normal. Palpations: Abdomen is soft. Skin: General: Skin is warm. Capillary Refill: Capillary refill takes less than 2 seconds. Neurological: General: No focal deficit present. Psychiatric: Behavior: Behavior is cooperative. Assessment & PlanTriple vessel coronary artery disease Acute non-ST elevation myocardial infarction (NSTEMI) ([facility]) ([facility]) Tachy-sen syndrome ([facility]/HCC) ([facility]) Tobacco use disorder Peripheral vascular disease ([facility]) Normocytic anemia Compression fracture of T10 vertebra ([facility]) New onset of congestive heart failure ([facility]/HCC) ([facility]) Atrial fibrillation with RVR ([facility]/HCC) ([facility]) Prediabetes Diabetes mellitus ([facility]) Coronary artery disease Cardiac arrest Shock ([facility]) ([facility]) Nonrheumatic mitral valve regurgitation Melena#Multivessel CAD with left main dx. #acute hypoxemic respiratory failure #Pulmonary edema #preop pulmonary edema #CHF #cellulitis #afib RVR #dm2 #htn #tobacco use AVM (arteriovenous malformation) A/P:- CXR looks better, she looks ready for the impella out. Please obtain EKG for her irregular unstable rate/rhythm. - Still off heparin, keep it on hold for now. - Ambulation w/ PT and optimize her condition. Current Diet: NPO Diet NPO except: Sips with meds Jesse Hernandes MD08/14/24 8:37 AM * Quirino Rodarte MD - 08/14/2024 7:42 AM CDT Images from the original note were not included. ID PULMONARY CRITICAL CARE MEDICINE - PROGRESS NOTE [id number] - Nichelle Hampton - 69 y.o. female - : 1955 - - Admit: 07/31/2024 - John Bruno MD - No chief complaint on file. Patient ID: Nichelle Hampton (69 y.o. female) Chief Complaint: No chief complaint on file. Admission Date: 07/31/2024 Referring Physician: Leila Lozano NP Reason for Consult: Critical care management Length of Hospital Stay: 14 days Length of ICU Stay: 7d 9h Assessment & Plan Problem List: Principal Problem: Triple vessel coronary artery disease Active Problems: Acute non-ST elevation myocardial infarction (NSTEMI) (CMS/HCC) ([facility]) Tachy-sen syndrome (CMS/HCC) (HCC) Tobacco use disorder Peripheral vascular disease (HCC) Normocytic anemia Compression fracture of T10 vertebra (HCC) Cardiac arrest (HCC) Shock (CMS/HCC) (HCC) New onset of congestive heart failure (CMS/HCC) (HCC) Atrial fibrillation with RVR (CMS/HCC) (HCC) Prediabetes Coronary artery disease Diabetes mellitus (HCC) Nonrheumatic mitral valve regurgitation Melena AVM (arteriovenous malformation) # Acute decompensated ICMP (HFrEF 45-50%) # NSTEMI/Multivessel CAD (80% left main disease) s/p LM-LAD with SARAH x4 c/b cardiac arrest x2 s/p peripheral VA ECMO (08/06/24, decannulated) # Cardiogenic shock s/p R axillary Impella 5.5 (08/06/24) # Severe mitral regurgitation s/p MitralClip x1 (08/10/24) # Afib with RVR # Acute hypoxic respiratory failure # Cellulitis # Acute GI bleed s/p EGD with bleeding AVMs in the second portion of Duodenum s/p epinephrine, endo clips and application of NEX powder (08/12/24) # Acute on chronic anemia # Acute cardiogenic pulmonary edema # Bilateral pleural effusions # Secondary pulmonary hypertension, group 2 # Minimal upper predominant centrilobular emphysema # Bilateral lower lobe atelectasis # Hypoalbuminemia # Transaminitis # Thrombocytopenia # Tobacco use - Hypertension - Type 2 diabetes mellitus Interval Events: NPO at [place] for Impella decann in AM Drips: Bumex 0.25 bumetanide, 0.25 mg/hr, Last Rate: 0.25 mg/hr (08/14/24 0709) [Held by provider] heparin, 500 Units/hr, Last Rate: Stopped (08/11/24 1900) sodium bicarbonate 25 mEq in dextrose 5 % 1,000 mL infusion, 0.1-40 mL/hr, Last Rate: 10.1 mL/hr (08/14/24 0600) Impella: VAD Impella Pump Data Pump Flow (L/min): 2.4 LPM P level (0-9): 4 Purge Flow: 10.1 Impella Position : 42 Purge Pressure (mmHg) 1: 518 mmHg Impella Catheter Type: 5.5 Motor Current Systolic: 219 Motor Current Diastolic: 157 Motor Current Mean: 187 Ao Placement Signal Systolic: 123 Ao Placement Signal Diastolic: 53 Ao Placement Signal Mean: 78 LV Placement Signal Systolic: 130 LV Placement Signal Diastolic: 8 Neuro/Psych: -Continue daytime cues. Limit benzos/opiates/anticholinergics given high risk for delirium. -Monitor for signs of CVA while on MCS support. CV: -LHC (07/30/24) notable for severe 80% LM disease, and severe multivessel disease. S/p PCI. -S/p MitraClip (08/10/24) -Continue GDMT. -MARQUES demonstrated mild global hypokinesis, reduced EF 45-50% and DCCV (07/30/24). -Continue amiodarone gtt for A-fib with RVR. -Continue Impella 5.5 support. Bridge to recovery. Plan for decannulation possibly tomorrow. -Continue trending lactate. Latest lactate: 0.5 Resp: O2 Delivery Method: CPAP/Bi-PAP mask | O2 Flow Rate (L/min): 2 L/min | | FiO2 (%): 40 % Latest Ref Rng & Units 08/11/2024 9:26 PM 08/11/2024 5:51 PM 08/11/2024 11:31 AM ABG POC A pH 7.35 - 7.45 7.46 7.47 7.45 POC A PCO2 35 - 45 mmHg 31 28 31 POC A PO2 80 - 100 mmHg 88 62 104 POC A HCO3 22 - 26 mMol/L 22 20 22 POC A O2 Sat (leidy) 95 - 100 % 99.9 95.7 99.9 -CT chest (07/31/24) demonstrated small bilateral pleural effusions, greater on the left, dependent consolidative disease with air bronchograms and surrounding groundglass in the bilateral lower lobes. Mild diffuse groundglass is associated with interlobular septal thickening. Scattered bilateral subsegmental atelectasis in both lungs. Minimal upper lobe predominant centrilobular emphysema. -Continue titrating O2 supplement to maintain O2 saturation above 92%. -Continue incentive spirometry. Continue nighttime BiPAP. -Small bilateral pleural effusions (08/13/24) R>L -Much improved CXR today. GI/Nutrition: Orderered Tube Feeds and Supplements Medication Dose Route Frequency Provider Last Rate Last Admin Boost Glucose Control liquid 237 mL 1 Container Oral BID with meals Prateek Guzman MD 237 mL at 08/13/24 1742 NPO Diet NPO except: Sips with meds Last BM Date: 08/13/24 (08/13/241999) -S/p EGD with bleeding AVMs in the second portion of Duodenum s/p epinephrine, endo clips and application of NEX powder (08/12/24) -Continue octreotide -Continue p.o. diet and bowel regimen. -Continue monitoring LFTs. -Continue aspiration precaution. -Monitor for any further GI bleeding. Renal/Electrolytes: Intake/Output Summary (Last 24 hours) at 08/14/2024 0742 Last data filed at 08/14/2024 0600 Gross per 24 hour Intake 1311.66 ml Output 4955 ml Net -3643.34 ml -Monitor urine output and optimize volume status. Holding Bumex gtt at 0.25mg/hr. Give Diamox if serum bicarb >30. -Replete electrolytes as needed. Endo: HbA1c: 6.45 | TSH: 1.224 -Continue insulin sliding scale. -Maintain fingersticks <180. Heme/Onc: Results from last 7 days Lab Units 08/14/24 0450 08/14/24 0201 08/14/24 0200 08/13/24 1848 08/13/24 1240 08/13/24 0423 08/13/24 0112 08/12/24 0842 08/12/24 0336 INR -- 0.99 -- -- -- -- 1.08 -- 1.03 PTT Seconds -- 36.1* -- -- -- -- 38.7* -- 35.5 LD U/L -- -- -- -- -- -- 479* -- 409* HGB PLASMA mg/dL -- -- -- -- -- -- 20 -- <10 PLATELETS 10*3/uL -- -- 190* 172* 152* < > 113* < > 110* POC HEMOGLOBIN, VENOUS g/dL 9.0* -- -- -- -- < > -- < > -- HEMOGLOBIN g/dL -- -- 8.5* 8.2* 8.3* < > 7.1* < > 8.4* < > = values in this interval not displayed. -Continue IV iron and folic acid. -Continue Brilanta. If she continues to have GI bleeding, discussed with cardiology about switching over to Plavix. -Monitor thrombocytopenia with CBCs. -Monitor LDH/plasma hemoglobin for hemolysis. -Monitor H&H and for bleeding. ID: Temp (24hrs), Av.9 ?C (98.4 ?F), Min:36.7 ?C (98.1 ?F), Max:37.2 ?C (99 ?F) Lab Results Component Value Date WBC 12.94 (H) 08/14/2024 WBC 13.39 (H) 08/13/2024 Procalcitonin 1.57 (H) 08/09/2024 Procalcitonin 2.22 (HH) 07/28/2024 MRSA by PCR Negative 08/09/2024 Blood Culture No growth at 5 days 08/07/2024 Respiratory Culture Normal respiratory tonny 08/07/2024 -Culture if febrile. Msk/Skin/Deconditioned: -Continue PT/OT. -Continue wound care and sacral decubitus prevention. ICU Quality: HOB > 30 degrees Restraints: No Stress Ulcer: Continue PPI IV DVT ppx: Start heparin gtt when hemostasis achieved. Lines: Indicated due to caustic medication administration (vasopressors, hypertonic/caustic solutions, chemotherapy). , Indicated due to hemodynamic monitoring in critically ill patient. , Arterial line still indicated for invasive BP monitoring. Perkins: Continue external catheter. Code status: No Order Overall plan: Continue weaning inotropic/vasopressor support and mechanical circulatory support. This patient is critically ill. I spent 35 minutes of critical care time with this patient, not including procedure time. This note was dictated with the use of YellowK[employer]ner speech recognition software. Please excuse any scientific technical writer errors. Quirino Rodarte MD ID Pulmonary Critical Care Faculty History of Present Illness: HISTORY OF PRESENT ILLNESS: Nichelle Hampton is a 69 y.o. female with medical history of hypertension, diabetes mellitus (on no meds), reported history of coronary artery disease and tobacco use, was transferred from [facility] after LHC revealed severe left main disease and multivessel disease. She was originally admitted for hand cellulitis after a spider bite, but during that hospital stay she had hypoxic respiratory failure requiring BiPAP, NSTEMI, possibly newly diagnosed CHF (EF 45-50%), and Afib w/ RVR. She underwent a MARQUES w/ cardioversion. LHC and RHC on 07/31/23 which showed normal filling pressures, LHC which showed 80% mid to distal LM lesion extending into the ostium of LAD, 60-70% mid LAD, diffuse LCx and OM disease, and 70-80% proximal to mid RCA disease. She was transferred to [facility] for revascularizaton. On 08/06/24 she underwent PCI to LM-LAD with SARAH x4 complicated by cardiac arrest x2 where she was cannulated with VA ECMO. 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 Net IO Since Admission: -660.73 mL [08/14/24 0742] REVIEW OF SYSTEMS: Constit: Denies Fever Night sweats HEENT: Denies Headaches Dysphagia Pulm: per Events CV: per Events GI: Denies Abd pain Nausea Vomiting : Denies Hematuria Dysuria MS: Denies Myalgias Fall Neuro: Denies Numbness/Tingling Syncope Skin: Denies New rashes Hemo/Lymph: Denies Jaundice Bleeding History PAST MEDICAL HISTORY: has a past medical history of Diabetes mellitus (HCC). PAST SURGICAL HISTORY: has a past surgical history that includes Esophagogastroduodenoscopy (08/12/2024). FAMILY HISTORY: family history includes Diabetes in her mother; No Known Problems in her father. SOCIAL HISTORY: reports that she quit smoking about 58 years ago. Her smoking use included cigarettes. She uses smokeless tobacco. She reports current alcohol use of about 6.0 standard drinks of alcohol per week. She reports that she does not use drugs. ALLERGIES: has no known allergies. HOME MEDICATIONS: Current Outpatient Medications Medication Instructions Repatha SureClick 140 mg, Subcutaneous, Every 14 days CURRENT MEDICATIONS: Scheduled: amiodarone, 400 mg, Oral, BID Followed by [START ON 08/16/2024] amiodarone, 400 mg, Oral, Daily Followed by [START ON 08/23/2024] amiodarone, 200 mg, Oral, Daily aspirin, 81 mg, Oral, Daily atorvastatin, 40 mg, Oral, Daily Boost Glucose Control, 1 Container, Oral, BID with meals ferric gluconate (Ferrlecit) IVPB, 250 mg, Intravenous, Daily folic acid, 1 mg, Oral, Daily octreotide, 100 mcg, Subcutaneous, TID pantoprazole, 40 mg, Intravenous, q12h DARYL polyethylene glycol (PEG) 3350, 17 g, Oral, Daily sennosides, 1 tablet, Oral, BID thiamine, 100 mg, Nasogastric, Daily ticagrelor, 90 mg, Oral, q12h DARYL vancomycin, 750 mg, Intravenous, q12h Drips:bumetanide, 0.25 mg/hr, Last Rate: 0.25 mg/hr (08/14/24 0709) [Held by provider] heparin, 500 Units/hr, Last Rate: Stopped (08/11/24 1900) sodium bicarbonate 25 mEq in dextrose 5 % 1,000 mL infusion, 0.1-40 mL/hr, Last Rate: 10.1 mL/hr (08/14/24 0600) PRN:PRN medications: calcium gluconate, chlorhexidine, dextrose, dextrose, glucagon, insulin lispro, magnesium sulfate, phenol, potassium & sodium phosphates OR potassium & sodium phosphates, potassium chloride OR potassium chloride OR potassium chloride OR Potassium chloride, sodium chloride, sodium chloride, sodium chloride, sodium phosphates 45 mmol in sodium chloride 0.9 % 100 mL IVPB, traMADol, Pharmacy to dose vancomycin AND Vancomycin Pharmacy Dosing PHYSICAL EXAM:BP (!) 123/59 (BP Location: Right arm, Patient Position: Lying) | Pulse 64 | Temp 36.7 ?C (98.1 ?F) | Resp (!) 30 | Ht 1.6 m (5' 3") | Wt 59.3 kg (130 lb 11.7 oz) | SpO2 99% | BMI 23.16 kg/m? Gen: AAOx3; NAD Neuro: No focal deficits appreciated HEENT: PERRL; EOMI; No scleral icterus CV/Pulses: RRR; 2+ peripheral pulses Pulm: Decreased breath sounds at the bases and No wheezing GI: BS (+); Soft; NTND : Deferred MS: Tone intact Skin/Ext: No changes in lesions; 1+ pitting edema LABS:Lab Results Component Value Date POC V Na 134 (L) 08/14/2024 Sodium Lvl 139 08/14/2024 POC V K 4.1 08/14/2024 Potassium Lvl 4.1 08/14/2024 POC V Cl 99 08/14/2024 Chloride Lvl 101 08/14/2024 CO2 Lvl 29.1 08/14/2024 CO2 Lvl 26.2 08/13/2024 BUN 12 08/14/2024 BUN 14 08/13/2024 Creatinine Lvl 0.63 08/14/2024 Creatinine Lvl 0.68 08/13/2024 POC V Glu 145 (H) 08/14/2024 Glucose Lvl 127 (H) 08/14/2024 Calcium Lvl 8.5 08/14/2024 Magnesium 2.08 08/14/2024 Magnesium 2.31 08/13/2024 Phosphorus Lvl 3.4 08/14/2024 Phosphorus Lvl 3.4 08/13/2024 Albumin Lvl 3.3 (L) 08/14/2024 Albumin Lvl 2.8 (L) 08/13/2024 Protein 6.0 08/14/2024 Protein 5.0 (L) 08/13/2024 ALT 62 (H) 08/14/2024 ALT 60 (H) 08/13/2024 AST 49 (H) 08/14/2024 AST 65 (H) 08/13/2024 Bilirubin Total 1.05 08/14/2024 Bilirubin Total 0.88 08/13/2024 WBC 12.94 (H) 08/14/2024 WBC 13.39 (H) 08/13/2024 POC V Hgb Tot 9.0 (L) 08/14/2024 Hgb 8.5 (L) 08/14/2024 Plt Count 190 (L) 08/14/2024 Plt Count 172 (L) 08/13/2024 INR 0.99 08/14/2024 INR 1.08 08/13/2024 PTT 36.1 (H) 08/14/2024 PTT 38.7 (H) 08/13/2024 LDH Tot 479 (H) 08/13/2024 LDH Tot 409 (H) 08/12/2024 Hgb, Plasma 20 08/13/2024 Hgb, Plasma <10 08/12/2024 Lab ResultsComponent Value Date Pro BNP 17,963 (H) 07/28/2024 Procalcitonin 1.57 (H) 08/09/2024 Procalcitonin 2.22 (HH) 07/28/2024 TSH 1.224 07/28/2024 Hgb A1C 6.45 (H) 07/31/2024 Ferritin Lvl 481 (H) 08/09/2024 Culture Results:No results found for the encounter in last 90 days. IMAGING:Images were reviewed. PFTs: No results found for: "FEV1", "FVC", "PRK2IOJ", "TLC", "DLCO" ECHO:Transesophageal echo (MARQUES) Result Date: 08/12/2024 Left Ventricle: Left ventricle size is normal. Moderately reduced systolic function. Impella catheter is present 7.1 cm into the left ventricle. Intra-procedure Impella was pulled back to 5.0 cm. Right Ventricle: Right ventricle size is normal. Lead present in the right ventricle. Normal systolic function in the right ventricle. Left Atrium: Left atrium is dilated. No thrombus in left atrium or left atrial appendage present. Right Atrium: Right atrium size is normal. Catheter present in the Right atrium Aortic Valve: Aortic valve is trileaflet. No leaflet thickening in the aortic valve. Mild aortic regurgitation present. Mitral Valve: severe mitral regurgitation with impella is reduced intra-procedure. ERO 0.41 cm2, RVol 66 ml, and there is reversal in the left superior and right inferior pulmonary veins. Etiology is mixed involving functional ischemic and posterior prolapse at A3-P3. Posterior leaflet measured 0.87 cm. Tricuspid Valve: Mild tricuspid regurgitation present. Transthoracic echo (TTE) completeResult Date: 08/12/2024 Left Ventricle: Left ventricle size is normal. Findings consistent with concentric hypertrophy. Moderate global hypokinesis present. Moderate to severe reduced systolic function with an estimated EF of 35 - 40%. Unable to assess diastolic function in the left ventricle. Impella catheter is present and located 5.0 cm from the aortic valve. Right Ventricle: Right ventricle size is normal. ICD lead present in the right ventricle. Normal systolic function in the right ventricle. TAPSE is 21 mm. Left Atrium: Left atrium is moderately dilated. LA vol index is 42.70 mL/m2. Right Atrium: Right atrium size is normal. Aortic Valve: Aortic valve is trileaflet. No leaflet thickening in the aortic valve. IVC/SVC: IVC diameter is less than or equal to 21 mm and decreases greater than 50% during inspiration; therefore the estimated right atrial pressure is normal (~3 mmHg). Mitral Valve: Well-seated mitral clip present Mean gradient is 4 mmHg across the mitral valve. Mild mitral regurgitation present with a centrally directed jet. Tricuspid Valve: Mild tricuspid regurgitation present. Pericardium: Trivial pericardial effusion present. Left pleural effusion present. Pulmonic Valve: Trace pulmonic regurgitation present. Aorta: Normal sized aortic root present. Transthoracic echo (TTE) limitedResult Date: 08/10/2024 History of Impella 5.5 Limited study performed for followup. Left Ventricle: Left ventricle size is normal. Moderately reduced systolic function. Tip of Impella device is 7.0 cm into LV cavity from the aortic annulus. Right Ventricle: Right ventricle size is normal. Catheter present in the right ventricle. Normal systolic function in the right ventricle. Tricuspid Valve: Tricuspid valve is structurally normal. Mild tricuspid regurgitation present. Mitral Valve: Mitral valve is structurally normal. Moderate mitral regurgitation present. Aortic Valve: Mild to moderate aortic regurgitation present. Pulmonic Valve: Pulmonic valve not well visualized. IVC/SVC: IVC diameter is normal. Normal respiratory variation. Pericardium: Trivial pericardial effusion present. Left pleural effusion present. Compared with prior study 08/07/2024, there is no significant change in biventricular systolic function. Tip of Impella device has advanced further into LV cavity and severity of mitral regurgitation has increased since last study. Transthoracic echo (TTE) completeResult Date: 08/08/2024 Patient intubated with Impella 5.5 at P8 during exam. Left ventricle is normal in size with concentric hypertrophy. The left ventricular systolic function is globally reduced with an estimated ejection fraction of 35-40%, by biplane method of discs. Apical thrombus is not present verified by the use of Lumason contrast. Impella catheter is present and located 5.5 cm from the aortic valve. Right ventricle is normal in size and systolic function (tricuspid annular planar systolic excursion is 23 mm). There is a catheter in the right ventricle. Left atrium is moderately enlarged in size (left atrial volume index is 43 ml/m2). Right atrium is normal in size. Aortic valve is trileaflet. Impella is traversing the aortic valve. No significant regurgitation. Mitral valve is normal in structure with mild central regurgitation. Tricuspid valve leaflets are normal. There is mild tricuspid regurgitation. Estimated right ventricular systolic pressure is 34 mmHg, assuming a right atrial pressure of 8 mmHg. Pulmonic valve appears normal in structure and function. Aortic root is normal in diameter. Patient is ventilated, cannot use IVC diameter to estimate right atrial pressure. Hepatic veins shows normal flow patterns. A trivial pericardial effusion is seen. There is a large left pleural effusion. Compared to prior echocardiogram dated 07/31/2024, left ventricular function is further reduced and there is an Impella catheter in the left ventricle. Transthoracic echo (TTE) completeResult Date: 07/31/2024 Left Ventricle: Left ventricle size is normal. Findings consistent with eccentric hypertrophy. Mild global hypokinesis present. Mildly reduced systolic function with an estimated EF of 45 - 50%. Grade I diastolic dysfunction of the left ventricle. Apical thrombus is not present verified by the use of contrast. Right Ventricle: Right ventricle size is normal. Normal systolic function in the right ventricle. TAPSE is 19 mm. Pericardium: No pericardial effusion present. Transesophageal echo (MARQUES) with possible cardioversionResult Date: 07/30/2024 Left Ventricle: Left ventricle size is normal. Mild global hypokinesis present. Reduced systolic function with an estimated EF of 45 - 50%. Right Ventricle: Right ventricle size is normal. Normal systolic function in the right ventricle. Left Atrium: Normal sized left atrial appendage. No thrombus in left atrium present. Transthoracic echo (TTE) completeResult Date: 07/28/2024 Patient is in atrial fibrillation with RVR at the time of this study. LV systolic function assessment is suboptimal. Left Ventricle: Left ventricle size is normal. Mild global hypokinesis present. Mildly reduced systolic function with an estimated EF of 45 - 50%. Right Ventricle: Right ventricle size is normal. Normal systolic function in the right ventricle. Left Atrium: Left atrium is moderately dilated. Mitral Valve: Moderate mitral regurgitation present. Tricuspid Valve: Mild to moderate tricuspid regurgitation present. Mild to moderate pulmonary hypertension present. RVSP is 46.00 mmHg. Pericardium: Trivial pericardial effusion present. Left pleural effusion present. * Orestes Agrawal MD - 08/14/2024 7:35 AM CDT AHF ICU PROGRESS NOTE Subjective NAEON I/O: bumex 0.5 Intake/Output Summary (Last 24 hours) at 08/14/2024 0736 Last data filed at 08/14/2024 0600 Gross per 24 hour Intake 1311.66 ml Output 4955 ml Net -3643.34 ml Diuresis: None Drips: amiodarone, Mechanical Support: Impella 5.5 Impella Number of Devices: 1 Location 1: Left ventricle Device 1: 5.5 Power/AC Battery Connected 1: Yes Performance Level (PL) 1: 4 PL Flow (L/min) 1: 2.7 L/min Purge Pressure (mmHg) 1: 518 mmHg [place] Numbers: 5, 28/11 (mean 18), CI 3.0 TTE 08/11/24:EF 35-40%, mild MR, mean gradient of 5 mmHg, TTE 08/07/24: EF 35-40%, normal RV size and function, Impella 5.5 cm in LVcavity, moderate MR, trivial pericardial effusion. [facility] 08/06/2024:Successful LM-LAD PCI with SARAH x4 complicated by PEA arrest with CPR ~15 min before cannulated for VA ECMO; hemodynamic instability and PEA arrest thought to be secondary to high LVEDP/stunning during the case. Acute stent thrombosis secondary to stasis/no pulsatility on repeat angiography after cardiac arrest; successfully treated with PTCA. Occlusive R FIELD MARKETING TEAM LEADER (19Fr) cannula and L FIELD MARKETING TEAM LEADER (9Fr) sheath. DIESEL TRAILER MECHANIC of R SFA not amenable to antegrade sheath. TTE 07/31/2024:Left Ventricle: Left ventricle size is normal. Findings consistent with eccentric hypertrophy. Mild global hypokinesis present. Mildly reduced systolic function with an estimated EF of 45 - 50%. Grade I diastolic dysfunction of the left ventricle. Apical thrombus is not present verified by the use of contrast. Right Ventricle: Right ventricle size is normal. Normal systolic function in the right ventricle. TAPSE is 19 mm. Pericardium: No pericardial effusion present. Latest RHC 07/30/2024:RA: Mean 4 mmHg RV 35/0 with RVEDP 5 mmHg PA 36/12 with mean of 22 mmHg PCWP estimated 12-14 mmHg Tucker: CO 3.4 L/min, CI 2.2 L/m2/min Duplex Arterial Ultrasound 08/06IMPRESSION: 1. Right mid and distal SFA and proximal popliteal artery occlusion. Post occlusion reconstitution distal popliteal, posterior tibial, anterior tibial and dorsalis pedis arteries with low resistance low flow waveform. 2. Left mid and distal SFA occlusion with low resistance low flow with reconstitution within the proximal and distal popliteal, and anterior and posterior tibial and dorsalis pedis arteries. Objective Last Recorded Vitals Blood pressure (!) 123/59, pulse 64, temperature 36.7 ?C (98.1 ?F), resp. rate (!) 30, height 1.6 m (5' 3"), weight 59.3 kg (130 lb 11.7 oz), SpO2 99%. GEN: lying down comfortably, not in acute distressHEENT: normal conjuctivae, anicteric sclera neck: no JVD , supple, normal ROM CV: RRR s1s2 no mrg, pulse +2 resp: CTAB, no wheezing/crackles GI: soft, non tender MSK: no joint swelling or pain to palpation extremities: no edema, clubbing or cyanosis Neuro: AOx3, moving all extremities, speech normal Skin: no new rashes, bruises Assessment & PlanCardiac arrest Shock ([facility]) ([facility]) Nonrheumatic mitral valve regurgitation -- S/p PCI x4 to LM-LAD c/b PEA arrest with 15 minutes of CPR and ECMO cannulation, finding of acute stent thrombosis s/p PTCA > with subsequent Impella 5.5 placement and decannulation of ECMO on 08/06/2024 -Wean pressors/Impella support as able -Moderate MR noted on TTE and at bedside with large V waves on wedge waveform, -S/p YAQUELIN on 08/10 -Patient is not a candidate for advanced therapies given extensive PAD. If impella is removed, no plan for re-insertion. -Remove impella tomorrow -Arterial line not accurate (dampened waveform) -Fixed dose heparin 200 U, keep patient at P3, if flows < 2L go up to P4. AVM (arteriovenous malformation) Melena -IV PPI -GI consulted -Transfuse for Hemoglobin of >7 -Hold heparin. -Increase octreotide to 100 TID Triple vessel coronary artery diseaseAcute non-ST elevation myocardial infarction (NSTEMI) ([facility]) ([facility]) - S/p PCI x4 to LM-LAD c/b PEA arrest with 15 minutes of CPR and ECMO cannulation, > with subsequent Impella 5.5 placement and decannulation of ECMO on 08/06/2024. - Lipids: continue atorvastatin 40 mg PO daily - Antiplatelet: continue aspirin 81 mg PO daily; brilinta 90 mg BID Atrial fibrillation with RVR (CMS/HCC) (HCC)Atypical atrial flutter (CMS/HCC) (HCC) - Anticoagulation: heparin drip while hospitalized; DOAC after procedures/surgery -Restart amiodarone ggt -Small bolus of IV LR in setting of brisk diuresis. -Fixed dose heparin 200 U Compression fracture of T10 vertebra (HCC) - Incidental finding noted on admission CT - No surgical intervention at this time per ortho spine team Peripheral vascular disease (HCC) -Arterial doppler with evidence of PAD with distal reconstitution -9 [place] Sheath removed 08/07 Prediabetes - Sliding scale insulin + [facility] Nghia [facility]elez[facility] [place] [place]: N[place] Diet NPO except: Sips with meds Cardiology Staff Attestation;I have seen and examined the patient with Dr. Velez on 08/14/2024 I have reviewed all the clinical information, lab investigations, radiographic and other imaging data. I agree with findings, assessment and plan as outlined. Treatment plan was formulated under my direct supervision. * EDITH Davis - 08/14/2024 7:30 AM CDT Speech-Language Pathology Encounter Note Patient Name: Nichelle Hampton Today's Date: 08/14/2024 Chart reviewed. Patient remains NPO. Per GI note, low concern for GI bleed. Patient safe to reinitiate INSTRUMENTS SALES REPRESENTATIVE recommended diet of regular solids with thin liquids when cleared by team. INSTRUMENTS SALES REPRESENTATIVE to continue to follow for diet tolerance. Current Diet Texture: NPO EDITH Davis * Francia Tariq OT - 08/13/2024 2:55 PM CDT Treatment Session Note Patient Name: Nichelle Hampton Today's Date: 08/13/2024 Preferred Language: Italian Assessment & Plan Assessment: Pt is demonstrating good progress overall. Pt able to progress to ambulating household distances for ADL performance. Pt is mainly limited by overall deconditioning, decreased functional strength, and decreased FA tolerance. Pt will continue to benefit from skilled OT services to maximize functional independence and safety. Precautions: UE Weight Bearing Status: (NWB RUE) Medical Precautions: (RUE impella; spinal; TLSO when OOB) Post-Surgical Precautions: RUE impella Braces Applied: TLSO Subjective "I haven't done anything like this in a while." Objective Pt presented in semi-livingston's, agreeable to OT tx. Pt on 2L nc and Impella at P4. Lines and room extensively prepped, pt placed on portable TRAM. RN and CN present. Pt rolled L/R Mod A for donning of diaper and TLSO. Pt transferred EOB Mod Ax2. Pt remained seated EOB for several minutes to acclimate. Pt stood and ambulated to sink in room with Min A RW. Pt stood to perform g/h, no LOB noted. Pt brushed teeth set up A. Upon completion of brushing teeth, pt noted to be breathing heavier as if hyperventilating, all VS and Impella flows stable. Pt transferred to chair Min A. Pt reporting feeling anxious with mobility and breathing returned to normal within 1 min of seated RB. Pt combed hair setup A. Pt positioned at bedside in recliner, VS and Impella flows stable, all needs met. General Visit Information: Others Present: OT Taina Marx Self Care (ADL):Self Care/Home Management (ADLs) Time Entry: 43 Grooming Assistance: Setup/clean-up assistance Mobility/Transfers:Bed Mobility Bed Mobility Bed Mobility: Yes Bed Mobility 1 Level of Assistance 1: Partial/Mod assistance Bed Mobility To/From: Roll lying on back to left, Roll lying on back to right Bed Mobility 2 Level of Assistance 2: Partial/Mod assistance Bed Mobility To/From: Supine to sit on EOB TransferTransfers Transfer: Yes Transfer 1 Level of Assistance 1: Partial/Mod assistance Transfer To/From: [id number]-[id number]/[id number], Bed Assistive Devices And Adaptive Equipments: Walker, front-wheeled Transfers 2 Level of Assistance 2: Partial/Mod assistance Transfer To/From: [id number], Chair Assistive Devices And Adaptive Equipments: Walker, front-wheeled TreatmentSelf-Care: Self Care/Home Management (ADLs) Time Entry: 43 Grooming Assistance: Setup/clean-up assistance Bed Mobility:Bed Mobility Bed Mobility: Yes Bed Mobility 1 Level of Assistance 1: Partial/Mod assistance Bed Mobility To/From: Roll lying on back to left, Roll lying on back to right Bed Mobility 2 Level of Assistance 2: Partial/Mod assistance Bed Mobility To/From: Supine to sit on EOB Transfers:Transfers Transfer: Yes Transfer 1 Level of Assistance 1: Partial/Mod assistance Transfer To/From: Nvb-[id number]-Vbhkt/[id number]-qk-Ecf, Bed Assistive Devices And Adaptive Equipments: Walker, front-wheeled Transfers 2 Level of Assistance 2: Partial/Mod assistance Transfer To/From: [id number]/[id number], Chair Assistive Devices And Adaptive Equipments: Walker, front-wheeled MobilityHighest Level of Mobility Performed (JH-HLM): Walked 10 steps or more (i.e. walked to restroom) Goals:Encounter Goals Encounter Goals (Active) Pt will perform OOB ADL routine with no rest breaks required for increased FA tolerance Start: 08/08/24 Expected End: 09/05/24 Pt will perform functional transfers Mod I Start: 08/08/24 Expected End: 09/05/24 Pt will perform toileting Mod I Start: 08/08/24 Expected End: 09/05/24 Treatment Note: If this is the last documented treatment, then it will signify discharge from acute care prior to discharge from the therapy service and will serve as the discharge summary. Francia Tariq OT * Carissa Seay MD - 08/13/2024 2:21 PM CDT Hemotherapy Progress Note HPI: 69 yo female w/ PMH including HTN, DM, CAD and tobacco abuse who was transferred to [facility] for revascularization after LHC at [facility] revealed multivessel disease with severe L main disease. Other relevant events at OSH included cellulitis 2/2 to spider bite and hypoxic respiratory failure requiring bipap, afib RVR and possible new diagnosis of CHF (EF 45-50%). Went for PCI x4 on 08/06 c/b PEA arrest s/p ECMO s/p Impella 5.5 placement. SUBJECTIVE: On Impella support S/p mitral clip on 08/10 Having GI bleeding. IV heparin held. Impella Bicarb purge started. S/P 2 RBCs on 08/11. No transfusions overnight. S/P EGD with clippings pending report On ASA and Brilinta No AC currently due to GI bleed AVM, s/p 5x clips OBJECTIVE: EXAM BP (!) 123/59 (BP Location: Right arm, Patient Position: Lying) | Pulse 62 | Temp 37 ?C (98.6 ?F) | Resp (!) 24 | Ht 1.6 m (5' 3") | Wt 60.6 kg (133 lb 9.6 oz) | SpO2 99% | BMI 23.67 kg/m? Gen: Comfortable, awake and alert Neuro: No focal deficits appreciated HEENT: PERRL; EOMI; No scleral icterus CV/Pulses: RRR; 2+ peripheral pulses Pulm: on HFNC symmetric chest rise GI: Soft; NTND : Deferred MS: Tone intact Skin/Ext: No changes in lesions; 1+ pitting edema LABS: Lab Results Component Value Date Albumin Lvl 2.8 (L) 08/13/2024 Albumin Lvl 2.2 (L) 08/12/2024 Protein 5.0 (L) 08/13/2024 Protein 4.7 (L) 08/12/2024 ALT 60 (H) 08/13/2024 ALT 62 (H) 08/12/2024 AST 65 (H) 08/13/2024 AST 70 (H) 08/12/2024 Bilirubin Total 0.88 08/13/2024 Bilirubin Total 0.70 08/12/2024 WBC 11.64 (H) 08/13/2024 WBC 11.28 (H) 08/13/2024 Hgb 8.3 (L) 08/13/2024 Hgb 7.3 (L) 08/13/2024 Plt Count 152 (L) 08/13/2024 Plt Count 123 (L) 08/13/2024 INR 1.08 08/13/2024 INR 1.03 08/12/2024 PTT 38.7 (H) 08/13/2024 PTT 35.5 08/12/2024 LDH Tot 479 (H) 08/13/2024 LDH Tot 409 (H) 08/12/2024 Hgb, Plasma 20 08/13/2024 Hgb, Plasma <10 08/12/2024 Ferritin Lvl 481 (H) 08/09/2024 Results from last 7 days Lab Units 08/13/24 0112 08/12/24 0336 08/11/24 0410 INR 1.08 1.03 1.12 PTT Seconds 38.7* 35.5 71.1* IMAGING: Images were reviewed. ASSESSMENT AND PLAN: 69 yo female w/ PMH including HTN, DM, CAD and tobacco abuse who was transferred to [facility] for revascularization after LHC at [facility] revealed multivessel disease with severe L main disease. Other relevant events at OSH included cellulitis 2/2 to spider bite and hypoxic respiratory failure requiring bipap, afib RVR and possible new diagnosis of CHF (EF 45-50%). Went for PCI x4 to LM-LAD c/b PEA arrest with 15 minutes of CPR and ECMO cannulation, finding of acute stent thrombosis s/p PTCA > with subsequent Impella 5.5 placement and decannulation of ECMO on 08/06/2024. Anemia/RBC:GI bleeding 1u pRBCs 08/04, 08/06 in OR, 2 on 08/07 and 08/11 Has anemia of chronic disease with underlying GALEN Getting IV iron and PO folic acid Blood Type: O Pos ; Antibody screen: negative Transfuse if Hb < 7/8 mmHg/dL. Platelet:Count is adequate Count has been downtrending due to Impella and GI bleeding On Asa and Brillinta Transfuse if Platelet count < 20K or <50K if actively bleeding. Coagulation:PT/INR is normal PTT elevated due to Heparin. Now held Fibrinogen WNL, transfuse cryoprecipitate for fibrinogen <150 mg/dL Anticoagulation for Impella 5.5:Impella bicarb purge Holding IV heparin due to GI bleed AVM, s/p 5x clips. Will resume when bleeding is no more an issue. Monitor for bleeding. D-dimer, PFH, LDH all stable. Continue to monitor. * Maryjo Benito, PT - 08/13/2024 1:27 PM CDT Encounter Note Patient Name: Nichelle Hampton Today's Date: 08/13/2024 Missed Treatment Time and Reason Missed Time Reason: Other (Comment) (Pt intially scheduled for impella decannulation today, although cancelled 2/2 pleural effusions. Pt working w/ OT on attempt. PT will f/u at next available opportunity.) Maryjo Benito, PT * Shahzad Rg PharmD - 08/13/2024 9:33 AM CDT Clinician Notes: Continue current dose of 750 mg Q12H Next vancomycin level on 08/16 Recommended Dose: 750 mg IV over 1 hour every 12 hours for 2 days Next Dose At: 10:48 on Aug 13 2024 Dosing Interval: 12 hours Infusion Length: 1 hours Dose Valid For: 2 days only Dose Recommendation Method: Individualized model Target Outcome: AUC24: 450 mcg.h/mL Predicted Outcome: AUC24: 428.91 mcg.h/mL Predicted Peak: 24.4 mcg/mL Predicted Trough: 12.6 mcg/mL Predicted AUC24: 428.9 mcg.h/mL Predicted AUC12: 214.5 mcg.h/mL Most Recent Dose: 750 mg over 1 hours at 22:48 on Aug 12 2024 Most Recent SCr: 0.48 mg/dL at 01:12 on Aug 13 2024 Most Recent Blood Concentration: 18.6 mcg/mL at 04:10 on Aug 11 2024 Peak: 24.8 mcg/mL Trough: 12.8 mcg/mL AUC24: 437 mcg.h/mL AUC12: 219 mcg.h/mL * Jesse Hernandes MD - 08/13/2024 9:04 AM CDT HF Surgery Progress Note PMH: 69 yo female w/ PMH including HTN, DM, CAD and tobacco abuse who was transferred to [facility] for revascularization after LHC at [facility] revealed multivessel disease with severe L main disease. Other relevant events at OSH included cellulitis 2/2 to spider bite and hypoxic respiratory failure requiring bipap, afib RVR and possible new diagnosis of CHF (EF 45-50%). 3 high-risk PCI/SARAH x4, complicated by PEA, emergent vaECMO, due to in-stent thrombosis 08/06 Impella 5.5 placement axillary R and vaECMO removal w/ art repair 08/10 YAQUELIN (1x MitraClip), reduction MR 3+ to 2+ 08/12 GI placed 5 clips for multiple angioectasias in the 2nd part of the duodenum (bleeding was observed). Subjective: No melena overnight. NPO since MN for possible impella decannulation, although the CXR looks more congested/possible aspiration post EGD yesterday. CVP 10, PA 39/16 (28), HR 71, MAP 81. [Held by provider] heparin, 500 Units/hr, Last Rate: Stopped (08/11/24 1900) sodium bicarbonate 25 mEq in dextrose 5 % 1,000 mL infusion, 0.1-40 mL/hr, Last Rate: 10.3 mL/hr (08/13/24 0600) Impella P4, 2.7L. Objective Last Recorded Vitals Blood pressure (!) 123/59, pulse 68, temperature 36.8 ?C (98.2 ?F), resp. rate 21, height 1.6 m (5' 3"), weight 60.6 kg (133 lb 9.6 oz), SpO2 96%. Ventricular Assist Device(VAD) Initial VAD Type: LVAD VAD Pump: Impella Impella Device: Impella 5.5 VAD Laterality: Left Pump Flow (L/min): 2.6 VAD P-Level: 4 Placement Signal: 129/52 Motor Current (mA): 220/159 Purge Flow (mL / hr): 10.3 Purge Pressures (mmHg): 488 Site Marker (cm): 43 Pertinent Labs : Lab Results Component Value Date WBC 11.28 (H) 08/13/2024 POC V Hgb Tot 7.6 (L) 08/13/2024 Hgb 7.3 (L) 08/13/2024 POC A Hct (calc) 30.0 (L) 08/11/2024 POC V Hct (calc) 23.0 (L) 08/13/2024 Hct 22.2 (L) 08/13/2024 Plt Count 123 (L) 08/13/2024 Lab Results Component Value Date POC V Na 136 08/13/2024 Sodium Lvl 141 08/13/2024 POC V K 3.6 08/13/2024 Potassium Lvl 3.6 08/13/2024 POC V Cl 109 08/13/2024 Chloride Lvl 111 (H) 08/13/2024 CO2 Lvl 22.2 08/13/2024 BUN 13 08/13/2024 Creatinine Lvl 0.48 (L) 08/13/2024 POC V Glu 104 (H) 08/13/2024 Glucose Lvl 91 08/13/2024 POC Glu 102 (H) 08/13/2024 Lab Results Component Value Date Calcium Lvl 7.8 (L) 08/13/2024 Magnesium 2.06 08/13/2024 Phosphorus Lvl 2.9 08/13/2024 Lab Results Component Value Date AST 65 (H) 08/13/2024 ALT 60 (H) 08/13/2024 Alkaline Phosphatase 114 08/13/2024 Lab Results Component Value Date PTT 38.7 (H) 08/13/2024 Prothrombin Time (PT) 14.2 08/13/2024 INR 1.08 08/13/2024 Physical Exam: Constitutional: Interventions: She is sedated. HENT: Head: Atraumatic. Nose: Nose normal. Mouth/Throat: Mouth: Mucous membranes are moist. Eyes: Extraocular Movements: Extraocular movements intact. Conjunctiva/sclera: Conjunctivae normal. Cardiovascular: Rate and Rhythm: Normal rate and regular rhythm. Heart sounds: Normal heart sounds. Abdominal: General: Bowel sounds are normal. Palpations: Abdomen is soft. Skin: General: Skin is warm. Capillary Refill: Capillary refill takes less than 2 seconds. Neurological: General: No focal deficit present. Psychiatric: Behavior: Behavior is cooperative. Assessment & PlanTriple vessel coronary artery disease Acute non-ST elevation myocardial infarction (NSTEMI) (CMS/HCC) ([facility]) Tachy-sen syndrome (CMS/HCC) ([facility]) Tobacco use disorder Peripheral vascular disease ([facility]) Normocytic anemia Compression fracture of T10 vertebra ([facility]) New onset of congestive heart failure (CMS/HCC) ([facility]) Atrial fibrillation with RVR (CMS/HCC) ([facility]) Prediabetes Diabetes mellitus ([facility]) Coronary artery disease Cardiac arrest ([facility]) Shock (CMS/HCC) ([facility]) Nonrheumatic mitral valve regurgitation Melena#Multivessel CAD with left main dx. #acute hypoxemic respiratory failure #Pulmonary edema #preop pulmonary edema #CHF #cellulitis #afib RVR #dm2 #htn #tobacco use A/P:- Cardiology assessment regarding impella decannulation. CXR more congested/possible aspiration post EGD yesterday. She may need at least another one more day before impella out. The only reason to giang on impella out is the heparin, she had GI bleed and she needs the heparin for the impella. - Ambulation w/ PT and optimize her condition. Current Diet: NPO Diet Jesse Hernandes MD08/13/24 9:04 AM * Orestes Agrawal MD - 08/13/2024 9:04 AM CDT AHF ICU PROGRESS NOTE Subjective NAEON I/O: Intake/Output Summary (Last 24 hours) at 08/13/2024 0904 Last data filed at 08/13/2024 0600 Gross per 24 hour Intake 1391.31 ml Output 2558 ml Net -1166.69 ml Diuresis: None Drips: amiodarone, Mechanical Support: Impella 5.5 Impella Number of Devices: 1 Location 1: Left ventricle Device 1: 5.5 Power/AC Battery Connected 1: Yes Performance Level (PL) 1: 4 PL Flow (L/min) 1: 2.5 L/min Purge Pressure (mmHg) 1: 522 mmHg [place] Numbers: 10, 41/15 (28) on P4, CI 4 TTE 08/11/24:EF 35-40%, mild MR, mean gradient of 5 mmHg, TTE 08/07/24: EF 35-40%, normal RV size and function, Impella 5.5 cm in LVcavity, moderate MR, trivial pericardial effusion. C 08/06/2024:Successful LM-LAD PCI with SARAH x4 complicated by PEA arrest with CPR ~15 min before cannulated for VA ECMO; hemodynamic instability and PEA arrest thought to be secondary to high LVEDP/stunning during the case. Acute stent thrombosis secondary to stasis/no pulsatility on repeat angiography after cardiac arrest; successfully treated with PTCA. Occlusive R FIELD MARKETING TEAM LEADER (19Fr) cannula and L FIELD MARKETING TEAM LEADER (9Fr) sheath. DIESEL TRAILER MECHANIC of R SFA not amenable to antegrade sheath. TTE 07/31/2024:Left Ventricle: Left ventricle size is normal. Findings consistent with eccentric hypertrophy. Mild global hypokinesis present. Mildly reduced systolic function with an estimated EF of 45 - 50%. Grade I diastolic dysfunction of the left ventricle. Apical thrombus is not present verified by the use of contrast. Right Ventricle: Right ventricle size is normal. Normal systolic function in the right ventricle. TAPSE is 19 mm. Pericardium: No pericardial effusion present. Latest RHC 07/30/2024:RA: Mean 4 mmHg RV 35/0 with RVEDP 5 mmHg PA 36/12 with mean of 22 mmHg PCWP estimated 12-14 mmHg Tucker: CO 3.4 L/min, CI 2.2 L/m2/min Duplex Arterial Ultrasound 08/06IMPRESSION: 1. Right mid and distal SFA and proximal popliteal artery occlusion. Post occlusion reconstitution distal popliteal, posterior tibial, anterior tibial and dorsalis pedis arteries with low resistance low flow waveform. 2. Left mid and distal SFA occlusion with low resistance low flow with reconstitution within the proximal and distal popliteal, and anterior and posterior tibial and dorsalis pedis arteries. Objective Last Recorded Vitals Blood pressure (!) 123/59, pulse 68, temperature 36.8 ?C (98.2 ?F), resp. rate 21, height 1.6 m (5' 3"), weight 60.6 kg (133 lb 9.6 oz), SpO2 96%. Physical Exam:GEN: lying down comfortably, not in acute distress HEENT: normal conjuctivae, anicteric sclera neck: no JVD , supple, normal ROM CV: RRR s1s2 no mrg, pulse +2 resp: CTAB, no wheezing/crackles GI: soft, non tender MSK: no joint swelling or pain to palpation extremities: no edema, clubbing or cyanosis Neuro: AOx3, moving all extremities, speech normal Skin: no new rashes, bruises Assessment & PlanCardiac arrest (HCC) Shock ([facility]) ([facility]) Nonrheumatic mitral valve regurgitation -- S/p PCI x4 to LM-LAD c/b PEA arrest with 15 minutes of CPR and ECMO cannulation, finding of acute stent thrombosis s/p PTCA > with subsequent Impella 5.5 placement and decannulation of ECMO on 08/06/2024 -Wean pressors/Impella support as able -Moderate MR noted on TTE and at bedside with large V waves on wedge waveform, -S/p YAQUELIN on 08/10 -Diurese today given congested CXR, re-evaluate for impella today. -Patient is not a candidate for advanced therapies given extensive PAD. If impella is removed, no plan for re-insertion. AVM (arteriovenous malformation) Melena -IV PPI -GI consulted -Transfuse for Hemoglobin of >7 -Hold heparin. -Increase octreotide to 100 TID Triple vessel coronary artery diseaseAcute non-ST elevation myocardial infarction (NSTEMI) ([facility]) ([facility]) - S/p PCI x4 to LM-LAD c/b PEA arrest with 15 minutes of CPR and ECMO cannulation, > with subsequent Impella 5.5 placement and decannulation of ECMO on 08/06/2024. - Lipids: continue atorvastatin 40 mg PO daily - Antiplatelet: continue aspirin 81 mg PO daily; brilinta 90 mg BID Tachy-sen syndrome (CMS/HCC) (HCC)- Likely ischemia-related; will reassess rhythm and rate status after re-vascularization - Continue telemetry monitoring while inpatient Atrial fibrillation with RVR (CMS/HCC) (HCC) - Anticoagulation: heparin drip while hospitalized; DOAC after procedures/surgery -Continue PO amiodarone. Compression fracture of T10 vertebra (HCC) - Incidental finding noted on admission CT - No surgical intervention at this time per ortho spine team Peripheral vascular disease ([facility]) -Arterial doppler with evidence of PAD with distal reconstitution -9 [place] Sheath removed 08/07 Prediabetes - Sliding scale insulin + D[facility] Tiffanie [facility]elez[facility] [place]: NPO Diet Cardiology Staff Attestation;I have seen and examined the patient with Dr. Velez on 08/13/2024 I have reviewed all the clinical information, lab investigations, radiographic and other imaging data. I agree with findings, assessment and plan as outlined. Treatment plan was formulated under my direct supervision. * Quirino Rodarte MD - 08/13/2024 8:53 AM CDT Images from the original note were not included. ID PULMONARY CRITICAL CARE MEDICINE - PROGRESS NOTE [id number] - Nichelle Hampton - 69 y.o. female - : 1955 - - Admit: 07/31/2024 - John Bruno MD - No chief complaint on file. Patient ID: Nichelle Hampton (69 y.o. female) Chief Complaint: No chief complaint on file. Admission Date: 07/31/2024 Referring Physician: Leila Lozano NP Reason for Consult: Critical care management Length of Hospital Stay: 13 days Length of ICU Stay: 6d 14h Assessment & Plan Problem List: Principal Problem: Triple vessel coronary artery disease Active Problems: Acute non-ST elevation myocardial infarction (NSTEMI) (CMS/HCC) ([facility]) Tachy-sen syndrome (CMS/HCC) (HCC) Tobacco use disorder Peripheral vascular disease ([facility]) Normocytic anemia Compression fracture of T10 vertebra ([facility]) Cardiac arrest ([facility]) Shock (CMS/HCC) ([facility]) New onset of congestive heart failure (CMS/HCC) ([facility]) Atrial fibrillation with RVR (CMS/HCC) ([facility]) Prediabetes Coronary artery disease Diabetes mellitus (HCC) Nonrheumatic mitral valve regurgitation Melena AVM (arteriovenous malformation) # Acute decompensated ICMP (HFrEF 45-50%) # NSTEMI/Multivessel CAD (80% left main disease) s/p LM-LAD with SARAH x4 c/b cardiac arrest x2 s/p peripheral VA ECMO (08/06/24, decannulated) # Cardiogenic shock s/p R axillary Impella 5.5 (08/06/24) # Severe mitral regurgitation s/p MitralClip x1 (08/10/24) # Afib with RVR # Acute hypoxic respiratory failure # Cellulitis # Acute GI bleed s/p EGD with bleeding AVMs in the second portion of Duodenum s/p epinephrine, endo clips and application of NEX powder (08/12/24) # Acute on chronic anemia # Acute cardiogenic pulmonary edema # Bilateral pleural effusions # Secondary pulmonary hypertension, group 2 # Minimal upper predominant centrilobular emphysema # Bilateral lower lobe atelectasis # Hypoalbuminemia # Transaminitis # Thrombocytopenia # Tobacco use - Hypertension - Type 2 diabetes mellitus Interval Events: CXR worse this AM. bumetanide, 0.5 mg/hr, Last Rate: 0.5 mg/hr (08/13/24 1100) [Held by provider] heparin, 500 Units/hr, Last Rate: Stopped (08/11/24 1900) sodium bicarbonate 25 mEq in dextrose 5 % 1,000 mL infusion, 0.1-40 mL/hr, Last Rate: 10.3 mL/hr (08/13/24 1106) Impella: VAD Impella Pump Data Pump Flow (L/min): 2.5 LPM P level (0-9): 4 Purge Flow: 10.2 Impella Position : 42 Purge Pressure (mmHg) 1: 485 mmHg Impella Catheter Type: 5.5 Motor Current Systolic: 219 Motor Current Diastolic: 157 Motor Current Mean: 187 Ao Placement Signal Systolic: 118 Ao Placement Signal Diastolic: 53 Ao Placement Signal Mean: 74 LV Placement Signal Systolic: 124 LV Placement Signal Diastolic: 5 Neuro/Psych: -Continue daytime cues. Limit benzos/opiates/anticholinergics given high risk for delirium. -Monitor for signs of CVA while on MCS support. CV: -LHC (07/30/24) notable for severe 80% LM disease, and severe multivessel disease. S/p PCI. -S/p MitraClip (08/10/24) -Continue GDMT. -MARQUES demonstrated mild global hypokinesis, reduced EF 45-50% and DCCV (07/30/24). -Continue amiodarone PO for A-fib. -Continue Impella 5.5 support. Bridge to recovery. Plan for decannulation once CXR has improved. -Continue trending lactate. Latest lactate: 0.6 Resp: O2 Delivery Method: Nasal cannula | O2 Flow Rate (L/min): 2 L/min | | Latest Ref Rng & Units 08/11/2024 9:26 PM 08/11/2024 5:51 PM 08/11/2024 11:31 AM ABG POC A pH 7.35 - 7.45 7.46 7.47 7.45 POC A PCO2 35 - 45 mmHg 31 28 31 POC A PO2 80 - 100 mmHg 88 62 104 POC A HCO3 22 - 26 mMol/L 22 20 22 POC A O2 Sat (leidy) 95 - 100 % 99.9 95.7 99.9 -CT chest (07/31/24) demonstrated small bilateral pleural effusions, greater on the left, dependent consolidative disease with air bronchograms and surrounding groundglass in the bilateral lower lobes. Mild diffuse groundglass is associated with interlobular septal thickening. Scattered bilateral subsegmental atelectasis in both lungs. Minimal upper lobe predominant centrilobular emphysema. -Continue titrating O2 supplement to maintain O2 saturation above 92%. -Continue incentive spirometry. Continue nighttime BiPAP. -Small bilateral pleural effusions (08/13/24) R>L -Evaluate for possible pigtail chest tubes. GI/Nutrition: Orderered Tube Feeds and Supplements Medication Dose Route Frequency Provider Last Rate Last Admin Boost Glucose Control liquid 237 mL 1 Container Oral BID with meals Prateek Guzman MD 237 mL at 08/11/24 0836 Adult Diet Heart Healthy Last BM Date: 08/12/24 (08/12/24 1200) -S/p EGD with bleeding AVMs in the second portion of Duodenum s/p epinephrine, endo clips and application of NEX powder (08/12/24) -Continue octreotide -Continue p.o. diet and bowel regimen. -Continue monitoring LFTs. -Continue aspiration precaution. -Monitor for any further GI bleeding. Renal/Electrolytes: Intake/Output Summary (Last 24 hours) at 08/13/2024 1158 Last data filed at 08/13/2024 1122 Gross per 24 hour Intake 1587.2 ml Output 2958 ml Net -1370.8 ml -Monitor urine output and optimize volume status. Started on Bumex gtt at 0.5mg/hr. -Replete electrolytes as needed. Endo: HbA1c: 6.45 | TSH: 1.224 -Continue insulin sliding scale. -Maintain fingersticks <180. Heme/Onc: Results from last 7 days Lab Units 08/13/24 0717 08/13/24 0423 08/13/24 0112 08/12/24 1914 08/12/24 0842 08/12/24 0336 08/11/24 0421 08/11/24 0410 INR -- -- 1.08 -- -- 1.03 -- 1.12 PTT Seconds -- -- 38.7* -- -- 35.5 -- 71.1* LD U/L -- -- 479* -- -- 409* -- 448* HGB PLASMA mg/dL -- -- 20 -- -- <10 -- 10 PLATELETS 10*3/uL 123* -- 113* 117* < > 110* < > 129* POC HEMOGLOBIN, VENOUS g/dL -- 7.6* -- -- < > -- < > -- HEMOGLOBIN g/dL 7.3* -- 7.1* 7.5* < > 8.4* < > 7.1* < > = values in this interval not displayed. -Continue IV iron and folic acid. -Continue Brilanta. If she continues to have GI bleeding, discussed with cardiology about switching over to Plavix. -Monitor thrombocytopenia with CBCs. -Monitor LDH/plasma hemoglobin for hemolysis. -Monitor H&H and for bleeding. ID: Temp (24hrs), Av.9 ?C (98.5 ?F), Min:36.4 ?C (97.5 ?F), Max:37.5 ?C (99.5 ?F) Lab Results Component Value Date WBC 11.28 (H) 08/13/2024 WBC 11.56 (H) 08/13/2024 Procalcitonin 1.57 (H) 08/09/2024 Procalcitonin 2.22 (HH) 07/28/2024 MRSA by PCR Negative 08/09/2024 Blood Culture No growth at 5 days 08/07/2024 Respiratory Culture Normal respiratory tonny 08/07/2024 -Culture if febrile. Msk/Skin/Deconditioned: -Continue PT/OT. -Continue wound care and sacral decubitus prevention. ICU Quality: HOB > 30 degrees Mech vent support? Yes | Mech vent day(s): Restraints: No Stress Ulcer: Continue PPI IV DVT ppx: Start heparin gtt when hemostasis achieved. Lines: Indicated due to caustic medication administration (vasopressors, hypertonic/caustic solutions, chemotherapy). , Indicated due to hemodynamic monitoring in critically ill patient. , Arterial line still indicated for invasive BP monitoring. Perkins: Continue external catheter. Code status: No Order Overall plan: Continue weaning inotropic/vasopressor support and mechanical circulatory support. This patient is critically ill. I spent 35 minutes of critical care time with this patient, not including procedure time. This note was dictated with the use of [employer] speech recognition software. Please excuse any scientific technical writer errors. Quirino Rodarte MD ID Pulmonary Critical Care Faculty History of Present Illness: HISTORY OF PRESENT ILLNESS: Nichelle Hampton is a 69 y.o. female with medical history of hypertension, diabetes mellitus (on no meds), reported history of coronary artery disease and tobacco use, was transferred from [facility] after LHC revealed severe left main disease and multivessel disease. She was originally admitted for hand cellulitis after a spider bite, but during that hospital stay she had hypoxic respiratory failure requiring BiPAP, NSTEMI, possibly newly diagnosed CHF (EF 45-50%), and Afib w/ RVR. She underwent a MARQUES w/ cardioversion. LHC and RHC on 07/31/23 which showed normal filling pressures, LHC which showed 80% mid to distal LM lesion extending into the ostium of LAD, 60-70% mid LAD, diffuse LCx and OM disease, and 70-80% proximal to mid RCA disease. She was transferred to [facility] for revascularizaton. On 08/06/24 she underwent PCI to LM-LAD with SARAH x4 complicated by cardiac arrest x2 where she was cannulated with VA ECMO. 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 Net IO Since Admission: 2,314.14 mL [08/13/24 1158] REVIEW OF SYSTEMS: Constit: Denies Fever Night sweats HEENT: Denies Headaches Dysphagia Pulm: per Events CV: per Events GI: Denies Abd pain Nausea Vomiting : Denies Hematuria Dysuria MS: Denies Myalgias Fall Neuro: Denies Numbness/Tingling Syncope Skin: Denies New rashes Hemo/Lymph: Denies Jaundice Bleeding History PAST MEDICAL HISTORY: has a past medical history of Diabetes mellitus (HCC). PAST SURGICAL HISTORY: has a past surgical history that includes Esophagogastroduodenoscopy (08/12/2024). FAMILY HISTORY: family history includes Diabetes in her mother; No Known Problems in her father. SOCIAL HISTORY: reports that she quit smoking about 58 years ago. Her smoking use included cigarettes. She uses smokeless tobacco. She reports current alcohol use of about 6.0 standard drinks of alcohol per week. She reports that she does not use drugs. ALLERGIES: has no known allergies. HOME MEDICATIONS: Current Outpatient Medications Medication Instructions Kunal Viveros 140 mg, Subcutaneous, Every 14 days CURRENT MEDICATIONS: Scheduled: amiodarone, 400 mg, Oral, BID Followed by [START ON 08/16/2024] amiodarone, 400 mg, Oral, Daily Followed by [START ON 08/23/2024] amiodarone, 200 mg, Oral, Daily aspirin, 81 mg, Oral, Daily atorvastatin, 40 mg, Oral, Daily Boost Glucose Control, 1 Container, Oral, BID with meals ferric gluconate (Ferrlecit) IVPB, 250 mg, Intravenous, Daily folic acid, 1 mg, Oral, Daily octreotide, 100 mcg, Subcutaneous, TID pantoprazole, 40 mg, Intravenous, q12h DARYL polyethylene glycol (PEG) 3350, 17 g, Oral, Daily sennosides, 1 tablet, Oral, BID thiamine, 100 mg, Nasogastric, Daily ticagrelor, 90 mg, Oral, q12h DARYL vancomycin, 750 mg, Intravenous, q12h Drips:bumetanide, 0.5 mg/hr, Last Rate: 0.5 mg/hr (08/13/24 1100) [Held by provider] heparin, 500 Units/hr, Last Rate: Stopped (08/11/24 1900) sodium bicarbonate 25 mEq in dextrose 5 % 1,000 mL infusion, 0.1-40 mL/hr, Last Rate: 10.3 mL/hr (08/13/24 1106) PRN:PRN medications: calcium gluconate, chlorhexidine, dextrose, dextrose, glucagon, insulin lispro, magnesium sulfate, phenol, potassium & sodium phosphates OR potassium & sodium phosphates, potassium chloride OR potassium chloride OR potassium chloride OR Potassium chloride, sodium chloride, sodium chloride, sodium chloride, sodium phosphates 45 mmol in sodium chloride 0.9 % 100 mL IVPB, traMADol, Pharmacy to dose vancomycin AND Vancomycin Pharmacy Dosing PHYSICAL EXAM:BP (!) 123/59 (BP Location: Right arm, Patient Position: Lying) | Pulse 64 | Temp 36.9 ?C (98.4 ?F) | Resp (!) 28 | Ht 1.6 m (5' 3") | Wt 60.6 kg (133 lb 9.6 oz) | SpO2 96% | BMI 23.67 kg/m? Gen: AAOx3; NAD Neuro: No focal deficits appreciated HEENT: PERRL; EOMI; No scleral icterus CV/Pulses: RRR; 2+ peripheral pulses Pulm: Decreased breath sounds at the bases and No wheezing GI: BS (+); Soft; NTND : Deferred MS: Tone intact Skin/Ext: No changes in lesions; 1+ pitting edema LABS:Lab Results Component Value Date POC V Na 136 08/13/2024 Sodium Lvl 141 08/13/2024 POC V K 3.6 08/13/2024 Potassium Lvl 3.6 08/13/2024 POC V Cl 109 08/13/2024 Chloride Lvl 111 (H) 08/13/2024 CO2 Lvl 22.2 08/13/2024 CO2 Lvl 22.1 08/12/2024 BUN 13 08/13/2024 BUN 18 08/12/2024 Creatinine Lvl 0.48 (L) 08/13/2024 Creatinine Lvl 0.44 (L) 08/12/2024 POC V Glu 104 (H) 08/13/2024 POC Glu 102 (H) 08/13/2024 Calcium Lvl 7.8 (L) 08/13/2024 Magnesium 2.06 08/13/2024 Magnesium 1.91 08/12/2024 Phosphorus Lvl 2.9 08/13/2024 Phosphorus Lvl 2.2 (L) 08/12/2024 Albumin Lvl 2.8 (L) 08/13/2024 Albumin Lvl 2.2 (L) 08/12/2024 Protein 5.0 (L) 08/13/2024 Protein 4.7 (L) 08/12/2024 ALT 60 (H) 08/13/2024 ALT 62 (H) 08/12/2024 AST 65 (H) 08/13/2024 AST 70 (H) 08/12/2024 Bilirubin Total 0.88 08/13/2024 Bilirubin Total 0.70 08/12/2024 WBC 11.28 (H) 08/13/2024 WBC 11.56 (H) 08/13/2024 POC V Hgb Tot 7.6 (L) 08/13/2024 Hgb 7.3 (L) 08/13/2024 Plt Count 123 (L) 08/13/2024 Plt Count 113 (L) 08/13/2024 INR 1.08 08/13/2024 INR 1.03 08/12/2024 PTT 38.7 (H) 08/13/2024 PTT 35.5 08/12/2024 LDH Tot 479 (H) 08/13/2024 LDH Tot 409 (H) 08/12/2024 Hgb, Plasma 20 08/13/2024 Hgb, Plasma <10 08/12/2024 Lab ResultsComponent Value Date Pro BNP 17,963 (H) 07/28/2024 Procalcitonin 1.57 (H) 08/09/2024 Procalcitonin 2.22 (HH) 07/28/2024 TSH 1.224 07/28/2024 Hgb A1C 6.45 (H) 07/31/2024 Ferritin Lvl 481 (H) 08/09/2024 Culture Results:No results found for the encounter in last 90 days. IMAGING:Images were reviewed. PFTs: No results found for: "FEV1", "FVC", "BPC5BPR", "TLC", "DLCO" ECHO:Transesophageal echo (MARQUES) Result Date: 08/12/2024 Left Ventricle: Left ventricle size is normal. Moderately reduced systolic function. Impella catheter is present 7.1 cm into the left ventricle. Intra-procedure Impella was pulled back to 5.0 cm. Right Ventricle: Right ventricle size is normal. Lead present in the right ventricle. Normal systolic function in the right ventricle. Left Atrium: Left atrium is dilated. No thrombus in left atrium or left atrial appendage present. Right Atrium: Right atrium size is normal. Catheter present in the Right atrium Aortic Valve: Aortic valve is trileaflet. No leaflet thickening in the aortic valve. Mild aortic regurgitation present. Mitral Valve: severe mitral regurgitation with impella is reduced intra-procedure. ERO 0.41 cm2, RVol 66 ml, and there is reversal in the left superior and right inferior pulmonary veins. Etiology is mixed involving functional ischemic and posterior prolapse at A3-P3. Posterior leaflet measured 0.87 cm. Tricuspid Valve: Mild tricuspid regurgitation present. Transthoracic echo (TTE) completeResult Date: 08/12/2024 Left Ventricle: Left ventricle size is normal. Findings consistent with concentric hypertrophy. Moderate global hypokinesis present. Moderate to severe reduced systolic function with an estimated EF of 35 - 40%. Unable to assess diastolic function in the left ventricle. Impella catheter is present and located 5.0 cm from the aortic valve. Right Ventricle: Right ventricle size is normal. ICD lead present in the right ventricle. Normal systolic function in the right ventricle. TAPSE is 21 mm. Left Atrium: Left atrium is moderately dilated. LA vol index is 42.70 mL/m2. Right Atrium: Right atrium size is normal. Aortic Valve: Aortic valve is trileaflet. No leaflet thickening in the aortic valve. IVC/SVC: IVC diameter is less than or equal to 21 mm and decreases greater than 50% during inspiration; therefore the estimated right atrial pressure is normal (~3 mmHg). Mitral Valve: Well-seated mitral clip present Mean gradient is 4 mmHg across the mitral valve. Mild mitral regurgitation present with a centrally directed jet. Tricuspid Valve: Mild tricuspid regurgitation present. Pericardium: Trivial pericardial effusion present. Left pleural effusion present. Pulmonic Valve: Trace pulmonic regurgitation present. Aorta: Normal sized aortic root present. Transthoracic echo (TTE) limitedResult Date: 08/10/2024 History of Impella 5.5 Limited study performed for followup. Left Ventricle: Left ventricle size is normal. Moderately reduced systolic function. Tip of Impella device is 7.0 cm into LV cavity from the aortic annulus. Right Ventricle: Right ventricle size is normal. Catheter present in the right ventricle. Normal systolic function in the right ventricle. Tricuspid Valve: Tricuspid valve is structurally normal. Mild tricuspid regurgitation present. Mitral Valve: Mitral valve is structurally normal. Moderate mitral regurgitation present. Aortic Valve: Mild to moderate aortic regurgitation present. Pulmonic Valve: Pulmonic valve not well visualized. IVC/SVC: IVC diameter is normal. Normal respiratory variation. Pericardium: Trivial pericardial effusion present. Left pleural effusion present. Compared with prior study 08/07/2024, there is no significant change in biventricular systolic function. Tip of Impella device has advanced further into LV cavity and severity of mitral regurgitation has increased since last study. Transthoracic echo (TTE) completeResult Date: 08/08/2024 Patient intubated with Impella 5.5 at P8 during exam. Left ventricle is normal in size with concentric hypertrophy. The left ventricular systolic function is globally reduced with an estimated ejection fraction of 35-40%, by biplane method of discs. Apical thrombus is not present verified by the use of Lumason contrast. Impella catheter is present and located 5.5 cm from the aortic valve. Right ventricle is normal in size and systolic function (tricuspid annular planar systolic excursion is 23 mm). There is a catheter in the right ventricle. Left atrium is moderately enlarged in size (left atrial volume index is 43 ml/m2). Right atrium is normal in size. Aortic valve is trileaflet. Impella is traversing the aortic valve. No significant regurgitation. Mitral valve is normal in structure with mild central regurgitation. Tricuspid valve leaflets are normal. There is mild tricuspid regurgitation. Estimated right ventricular systolic pressure is 34 mmHg, assuming a right atrial pressure of 8 mmHg. Pulmonic valve appears normal in structure and function. Aortic root is normal in diameter. Patient is ventilated, cannot use IVC diameter to estimate right atrial pressure. Hepatic veins shows normal flow patterns. A trivial pericardial effusion is seen. There is a large left pleural effusion. Compared to prior echocardiogram dated 07/31/2024, left ventricular function is further reduced and there is an Impella catheter in the left ventricle. Transthoracic echo (TTE) completeResult Date: 07/31/2024 Left Ventricle: Left ventricle size is normal. Findings consistent with eccentric hypertrophy. Mild global hypokinesis present. Mildly reduced systolic function with an estimated EF of 45 - 50%. Grade I diastolic dysfunction of the left ventricle. Apical thrombus is not present verified by the use of contrast. Right Ventricle: Right ventricle size is normal. Normal systolic function in the right ventricle. TAPSE is 19 mm. Pericardium: No pericardial effusion present. Transesophageal echo (MARQUSE) with possible cardioversionResult Date: 07/30/2024 Left Ventricle: Left ventricle size is normal. Mild global hypokinesis present. Reduced systolic function with an estimated EF of 45 - 50%. Right Ventricle: Right ventricle size is normal. Normal systolic function in the right ventricle. Left Atrium: Normal sized left atrial appendage. No thrombus in left atrium present. Transthoracic echo (TTE) completeResult Date: 07/28/2024 Patient is in atrial fibrillation with RVR at the time of this study. LV systolic function assessment is suboptimal. Left Ventricle: Left ventricle size is normal. Mild global hypokinesis present. Mildly reduced systolic function with an estimated EF of 45 - 50%. Right Ventricle: Right ventricle size is normal. Normal systolic function in the right ventricle. Left Atrium: Left atrium is moderately dilated. Mitral Valve: Moderate mitral regurgitation present. Tricuspid Valve: Mild to moderate tricuspid regurgitation present. Mild to moderate pulmonary hypertension present. RVSP is 46.00 mmHg. Pericardium: Trivial pericardial effusion present. Left pleural effusion present. * EDITH Davis - 08/13/2024 8:15 AM CDT Speech-Language Pathology Encounter Note Patient Name: Nichelle Hampton Today's Date: 08/13/2024 Missed Treatment Time and Reason Chart reviewed. Per EMR, patient NPO for Impella Decannulation. Patient safe to initiate INSTRUMENTS SALES REPRESENTATIVE recommended diet of regular solids with thin liquids when appropriate. INSTRUMENTS SALES REPRESENTATIVE to continue to follow for diet tolerance. Current Diet Texture: NPO EDITH Davis * Michael Jeffries DO - 08/12/2024 11:43 AM CDT Hemotherapy Progress Note HPI: 69 yo female w/ PMH including HTN, DM, CAD and tobacco abuse who was transferred to [facility] for revascularization after LHC at [facility] revealed multivessel disease with severe L main disease. Other relevant events at OSH included cellulitis 2/2 to spider bite and hypoxic respiratory failure requiring bipap, afib RVR and possible new diagnosis of CHF (EF 45-50%). Went for PCI x4 on 08/06 c/b PEA arrest s/p ECMO s/p Impella 5.5 placement. SUBJECTIVE: On Impella support S/p mitral clip on 08/10 Having GI bleeding. IV heparin held. Impella Bicarb purge started. S/P 2 RBCs on 08/11. No transfusions overnight. S/P EGD with clippings pending report On ASA and Brilinta OBJECTIVE: EXAM BP (!) 123/59 (BP Location: Right arm, Patient Position: Lying) | Pulse 64 | Temp 36.8 ?C (98.2 ?F) | Resp 21 | Ht 1.6 m (5' 3") | Wt 61.6 kg (135 lb 12.9 oz) | SpO2 100% | BMI 24.06 kg/m? Gen: Comfortable, awake and alert Neuro: No focal deficits appreciated HEENT: PERRL; EOMI; No scleral icterus CV/Pulses: RRR; 2+ peripheral pulses Pulm: on HFNC symmetric chest rise GI: Soft; NTND : Deferred MS: Tone intact Skin/Ext: No changes in lesions; 1+ pitting edema LABS: Lab Results Component Value Date Albumin Lvl 2.2 (L) 08/12/2024 Albumin Lvl 2.2 (L) 08/11/2024 Protein 4.7 (L) 08/12/2024 Protein 4.7 (L) 08/11/2024 ALT 62 (H) 08/12/2024 ALT 53 (H) 08/11/2024 AST 70 (H) 08/12/2024 AST 84 (H) 08/11/2024 Bilirubin Total 0.70 08/12/2024 Bilirubin Total 0.46 08/11/2024 WBC 9.42 08/12/2024 WBC 9.28 08/12/2024 Hgb 8.1 (L) 08/12/2024 Hgb 8.4 (L) 08/12/2024 Plt Count 109 (L) 08/12/2024 Plt Count 110 (L) 08/12/2024 INR 1.03 08/12/2024 INR 1.12 08/11/2024 PTT 35.5 08/12/2024 PTT 71.1 (H) 08/11/2024 LDH Tot 409 (H) 08/12/2024 LDH Tot 448 (H) 08/11/2024 Hgb, Plasma <10 08/12/2024 Hgb, Plasma 10 08/11/2024 Ferritin Lvl 481 (H) 08/09/2024 Results from last 7 days Lab Units 08/12/24 0336 08/11/24 0410 08/10/24 2131 INR 1.03 1.12 1.02 PTT Seconds 35.5 71.1* 85.6* IMAGING: Images were reviewed. ASSESSMENT AND PLAN: 69 yo female w/ PMH including HTN, DM, CAD and tobacco abuse who was transferred to [facility] for revascularization after LHC at [facility] revealed multivessel disease with severe L main disease. Other relevant events at OSH included cellulitis 2/2 to spider bite and hypoxic respiratory failure requiring bipap, afib RVR and possible new diagnosis of CHF (EF 45-50%). Went for PCI x4 to LM-LAD c/b PEA arrest with 15 minutes of CPR and ECMO cannulation, finding of acute stent thrombosis s/p PTCA > with subsequent Impella 5.5 placement and decannulation of ECMO on 08/06/2024. Anemia/RBC:GI bleeding 1u pRBCs 08/04, 08/06 in OR, 2 on 08/07 and 08/11 Has anemia of chronic disease with underlying GALEN Getting IV iron and PO folic acid Blood Type: O Pos ; Antibody screen: negative Transfuse if Hb < 7/8 mmHg/dL. Platelet:Count is adequate Count has been downtrending due to Impella and GI bleeding On Asa and Brillinta Transfuse if Platelet count < 20K or <50K if actively bleeding. Coagulation:PT/INR is normal PTT elevated due to Heparin. Now held Fibrinogen WNL, transfuse cryoprecipitate for fibrinogen <150 mg/dL Anticoagulation for Impella 5.5:Impella bicarb purge Holding IV heparin for another 24 hours. Monitor for bleeding. D-dimer, PFH, LDH all stable. Continue to monitor. * Jesse Hernandes MD - 08/12/2024 10:40 AM CDT HF Surgery Progress Note PMH: 69 yo female w/ PMH including HTN, DM, CAD and tobacco abuse who was transferred to [facility] for revascularization after LHC at [facility] revealed multivessel disease with severe L main disease. Other relevant events at OSH included cellulitis 2/2 to spider bite and hypoxic respiratory failure requiring bipap, afib RVR and possible new diagnosis of CHF (EF 45-50%). 08/06 high-risk PCI/SARAH x4, complicated by PEA, emergent vaECMO, due to in-stent thrombosis 08/06 Impella 5.5 placement axillary R and vaECMO removal w/ art repair 08/10 YAQUELIN (1x MitraClip), reduction MR 3+ to 2+ Subjective: Melena yesterday, GI consulted. NPO since MN for EGD in AM. Received RBC x2 yesterday. Hb 8.1 from 9.2 in 12hrs. CVP 9. CXR looks better and less congested today. amiodarone, 0.5 mg/min, Last Rate: 0.5 mg/min (08/12/24 0953) amiodarone in D5W 500 mL, , Last Rate: 1 mg/min (08/06/24 182) EPINEPHrine, , Last Rate: 3 mcg/min (08/06/24 190) [Held by provider] heparin, 500 Units/hr, Last Rate: Stopped (08/11/24 1900) norepinephrine, , Last Rate: Stopped (08/06/24 1939) potassium chloride, , Last Rate: 20 mEq (08/06/24 1727) sodium bicarbonate 25 mEq in dextrose 5 % 1,000 mL infusion, 0.1-40 mL/hr, Last Rate: 11.3 mL/hr (08/12/24 0600) sodium chloride, , Last Rate: Stopped (08/09/24 0645) Impella P5, 3L. Objective Last Recorded Vitals Blood pressure (!) 123/59, pulse 64, temperature 36.8 ?C (98.2 ?F), resp. rate 21, height 1.6 m (5' 3"), weight 61.6 kg (135 lb 12.9 oz), SpO2 100%. Ventricular Assist Device(VAD) Initial VAD Type: LVAD VAD Pump: Impella Impella Device: Impella 5.5 VAD Laterality: Left Pump Flow (L/min): 3 VAD P-Level: 5 Placement Signal: 134/67/86 Motor Current (mA): 270/497/237 Purge Flow (mL / hr): 10.8 Purge Pressures (mmHg): 497 Site Marker (cm): 43 Pertinent Labs : Lab Results Component Value Date WBC 9.42 08/12/2024 POC V Hgb Tot 10.2 (L) 08/11/2024 Hgb 8.1 (L) 08/12/2024 POC A Hct (calc) 30.0 (L) 08/11/2024 Hct 24.1 (L) 08/12/2024 Plt Count 109 (L) 08/12/2024 Lab Results Component Value Date POC V Na 135 08/11/2024 POC A Na 133 (L) 08/11/2024 Sodium Lvl 142 08/12/2024 POC V K 3.7 08/11/2024 POC A K 3.6 08/11/2024 Potassium Lvl 3.7 08/12/2024 POC V Cl 109 08/11/2024 POC Chloride 108 08/11/2024 Chloride Lvl 112 (H) 08/12/2024 CO2 Lvl 22.1 08/12/2024 BUN 18 08/12/2024 Creatinine Lvl 0.44 (L) 08/12/2024 POC V Glu 137 (H) 08/11/2024 POC A Glu 128 (H) 08/11/2024 Glucose Lvl 131 (H) 08/12/2024 POC Glu 129 (H) 08/12/2024 Lab Results Component Value Date Calcium Lvl 7.6 (L) 08/12/2024 Magnesium 1.91 08/12/2024 Phosphorus Lvl 2.2 (L) 08/12/2024 Lab Results Component Value Date AST 70 (H) 08/12/2024 ALT 62 (H) 08/12/2024 Alkaline Phosphatase 116 08/12/2024 Lab Results Component Value Date PTT 35.5 08/12/2024 Prothrombin Time (PT) 13.7 08/12/2024 INR 1.03 08/12/2024 Physical Exam: Constitutional: Interventions: She is sedated and intubated. HENT: Head: Atraumatic. Nose: Nose normal. Mouth/Throat: Mouth: Mucous membranes are moist. Eyes: Extraocular Movements: Extraocular movements intact. Conjunctiva/sclera: Conjunctivae normal. Cardiovascular: Rate and Rhythm: Normal rate and regular rhythm. Heart sounds: Normal heart sounds. Pulmonary: Effort: She is intubated. Abdominal: General: Bowel sounds are normal. Palpations: Abdomen is soft. Skin: General: Skin is warm. Capillary Refill: Capillary refill takes less than 2 seconds. Neurological: General: No focal deficit present. Psychiatric: Behavior: Behavior is cooperative. Assessment & PlanTriple vessel coronary artery disease Acute non-ST elevation myocardial infarction (NSTEMI) (CMS/HCC) ([facility]) Tachy-sen syndrome (CMS/HCC) (HCC) Tobacco use disorder Peripheral vascular disease ([facility]) Normocytic anemia Compression fracture of T10 vertebra (HCC) New onset of congestive heart failure (CMS/HCC) ([facility]) Atrial fibrillation with RVR (CMS/HCC) ([facility]) Prediabetes Diabetes mellitus (HCC) Coronary artery disease Cardiac arrest ([facility]) Shock (CMS/HCC) ([facility]) Nonrheumatic mitral valve regurgitation Melena#Multivessel CAD with left main dx. #acute hypoxemic respiratory failure #Pulmonary edema #preop pulmonary edema #CHF #cellulitis #afib RVR #dm2 #htn #tobacco use A/P:- Keep Impella P5, wean slowly. CXR looks less congested. - GI bedside for endoscopy. - Ambulation w/ PT and optimize her condition. Current Diet: NPO Diet Jesse Hernandes MD08/12/24 10:40 AM * Dino Domínguez MD - 08/12/2024 9:15 AM CDT ID PULMONARY CRITICAL CARE MEDICINE - NoteType: PROGRESS NOTE Patient ID: @[email or web address]@ is a 69 y.o. female. Chief Complaint: No chief complaint on file. Admission date: 07/31/2024 Referring Physician: Leila Lozano NP Reason for Consult: Reason For Consult: Critical care management Interval events S/p 3 Bms yesterday but non overnight S/p 2 RBC during daytime, none overnight Impella p-5, CVP 9 NC at 2 L ASSESSMENT/PLAN: Problem List: Principal Problem: Triple vessel coronary artery disease Active Problems: Acute non-ST elevation myocardial infarction (NSTEMI) (CMS/HCC) ([facility]) Tachy-sen syndrome (CMS/HCC) ([facility]) Tobacco use disorder Peripheral vascular disease (HCC) Normocytic anemia Compression fracture of T10 vertebra (HCC) Cardiac arrest (HCC) Shock (CMS/HCC) (HCC) New onset of congestive heart failure (CMS/HCC) (HCC) Atrial fibrillation with RVR (CMS/HCC) (HCC) Prediabetes Coronary artery disease Diabetes mellitus (HCC) Nonrheumatic mitral valve regurgitation Melena Problem List[1] Principal Problem: Triple vessel coronary artery disease Active Problems: Acute non-ST elevation myocardial infarction (NSTEMI) (CMS/HCC) (HCC) Tachy-sen syndrome (CMS/HCC) (HCC) Tobacco use disorder Peripheral vascular disease (HCC) Normocytic anemia Acute hypoxic respiratory failure (HCC) New onset of congestive heart failure (CMS/HCC) (HCC) Atrial fibrillation with RVR (CMS/HCC) (HCC) Prediabetes Diabetes mellitus (HCC) #Multivessel CAD with left main dx. #acute hypoxemic respiratory failure #Pulmonary edema #preop pulmonary edema #CHF #cellulitis #afib RVR #dm2 #htn #tobacco use Assessment: 69 yo female w/ PMH including HTN, DM, CAD and tobacco abuse who was transferred to [facility] for revascularization after LHC at [facility] revealed multivessel disease with severe L main disease. Other relevant events at OSH included cellulitis 2/2 to spider bite and hypoxic respiratory failure requiring bipap, afib RVR and possible new diagnosis of CHF (EF 45-50%). Neuro/Psych: -Delirium precautions - start pain meds: tylenol and robaxin, gabapentin CV: - LHC (07/30/24) notable for severe 80% LM disease, and severe multivessel disease. She declined CABG, plan is for high risk PCI - Cont. Asa and atorvastatin - MARQUES, mild global hypokinesis, reduced EF 45-50% and DCCV (07/30/24). - amio gtt for afib - s/p impella 5.5, bridge to recovery. - s/p mitral clip 08/10 Resp: - wean supplemental oxygen, wean as tolerated to maintain spo2 >92% - CT chest (07/31)- Small bilateral pleural effusions, greater on the left. Dependent consolidative opacities with air bronchogram and surrounding groundglass in the bilateral lower lobes. Mild diffuse groundglass is associated with interlobular septal thickening. Scattered bilateral subsegmental atelectasis in both lungs. Minimal upper lobe predominant centrilobular emphysema. - PFT(07/31) - Restrictive ventilatory defect likely in setting of pulmonary edema and opacities seen on CT chest. - CXR with pulmonary congestion and pleural effusion; minimal o2 requirement, no need for drainage - bipap at night for volume expansion - IS and VEP - on room air but high risk for decompensation given GIB - worsening CXR due to fluid overload and pleural effusion, will await diuresis. High risk for thora given DAPT - diuresis today GI/Nutrition: - NPO - PPI BID - EGD today - LFTs improving - bowel regimen Renal/Electrolytes: - UOP is good, - 1 dose diuretic today - Replace electrolytes per unit protocol - Monitor I/Os Endo: Lab Results Component Value Date Hgb A1C 6.45 (H) 07/31/2024 TSH 1.224 07/28/2024 - BG goal 120 - 180, SSI as needed - SSI Heme/Onc: -monitor For bleeding and coagulopathies - Transfuse to maintain hgb >7 - hold impella heparin and systemic AC till GI bleeding is controlled and hgb stabilized - last transfusion on 08/11, ID: - dc cefepime, all cx are negative - MRSA swab is negative - pending final resp cultures - keep vanc for device ppx Msk/Skin/Deconditioned: - Consult PT/OT. - Continue wound care and sacral decubitus prevention. To Do - EGD - 1 dose diuretic - possibly restarting low dose AC - ICU quality > DVT prophylaxis: heparin gtt, SCD > PPI prophylaxis: start PPI > Nutrition/glucose control: SSI, BG 120-180 > Line and tubes: continue lines while attempting impelal weaning > Perkins catheter: remove perkins > Sedation: off > Date of intubation: 08/06 > Restraints: NA This patient is critically ill. I spent 40 minutes of critical care time with this patient, not including procedure time Dino Domínguez MD [facility] Pulmonary and Critical Care Medicine MSO# [id number] HISTORY OF PRESENT ILLNESS: NO Hampton is a 69 y.o. female with past medical history of hypertension, diabetes mellitus (on no meds), reported history of coronary artery disease and tobacco use, was transferred from [facility] after LHC revealed severe left main disease and multivessel disease. She was originally admitted for hand cellulitis after a spider bite, but during that hospital stay she had hypoxic respiratory failure requiring BiPAP, NSTEMI, possibly newly diagnosed CHF (EF 45-50%), and Afib w/ RVR. She underwent a AMRQUES w/ cardioversion. LHC and RHC on 07/31/23 which showed normal filling pressures, LHC which showed 80% mid to distal LM lesion extending into the ostium of LAD, 60-70% mid LAD, diffuse LCx and OM disease, and 70-80% proximal to mid RCA disease. She was transferred to [facility] for revascularizaton. On 08/06 she underwent PCI to LM-LAD with SARAH x4 complicated by cardiac arrest x2 where she was cannulated with VA ECMO. 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 No data found. Enter data into the [facility] Mental Health Specialist navigator to see it here. PAST MEDICAL HISTORY: Medical History[2] PAST SURGICAL HISTORY: Surgical History[3] FAMILY HISTORY: Family History[4] SOCIAL HISTORY: Social History Socioeconomic History Marital status: Spouse name: Not on file Number of children: Not on file Years of education: Not on file Highest education level: Not on file Occupational History Not on file Tobacco Use Smoking status: Former Current packs/day: 0.00 Types: Cigarettes Quit date: 1967 Years since quittin.2 Smokeless tobacco: Current Tobacco comments: PATIENT VERBALIZED "WELL NOW THAT I AM IN THE HOSPITAL, I CAN'T REALLY SMOKE Vaping Use Vaping status: Not on file Substance and Sexual Activity Alcohol use: Yes Alcohol/week: 6.0 standard drinks of alcohol Types: 6 Cans of beer per week Comment: [place] EVERYOTHER WEEKEND Drug use: Never Sexual activity: Not Currently Other Topics Concern Not on file Social History Narrative Not on file Social Drivers of Health Financial Resource Strain: Not on file Food Insecurity: No Food Insecurity (07/31/2024) Hunger Vital Sign Worried About Running Out of Food in the Last Year: Never true Ran Out of Food in the Last Year: Never true Transportation Needs: No Transportation Needs (07/31/2024) PRAPARE - Transportation Lack of Transportation (Medical): No Lack of Transportation (Non-Medical): No Physical Activity: Not on file Stress: Not on file Social Connections: Not on file Intimate Partner Violence: Not At Risk (07/31/2024) Humiliation, Afraid, Rape, and Kick questionnaire Fear of Current or Ex-Partner: No Emotionally Abused: No Physically Abused: No Sexually Abused: No Housing Stability: Low Risk (07/31/2024) Housing Stability Vital Sign Unable to Pay for Housing in the Last Year: No Number of Times Moved in the Last Year: 0 Homeless in the Last Year: No ALLERGIES: Allergies[5] HOME MEDICATIONS:Medication Documentation Review Audit Reviewed by Aracelis Chavez RN (Registered Nurse) on 08/09/24 at 0722 Medication Order Taking? Sig Documenting Provider Last Dose Statusevolocumab (Repatha SureClick) 140 MG/ML Subcutaneous Solution Auto-injector [id number] Inject 1 mL under the skin every 14 days. Leila Lozano, HAILEY Active acetaminophen, 650 mg, Oral, q6h [Held by provider] amiodarone, 200 mg, Oral, BID aspirin, 81 mg, Oral, Daily atorvastatin, 40 mg, Oral, Daily Boost Glucose Control, 1 Container, Oral, BID with meals ferric gluconate (Ferrlecit) IVPB, 250 mg, Intravenous, Daily folic acid, 1 mg, Oral, Daily pantoprazole, 40 mg, Intravenous, q12h DARYL polyethylene glycol (PEG) 3350, 17 g, Oral, Daily sennosides, 1 tablet, Oral, BID thiamine, 100 mg, Nasogastric, Daily ticagrelor, 90 mg, Oral, q12h DARYL vancomycin, 750 mg, Intravenous, q12h amiodarone, 0.5 mg/min, Last Rate: 0.5 mg/min (03/23/25 0600)amiodarone in D5W 500 mL, , Last Rate: 1 mg/min (08/06/241823) EPINEPHrine, , Last Rate: 3 mcg/min (08/06/241908) [Held by provider] heparin, 500 Units/hr, Last Rate: Stopped (08/11/241899) norepinephrine, , Last Rate: Stopped (08/06/241938) potassium chloride, , Last Rate: 20 mEq (08/06/241726) sodium bicarbonate 25 mEq in dextrose 5 % 1,000 mL infusion, 0.1-40 mL/hr, Last Rate: 11.3 mL/hr (08/12/24599) sodium chloride, , Last Rate: Stopped (08/09/24644) PRN medications: amiodarone in D5W 500 mL, calcium gluconate, chlorhexidine, dextrose, dextrose, EPINEPHrine, glucagon, insulin lispro, magnesium sulfate, norepinephrine, phenol, potassium & sodium phosphates OR potassium & sodium phosphates, potassium chloride OR potassium chloride OR potassium chloride OR Potassium chloride, potassium chloride, sodium chloride, sodium chloride, sodium chloride, sodium chloride, sodium chloride, sodium phosphates 45 mmol in sodium chloride 0.9 % 100 mL IVPB, traMADol, Pharmacy to dose vancomycin AND Vancomycin Pharmacy Dosing PHYSICAL EXAM:Gen: intubated, sedated Neuro: No focal deficits appreciated HEENT: PERRL; EOMI; No scleral icterus CV/Pulses: PE_CV: RRR; 2+ peripheral pulses Pulm: Decreased breath sounds at the bases; No wheezing GI: BS (+); Soft; NTND : Deferred MS: Tone intact Skin/Ext: No changes in lesions; 1+ pitting edema LABS:Pertinent Labs : Lab Results Component Value Date WBC 9.42 08/12/2024 POC V Hgb Tot 10.2 (L) 08/11/2024 Hgb 8.1 (L) 08/12/2024 POC A Hct (calc) 30.0 (L) 08/11/2024 Hct 24.1 (L) 08/12/2024 Plt Count 109 (L) 08/12/2024 Lab ResultsComponent Value Date POC V Na 135 08/11/2024 POC A Na 133 (L) 08/11/2024 Sodium Lvl 142 08/12/2024 POC V K 3.7 08/11/2024 POC A K 3.6 08/11/2024 Potassium Lvl 3.7 08/12/2024 POC V Cl 109 08/11/2024 POC Chloride 108 08/11/2024 Chloride Lvl 112 (H) 08/12/2024 CO2 Lvl 22.1 08/12/2024 BUN 18 08/12/2024 Creatinine Lvl 0.44 (L) 08/12/2024 POC V Glu 137 (H) 08/11/2024 POC A Glu 128 (H) 08/11/2024 Glucose Lvl 131 (H) 08/12/2024 POC Glu 129 (H) 08/12/2024 Lab ResultsComponent Value Date Calcium Lvl 7.6 (L) 08/12/2024 Magnesium 1.91 08/12/2024 Phosphorus Lvl 2.2 (L) 08/12/2024 Lab ResultsComponent Value Date AST 70 (H) 08/12/2024 ALT 62 (H) 08/12/2024 Alkaline Phosphatase 116 08/12/2024 Lab ResultsComponent Value Date PTT 35.5 08/12/2024 Prothrombin Time (PT) 13.7 08/12/2024 INR 1.03 08/12/2024 No results found for: "COLORU", "CLARITYU", "SPECGRAV", "PHUR", "PROTUR", "GLUCOSEU", "KETONESU", "NITRITEU", "LEUKOCYTESUR", "BILIRUBINUR", "UROBILINOGEN" No results found for: "CK", "TROPONINT", "TROPONINI", "BNP" IMAGING:@IMAGES@ EKG:Encounter Date: 07/31/24 ECG 12 lead Result Value Ventricular Rate 66 Atrial Rate 66 WY Interval 132 QRS Duration 70 QT/QTc 418 QTc Calculation 438 P-Dayton 24 R-Dayton -27 T-Dayton 32 Impression SINUS RHYTHM NORMAL ECG WHEN COMPARED WITH ECG OF 30-JUL-2024 14:12, SINUS RHYTHM HAS REPLACED ATRIAL FIBRILLATION RATE HAS DECREASED CRITERIA FOR ANTERIOR INFARCTION NO LONGER PRESENT Confirmed by Jaiden Liriano ([id number]) on 07/31/2024 5:22:03 PM ECHO: Transthoracic echo (TTE) complete 07/31/2024 Interpretation SummaryLeft Ventricle: Left ventricle size is normal. Findings consistent with eccentric hypertrophy. Mild global hypokinesis present. Mildly reduced systolic function with an estimated EF of 45 - 50%. Grade I diastolic dysfunction of the left ventricle. Apical thrombus is not present verified by the use of contrast. Right Ventricle: Right ventricle size is normal. Normal systolic function in the right ventricle. TAPSE is 19 mm. Pericardium: No pericardial effusion present. Transesophageal echo (MARQUES) with possible cardioversion 07/30/2024 Interpretation SummaryLeft Ventricle: Left ventricle size is normal. Mild global hypokinesis present. Reduced systolic function with an estimated EF of 45 - 50%. Right Ventricle: Right ventricle size is normal. Normal systolic function in the right ventricle. Left Atrium: Normal sized left atrial appendage. No thrombus in left atrium present. Transthoracic echo (TTE) complete 07/28/2024 Interpretation SummaryPatient is in atrial fibrillation with RVR at the time of this study. LV systolic function assessment is suboptimal. Left Ventricle: Left ventricle size is normal. Mild global hypokinesis present. Mildly reduced systolic function with an estimated EF of 45 - 50%. Right Ventricle: Right ventricle size is normal. Normal systolic function in the right ventricle. Left Atrium: Left atrium is moderately dilated. Mitral Valve: Moderate mitral regurgitation present. Tricuspid Valve: Mild to moderate tricuspid regurgitation present. Mild to moderate pulmonary hypertension present. RVSP is 46.00 mmHg. Pericardium: Trivial pericardial effusion present. Left pleural effusion present. [1] Patient Active Problem List Diagnosis New onset of congestive heart failure (CMS/HCC) (HCC) Cellulitis Atrial fibrillation with RVR (CMS/HCC) (HCC) Prediabetes Elevated troponin Hypertension Tobacco use Coronary artery disease Hyponatremia Hyperglycemia Pulmonary edema cardiac cause (CMS/HCC) (HCC) Triple vessel coronary artery disease Acute non-ST elevation myocardial infarction (NSTEMI) (CMS/HCC) (HCC) Tachy-sen syndrome (CMS/HCC) (HCC) Tobacco use disorder Peripheral vascular disease (HCC) Normocytic anemia Diabetes mellitus (HCC) Compression fracture of T10 vertebra (HCC) Cardiac arrest (HCC) Shock (CMS/HCC) (HCC) Nonrheumatic mitral valve regurgitation [2] Past Medical History: Diagnosis Date Diabetes mellitus (HCC) PATIENT CLAIMED THAT SHE HAS DIABETES [3] History reviewed. No pertinent surgical history. [4] Family History: Problem Relation Name Age of Onset Diabetes Mother No Known Problems Father [5] No Known Allergies * Walter Walters PharmD - 08/12/2024 9:12 AM CDT Clinician Notes: Continue current dose. Patient is receiving therapy for device prophylaxis, Impella likely to be removed in next few days. No further levels should be indicated. Please contact [phone] or via GOWEX with questions. Recommended Dose: 750 mg IV over 1 hour every 12 hours for 2 days Next Dose At: 11:21 on Aug 12 2024 Dosing Interval: 12 hours Infusion Length: 1 hours Dose Valid For: 2 days only Dose Recommendation Method: Individualized model Target Outcome: AUC24: 450 mcg.h/mL Predicted Outcome: AUC24: 428.43 mcg.h/mL Predicted Peak: 24.2 mcg/mL Predicted Trough: 12.6 mcg/mL Predicted AUC24: 428.4 mcg.h/mL Predicted AUC12: 214.2 mcg.h/mL Most Recent Dose: 750 mg over 1 hours at 23:21 on Aug 11 2024 Most Recent SCr: 0.44 mg/dL at 03:36 on Aug 12 2024 Most Recent Blood Concentration: 18.6 mcg/mL at 04:10 on Aug 11 2024 Peak: 23.8 mcg/mL Trough: 12.4 mcg/mL AUC24: 421 mcg.h/mL AUC12: 210 mcg.h/mL * Gordon Velez MD - 08/12/2024 9:02 AM CDT AHF ICU PROGRESS NOTE Subjective NAEON I/O: Intake/Output Summary (Last 24 hours) at 08/12/2024 0903 Last data filed at 08/12/2024 0600 Gross per 24 hour Intake 1539.9 ml Output 1355 ml Net 184.9 ml Diuresis: None Drips: amiodarone, Mechanical Support: Impella 5.5 Impella Number of Devices: 1 Location 1: Left ventricle Device 1: 5.5 Power/AC Battery Connected 1: Yes Performance Level (PL) 1: 4 PL Flow (L/min) 1: 2.5 L/min Purge Pressure (mmHg) 1: 516 mmHg [place] Numbers: 5, 27/7 (17) TTE 08/07/24: EF 35-40%, normal RV size and function, Impella 5.5 cm in LVcavity, moderate MR, trivial pericardial effusion. [facility] 08/06/2024:Successful LM-LAD PCI with SARAH x4 complicated by PEA arrest with CPR ~15 min before cannulated for VA ECMO; hemodynamic instability and PEA arrest thought to be secondary to high LVEDP/stunning during the case. Acute stent thrombosis secondary to stasis/no pulsatility on repeat angiography after cardiac arrest; successfully treated with PTCA. Occlusive R FIELD MARKETING TEAM LEADER (19Fr) cannula and L FIELD MARKETING TEAM LEADER (9Fr) sheath. DIESEL TRAILER MECHANIC of R SFA not amenable to antegrade sheath. TTE 07/31/2024:Left Ventricle: Left ventricle size is normal. Findings consistent with eccentric hypertrophy. Mild global hypokinesis present. Mildly reduced systolic function with an estimated EF of 45 - 50%. Grade I diastolic dysfunction of the left ventricle. Apical thrombus is not present verified by the use of contrast. Right Ventricle: Right ventricle size is normal. Normal systolic function in the right ventricle. TAPSE is 19 mm. Pericardium: No pericardial effusion present. Latest RHC 07/30/2024:RA: Mean 4 mmHg RV 35/0 with RVEDP 5 mmHg PA 36/12 with mean of 22 mmHg PCWP estimated 12-14 mmHg Tucker: CO 3.4 L/min, CI 2.2 L/m2/min Duplex Arterial Ultrasound 08/06IMPRESSION: 1. Right mid and distal SFA and proximal popliteal artery occlusion. Post occlusion reconstitution distal popliteal, posterior tibial, anterior tibial and dorsalis pedis arteries with low resistance low flow waveform. 2. Left mid and distal SFA occlusion with low resistance low flow with reconstitution within the proximal and distal popliteal, and anterior and posterior tibial and dorsalis pedis arteries. Objective Last Recorded Vitals Blood pressure (!) 123/59, pulse 62, temperature 36.7 ?C (98.1 ?F), resp. rate 22, height 1.6 m (5' 3"), weight 61.6 kg (135 lb 12.9 oz), SpO2 98%. Physical Exam:GEN: lying down comfortably, not in acute distress HEENT: normal conjuctivae, anicteric sclera neck: no JVD , supple, normal ROM CV: RRR s1s2 no mrg, pulse +2 resp: CTAB, no wheezing/crackles GI: soft, non tender MSK: no joint swelling or pain to palpation extremities: no edema, clubbing or cyanosis Neuro: AOx3, moving all extremities, speech normal Skin: no new rashes, bruises Assessment & PlanCardiac arrest ([facility]) Shock ([facility]) ([facility]) Nonrheumatic mitral valve regurgitation -- S/p PCI x4 to LM-LAD c/b PEA arrest with 15 minutes of CPR and ECMO cannulation, finding of acute stent thrombosis s/p PTCA > with subsequent Impella 5.5 placement and decannulation of ECMO on 08/06/2024 -Wean pressors/Impella support as able -Moderate MR noted on TTE and at bedside with large V waves on wedge waveform, -S/p YAQUELIN on 08/10 -Will discuss with HF surgery regarding pulling Impella tomorrow in setting of GI bleeds and AVMs Melena-IV PPI -GI consulted -Transfuse for Hemoglobin of >7 -Hold heparin. -EGD today, follow results Triple vessel coronary artery disease Acute non-ST elevation myocardial infarction (NSTEMI) ([facility]) ([facility]) - S/p PCI x4 to LM-LAD c/b PEA arrest with 15 minutes of CPR and ECMO cannulation, > with subsequent Impella 5.5 placement and decannulation of ECMO on 08/06/2024. - Lipids: continue atorvastatin 40 mg PO daily - Antiplatelet: continue aspirin 81 mg PO daily; brilinta 90 mg BID Tachy-sen syndrome ([facility]/HCC) ([facility])- Likely ischemia-related; will reassess rhythm and rate status after re-vascularization - Continue telemetry monitoring while inpatient Atrial fibrillation with RVR (CMS/HCC) ([facility]) - Anticoagulation: heparin drip while hospitalized; DOAC after procedures/surgery -Transition to PO amiodarone. Compression fracture of T10 vertebra ([facility]) - Incidental finding noted on admission CT - No surgical intervention at this time per ortho spine team Peripheral vascular disease ([facility]) -Arterial doppler with evidence of PAD with distal reconstitution -9 [place] Sheath removed 08/07 Prediabetes - Sliding scale insulin + D[facility] Tiff[facility]: NPO Diet Cosigned by Sharyn Naranjo MD at 08/12/2024 12:10 PM CDT Associated attestation - Tiffanie Naranjo, Sharyn Fonseca MD - 2:10 PM CDT I saw and examined the patient with Gordon Velez MD on 08/12/24 and agree with plan and assessment as above. I personally reviewed the labs, diagnostic imaging and documentation and discussed the plan of care with team and patient EGD today showed several bleeding AVMs, s/p clip. ImpellaNumber of Devices: 1 Location 1: Left ventricle Device 1: 5.5 Power/AC Battery Connected 1: Yes Performance Level (PL) 1: 4 PL Flow (L/min) 1: 2.5 L/min Purge Pressure (mmHg) 1: 516 mmHg Impella site clean.Not on vasoactive medications. Hemodynamics: CVP 7 mean PAP 25, PAP 30/12, CI > 3.0. On impella P5 flow 2.5 BP 130s/50s PlanContinue holding heparin We will discuss with HF surgery re: removal of Impella For now keep impella support at P4. Stop IV amiodarone, switch to PO This patient is critically ill. The patient care involves high complexitymedical decision making and ICU level of care. There was a high probability of imminent life-threatening deterioration in the patient’s condition. I spent 35 minutes of critical care time with this patient. This is the total time I spent evaluating, coordinating, managing and providing care to the patient as well as time spent in documenting such activities. This time is exclusive of time required to perform procedures required during patient management. Sharyn Naranjo MD * Jesse Hernandes MD - 08/11/2024 1:11 PM CDT HF Surgery Progress Note #Multivessel CAD with left main dx. #acute hypoxemic respiratory failure #Pulmonary edema #preop pulmonary edema #CHF #cellulitis #afib RVR #dm2 #htn #tobacco use PMH: 69 yo female w/ PMH including HTN, DM, CAD and tobacco abuse who was transferred to [facility] for revascularization after LHC at [facility] revealed multivessel disease with severe L main disease. Other relevant events at OSH included cellulitis 2/2 to spider bite and hypoxic respiratory failure requiring bipap, afib RVR and possible new diagnosis of CHF (EF 45-50%). 3 high-risk PCI/SARAH x4, complicated by PEA, emergent vaECMO, due to in-stent thrombosis 08/06 Impella 5.5 placement axillary R and vaECMO removal w/ art repair 08/10 YAQUELIN (1x MitraClip), reduction MR to 2+ Subjective: Bradycardic, amio decreased to 0.5 mg. Hgb 7.1 from 8.2, hemodynamically stable. Melena overnight. AM CXR looks more wet. Day 6 on Impella 5.5, drips off, impella reduced to P4 on , did not tolerate, in TTE new severe secondary MR. In MARQUES yesterday, prolapse P2, 2 central jets. Was evaluated for YAQUELIN due to frailty and high risk, and underwent successful MitralClip procedure yesterday, reduction MR 3+ to 2+. amiodarone, 0.5 mg/min, Last Rate: 0.5 mg/min (08/11/24 0100) amiodarone in D5W 500 mL, , Last Rate: 1 mg/min (08/06/24 182) EPINEPHrine, , Last Rate: 3 mcg/min (08/06/24 1909) [Held by provider] EPINEPHrine, 3 mcg/min, Last Rate: Stopped (08/08/24 1400) heparin, 500 Units/hr, Last Rate: 500 Units/hr (08/10/24 2206) norepinephrine, , Last Rate: Stopped (08/06/24 1939) potassium chloride, , Last Rate: 20 mEq (08/06/24 1727) sodium bicarbonate 25 mEq in dextrose 5 % 1,000 mL infusion, 0.1-40 mL/hr, Last Rate: 11.3 mL/hr (08/11/24 1259) sodium chloride, , Last Rate: Stopped (08/09/24 0645) Objective Last Recorded Vitals Blood pressure (!) 119/59, pulse 60, temperature 37.3 ?C (99.1 ?F), resp. rate (!) 26, height 1.6 m (5' 3"), weight 62 kg (136 lb 11 oz), SpO2 100%. Ventricular Assist Device(VAD) Initial VAD Type: LVAD VAD Pump: Impella Impella Device: Impella 5.5 VAD Laterality: Left Pump Flow (L/min): 3.1 VAD P-Level: 5 Placement Signal: 95/50/61 Motor Current (mA): 266/198/236 Purge Flow (mL / hr): 11.4 Purge Pressures (mmHg): 441 Site Marker (cm): 43 Pertinent Labs : Lab Results Component Value Date WBC 9.69 08/11/2024 POC V Hgb Tot 10.2 (L) 08/11/2024 Hgb 7.1 (L) 08/11/2024 POC A Hct (calc) 26.0 (L) 08/11/2024 Plt Count 126 (L) 08/11/2024 Lab Results Component Value Date POC V Na 135 08/11/2024 POC A Na 134 (L) 08/11/2024 POC V K 3.7 08/11/2024 POC A K 3.7 08/11/2024 POC V Cl 109 08/11/2024 POC Chloride 109 08/11/2024 CO2 Lvl 22.7 08/11/2024 BUN 21 08/11/2024 Creatinine Lvl 0.44 (L) 08/11/2024 POC V Glu 137 (H) 08/11/2024 POC A Glu 196 (H) 08/11/2024 Lab Results Component Value Date Calcium Lvl 7.4 (L) 08/11/2024 Magnesium 2.39 08/11/2024 Phosphorus Lvl 2.4 08/11/2024 Lab Results Component Value Date AST 84 (H) 08/11/2024 ALT 53 (H) 08/11/2024 Alkaline Phosphatase 125 (H) 08/11/2024 Lab Results Component Value Date PTT 71.1 (H) 08/11/2024 Prothrombin Time (PT) 14.6 08/11/2024 INR 1.12 08/11/2024 Physical Exam: Constitutional: Interventions: She is sedated and intubated. HENT: Head: Atraumatic. Nose: Nose normal. Mouth/Throat: Mouth: Mucous membranes are moist. Eyes: Extraocular Movements: Extraocular movements intact. Conjunctiva/sclera: Conjunctivae normal. Cardiovascular: Rate and Rhythm: Normal rate and regular rhythm. Heart sounds: Normal heart sounds. Pulmonary: Effort: She is intubated. Abdominal: General: Bowel sounds are normal. Palpations: Abdomen is soft. Skin: General: Skin is warm. Capillary Refill: Capillary refill takes less than 2 seconds. Neurological: General: No focal deficit present. Psychiatric: Behavior: Behavior is cooperative. Assessment & PlanTriple vessel coronary artery disease Acute non-ST elevation myocardial infarction (NSTEMI) (CMS/HCC) ([facility]) Tachy-sen syndrome (CMS/HCC) ([facility]) Tobacco use disorder Peripheral vascular disease (HCC) Normocytic anemia Compression fracture of T10 vertebra (HCC) New onset of congestive heart failure (CMS/HCC) (HCC) Atrial fibrillation with RVR (CMS/HCC) ([facility]) Prediabetes Diabetes mellitus (HCC) Coronary artery disease Cardiac arrest (HCC) Shock (CMS/HCC) ([facility]) Nonrheumatic mitral valve regurgitation Melena A/P:- Keep Impella P5, wean slowly. CXR looks more congested on dropping P7 to P5 today. - 2 RBC, recheck Hb. - GI eval, endoscopy Tuesday. - Ambulation w/ PT Current Diet: NPO Diet Jesse Hernandes MD08/11/24 1:34 PM * Michael Jeffries, DO - 08/11/2024 11:16 AM CDT Hemotherapy Progress Note HPI: 69 yo female w/ PMH including HTN, DM, CAD and tobacco abuse who was transferred to [facility] for revascularization after LHC at [facility] revealed multivessel disease with severe L main disease. Other relevant events at OSH included cellulitis 2/2 to spider bite and hypoxic respiratory failure requiring bipap, afib RVR and possible new diagnosis of CHF (EF 45-50%). Went for PCI x4 on 08/06 c/b PEA arrest s/p ECMO s/p Impella 5.5 placement. SUBJECTIVE: On Impella support S/p mitral clip on 08/10 Having GI bleeding. IV heparin held. Impella Bicarb purge started. H/H drop- 2 RBCs today On ASA and Brilinta OBJECTIVE: EXAM BP (!) 119/59 | Pulse 63 | Temp 37.3 ?C (99.1 ?F) | Resp (!) 25 | Ht 1.6 m (5' 3") | Wt 62 kg (136 lb 11 oz) | SpO2 93% | BMI 24.21 kg/m? Gen: Comfortable, awake and alert Neuro: No focal deficits appreciated HEENT: PERRL; EOMI; No scleral icterus CV/Pulses: RRR; 2+ peripheral pulses Pulm: on HFNC symmetric chest rise GI: Soft; NTND : Deferred MS: Tone intact Skin/Ext: No changes in lesions; 1+ pitting edema LABS: Lab Results Component Value Date Albumin Lvl 2.2 (L) 08/11/2024 Albumin Lvl 2.5 (L) 08/10/2024 Protein 4.7 (L) 08/11/2024 Protein 5.0 (L) 08/10/2024 ALT 53 (H) 08/11/2024 ALT 37 08/10/2024 AST 84 (H) 08/11/2024 AST 30 08/10/2024 Bilirubin Total 0.46 08/11/2024 Bilirubin Total 0.65 08/10/2024 WBC 9.69 08/11/2024 WBC 9.24 08/11/2024 POC V Hgb Tot 10.2 (L) 08/11/2024 Hgb 7.1 (L) 08/11/2024 Plt Count 126 (L) 08/11/2024 Plt Count 129 (L) 08/11/2024 INR 1.12 08/11/2024 INR 1.02 08/10/2024 PTT 71.1 (H) 08/11/2024 PTT 85.6 (H) 08/10/2024 LDH Tot 448 (H) 08/11/2024 LDH Tot 436 (H) 08/10/2024 Hgb, Plasma 10 08/11/2024 Hgb, Plasma 20 08/10/2024 Ferritin Lvl 481 (H) 08/09/2024 Results from last 7 days Lab Units 08/11/24 0410 08/10/24 2131 08/10/24 0305 INR 1.12 1.02 1.07 PTT Seconds 71.1* 85.6* 64.8* IMAGING: Images were reviewed. ASSESSMENT AND PLAN: 69 yo female w/ PMH including HTN, DM, CAD and tobacco abuse who was transferred to [facility] for revascularization after LHC at [facility] revealed multivessel disease with severe L main disease. Other relevant events at OSH included cellulitis 2/2 to spider bite and hypoxic respiratory failure requiring bipap, afib RVR and possible new diagnosis of CHF (EF 45-50%). Went for PCI x4 to LM-LAD c/b PEA arrest with 15 minutes of CPR and ECMO cannulation, finding of acute stent thrombosis s/p PTCA > with subsequent Impella 5.5 placement and decannulation of ECMO on 08/06/2024. Anemia/RBC:H/H low. Now with GI bleeding 1u pRBCs 08/04, 08/06 in OR, 2 on 08/07 and 08/11 Has anemia of chronic disease with underlying GALEN Getting IV iron and PO folic acid Blood Type: O Pos ; Antibody screen: negative Transfuse if Hb < 7/8 mmHg/dL. Platelet:Count is adequate Count has been downtrending due to Impella and Gi bleeding On Asa and Brillinta Transfuse if Platelet count < 20K or <50K if actively bleeding. Coagulation:PT/INR is normal PTT elevated due to Heparin. Now held Fibrinogen WNL, transfuse cryoprecipitate for fibrinogen <150 mg/dL Anticoagulation for Impella 5.5:Impella bicarb purge IV heparin on hold. Monitor for bleeding. * Gordon Velez MD - 08/11/2024 10:46 AM CDT AHF ICU PROGRESS NOTE Subjective Hemoglobin drop this morning drop, patient with melenic stools today. I/O: Intake/Output Summary (Last 24 hours) at 08/11/2024 1046 Last data filed at 08/11/2024 0700 Gross per 24 hour Intake 1603.61 ml Output 1840 ml Net -236.39 ml Diuresis: None Drips: amiodarone, heparin Mechanical Support: Impella 5.5 [place] Numbers: TTE 08/07/24: EF 35-40%, normal RV size and function, Impella 5.5 cm in LV cavity, moderate MR, trivial pericardial effusion. C 08/06/2024: Successful LM-LAD PCI with SARAH x4 complicated by PEA arrest with CPR ~15 min before cannulated for VA ECMO; hemodynamic instability and PEA arrest thought to be secondary to high LVEDP/stunning during the case. Acute stent thrombosis secondary to stasis/no pulsatility on repeat angiography after cardiac arrest; successfully treated with PTCA. Occlusive R FIELD MARKETING TEAM LEADER (19Fr) cannula and L FIELD MARKETING TEAM LEADER (9Fr) sheath. DIESEL TRAILER MECHANIC of R SFA not amenable to antegrade sheath. TTE 07/31/2024: Left Ventricle: Left ventricle size is normal. Findings consistent with eccentric hypertrophy. Mild global hypokinesis present. Mildly reduced systolic function with an estimated EF of 45 - 50%. Grade I diastolic dysfunction of the left ventricle. Apical thrombus is not present verified by the use of contrast. Right Ventricle: Right ventricle size is normal. Normal systolic function in the right ventricle. TAPSE is 19 mm. Pericardium: No pericardial effusion present. Latest RHC 07/30/2024: RA: Mean 4 mmHg RV 35/0 with RVEDP 5 mmHg PA 36/12 with mean of 22 mmHg PCWP estimated 12-14 mmHg Tucker: CO 3.4 L/min, CI 2.2 L/m2/min Duplex Arterial Ultrasound 08/06 IMPRESSION: 1. Right mid and distal SFA and proximal popliteal artery occlusion. Post occlusion reconstitution distal popliteal, posterior tibial, anterior tibial and dorsalis pedis arteries with low resistance low flow waveform. 2. Left mid and distal SFA occlusion with low resistance low flow with reconstitution within the proximal and distal popliteal, and anterior and posterior tibial and dorsalis pedis arteries. Objective Last Recorded Vitals Blood pressure (!) 86/51, pulse 67, temperature 37.2 ?C (99 ?F), resp. rate (!) 28, height 1.6 m (5' 3"), weight 62 kg (136 lb 11 oz), SpO2 93%. Physical Exam:GEN: lying down comfortably, not in acute distress HEENT: normal conjuctivae, anicteric sclera neck: no JVD , supple, normal ROM CV: RRR s1s2 no mrg, pulse +2 resp: CTAB, no wheezing/crackles GI: soft, non tender MSK: no joint swelling or pain to palpation extremities: no edema, clubbing or cyanosis Neuro: AOx3, moving all extremities, speech normal Skin: no new rashes, bruises Assessment & PlanCardiac arrest (HCC) Shock ([facility]) ([facility]) Nonrheumatic mitral valve regurgitation -- S/p PCI x4 to LM-LAD c/b PEA arrest with 15 minutes of CPR and ECMO cannulation, finding of acute stent thrombosis s/p PTCA > with subsequent Impella 5.5 placement and decannulation of ECMO on 08/06/2024 -Wean pressors/Impella support as able -Moderate MR noted on TTE and at bedside with large V waves on wedge waveform, -S/p YAQUELIN on 08/10 Melena-IV PPI -GI consulted -Transfuse for Hemoglobin of >7 -Hold heparin. -Clear liquid diet today, NPO at midnight for EGD. Triple vessel coronary artery disease Acute non-ST elevation myocardial infarction (NSTEMI) ([facility]) ([facility]) - S/p PCI x4 to LM-LAD c/b PEA arrest with 15 minutes of CPR and ECMO cannulation, > with subsequent Impella 5.5 placement and decannulation of ECMO on 08/06/2024. - Lipids: continue atorvastatin 40 mg PO daily - Antiplatelet: continue aspirin 81 mg PO daily; brilinta 90 mg BID Tachy-sen syndrome (CMS/HCC) ([facility])- Likely ischemia-related; will reassess rhythm and rate status after re-vascularization - Continue telemetry monitoring while inpatient Atrial fibrillation with RVR (CMS/HCC) ([facility]) - Anticoagulation: heparin drip while hospitalized; DOAC after procedures/surgery -Continue amiodarone ggt for now. Compression fracture of T10 vertebra ([facility]) - Incidental finding noted on admission CT - No surgical intervention at this time per ortho spine team Peripheral vascular disease ([facility]) -Arterial doppler with evidence of PAD with distal reconstitution -9 [place] Sheath removed 08/07 Prediabetes - Sliding scale insulin + Current Diet: NPO Diet NPO except: Sips with meds Cosigned by Sharyn Naranjo MD at 08/11/2024 7:07 PM CDT Associated attestation - Tiffanie Naranjo, Sharyn Fonseca MD - 57:07 PM CDT I saw and examined the patient with Gordon Velez MD on 08/11/24 and agree with plan and assessment as above. I personally reviewed the labs, diagnostic imaging and documentation and discussed the plan of care with team and patient 69 yo female presented post PEA arrest during PCI LM to LAD in the setting of severe CAD, s/p ECMO cannulation,subsequent Impella 5.5 placement and decannulation of ECMO, noted to have severe MR both functional and degenerative disease, with prolapse of P3. Since patient is not a candidate for advance therapies due to severe peripheral vascular disease and age, the decision was to pursue YAQUELIN that was done yesterday with no complications and improvement of MR to trace. Final plan is to wean off impella to medical therapy. Subjective:Having melena this morning with hypotension, improvement in BP after transfusion of blood GI consulted Impella support at P4 Flow 2.6, impella site clean. BP (!) 86/51 | Pulse 67 | Temp 37.2 ?C (99 ?F) | Resp (!) 28 | Ht 1.6 m (5' 3")| Wt 62 kg (136 lb 11 oz) | SpO2 93% | BMI 24.21 kg/m? Intake/Output Summary (Last 24 hours) at 08/11/2024 1045Last data filed at 08/11/2024 0700 Gross per 24 hour Intake 1603.61 ml Output 1840 ml Net -236.39 ml Labs:Normal electrolytes, normal renal function LFTs mildly elevated LDH 448 stable Iron 19 Ferritin 481 Iron Sat 12 TIBC 159 Plan --heparin on hold due to concerns for active bleeding --since she is not on heparin we will maintain impella at P5. Plan is to wean off impella once GIB is controlled, will prefer to support her with tMCS if she needs GI testing. --continue amiodarone --continue DAPT, statin --follow echo post YAQUELIN Active medical conditions, plan and recommendations were discussed in lengthwith the patient. All the questions were answered. Complex Medical Decision Making in this encounter I spent 35 minutes preparing to see the patient including review of tests, obtaining history from the patient, performing exam, counseling and educating the patient, reconciling medication and reviewing adherence and interactions, ordering meds and tests and documenting clinical information in the electronic record Sharyn Naranjo MD * Walter Walters, PharmD - 08/11/2024 10:16 AM CDT Clinician Notes: Continue current dose, per pulm/cc plan to keep vancomycin for device prophylaxis. May be able to dc soon if device removed. No levels should be indicated for 3-5 days if renal function remains stable. Please contact [phone] or via [employer] message with any questions. Recommended Dose: 750 mg IV over 1 hour every 12 hours for 2 days Next Dose At: 10:43 on Aug 11 2024 Dosing Interval: 12 hours Infusion Length: 1 hours Dose Valid For: 2 days only Dose Recommendation Method: Individualized model Target Outcome: AUC24: 450 mcg.h/mL Predicted Outcome: AUC24: 429.77 mcg.h/mL Predicted Peak: 24.3 mcg/mL Predicted Trough: 12.7 mcg/mL Predicted AUC24: 429.8 mcg.h/mL Predicted AUC12: 214.9 mcg.h/mL Most Recent Dose: 750 mg over 1 hours at 22:43 on Aug 10 2024 Most Recent SCr: 0.44 mg/dL at 04:10 on Aug 11 2024 Most Recent Blood Concentration: 18.6 mcg/mL at 04:10 on Aug 11 2024 Peak: 24.8 mcg/mL Trough: 13 mcg/mL AUC24: 440 mcg.h/mL AUC12: 220 mcg.h/mL * Dino Domínguez MD - 08/11/2024 9:47 AM CDT ID PULMONARY CRITICAL CARE MEDICINE - NoteType: PROGRESS NOTE Patient ID: @WALTER@ is a 69 y.o. female. Chief Complaint: No chief complaint on file. Admission date: 07/31/2024 Referring Physician: Leila Lozano NP Reason for Consult: Reason For Consult: Critical care management Interval events S/p mitral clip yesterday Afib overnight requiring amio gtt, became bradycardic overnight Hypotensive this morning, with large melena, impella back to p-7 Heparin gtt stopped Hgb dropping overnight ASSESSMENT/PLAN: Problem List: Principal Problem: Triple vessel coronary artery disease Active Problems: Acute non-ST elevation myocardial infarction (NSTEMI) (CMS/HCC) (HCC) Tachy-sen syndrome (CMS/HCC) (HCC) Tobacco use disorder Peripheral vascular disease (HCC) Normocytic anemia Compression fracture of T10 vertebra (HCC) Cardiac arrest (HCC) Shock (CMS/HCC) (HCC) New onset of congestive heart failure (CMS/HCC) (HCC) Atrial fibrillation with RVR (CMS/HCC) (HCC) Prediabetes Coronary artery disease Diabetes mellitus (HCC) Nonrheumatic mitral valve regurgitation Problem List[1] Principal Problem: Triple vessel coronary artery disease Active Problems: Acute non-ST elevation myocardial infarction (NSTEMI) (CMS/HCC) (HCC) Tachy-sen syndrome (CMS/HCC) (HCC) Tobacco use disorder Peripheral vascular disease (HCC) Normocytic anemia Acute hypoxic respiratory failure (HCC) New onset of congestive heart failure (CMS/HCC) (HCC) Atrial fibrillation with RVR (CMS/HCC) (HCC) Prediabetes Diabetes mellitus (HCC) #Multivessel CAD with left main dx. #acute hypoxemic respiratory failure #Pulmonary edema #preop pulmonary edema #CHF #cellulitis #afib RVR #dm2 #htn #tobacco use Assessment: 69 yo female w/ PMH including HTN, DM, CAD and tobacco abuse who was transferred to [facility] for revascularization after LHC at [facility] revealed multivessel disease with severe L main disease. Other relevant events at OSH included cellulitis 2/2 to spider bite and hypoxic respiratory failure requiring bipap, afib RVR and possible new diagnosis of CHF (EF 45-50%). Neuro/Psych: -Delirium precautions - start pain meds: tylenol and robaxin, gabapentin CV: - LHC (07/30/24) notable for severe 80% LM disease, and severe multivessel disease. She declined CABG, plan is for high risk PCI - Cont. Asa and atorvastatin - MARQUES, mild global hypokinesis, reduced EF 45-50% and DCCV (07/30/24). - amio gtt for afib - s/p impella 5.5, bridge to recovery. - s/p mitral clip 08/10 - hypotension due to bleeding Resp: - wean supplemental oxygen, wean as tolerated to maintain spo2 >92% - CT chest (07/31)- Small bilateral pleural effusions, greater on the left. Dependent consolidative opacities with air bronchogram and surrounding groundglass in the bilateral lower lobes. Mild diffuse groundglass is associated with interlobular septal thickening. Scattered bilateral subsegmental atelectasis in both lungs. Minimal upper lobe predominant centrilobular emphysema. - PFT(07/31) - Restrictive ventilatory defect likely in setting of pulmonary edema and opacities seen on CT chest. - CXR with pulmonary congestion and pleural effusion; minimal o2 requirement, no need for drainage - bipap at night for volume expansion - IS and VEP - on room air but high risk for decompensation given GIB - worsening CXR due to fluid overload and pleural effusion, will await diuresis. High risk for thora given DAPT GI/Nutrition: - NPO - PPI BID - GI consult for endoscopy - LFTs improving - bowel regimen Renal/Electrolytes: - UOP is good, - will; need diuresis once she is more stable from bleeding standpoint - Replace electrolytes per unit protocol - Monitor I/Os Endo: Lab Results Component Value Date Hgb A1C 6.45 (H) 07/31/2024 TSH 1.224 07/28/2024 - BG goal 120 - 180, SSI as needed - SSI Heme/Onc: -monitor For bleeding and coagulopathies - Transfuse to maintain hgb >7 - hold impella heparin and systemic AC - 2 unit pRBC this AM, - H&H q6hrs ID: - dc cefepime, all cx are negative - MRSA swab is negative - pending final resp cultures - keep vanc for device ppx Msk/Skin/Deconditioned: - Consult PT/OT. - Continue wound care and sacral decubitus prevention. To Do - GI consult - monitor for GIB and assess transfusion - ICU quality > DVT prophylaxis: heparin gtt, SCD > PPI prophylaxis: start PPI > Nutrition/glucose control: SSI, BG 120-180 > Line and tubes: continue lines while attempting impelal weaning > Perkins catheter: remove perkins > Sedation: off > Date of intubation: 08/06 > Restraints: placed This patient is critically ill. I spent 40 minutes of critical care time with this patient, not including procedure time Dino Domínguez MD [facility] Pulmonary and Critical Care Medicine MSO# [id number] HISTORY OF PRESENT ILLNESS: NO Hampton is a 69 y.o. female with past medical history of hypertension, diabetes mellitus (on no meds), reported history of coronary artery disease and tobacco use, was transferred from [facility] after LHC revealed severe left main disease and multivessel disease. She was originally admitted for hand cellulitis after a spider bite, but during that hospital stay she had hypoxic respiratory failure requiring BiPAP, NSTEMI, possibly newly diagnosed CHF (EF 45-50%), and Afib w/ RVR. She underwent a MARQUES w/ cardioversion. LHC and RHC on 07/31/23 which showed normal filling pressures, LHC which showed 80% mid to distal LM lesion extending into the ostium of LAD, 60-70% mid LAD, diffuse LCx and OM disease, and 70-80% proximal to mid RCA disease. She was transferred to [facility] for revascularizaton. On 08/06 she underwent PCI to LM-LAD with SARAH x4 complicated by cardiac arrest x2 where she was cannulated with VA ECMO. 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 No data found. Enter data into the [facility] Mental Health Specialist navigator to see it here. PAST MEDICAL HISTORY: Medical History[2] PAST SURGICAL HISTORY: Surgical History[3] FAMILY HISTORY: Family History[4] SOCIAL HISTORY: Social History Socioeconomic History Marital status: Spouse name: Not on file Number of children: Not on file Years of education: Not on file Highest education level: Not on file Occupational History Not on file Tobacco Use Smoking status: Former Current packs/day: 0.00 Types: Cigarettes Quit date: 1967 Years since quittin.2 Smokeless tobacco: Current Tobacco comments: PATIENT VERBALIZED "WELL NOW THAT I AM IN THE HOSPITAL, I CAN'T REALLY SMOKE Vaping Use Vaping status: Not on file Substance and Sexual Activity Alcohol use: Yes Alcohol/week: 6.0 standard drinks of alcohol Types: 6 Cans of beer per week Comment: [place] EVERYOTHER WEEKEND Drug use: Never Sexual activity: Not Currently Other Topics Concern Not on file Social History Narrative Not on file Social Drivers of Health Financial Resource Strain: Not on file Food Insecurity: No Food Insecurity (07/31/2024) Hunger Vital Sign Worried About Running Out of Food in the Last Year: Never true Ran Out of Food in the Last Year: Never true Transportation Needs: No Transportation Needs (07/31/2024) PRAPARE - Transportation Lack of Transportation (Medical): No Lack of Transportation (Non-Medical): No Physical Activity: Not on file Stress: Not on file Social Connections: Not on file Intimate Partner Violence: Not At Risk (07/31/2024) Humiliation, Afraid, Rape, and Kick questionnaire Fear of Current or Ex-Partner: No Emotionally Abused: No Physically Abused: No Sexually Abused: No Housing Stability: Low Risk (07/31/2024) Housing Stability Vital Sign Unable to Pay for Housing in the Last Year: No Number of Times Moved in the Last Year: 0 Homeless in the Last Year: No ALLERGIES: Allergies[5] HOME MEDICATIONS:Medication Documentation Review Audit Reviewed by Aracelis Chavez RN (Registered Nurse) on 08/09/24 at 0722 Medication Order Taking? Sig Documenting Provider Last Dose Statusevolocumab (Repatha SureClick) 140 MG/ML Subcutaneous Solution Auto-injector [id number] Inject 1 mL under the skin every 14 days. Leila Lozano, HAILEY Active acetaminophen, 650 mg, Oral, q6h albumin human, , , [Held by provider] amiodarone, 200 mg, Oral, BID aspirin, 81 mg, Oral, Daily atorvastatin, 40 mg, Oral, Daily Boost Glucose Control, 1 Container, Oral, BID with meals ferric gluconate (Ferrlecit) IVPB, 250 mg, Intravenous, Daily folic acid, 1 mg, Oral, Daily gabapentin, 100 mg, Oral, q8h methocarbamol, 500 mg, Oral, q8h DARYL pantoprazole, 40 mg, Intravenous, q12h DARYL polyethylene glycol (PEG) 3350, 17 g, Oral, Daily sennosides, 1 tablet, Oral, BID thiamine, 100 mg, Nasogastric, Daily ticagrelor, 90 mg, Oral, q12h DARYL vancomycin, 750 mg, Intravenous, q12h amiodarone, 0.5 mg/min, Last Rate: 0.5 mg/min (08/11/24 0100)amiodarone in D5W 500 mL, , Last Rate: 1 mg/min (08/06/24 1824) EPINEPHrine, , Last Rate: 3 mcg/min (08/06/24 1909) [Held by provider] EPINEPHrine, 3 mcg/min, Last Rate: Stopped (08/08/24 1400) heparin 12,500 Units in dextrose 5 % 500 mL infusion, , Last Rate: 12.1 mL/hr at 08/10/24 0115 heparin, 500 Units/hr, Last Rate: 500 Units/hr (08/10/24 2206) norepinephrine, , Last Rate: Stopped (08/06/24 193) potassium chloride, , Last Rate: 20 mEq (08/06/24 1727) sodium chloride, , Last Rate: Stopped (08/09/24 0645) PRN medications: albumin human, amiodarone in D5W 500 mL, calcium gluconate, chlorhexidine, dextrose, dextrose, EPINEPHrine, glucagon, insulin lispro, magnesium sulfate, norepinephrine, phenol, potassium & sodium phosphates OR potassium & sodium phosphates, potassium chloride OR potassium chloride OR potassium chloride OR Potassium chloride, potassium chloride, sodium chloride, sodium chloride, sodium chloride, sodium chloride, sodium chloride, sodium chloride, sodium chloride, sodium phosphates 45 mmol in sodium chloride 0.9 % 100 mL IVPB, traMADol, Pharmacy to dose vancomycin AND Vancomycin Pharmacy Dosing PHYSICAL EXAM:Gen: intubated, sedated Neuro: No focal deficits appreciated HEENT: PERRL; EOMI; No scleral icterus CV/Pulses: PE_CV: RRR; 2+ peripheral pulses Pulm: Decreased breath sounds at the bases; No wheezing GI: BS (+); Soft; NTND : Deferred MS: Tone intact Skin/Ext: No changes in lesions; 1+ pitting edema LABS:Pertinent Labs : Lab Results Component Value Date WBC 9.69 08/11/2024 POC V Hgb Tot 10.2 (L) 08/11/2024 Hgb 7.1 (L) 08/11/2024 POC A Hct (calc) 26.0 (L) 08/10/2024 POC V Hct (calc) 31.0 (L) 08/11/2024 Hct 21.7 (L) 08/11/2024 Plt Count 126 (L) 08/11/2024 Lab ResultsComponent Value Date POC V Na 135 08/11/2024 Sodium Lvl 143 08/11/2024 POC V K 3.7 08/11/2024 Potassium Lvl 3.9 08/11/2024 POC V Cl 109 08/11/2024 Chloride Lvl 112 (H) 08/11/2024 CO2 Lvl 22.7 08/11/2024 BUN 21 08/11/2024 Creatinine Lvl 0.44 (L) 08/11/2024 POC V Glu 137 (H) 08/11/2024 Glucose Lvl 135 (H) 08/11/2024 Lab ResultsComponent Value Date Calcium Lvl 7.4 (L) 08/11/2024 Magnesium 2.39 08/11/2024 Phosphorus Lvl 2.4 08/11/2024 Lab ResultsComponent Value Date AST 84 (H) 08/11/2024 ALT 53 (H) 08/11/2024 Alkaline Phosphatase 125 (H) 08/11/2024 Lab ResultsComponent Value Date PTT 71.1 (H) 08/11/2024 Prothrombin Time (PT) 14.6 08/11/2024 INR 1.12 08/11/2024 No results found for: "COLORU", "CLARITYU", "SPECGRAV", "PHUR", "PROTUR", "GLUCOSEU", "KETONESU", "NITRITEU", "LEUKOCYTESUR", "BILIRUBINUR", "UROBILINOGEN" No results found for: "CK", "TROPONINT", "TROPONINI", "BNP" IMAGING:@IMAGES@ EKG:Encounter Date: 07/31/24 ECG 12 lead Result Value Ventricular Rate 66 Atrial Rate 66 [place] Interval 132 QRS Duration 70 QT/QTc 418 QTc Calculation 438 P-Dayton 24 R-Dayton -27 T-Dayton 32 Impression SINUS RHYTHM NORMAL ECG WHEN COMPARED WITH ECG OF 30-JUL-2024 14:12, SINUS RHYTHM HAS REPLACED ATRIAL FIBRILLATION RATE HAS DECREASED CRITERIA FOR ANTERIOR INFARCTION NO LONGER PRESENT Confirmed by Jaiden Liriano ([id number]) on 07/31/2024 5:22:03 PM ECHO: Transthoracic echo (TTE) complete 07/31/2024 Interpretation SummaryLeft Ventricle: Left ventricle size is normal. Findings consistent with eccentric hypertrophy. Mild global hypokinesis present. Mildly reduced systolic function with an estimated EF of 45 - 50%. Grade I diastolic dysfunction of the left ventricle. Apical thrombus is not present verified by the use of contrast. Right Ventricle: Right ventricle size is normal. Normal systolic function in the right ventricle. TAPSE is 19 mm. Pericardium: No pericardial effusion present. Transesophageal echo (MARUQES) with possible cardioversion 07/30/2024 Interpretation SummaryLeft Ventricle: Left ventricle size is normal. Mild global hypokinesis present. Reduced systolic function with an estimated EF of 45 - 50%. Right Ventricle: Right ventricle size is normal. Normal systolic function in the right ventricle. Left Atrium: Normal sized left atrial appendage. No thrombus in left atrium present. Transthoracic echo (TTE) complete 07/28/2024 Interpretation SummaryPatient is in atrial fibrillation with RVR at the time of this study. LV systolic function assessment is suboptimal. Left Ventricle: Left ventricle size is normal. Mild global hypokinesis present. Mildly reduced systolic function with an estimated EF of 45 - 50%. Right Ventricle: Right ventricle size is normal. Normal systolic function in the right ventricle. Left Atrium: Left atrium is moderately dilated. Mitral Valve: Moderate mitral regurgitation present. Tricuspid Valve: Mild to moderate tricuspid regurgitation present. Mild to moderate pulmonary hypertension present. RVSP is 46.00 mmHg. Pericardium: Trivial pericardial effusion present. Left pleural effusion present. [1] Patient Active Problem List Diagnosis New onset of congestive heart failure (CMS/HCC) (HCC) Cellulitis Atrial fibrillation with RVR (CMS/HCC) (HCC) Prediabetes Elevated troponin Hypertension Tobacco use Coronary artery disease Hyponatremia Hyperglycemia Pulmonary edema cardiac cause (CMS/HCC) (HCC) Triple vessel coronary artery disease Acute non-ST elevation myocardial infarction (NSTEMI) (CMS/HCC) (HCC) Tachy-sen syndrome (CMS/HCC) (HCC) Tobacco use disorder Peripheral vascular disease (HCC) Normocytic anemia Diabetes mellitus (HCC) Compression fracture of T10 vertebra (HCC) Cardiac arrest (HCC) Shock (CMS/HCC) (HCC) Nonrheumatic mitral valve regurgitation [2] Past Medical History: Diagnosis Date Diabetes mellitus (HCC) PATIENT CLAIMED THAT SHE HAS DIABETES [3] History reviewed. No pertinent surgical history. [4] Family History: Problem Relation Name Age of Onset Diabetes Mother No Known Problems Father [5] No Known Allergies * Craig Nath MD - 08/10/2024 3:55 PM CDT AHF ICU Structural Interventional Consult: [place] Numbers: 8, 28/6, At P4 large V waves up to 40 mmHg, improved to 20 mmHg at P8 Latest C 08/06/2024:Successful LM-LAD PCI with SARAH x4 complicated by PEA arrest with CPR ~15 min before cannulated for VA ECMO; hemodynamic instability and PEA arrest thought to be secondary to high LVEDP/stunning during the case. Acute stent thrombosis secondary to stasis/no pulsatility on repeat angiography after cardiac arrest; successfully treated with PTCA. Occlusive R FIELD MARKETING TEAM LEADER (19Fr) cannula and L FIELD MARKETING TEAM LEADER (9Fr) sheath. DIESEL TRAILER MECHANIC of R SFA not amenable to antegrade sheath. Latest RHC 07/30/2024:RA: Mean 4 mmHg RV 35/0 with RVEDP 5 mmHg PA 36/12 with mean of 22 mmHg PCWP estimated 12-14 mmHg Tucker: CO 3.4 L/min, CI 2.2 L/m2/min TTE 08/07/24: EF 35-40%, normal RV size and function, Impella 5.5 cm in LVcavity, moderate MR, trivial pericardial effusion. TTE 07/31/2024:Left Ventricle: Left ventricle size is normal. Findings consistent with eccentric hypertrophy. Mild global hypokinesis present. Mildly reduced systolic function with an estimated EF of 45 - 50%. Grade I diastolic dysfunction of the left ventricle. Apical thrombus is not present verified by the use of contrast. Right Ventricle: Right ventricle size is normal. Normal systolic function in the right ventricle. TAPSE is 19 mm. Pericardium: No pericardial effusion present. Duplex Arterial Ultrasound 08/06IMPRESSION: 1. Right mid and distal SFA and proximal popliteal artery occlusion. Post occlusion reconstitution distal popliteal, posterior tibial, anterior tibial and dorsalis pedis arteries with low resistance low flow waveform. 2. Left mid and distal SFA occlusion with low resistance low flow with reconstitution within the proximal and distal popliteal, and anterior and posterior tibial and dorsalis pedis arteries. Objective Last Recorded Vitals Blood pressure 102/62, pulse 68, temperature 37.3 ?C (99.1 ?F), resp. rate (!) 26, height 1.6 m (5' 3"), weight 61.7 kg (136 lb), SpO2 100%. Physical Exam:GEN: lying down comfortably, not in acute distress HEENT: normal conjuctivae, anicteric sclera neck: no JVD , supple, normal ROM CV: RRR s1s2 no mrg, pulse +2 resp: CTAB, no wheezing/crackles GI: soft, non tender MSK: no joint swelling or pain to palpation extremities: no edema, clubbing or cyanosis Neuro: AOx3, moving all extremities, speech normal Skin: no new rashes, bruises Assessment & PlanCardiac arrest (HCC) Shock ([facility]) ([facility]) Nonrheumatic mitral valve regurgitation -- S/p PCI x4 to LM-LAD c/b PEA arrest with 15 minutes of CPR and ECMO cannulation, finding of acute stent thrombosis s/p PTCA > with subsequent Impella 5.5 placement and decannulation of ECMO on 08/06/2024 -Wean pressors/Impella support as able -Moderate MR noted on TTE and at bedside with large V waves on wedge waveform, - Inability to wean Impella - MARQUES showed severe MR with mixed valvular pathology. Recommend M-YAQUELIN for management of acute on chronic MR with mixed etiology given inability to wean Impella 5.5 and repeated episodes of acute pulmonary edema. Risks and benefits discussed with the patient. Triple vessel coronary artery diseaseAcute non-ST elevation myocardial infarction (NSTEMI) ([facility]) ([facility]) - S/p PCI x4 to LM-LAD c/b PEA arrest with 15 minutes of CPR and ECMO cannulation, > with subsequent Impella 5.5 placement and decannulation of ECMO on 08/06/2024. - Lipids: continue atorvastatin 40 mg PO daily - Antiplatelet: continue aspirin 81 mg PO daily; brilinta 90 mg BID Tachy-sen syndrome ([facility]) ([facility])- Likely ischemia-related; will reassess rhythm and rate status after re-vascularization - Continue telemetry monitoring while inpatient Atrial fibrillation with RVR ([facility]) ([facility]) - Anticoagulation: heparin drip while hospitalized; DOAC after procedures/surgery -Continue amiodarone ggt for now. Compression fracture of T10 vertebra (HCC) - Incidental finding noted on admission CT - No surgical intervention at this time per ortho spine team Peripheral vascular disease (HCC) -Arterial doppler with evidence of PAD with distal reconstitution -9 [place] Sheath removed 08/07 Prediabetes - Sliding scale insulin + Plan for M-YAQUELIN today * Shahzad Rg PharmD - 08/10/2024 3:29 PM CDT Clinician Notes: Continue current dose of 750 mg Q12H Next vancomycin level on 3 AM Recommended Dose: 750 mg IV over 1 hour every 12 hours for 2 days Next Dose At: 00:13 on Aug 11 2024 Dosing Interval: 12 hours Infusion Length: 1 hours Dose Valid For: 2 days only Dose Recommendation Method: Individualized model Target Outcome: AUC24: 450 mcg.h/mL Predicted Outcome: AUC24: 442.42 mcg.h/mL Predicted Peak: 24.8 mcg/mL Predicted Trough: 13.2 mcg/mL Predicted AUC24: 442.4 mcg.h/mL Predicted AUC12: 221.2 mcg.h/mL Most Recent Dose: 750 mg over 1 hours at 12:13 on Aug 10 2024 Most Recent SCr: 0.5 mg/dL at 03:05 on Aug 10 2024 Most Recent Blood Concentration: 18.4 mcg/mL at 22:54 on Aug 07 2024 Peak: 23.9 mcg/mL Trough: 12.7 mcg/mL AUC24: 426 mcg.h/mL AUC12: 213 mcg.h/mL * Dino Domínguez MD - 08/10/2024 3:03 PM CDT ID PULMONARY CRITICAL CARE MEDICINE - NoteType: PROGRESS NOTE Patient ID: SALBADOR is a 69 y.o. female. Chief Complaint: No chief complaint on file. Admission date: 07/31/2024 Referring Physician: Leila Lozano NP Reason for Consult: Reason For Consult: Critical care management Interval events Back on impella P-7 MARQUES this morning showing severe MR Used BiPAP overnight Amio and heparin gtt ASSESSMENT/PLAN: Problem List: Principal Problem: Triple vessel coronary artery disease Active Problems: Acute non-ST elevation myocardial infarction (NSTEMI) (CMS/HCC) (HCC) Tachy-sen syndrome (CMS/HCC) (HCC) Tobacco use disorder Peripheral vascular disease (HCC) Normocytic anemia Compression fracture of T10 vertebra (HCC) Cardiac arrest (HCC) Shock (CMS/HCC) (HCC) New onset of congestive heart failure (CMS/HCC) (HCC) Atrial fibrillation with RVR (CMS/HCC) (HCC) Prediabetes Coronary artery disease Diabetes mellitus (HCC) Nonrheumatic mitral valve regurgitation Problem List[1] Principal Problem: Triple vessel coronary artery disease Active Problems: Acute non-ST elevation myocardial infarction (NSTEMI) (CMS/HCC) (HCC) Tachy-sen syndrome (CMS/HCC) (HCC) Tobacco use disorder Peripheral vascular disease (HCC) Normocytic anemia Acute hypoxic respiratory failure (HCC) New onset of congestive heart failure (CMS/HCC) (HCC) Atrial fibrillation with RVR (CMS/HCC) (HCC) Prediabetes Diabetes mellitus (HCC) #Multivessel CAD with left main dx. #acute hypoxemic respiratory failure #Pulmonary edema #preop pulmonary edema #CHF #cellulitis #afib RVR #dm2 #htn #tobacco use Assessment: 69 yo female w/ PMH including HTN, DM, CAD and tobacco abuse who was transferred to [facility] for revascularization after LHC at [facility] revealed multivessel disease with severe L main disease. Other relevant events at OSH included cellulitis 2/2 to spider bite and hypoxic respiratory failure requiring bipap, afib RVR and possible new diagnosis of CHF (EF 45-50%). Neuro/Psych: -Delirium precautions - start pain meds: tylenol and robaxin, gabapentin CV: - LHC (07/30/24) notable for severe 80% LM disease, and severe multivessel disease. She declined CABG, plan is for high risk PCI - Cont. Asa and atorvastatin - MARQUES, mild global hypokinesis, reduced EF 45-50% and DCCV (07/30/24). - Amiodarone on hold given tachy sen syndrom, cont heparin gtt for afib - s/p impella 5.5, bridge to recovery. - mitral clip today Resp: - wean supplemental oxygen, wean as tolerated to maintain spo2 >92% - CT chest (07/31)- Small bilateral pleural effusions, greater on the left. Dependent consolidative opacities with air bronchogram and surrounding groundglass in the bilateral lower lobes. Mild diffuse groundglass is associated with interlobular septal thickening. Scattered bilateral subsegmental atelectasis in both lungs. Minimal upper lobe predominant centrilobular emphysema. - PFT(07/31) - Restrictive ventilatory defect likely in setting of pulmonary edema and opacities seen on CT chest. - CXR with pulmonary congestion and pleural effusion; minimal o2 requirement, no need for drainage - bipap at night for volume expansion - IS and VEP GI/Nutrition: - resume po diet - LFTs improving - bowel regimen Renal/Electrolytes: - UOP is good, - PRN bumex today - Replace electrolytes per unit protocol - Monitor I/Os Endo: Lab Results Component Value Date Hgb A1C 6.45 (H) 07/31/2024 TSH 1.224 07/28/2024 - BG goal 120 - 180, SSI as needed - SSI Heme/Onc: -monitor For bleeding and coagulopathies - Transfuse to maintain hgb >7 - impella heparin gtt - low fixed dose heparin ID: - dc cefepime, all cx are negative - MRSA swab - pending final resp cultures Msk/Skin/Deconditioned: - Consult PT/OT. - Continue wound care and sacral decubitus prevention. To Do - mitral clip today - impella weaning tomorrow - keep npo - ICU quality > DVT prophylaxis: heparin gtt, SCD > PPI prophylaxis: start PPI > Nutrition/glucose control: SSI, BG 120-180 > Line and tubes: continue lines while attempting impelal weaning > Perkins catheter: remove perkins > Sedation: off > Date of intubation: 08/06 > Restraints: placed This patient is critically ill. I spent 40 minutes of critical care time with this patient, not including procedure time Dino Domínguez MD [facility] Pulmonary and Critical Care Medicine MSO# [id number] HISTORY OF PRESENT ILLNESS: NO Hampton is a 69 y.o. female with past medical history of hypertension, diabetes mellitus (on no meds), reported history of coronary artery disease and tobacco use, was transferred from [facility] after LHC revealed severe left main disease and multivessel disease. She was originally admitted for hand cellulitis after a spider bite, but during that hospital stay she had hypoxic respiratory failure requiring BiPAP, NSTEMI, possibly newly diagnosed CHF (EF 45-50%), and Afib w/ RVR. She underwent a MARQUES w/ cardioversion. LHC and RHC on 07/31/23 which showed normal filling pressures, LHC which showed 80% mid to distal LM lesion extending into the ostium of LAD, 60-70% mid LAD, diffuse LCx and OM disease, and 70-80% proximal to mid RCA disease. She was transferred to [facility] for revascularizaton. On 08/06 she underwent PCI to LM-LAD with SARAH x4 complicated by cardiac arrest x2 where she was cannulated with VA ECMO. 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 No data found. Enter data into the [facility] Mental Health Specialist navigator to see it here. PAST MEDICAL HISTORY: Medical History[2] PAST SURGICAL HISTORY: Surgical History[3] FAMILY HISTORY: Family History[4] SOCIAL HISTORY: Social History Socioeconomic History Marital status: Spouse name: Not on file Number of children: Not on file Years of education: Not on file Highest education level: Not on file Occupational History Not on file Tobacco Use Smoking status: Former Current packs/day: 0.00 Types: Cigarettes Quit date: 1966 Years since quittin.2 Smokeless tobacco: Current Tobacco comments: PATIENT VERBALIZED "WELL NOW THAT I AM IN THE HOSPITAL, I CAN'T REALLY SMOKE Vaping Use Vaping status: Not on file Substance and Sexual Activity Alcohol use: Yes Alcohol/week: 6.0 standard drinks of alcohol Types: 6 Cans of beer per week Comment: [place] EVERYOTHER WEEKEND Drug use: Never Sexual activity: Not Currently Other Topics Concern Not on file Social History Narrative Not on file Social Drivers of Health Financial Resource Strain: Not on file Food Insecurity: No Food Insecurity (07/31/2024) Hunger Vital Sign Worried About Running Out of Food in the Last Year: Never true Ran Out of Food in the Last Year: Never true Transportation Needs: No Transportation Needs (07/31/2024) PRAPARE - Transportation Lack of Transportation (Medical): No Lack of Transportation (Non-Medical): No Physical Activity: Not on file Stress: Not on file Social Connections: Not on file Intimate Partner Violence: Not At Risk (07/31/2024) Humiliation, Afraid, Rape, and Kick questionnaire Fear of Current or Ex-Partner: No Emotionally Abused: No Physically Abused: No Sexually Abused: No Housing Stability: Low Risk (07/31/2024) Housing Stability Vital Sign Unable to Pay for Housing in the Last Year: No Number of Times Moved in the Last Year: 0 Homeless in the Last Year: No ALLERGIES: Allergies[5] HOME MEDICATIONS:Medication Documentation Review Audit Reviewed by Aracelis Chavez RN (Registered Nurse) on 08/09/24 at 0722 Medication Order Taking? Sig Documenting Provider Last Dose Statusevolocumab (Repatha SureClick) 140 MG/ML Subcutaneous Solution Auto-injector [id number] Inject 1 mL under the skin every 14 days. Leila Lozano NP Active acetaminophen, 650 mg, Oral, q6h [Held by provider] amiodarone, 200 mg, Oral, BID aspirin, 81 mg, Oral, Daily atorvastatin, 40 mg, Oral, Daily Boost Glucose Control, 1 Container, Oral, BID with meals cefepime, 1 g, Intravenous, q8h [START ON 08/11/2024] ferric gluconate (Ferrlecit) IVPB, 250 mg, Intravenous, Daily [START ON 08/11/2024] folic acid, 1 mg, Oral, Daily gabapentin, 100 mg, Oral, q8h methocarbamol, 500 mg, Oral, q8h DARYL midazolam, , , polyethylene glycol (PEG) 3350, 17 g, Oral, Daily sennosides, 1 tablet, Oral, BID thiamine, 100 mg, Nasogastric, Daily ticagrelor, 90 mg, Oral, q12h DARYL vancomycin, 750 mg, Intravenous, q12h amiodarone, 0.5 mg/min, Last Rate: 0.5 mg/min (08/09/242119)amiodarone in D5W 500 mL, , Last Rate: 1 mg/min (08/06/24 1824) EPINEPHrine, , Last Rate: 3 mcg/min (08/06/24 1909) [Held by provider] EPINEPHrine, 3 mcg/min, Last Rate: Stopped (08/08/24 1400) heparin 12,500 Units in dextrose 5 % 500 mL infusion, , Last Rate: 12.1 mL/hr at 08/10/24 0115 heparin, 600 Units/hr, Last Rate: 600 Units/hr (08/10/24 0835) norepinephrine, , Last Rate: Stopped (08/06/24 1939) potassium chloride, , Last Rate: 20 mEq (08/06/24 1727) sodium chloride, , Last Rate: Stopped (08/09/24 0645) PRN medications: amiodarone in D5W 500 mL, calcium gluconate, chlorhexidine, dextrose, dextrose, EPINEPHrine, glucagon, insulin lispro, magnesium sulfate, midazolam, norepinephrine, phenol, potassium & sodium phosphates OR potassium & sodium phosphates, potassium chloride OR potassium chloride OR potassium chloride OR Potassium chloride, potassium chloride, sodium chloride, sodium chloride, sodium chloride, sodium chloride, sodium phosphates 45 mmol in sodium chloride 0.9 % 100 mL IVPB, traMADol, Pharmacy to dose vancomycin AND Vancomycin Pharmacy Dosing PHYSICAL EXAM:Gen: intubated, sedated Neuro: No focal deficits appreciated HEENT: PERRL; EOMI; No scleral icterus CV/Pulses: PE_CV: RRR; 2+ peripheral pulses Pulm: Decreased breath sounds at the bases; No wheezing GI: BS (+); Soft; NTND : Deferred MS: Tone intact Skin/Ext: No changes in lesions; 1+ pitting edema LABS:Pertinent Labs : Lab Results Component Value Date WBC 14.17 (H) 08/10/2024 POC V Hgb Tot 9.2 (L) 08/10/2024 Hgb 8.7 (L) 08/10/2024 POC A Hct (calc) 29.0 (L) 08/09/2024 POC V Hct (calc) 28.0 (L) 08/10/2024 Hct 26.0 (L) 08/10/2024 Plt Count 142 (L) 08/10/2024 Lab ResultsComponent Value Date POC V Na 135 08/10/2024 Sodium Lvl 142 08/10/2024 POC V K 4.0 08/10/2024 Potassium Lvl 4.1 08/10/2024 POC V Cl 111 (H) 08/10/2024 Chloride Lvl 110 (H) 08/10/2024 CO2 Lvl 23.5 08/10/2024 BUN 20 08/10/2024 Creatinine Lvl 0.50 (L) 08/10/2024 POC V Glu 142 (H) 08/10/2024 Glucose Lvl 143 (H) 08/10/2024 POC Glu 142 (H) 08/10/2024 Lab ResultsComponent Value Date Calcium Lvl 7.7 (L) 08/10/2024 Magnesium 2.20 08/10/2024 Phosphorus Lvl 2.1 (L) 08/10/2024 Lab ResultsComponent Value Date AST 30 08/10/2024 ALT 37 08/10/2024 Alkaline Phosphatase 107 08/10/2024 Lab ResultsComponent Value Date PTT 64.8 (H) 08/10/2024 Prothrombin Time (PT) 14.1 08/10/2024 INR 1.07 08/10/2024 No results found for: "COLORU", "CLARITYU", "SPECGRAV", "PHUR", "PROTUR", "GLUCOSEU", "KETONESU", "NITRITEU", "LEUKOCYTESUR", "BILIRUBINUR", "UROBILINOGEN" No results found for: "CK", "TROPONINT", "TROPONINI", "BNP" IMAGING:@IMAGES@ EKG:Encounter Date: 07/31/24 ECG 12 lead Result Value Ventricular Rate 66 Atrial Rate 66 [place] Interval 132 QRS Duration 70 QT/QTc 418 QTc Calculation 438 P-Dayton 24 R-Dayton -27 T-Dayton 32 Impression SINUS RHYTHM NORMAL ECG WHEN COMPARED WITH ECG OF 30-JUL-2024 14:12, SINUS RHYTHM HAS REPLACED ATRIAL FIBRILLATION RATE HAS DECREASED CRITERIA FOR ANTERIOR INFARCTION NO LONGER PRESENT Confirmed by Jaiden Liriano ([id number]) on 07/31/2024 5:22:03 PM ECHO: Transthoracic echo (TTE) complete 07/31/2024 Interpretation SummaryLeft Ventricle: Left ventricle size is normal. Findings consistent with eccentric hypertrophy. Mild global hypokinesis present. Mildly reduced systolic function with an estimated EF of 45 - 50%. Grade I diastolic dysfunction of the left ventricle. Apical thrombus is not present verified by the use of contrast. Right Ventricle: Right ventricle size is normal. Normal systolic function in the right ventricle. TAPSE is 19 mm. Pericardium: No pericardial effusion present. Transesophageal echo (MARQUES) with possible cardioversion 07/30/2024 Interpretation SummaryLeft Ventricle: Left ventricle size is normal. Mild global hypokinesis present. Reduced systolic function with an estimated EF of 45 - 50%. Right Ventricle: Right ventricle size is normal. Normal systolic function in the right ventricle. Left Atrium: Normal sized left atrial appendage. No thrombus in left atrium present. Transthoracic echo (TTE) complete 07/28/2024 Interpretation SummaryPatient is in atrial fibrillation with RVR at the time of this study. LV systolic function assessment is suboptimal. Left Ventricle: Left ventricle size is normal. Mild global hypokinesis present. Mildly reduced systolic function with an estimated EF of 45 - 50%. Right Ventricle: Right ventricle size is normal. Normal systolic function in the right ventricle. Left Atrium: Left atrium is moderately dilated. Mitral Valve: Moderate mitral regurgitation present. Tricuspid Valve: Mild to moderate tricuspid regurgitation present. Mild to moderate pulmonary hypertension present. RVSP is 46.00 mmHg. Pericardium: Trivial pericardial effusion present. Left pleural effusion present. [1] Patient Active Problem List Diagnosis New onset of congestive heart failure (CMS/HCC) (HCC) Cellulitis Atrial fibrillation with RVR (CMS/HCC) (HCC) Prediabetes Elevated troponin Hypertension Tobacco use Coronary artery disease Hyponatremia Hyperglycemia Pulmonary edema cardiac cause (CMS/HCC) (HCC) Triple vessel coronary artery disease Acute non-ST elevation myocardial infarction (NSTEMI) (CMS/HCC) (HCC) Tachy-sen syndrome (CMS/HCC) (HCC) Tobacco use disorder Peripheral vascular disease (HCC) Normocytic anemia Diabetes mellitus (HCC) Compression fracture of T10 vertebra (HCC) Cardiac arrest (HCC) Shock (CMS/HCC) (HCC) Nonrheumatic mitral valve regurgitation [2] Past Medical History: Diagnosis Date Diabetes mellitus (HCC) PATIENT CLAIMED THAT SHE HAS DIABETES [3] History reviewed. No pertinent surgical history. [4] Family History: Problem Relation Name Age of Onset Diabetes Mother No Known Problems Father [5] No Known Allergies * Marisa Neri RN - 08/10/2024 3:02 PM CDT CASE MANAGEMENT ROUTINE DISCHARGE PLAN NOTE LOS: 10 Barriers to Discharge: Barrier to Discharge: MV CAD. IV abx x2, amio, heparin. 08/06 Impella. Plan: YAQUELIN and Reny Clip. DISCHARGE PLAN A/B: Home MILENA: 1 week. * Michael Jeffries DO - 08/10/2024 2:04 PM CDT Hemotherapy Progress Note Patient ID: Nichelle Hampton (69 y.o. female) Chief Complaint: No chief complaint on file. Admission Date: 07/31/2024 Referring Physician/Service: AHF ICU Reason for Consult: New Impella HPI: 69 yo female w/ PMH including HTN, DM, CAD and tobacco abuse who was transferred to [facility] for revascularization after LHC at [facility] revealed multivessel disease with severe L main disease. Other relevant events at OSH included cellulitis 2/2 to spider bite and hypoxic respiratory failure requiring bipap, afib RVR and possible new diagnosis of CHF (EF 45-50%). Went for PCI x4 on 08/06 c/b PEA arrest s/p ECMO s/p Impella 5.5 placement. SUBJECTIVE: On Impella support On Impella heparin purge and IV heparin drip at 600u/hr On ASA and Brilinta No signs of bleeding. Planned for Interventional YAQUELIN with MitraClip today. OBJECTIVE: EXAM BP 102/62 | Pulse 68 | Temp 37.2 ?C (99 ?F) | Resp (!) 25 | Ht 1.6 m (5' 3") | Wt 61.7 kg (136 lb) | SpO2 98% | BMI 24.09 kg/m? Gen: Comfortable, awake and alert Neuro: No focal deficits appreciated HEENT: PERRL; EOMI; No scleral icterus CV/Pulses: RRR; 2+ peripheral pulses Pulm: on HFNC symmetric chest rise GI: Soft; NTND : Deferred MS: Tone intact Skin/Ext: No changes in lesions; 1+ pitting edema LABS: Lab Results Component Value Date Albumin Lvl 2.5 (L) 08/10/2024 Albumin Lvl 2.7 (L) 08/09/2024 Protein 5.0 (L) 08/10/2024 Protein 5.0 (L) 08/09/2024 ALT 37 08/10/2024 ALT 52 (H) 08/09/2024 AST 30 08/10/2024 AST 45 (H) 08/09/2024 Bilirubin Total 0.65 08/10/2024 Bilirubin Total 0.84 08/09/2024 WBC 14.17 (H) 08/10/2024 WBC 16.84 (H) 08/09/2024 POC V Hgb Tot 9.2 (L) 08/10/2024 Hgb 8.7 (L) 08/10/2024 Plt Count 142 (L) 08/10/2024 Plt Count 163 (L) 08/09/2024 INR 1.07 08/10/2024 INR 1.03 08/09/2024 PTT 64.8 (H) 08/10/2024 PTT 59.1 (H) 08/09/2024 LDH Tot 436 (H) 08/10/2024 LDH Tot 460 (H) 08/09/2024 Hgb, Plasma 20 08/10/2024 Hgb, Plasma 10 08/09/2024 Ferritin Lvl 481 (H) 08/09/2024 Results from last 7 days Lab Units 08/10/24 0305 08/09/24 1927 08/09/24 1345 08/09/24 0405 INR 1.07 -- 1.03 1.21* PTT Seconds 64.8* 59.1* 49.5* 42.3* IMAGING: Images were reviewed. ASSESSMENT AND PLAN: 69 yo female w/ PMH including HTN, DM, CAD and tobacco abuse who was transferred to [facility] for revascularization after LHC at [facility] revealed multivessel disease with severe L main disease. Other relevant events at OSH included cellulitis 2/2 to spider bite and hypoxic respiratory failure requiring bipap, afib RVR and possible new diagnosis of CHF (EF 45-50%). Went for PCI x4 to LM-LAD c/b PEA arrest with 15 minutes of CPR and ECMO cannulation, finding of acute stent thrombosis s/p PTCA > with subsequent Impella 5.5 placement and decannulation of ECMO on 08/06/2024. Anemia/RBC:H/H low but acceptable. 1u pRBCs 08/04, 08/06 in OR, 2 units pRBC 08/07 Has anemia of chronic disease with underlying GALEN Blood Type: O Pos ; Antibody screen: negative Transfuse if Hb < 7/8 mmHg/dL. Platelet:Count is adequate and relatively stable Initial drop due to Impella placement On Asa and Brillinta Transfuse if Platelet count < 20K or <50K if actively bleeding. Coagulation:PT/INR is normal PTT elevated due to Heparin Fibrinogen WNL, transfuse cryoprecipitate for fibrinogen <150 mg/dL Anticoagulation for Impella 5.5:Impella heparin purge IV heparin drip at 600 u/hr. PTT goal 60-80 seconds. Monitor for bleeding. * Navdeep Pelletier, PT - 08/10/2024 1:43 PM CDT Encounter Note Patient Name: Nichelle Hampton Today's Date: 08/10/2024 Missed Treatment Time and Reason Missed Time Reason: Unavailable (Comment) (having MitraClip soon) Others Present: DIMITRYs and RN Pt also seen in AM. Will continue to follow. Case discussed with DIMITRYs, with RN's. Navdeep Pelletier PT * Orestes Agrawal MD - 08/10/2024 7:58 AM CDT AHF ICU PROGRESS NOTE Subjective Having intermittent suctioning events on Impella P7 I/O: Intake/Output Summary (Last 24 hours) at 08/10/2024 0803 Last data filed at 08/10/2024 0600 Gross per 24 hour Intake 1928.24 ml Output 1605 ml Net 323.24 ml Diuresis: None Drips: amiodarone, heparin Mechanical Support: Impella 5.5 [place] Numbers: TTE 08/07/24: EF 35-40%, normal RV size and function, Impella 5.5 cm in LV cavity, moderate MR, trivial pericardial effusion. LHC 08/06/2024: Successful LM-LAD PCI with SARHA x4 complicated by PEA arrest with CPR ~15 min before cannulated for VA ECMO; hemodynamic instability and PEA arrest thought to be secondary to high LVEDP/stunning during the case. Acute stent thrombosis secondary to stasis/no pulsatility on repeat angiography after cardiac arrest; successfully treated with PTCA. Occlusive R FIELD MARKETING TEAM LEADER (19Fr) cannula and L FIELD MARKETING TEAM LEADER (9Fr) sheath. DIESEL TRAILER MECHANIC of R SFA not amenable to antegrade sheath. TTE 07/31/2024: Left Ventricle: Left ventricle size is normal. Findings consistent with eccentric hypertrophy. Mild global hypokinesis present. Mildly reduced systolic function with an estimated EF of 45 - 50%. Grade I diastolic dysfunction of the left ventricle. Apical thrombus is not present verified by the use of contrast. Right Ventricle: Right ventricle size is normal. Normal systolic function in the right ventricle. TAPSE is 19 mm. Pericardium: No pericardial effusion present. Latest RHC 07/30/2024: RA: Mean 4 mmHg RV 35/0 with RVEDP 5 mmHg PA 36/12 with mean of 22 mmHg PCWP estimated 12-14 mmHg Tucker: CO 3.4 L/min, CI 2.2 L/m2/min Duplex Arterial Ultrasound 08/06 IMPRESSION: 1. Right mid and distal SFA and proximal popliteal artery occlusion. Post occlusion reconstitution distal popliteal, posterior tibial, anterior tibial and dorsalis pedis arteries with low resistance low flow waveform. 2. Left mid and distal SFA occlusion with low resistance low flow with reconstitution within the proximal and distal popliteal, and anterior and posterior tibial and dorsalis pedis arteries. Objective Last Recorded Vitals Blood pressure 102/62, pulse 67, temperature 37.2 ?C (99 ?F), resp. rate (!) 25, height 1.61 m (5' 3.39"), weight 61.8 kg (136 lb 3.9 oz), SpO2 96%. Physical Exam:GEN: lying down comfortably, not in acute distress HEENT: normal conjuctivae, anicteric sclera neck: no JVD , supple, normal ROM CV: RRR s1s2 no mrg, pulse +2 resp: CTAB, no wheezing/crackles GI: soft, non tender MSK: no joint swelling or pain to palpation extremities: no edema, clubbing or cyanosis Neuro: AOx3, moving all extremities, speech normal Skin: no new rashes, bruises Assessment & PlanCardiac arrest ([facility]) Shock ([facility]) ([facility]) Nonrheumatic mitral valve regurgitation -- S/p PCI x4 to LM-LAD c/b PEA arrest with 15 minutes of CPR and ECMO cannulation, finding of acute stent thrombosis s/p PTCA > with subsequent Impella 5.5 placement and decannulation of ECMO on 08/06/2024 -Wean pressors/Impella support as able -At P4 large V waves up to 40 mmHg, improved to 20 mmHg at P8 -Moderate MR noted on TTE and at bedside with large V waves on wedge waveform, plan for MARQUES Triple vessel coronary artery diseaseAcute non-ST elevation myocardial infarction (NSTEMI) ([facility]) ([facility]) - S/p PCI x4 to LM-LAD c/b PEA arrest with 15 minutes of CPR and ECMO cannulation, > with subsequent Impella 5.5 placement and decannulation of ECMO on 08/06/2024. - Lipids: continue atorvastatin 40 mg PO daily - Antiplatelet: continue aspirin 81 mg PO daily; brilinta 90 mg BID Tachy-sen syndrome (CMS/HCC) (HCC)- Likely ischemia-related; will reassess rhythm and rate status after re-vascularization - Continue telemetry monitoring while inpatient Atrial fibrillation with RVR (CMS/HCC) (HCC) - Anticoagulation: heparin drip while hospitalized; DOAC after procedures/surgery -Continue amiodarone ggt for now. Compression fracture of T10 vertebra (HCC) - Incidental finding noted on admission CT - No surgical intervention at this time per ortho spine team Peripheral vascular disease (HCC) -Arterial doppler with evidence of PAD with distal reconstitution -9 [place] Sheath removed 08/07 Prediabetes - Sliding scale insulin + Current Diet: NPO Diet Cardiology Staff Attestation;I have seen and examined the patient with Dr. Velez on 08/10/2024 I have reviewed all the clinical information, lab investigations, radiographic and other imaging data. I agree with findings, assessment and plan as outlined. Treatment plan was formulated under my direct supervision. * Nirmal Cagle III, MD - 08/10/2024 7:25 AM CDT [facility] CCU Consult Note Patient ID: Nichelle Hampton is a 69 y.o. female. Chief Complaint: No chief complaint on file. Referring Physician: Leila Lozano NP Reason for Consult: Reason For Consult: Critical care management Assessment: Nichelle Hampton is a 69 yo F with HTN, T2DM, and CAD who was transferred to [facility] for high risk PCI which she went under on 08/06 with x4 SARAH placement c/b PEA requiring emergent vaECMO that was transitioned to Impella 5.5 (08/06). Extubated on 08/07 to [facility]. Pending mitral clip today. Interval Events: Orthopedics cleared spinal imaging but will need TLSO brace when out of bed. MR on TTE yesterday with impella on P4 increased to P7 pending MARQUES today for further work-up. Tolerated BiPAP overnight on nasal cannula this AM. Improvement of atelectasis on AM CXR. MARQUES done at bedside showed worsening MR when impella flow reduced. Plan to go for mitral clip today. Problem List: Patient Active Problem List Diagnosis Cardiac arrest ([facility]) Shock ([facility]) ([facility]) Compression fracture of T10 vertebra ([facility]) Acute non-ST elevation myocardial infarction (NSTEMI) ([facility]) ([facility]) Tachy-sen syndrome ([facility]) ([facility]) Tobacco use disorder Peripheral vascular disease ([facility]) Normocytic anemia Nonrheumatic mitral valve regurgitation Triple vessel coronary artery disease Diabetes mellitus ([facility]) New onset of congestive heart failure ([facility]) ([facility]) Cellulitis Atrial fibrillation with RVR ([facility]) ([facility]) Prediabetes Elevated troponin Hypertension Tobacco use Coronary artery disease Hyponatremia Hyperglycemia Pulmonary edema cardiac cause ([facility]) ([facility]) Plan: Neurological: -continue MMPR - scheduled tylenol, gabapentin, robaxin; prn tramadol -delirium precautions with family visitation, frequent re-orientation, regulation of day night cycles Cardiovascular: -MCS/VAD management per AHF - Impella 5.5 -vasoactive/inotropic management per AHF - none -rhythm management per AHF/EP - amio gtt -anticoagulation management per AHF - heparin gtt -volume management per AHF/renal - consider diuresis -CAD management per AHF - ASA/Brillinta/atorvastatin -GDMT/BP management per AHF - holding Respiratory: -encourage IS/mobility - BiPAP at night for volume expansion -titrate oxygen therapy to SpO2<92% Gastrointestinal: -cleared for regular thin liquid diet after FEES, NPO for mitral clip -continue bowel regimen -continue GI prophylaxis Renal: -continue to monitor renal indices -avoid nephrotoxic medications -renally dose medications -replete electrolytes -volume management per CV section Endocrine: -continue SSI with basal/bolus if needed -blood sugar goals of 140-180 Hematology/Oncology: -no evidence of active bleeding, cleaning impella dressing -transfuse for Hgb<7 or hemodynamic instability with active bleeding -anticoagulation per CV section - Transfusions: 08/04 1 pRBC 08/06 1 pRBC 08/07 2 pRBC 08/08 2 pRBC Infectious Disease: -patient with no active signs/symptoms of infection -monitor WBC/temperature curve; obtain blood cultures and infectious work-up if clinically indicated -MRSA nares negative, Procal 2.22 to 1.57 -discontinue cefepime, respiratory culture finalized with normal tonny. Continue vancomycin pending mitral clip today can consider transition to doxycycline tomorrow Musculoskeletal/Skin: -PT/OT if appropriate -Spine brace, TLSO, for T10 extension injury, when out of bed -encourage ambulation and OOB to chair if tolerated -nursing care with frequent turning to prevent pressure injury TLD: Drain 08/06/24 Closed drain, to suction Right;Superior Chest 19 Fr. (Active) Introducer 08/06/24 Double-lumen;[place]-Lei in place Internal jugular vein Right (Active) Arterial Line 08/07/24 Right Radial (Active) Midline Catheter 08/04/24 Single-lumen 4 Right Basilic vein (Active) ICU Quality Review -ICU day: 3d 9h -mechanically ventilated: no -restraints indicated: no -PT/OT: ordered -DVT prophylaxis: systemic anticoagulation -GI prophylaxis: yes -central Lines: RIJ swan -arterial Lines: right radial -devices: Impella 5.5 axial -perkins: no -tubes/drains: Right superior chest tube -Pressure injury: Pressure injury: none Recommendations not finalized until attested by attending. Nirmal Cagle MD PGY 2 [facility] | Internal Medicine PAST MEDICAL HISTORY: Medical History[1] PAST SURGICAL HISTORY: Surgical History[2] FAMILY HISTORY: Family History[3] SOCIAL HISTORY: reports that she quit smoking about 58 years ago. Her smoking use included cigarettes. She uses smokeless tobacco. She reports current alcohol use of about 6.0 standard drinks of alcohol per week. She reports that she does not use drugs. ALLERGIES: Allergies[4] HOME MEDICATIONS: Medication Documentation Review Audit Reviewed by Aracelis Chavez RN (Registered Nurse) on 08/09/24 at 0722 Medication Order Taking? Sig Documenting Provider Last Dose Status evolocumab (Repatha SureClick) 140 MG/ML Subcutaneous Solution Auto-injector [id number] Inject 1 mL under the skin every 14 days. Leila Lozano NP Active Vitals:Visit Vitals BP 102/62 Pulse 67 Temp 37.2 ?C (99 ?F) Resp (!) 25 Ht 1.61 m (5' 3.39") Wt 61.8 kg (136 lb 3.9 oz) SpO2 96% BMI 23.84 kg/m? OB Status Postmenopausal Smoking Status Former BSA 1.66 m? Tube/Drain Output:Output by Drain (mL) 08/08/24 0700 - 08/08/24 1859 08/08/24 1900 - 08/09/24 0659 08/09/24 0700 - 08/09/24 1859 08/09/24 1900 - 08/10/24 0659 08/10/24 0700 - 08/10/24 0725 Drain 08/06/24 Closed drain, to suction Right;Superior Chest 19 Fr. 0 0 Physical Exam Constitutional: She appears healthy. No distress. HENT: Nose: Nose normal. Mouth/Throat: Oropharynx is clear. Eyes: Conjunctivae are normal. Pulmonary/Chest: Breath sounds normal. She has no wheezes. She has no rales. She exhibits no tenderness. Abdominal: Soft. She exhibits no distension. Musculoskeletal: General: No edema. Neurological: She is alert and oriented to person, place, and time. Skin: Skin is warm. Labs:Last ABG Results from last 7 days Lab Units 08/09/24 1719 08/09/24 1234 08/09/24 0909 POC PH, ARTERIAL 7.43 7.41 7.44 POC PCO2, ARTERIAL mmHg 31* 31* 32* POC PO2, ARTERIAL mmHg 76* 107 64* POC HCO3, ARTERIAL mMol/L 21* 20* 22 POC SO2, ARTERIAL (CALC) % 95.5 98.2 92.9* POC SO2, ARTERIAL % 97.5 99.6 -- POC BASE EXCESS, ARTERIAL mMol/L -3* -4* -2 Last CBC ResultLast Lab Result Automated Differential Collection Time: 08/10/24 3:05 AM Result Value Ref Range Segs % 72.6 (H) 40.9 - 70.4 % Lymphs % 15.5 15.3 - 46.4 % Monos % 8.7 3.9 - 10.9 % Eos % 1.5 0.3 - 4.1 % Basos % 0.5 0.2 - 1.3 % Immature Grans % 1.2 (H) 0.1 - 1 % Segs # 10.30 (H) 2.03 - 7.09 10*3/uL Lymphs # 2.19 1.09 - 3.65 10*3/uL Monos # 1.23 (H) 0.27 - 0.78 10*3/uL Eos # 0.21 0.02 - 0.33 10*3/uL Basos # 0.07 0.01 - 0.09 10*3/uL Imm Grans # 0.17 (H) 0.01 - 0.07 10*3/uL Complete Blood Count Collection Time: 08/10/24 3:05 AM Result Value Ref Range WBC 14.17 (H) 4.15 - 10.55 10*3/uL RBC 2.84 (L) 3.74 - 5.22 10*6/uL NRBC % 0.0 0 /100 WBC Hgb 8.7 (L) 10.8 - 14.8 g/dL Hct 26.0 (L) 33.9 - 45.4 % MCV 91.5 77.8 - 97.5 fL MCH 30.6 24.9 - 32.6 pg MCHC 33.5 30.1 - 35.0 g/dL RDW - SD 57.1 (H) 37.6 - 49.1 fL Plt Count 142 (L) 191 - 422 10*3/uL MPV 11.5 9.0 - 12.6 fL Last BMP or CMP ResultLast Lab Result Basic Metabolic Panel Collection Time: 08/06/24 12:12 AM Result Value Ref Range Glucose Lvl 166 (H) 70 - 99 mg/dL BUN 13 9 - 23 mg/dL Creatinine Lvl 0.69 0.55 - 1.02 mg/dL Sodium Lvl 136 136 - 145 mEq/L Potassium Lvl 4.1 3.4 - 4.5 mEq/L Chloride Lvl 103 98 - 107 mEq/L CO2 Lvl 25.5 20.0 - 31.0 mEq/L Anion Gap 11.6 10.0 - 20.0 mEq/L Calcium Lvl 8.2 (L) 8.3 - 10.6 mg/dL eGFR 93 >60 mL/min/1.73m2 Culture ResultsNo results found for the last 90 days. Bowel Movements:No data recorded Ventilator SettingsPIP: 8 cm H2O Active Medicationsamiodarone, 0.5 mg/min, Last Rate: 0.5 mg/min (08/09/242119) amiodarone in D5W 500 mL, , Last Rate: 1 mg/min (08/06/241823) EPINEPHrine, , Last Rate: 3 mcg/min (08/06/241908) [Held by provider] EPINEPHrine, 3 mcg/min, Last Rate: Stopped (08/08/24 1400) heparin 12,500 Units in dextrose 5 % 500 mL infusion, , Last Rate: 12.1 mL/hr at 08/10/24 0115 heparin, 600 Units/hr, Last Rate: 600 Units/hr (08/09/242014) norepinephrine, , Last Rate: Stopped (08/06/241938) potassium chloride, , Last Rate: 20 mEq (08/06/24 1727) sodium chloride, , Last Rate: Stopped (08/09/24 0645) acetaminophen, 650 mg, Oral, q6h [Held by provider] amiodarone, 200 mg, Oral, BID aspirin, 81 mg, Oral, Daily atorvastatin, 40 mg, Oral, Daily Boost Glucose Control, 1 Container, Oral, BID with meals cefepime, 1 g, Intravenous, q8h gabapentin, 100 mg, Oral, q8h methocarbamol, 500 mg, Oral, q8h DARYL polyethylene glycol (PEG) 3350, 17 g, Oral, Daily sennosides, 1 tablet, Oral, BID thiamine, 100 mg, Nasogastric, Daily ticagrelor, 90 mg, Oral, q12h DARYL vancomycin, 750 mg, Intravenous, q12h PRN medications: amiodarone in D5W 500 mL, calcium gluconate, chlorhexidine, dextrose, dextrose, EPINEPHrine, glucagon, insulin lispro, magnesium sulfate, norepinephrine, phenol, potassium & sodium phosphates OR potassium & sodium phosphates, potassium chloride OR potassium chloride OR potassium chloride OR Potassium chloride, potassium chloride, sodium chloride, sodium chloride, sodium chloride, sodium chloride, sodium phosphates 45 mmol in sodium chloride 0.9 % 100 mL IVPB, traMADol, Pharmacy to dose vancomycin AND Vancomycin Pharmacy Dosing [1]Past Medical History: Diagnosis Date Diabetes mellitus (HCC) PATIENT CLAIMED THAT SHE HAS DIABETES [2] History reviewed. No pertinent surgical history. [3] Family History: Problem Relation Name Age of Onset Diabetes Mother No Known Problems Father [4] No Known Allergies Cosigned by Dino Domínguez MD at 08/22/2024 12:28 AM CDT * Haylee Meneses NP - 08/10/2024 2:55 AM CDT [facility] Query Clarification Progress Note As related to the inpatient hospital stay starting on 07/31/2024, 2:39 AM. What is the clinical significance, if any, of the noted hemoglobin and hematocrit findings? PROVIDER RESPONSE TEXT: Acute post-op blood loss anemia Query Created By : Laura Cross, 08/07/2024, 9:07 AM * Francia Tariq OT - 08/09/2024 1:34 PM CDT Treatment Session Note Patient Name: Nichelle Hampton Today's Date: 08/09/2024 Preferred Language: Italian Assessment & Plan Assessment: Pt is demonstrating good tolerance for EOB/OOB FA with VS and flows stable throughout while on nc and on Impella at P4. Pt remains mostly limited by decreased FA tolerance and strength. Pt currently requires Mod A for bed mobility and Min A for transfers. Pt will continue to benefit from skilled OT services to maximize functional independence and safety. OT Assessment Results: Impaired ADL status, Impaired endurance, Impaired functional mobility, Impaired IADLs Prognosis: Good Precautions: UE Weight Bearing Status: (NWB RUE) Medical Precautions: (RUE impella; spinal; TLSO when OOB) Post-Surgical Precautions: RUE impella Braces Applied: TLSO Plan: Treatment Plan/Goals Established with Patient/Caregiver: Yes Treatment Interventions: ADL retraining, Continued evaluation, Endurance training, Functional transfer training, UE strengthening/ROM OT Plan: Skilled OT OT Frequency: 3-5 times per week until discharge OT Duration: Discharge Subjective Objective Pt presented in semi-livingston's, agreeable to OT tx. ALEJO Hsu and CS present throughout treatment. Lines and room extensively prepped. Pt now on 4L nc. Pt states that she had been and was cleared to don TLSO while EOB. Pt transferred EOB with strict spinal precautions Mod A. TLSO adjusted for proper fit and donned on pt (total A). Pt washed face setup A. Pt stood and pivoted to recliner chair with min A KNUCKLER. Pt assisted to position for comfort while in chair. Pt left seated in recliner, VS and flows stable, RN present, all needs met. Vital Signs: VS pre: HR 66, 00/45 (64) SPO2 97%, SVO2 65% VS post:HR 65, 103/56 (71), Spo2 97%, SVO2 64% Impella pre: P4, 2.7 LPM, 106/51 (69) Impella Post: P4, 2.6 LPM, 114/49 (69), Self Care (ADL): Self Care/Home Management (ADLs) Time Entry: 10 Grooming Assistance: Setup/clean-up assistance LE Dressing Assistance: Substantial/Max assistance Mobility/Transfers: Bed Mobility Bed Mobility Bed Mobility: Yes Bed Mobility 1 Level of Assistance 1: Partial/Mod assistance Bed Mobility Comments 1: Mod Ax2 Bed Mobility To/From: Supine to sit on EOB Transfer Transfers Transfer: Yes Transfer 1 Technique 1: Stand pivot Level of Assistance 1: Partial/Mod assistance Trials/Comments 1: Min A KNUCKLER Transfer To/From: Chair, Bed Treatment Self-Care: Self Care/Home Management (ADLs) Time Entry: 10 Grooming Assistance: Setup/clean-up assistance Bed Mobility: Bed Mobility Bed Mobility: Yes Bed Mobility 1 Level of Assistance 1: Partial/Mod assistance Bed Mobility Comments 1: Mod Ax2 Bed Mobility To/From: Supine to sit on EOB Transfers: Transfers Transfer: Yes Transfer 1 Technique 1: Stand pivot Level of Assistance 1: Partial/Mod assistance Trials/Comments 1: Min A KNUCKLER Transfer To/From: Chair, Bed Therapeutic Activity Therapeutic Activity Time Entry: 30 Therapeutic Activity 1: TLSO edu Therapeutic Activity 2: transfer Mobility Highest Level of Mobility Performed (JH-HLM): Transferred to chair/commode Goals: Encounter Goals Encounter Goals (Active) Pt will perform OOB ADL routine with no rest breaks required for increased FA tolerance Start: 08/08/24 Expected End: 09/05/24 Pt will perform functional transfers Mod I Start: 08/08/24 Expected End: 09/05/24 Pt will perform toileting Mod I Start: 08/08/24 Expected End: 09/05/24 Treatment Note: If this is the last documented treatment, then it will signify discharge from acute care prior to discharge from the therapy service and will serve as the discharge summary. Francia Tariq OT * Michael Jeffries DO - 08/09/2024 1:21 PM CDT Hemotherapy Progress Note Patient ID: Nichelle Hampton (69 y.o. female) Chief Complaint: No chief complaint on file. Admission Date: 07/31/2024 Referring Physician/Service: F ICU Reason for Consult: New Impella HPI: 69 yo female w/ PMH including HTN, DM, CAD and tobacco abuse who was transferred to [facility] for revascularization after LHC at [facility] revealed multivessel disease with severe L main disease. Other relevant events at OSH included cellulitis 2/2 to spider bite and hypoxic respiratory failure requiring bipap, afib RVR and possible new diagnosis of CHF (EF 45-50%). Went for PCI x4 on 08/06 c/b PEA arrest s/p ECMO s/p Impella 5.5 placement. SUBJECTIVE: On Impella support On Impella heparin purge and IV heparin drip at 400 increased to 500u/hr On ASA and Brilinta No signs of bleeding. OBJECTIVE: EXAM BP 102/62 | Pulse 59 | Temp 37.1 ?C (98.8 ?F) | Resp (!) 38 | Ht 1.61 m (5' 3.39") | Wt 62.6 kg (138 lb 0.1 oz) | SpO2 97% | BMI 24.15 kg/m? Gen: Comfortable, awake and alert Neuro: No focal deficits appreciated HEENT: PERRL; EOMI; No scleral icterus CV/Pulses: RRR; 2+ peripheral pulses Pulm: on HFNC symmetric chest rise GI: Soft; NTND : Deferred MS: Tone intact Skin/Ext: No changes in lesions; 1+ pitting edema LABS: Lab Results Component Value Date Albumin Lvl 2.7 (L) 08/09/2024 Albumin Lvl 3.1 (L) 08/08/2024 Protein 5.0 (L) 08/09/2024 Protein 5.2 (L) 08/08/2024 ALT 52 (H) 08/09/2024 ALT 69 (H) 08/08/2024 AST 45 (H) 08/09/2024 AST 63 (H) 08/08/2024 Bilirubin Total 0.84 08/09/2024 Bilirubin Total 0.78 08/08/2024 WBC 16.84 (H) 08/09/2024 WBC 16.69 (H) 08/08/2024 POC V Hgb Tot 10.1 (L) 08/09/2024 Hgb 9.9 (L) 08/09/2024 Plt Count 163 (L) 08/09/2024 Plt Count 165 (L) 08/08/2024 INR 1.21 (H) 08/09/2024 INR 1.13 08/08/2024 PTT 42.3 (H) 08/09/2024 PTT 44.5 (H) 08/08/2024 LDH Tot 460 (H) 08/09/2024 LDH Tot 421 (H) 08/08/2024 Hgb, Plasma 10 08/09/2024 Hgb, Plasma 10 08/08/2024 Results from last 7 days Lab Units 08/09/24 0405 08/08/24 2130 08/08/24 0413 INR 1.21* 1.13 1.16* PTT Seconds 42.3* 44.5* 34.9 IMAGING: Images were reviewed. ASSESSMENT AND PLAN: 69 yo female w/ PMH including HTN, DM, CAD and tobacco abuse who was transferred to [facility] for revascularization after LHC at [facility] revealed multivessel disease with severe L main disease. Other relevant events at OSH included cellulitis 2/2 to spider bite and hypoxic respiratory failure requiring bipap, afib RVR and possible new diagnosis of CHF (EF 45-50%). Went for PCI x4 to LM-LAD c/b PEA arrest with 15 minutes of CPR and ECMO cannulation, finding of acute stent thrombosis s/p PTCA > with subsequent Impella 5.5 placement and decannulation of ECMO on 08/06/2024. Anemia/RBC:H/H Stable, required 1u pRBCs 08/04, 08/06 in OR, 2 units pRBC 08/07 Anemia cause(s): s/p impella - SAGE output acceptable Anemia studies: normocytic, F/U Iron studies Blood Type: O Pos ; Antibody screen: negative; Antibody History: unknown Transfuse if Hb < 7/8 mmHg/dL. Platelet:Count decreased due to Impella placement. Stable today Antiplatelet medication: Asa 81, Brillinta 90 first dose 08/07 Transfuse if Platelet count < 20K or <50K if actively bleeding. Coagulation:PT/INR mildly elevated but acceptable PTT elevated due to Heparin Fibrinogen acceptable, transfuse cryoprecipitate for fibrinogen <150 mg/dL Anticoagulation for Impella 5.5:Impella heparin purge IV heparin drip at 500 u/hr. F/U DIC screen Monitor for bleeding. * Kandy Tyler NP - 08/09/2024 11:19 AM CDT ORS Spine Brief Note CT of cervical of cervical and lumbar spine completed on 08/02/2024 reviewed and found to be appropriate for non-operative management. - Spine precautions: TLSO brace when out of bed - Activity as tolerated - Ok for DVT prophylaxis per primary team. - Pending ORS Spine Surgeries: None. Ok for discharge once cleared by primary team. Please follow up with ASHLEIGH Flanagan in 2 weeks. Please call [phone] to make an appointment. Please page the ORS Spine resident through the band aid machine operator for questions or call [phone] Tuesday - Tuesday between 6 am and 4 pm. Please call [phone]) for emergencies. Kandy Tyler NP * Shahzad Rg PharmD - 08/09/2024 10:19 AM CDT Clinician Notes: Continue current dose of 750 mg Q12H Next vancomycin level on 08/11 Recommended Dose: 750 mg IV over 1 hour every 12 hours for 2 days Next Dose At: 11:01 on Aug 09 2024 Dosing Interval: 12 hours Infusion Length: 1 hours Dose Valid For: 2 days only Dose Recommendation Method: Individualized model Target Outcome: AUC24: 450 mcg.h/mL Predicted Outcome: AUC24: 443.22 mcg.h/mL Predicted Peak: 24.8 mcg/mL Predicted Trough: 13.3 mcg/mL Predicted AUC24: 443.2 mcg.h/mL Predicted AUC12: 221.6 mcg.h/mL Most Recent Dose: 750 mg over 1 hours at 23:01 on Aug 08 2024 Most Recent SCr: 0.55 mg/dL at 00:08 on Aug 09 2024 Most Recent Blood Concentration: 18.4 mcg/mL at 22:54 on Aug 07 2024 Peak: 25.5 mcg/mL Trough: 13.7 mcg/mL AUC24: 458 mcg.h/mL AUC12: 229 mcg.h/mL * Dino Domínguez MD - 08/09/2024 9:56 AM CDT ID PULMONARY CRITICAL CARE MEDICINE - NoteType: PROGRESS NOTE Patient ID: @[email or web address]@ is a 69 y.o. female. Chief Complaint: No chief complaint on file. Admission date: 07/31/2024 Referring Physician: Leila Lozano NP Reason for Consult: Reason For Consult: Critical care management Interval events Was not started on bipap overnight On NC now TF ar 50, amio and heparin gtt Impella at p-4 afebrile CVP ASSESSMENT/PLAN: Problem List: Principal Problem: Triple vessel coronary artery disease Active Problems: Acute non-ST elevation myocardial infarction (NSTEMI) (CMS/HCC) (HCC) Tachy-sen syndrome (CMS/HCC) (HCC) Tobacco use disorder Peripheral vascular disease (HCC) Normocytic anemia Compression fracture of T10 vertebra (HCC) Cardiac arrest (HCC) Shock (CMS/HCC) (HCC) New onset of congestive heart failure (CMS/HCC) (HCC) Atrial fibrillation with RVR (CMS/HCC) (HCC) Prediabetes Coronary artery disease Diabetes mellitus (HCC) Problem List[1] Principal Problem: Triple vessel coronary artery disease Active Problems: Acute non-ST elevation myocardial infarction (NSTEMI) (CMS/HCC) (HCC) Tachy-sen syndrome (CMS/HCC) (HCC) Tobacco use disorder Peripheral vascular disease (HCC) Normocytic anemia Acute hypoxic respiratory failure (HCC) New onset of congestive heart failure (CMS/HCC) (HCC) Atrial fibrillation with RVR (CMS/HCC) (HCC) Prediabetes Diabetes mellitus (HCC) #Multivessel CAD with left main dx. #acute hypoxemic respiratory failure #Pulmonary edema #preop pulmonary edema #CHF #cellulitis #afib RVR #dm2 #htn #tobacco use Assessment: 69 yo female w/ PMH including HTN, DM, CAD and tobacco abuse who was transferred to [facility] for revascularization after LHC at [facility] revealed multivessel disease with severe L main disease. Other relevant events at OSH included cellulitis 2/2 to spider bite and hypoxic respiratory failure requiring bipap, afib RVR and possible new diagnosis of CHF (EF 45-50%). Neuro/Psych: -Delirium precautions - start pain meds: tylenol and robaxin, gabapentin CV: - LHC (07/30/24) notable for severe 80% LM disease, and severe multivessel disease. She declined CABG, plan is for high risk PCI - Cont. Asa and atorvastatin - MARQUES, mild global hypokinesis, reduced EF 45-50% and DCCV (07/30/24). - Amiodarone on hold given tachy sen syndrom, cont heparin gtt for afib - s/p impella 5.5, bridge to recovery. Tolerating weaning - consider diuresis Resp: - wean supplemental oxygen, wean as tolerated to maintain spo2 >92% - CT chest (07/31)- Small bilateral pleural effusions, greater on the left. Dependent consolidative opacities with air bronchogram and surrounding groundglass in the bilateral lower lobes. Mild diffuse groundglass is associated with interlobular septal thickening. Scattered bilateral subsegmental atelectasis in both lungs. Minimal upper lobe predominant centrilobular emphysema. - PFT(07/31) - Restrictive ventilatory defect likely in setting of pulmonary edema and opacities seen on CT chest. - CXR with pulmonary congestion and atlectasis - bipap at night for volume expansion - IS and VEP GI/Nutrition:- swallow test today - increase LFT due to cardiac arrest -0 continue TF Renal/Electrolytes:- UOP is good, - PRN bumex today - Replace electrolytes per unit protocol - Monitor I/Os Endo: Lab ResultsComponent Value Date Hgb A1C 6.45 (H) 07/31/2024 TSH 1.224 07/28/2024 - BG goal 120 - 180, SSI as needed - SSI Heme/Onc:-monitor For bleeding and coagulopathies - Transfuse to maintain hgb >7 - impella heparin gtt - low fixed dose heparin ID:- start broad spectrum abx given WBC 08/07 - MRSA swab - pending final resp cultures Msk/Skin/Deconditioned:- Consult PT/OT. - Continue wound care and sacral decubitus prevention. To Do- impella weaning - PT/OT - swallow test - bipap at night - ICU quality> DVT prophylaxis: heparin gtt, SCD > PPI prophylaxis: start PPI > Nutrition/glucose control: SSI, BG 120-180 > Line and tubes: continue lines while attempting impelal weaning > Perkins catheter: remove perkins > Sedation: off > Date of intubation: 08/06 > Restraints: placed This patient is critically ill. I spent 40 minutes of critical care time with this patient, not including procedure time Dino Domínguez MDUTH Pulmonary and Critical Care Medicine MSO# [id number] HISTORY OF PRESENT ILLNESS:NO Hampton is a 69 y.o. female with past medical history of hypertension, diabetes mellitus (on no meds), reported history of coronary artery disease and tobacco use, was transferred from [facility] after LHC revealed severe left main disease and multivessel disease. She was originally admitted for hand cellulitis after a spider bite, but during that hospital stay she had hypoxic respiratory failure requiring BiPAP, NSTEMI, possibly newly diagnosed CHF (EF 45-50%), and Afib w/ RVR. She underwent a MARQUES w/ cardioversion. LHC and RHC on 07/31/23 which showed normal filling pressures, LHC which showed 80% mid to distal LM lesion extending into the ostium of LAD, 60-70% mid LAD, diffuse LCx and OM disease, and 70-80% proximal to mid RCA disease. She was transferred to [facility] for revascularizaton. No data found. Enter data into the [facility] Mental Health Specialist navigator to see it here. Assessment & PlanAssessment & Plan Subjective INTERVAL EVENTS: [_]Temp (24hrs), Av.2 ?C (99 ?F), Min:36.7 ?C (98.1 ?F), Max:37.5 ?C (99.5 ?F) No data recordedI/O last 3 completed shifts: In: 4417.5 (70.6 mL/kg) [I.V.:1767.5 (28.2 mL/kg); Blood:900; Other:360; IV Piggyback:850] Out: 2600 (41.5 mL/kg) [Urine:2590 (1.1 mL/kg/hr); Drains:10] Weight: 62.6 kg FiO2 (%): 35 % No data found. No data found. PAST MEDICAL HISTORY:Medical History[2] PAST SURGICAL HISTORY:Surgical History[3] FAMILY HISTORY:Family History[4] SOCIAL HISTORY:Social History Socioeconomic HistoryMarital status: Spouse name: Not on file Number of children: Not on file Years of education: Not on file Highest education level: Not on file Occupational History Not on file Tobacco Use Smoking status: Former Current packs/day: 0.00 Types: Cigarettes Quit date: 1967 Years since quittin.2 Smokeless tobacco: Current Tobacco comments: PATIENT VERBALIZED "WELL NOW THAT I AM IN THE HOSPITAL, I CAN'T REALLY SMOKE Vaping Use Vaping status: Not on file Substance and Sexual Activity Alcohol use: Yes Alcohol/week: 6.0 standard drinks of alcohol Types: 6 Cans of beer per week Comment: [place] EVERYOTHER WEEKEND Drug use: Never Sexual activity: Not Currently Other Topics Concern Not on file Social History Narrative Not on file Social Drivers of Health Financial Resource Strain: Not on fileFood Insecurity: No Food Insecurity (07/31/2024) Hunger Vital Sign Worried About Running Out of Food in the Last Year: Never true Ran Out of Food in the Last Year: Never true Transportation Needs: No Transportation Needs (07/31/2024) PRAPARE - Transportation Lack of Transportation (Medical): No Lack of Transportation (Non-Medical): No Physical Activity: Not on file Stress: Not on file Social Connections: Not on file Intimate Partner Violence: Not At Risk (07/31/2024) Humiliation, Afraid, Rape, and Kick questionnaire Fear of Current or Ex-Partner: No Emotionally Abused: No Physically Abused: No Sexually Abused: No Housing Stability: Low Risk (07/31/2024) Housing Stability Vital Sign Unable to Pay for Housing in the Last Year: No Number of Times Moved in the Last Year: 0 Homeless in the Last Year: No ALLERGIES: Allergies[5] HOME MEDICATIONS:Medication Documentation Review Audit Reviewed by Aracelis Chavez RN (Registered Nurse) on 08/09/24 at 0722 Medication Order Taking? Sig Documenting Provider Last Dose Statusevolocumab (Repatha SureClick) 140 MG/ML Subcutaneous Solution Auto-injector [id number] Inject 1 mL under the skin every 14 days. Leila Lozano, HAILEY Active acetaminophen, 650 mg, Oral, q6h [Held by provider] amiodarone, 200 mg, Oral, BID aspirin, 81 mg, Oral, Daily atorvastatin, 40 mg, Oral, Daily cefepime, 1 g, Intravenous, q8h Enteral Free water Flush, 30 mL, Nasogastric, q4h gabapentin, 100 mg, Oral, q8h methocarbamol, 500 mg, Oral, q8h DARYL polyethylene glycol (PEG) 3350, 17 g, Oral, Daily sennosides, 1 tablet, Oral, BID sodium bicarbonate, 50 mEq, Intravenous, Once thiamine, 100 mg, Nasogastric, Daily ticagrelor, 90 mg, Oral, q12h DARYL vancomycin, 750 mg, Intravenous, q12h amiodarone, 1 mg/min, Last Rate: 1 mg/min (08/09/24 0800)amiodarone in D5W 500 mL, , Last Rate: 1 mg/min (08/06/24 1824) EPINEPHrine, , Last Rate: 3 mcg/min (08/06/24 190) [Held by provider] EPINEPHrine, 3 mcg/min, Last Rate: Stopped (08/08/24 1400) heparin 12,500 Units in dextrose 5 % 500 mL infusion, , Last Rate: 12.8 mL/hr at 08/09/24 0800 heparin, 400 Units/hr, Last Rate: 400 Units/hr (08/09/24 0800) norepinephrine, , Last Rate: Stopped (08/06/24 193) peptamen AF, , Last Rate: 65 mL/hr at 08/09/24 0800 potassium chloride, , Last Rate: 20 mEq (08/06/24 1727) sodium chloride, , Last Rate: 999 mL/hr at 08/09/24 0800 PRN medications: amiodarone in D5W 500 mL, calcium gluconate, chlorhexidine, dextrose, dextrose, EPINEPHrine, glucagon, insulin lispro, magnesium sulfate, norepinephrine, phenol, potassium & sodium phosphates OR potassium & sodium phosphates, potassium chloride OR potassium chloride OR potassium chloride OR Potassium chloride, potassium chloride, sodium chloride, sodium chloride, sodium chloride, sodium chloride, sodium chloride, sodium phosphates 45 mmol in sodium chloride 0.9 % 100 mL IVPB, traMADol, Pharmacy to dose vancomycin AND Vancomycin Pharmacy Dosing PHYSICAL EXAM:Gen: intubated, sedated Neuro: No focal deficits appreciated HEENT: PERRL; EOMI; No scleral icterus CV/Pulses: PE_CV: RRR; 2+ peripheral pulses Pulm: Decreased breath sounds at the bases; No wheezing GI: BS (+); Soft; NTND : Deferred MS: Tone intact Skin/Ext: No changes in lesions; 1+ pitting edema LABS:Pertinent Labs : Lab Results Component Value Date WBC 16.84 (H) 08/09/2024 POC V Hgb Tot 10.1 (L) 08/09/2024 Hgb 9.9 (L) 08/09/2024 POC A Hct (calc) 30.0 (L) 08/09/2024 POC V Hct (calc) 30.0 (L) 08/09/2024 Hct 29.8 (L) 08/09/2024 Plt Count 163 (L) 08/09/2024 Lab ResultsComponent Value Date POC V Na 133 (L) 08/09/2024 POC A Na 130 (L) 08/09/2024 POC V K 4.0 08/09/2024 POC A K 4.2 08/09/2024 POC V Cl 108 08/09/2024 POC Chloride 107 08/09/2024 CO2 Lvl 21.9 08/09/2024 BUN 15 08/09/2024 Creatinine Lvl 0.55 08/09/2024 POC V Glu 148 (H) 08/09/2024 POC A Glu 249 (H) 08/09/2024 Lab ResultsComponent Value Date Calcium Lvl 7.5 (L) 08/09/2024 Magnesium 2.06 08/09/2024 Phosphorus Lvl 2.0 (L) 08/09/2024 Lab ResultsComponent Value Date AST 45 (H) 08/09/2024 ALT 52 (H) 08/09/2024 Alkaline Phosphatase 97 08/09/2024 Lab ResultsComponent Value Date PTT 42.3 (H) 08/09/2024 Prothrombin Time (PT) 15.5 (H) 08/09/2024 INR 1.21 (H) 08/09/2024 No results found for: "COLORU", "CLARITYU", "SPECGRAV", "PHUR", "PROTUR", "GLUCOSEU", "KETONESU", "NITRITEU", "LEUKOCYTESUR", "BILIRUBINUR", "UROBILINOGEN" No results found for: "CK", "TROPONINT", "TROPONINI", "BNP" IMAGING:@IMAGES@ EKG:Encounter Date: 07/31/24 ECG 12 lead Result Value Ventricular Rate 66 Atrial Rate 66 WY Interval 132 QRS Duration 70 QT/QTc 418 QTc Calculation 438 P-Dayton 24 R-Dayton -27 T-Dayton 32 Impression SINUS RHYTHM NORMAL ECG WHEN COMPARED WITH ECG OF 30-JUL-2024 14:12, SINUS RHYTHM HAS REPLACED ATRIAL FIBRILLATION RATE HAS DECREASED CRITERIA FOR ANTERIOR INFARCTION NO LONGER PRESENT Confirmed by Jaiden Liriano ([id number]) on 07/31/2024 5:22:03 PM ECHO: Transthoracic echo (TTE) complete 07/31/2024 Interpretation SummaryLeft Ventricle: Left ventricle size is normal. Findings consistent with eccentric hypertrophy. Mild global hypokinesis present. Mildly reduced systolic function with an estimated EF of 45 - 50%. Grade I diastolic dysfunction of the left ventricle. Apical thrombus is not present verified by the use of contrast. Right Ventricle: Right ventricle size is normal. Normal systolic function in the right ventricle. TAPSE is 19 mm. Pericardium: No pericardial effusion present. Transesophageal echo (MARQUES) with possible cardioversion 07/30/2024 Interpretation SummaryLeft Ventricle: Left ventricle size is normal. Mild global hypokinesis present. Reduced systolic function with an estimated EF of 45 - 50%. Right Ventricle: Right ventricle size is normal. Normal systolic function in the right ventricle. Left Atrium: Normal sized left atrial appendage. No thrombus in left atrium present. Transthoracic echo (TTE) complete 07/28/2024 Interpretation SummaryPatient is in atrial fibrillation with RVR at the time of this study. LV systolic function assessment is suboptimal. Left Ventricle: Left ventricle size is normal. Mild global hypokinesis present. Mildly reduced systolic function with an estimated EF of 45 - 50%. Right Ventricle: Right ventricle size is normal. Normal systolic function in the right ventricle. Left Atrium: Left atrium is moderately dilated. Mitral Valve: Moderate mitral regurgitation present. Tricuspid Valve: Mild to moderate tricuspid regurgitation present. Mild to moderate pulmonary hypertension present. RVSP is 46.00 mmHg. Pericardium: Trivial pericardial effusion present. Left pleural effusion present. [1] Patient Active Problem List Diagnosis New onset of congestive heart failure (CMS/HCC) (HCC) Cellulitis Atrial fibrillation with RVR (CMS/HCC) (HCC) Prediabetes Elevated troponin Hypertension Tobacco use Coronary artery disease Hyponatremia Hyperglycemia Pulmonary edema cardiac cause (CMS/HCC) (HCC) Triple vessel coronary artery disease Acute non-ST elevation myocardial infarction (NSTEMI) (CMS/HCC) (HCC) Tachy-sen syndrome (CMS/HCC) (HCC) Tobacco use disorder Peripheral vascular disease (HCC) Normocytic anemia Diabetes mellitus (HCC) Compression fracture of T10 vertebra (HCC) Cardiac arrest (HCC) Shock (CMS/HCC) (HCC) [2] Past Medical History: Diagnosis Date Diabetes mellitus (HCC) PATIENT CLAIMED THAT SHE HAS DIABETES [3] History reviewed. No pertinent surgical history. [4] Family History: Problem Relation Name Age of Onset Diabetes Mother No Known Problems Father [5] No Known Allergies * Navdeep Pelletier, PT - 08/09/2024 9:50 AM CDT Physical Therapy Evaluation and Treatment Note [facility] Patient Name: Nichelle Hampton Today's Date: 08/10/2024 Preferred Language: Italian Assessment & Plan Assessment: Ms. Nichelle Hampton is a 69 y.o. year old female who was admitted to [facility] for respiratory failure and sepsis, is s/p DESx4 on 08/06 with subsequent PEA arrest and Impella 5.5 placement. On PT evaluation the patient presents with decreased functional mobility independence as compared to the patient's stated baseline. The patient will benefit from skilled PT services while in-house. Physical Therapy service will continue to follow the patient to progress mobility towards the stated goals below. Prognosis: Good Barriers to Discharge: Medical diagnosis, Severity of deficits Medical Staff Made Aware: Yes Strengths: Ability to acquire knowledge, Insight into deficits Plan:Treatment Plan/Goals Established with Patient/Caregiver: Yes Treatment/Interventions: Bed mobility training, Caregiver training, Functional activities, Gait training, Neuromuscular re-education, Patient education, Therapeutic exercises, Transfer training PT Plan: Skilled PT PT Frequency: 3-4 times per week until discharge Subjective Current Problem / History of Present Illness: Ms. Nichelle Hampton is a 69 y.o. female who presenting to [facility] as a transfer from an outside hospital for persistent hypoxic respiratory failure requiring BiPAP as well as elevated troponin. As per the history patient was admitted on July 24 at the outside hospital for sepsis in the setting of left hand cellulitis for which she was on antibiotics. During her hospital stay, she developed acute hypoxic respiratory failure in the setting of possibly newly diagnosed CHF, CTA chest was performed revealed classic signs of pulmonary congestion without evidence of PE. Labs were notable for elevated BNP. Her heart rate was noted to be tachycardic, consistent with A-fib with RVR. She received a bolus of amiodarone leading to improvement of heart rate, and was subsequently started on therapeutic Lovenox for anticoagulation. Her troponin levels were elevated to 1900>> 1500. She was placed on BiPAP and started on Lasix, however course was complicated by hypotension, leading to discontinuation of Lasix. Pt was subsequently transferred to [facility] 07/31 for HLOC, is s/p [facility] 08/06 with DESx4, which was complicated by PEA arrest with CPR ~15 min before cannulated for VA ECMO. Pt had Impella 5.5 placed on same date per Dr. Reynaga. Of note, pt was seen per Orthopedics for reports of ground level fall and they prescribed TLSO for pt when OOB. Pt now presents for PT evaluation. PMH: hypertension, diabetes mellitus, reported history of coronary arterydisease and tobacco use Pain:Pain Assessment: 0-10 Pain Score: 0 No change at end of session Home Living:Type of Home: House Lives With: Son Home Layout: One level Prior Level of Function:Level of Nance: Other (Comment) (indep, no device) Prior Function Comments: reports 2 falls in last 6 months ObjectiveGeneral Visit Information: Pt seen in AM for consultation with OT, RN, session continued in PM. ALEJO Hsu present, pt agreed to mobility. She sat up to L EOB, donned TLSO, stood and amb in room x2 bouts with seated break. She then doffed TLSO and returned supine per her request. She was made comfortable and was left in care of RN. RN verified cannula position at 43 cm. Vital Signs:Patient Vitals for the past 24 hrs: Pulse Resp SpO2 08/09/24 1448 62 20 98 % 08/09/24 1445 62 (!) 29 98 % 08/09/24 1430 60 (!) 26 100 % 08/09/24 1415 59 (!) 24 100 % 08/09/24 1400 61 16 98 % 08/09/24 1345 62 (!) 25 98 % 08/09/24 1330 57 (!) 26 98 % 08/09/24 1315 56 (!) 27 97 % 08/09/24 1300 59 (!) 38 97 % 08/09/24 1245 58 18 98 % 08/09/24 1230 57 (!) 33 90 % 08/09/24 1215 58 (!) 39 100 % 08/09/24 1200 58 (!) 30 98 % 08/09/24 1145 61 20 99 % 08/09/24 1130 62 (!) 34 100 % 08/09/24 1115 57 (!) 29 99 % 08/09/24 1100 58 (!) 23 99 % 08/09/24 1045 85 (!) 38 96 % 08/09/24 1030 59 18 98 % Precautions:UE Weight Bearing Status: FWB LUE; TDWB LUE (Impella VAD) LE Weight Bearing Status: FWB Medical Precautions: must wear TLSO when OOB Braces Applied: TLSO Cognition:Overall Cognitive Status: Within Functional Limits Behavior/Cognition: Alert, Cooperative Orientation Level: Oriented X4 General Assessments:Activity Tolerance Activity Tolerance Endurance: Tolerates 10 - 20 min exercise with multiple rests Early Mobility/Exercise Safety Screen: Proceed with mobilization - No exclusion criteria met Sensation SensationLight Touch: RLE Intact, LLE Intact, LUE Intact, RUE Intact Coordination CoordinationMovements are Fluid and Coordinated: Yes Functional Assessments:Bed Mobility Bed Mobility 1: Level of Assistance 1: Partial/Mod assistance Bed Mobility To/From: Roll left/right, Supine to sit on EOB Bed Mobility 2:Level of Assistance 2: Partial/Mod assistance Bed Mobility To/From: Sitting EOB to supine Transfers Transfers 1:Level of Assistance 1: Supervision/touching assistance Transfer To/From: [id number] Assistive Devices And Adaptive Equipments: No device Gait Gait Training Activity 1: Distance (enter in feet): 14 Assistive Devices And Adaptive Equipments: No device (BUE KNUCKLER) Level of Assistance 1: Partial/Mod assistance Gait Training Activity 2:Distance (enter in feet): 16 Assistive Devices And Adaptive Equipments: No device Level of Assistance 2: Partial/Mod assistance Extremity Assessments:Right Lower Extremity RLE Assessment RLE Assessment: Within Functional Limits Left Lower Extremity LLE AssessmentLLE Assessment: Within Functional Limits Right Upper Extremity RUE AssessmentRUE Assessment: Within Functional Limits (strength not tested beyond VAD precautions) Left Upper Extremity LUE AssessmentLUE Assessment: Within Functional Limits Activity Tolerance:Endurance: Tolerates 10 - 20 min exercise with multiple rests Early Mobility/Exercise Safety Screen: Proceed with mobilization - No exclusion criteria met CognitionOverall Cognitive Status: Within Functional Limits Behavior/Cognition: Alert, Cooperative Orientation Level: Oriented X4 TreatmentTherapeutic activity: Therapeutic Activity Therapeutic Activity Time Entry: 16 Therapeutic Activity 1: Education - PT POC; safety AM-PAC Basic Mobility:Turning in bed without bedrails: None Lying on back to sitting on edge of flat bed: A Little Bed to chair: A Little Standing up from chair: A Little Walk in room: A Little Climbing 3-5 stairs: A Little Mobility Inpatient Raw Score: 19 JH-HLM Goal: 6 Walked 25 feet or more (i.e. walked outside of room) Patient Education:Education Documentation Precautions, taught by Navdeep Pelletier PT at 08/09/2024 2:44 PM. Learner: Patient Readiness: Acceptance Method: Explanation Response: Verbalizes Understanding, Needs Reinforcement Mobility, taught by Navdeep Pelletier PT at 08/09/2024 2:44 PM.Learner: Patient Readiness: Acceptance Method: Explanation Response: Verbalizes Understanding, Needs Reinforcement Physical Therapy Plan of Care, taught by Navdeep Pelletier PT at 08/09/2024 2:44 PM. Learner: Patient Readiness: Acceptance Method: Explanation Response: Verbalizes Understanding, Needs Reinforcement Education CommentsNo comments found. Goal: Encounter Goals Encounter Goals (Active) Patient will progress bed mobility to GG Code 6 - Independent, using without adaptive aid, by discharge. Start: 08/10/24 Expected End: 09/21/24 The patient will progress transfers to GG Code 6 - Independent using no device vs LRAD, by discharge. Start: 08/10/24 Expected End: 09/21/24 The patient will ambulate 150+ feet with no device vs LRAD and GG Code 6 - Independent, by discharge. Start: 08/10/24 Expected End: 09/21/24 Treatment Note: If this is the last documented treatment, then it will signify discharge from acute care prior to discharge from the therapy service and will serve as the discharge summary. Navdeep Pelletier PT * Orestes Agrawal MD - 08/09/2024 8:00 AM CDT [facility] ICU PROGRESS NOTE Subjective Overnight received 2U PRBC with appropriate response. I/O: Net positive +[phone] Diuresis: None Drips: amiodarone, heparin Mechanical Support: Impella 5.5 [place] Numbers: 8, 28/6, At P4 large V waves up to 40 mmHg, improved to 20 mmHg at P8 Latest LHC 08/06/2024: Successful LM-LAD PCI with SARAH x4 complicated by PEA arrest with CPR ~15 min before cannulated for VA ECMO; hemodynamic instability and PEA arrest thought to be secondary to high LVEDP/stunning during the case. Acute stent thrombosis secondary to stasis/no pulsatility on repeat angiography after cardiac arrest; successfully treated with PTCA. Occlusive R FIELD MARKETING TEAM LEADER (19Fr) cannula and L FIELD MARKETING TEAM LEADER (9Fr) sheath. DIESEL TRAILER MECHANIC of R SFA not amenable to antegrade sheath. Latest RHC 07/30/2024: RA: Mean 4 mmHg RV 35/0 with RVEDP 5 mmHg PA 36/12 with mean of 22 mmHg PCWP estimated 12-14 mmHg Tucker: CO 3.4 L/min, CI 2.2 L/m2/min TTE 08/07/24: EF 35-40%, normal RV size and function, Impella 5.5 cm in LV cavity, moderate MR, trivial pericardial effusion. TTE 07/31/2024: Left Ventricle: Left ventricle size is normal. Findings consistent with eccentric hypertrophy. Mild global hypokinesis present. Mildly reduced systolic function with an estimated EF of 45 - 50%. Grade I diastolic dysfunction of the left ventricle. Apical thrombus is not present verified by the use of contrast. Right Ventricle: Right ventricle size is normal. Normal systolic function in the right ventricle. TAPSE is 19 mm. Pericardium: No pericardial effusion present. Duplex Arterial Ultrasound 08/06 IMPRESSION: 1. Right mid and distal SFA and proximal popliteal artery occlusion. Post occlusion reconstitution distal popliteal, posterior tibial, anterior tibial and dorsalis pedis arteries with low resistance low flow waveform. 2. Left mid and distal SFA occlusion with low resistance low flow with reconstitution within the proximal and distal popliteal, and anterior and posterior tibial and dorsalis pedis arteries. Objective Last Recorded Vitals Blood pressure 102/62, pulse 66, temperature 37.2 ?C (99 ?F), resp. rate (!) 27, height 1.61 m (5' 3.39"), weight 62.6 kg (138 lb 0.1 oz), SpO2 93%. Physical Exam:GEN: lying down comfortably, not in acute distress HEENT: normal conjuctivae, anicteric sclera neck: no JVD , supple, normal ROM CV: RRR s1s2 no mrg, pulse +2 resp: CTAB, no wheezing/crackles GI: soft, non tender MSK: no joint swelling or pain to palpation extremities: no edema, clubbing or cyanosis Neuro: AOx3, moving all extremities, speech normal Skin: no new rashes, bruises Assessment & PlanCardiac arrest ([facility]) Shock ([facility]) ([facility]) Nonrheumatic mitral valve regurgitation -- S/p PCI x4 to LM-LAD c/b PEA arrest with 15 minutes of CPR and ECMO cannulation, finding of acute stent thrombosis s/p PTCA > with subsequent Impella 5.5 placement and decannulation of ECMO on 08/06/2024 -Wean pressors/Impella support as able -Moderate MR noted on TTE and at bedside with large V waves on wedge waveform, plan for MARQUES -Continue supportive care for now, low threshold to evaluate MR severity with MARQUES if inability to wean Impella Triple vessel coronary artery diseaseAcute non-ST elevation myocardial infarction (NSTEMI) ([facility]) ([facility]) - S/p PCI x4 to LM-LAD c/b PEA arrest with 15 minutes of CPR and ECMO cannulation, > with subsequent Impella 5.5 placement and decannulation of ECMO on 08/06/2024. - Lipids: continue atorvastatin 40 mg PO daily - Antiplatelet: continue aspirin 81 mg PO daily; brilinta 90 mg BID Tachy-sen syndrome ([facility]) ([facility])- Likely ischemia-related; will reassess rhythm and rate status after re-vascularization - Continue telemetry monitoring while inpatient Atrial fibrillation with RVR (CMS/HCC) (HCC) - Anticoagulation: heparin drip while hospitalized; DOAC after procedures/surgery -Continue amiodarone ggt for now. Compression fracture of T10 vertebra (HCC) - Incidental finding noted on admission CT - No surgical intervention at this time per ortho spine team Peripheral vascular disease (HCC) -Arterial doppler with evidence of PAD with distal reconstitution -9 [place] Sheath removed 08/07 Prediabetes - Sliding scale insulin + Current Diet: NPO Diet Cardiology Staff Attestation;I have seen and examined the patient with Dr. Velez on 08/09/2024 I have reviewed all the clinical information, lab investigations, radiographic and other imaging data. I agree with findings, assessment and plan as outlined. Treatment plan was formulated under my direct supervision. * Nirmal Cagle III, MD - 08/09/2024 7:27 AM CDT [facility] CCU Consult Note Patient ID: Nichelle Hampton is a 69 y.o. female. Chief Complaint: No chief complaint on file. Referring Physician: Leila Lozano NP Reason for Consult: Reason For Consult: Critical care management Assessment: Nichelle Hampton is a 69 yo F with HTN, T2DM, and CAD who was transferred to [facility] for high risk PCI which she went under on 08/06 with x4 SARAH placement c/b PEA requiring emergent vaECMO that was transitioned to Impella 5.5 (08/06). Extubated on 08/07 to HHFNC. Interval Events: Minimal settings on HHFNC. On tube feeds pending FEES with [employer] SALES REPRESENTATIVE. Weaned to Nasal cannula. Needs BiPAP at night for volume expansion given atelectasis on CXR. Problem List: Patient Active Problem List Diagnosis Cardiac arrest (HCC) Shock (CMS/HCC) (HCC) Compression fracture of T10 vertebra (HCC) Acute non-ST elevation myocardial infarction (NSTEMI) ([facility]) ([facility]) Tachy-sen syndrome ([facility]) ([facility]) Tobacco use disorder Peripheral vascular disease ([facility]) Normocytic anemia Triple vessel coronary artery disease Diabetes mellitus ([facility]) New onset of congestive heart failure ([facility]) ([facility]) Cellulitis Atrial fibrillation with RVR ([facility]) ([facility]) Prediabetes Elevated troponin Hypertension Tobacco use Coronary artery disease Hyponatremia Hyperglycemia Pulmonary edema cardiac cause ([facility]) ([facility]) Plan: Neurological: -continue MMPR - scheduled tylenol, gabapentin; prn tramadol -delirium precautions with family visitation, frequent re-orientation, regulation of day night cycles Cardiovascular: -MCS/VAD management per AHF - -vasoactive/inotropic management per AHF - off epinephrine this AM -rhythm management per AHF/EP - amio gtt -anticoagulation management per AHF - heparin gtt -volume management per AHF/renal - will discuss with cardiology about spot dosing diuresis -CAD management per AHF - ASA/Brillinta/atorvastatin -GDMT/BP management per AHF - holding Respiratory: -encourage IS/mobility - wean to nasal cannula - BiPAP at night for volume expansion given degree of atelectasis on CXR -titrate oxygen therapy to SpO2<92% Gastrointestinal: -continue TF at tropic rate, pending FEES with [employer] SALES REPRESENTATIVE today -continue bowel regimen -continue GI prophylaxis Renal: -continue to monitor renal indices -avoid nephrotoxic medications -renally dose medications -replete electrolytes -volume management per CV section Endocrine: -continue SSI with basal/bolus if needed -blood sugar goals of 140-180 -will start on basal bolus once 24 hour SSI requirement Hematology/Oncology: -no evidence of active bleeding, cleaning impella dressing -transfuse for Hgb<7 or hemodynamic instability with active bleeding -anticoagulation per CV section Infectious Disease: -patient with no active signs/symptoms of infection -monitor WBC/temperature curve; obtain blood cultures and infectious work-up if clinically indicated -on vancomycin and cefepime (08/06 - p) -obtain ProCal and MRSA nares to aid with de-escalation Musculoskeletal/Skin: -PT/OT if appropriate - Spine brace for T10 extension injury, ortho to review CT scan to clear patient -encourage ambulation and OOB to chair if tolerated -nursing care with frequent turning to prevent pressure injury TLD: Gastric Tube 08/07/24 Cortrak 10 Fr Right nostril (Active) Drain 08/06/24 Closed drain, to suction Right;Superior Chest 19 Fr. (Active) Urethral Catheter 16 Fr. (Active) Introducer 08/06/24 Double-lumen;[place]-Lei in place Internal jugular vein Right (Active) Arterial Line 08/07/24 Right Radial (Active) Midline Catheter 08/04/24 Single-lumen 4 Right Basilic vein (Active) ICU Quality Review -ICU day: 2d 9h -mechanically ventilated: no -restraints indicated: no -PT/OT: ordered -DVT prophylaxis: systemic anticoagulation -GI prophylaxis: yes -central Lines: RIJ swan -arterial Lines: right radial -devices: Impella 5.5 axial -perkins: yes 08/07 -tubes/drains: Right superior chest tube -Pressure injury: Pressure injury: none Recommendations not finalized until attested by attending. Nirmal Cagle MD PGY 2 [facility] | Internal Medicine PAST MEDICAL HISTORY: Medical History[1] PAST SURGICAL HISTORY: Surgical History[2] FAMILY HISTORY: Family History[3] SOCIAL HISTORY: reports that she quit smoking about 58 years ago. Her smoking use included cigarettes. She uses smokeless tobacco. She reports current alcohol use of about 6.0 standard drinks of alcohol per week. She reports that she does not use drugs. ALLERGIES: Allergies[4] HOME MEDICATIONS: Medication Documentation Review Audit Reviewed by Aracelis Chavez RN (Registered Nurse) on 08/09/24 at 0722 Medication Order Taking? Sig Documenting Provider Last Dose Status evolocumab (Repatha SureClick) 140 MG/ML Subcutaneous Solution Auto-injector [id number] Inject 1 mL under the skin every 14 days. Leial Lozano NP Active Vitals:Visit Vitals BP 102/62 Pulse 65 Temp 37.2 ?C (99 ?F) Resp (!) 25 Ht 1.61 m (5' 3.39") Wt 62.6 kg (138 lb 0.1 oz) SpO2 98% BMI 24.15 kg/m? OB Status Postmenopausal Smoking Status Former BSA 1.67 m? Tube/Drain Output:Output by Drain (mL) 08/07/24 0700 - 08/07/24 1859 08/07/24 1900 - 08/08/24 0659 08/08/24 0700 - 08/08/24 1859 08/08/24 1900 - 08/09/24 0659 08/09/24 0700 - 08/09/24 0727 Drain 08/06/24 Closed drain, to suction Right;Superior Chest 19 Fr. 20 10 0 Physical Exam Constitutional: No distress. HENT: Mouth/Throat: Oropharynx is clear. Eyes: Conjunctivae are normal. Pulmonary/Chest: Breath sounds normal. She has no wheezes. She has no rales. Impella dressing clean without evidence of bleeding No erythema around insertion site dressing Abdominal: Soft. She exhibits no distension. There is no abdominal tenderness. Musculoskeletal: General: No tenderness or edema. Neurological: She is alert. Skin: Skin is warm. Labs: Last ABG Results from last 7 days Lab Units 08/09/24 0015 08/08/24 0617 08/08/24 0009 POC PH, ARTERIAL 7.45 7.38 7.43 POC PCO2, ARTERIAL mmHg 31* 32* 31* POC PO2, ARTERIAL mmHg 72* 130 113 POC HCO3, ARTERIAL mMol/L 22 19* 21* POC SO2, ARTERIAL (CALC) % 95.0 98.9 98.5 POC SO2, ARTERIAL % 97.8 99.2 100.0 POC BASE EXCESS, ARTERIAL mMol/L -2 -6* -3* Last CBC ResultLast Lab Result Automated Differential Collection Time: 08/09/24 12:08 AM Result Value Ref Range Segs % 79.6 (H) 40.9 - 70.4 % Lymphs % 10.2 (L) 15.3 - 46.4 % Monos % 8.6 3.9 - 10.9 % Eos % 0.2 (L) 0.3 - 4.1 % Basos % 0.4 0.2 - 1.3 % Immature Grans % 1.0 0.1 - 1 % Segs # 13.41 (H) 2.03 - 7.09 10*3/uL Lymphs # 1.71 1.09 - 3.65 10*3/uL Monos # 1.45 (H) 0.27 - 0.78 10*3/uL Eos # 0.04 0.02 - 0.33 10*3/uL Basos # 0.07 0.01 - 0.09 10*3/uL Imm Grans # 0.16 (H) 0.01 - 0.07 10*3/uL Complete Blood Count Collection Time: 08/09/24 12:08 AM Result Value Ref Range WBC 16.84 (H) 4.15 - 10.55 10*3/uL RBC 3.26 (L) 3.74 - 5.22 10*6/uL NRBC % 0.0 0 /100 WBC Hgb 9.9 (L) 10.8 - 14.8 g/dL Hct 29.8 (L) 33.9 - 45.4 % MCV 91.4 77.8 - 97.5 fL MCH 30.4 24.9 - 32.6 pg MCHC 33.2 30.1 - 35.0 g/dL RDW - SD 55.3 (H) 37.6 - 49.1 fL Plt Count 163 (L) 191 - 422 10*3/uL MPV 11.1 9.0 - 12.6 fL Last BMP or CMP ResultLast Lab Result Basic Metabolic Panel Collection Time: 08/06/24 12:12 AM Result Value Ref Range Glucose Lvl 166 (H) 70 - 99 mg/dL BUN 13 9 - 23 mg/dL Creatinine Lvl 0.69 0.55 - 1.02 mg/dL Sodium Lvl 136 136 - 145 mEq/L Potassium Lvl 4.1 3.4 - 4.5 mEq/L Chloride Lvl 103 98 - 107 mEq/L CO2 Lvl 25.5 20.0 - 31.0 mEq/L Anion Gap 11.6 10.0 - 20.0 mEq/L Calcium Lvl 8.2 (L) 8.3 - 10.6 mg/dL eGFR 93 >60 mL/min/1.73m2 Culture ResultsNo results found for the last 90 days. Bowel Movements:No data recorded Ventilator Settings Active Medications amiodarone, 1 mg/min, Last Rate: 1 mg/min (08/09/24 6509) amiodarone in D5W 500 mL, , Last Rate: 1 mg/min (08/06/24 033) EPINEPHrine, , Last Rate: 3 mcg/min (08/06/24 1909) [Held by provider] EPINEPHrine, 3 mcg/min, Last Rate: Stopped (08/08/24 1400) heparin 12,500 Units in dextrose 5 % 500 mL infusion, , Last Rate: 12.8 mL/hr at 08/08/24 1900 heparin, 400 Units/hr, Last Rate: 400 Units/hr (08/09/24 0653) norepinephrine, , Last Rate: Stopped (08/06/24 1939) peptamen AF, , Last Rate: 50 mL/hr at 08/09/24 0400 potassium chloride, , Last Rate: 20 mEq (08/06/24 1727) sodium chloride, , Last Rate: 500 mL (08/06/24 1605) acetaminophen, 650 mg, Oral, q6h [Held by provider] amiodarone, 200 mg, Oral, BID aspirin, 81 mg, Oral, Daily atorvastatin, 40 mg, Oral, Daily cefepime, 1 g, Intravenous, q8h Enteral Free water Flush, 30 mL, Nasogastric, q4h gabapentin, 100 mg, Oral, q8h methocarbamol, 500 mg, Oral, q8h DARYL polyethylene glycol (PEG) 3350, 17 g, Oral, Daily sennosides, 1 tablet, Oral, BID sodium bicarbonate, 50 mEq, Intravenous, Once thiamine, 100 mg, Nasogastric, Daily ticagrelor, 90 mg, Oral, q12h DARYL vancomycin, 750 mg, Intravenous, q12h PRN medications: amiodarone in D5W 500 mL, calcium gluconate, chlorhexidine, dextrose, dextrose, EPINEPHrine, glucagon, insulin lispro, magnesium sulfate, norepinephrine, potassium & sodium phosphates OR potassium & sodium phosphates, potassium chloride OR potassium chloride OR potassium chloride OR Potassium chloride, potassium chloride, sodium chloride, sodium chloride, sodium chloride, sodium chloride, sodium chloride, sodium phosphates 45 mmol in sodium chloride 0.9 % 100 mL IVPB, traMADol, Pharmacy to dose vancomycin AND Vancomycin Pharmacy Dosing [1]Past Medical History: Diagnosis Date Diabetes mellitus (HCC) PATIENT CLAIMED THAT SHE HAS DIABETES [2] History reviewed. No pertinent surgical history. [3] Family History: Problem Relation Name Age of Onset Diabetes Mother No Known Problems Father [4] No Known Allergies Cosigned by Dino Domínguez MD at 08/22/2024 12:32 AM CDT * Marisa Neri RN - 08/08/2024 4:14 PM CDT CASE MANAGEMENT ROUTINE DISCHARGE PLAN NOTE LOS: 8 Barriers to Discharge: Barrier to Discharge: MV CAD. Heparin drip, amio, IV abx x2. 08/06 Impella. DISCHARGE PLAN A/B: Home MILENA: 1 week. * Francia Tariq OT - 08/08/2024 3:44 PM CDT Evaluation and Treatment Patient Name: Nichelle Hamtpon Today's Date: 08/09/2024 Preferred Language: Italian Assessment & Plan 69 yo female w/ PMH including HTN, DM, CAD and tobacco abuse who was transferred to [facility] for revascularization after LHC at [facility] revealed multivessel disease with severe L main disease. Other relevant events at OSH included cellulitis 2/2 to spider bite and hypoxic respiratory failure requiring bipap, afib RVR and possible new diagnosis of CHF (EF 45-50%). 08/06 high-risk PCI/SARAH x4, complicated by PEA, emergent vaECMO, due to in-stent thrombosis 08/06 Impella 5.5 placement axillary R and vaECMO removal w/ art repair Assessment: Pt is currently performing below her reported baseline level of function of independent with ADL and IADL. Pt currently requires Mod A for bed mobility and Min A for STS. Pt mainly limited by decreased functional strength and FA tolerance. Pt motivated to work with therapy to assist with return to PLOF pt will benefit from skilled OT services to maximize functional independence and safety. OT Assessment Results: Impaired ADL status, Impaired endurance, Impaired functional mobility, Impaired IADLs Prognosis: Good Plan: Treatment Plan/Goals Established with Patient/Caregiver: Yes Treatment Interventions: ADL retraining, Continued evaluation, Endurance training, Functional transfer training, UE strengthening/ROM OT Plan: Skilled OT OT Frequency: 3-5 times per week until discharge OT Duration: Discharge Subjective "I feel fine." Objective Pt presented in semi-livingston's, agreeable to OT eval. Pt on VT 20L/50% FiO2, A line, perkins, Impella 5.5 (R axillary), [place], Multiple PIVs, RIJ. RN and CS present to monitor lines and Impella 5.5. Lines and room prepped. Pt noted for T10 fx though unclear of precautions. OT to follow strict spinal precautions as precaution. Pt states was told to wear TLSO when ambulating OOB. OT edu pt on strict spinal precautions and pt verbalized understanding. OT edu pt on RUE Impella precautions as well, understanding verbalized.Pt transferred EOB with Mod A via log roll. Pt remained seated EOB~3 min to acclimate, VSS, and no symptoms reported. Pt washed face set up A. Pt stood Min A and took ~4 L lateral side steps toward HOB Min A KNUCKLER. Pt transferred sit>sup with Mod A via log roll. Pt left in semi-livingston's, VSS, all needs met. VS pre: HR 66, 99.74(81) SPO2 96%, SVO2 74 VS post: HR 97, 102/69 (77), SPO2 96%, SVO2 72% Impella pre: P8, 4.2 LPM,117/75(86) Impella post: P8, 4.3 LPM, 124/71(84) Precautions: UE Weight Bearing Status: (NWB RUE) Medical Precautions: (RUE impella; spinal; TLSO when OOB) Post-Surgical Precautions: RUE impella Braces Applied: (TLSO for OOB) Cognition: Overall Cognitive Status: Within Functional Limits Behavior/Cognition: Alert, Cooperative, Pleasant mood Orientation Level: Oriented X4 Home Living: Type of Home: House Lives With: Son Home Adaptive Equipment: None Home Layout: One level Bathroom Shower/Tub: Tub/shower unit Prior Function: ADL Assistance: Independent Prior Function Comments: Pt reports she is independent with ADL and IADL though has history of multiple falls Self Care (ADL): Self Care/Home Management (ADLs) Time Entry: 25 Grooming Assistance: Setup/clean-up assistance LE Dressing Assistance: Substantial/Max assistance Mobility/Transfers: Bed Mobility Bed Mobility Bed Mobility: Yes Bed Mobility 1 Level of Assistance 1: Partial/Mod assistance Bed Mobility Comments 1: Mod Ax2 for line mgt Bed Mobility To/From: Supine to sit on EOB, Sitting EOB to supine Transfer Transfers Transfer: Yes Transfer 1 Level of Assistance 1: Partial/Mod assistance Transfer To/From: [id number], Bed OT General Assessments: ADL Self Care/Home Management (ADLs) Time Entry: 25 Grooming Assistance: Setup/clean-up assistance LE Dressing Assistance: Substantial/Max assistance Activity Tolerance Endurance: Tolerates 30 min exercise with multiple rests Sensation Light Touch: RUE Intact, LUE Intact Hand FunctionGross Grasp: Functional Coordination: Functional Extremity Assessments:Right Upper Extremity RUE Assessment RUE Assessment: Within Functional Limits Left Upper Extremity LUE AssessmentLUE Assessment: Within Functional Limits Treatment:Self-Care: Self Care/Home Management (ADLs) Time Entry: 25 Grooming Assistance: Setup/clean-up assistance LE Dressing Assistance: Substantial/Max assistance Bed Mobility:Bed Mobility Bed Mobility: Yes Bed Mobility 1 Level of Assistance 1: Partial/Mod assistance Bed Mobility Comments 1: Mod Ax2 for line mgt Bed Mobility To/From: Supine to sit on EOB, Sitting EOB to supine Transfers:Transfers Transfer: Yes Transfer 1 Level of Assistance 1: Partial/Mod assistance Transfer To/From: [id number]/[id number], Bed MobilityHighest Level of Mobility Performed (-M): Static standing (1 or more minutes) Goals:Encounter Goals Encounter Goals (Active) Pt will perform OOB ADL routine with no rest breaks required for increased FA tolerance Start: 08/08/24 Expected End: 09/05/24 Pt will perform functional transfers Mod I Start: 08/08/24 Expected End: 09/05/24 Pt will perform toileting Mod I Start: 08/08/24 Expected End: 09/05/24 Treatment Note: If this is the last documented treatment, then it will signify discharge from acute care prior to discharge from the therapy service and will serve as the discharge summary. Francia Tariq OT * Pavan Mcguire MD - 08/08/2024 3:18 PM CDT HF Surgery Progress Note #Multivessel CAD with left main dx. #acute hypoxemic respiratory failure #Pulmonary edema #preop pulmonary edema #CHF #cellulitis #afib RVR #dm2 #htn #tobacco use PMH: 69 yo female w/ PMH including HTN, DM, CAD and tobacco abuse who was transferred to [facility] for revascularization after LHC at [facility] revealed multivessel disease with severe L main disease. Other relevant events at OSH included cellulitis 2/2 to spider bite and hypoxic respiratory failure requiring bipap, afib RVR and possible new diagnosis of CHF (EF 45-50%). 08/06 high-risk PCI/SARAH x4, complicated by PEA, emergent vaECMO, due to in-stent thrombosis 08/06 Impella 5.5 placement axillary R and vaECMO removal w/ art repair Subjective: Day 2 on Impella 5.5, Back to P8, to allow inotropic weaning. Epi 3. Known chronic SFA occlusion R, profunda leg R. Hep 200. Skin bleeding at impella site since yesterday evening, did a few stiches bedside today, bleeding stopped. A/P: - wean epi, keep Impella P8 - ambulation w/ PT - then weaning off impella as tolerated - consult vascular for SFA occlusion R Art Doppler US 08/07 1. Right mid and distal SFA and proximal popliteal artery occlusion. Post occlusion reconstitution distal popliteal, posterior tibial, anterior tibial and dorsalis pedis arteries with low resistance low flow waveform. 2. Left mid and distal SFA occlusion with low resistance low flow with reconstitution within the proximal and distal popliteal, and anterior and posterior tibial and dorsalis pedis arteries. Objective Last Recorded Vitals Blood pressure 105/62, pulse 67, temperature 37.5 ?C (99.5 ?F), resp. rate (!) 129, height 1.61 m (5' 3.39"), weight 62.3 kg (137 lb 5.6 oz), SpO2 95%. Ventricular Assist Device(VAD) Initial VAD Type: LVAD VAD Pump: Impella Impella Device: Impella 5.5 VAD Laterality: Left Pump Flow (L/min): 4.4 VAD P-Level: 8 Placement Signal: 114/62 Motor Current (mA): 457/401 Purge Flow (mL / hr): 12.6 Purge Pressures (mmHg): 485 Site Marker (cm): 43 Pertinent Labs : Lab Results Component Value Date WBC 16.69 (H) 08/08/2024 POC V Hgb Tot 8.0 (L) 08/08/2024 Hgb 8.6 (L) 08/08/2024 POC A Hct (calc) 25.0 (L) 08/08/2024 POC V Hct (calc) 24.0 (L) 08/08/2024 Hct 25.4 (L) 08/08/2024 POC O Hct (calc) 29.0 (L) 08/08/2024 Plt Count 165 (L) 08/08/2024 Lab Results Component Value Date POC V Na 137 08/08/2024 POC A Na 136 08/08/2024 Sodium Lvl 143 08/08/2024 POC V K 4.3 08/08/2024 POC A K 4.4 08/08/2024 Potassium Lvl 4.1 08/08/2024 POC V Cl 109 08/08/2024 POC Chloride 109 08/08/2024 Chloride Lvl 112 (H) 08/08/2024 CO2 Lvl 20.6 08/08/2024 BUN 14 08/08/2024 Creatinine Lvl 0.64 08/08/2024 POC V Glu 168 (H) 08/08/2024 POC A Glu 173 (H) 08/08/2024 Glucose Lvl 159 (H) 08/08/2024 Lab Results Component Value Date Calcium Lvl 7.7 (L) 08/08/2024 Magnesium 2.30 08/08/2024 Phosphorus Lvl 3.2 08/08/2024 Lab Results Component Value Date AST 63 (H) 08/08/2024 ALT 69 (H) 08/08/2024 Alkaline Phosphatase 83 08/08/2024 Lab Results Component Value Date PTT 34.9 08/08/2024 Prothrombin Time (PT) 15.0 (H) 08/08/2024 INR 1.16 (H) 08/08/2024 Physical Exam: Constitutional: Interventions: She is sedated and intubated. HENT: Head: Atraumatic. Nose: Nose normal. Mouth/Throat: Mouth: Mucous membranes are moist. Eyes: Extraocular Movements: Extraocular movements intact. Conjunctiva/sclera: Conjunctivae normal. Cardiovascular: Rate and Rhythm: Normal rate and regular rhythm. Heart sounds: Normal heart sounds. Pulmonary: Effort: She is intubated. Abdominal: General: Bowel sounds are normal. Palpations: Abdomen is soft. Skin: General: Skin is warm. Capillary Refill: Capillary refill takes less than 2 seconds. Neurological: General: No focal deficit present. Psychiatric: Behavior: Behavior is cooperative. Assessment & PlanTriple vessel coronary artery disease Acute non-ST elevation myocardial infarction (NSTEMI) (CMS/HCC) (HCC) Tachy-sen syndrome (CMS/HCC) (HCC) Tobacco use disorder Peripheral vascular disease (HCC) Normocytic anemia Compression fracture of T10 vertebra (HCC) New onset of congestive heart failure (CMS/HCC) (HCC) Atrial fibrillation with RVR (CMS/HCC) (HCC) Prediabetes Diabetes mellitus (HCC) Coronary artery disease Cardiac arrest (HCC) Shock (CMS/HCC) (HCC) Current Diet: NPO Diet Cosigned by Jacques Mejia MD at 08/19/2024 10:54 PM CDT Associated attestation - Jacques Mejia MD - 08/19/2024 10:54 PM CDT I have seen and examined the patient with Fellow on 08/08/24 I have reviewed all the clinical information, lab investigations and imaging data. I agree with the above examination findings, assessment, and plan. I was present and supervised. * CHASTITY Davis-[employer]STRUM[employer] SALES REPRESENTATIVE - 08/08/2024 1:25 PM CDT Speech-Language Pathology Encounter Note Patient Name: Nichelle Hampton Today's Date: 08/08/[address] evaluation. Patient seen at bedside with RN. RN reported aphonic vocal quality and tolerance of single ice chips with intermittent coughing episodes. Vapotherm of 20L at 50% FiO2. Recommend patient complete FEES on 08/09 to further evaluate swallow ability. Recommendations: Continue NPO with DHT, ice chips OK Orders placed to complete FEES on 08/09 (during AM) EDITH Davis * Shahzad Rg PharmD - 08/08/2024 10:46 AM CDT Clinician Notes: Continue current dose of 750 mg Q12H Next vancomycin level on 08/10 Recommended Dose: 750 mg IV over 1 hour every 12 hours for 2 days Next Dose At: 11:14 on Aug 08 2024 Dosing Interval: 12 hours Infusion Length: 1 hours Dose Valid For: 2 days only Dose Recommendation Method: Individualized model Target Outcome: AUC24: 450 mcg.h/mL Predicted Outcome: AUC24: 446.34 mcg.h/mL Predicted Peak: 25 mcg/mL Predicted Trough: 13.3 mcg/mL Predicted AUC24: 446.3 mcg.h/mL Predicted AUC12: 223.2 mcg.h/mL Most Recent Dose: 750 mg over 1 hours at 23:14 on Aug 07 2024 Most Recent SCr: 0.64 mg/dL at 04:13 on Aug 08 2024 Most Recent Blood Concentration: 18.4 mcg/mL at 22:54 on Aug 07 2024 Peak: 28.2 mcg/mL Trough: 15 mcg/mL AUC24: 505 mcg.h/mL AUC12: 253 mcg.h/mL * Ever Campbell MD - 08/08/2024 10:13 AM CDT Images from the original note were not included. Hemotherapy Progress Note Patient ID: Nichelle Hampton (69 y.o. female) Chief Complaint: No chief complaint on file. Admission Date: 07/31/2024 Referring Physician/Service: F ICU Reason for Consult: New Impella SUBJECTIVE: 69 yo female w/ PMH including HTN, DM, CAD and tobacco abuse who was transferred to [facility] for revascularization after LHC at [facility] revealed multivessel disease with severe L main disease. Other relevant events at OSH included cellulitis 2/2 to spider bite and hypoxic respiratory failure requiring bipap, afib RVR and possible new diagnosis of CHF (EF 45-50%). Went for PCI x4 on 08/06 c/b PEA arrest s/p ECMO s/p Impella 5.5 placement. 08/07: Hgb drop to 5.8, given 2u pRBC with rpt hgb 7.7, systemic heparin held 08/08: Drain output decreased, mild oozing from R chest incision to be closed at bedside. OBJECTIVE: EXAM BP 104/62 | Pulse 87 | Temp 37.3 ?C (99.1 ?F) | Resp (!) 43 | Ht 1.61 m (5' 3.39") | Wt 62.3 kg (137 lb 5.6 oz) | SpO2 95% | BMI 24.03 kg/m? Gen: Comfortable, awake and alert Neuro: No focal deficits appreciated HEENT: PERRL; EOMI; No scleral icterus CV/Pulses: RRR; 2+ peripheral pulses Pulm: on HFNC symmetric chest rise GI: Soft; NTND : Deferred MS: Tone intact Skin/Ext: No changes in lesions; 1+ pitting edema LABS: Lab Results Component Value Date Albumin Lvl 3.1 (L) 08/08/2024 Albumin Lvl 2.3 (L) 08/07/2024 Protein 5.2 (L) 08/08/2024 Protein 5.2 (L) 08/07/2024 ALT 69 (H) 08/08/2024 ALT 149 (H) 08/07/2024 AST 63 (H) 08/08/2024 AST 239 (H) 08/07/2024 Bilirubin Total 0.78 08/08/2024 Bilirubin Total 0.50 08/07/2024 WBC 18.54 (H) 08/08/2024 WBC 17.24 (H) 08/07/2024 POC V Hgb Tot 8.0 (L) 08/08/2024 Hgb 7.7 (L) 08/08/2024 Plt Count 210 08/08/2024 Plt Count 214 08/07/2024 INR 1.16 (H) 08/08/2024 INR 1.19 (H) 08/07/2024 PTT 34.9 08/08/2024 PTT 46.6 (H) 08/07/2024 LDH Tot 421 (H) 08/08/2024 LDH Tot 590 (H) 08/07/2024 Hgb, Plasma 10 08/08/2024 Hgb, Plasma 10 08/07/2024 Results from last 7 days Lab Units 08/08/24 0413 08/07/24 1801 08/07/24 1225 08/07/24 0605 INR 1.16* 1.19* -- 1.14* PTT Seconds 34.9 46.6* 30.4 31.8 IMAGING: Images were reviewed. ASSESSMENT AND PLAN: 69 yo female w/ PMH including HTN, DM, CAD and tobacco abuse who was transferred to [facility] for revascularization after LHC at [facility] revealed multivessel disease with severe L main disease. Other relevant events at OSH included cellulitis 2/2 to spider bite and hypoxic respiratory failure requiring bipap, afib RVR and possible new diagnosis of CHF (EF 45-50%). Went for PCI x4 to LM-LAD c/b PEA arrest with 15 minutes of CPR and ECMO cannulation, finding of acute stent thrombosis s/p PTCA > with subsequent Impella 5.5 placement and decannulation of ECMO on 08/06/2024. Anemia/RBC:H/H Stable, required 1u pRBCs 08/04, 08/06 in OR, 2 units pRBC 08/07 Anemia cause(s): s/p impella - SAGE output acceptable Anemia studies: normocytic, will consider iron studies Anemia therapy: s/p RBC transfusion on 08/07 Blood Type: O Pos ; Antibody screen: negative; Antibody History: unknown Monitor, transfuse if Hb < 7/8 mmHg/dL. Platelet:Count: stable Consumption by devices: Imeplla 5.5 Antiplatelet medication: Asa 81, Brillinta 90 first dose 08/07 Monitor, transfuse when Platelet count < 20K or <50K if actively bleeding. Coagulation:PT/INR mildly elevated PTT appropriate, monitor as heparin started Fibrinogen acceptable, transfuse cryoprecipitate for fibrinogen <150 mg/dL Monitor. Anticoagulation for Impella 5.5:Device heparin started 08/06 Monitor for bleeding. Oozing from surgical site to be addressed at bedside Plan to resume systemic heparin 1 hour post surgical site closure Patient seen and discussed with Dr. Campbell. Please see attending attestation for final plan. Krunal Heaton, KATIEGY-1, Department of Anesthesiology, Critical Care and Pain Medicine [employer] at [facility] Attending Note: The patient was seen and evaluated by myself. Review the labs and imaging data. Agree with Amari 's assessment and plan which reflect my input. On Impella 5.5. ASA and Brilinta. Oozing from Impella stitching site. S/p 2 RBC 08/07. Transfuse one RBC today. Appreciate HF surgical fellow suturing the site. Bleeding controlled. Device Heparin. Systemic Heparin start 200 units/hr. Gradually titrate up. * Dino Domínguez MD - 08/08/2024 8:25 AM CDT ID PULMONARY CRITICAL CARE MEDICINE - NoteType: PROGRESS NOTE Patient ID: @[email or web address]@ is a 69 y.o. female. Chief Complaint: No chief complaint on file. Admission date: 07/31/2024 Referring Physician: Leila Lozano NP Reason for Consult: Reason For Consult: Critical care management Interval events Extubbated overnight, doing well Vapo at 50%, coughing and appears congested Epi off now No signs of bleeding Impella at p-6 at 3.4 Peripheral pulses intact ASSESSMENT/PLAN: Problem List: Principal Problem: Triple vessel coronary artery disease Active Problems: Acute non-ST elevation myocardial infarction (NSTEMI) (CMS/HCC) (HCC) Tachy-sen syndrome (CMS/HCC) (HCC) Tobacco use disorder Peripheral vascular disease (HCC) Normocytic anemia Compression fracture of T10 vertebra (HCC) Cardiac arrest (HCC) Shock (CMS/HCC) (HCC) New onset of congestive heart failure (CMS/HCC) (HCC) Atrial fibrillation with RVR (CMS/HCC) (HCC) Prediabetes Coronary artery disease Diabetes mellitus (HCC) Problem List[1] Principal Problem: Triple vessel coronary artery disease Active Problems: Acute non-ST elevation myocardial infarction (NSTEMI) (CMS/HCC) (HCC) Tachy-sen syndrome (CMS/HCC) (HCC) Tobacco use disorder Peripheral vascular disease (HCC) Normocytic anemia Acute hypoxic respiratory failure (HCC) New onset of congestive heart failure (CMS/HCC) (HCC) Atrial fibrillation with RVR (CMS/HCC) (HCC) Prediabetes Diabetes mellitus (HCC) #Multivessel CAD with left main dx. #acute hypoxemic respiratory failure #Pulmonary edema #preop pulmonary edema #CHF #cellulitis #afib RVR #dm2 #htn #tobacco use Assessment: 69 yo female w/ PMH including HTN, DM, CAD and tobacco abuse who was transferred to [facility] for revascularization after LHC at [facility] revealed multivessel disease with severe L main disease. Other relevant events at OSH included cellulitis 2/2 to spider bite and hypoxic respiratory failure requiring bipap, afib RVR and possible new diagnosis of CHF (EF 45-50%). Neuro/Psych: -Delirium precautions - off sedation now following commands - start pain meds: tylenol and robaxin, gabapentin CV: - LHC (07/30/24) notable for severe 80% LM disease, and severe multivessel disease. She declined CABG, plan is for high risk PCI - Cont. Asa and atorvastatin - MARQUES, mild global hypokinesis, reduced EF 45-50% and DCCV (07/30/24). - Amiodarone on hold given tachy sen syndrom, cont heparin gtt for afib - s/p impella 5.5, bridge to recovery Resp: - wean supplemental oxygen, wean as tolerated to maintain spo2 >92% - CT chest (07/31)- Small bilateral pleural effusions, greater on the left. Dependent consolidative opacities with air bronchogram and surrounding groundglass in the bilateral lower lobes. Mild diffuse groundglass is associated with interlobular septal thickening. Scattered bilateral subsegmental atelectasis in both lungs. Minimal upper lobe predominant centrilobular emphysema. - PFT(07/31) - Restrictive ventilatory defect likely in setting of pulmonary edema and opacities seen on CT chest. - CXR with pulmonary congestion and atlectasis - bipap at night for volume expansion GI/Nutrition:- keep NPO for now - swallow test after extubation - increase LFT due to cardiac arrest Renal/Electrolytes:- UOP is good, - Replace electrolytes per unit protocol - Monitor I/Os Endo: Lab ResultsComponent Value Date Hgb A1C 6.45 (H) 07/31/2024 TSH 1.224 07/28/2024 - BG goal 120 - 180, SSI as needed - insulin gtt for now Heme/Onc:-monitor For bleeding and coagulopathies - Transfuse to maintain hgb >7 - impella heparin gtt - low fixed dose heparin ID:- start broad spectrum abx given WBC 08/07 - blood cultures and resp cultures pending Msk/Skin/Deconditioned:- Consult PT/OT. - Continue wound care and sacral decubitus prevention. To Do- weaning vapotherm - PT/OT - bipap at night - swallow test - ICU quality> DVT prophylaxis: heparin gtt, SCD > PPI prophylaxis: start PPI > Nutrition/glucose control: SSI, BG 120-180 > Line and tubes: > Perkins catheter: indicated for critical illness > Sedation: off > Date of intubation: 08/06 > Restraints: placed This patient is critically ill. I spent 40 minutes of critical care time with this patient, not including procedure time Dino Domínguez MDUTH Pulmonary and Critical Care Medicine MSO# [id number] HISTORY OF PRESENT ILLNESS:NO Hampton is a 69 y.o. female with past medical history of hypertension, diabetes mellitus (on no meds), reported history of coronary artery disease and tobacco use, was transferred from [facility] after LHC revealed severe left main disease and multivessel disease. She was originally admitted for hand cellulitis after a spider bite, but during that hospital stay she had hypoxic respiratory failure requiring BiPAP, NSTEMI, possibly newly diagnosed CHF (EF 45-50%), and Afib w/ RVR. She underwent a MARQUES w/ cardioversion. LHC and RHC on 07/31/23 which showed normal filling pressures, LHC which showed 80% mid to distal LM lesion extending into the ostium of LAD, 60-70% mid LAD, diffuse LCx and OM disease, and 70-80% proximal to mid RCA disease. She was transferred to [facility] for revascularizaton. No data found. Enter data into the [facility] Mental Health Specialist navigator to see it here. Assessment & PlanAssessment & Plan Subjective INTERVAL EVENTS: [_]Temp (24hrs), Av.2 ?C (99 ?F), Min:36.7 ?C (98.1 ?F), Max:37.5 ?C (99.5 ?F) No data recordedI/O last 3 completed shifts: In: 4417.5 (70.6 mL/kg) [I.V.:1767.5 (28.2 mL/kg); Blood:900; Other:360; IV Piggyback:850] Out: 2600 (41.5 mL/kg) [Urine:2590 (1.1 mL/kg/hr); Drains:10] Weight: 62.6 kg FiO2 (%): 35 % No data found. No data found. PAST MEDICAL HISTORY:Medical History[2] PAST SURGICAL HISTORY:Surgical History[3] FAMILY HISTORY:Family History[4] SOCIAL HISTORY:Social History Socioeconomic HistoryMarital status: Spouse name: Not on file Number of children: Not on file Years of education: Not on file Highest education level: Not on file Occupational History Not on file Tobacco Use Smoking status: Former Current packs/day: 0.00 Types: Cigarettes Quit date: 1967 Years since quittin.2 Smokeless tobacco: Current Tobacco comments: PATIENT VERBALIZED "WELL NOW THAT I AM IN THE HOSPITAL, I CAN'T REALLY SMOKE Vaping Use Vaping status: Not on file Substance and Sexual Activity Alcohol use: Yes Alcohol/week: 6.0 standard drinks of alcohol Types: 6 Cans of beer per week Comment: [place] EVERYOTHER WEEKEND Drug use: Never Sexual activity: Not Currently Other Topics Concern Not on file Social History Narrative Not on file Social Drivers of Health Financial Resource Strain: Not on fileFood Insecurity: No Food Insecurity (07/31/2024) Hunger Vital Sign Worried About Running Out of Food in the Last Year: Never true Ran Out of Food in the Last Year: Never true Transportation Needs: No Transportation Needs (07/31/2024) PRAPARE - Transportation Lack of Transportation (Medical): No Lack of Transportation (Non-Medical): No Physical Activity: Not on file Stress: Not on file Social Connections: Not on file Intimate Partner Violence: Not At Risk (07/31/2024) Humiliation, Afraid, Rape, and Kick questionnaire Fear of Current or Ex-Partner: No Emotionally Abused: No Physically Abused: No Sexually Abused: No Housing Stability: Low Risk (07/31/2024) Housing Stability Vital Sign Unable to Pay for Housing in the Last Year: No Number of Times Moved in the Last Year: 0 Homeless in the Last Year: No ALLERGIES: Allergies[5] HOME MEDICATIONS:Medication Documentation Review Audit Reviewed by Aracelis Chavez RN (Registered Nurse) on 08/09/24 at 0722 Medication Order Taking? Sig Documenting Provider Last Dose Statusevolocumab (Repatha SureClick) 140 MG/ML Subcutaneous Solution Auto-injector [id number] Inject 1 mL under the skin every 14 days. Leila Lozano NP Active acetaminophen, 650 mg, Oral, q6h [Held by provider] amiodarone, 200 mg, Oral, BID aspirin, 81 mg, Oral, Daily atorvastatin, 40 mg, Oral, Daily cefepime, 1 g, Intravenous, q8h Enteral Free water Flush, 30 mL, Nasogastric, q4h gabapentin, 100 mg, Oral, q8h methocarbamol, 500 mg, Oral, q8h DARYL polyethylene glycol (PEG) 3350, 17 g, Oral, Daily sennosides, 1 tablet, Oral, BID sodium bicarbonate, 50 mEq, Intravenous, Once thiamine, 100 mg, Nasogastric, Daily ticagrelor, 90 mg, Oral, q12h DARYL vancomycin, 750 mg, Intravenous, q12h amiodarone, 1 mg/min, Last Rate: 1 mg/min (08/09/24 0700)amiodarone in D5W 500 mL, , Last Rate: 1 mg/min (08/06/24 182) EPINEPHrine, , Last Rate: 3 mcg/min (08/06/24 190) [Held by provider] EPINEPHrine, 3 mcg/min, Last Rate: Stopped (08/08/24 1400) heparin 12,500 Units in dextrose 5 % 500 mL infusion, , Last Rate: 12.8 mL/hr at 08/09/24 0700 heparin, 400 Units/hr, Last Rate: 400 Units/hr (08/09/24 07) norepinephrine, , Last Rate: Stopped (08/06/24 193) peptamen AF, , Last Rate: 50 mL/hr at 08/09/24 07 potassium chloride, , Last Rate: 20 mEq (08/06/24 1727) sodium chloride, , Last Rate: 999 mL/hr at 08/09/24 0700 PRN medications: amiodarone in D5W 500 mL, calcium gluconate, chlorhexidine, dextrose, dextrose, EPINEPHrine, glucagon, insulin lispro, magnesium sulfate, norepinephrine, phenol, potassium & sodium phosphates OR potassium & sodium phosphates, potassium chloride OR potassium chloride OR potassium chloride OR Potassium chloride, potassium chloride, sodium chloride, sodium chloride, sodium chloride, sodium chloride, sodium chloride, sodium phosphates 45 mmol in sodium chloride 0.9 % 100 mL IVPB, traMADol, Pharmacy to dose vancomycin AND Vancomycin Pharmacy Dosing PHYSICAL EXAM:Gen: intubated, sedated Neuro: No focal deficits appreciated HEENT: PERRL; EOMI; No scleral icterus CV/Pulses: PE_CV: RRR; 2+ peripheral pulses Pulm: Decreased breath sounds at the bases; No wheezing GI: BS (+); Soft; NTND : Deferred MS: Tone intact Skin/Ext: No changes in lesions; 1+ pitting edema LABS:Pertinent Labs : Lab Results Component Value Date WBC 16.84 (H) 08/09/2024 POC V Hgb Tot 10.1 (L) 08/09/2024 Hgb 9.9 (L) 08/09/2024 POC A Hct (calc) 31.0 (L) 08/09/2024 POC V Hct (calc) 30.0 (L) 08/09/2024 Hct 29.8 (L) 08/09/2024 Plt Count 163 (L) 08/09/2024 Lab ResultsComponent Value Date POC V Na 133 (L) 08/09/2024 POC A Na 133 (L) 08/09/2024 Sodium Lvl 140 08/09/2024 POC V K 4.0 08/09/2024 POC A K 3.9 08/09/2024 Potassium Lvl 3.8 08/09/2024 POC V Cl 108 08/09/2024 POC Chloride 108 08/09/2024 Chloride Lvl 111 (H) 08/09/2024 CO2 Lvl 21.9 08/09/2024 BUN 15 08/09/2024 Creatinine Lvl 0.55 08/09/2024 POC V Glu 148 (H) 08/09/2024 POC A Glu 172 (H) 08/09/2024 Glucose Lvl 169 (H) 08/09/2024 Lab ResultsComponent Value Date Calcium Lvl 7.5 (L) 08/09/2024 Magnesium 2.06 08/09/2024 Phosphorus Lvl 2.0 (L) 08/09/2024 Lab ResultsComponent Value Date AST 45 (H) 08/09/2024 ALT 52 (H) 08/09/2024 Alkaline Phosphatase 97 08/09/2024 Lab ResultsComponent Value Date PTT 42.3 (H) 08/09/2024 Prothrombin Time (PT) 15.5 (H) 08/09/2024 INR 1.21 (H) 08/09/2024 No results found for: "COLORU", "CLARITYU", "SPECGRAV", "PHUR", "PROTUR", "GLUCOSEU", "KETONESU", "NITRITEU", "LEUKOCYTESUR", "BILIRUBINUR", "UROBILINOGEN" No results found for: "CK", "TROPONINT", "TROPONINI", "BNP" IMAGING:@IMAGES@ EKG:Encounter Date: 07/31/24 ECG 12 lead Result Value Ventricular Rate 66 Atrial Rate 66 [place] Interval 132 QRS Duration 70 QT/QTc 418 QTc Calculation 438 P-Dayton 24 R-Dayton -27 T-Dayton 32 Impression SINUS RHYTHM NORMAL ECG WHEN COMPARED WITH ECG OF 30-JUL-2024 14:12, SINUS RHYTHM HAS REPLACED ATRIAL FIBRILLATION RATE HAS DECREASED CRITERIA FOR ANTERIOR INFARCTION NO LONGER PRESENT Confirmed by Jaiden Liriano ([id number]) on 07/31/2024 5:22:03 PM ECHO: Transthoracic echo (TTE) complete 07/31/2024 Interpretation SummaryLeft Ventricle: Left ventricle size is normal. Findings consistent with eccentric hypertrophy. Mild global hypokinesis present. Mildly reduced systolic function with an estimated EF of 45 - 50%. Grade I diastolic dysfunction of the left ventricle. Apical thrombus is not present verified by the use of contrast. Right Ventricle: Right ventricle size is normal. Normal systolic function in the right ventricle. TAPSE is 19 mm. Pericardium: No pericardial effusion present. Transesophageal echo (MARQUES) with possible cardioversion 07/30/2024 Interpretation SummaryLeft Ventricle: Left ventricle size is normal. Mild global hypokinesis present. Reduced systolic function with an estimated EF of 45 - 50%. Right Ventricle: Right ventricle size is normal. Normal systolic function in the right ventricle. Left Atrium: Normal sized left atrial appendage. No thrombus in left atrium present. Transthoracic echo (TTE) complete 07/28/2024 Interpretation SummaryPatient is in atrial fibrillation with RVR at the time of this study. LV systolic function assessment is suboptimal. Left Ventricle: Left ventricle size is normal. Mild global hypokinesis present. Mildly reduced systolic function with an estimated EF of 45 - 50%. Right Ventricle: Right ventricle size is normal. Normal systolic function in the right ventricle. Left Atrium: Left atrium is moderately dilated. Mitral Valve: Moderate mitral regurgitation present. Tricuspid Valve: Mild to moderate tricuspid regurgitation present. Mild to moderate pulmonary hypertension present. RVSP is 46.00 mmHg. Pericardium: Trivial pericardial effusion present. Left pleural effusion present. [1] Patient Active Problem List Diagnosis New onset of congestive heart failure (CMS/HCC) (HCC) Cellulitis Atrial fibrillation with RVR (CMS/HCC) (HCC) Prediabetes Elevated troponin Hypertension Tobacco use Coronary artery disease Hyponatremia Hyperglycemia Pulmonary edema cardiac cause (CMS/HCC) (HCC) Triple vessel coronary artery disease Acute non-ST elevation myocardial infarction (NSTEMI) (CMS/HCC) (HCC) Tachy-sen syndrome (CMS/HCC) (HCC) Tobacco use disorder Peripheral vascular disease (HCC) Normocytic anemia Diabetes mellitus (HCC) Compression fracture of T10 vertebra (HCC) Cardiac arrest (HCC) Shock (CMS/HCC) (HCC) [2] Past Medical History: Diagnosis Date Diabetes mellitus (HCC) PATIENT CLAIMED THAT SHE HAS DIABETES [3] History reviewed. No pertinent surgical history. [4] Family History: Problem Relation Name Age of Onset Diabetes Mother No Known Problems Father [5] No Known Allergies * Orestes Agrawal MD - 08/08/2024 7:52 AM CDT AHF ICU PROGRESS NOTE Subjective Overnight received 2U PRBC with appropriate response. I/O: Net positive 1.12L Diuresis: None Drips: Epinephrine, amiodarone Mechanical Support: Impella 5.5 [place] Numbers: RA 8, PA 29/12, CI of 2.1 Latest [facility] 08/06/2024: Successful LM-LAD PCI with SARAH x4 complicated by PEA arrest with CPR ~15 min before cannulated for VA ECMO; hemodynamic instability and PEA arrest thought to be secondary to high LVEDP/stunning during the case. Acute stent thrombosis secondary to stasis/no pulsatility on repeat angiography after cardiac arrest; successfully treated with PTCA. Occlusive R FIELD MARKETING TEAM LEADER (19Fr) cannula and L FIELD MARKETING TEAM LEADER (9Fr) sheath. DIESEL TRAILER MECHANIC of R SFA not amenable to antegrade sheath. Latest [facility] 07/30/2024: RA: Mean 4 mmHg RV 35/0 with RVEDP 5 mmHg PA 36/12 with mean of 22 mmHg PCWP estimated 12-14 mmHg Tucker: CO 3.4 L/min, CI 2.2 L/m2/min TTE 08/07/24: EF 35-40%, normal RV size and function, Impella 5.5 cm in LV cavity, no significant valvular abnormalities, trivial pericardial effusion. TTE 07/31/2024: Left Ventricle: Left ventricle size is normal. Findings consistent with eccentric hypertrophy. Mild global hypokinesis present. Mildly reduced systolic function with an estimated EF of 45 - 50%. Grade I diastolic dysfunction of the left ventricle. Apical thrombus is not present verified by the use of contrast. Right Ventricle: Right ventricle size is normal. Normal systolic function in the right ventricle. TAPSE is 19 mm. Pericardium: No pericardial effusion present. Duplex Arterial Ultrasound 08/06 IMPRESSION: 1. Right mid and distal SFA and proximal popliteal artery occlusion. Post occlusion reconstitution distal popliteal, posterior tibial, anterior tibial and dorsalis pedis arteries with low resistance low flow waveform. 2. Left mid and distal SFA occlusion with low resistance low flow with reconstitution within the proximal and distal popliteal, and anterior and posterior tibial and dorsalis pedis arteries. Objective Last Recorded Vitals Blood pressure 104/62, pulse 91, temperature 37.1 ?C (98.8 ?F), resp. rate (!) 34, height 1.61 m (5' 3.39"), weight 62.3 kg (137 lb 5.6 oz), SpO2 98%. Physical Exam:GEN: lying down comfortably, not in acute distress HEENT: normal conjuctivae, anicteric sclera neck: no JVD , supple, normal ROM CV: RRR s1s2 no mrg, pulse +2 resp: CTAB, no wheezing/crackles GI: soft, non tender MSK: no joint swelling or pain to palpation extremities: no edema, clubbing or cyanosis Neuro: AOx3, moving all extremities, speech normal Skin: no new rashes, bruises Assessment & PlanCardiac arrest (HCC) Shock ([facility]) ([facility]) -- S/p PCI x4 to LM-LAD c/b PEA arrest with 15 minutes of CPR and ECMO cannulation, finding of acute stent thrombosis s/p PTCA > with subsequent Impella 5.5 placement and decannulation of ECMO on 08/06/2024 -Wean pressors/Impella support as able -Pending follow up TTE Triple vessel coronary artery diseaseAcute non-ST elevation myocardial infarction (NSTEMI) ([facility]) ([facility]) - S/p PCI x4 to LM-LAD c/b PEA arrest with 15 minutes of CPR and ECMO cannulation, > with subsequent Impella 5.5 placement and decannulation of ECMO on 08/06/2024. - Lipids: continue atorvastatin 40 mg PO daily - Antiplatelet: continue aspirin 81 mg PO daily; brilinta 90 mg BID Tachy-sen syndrome (CMS/HCC) ([facility])- Likely ischemia-related; will reassess rhythm and rate status after re-vascularization - Continue telemetry monitoring while inpatient Atrial fibrillation with RVR (CMS/HCC) ([facility]) - Anticoagulation: heparin drip while hospitalized; DOAC after procedures/surgery -Continue amiodarone ggt for now. Compression fracture of T10 vertebra ([facility]) - Incidental finding noted on admission CT - No surgical intervention at this time per ortho spine team Peripheral vascular disease ([facility]) -Arterial doppler with evidence of PAD with distal reconstitution -9 [place] Sheath removed 08/07 Prediabetes - Sliding scale insulin + Current Diet: NPO DietCardiology Staff Attestation; I have seen and examined the patient with Dr. Velez on 08/08/2024 I have reviewed all the clinical information, lab investigations, radiographic and other imaging data. I agree with findings, assessment and plan as outlined. Treatment plan was formulated under my direct supervision. * Shahzad Rg PharmD - 08/07/2024 4:03 PM CDT Clinician Notes: Plan to start maintenance dose at vancomycin 750 mg IV Q12H Next vancomycin level before 2300 vancomycin dose Recommended Dose: 750 mg IV over 1 hour every 12 hours for 2 days Next Dose At: 23:20 on Aug 07 2024 Dosing Interval: 12 hours Infusion Length: 1 hours Dose Valid For: 2 days only Dose Recommendation Method: Population model Target Outcome: AUC24: 450 mcg.h/mL Predicted Outcome: AUC24: 416.27 mcg.h/mL Predicted Peak: 23.7 mcg/mL Predicted Trough: 12.1 mcg/mL Predicted AUC24: 416.3 mcg.h/mL Predicted AUC12: 208.1 mcg.h/mL * Pavan Mcguire MD - 08/07/2024 1:20 PM CDT HF Surgery Progress Note #Multivessel CAD with left main dx. #acute hypoxemic respiratory failure #Pulmonary edema #preop pulmonary edema #CHF #cellulitis #afib RVR #dm2 #htn #tobacco use PMH: 69 yo female w/ PMH including HTN, DM, CAD and tobacco abuse who was transferred to [facility] for revascularization after LHC at [facility] revealed multivessel disease with severe L main disease. Other relevant events at OSH included cellulitis 2/2 to spider bite and hypoxic respiratory failure requiring bipap, afib RVR and possible new diagnosis of CHF (EF 45-50%). Subjective: Day 1 on Impella 5.5, P6, 3.3 LPM. Yesterday high-risk PCI/SARAH x4, complicated by PEA, emergent vaECMO, due to in-stent thrombosis. Was emergently taken to OR for Impella placement, and vaEMCO removal. Has been improving since. Epi 3, rest weaned off. Initially high output SAGE drain impella site (500cc fist 12h), but stable since. Intubated still, PEEP 7. Hep 200, PTT 31. Neuro n ofocl deficits, follows commands. A/P: - wean off pressors - extubvate - ambulation w/ PT - then weaning off impella as tolerated Objective Last Recorded Vitals Blood pressure (!) 101/59, pulse 84, temperature 37.3 ?C (99.1 ?F), resp. rate 22, height 1.61 m (5' 3.39"), weight 61.3 kg (135 lb 2.3 oz), SpO2 99%. Ventricular Assist Device(VAD) Initial VAD Type: LVAD VAD Pump: Impella Impella Device: Impella 5.5 VAD Laterality: Left Pump Flow (L/min): 3.4 VAD P-Level: 6 Placement Signal: 109/67/79 Motor Current (mA): 323/252/287 Purge Flow (mL / hr): 11.4 Purge Pressures (mmHg): 451 Site Marker (cm): 43 Pertinent Labs : Lab Results Component Value Date WBC 22.21 (H) 08/07/2024 POC V Hgb Tot 8.8 (L) 08/07/2024 Hgb 8.6 (L) 08/07/2024 POC A Hct (calc) 28.0 (L) 08/07/2024 POC V Hct (calc) 26.0 (L) 08/07/2024 Hct 25.9 (L) 08/07/2024 Plt Count 444 (H) 08/07/2024 Lab Results Component Value Date POC V Na 135 08/07/2024 POC A Na 136 08/07/2024 Sodium Lvl 143 08/07/2024 POC V K 3.5 08/07/2024 POC A K 3.5 08/07/2024 Potassium Lvl 3.9 08/07/2024 POC V Cl 107 08/07/2024 POC Chloride 109 08/07/2024 Chloride Lvl 112 (H) 08/07/2024 CO2 Lvl 22.3 08/07/2024 BUN 17 08/07/2024 Creatinine Lvl 0.76 08/07/2024 POC V Glu 268 (H) 08/07/2024 POC A Glu 165 (H) 08/07/2024 Glucose Lvl 220 (H) 08/07/2024 POC Glu 133 (H) 08/07/2024 Lab Results Component Value Date Calcium Lvl 7.7 (L) 08/07/2024 Magnesium 2.31 08/07/2024 Phosphorus Lvl 1.7 (L) 08/07/2024 Lab Results Component Value Date AST 239 (H) 08/07/2024 ALT 149 (H) 08/07/2024 Alkaline Phosphatase 108 08/07/2024 Lab Results Component Value Date PTT 31.8 08/07/2024 Prothrombin Time (PT) 14.8 (H) 08/07/2024 INR 1.14 (H) 08/07/2024 Physical Exam: Constitutional: Interventions: She is sedated and intubated. HENT: Head: Atraumatic. Nose: Nose normal. Mouth/Throat: Mouth: Mucous membranes are moist. Eyes: Extraocular Movements: Extraocular movements intact. Conjunctiva/sclera: Conjunctivae normal. Cardiovascular: Rate and Rhythm: Normal rate and regular rhythm. Heart sounds: Normal heart sounds. Pulmonary: Effort: She is intubated. Abdominal: General: Bowel sounds are normal. Palpations: Abdomen is soft. Skin: General: Skin is warm. Capillary Refill: Capillary refill takes less than 2 seconds. Neurological: General: No focal deficit present. Psychiatric: Behavior: Behavior is cooperative. Assessment & PlanTriple vessel coronary artery disease Acute non-ST elevation myocardial infarction (NSTEMI) (CMS/HCC) (HCC) Tachy-sen syndrome (CMS/HCC) (HCC) Tobacco use disorder Peripheral vascular disease (HCC) Normocytic anemia Compression fracture of T10 vertebra (HCC) New onset of congestive heart failure (CMS/HCC) (HCC) Atrial fibrillation with RVR (CMS/HCC) (HCC) Prediabetes Diabetes mellitus (HCC) Coronary artery disease Cardiac arrest (HCC) Shock (CMS/HCC) (HCC) Current Diet: NPO Diet Cosigned by Jacques Mejia MD at 08/19/2024 10:51 PM CDT Associated attestation - Jacques Mejia MD - 08/19/2024 10:51 PM CDT I have seen and examined the patient with Fellow on 08/07/24 I have reviewed all the clinical information, lab investigations and imaging data. I agree with the above examination findings, assessment, and plan. I was present and supervised. * Dino Domínguez MD - 08/07/2024 8:34 AM CDT ID PULMONARY CRITICAL CARE MEDICINE - NoteType: PROGRESS NOTE Patient ID: SALBADOR is a 69 y.o. female. Chief Complaint: No chief complaint on file. Admission date: 07/31/2024 Referring Physician: Leila Lozano NP Reason for Consult: Reason For Consult: Critical care management Interval events Heparin is off Amio 0.5, epi at 3 No sedation Following commands Impella at p-6 at 3.4 Peripheral pulses intact ASSESSMENT/PLAN: Problem List: Principal Problem: Triple vessel coronary artery disease Active Problems: Acute non-ST elevation myocardial infarction (NSTEMI) (CMS/HCC) (HCC) Tachy-sen syndrome (CMS/HCC) (HCC) Tobacco use disorder Peripheral vascular disease (HCC) Normocytic anemia Compression fracture of T10 vertebra (HCC) Cardiac arrest (HCC) Shock (CMS/HCC) (HCC) New onset of congestive heart failure (CMS/HCC) (HCC) Atrial fibrillation with RVR (CMS/HCC) (HCC) Prediabetes Coronary artery disease Diabetes mellitus (HCC) Problem List[1] Principal Problem: Triple vessel coronary artery disease Active Problems: Acute non-ST elevation myocardial infarction (NSTEMI) (CMS/HCC) (HCC) Tachy-sen syndrome (CMS/HCC) (HCC) Tobacco use disorder Peripheral vascular disease (HCC) Normocytic anemia Acute hypoxic respiratory failure (HCC) New onset of congestive heart failure (CMS/HCC) (HCC) Atrial fibrillation with RVR (CMS/HCC) (HCC) Prediabetes Diabetes mellitus (HCC) #Multivessel CAD with left main dx. #acute hypoxemic respiratory failure #Pulmonary edema #preop pulmonary edema #CHF #cellulitis #afib RVR #dm2 #htn #tobacco use Assessment: 69 yo female w/ PMH including HTN, DM, CAD and tobacco abuse who was transferred to [facility] for revascularization after LHC at [facility] revealed multivessel disease with severe L main disease. Other relevant events at OSH included cellulitis 2/2 to spider bite and hypoxic respiratory failure requiring bipap, afib RVR and possible new diagnosis of CHF (EF 45-50%). Neuro/Psych: -Delirium precautions - off sedation now following commands - start pain meds: tylenol and robaxin, gabapentin CV: - LHC (07/30/24) notable for severe 80% LM disease, and severe multivessel disease. She declined CABG, plan is for high risk PCI - Cont. Asa and atorvastatin - MARQUES, mild global hypokinesis, reduced EF 45-50% and DCCV (07/30/24). - Amiodarone on hold given tachy sen syndrom, cont heparin gtt for afib - s/p impella 5.5, bridge to recovery - wean down epi gtt Resp: - wean supplemental oxygen, wean as tolerated to maintain spo2 >92% - CT chest (07/31)- Small bilateral pleural effusions, greater on the left. Dependent consolidative opacities with air bronchogram and surrounding groundglass in the bilateral lower lobes. Mild diffuse groundglass is associated with interlobular septal thickening. Scattered bilateral subsegmental atelectasis in both lungs. Minimal upper lobe predominant centrilobular emphysema. - PFT(07/31) - Restrictive ventilatory defect likely in setting of pulmonary edema and opacities seen on CT chest. - attempt PSV and SBT - CXR with small effusion GI/Nutrition:- keep NPO for now - swallow test after extubation - increase LFT due to cardiac arrest Renal/Electrolytes:- UOP is good, - Replace electrolytes per unit protocol - Monitor I/Os Endo: Lab ResultsComponent Value Date Hgb A1C 6.45 (H) 07/31/2024 TSH 1.224 07/28/2024 - BG goal 120 - 180, SSI as needed - insulin gtt for now Heme/Onc:-monitor For bleeding and coagulopathies - Transfuse to maintain hgb >7 - impella heparin gtt - discuss with cv surgery starting systemic heparin ID:- start broad spectrum abx given WBC and events yesterday - blood cultures and resp cultures Msk/Skin/Deconditioned:- Consult PT/OT. - Continue wound care and sacral decubitus prevention. To Do- SBT and extubation - abx - ICU quality> DVT prophylaxis: heparin gtt, SCD > PPI prophylaxis: start PPI > Nutrition/glucose control: SSI, BG 120-180 > Line and tubes: > Perkins catheter: indicated for critical illness > Sedation: off > Date of intubation: 08/06 > Restraints: placed This patient is critically ill. I spent 40 minutes of critical care time with this patient, not including procedure time Dino Domínguez MDUTH Pulmonary and Critical Care Medicine MSO# [id number] HISTORY OF PRESENT ILLNESS:NO Hampton is a 69 y.o. female with past medical history of hypertension, diabetes mellitus (on no meds), reported history of coronary artery disease and tobacco use, was transferred from [facility] after LHC revealed severe left main disease and multivessel disease. She was originally admitted for hand cellulitis after a spider bite, but during that hospital stay she had hypoxic respiratory failure requiring BiPAP, NSTEMI, possibly newly diagnosed CHF (EF 45-50%), and Afib w/ RVR. She underwent a MARQUES w/ cardioversion. LHC and RHC on 07/31/23 which showed normal filling pressures, LHC which showed 80% mid to distal LM lesion extending into the ostium of LAD, 60-70% mid LAD, diffuse LCx and OM disease, and 70-80% proximal to mid RCA disease. She was transferred to [facility] for revascularizaton. No data found. Enter data into the [facility] Mental Health Specialist navigator to see it here. Assessment & PlanAssessment & Plan Subjective INTERVAL EVENTS: [_]Temp (24hrs), Av.4 ?C (97.6 ?F), Min:36.2 ?C (97.2 ?F), Max:36.9 ?C (98.4 ?F) No data recordedI/O last 3 completed shifts: In: 2136 (34.9 mL/kg) [P.O.:50; I.V.:887 (14.5 mL/kg); Blood:350; IV Piggyback:850] Out: 2044 (33.4 mL/kg) [Urine:1470 (0.7 mL/kg/hr); Emesis/NG output:50; Drains:515; Blood:10] Weight: 61.3 kg Vent Mode: Volume targeted pressure limited/assist control FiO2 (%): 40 % S RR: 14 S VT: 370 mL PEEP/CPAP (cm H2O): 7 cm H2O [place] SUP: 8 cm H20 MAP (cm H2O): 11 MAP (cm H2O): 11 PIP: 20 cm H2O No data found.No data found. PAST MEDICAL HISTORY:Medical History[2] PAST SURGICAL HISTORY:Surgical History[3] FAMILY HISTORY:Family History[4] SOCIAL HISTORY:Social History Socioeconomic HistoryMarital status: Spouse name: Not on file Number of children: Not on file Years of education: Not on file Highest education level: Not on file Occupational History Not on file Tobacco Use Smoking status: Former Current packs/day: 0.00 Types: Cigarettes Quit date: 1967 Years since quittin.2 Smokeless tobacco: Current Tobacco comments: PATIENT VERBALIZED "WELL NOW THAT I AM IN THE HOSPITAL, I CAN'T REALLY SMOKE Vaping Use Vaping status: Not on file Substance and Sexual Activity Alcohol use: Yes Alcohol/week: 6.0 standard drinks of alcohol Types: 6 Cans of beer per week Comment: [place] EVERYOTHER WEEKEND Drug use: Never Sexual activity: Not Currently Other Topics Concern Not on file Social History Narrative Not on file Social Drivers of Health Financial Resource Strain: Not on fileFood Insecurity: No Food Insecurity (07/31/2024) Hunger Vital Sign Worried About Running Out of Food in the Last Year: Never true Ran Out of Food in the Last Year: Never true Transportation Needs: No Transportation Needs (07/31/2024) PRAPARE - Transportation Lack of Transportation (Medical): No Lack of Transportation (Non-Medical): No Physical Activity: Not on file Stress: Not on file Social Connections: Not on file Intimate Partner Violence: Not At Risk (07/31/2024) Humiliation, Afraid, Rape, and Kick questionnaire Fear of Current or Ex-Partner: No Emotionally Abused: No Physically Abused: No Sexually Abused: No Housing Stability: Low Risk (07/31/2024) Housing Stability Vital Sign Unable to Pay for Housing in the Last Year: No Number of Times Moved in the Last Year: 0 Homeless in the Last Year: No ALLERGIES: Allergies[5] HOME MEDICATIONS:Medication Documentation Review Audit Reviewed by Sohail Garsia RN (Registered Nurse) on 08/01/24 at 1012 Medication Order Taking? Sig Documenting Provider Last Dose Statusevolocumab (Repatha SureClick) 140 MG/ML Subcutaneous Solution Auto-injector [id number] Inject 1 mL under the skin every 14 days. Leila Lozano NP Active [Held by provider] amiodarone, 200 mg, Oral, BID artificial tears, 1 Application, Both Eyes, q6h DARYL aspirin EC, 81 mg, Oral, Daily And ticagrelor, 90 mg, Oral, q12h DARYL atorvastatin, 40 mg, Oral, Daily chlorhexidine, 15 mL, Mouth/Throat, 4x daily polyethylene glycol (PEG) 3350, 17 g, Oral, Daily potassium phosphate, 30 mmol, Intravenous, Once sennosides, 1 tablet, Oral, BID sodium bicarbonate, 50 mEq, Intravenous, Once amiodarone, 0.5 mg/min, Last Rate: 0.5 mg/min (08/07/24 0400)amiodarone in D5W 500 mL, , Last Rate: 1 mg/min (08/06/24 1824) EPINEPHrine, , Last Rate: 3 mcg/min (08/06/24 1909) EPINEPHrine, 3 mcg/min, Last Rate: 3 mcg/min (08/06/242199) fentaNYL, 50-200 mcg/hr, Last Rate: 50 mcg/hr (08/06/24 2320) heparin 12,500 Units in dextrose 5 % 500 mL infusion, , Last Rate: 11.4 mL/hr at 08/06/24 220 [Held by provider] heparin, 0.1-40 Units/kg/hr, Last Rate: 20 Units/kg/hr (08/06/24 1300) insulin regular, 0-35 Units/hr, Last Rate: 9.72 Units/hr (08/07/24 0000) norepinephrine, , Last Rate: Stopped (08/06/24 1939) potassium chloride, , Last Rate: 20 mEq (08/06/24 1727) sodium chloride, , Last Rate: 500 mL (08/06/24 1605) PRN medications: amiodarone in D5W 500 mL, calcium gluconate, chlorhexidine, dextrose, dextrose, EPINEPHrine, glucagon, magnesium sulfate, norepinephrine, potassium & sodium phosphates OR potassium & sodium phosphates, potassium chloride OR potassium chloride OR potassium chloride OR Potassium chloride, potassium chloride, sodium chloride, sodium chloride, sodium chloride, sodium chloride, sodium phosphates 45 mmol in sodium chloride 0.9 % 100 mL IVPB PHYSICAL EXAM:Gen: intubated, sedated Neuro: No focal deficits appreciated HEENT: PERRL; EOMI; No scleral icterus CV/Pulses: PE_CV: RRR; 2+ peripheral pulses Pulm: Decreased breath sounds at the bases; No wheezing GI: BS (+); Soft; NTND : Deferred MS: Tone intact Skin/Ext: No changes in lesions; 1+ pitting edema LABS:Pertinent Labs : Lab Results Component Value Date WBC 22.21 (H) 08/07/2024 POC V Hgb Tot 8.8 (L) 08/07/2024 Hgb 8.6 (L) 08/07/2024 POC A Hct (calc) 28.0 (L) 08/07/2024 POC V Hct (calc) 26.0 (L) 08/07/2024 Hct 25.9 (L) 08/07/2024 Plt Count 444 (H) 08/07/2024 Lab ResultsComponent Value Date POC V Na 135 08/07/2024 POC A Na 136 08/07/2024 Sodium Lvl 143 08/07/2024 POC V K 3.5 08/07/2024 POC A K 3.5 08/07/2024 Potassium Lvl 3.9 08/07/2024 POC V Cl 107 08/07/2024 POC Chloride 109 08/07/2024 Chloride Lvl 112 (H) 08/07/2024 CO2 Lvl 22.3 08/07/2024 BUN 17 08/07/2024 Creatinine Lvl 0.76 08/07/2024 POC V Glu 268 (H) 08/07/2024 POC A Glu 165 (H) 08/07/2024 Glucose Lvl 220 (H) 08/07/2024 POC Glu 174 (H) 08/07/2024 Lab ResultsComponent Value Date Calcium Lvl 7.7 (L) 08/07/2024 Magnesium 2.31 08/07/2024 Phosphorus Lvl 1.7 (L) 08/07/2024 Lab ResultsComponent Value Date AST 239 (H) 08/07/2024 ALT 149 (H) 08/07/2024 Alkaline Phosphatase 108 08/07/2024 Lab ResultsComponent Value Date PTT 69.7 (H) 08/07/2024 Prothrombin Time (PT) 15.9 (H) 08/07/2024 INR 1.25 (H) 08/07/2024 No results found for: "COLORU", "CLARITYU", "SPECGRAV", "PHUR", "PROTUR", "GLUCOSEU", "KETONESU", "NITRITEU", "LEUKOCYTESUR", "BILIRUBINUR", "UROBILINOGEN" No results found for: "CK", "TROPONINT", "TROPONINI", "BNP" IMAGING:@IMAGES@ EKG:Encounter Date: 07/31/24 ECG 12 lead Result Value Ventricular Rate 66 Atrial Rate 66 WY Interval 132 QRS Duration 70 QT/QTc 418 QTc Calculation 438 P-Dayton 24 R-Dayton -27 T-Dayton 32 Impression SINUS RHYTHM NORMAL ECG WHEN COMPARED WITH ECG OF 30-JUL-2024 14:12, SINUS RHYTHM HAS REPLACED ATRIAL FIBRILLATION RATE HAS DECREASED CRITERIA FOR ANTERIOR INFARCTION NO LONGER PRESENT Confirmed by Jaiden Liriano ([id number]) on 07/31/2024 5:22:03 PM ECHO: Transthoracic echo (TTE) complete 07/31/2024 Interpretation SummaryLeft Ventricle: Left ventricle size is normal. Findings consistent with eccentric hypertrophy. Mild global hypokinesis present. Mildly reduced systolic function with an estimated EF of 45 - 50%. Grade I diastolic dysfunction of the left ventricle. Apical thrombus is not present verified by the use of contrast. Right Ventricle: Right ventricle size is normal. Normal systolic function in the right ventricle. TAPSE is 19 mm. Pericardium: No pericardial effusion present. Transesophageal echo (MARQUES) with possible cardioversion 07/30/2024 Interpretation SummaryLeft Ventricle: Left ventricle size is normal. Mild global hypokinesis present. Reduced systolic function with an estimated EF of 45 - 50%. Right Ventricle: Right ventricle size is normal. Normal systolic function in the right ventricle. Left Atrium: Normal sized left atrial appendage. No thrombus in left atrium present. Transthoracic echo (TTE) complete 07/28/2024 Interpretation SummaryPatient is in atrial fibrillation with RVR at the time of this study. LV systolic function assessment is suboptimal. Left Ventricle: Left ventricle size is normal. Mild global hypokinesis present. Mildly reduced systolic function with an estimated EF of 45 - 50%. Right Ventricle: Right ventricle size is normal. Normal systolic function in the right ventricle. Left Atrium: Left atrium is moderately dilated. Mitral Valve: Moderate mitral regurgitation present. Tricuspid Valve: Mild to moderate tricuspid regurgitation present. Mild to moderate pulmonary hypertension present. RVSP is 46.00 mmHg. Pericardium: Trivial pericardial effusion present. Left pleural effusion present. [1] Patient Active Problem List Diagnosis New onset of congestive heart failure (CMS/HCC) (HCC) Cellulitis Atrial fibrillation with RVR (CMS/HCC) (HCC) Prediabetes Elevated troponin Hypertension Tobacco use Coronary artery disease Hyponatremia Hyperglycemia Pulmonary edema cardiac cause (CMS/HCC) (HCC) Triple vessel coronary artery disease Acute non-ST elevation myocardial infarction (NSTEMI) (CMS/HCC) (HCC) Tachy-sen syndrome (CMS/HCC) (HCC) Tobacco use disorder Peripheral vascular disease (HCC) Normocytic anemia Diabetes mellitus (HCC) Compression fracture of T10 vertebra (HCC) Cardiac arrest (HCC) Shock (CMS/HCC) (HCC) [2] Past Medical History: Diagnosis Date Diabetes mellitus (HCC) PATIENT CLAIMED THAT SHE HAS DIABETES [3] History reviewed. No pertinent surgical history. [4] Family History: Problem Relation Name Age of Onset Diabetes Mother No Known Problems Father [5] No Known Allergies * Orestes Agrawal MD - 08/07/2024 7:32 AM CDT AHF ICU PROGRESS NOTE Subjective I/O: Net positive 82 ml. Diuresis: None Drips: Epinephrine, amiodarone Mechanical Support: Impella 5.5 [place] Numbers: RA 8, PA 29/12, CI of 2.1 TTE 07/31/2024: Left Ventricle: Left ventricle size is normal. Findings consistent with eccentric hypertrophy. Mild global hypokinesis present. Mildly reduced systolic function with an estimated EF of 45 - 50%. Grade I diastolic dysfunction of the left ventricle. Apical thrombus is not present verified by the use of contrast. Right Ventricle: Right ventricle size is normal. Normal systolic function in the right ventricle. TAPSE is 19 mm. Pericardium: No pericardial effusion present. Latest [facility] 08/06/2024: Successful LM-LAD PCI with SARAH x4 complicated by PEA arrest with CPR ~15 min before cannulated for VA ECMO; hemodynamic instability and PEA arrest thought to be secondary to high LVEDP/stunning during the case. Acute stent thrombosis secondary to stasis/no pulsatility on repeat angiography after cardiac arrest; successfully treated with PTCA. Occlusive R FIELD MARKETING TEAM LEADER (19Fr) cannula and L FIELD MARKETING TEAM LEADER (9Fr) sheath. DIESEL TRAILER MECHANIC of R SFA not amenable to antegrade sheath. Latest C 07/30/2024: RA: Mean 4 mmHg RV 35/0 with RVEDP 5 mmHg PA 36/12 with mean of 22 mmHg PCWP estimated 12-14 mmHg Tucker: CO 3.4 L/min, CI 2.2 L/m2/min Objective Last Recorded Vitals Blood pressure (!) 72/68, pulse 77, temperature 36.7 ?C (98.1 ?F), resp. rate (!) 45, height 1.61 m (5' 3.39"), weight 61.3 kg (135 lb 2.3 oz), SpO2 100%. Physical Exam: GEN: lying down comfortably, not in acute distress HEENT: normal conjuctivae, anicteric sclera neck: no JVD , supple, normal ROM CV: RRR s1s2 no mrg, pulse +2 resp: CTAB, no wheezing/crackles GI: soft, non tender MSK: no joint swelling or pain to palpation extremities: no edema, clubbing or cyanosis Neuro: AOx3, moving all extremities, speech normal Skin: no new rashes, bruises Assessment & Plan Cardiac arrest (HCC) Shock (CMS/HCC) ([facility]) -- S/p PCI x4 to LM-LAD c/b PEA arrest with 15 minutes of CPR and ECMO cannulation, finding of acute stent thrombosis s/p PTCA > with subsequent Impella 5.5 placement and decannulation of ECMO on 08/06/2024 -Wean pressors/Impella support as able -Pending follow up TTE Triple vessel coronary artery disease Acute non-ST elevation myocardial infarction (NSTEMI) (CMS/HCC) ([facility]) - S/p PCI x4 to LM-LAD c/b PEA arrest with 15 minutes of CPR and ECMO cannulation, > with subsequent Impella 5.5 placement and decannulation of ECMO on 08/06/2024. - Lipids: continue atorvastatin 40 mg PO daily - Antiplatelet: continue aspirin 81 mg PO daily; brilinta 90 mg BID Tachy-sen syndrome (CMS/HCC) ([facility]) - Likely ischemia-related; will reassess rhythm and rate status after re-vascularization - Continue telemetry monitoring while inpatient Atrial fibrillation with RVR (CMS/HCC) ([facility]) - Anticoagulation: heparin drip while hospitalized; DOAC after procedures/surgery -Continue amiodarone ggt for now. Compression fracture of T10 vertebra ([facility]) - Incidental finding noted on admission CT - No surgical intervention at this time per ortho spine team Peripheral vascular disease ([facility]) - Follow up arterial doppler ultrasound Prediabetes - Sliding scale insulin + Current Diet: NPO Diet Cardiology Staff Attestation; I have seen and examined the patient with Dr. Velez on 08/07/2024 I have reviewed all the clinical information, lab investigations, radiographic and other imaging data. I agree with findings, assessment and plan as outlined. Treatment plan was formulated under my direct supervision. * Velvet Diaz NP - 08/07/2024 1:07 AM CDT Back from OR at 2157 intubated with Impella 5.5 at P6 flowing at 3.4 lpm. Per anesthesia report, EF < 25%, akinetic inferolateral wall, had increased MR but upon increasing Impella to P7 had suction so back to P6. Initial gtts included epi 3 and amio 1. Intra-op received 1 PRBC for hgb 7.7. Initial vitals on unit were SR 65, BP 85/73 (MAP 77), CVP 12, PAP 34/16, CO/CI 3.7/2.4. Was able to wake and follow commands. Started on low-dose fentanyl. Oozing from impeller insertion site and 40-60 ml/hr of sanguinous SAGE output but initial coags ok other than supratherapeutic PTT. No systemic heparin tonight per surgery. Plan to keep epi between 2-3 mcg/min per surgery. * Wendy Xie - 08/06/2024 8:30 PM CDT The Impella 5.5 was primed and prepped before the implant according to the manufacture recommendation and specification. * Chito Brown NP - 08/06/2024 1:15 PM CDT ID PULMONARY CRITICAL CARE MEDICINE - NoteType: PROGRESS NOTE Patient ID: @[email or web address]@ is a 69 y.o. female. Chief Complaint: No chief complaint on file. Admission date: 07/31/2024 Referring Physician: Leila Lozano NP Reason for Consult: Reason For Consult: Critical care management ASSESSMENT/PLAN: Problem List: Principal Problem: Triple vessel coronary artery disease Active Problems: Acute non-ST elevation myocardial infarction (NSTEMI) (CMS/HCC) ([facility]) Tachy-sen syndrome (CMS/HCC) ([facility]) Tobacco use disorder Peripheral vascular disease ([facility]) Normocytic anemia Compression fracture of T10 vertebra ([facility]) New onset of congestive heart failure (CMS/HCC) ([facility]) Atrial fibrillation with RVR (CMS/HCC) ([facility]) Prediabetes Coronary artery disease Diabetes mellitus ([facility]) Problem List[1] Principal Problem: Triple vessel coronary artery disease Active Problems: Acute non-ST elevation myocardial infarction (NSTEMI) (CMS/HCC) ([facility]) Tachy-sen syndrome (CMS/HCC) ([facility]) Tobacco use disorder Peripheral vascular disease (HCC) Normocytic anemia Acute hypoxic respiratory failure (HCC) New onset of congestive heart failure (CMS/HCC) ([facility]) Atrial fibrillation with RVR (CMS/HCC) (HCC) Prediabetes Diabetes mellitus (HCC) #Multivessel CAD with left main dx. #acute hypoxemic respiratory failure #Pulmonary edema #preop pulmonary edema #CHF #cellulitis #afib RVR #dm2 #htn #tobacco use Assessment: 69 yo female w/ PMH including HTN, DM, CAD and tobacco abuse who was transferred to [facility] for revascularization after LHC at [facility] revealed multivessel disease with severe L main disease. Other relevant events at OSH included cellulitis 2/2 to spider bite and hypoxic respiratory failure requiring bipap, afib RVR and possible new diagnosis of CHF (EF 45-50%). Neuro/Psych: -Delirium precautions -Out of bed to chair as tolerated. Continue PT/OT -Monitor for signs of pain CV: Lab Results Component Value Date Pro BNP 17,963 (H) 07/28/2024 - [facility] (07/30/24) notable for severe 80% LM disease, and severe multivessel disease. She declined CABG, plan is for high risk PCI - Cont. Asa and atorvastatin - MARQUES, mild global hypokinesis, reduced EF 45-50% and DCCV (07/30/24). - Amiodarone on hold given tachy sen syndrom, cont heparin gtt for afib -avoid BB, tachy sen syndrome likely ischemic per cardiology. Cont. To monitor Resp: - wean supplemental oxygen, wean as tolerated to maintain spo2 >92% - CT chest (07/31)- Small bilateral pleural effusions, greater on the left. Dependent consolidative opacities with air bronchogram and surrounding groundglass in the bilateral lower lobes. Mild diffuse groundglass is associated with interlobular septal thickening. Scattered bilateral subsegmental atelectasis in both lungs. Minimal upper lobe predominant centrilobular emphysema. - PFT(07/31) - Restrictive ventilatory defect likely in setting of pulmonary edema and opacities seen on CT chest. GI/Nutrition:- Diet: AHA - Continue bowel regimen - PPI not indicated Renal/Electrolytes:- Renal fxn normal - Replace electrolytes per unit protocol - Monitor I/Os Endo: Lab ResultsComponent Value Date Hgb A1C 6.45 (H) 07/31/2024 TSH 1.224 07/28/2024 - BG goal 120 - 180, SSI as needed Heme/Onc:-monitor For bleeding and coagulopathies - Transfuse to maintain hgb >7 - Heparin gtt ID:- S/p 5 day course of Unasyn for Cellulitis at OSH - Monitor off abx for now Msk/Skin/Deconditioned:- Consult PT/OT. - Continue wound care and sacral decubitus prevention. - ICU quality> DVT prophylaxis: heparin gtt > PPI prophylaxis: not indicated > Nutrition/glucose control: SSI, BG 120-180 > Line and tubes: - Peripherals > Perkins catheter: n/a > Sedation: n/a > Date of intubation: n/a > Restraints: n/a Discussed with RHIANNON Sow Advanced practice provider [facility] | [facility] I spent a total of 20 minutes of critical care time with this patient independently, not including procedure time then plan was discussed with Dr. Ledesma HISTORY OF PRESENT ILLNESS:NO Hampton is a 69 y.o. female with past medical history of hypertension, diabetes mellitus (on no meds), reported history of coronary artery disease and tobacco use, was transferred from [facility] after C revealed severe left main disease and multivessel disease. She was originally admitted for hand cellulitis after a spider bite, but during that hospital stay she had hypoxic respiratory failure requiring BiPAP, NSTEMI, possibly newly diagnosed CHF (EF 45-50%), and Afib w/ RVR. She underwent a MARQUES w/ cardioversion. LHC and RHC on 07/31/23 which showed normal filling pressures, LHC which showed 80% mid to distal LM lesion extending into the ostium of LAD, 60-70% mid LAD, diffuse LCx and OM disease, and 70-80% proximal to mid RCA disease. She was transferred to [facility] for revascularizaton. No data found. Enter data into the [facility] Mental Health Specialist navigator to see it here. Assessment & PlanAssessment & Plan Subjective INTERVAL EVENTS: [_]Temp (24hrs), Av.1 ?C (98.7 ?F), Min:36.9 ?C (98.4 ?F), Max:37.2 ?C (98.9 ?F) No data recordedI/O last 3 completed shifts: In: 1770.3 (31.7 mL/kg) [P.O.:675; I.V.:810.3 (14.5 mL/kg); Blood:285] Out: 1700 (30.4 mL/kg) [Urine:1700 (0.8 mL/kg/hr)] Weight: 55.9 kg No data found.No data found. PAST MEDICAL HISTORY:Medical History[2] PAST SURGICAL HISTORY:Surgical History[3] FAMILY HISTORY:Family History[4] SOCIAL HISTORY:Social History Socioeconomic HistoryMarital status: Spouse name: Not on file Number of children: Not on file Years of education: Not on file Highest education level: Not on file Occupational History Not on file Tobacco Use Smoking status: Former Current packs/day: 0.00 Types: Cigarettes Quit date: 1967 Years since quittin.2 Smokeless tobacco: Current Tobacco comments: PATIENT VERBALIZED "WELL NOW THAT I AM IN THE HOSPITAL, I CAN'T REALLY SMOKE Vaping Use Vaping status: Not on file Substance and Sexual Activity Alcohol use: Yes Alcohol/week: 6.0 standard drinks of alcohol Types: 6 Cans of beer per week Comment: [place] EVERYOTHER WEEKEND Drug use: Never Sexual activity: Not Currently Other Topics Concern Not on file Social History Narrative Not on file Social Drivers of Health Financial Resource Strain: Not on fileFood Insecurity: No Food Insecurity (07/31/2024) Hunger Vital Sign Worried About Running Out of Food in the Last Year: Never true Ran Out of Food in the Last Year: Never true Transportation Needs: No Transportation Needs (07/31/2024) PRAPARE - Transportation Lack of Transportation (Medical): No Lack of Transportation (Non-Medical): No Physical Activity: Not on file Stress: Not on file Social Connections: Not on file Intimate Partner Violence: Not At Risk (07/31/2024) Humiliation, Afraid, Rape, and Kick questionnaire Fear of Current or Ex-Partner: No Emotionally Abused: No Physically Abused: No Sexually Abused: No Housing Stability: Low Risk (07/31/2024) Housing Stability Vital Sign Unable to Pay for Housing in the Last Year: No Number of Times Moved in the Last Year: 0 Homeless in the Last Year: No ALLERGIES: Allergies[5] HOME MEDICATIONS:Medication Documentation Review Audit Reviewed by Sohail Garsia RN (Registered Nurse) on 08/01/24 at 1012 Medication Order Taking? Sig Documenting Provider Last Dose Statusevolocumab (Repatha SureClick) 140 MG/ML Subcutaneous Solution Auto-injector [id number] Inject 1 mL under the skin every 14 days. Leila Lozano NP Active [Held by provider] amiodarone, 200 mg, Oral, BID aspirin, 81 mg, Oral, Daily atorvastatin, 40 mg, Oral, Daily polyethylene glycol (PEG) 3350, 17 g, Oral, Daily sennosides, 1 tablet, Oral, BID sodium chloride, 10 mL, Intravenous, q12h DARYL heparin, 0.1-40 Units/kg/hr, Last Rate: 20 Units/kg/hr (08/06/24 1100) PRN medications: calcium gluconate, dextrose, dextrose, glucagon, insulinlispro, magnesium sulfate, potassium & sodium phosphates OR potassium & sodium phosphates, potassium chloride OR potassium chloride OR potassium chloride OR Potassium chloride, sodium chloride, sodium phosphates 45 mmol in sodium chloride 0.9 % 100 mL IVPB PHYSICAL EXAM:Gen: PE_Gen: AAOx3; NAD Neuro: No focal deficits appreciated HEENT: PERRL; EOMI; No scleral icterus CV/Pulses: PE_CV: RRR; 2+ peripheral pulses Pulm: Decreased breath sounds at the bases; No wheezing GI: BS (+); Soft; NTND : Deferred MS: Tone intact Skin/Ext: No changes in lesions; 1+ pitting edema LABS:Pertinent Labs : Lab Results Component Value Date WBC 10.36 08/06/2024 Hgb 9.0 (L) 08/06/2024 Hct 27.9 (L) 08/06/2024 Plt Count 531 (H) 08/06/2024 Lab ResultsComponent Value Date Sodium Lvl 136 08/06/2024 Potassium Lvl 4.1 08/06/2024 Chloride Lvl 103 08/06/2024 CO2 Lvl 25.5 08/06/2024 BUN 13 08/06/2024 Creatinine Lvl 0.69 08/06/2024 Glucose Lvl 166 (H) 08/06/2024 Lab ResultsComponent Value Date Calcium Lvl 8.2 (L) 08/06/2024 Magnesium 1.89 08/06/2024 Phosphorus Lvl 3.8 08/06/2024 Lab ResultsComponent Value Date AST 26 08/05/2024 ALT 28 08/05/2024 Alkaline Phosphatase 91 08/05/2024 Lab ResultsComponent Value Date PTT 73.0 (H) 08/06/2024 No results found for: "COLORU", "CLARITYU", "SPECGRAV", "PHUR", "PROTUR", "GLUCOSEU", "KETONESU", "NITRITEU", "LEUKOCYTESUR", "BILIRUBINUR", "UROBILINOGEN" No results found for: "CK", "TROPONINT", "TROPONINI", "BNP" IMAGING:@IMAGES@ EKG:Encounter Date: 07/31/24 ECG 12 lead Result Value Ventricular Rate 66 Atrial Rate 66 W[place] Interval 132 QRS Duration 70 QT/QTc 418 QTc Calculation 438 P-Dayton 24 R-Dayton -27 T-Dayton 32 Impression SINUS RHYTHM NORMAL ECG WHEN COMPARED WITH ECG OF 30-JUL-2024 14:12, SINUS RHYTHM HAS REPLACED ATRIAL FIBRILLATION RATE HAS DECREASED CRITERIA FOR ANTERIOR INFARCTION NO LONGER PRESENT Confirmed by Jaiden Liriano ([id number]) on 07/31/2024 5:22:03 PM ECHO: Transthoracic echo (TTE) complete 07/31/2024 Interpretation SummaryLeft Ventricle: Left ventricle size is normal. Findings consistent with eccentric hypertrophy. Mild global hypokinesis present. Mildly reduced systolic function with an estimated EF of 45 - 50%. Grade I diastolic dysfunction of the left ventricle. Apical thrombus is not present verified by the use of contrast. Right Ventricle: Right ventricle size is normal. Normal systolic function in the right ventricle. TAPSE is 19 mm. Pericardium: No pericardial effusion present. Transesophageal echo (MARQUES) with possible cardioversion 07/30/2024 Interpretation SummaryLeft Ventricle: Left ventricle size is normal. Mild global hypokinesis present. Reduced systolic function with an estimated EF of 45 - 50%. Right Ventricle: Right ventricle size is normal. Normal systolic function in the right ventricle. Left Atrium: Normal sized left atrial appendage. No thrombus in left atrium present. Transthoracic echo (TTE) complete 07/28/2024 Interpretation SummaryPatient is in atrial fibrillation with RVR at the time of this study. LV systolic function assessment is suboptimal. Left Ventricle: Left ventricle size is normal. Mild global hypokinesis present. Mildly reduced systolic function with an estimated EF of 45 - 50%. Right Ventricle: Right ventricle size is normal. Normal systolic function in the right ventricle. Left Atrium: Left atrium is moderately dilated. Mitral Valve: Moderate mitral regurgitation present. Tricuspid Valve: Mild to moderate tricuspid regurgitation present. Mild to moderate pulmonary hypertension present. RVSP is 46.00 mmHg. Pericardium: Trivial pericardial effusion present. Left pleural effusion present. [1] Patient Active Problem List Diagnosis New onset of congestive heart failure (CMS/HCC) (HCC) Cellulitis Atrial fibrillation with RVR (CMS/HCC) (HCC) Prediabetes Elevated troponin Hypertension Tobacco use Coronary artery disease Hyponatremia Hyperglycemia Pulmonary edema cardiac cause (CMS/HCC) (HCC) Triple vessel coronary artery disease Acute non-ST elevation myocardial infarction (NSTEMI) (CMS/HCC) (HCC) Tachy-sen syndrome (CMS/HCC) (HCC) Tobacco use disorder Peripheral vascular disease (HCC) Normocytic anemia Diabetes mellitus (HCC) Compression fracture of T10 vertebra (HCC) [2] Past Medical History: Diagnosis Date Diabetes mellitus (HCC) PATIENT CLAIMED THAT SHE HAS DIABETES [3] History reviewed. No pertinent surgical history. [4] Family History: Problem Relation Name Age of Onset Diabetes Mother No Known Problems Father [5] No Known Allergies Cosigned by Jackson Ledesma MD at 08/06/2024 3:05 PM CDT * Tino Pickens RN - 08/06/2024 12:21 PM CDT CASE MANAGEMENT ROUTINE DISCHARGE PLAN NOTE LOS: 6 Barriers to Discharge: Heparin drip. PCI today. DISCHARGE PLAN A: Home DISCHARGE PLAN B: n/a MILENA: 2-3 days * Orestes Agrawal MD - 08/06/2024 8:51 AM CDT F ICU PROGRESS NOTE Subjective No acute events overnight. Objective Last Recorded Vitals Blood pressure (!) 123/58, pulse 68, temperature 37.2 ?C (98.9 ?F), resp. rate (!) 30, height 1.61 m (5' 3.39"), weight 55.9 kg (123 lb 3.8 oz), SpO2 97%. Physical Exam: GEN: lying down comfortably, not in acute distress HEENT: normal conjuctivae, anicteric sclera neck: no JVD , supple, normal ROM CV: RRR s1s2 no mrg, pulse +2 resp: CTAB, no wheezing/crackles GI: soft, non tender MSK: no joint swelling or pain to palpation extremities: no edema, clubbing or cyanosis Neuro: AOx3, moving all extremities, speech normal Skin: no new rashes, bruises TTE: Left Ventricle: Left ventricle size is normal. Findings consistent with eccentric hypertrophy. Mild global hypokinesis present. Mildly reduced systolic function with an estimated EF of 45 - 50%. Grade I diastolic dysfunction of the left ventricle. Apical thrombus is not present verified by the use of contrast. Right Ventricle: Right ventricle size is normal. Normal systolic function in the right ventricle. TAPSE is 19 mm. Pericardium: No pericardial effusion present. Assessment & Plan Triple vessel coronary artery disease Acute non-ST elevation myocardial infarction (NSTEMI) ([facility]) ([facility]) - No chest pain - Lipids: continue atorvastatin 40 mg PO daily - Antiplatelet: continue aspirin 81 mg PO daily; no P2Y12 inhibitor for now until we finalize intervention plans -Patient preferring PCI at this time instead of CABG, will post for PCI today -Per cath team, patient did not tolerate ballooning to prepare vessel for PCI (hypotensive episodes to 40s) -PCI complicated by cardiac arrest (PEA arrest) s/p ECMO cannulation, with plans to take patient to OR for Impella 5.5 (unable to do CP Impella due to PAD), informed patient's daughter Eula > family will arrive later tonight. New onset of congestive heart failure ([facility]) ([facility]) - Repeat TTE reviewed; will look to start guideline therapy after workup plan is finalized for CABG vs. Multi-vessel PCI - Currently euvolemic and not in decompensated state Tachy-sen syndrome ([facility]) ([facility]) - Likely ischemia-related; will reassess rhythm and rate status after re-vascularization - Continue telemetry monitoring while inpatient Atrial fibrillation with RVR ([facility]) ([facility]) - Anticoagulation: heparin drip while hospitalized; DOAC after procedures/surgery - Rhythm control: HOLD amiodarone for now - Rate control: holding for low HR and soft blood pressure Compression fracture of T10 vertebra ([facility]) - Incidental finding noted on admission CT - No surgical intervention at this time per ortho spine team Peripheral vascular disease ([facility]) - Follow up arterial doppler ultrasound - Consider carotid ultrasound if considering CABG - Statin and antiplatelets as above (see CAD section) Prediabetes - Sliding scale insulin + Anemia -Possible dilutional component; will repeat CBC in early AM and plan for 1 unit PRBC 08/04/2024 Coronary artery disease Current Diet: NPO Diet NPO except: Sips with meds Cardiology Staff Attestation; I have seen and examined the patient with Dr. Velez on 08/06/2024 I have reviewed all the clinical information, lab investigations, radiographic and other imaging data. I agree with findings, assessment and plan as outlined. Treatment plan was formulated under my direct supervision. * Jackson Ledesma MD - 08/05/2024 9:29 AM CDT PCCM Attending Note Acute events overnight: None Diagnosis: #Multivessel CAD with left main dx. #acute hypoxemic respiratory failure #Pulmonary edema #preop pulmonary edema #CHF #cellulitis #afib RVR #dm2 #htn #tobacco use Assessment: MARQUES, mild global hypokinesis, reduced EF 45-50% and DCCV (07/30/24) LHC (07/30/24) notable for severe 80% LM disease, and severe multivessel disease Worsening leukocytosis -> no fever Plan: Oxygen by [place] Delirium precautions Aspirin and statin High risk PCI vs CABG eval ongoing PO amiodarone SSI Diet Continue wound care and sacral decubitus prevention Hemodynamic medication This patient is critically ill due to presenting with an illness that impairs one or more vital organ systems. There was a high probability of imminent or life threatening deterioration in the patient's condition. I spent 35 min min min cumulative minutes of non-concurrent critical care time directly related to this individual patient's care involving the evaluation, coordination, and management of the patient. This includes only time spent at the immediate bedside or elsewhere on the patient's floor or unit coordinating this patient's care and is not inclusive of any time spent performing invasive procedures. Jackson Ledesma MD Critical Care Medicine * Hugo Diaz MD - 08/05/2024 8:20 AM CDT [facility] ICU PROGRESS NOTE Subjective No acute events overnight. Objective Last Recorded Vitals Blood pressure (!) 120/55, pulse 63, temperature 36.9 ?C (98.4 ?F), resp. rate (!) 31, height 1.61 m (5' 3.39"), weight 55.9 kg (123 lb 3.8 oz), SpO2 94%. Physical Exam: GEN: lying down comfortably, not in acute distress HEENT: normal conjuctivae, anicteric sclera neck: no JVD , supple, normal ROM CV: RRR s1s2 no mrg, pulse +2 resp: CTAB, no wheezing/crackles GI: soft, non tender MSK: no joint swelling or pain to palpation extremities: no edema, clubbing or cyanosis Neuro: AOx3, moving all extremities, speech normal Skin: no new rashes, bruises TTE: Left Ventricle: Left ventricle size is normal. Findings consistent with eccentric hypertrophy. Mild global hypokinesis present. Mildly reduced systolic function with an estimated EF of 45 - 50%. Grade I diastolic dysfunction of the left ventricle. Apical thrombus is not present verified by the use of contrast. Right Ventricle: Right ventricle size is normal. Normal systolic function in the right ventricle. TAPSE is 19 mm. Pericardium: No pericardial effusion present. Assessment & Plan Triple vessel coronary artery disease Acute non-ST elevation myocardial infarction (NSTEMI) (CMS/HCC) ([facility]) - No chest pain - Lipids: continue atorvastatin 40 mg PO daily - Antiplatelet: continue aspirin 81 mg PO daily; no P2Y12 inhibitor for now until we finalize intervention plans -Patient preferring PCI at this time instead of CABG, will post for PCI tomorrow 08/06/24 New onset of congestive heart failure ([facility]/HCC) ([facility]) - Repeat TTE reviewed; will look to start guideline therapy after workup plan is finalized for CABG vs. Multi-vessel PCI - Currently euvolemic and not in decompensated state Tachy-sen syndrome ([facility]/HCC) ([facility]) - Likely ischemia-related; will reassess rhythm and rate status after re-vascularization - Continue telemetry monitoring while inpatient Atrial fibrillation with RVR ([facility]/HCC) ([facility]) - Anticoagulation: heparin drip while hospitalized; DOAC after procedures/surgery - Rhythm control: HOLD amiodarone for now - Rate control: holding for low HR and soft blood pressure Compression fracture of T10 vertebra ([facility]) - Incidental finding noted on admission CT - No surgical intervention at this time per ortho spine team Peripheral vascular disease ([facility]) - Follow up arterial doppler ultrasound - Consider carotid ultrasound if considering CABG - Statin and antiplatelets as above (see CAD section) Prediabetes - Sliding scale insulin + Anemia -Possible dilutional component; will repeat CBC in early AM and plan for 1 unit PRBC 08/04/2024 Current Diet: Adult Diet Heart Healthy Cosigned by Pato Guzman MD at 08/14/2024 3:19 PM CDT Associated attestation - Pato Guzman MD - 08/14/2024 3:19 PM CDT I saw and examined the patient with Nicky Diaz on 08/05/24 and agree with plan and assessment as above. I personally reviewed the labs, diagnostic imaging and documentation and discussed the plan of care with team and patient Nichelle Hampton is a 69 y.o. female patient with has a past medical history of Diabetes mellitus (HCC).. The patient presented to the hospital with NSTEMI. Subjective:No acute events overnight BP 141/77 | Pulse 60 | Temp 36.9 ?C (98.4 ?F) | Resp (!) 42 | Ht 1.61 m (5' 3.39") | Wt 55.9 kg (123 lb 3.8 oz) | SpO2 100% | BMI 21.57 kg/m? Intake/Output Summary (Last 24 hours) at 08/05/2024 1604Last data filed at 08/05/2024 1300 Gross per 24 hourIntake 975.65 ml Output 1170 ml Net -194.35 ml General: alert, oriented, not in distressNeck;no JVD Lungs: Clear to auscultation bilateral, no rales, no wheezes Heart: S1, S2 Abdomen: soft, non tender, non distended, BS+ Extremities: no Lower extremity edema Skin: no rashes Labs:Reviewed CADNSTEMI - multivessel with LM, oLAD, mLAD, p-mRCA - troponin has down trended - plan for PCI as patient doesn't want the risk with CABG - LVEF 45-50% HFmrEF- 45-50% - will consider initiation of GDMT pending repeat echo after surgical vs. PCI intervention pAfib s/p DCCV 07-30-2024- heparin gtt Tachybrady?- decrease amio and monitor HR's closely. Anemia- etiology? PVD T10 fracture HTN HLP Pato Guzman MD * Tammy Powell DO - 08/05/2024 7:36 AM CDT ID PULMONARY CRITICAL CARE MEDICINE - NoteType: PROGRESS NOTE Patient ID: 69 y.o. female. Chief Complaint: No chief complaint on file. Admission date: 07/31/2024 Referring Physician: Leila Lozano NP Reason for Consult: Reason For Consult: Critical care management ASSESSMENT/PLAN: Problem List: Principal Problem: Triple vessel coronary artery disease Active Problems: Acute non-ST elevation myocardial infarction (NSTEMI) (CMS/HCC) (HCC) Tachy-sen syndrome (CMS/HCC) (HCC) Tobacco use disorder Peripheral vascular disease (HCC) Normocytic anemia Compression fracture of T10 vertebra (HCC) New onset of congestive heart failure (CMS/HCC) (HCC) Atrial fibrillation with RVR (CMS/HCC) (HCC) Prediabetes Diabetes mellitus (HCC) Problem List[1] Principal Problem: Triple vessel coronary artery disease Active Problems: Acute non-ST elevation myocardial infarction (NSTEMI) (CMS/HCC) (HCC) Tachy-sen syndrome (CMS/HCC) (HCC) Tobacco use disorder Peripheral vascular disease (HCC) Normocytic anemia Acute hypoxic respiratory failure (HCC) New onset of congestive heart failure (CMS/HCC) (HCC) Atrial fibrillation with RVR (CMS/HCC) (HCC) Prediabetes Diabetes mellitus (HCC) #Multivessel CAD with left main dx. #acute hypoxemic respiratory failure #Pulmonary edema #preop pulmonary edema #CHF #cellulitis #afib RVR #dm2 #htn #tobacco use Assessment: 69 yo female w/ PMH including HTN, DM, CAD and tobacco abuse who was transferred to [facility] for revascularization after LHC at [facility] revealed multivessel disease with severe L main disease. Other relevant events at OSH included cellulitis 2/2 to spider bite and hypoxic respiratory failure requiring bipap, afib RVR and possible new diagnosis of CHF (EF 45-50%). Neuro/Psych: -Delirium precautions -Out of bed to chair as tolerated. Continue PT/OT -Monitor for signs of pain CV: - LHC (07/30/24) notable for severe 80% LM disease, and severe multivessel disease. - Asa, atorvastatin - MARQUES, mild global hypokinesis, reduced EF 45-50% and DCCV (07/30/24). - Amiodarone 200mg BID - Heparin drip - Mgmt per AHF - Pending CT surgery vs interventional cardiology plans Resp: - On supplemental oxygen, wean as tolerated to maintain spo2 >92% - CT chest (07/31)- Small bilateral pleural effusions, greater on the left. Dependent consolidative opacities with air bronchogram and surrounding groundglass in the bilateral lower lobes. Mild diffuse groundglass is associated with interlobular septal thickening. Scattered bilateral subsegmental atelectasis in both lungs. Minimal upper lobe predominant centrilobular emphysema. - PFT(07/31) - Restrictive ventilatory defect likely in setting of pulmonary edema and opacities seen on CT chest. GI/Nutrition: - Diet: AHA - Continue bowel regimen - PPI not indicated Renal/Electrolytes: - Renal fxn normal - Replace electrolytes per unit protocol - Monitor I/Os Endo: Lab Results Component Value Date Hgb A1C 6.45 (H) 07/31/2024 TSH 1.224 07/28/2024 - BG goal 120 - 180, SSI as needed Heme/Onc: - Hgb 9.1, monitor for signs of bleeding - Transfuse to maintain hgb >7 - Heparin gtt ID: - Leukocytosis to 12.6, afebrile - Sp 5 day course of Unasyn for Cellulitis at OSH - Monitor off abx for now Msk/Skin/Deconditioned: - PT/OT - Continue wound care and sacral decubitus prevention - ICU quality > DVT prophylaxis: heparin gtt > PPI prophylaxis: not indicated > Nutrition/glucose control: SSI, BG 120-180 > Line and tubes: - Peripherals > Perkins catheter: n/a > Sedation: n/a > Date of intubation: n/a > Restraints: n/a Discussed with attending Tammy Powell DO Emergency Medicine Critical care PGY5 [facility] | [employer] HISTORY OF PRESENT ILLNESS: NO Hampton is a 69 y.o. female with past medical history of hypertension, diabetes mellitus (on no meds), reported history of coronary artery disease and tobacco use, was transferred from [facility] after LHC revealed severe left main disease and multivessel disease. She was originally admitted for hand cellulitis after a spider bite, but during that hospital stay she had hypoxic respiratory failure requiring BiPAP, NSTEMI, possibly newly diagnosed CHF (EF 45-50%), and Afib w/ RVR. She underwent a MARQUES w/ cardioversion. LHC and RHC on 07/31/23 which showed normal filling pressures, LHC which showed 80% mid to distal LM lesion extending into the ostium of LAD, 60-70% mid LAD, diffuse LCx and OM disease, and 70-80% proximal to mid RCA disease. She was transferred to [facility] for revascularizaton. No data found. Enter data into the [facility] Mental Health Specialist navigator to see it here. Assessment & Plan Assessment & Plan Subjective INTERVAL EVENTS: [_] Temp (24hrs), Av.8 ?C (98.3 ?F), Min:36.7 ?C (98 ?F), Max:37.1 ?C (98.8 ?F) No data recorded I/O last 3 completed shifts: In: 1948.7 (34.9 mL/kg) [P.O.:850; I.V.:813.7 (14.6 mL/kg); Blood:285] Out: 770 (13.8 mL/kg) [Urine:770 (0.4 mL/kg/hr)] Weight: 55.9 kg No data found.No data found. PAST MEDICAL HISTORY:Medical History[2] PAST SURGICAL HISTORY:Surgical History[3] FAMILY HISTORY:Family History[4] SOCIAL HISTORY:Social History Socioeconomic HistoryMarital status: Spouse name: Not on file Number of children: Not on file Years of education: Not on file Highest education level: Not on file Occupational History Not on file Tobacco Use Smoking status: Former Current packs/day: 0.00 Types: Cigarettes Quit date: 1967 Years since quittin.2 Smokeless tobacco: Current Tobacco comments: PATIENT VERBALIZED "WELL NOW THAT I AM IN THE HOSPITAL, I CAN'T REALLY SMOKE Vaping Use Vaping status: Not on file Substance and Sexual Activity Alcohol use: Yes Alcohol/week: 6.0 standard drinks of alcohol Types: 6 Cans of beer per week Comment: NAPOLEON EVERYOTHER WEEKEND Drug use: Never Sexual activity: Not Currently Other Topics Concern Not on file Social History Narrative Not on file Social Drivers of Health Financial Resource Strain: Not on fileFood Insecurity: No Food Insecurity (07/31/2024) Hunger Vital Sign Worried About Running Out of Food in the Last Year: Never true Ran Out of Food in the Last Year: Never true Transportation Needs: No Transportation Needs (07/31/2024) PRAPARE - Transportation Lack of Transportation (Medical): No Lack of Transportation (Non-Medical): No Physical Activity: Not on file Stress: Not on file Social Connections: Not on file Intimate Partner Violence: Not At Risk (07/31/2024) Humiliation, Afraid, Rape, and Kick questionnaire Fear of Current or Ex-Partner: No Emotionally Abused: No Physically Abused: No Sexually Abused: No Housing Stability: Low Risk (07/31/2024) Housing Stability Vital Sign Unable to Pay for Housing in the Last Year: No Number of Times Moved in the Last Year: 0 Homeless in the Last Year: No ALLERGIES: Allergies[5] HOME MEDICATIONS:Medication Documentation Review Audit Reviewed by Sohail Garsia RN (Registered Nurse) on 08/01/24 at 1012 Medication Order Taking? Sig Documenting Provider Last Dose Statusevolocumab (Repatha SureClick) 140 MG/ML Subcutaneous Solution Auto-injector [id number] Inject 1 mL under the skin every 14 days. Leila Lozano, HAILEY Active amiodarone, 200 mg, Oral, BID aspirin, 81 mg, Oral, Daily atorvastatin, 40 mg, Oral, Daily polyethylene glycol (PEG) 3350, 17 g, Oral, Daily sennosides, 1 tablet, Oral, BID sodium chloride, 10 mL, Intravenous, q12h DARYL heparin, 0.1-40 Units/kg/hr, Last Rate: 23 Units/kg/hr (08/05/24 0700) PRN medications: calcium gluconate, dextrose, dextrose, glucagon, insulinlispro, magnesium sulfate, potassium & sodium phosphates OR potassium & sodium phosphates, potassium chloride OR potassium chloride OR potassium chloride OR Potassium chloride, sodium chloride, sodium chloride, sodium phosphates 45 mmol in sodium chloride 0.9 % 100 mL IVPB PHYSICAL EXAM:Gen: PE_Gen: AAOx3; NAD Neuro: No focal deficits appreciated HEENT: PERRL; EOMI; No scleral icterus CV/Pulses: PE_CV: RRR; 2+ peripheral pulses Pulm: Decreased breath sounds at the bases; No wheezing GI: BS (+); Soft; NTND : Deferred MS: Tone intact Skin/Ext: No changes in lesions; 1+ pitting edema LABS:Pertinent Labs : Lab Results Component Value Date WBC 12.56 (H) 08/05/2024 POC V Hgb Tot 9.1 (L) 08/02/2024 Hgb 9.1 (L) 08/05/2024 POC V Hct (calc) 27.0 (L) 08/02/2024 Hct 28.2 (L) 08/05/2024 Plt Count 459 (H) 08/05/2024 Lab ResultsComponent Value Date POC V Na 130 (L) 08/02/2024 Sodium Lvl 135 (L) 08/05/2024 POC V K 3.7 08/02/2024 Potassium Lvl 4.3 08/05/2024 POC V Cl 101 08/02/2024 Chloride Lvl 103 08/05/2024 CO2 Lvl 24.3 08/05/2024 BUN 13 08/05/2024 Creatinine Lvl 0.67 08/05/2024 POC V Glu 179 (H) 08/02/2024 Glucose Lvl 134 (H) 08/05/2024 Lab ResultsComponent Value Date Calcium Lvl 8.0 (L) 08/05/2024 Magnesium 1.97 08/05/2024 Phosphorus Lvl 3.4 08/05/2024 Lab ResultsComponent Value Date AST 26 08/05/2024 ALT 28 08/05/2024 Alkaline Phosphatase 91 08/05/2024 Lab ResultsComponent Value Date PTT 90.0 (H) 08/05/2024 Prothrombin Time (PT) 14.2 08/03/2024 INR 1.08 08/03/2024 No results found for: "COLORU", "CLARITYU", "SPECGRAV", "PHUR", "PROTUR", "GLUCOSEU", "KETONESU", "NITRITEU", "LEUKOCYTESUR", "BILIRUBINUR", "UROBILINOGEN" Lab Results Component Value Date HS Troponin I 55 (H) 08/02/2024 IMAGING:@IMAGES@ EKG:Encounter Date: 07/31/24 ECG 12 lead Result Value Ventricular Rate 66 Atrial Rate 66 WY Interval 132 QRS Duration 70 QT/QTc 418 QTc Calculation 438 P-Dayton 24 R-Dayton -27 T-Dayton 32 Impression SINUS RHYTHM NORMAL ECG WHEN COMPARED WITH ECG OF 30-JUL-2024 14:12, SINUS RHYTHM HAS REPLACED ATRIAL FIBRILLATION RATE HAS DECREASED CRITERIA FOR ANTERIOR INFARCTION NO LONGER PRESENT Confirmed by Jaiden Liriano ([id number]) on 07/31/2024 5:22:03 PM ECHO: Transthoracic echo (TTE) complete 07/31/2024 Interpretation SummaryLeft Ventricle: Left ventricle size is normal. Findings consistent with eccentric hypertrophy. Mild global hypokinesis present. Mildly reduced systolic function with an estimated EF of 45 - 50%. Grade I diastolic dysfunction of the left ventricle. Apical thrombus is not present verified by the use of contrast. Right Ventricle: Right ventricle size is normal. Normal systolic function in the right ventricle. TAPSE is 19 mm. Pericardium: No pericardial effusion present. Transesophageal echo (MARQUES) with possible cardioversion 07/30/2024 Interpretation SummaryLeft Ventricle: Left ventricle size is normal. Mild global hypokinesis present. Reduced systolic function with an estimated EF of 45 - 50%. Right Ventricle: Right ventricle size is normal. Normal systolic function in the right ventricle. Left Atrium: Normal sized left atrial appendage. No thrombus in left atrium present. Transthoracic echo (TTE) complete 07/28/2024 Interpretation SummaryPatient is in atrial fibrillation with RVR at the time of this study. LV systolic function assessment is suboptimal. Left Ventricle: Left ventricle size is normal. Mild global hypokinesis present. Mildly reduced systolic function with an estimated EF of 45 - 50%. Right Ventricle: Right ventricle size is normal. Normal systolic function in the right ventricle. Left Atrium: Left atrium is moderately dilated. Mitral Valve: Moderate mitral regurgitation present. Tricuspid Valve: Mild to moderate tricuspid regurgitation present. Mild to moderate pulmonary hypertension present. RVSP is 46.00 mmHg. Pericardium: Trivial pericardial effusion present. Left pleural effusion present. [1] Patient Active Problem List Diagnosis New onset of congestive heart failure (CMS/HCC) (HCC) Cellulitis Atrial fibrillation with RVR (CMS/HCC) (HCC) Prediabetes Elevated troponin Hypertension Tobacco use Coronary artery disease Hyponatremia Hyperglycemia Pulmonary edema cardiac cause (CMS/HCC) (HCC) Triple vessel coronary artery disease Acute non-ST elevation myocardial infarction (NSTEMI) (CMS/HCC) (HCC) Tachy-sen syndrome (CMS/HCC) (HCC) Tobacco use disorder Peripheral vascular disease (HCC) Normocytic anemia Diabetes mellitus (HCC) Compression fracture of T10 vertebra (HCC) [2] Past Medical History: Diagnosis Date Diabetes mellitus (HCC) PATIENT CLAIMED THAT SHE HAS DIABETES [3] History reviewed. No pertinent surgical history. [4] Family History: Problem Relation Name Age of Onset Diabetes Mother No Known Problems Father [5] No Known Allergies Cosigned by Jackson Ledesma MD at 08/05/2024 10:46 AM CDT * Hugo Diaz MD - 08/04/2024 5:09 PM CDT [facility] ICU PROGRESS NOTE Subjective No acute events overnight. No chest pain, resting comfortably. Objective Last Recorded Vitals Blood pressure 139/66, pulse 72, temperature 36.7 ?C (98 ?F), temperature source Oral, resp. rate 20, height 1.61 m (5' 3.39"), weight 55.9 kg (123 lb 3.8 oz), SpO2 92%. Physical Exam: GEN: lying down comfortably, not in acute distress HEENT: normal conjuctivae, anicteric sclera neck: no JVD , supple, normal ROM CV: RRR s1s2 no mrg, pulse +2 resp: CTAB, no wheezing/crackles GI: soft, non tender MSK: no joint swelling or pain to palpation extremities: no edema, clubbing or cyanosis Neuro: AOx3, moving all extremities, speech normal Skin: no new rashes, bruises TTE: Left Ventricle: Left ventricle size is normal. Findings consistent with eccentric hypertrophy. Mild global hypokinesis present. Mildly reduced systolic function with an estimated EF of 45 - 50%. Grade I diastolic dysfunction of the left ventricle. Apical thrombus is not present verified by the use of contrast. Right Ventricle: Right ventricle size is normal. Normal systolic function in the right ventricle. TAPSE is 19 mm. Pericardium: No pericardial effusion present. Assessment & Plan Triple vessel coronary artery disease Acute non-ST elevation myocardial infarction (NSTEMI) (CMS/HCC) ([facility]) - No chest pain - Lipids: continue atorvastatin 40 mg PO daily - Antiplatelet: continue aspirin 81 mg PO daily; no P2Y12 inhibitor for now until we finalize intervention plans - Plan for 2V CABG on Tuesday08/06/2024 New onset of congestive heart failure (CMS/HCC) ([facility]) - Repeat TTE reviewed; will look to start guideline therapy after workup plan is finalized for CABG vs. Multi-vessel PCI - Currently euvolemic and not in decompensated state Tachy-sen syndrome (CMS/HCC) ([facility]) - Likely ischemia-related; will reassess rhythm and rate status after re-vascularization - Continue telemetry monitoring while inpatient Atrial fibrillation with RVR (CMS/HCC) ([facility]) - Anticoagulation: heparin drip while hospitalized; DOAC after procedures/surgery - Rhythm control: HOLD amiodarone for now - Rate control: holding for low HR and soft blood pressure Compression fracture of T10 vertebra ([facility]) - Incidental finding noted on admission CT - No surgical intervention at this time per ortho spine team Peripheral vascular disease (HCC) - Follow up arterial doppler ultrasound - Consider carotid ultrasound if considering CABG - Statin and antiplatelets as above (see CAD section) Prediabetes - Sliding scale insulin + Anemia -Possible dilutional component; will repeat CBC in early AM and plan for 1 unit PRBC Current Diet: Adult Diet Heart Healthy Cosigned by Pato Guzman MD at 08/14/2024 3:18 PM CDT Associated attestation - Pato Guzman MD - 08/14/2024 3:18 PM CDT I saw and examined the patient with Nicky Diaz on 08/04/24 and agree with plan and assessment as above. I personally reviewed the labs, diagnostic imaging and documentation and discussed the plan of care with team and patient Nichelle Hampton is a 69 y.o. female patient with has a past medical history of Diabetes mellitus (HCC).. The patient presented to the hospital with Subjective:No acute events overnight BP 139/66 | Pulse 72 | Temp 36.7 ?C (98 ?F) (Oral) | Resp 20 | Ht 1.61 m (5' 3.39") | Wt 55.9 kg (123 lb 3.8 oz) | SpO2 92% | BMI 21.57 kg/m? Intake/Output Summary (Last 24 hours) at 08/04/2024 1708Last data filed at 08/04/2024 1600 Gross per 24 hourIntake 1132.9 ml Output 400 ml Net 732.9 ml General: alert, oriented, not in distressNeck;no JVD Lungs: Clear to auscultation bilateral, no rales, no wheezes Heart: S1, S2 Abdomen: soft, non tender, non distended, BS+ Extremities: no Lower extremity edema Skin: no rashes Labs:Reviewed CADNSTEMI - multivessel with LM, oLAD, mLAD, p-mRCA - troponin has down trended - plan for CABG on Tuesday - JEAN to LAD, SVG to Lcx, SVG to RCA and diag? - LV EF 45-50% HFmrEF- 45-50% - will consider initiation of GDMT pending repeat echo after surgical vs. PCI intervention pAfib s/p DCCV 07-30-2024- heparin gtt Tachybrady? Anemia- etiology? PVD T10 fracture- conservative mgmt HTN HLP Pato Guzman MD * Jackson Ledesma MD - 08/04/2024 10:31 AM CDT PCCM Attending Note Acute events overnight: None Diagnosis: #Multivessel CAD with left main dx. #acute hypoxemic respiratory failure #Pulmonary edema #preop pulmonary edema #CHF #cellulitis #afib RVR #dm2 #htn #tobacco use Assessment: MARQUES, mild global hypokinesis, reduced EF 45-50% and DCCV (07/30/24) LHC (07/30/24) notable for severe 80% LM disease, and severe multivessel disease Worsening leukocytosis -> no fever Plan: Oxygen by [place] Delirium precautions Aspirin and statin High risk PCI vs CABG eval ongoing PO amiodarone SSI Diet Continue wound care and sacral decubitus prevention Hemodynamic medication Pending Tx to IMU This patient is critically ill due to presenting with an illness that impairsone or more vital organ systems. There was a high probability of imminent or life threatening deterioration in the patient's condition. I spent 35 min min min cumulative minutes of non-concurrent critical care time directly related to this individual patient's care involving the evaluation, coordination, and management of the patient. This includes only time spent at the immediate bedside or elsewhere on the patient's floor or unit coordinating this patient's care and is not inclusive of any time spent performing invasive procedures. Jackson Ledesma, [facility] Electronically signed by Jackson Ledesma MD at 510:33 AM CDT * Tammy Powell DO - 08/04/2024 7:04 AM CDT ID PULMONARY CRITICAL CARE MEDICINE - NoteType: PROGRESS NOTE Patient ID: @[email or web address]@ is a 69 y.o. female. Chief Complaint: No chief complaint on file. Admission date: 07/31/2024 Referring Physician: Leila Lozano NP Reason for Consult: Reason For Consult: Critical care management ASSESSMENT/PLAN: Problem List: Principal Problem: Triple vessel coronary artery disease Active Problems: Acute non-ST elevation myocardial infarction (NSTEMI) (CMS/HCC) (HCC) Tachy-sen syndrome (CMS/HCC) (HCC) Tobacco use disorder Peripheral vascular disease (HCC) Normocytic anemia Compression fracture of T10 vertebra (HCC) New onset of congestive heart failure (CMS/HCC) (HCC) Atrial fibrillation with RVR (CMS/HCC) (HCC) Prediabetes Diabetes mellitus (HCC) Problem List[1] Principal Problem: Triple vessel coronary artery disease Active Problems: Acute non-ST elevation myocardial infarction (NSTEMI) (CMS/HCC) (HCC) Tachy-sen syndrome (CMS/HCC) (HCC) Tobacco use disorder Peripheral vascular disease (HCC) Normocytic anemia Acute hypoxic respiratory failure (HCC) New onset of congestive heart failure (CMS/HCC) (HCC) Atrial fibrillation with RVR (CMS/HCC) (HCC) Prediabetes Diabetes mellitus (HCC) #Multivessel CAD with left main dx. #acute hypoxemic respiratory failure #Pulmonary edema #preop pulmonary edema #CHF #cellulitis #afib RVR #dm2 #htn #tobacco use Assessment: 69 yo female w/ PMH including HTN, DM, CAD and tobacco abuse who was transferred to [facility] for revascularization after LHC at [facility] revealed multivessel disease with severe L main disease. Other relevant events at OSH included cellulitis 2/2 to spider bite and hypoxic respiratory failure requiring bipap, afib RVR and possible new diagnosis of CHF (EF 45-50%). Neuro/Psych: -Delirium precautions -Out of bed to chair as tolerated. Continue PT/OT -Monitor for signs of pain CV: Lab Results Component Value Date Pro BNP 17,963 (H) 07/28/2024 - [facility] (07/30/24) notable for severe 80% LM disease, and severe multivessel disease. - Asa, atorvastatin - MAQRUES, mild global hypokinesis, reduced EF 45-50% and DCCV (07/30/24). - Amiodarone 200mg BID - Heparin drip - Mgmt per F - Pending CT surgery vs interventional cardiology plans Resp: - On supplemental oxygen, wean as tolerated to maintain spo2 >92% - CT chest (07/31)- Small bilateral pleural effusions, greater on the left. Dependent consolidative opacities with air bronchogram and surrounding groundglass in the bilateral lower lobes. Mild diffuse groundglass is associated with interlobular septal thickening. Scattered bilateral subsegmental atelectasis in both lungs. Minimal upper lobe predominant centrilobular emphysema. - PFT(07/31) - Restrictive ventilatory defect likely in setting of pulmonary edema and opacities seen on CT chest. GI/Nutrition: - Diet: AHA - Continue bowel regimen - PPI not indicated Renal/Electrolytes: - Renal fxn normal - Replace electrolytes per unit protocol - Monitor I/Os Endo: Lab Results Component Value Date Hgb A1C 6.45 (H) 07/31/2024 TSH 1.224 07/28/2024 - BG goal 120 - 180, SSI as needed Heme/Onc: - Hgb 7.6, down from 9.0, monitor for signs of bleeding - Transfuse to maintain hgb >7 - Heparin gtt ID: - Leukocytosis to 14, afebrile - Sp 5 day course of Unasyn for Cellulitis at OSH - Monitor off abx for now Msk/Skin/Deconditioned: - Consult PT/OT. - Continue wound care and sacral decubitus prevention. - ICU quality > DVT prophylaxis: heparin gtt > PPI prophylaxis: not indicated > Nutrition/glucose control: SSI, BG 120-180 > Line and tubes: - Peripherals > Perkins catheter: n/a > Sedation: n/a > Date of intubation: n/a > Restraints: n/a Discussed with attending Tammy Powell, DO Emergency Medicine Critical care PGY5 [facility] | [facility] [employer] HISTORY OF PRESENT ILLNESS: NO Hampton is a 69 y.o. female with past medical history of hypertension, diabetes mellitus (on no meds), reported history of coronary artery disease and tobacco use, was transferred from [facility] after C revealed severe left main disease and multivessel disease. She was originally admitted for hand cellulitis after a spider bite, but during that hospital stay she had hypoxic respiratory failure requiring BiPAP, NSTEMI, possibly newly diagnosed CHF (EF 45-50%), and Afib w/ RVR. She underwent a MARQUES w/ cardioversion. LHC and RHC on 07/31/23 which showed normal filling pressures, LHC which showed 80% mid to distal LM lesion extending into the ostium of LAD, 60-70% mid LAD, diffuse LCx and OM disease, and 70-80% proximal to mid RCA disease. She was transferred to [facility] for revascularizaton. No data found. Enter data into the [facility] Mental Health Specialist navigator to see it here. Assessment & Plan Assessment & Plan Subjective INTERVAL EVENTS: [_] Temp (24hrs), Av.2 ?C (98.9 ?F), Min:36.9 ?C (98.4 ?F), Max:37.8 ?C (100 ?F) No data recorded I/O last 3 completed shifts: In: 1310.8 (23.4 mL/kg) [P.O.:590; I.V.:670.8 (12 mL/kg); IV Piggyback:50] Out: - (0 mL/kg) Weight: 55.9 kg No data found.No data found. PAST MEDICAL HISTORY:Medical History[2] PAST SURGICAL HISTORY:Surgical History[3] FAMILY HISTORY:Family History[4] SOCIAL HISTORY:Social History Socioeconomic HistoryMarital status: Spouse name: Not on file Number of children: Not on file Years of education: Not on file Highest education level: Not on file Occupational History Not on file Tobacco Use Smoking status: Former Current packs/day: 0.00 Types: Cigarettes Quit date: 1967 Years since quittin.2 Smokeless tobacco: Current Tobacco comments: PATIENT VERBALIZED "WELL NOW THAT I AM IN THE HOSPITAL, I CAN'T REALLY SMOKE Vaping Use Vaping status: Not on file Substance and Sexual Activity Alcohol use: Yes Alcohol/week: 6.0 standard drinks of alcohol Types: 6 Cans of beer per week Comment: [place] EVERYOTHER WEEKEND Drug use: Never Sexual activity: Not Currently Other Topics Concern Not on file Social History Narrative Not on file Social Drivers of Health Financial Resource Strain: Not on fileFood Insecurity: No Food Insecurity (07/31/2024) Hunger Vital Sign Worried About Running Out of Food in the Last Year: Never true Ran Out of Food in the Last Year: Never true Transportation Needs: No Transportation Needs (07/31/2024) PRAPARE - Transportation Lack of Transportation (Medical): No Lack of Transportation (Non-Medical): No Physical Activity: Not on file Stress: Not on file Social Connections: Not on file Intimate Partner Violence: Not At Risk (07/31/2024) Humiliation, Afraid, Rape, and Kick questionnaire Fear of Current or Ex-Partner: No Emotionally Abused: No Physically Abused: No Sexually Abused: No Housing Stability: Low Risk (07/31/2024) Housing Stability Vital Sign Unable to Pay for Housing in the Last Year: No Number of Times Moved in the Last Year: 0 Homeless in the Last Year: No ALLERGIES: Allergies[5] HOME MEDICATIONS:Medication Documentation Review Audit Reviewed by Sohail Garsia RN (Registered Nurse) on 08/01/24 at 1012 Medication Order Taking? Sig Documenting Provider Last Dose Statusevolocumab (Repatha SureClick) 140 MG/ML Subcutaneous Solution Auto-injector [id number] Inject 1 mL under the skin every 14 days. Leila Lozano, DANCE TEACHER Active amiodarone, 200 mg, Oral, BID aspirin, 81 mg, Oral, Daily atorvastatin, 40 mg, Oral, Daily polyethylene glycol (PEG) 3350, 17 g, Oral, Daily sennosides, 1 tablet, Oral, BID sodium chloride, 10 mL, Intravenous, q12h DARYL heparin, 0.1-40 Units/kg/hr, Last Rate: 22 Units/kg/hr (08/04/24 0400) PRN medications: calcium gluconate, dextrose, dextrose, glucagon, insulinlispro, magnesium sulfate, potassium & sodium phosphates OR potassium & sodium phosphates, potassium chloride OR potassium chloride OR potassium chloride OR Potassium chloride, sodium chloride, sodium phosphates 45 mmol in sodium chloride 0.9 % 100 mL IVPB PHYSICAL EXAM:Gen: PE_Gen: AAOx3; NAD Neuro: No focal deficits appreciated HEENT: PERRL; EOMI; No scleral icterus CV/Pulses: PE_CV: RRR; 2+ peripheral pulses Pulm: Decreased breath sounds at the bases; No wheezing GI: BS (+); Soft; NTND : Deferred MS: Tone intact Skin/Ext: No changes in lesions; 1+ pitting edema LABS:Pertinent Labs : Lab Results Component Value Date WBC 14.80 (H) 08/04/2024 POC V Hgb Tot 9.1 (L) 08/02/2024 Hgb 7.6 (L) 08/04/2024 POC V Hct (calc) 27.0 (L) 08/02/2024 Hct 23.6 (L) 08/04/2024 Plt Count 361 08/04/2024 Lab ResultsComponent Value Date POC V Na 130 (L) 08/02/2024 Sodium Lvl 134 (L) 08/04/2024 POC V K 3.7 08/02/2024 Potassium Lvl 4.6 (H) 08/04/2024 POC V Cl 101 08/02/2024 Chloride Lvl 100 08/04/2024 CO2 Lvl 25.6 08/04/2024 BUN 14 08/04/2024 Creatinine Lvl 0.65 08/04/2024 POC V Glu 179 (H) 08/02/2024 Glucose Lvl 149 (H) 08/04/2024 Lab ResultsComponent Value Date Calcium Lvl 8.1 (L) 08/04/2024 Magnesium 2.14 08/04/2024 Phosphorus Lvl 3.8 08/04/2024 Lab ResultsComponent Value Date AST 35 08/04/2024 ALT 26 08/04/2024 Alkaline Phosphatase 78 08/04/2024 Lab ResultsComponent Value Date PTT 71.9 (H) 08/04/2024 Prothrombin Time (PT) 14.2 08/03/2024 INR 1.08 08/03/2024 No results found for: "COLORU", "CLARITYU", "SPECGRAV", "PHUR", "PROTUR", "GLUCOSEU", "KETONESU", "NITRITEU", "LEUKOCYTESUR", "BILIRUBINUR", "UROBILINOGEN" Lab Results Component Value Date HS Troponin I 55 (H) 08/02/2024 IMAGING:@IMAGES@ EKG:Encounter Date: 07/31/24 ECG 12 lead Result Value Ventricular Rate 66 Atrial Rate 66 WY Interval 132 QRS Duration 70 QT/QTc 418 QTc Calculation 438 P-Dayton 24 R-Dayton -27 T-Dayton 32 Impression SINUS RHYTHM NORMAL ECG WHEN COMPARED WITH ECG OF 10-MAR-2025 14:12, SINUS RHYTHM HAS REPLACED ATRIAL FIBRILLATION RATE HAS DECREASED CRITERIA FOR ANTERIOR INFARCTION NO LONGER PRESENT Confirmed by Jaiden Liriano ([id number]) on 07/31/2024 5:22:03 PM ECHO: Transthoracic echo (TTE) complete 07/31/2024 Interpretation SummaryLeft Ventricle: Left ventricle size is normal. Findings consistent with eccentric hypertrophy. Mild global hypokinesis present. Mildly reduced systolic function with an estimated EF of 45 - 50%. Grade I diastolic dysfunction of the left ventricle. Apical thrombus is not present verified by the use of contrast. Right Ventricle: Right ventricle size is normal. Normal systolic function in the right ventricle. TAPSE is 19 mm. Pericardium: No pericardial effusion present. Transesophageal echo (MARQUES) with possible cardioversion 07/30/2024 Interpretation SummaryLeft Ventricle: Left ventricle size is normal. Mild global hypokinesis present. Reduced systolic function with an estimated EF of 45 - 50%. Right Ventricle: Right ventricle size is normal. Normal systolic function in the right ventricle. Left Atrium: Normal sized left atrial appendage. No thrombus in left atrium present. Transthoracic echo (TTE) complete 07/28/2024 Interpretation SummaryPatient is in atrial fibrillation with RVR at the time of this study. LV systolic function assessment is suboptimal. Left Ventricle: Left ventricle size is normal. Mild global hypokinesis present. Mildly reduced systolic function with an estimated EF of 45 - 50%. Right Ventricle: Right ventricle size is normal. Normal systolic function in the right ventricle. Left Atrium: Left atrium is moderately dilated. Mitral Valve: Moderate mitral regurgitation present. Tricuspid Valve: Mild to moderate tricuspid regurgitation present. Mild to moderate pulmonary hypertension present. RVSP is 46.00 mmHg. Pericardium: Trivial pericardial effusion present. Left pleural effusion present. [1] Patient Active Problem List Diagnosis New onset of congestive heart failure (CMS/HCC) (HCC) Cellulitis Atrial fibrillation with RVR (CMS/HCC) (HCC) Prediabetes Elevated troponin Hypertension Tobacco use Coronary artery disease Hyponatremia Hyperglycemia Pulmonary edema cardiac cause (CMS/HCC) (HCC) Triple vessel coronary artery disease Acute non-ST elevation myocardial infarction (NSTEMI) (CMS/HCC) (HCC) Tachy-sen syndrome (CMS/HCC) (HCC) Tobacco use disorder Peripheral vascular disease (HCC) Normocytic anemia Diabetes mellitus (HCC) Compression fracture of T10 vertebra (HCC) [2] Past Medical History: Diagnosis Date Diabetes mellitus (HCC) PATIENT CLAIMED THAT SHE HAS DIABETES [3] History reviewed. No pertinent surgical history. [4] Family History: Problem Relation Name Age of Onset Diabetes Mother No Known Problems Father [5] No Known Allergies Cosigned by Jackson Ledesma MD at 08/04/2024 12:01 PM CDT * Rafal Davidson MD - 08/03/2024 4:34 PM CDT Type I myocardial infarction * Brandin Marks MD - 08/03/2024 1:48 PM CDT [facility] ICU PROGRESS NOTE Subjective No acute events overnight; she is still pending workup from cardiac surgery and IC teams. No chest pain, resting comfortably. Objective Last Recorded Vitals Blood pressure (!) 107/53, pulse 66, temperature 36.8 ?C (98.3 ?F), resp. rate (!) 30, height 1.61 m (5' 3.39"), weight 55.9 kg (123 lb 3.8 oz), SpO2 92%. Physical Exam: GEN: lying down comfortably, not in acute distress HEENT: normal conjuctivae, anicteric sclera neck: no JVD , supple, normal ROM CV: RRR s1s2 no mrg, pulse +2 resp: CTAB, no wheezing/crackles GI: soft, non tender MSK: no joint swelling or pain to palpation extremities: no edema, clubbing or cyanosis Neuro: AOx3, moving all extremities, speech normal Skin: no new rashes, bruises TTE: Left Ventricle: Left ventricle size is normal. Findings consistent with eccentric hypertrophy. Mild global hypokinesis present. Mildly reduced systolic function with an estimated EF of 45 - 50%. Grade I diastolic dysfunction of the left ventricle. Apical thrombus is not present verified by the use of contrast. Right Ventricle: Right ventricle size is normal. Normal systolic function in the right ventricle. TAPSE is 19 mm. Pericardium: No pericardial effusion present. Assessment & Plan Triple vessel coronary artery disease Acute non-ST elevation myocardial infarction (NSTEMI) (CMS/HCC) (HCC) - No chest pain - Lipids: continue atorvastatin 40 mg PO daily - Antiplatelet: continue aspirin 81 mg PO daily; no P2Y12 inhibitor for now until we finalize intervention plans - Pending decisions rearding optimal revascularization strategy given LM disease and multivessel CAD between CV surgery and interventional cardiology; we have spoken with the CV surgery team who deem her to be high risk for bypass surgery, will discuss with the interventional cardiology team New onset of congestive heart failure (CMS/HCC) ([facility]) - Repeat TTE reviewed; will look to start guideline therapy after workup plan is finalized for CABG vs. Multi-vessel PCI - Currently euvolemic and not in decompensated state Tachy-sen syndrome (CMS/HCC) ([facility]) - Likely ischemia-related; will reassess rhythm and rate status after re-vascularization - Continue telemetry monitoring while inpatient Atrial fibrillation with RVR (CMS/HCC) ([facility]) - Anticoagulation: heparin drip while hospitalized; DOAC after procedures/surgery - Rhythm control: HOLD amiodarone for now - Rate control: holding for low HR and soft blood pressure Compression fracture of T10 vertebra ([facility]) - Incidental finding noted on admission CT - No surgical intervention at this time per ortho spine team Peripheral vascular disease ([facility]) - Follow up arterial doppler ultrasound - Consider carotid ultrasound if considering CABG - Statin and antiplatelets as above (see CAD section) Prediabetes - Sliding scale insulin Current Diet: Adult Diet Heart Healthy Cosigned by Cruz Solomon MD at 08/04/2024 1:58 PM CDT Associated attestation - Cruz Mccabe MD - 08/04/2024 1:58 PM CDT Cardiology Staff Attestation I have seen and examined the patient with Dr. Marks on 08/03/2024. I have reviewed all the clinical information, lab investigations, radiographic and other imaging data. I agree with findings, assessment and plan as outlined. Treatment plan was formulated under my direct supervision. 69 yo F with history of HTN, HLD, diagnosed NSTEMI (OSH). Work-up showed MV-CAD (Distal LM: 80% into oLAD, p-mLAD: 60-70%, p-mRCA: long 70-80%, LCx: OM with diffuse disease - RA: 4. PA: 36/12 (22). W: 12-14 -CO/CI: 3.4/2.2). Hospital admission c/w new diagnosis of paroxysmal AFib RVR s/p DCCV (07/30/24). TTE: LVEF: 45-50% - LVEDd: [address] chest revealed T10 transverse. Pending MRI report. Possible evaluation by neurosurgery vs. Ortho spine. Hemodynamically stable. Not on vasoppressors or inotropic support. -- No events.Asymptomatic from the cardiovascular standpoint since admission. AFib. On Amiodarone. Evaluated by Ortho spine due to vertebral fractures. No surgical intervention required at this time. Patient was evaluated by CT surgery and interventional cardiology. Possible surgical revascularization on 08/06/2024. Please follow their recommendations. Active medical conditions, plan and recommendations were discussed in lengthwith the patient. All the questions were answered. This patient is critically ill. The patient care involves high complexitymedical decision making and ICU level of care. There was a high probability of imminent life-threatening deterioration in the patient's condition. I spent 45 minutes of critical care time with this patient. This is the total time I spent evaluating, coordinating, managing and providing care to the patient as well as time spent in documenting such activities. This time is exclusive of time required to perform procedures required during patient management. (This note was dictated using voice recognition speech to text software and may contain inadvertent recognition errors). * Neda Hdez MD - 08/03/2024 12:57 PM CDT ID PULMONARY CRITICAL CARE MEDICINE - NoteType: PROGRESS NOTE Patient ID: @[email or web address]@ is a 69 y.o. female. Chief Complaint: No chief complaint on file. Admission date: 07/31/2024 Referring Physician: Leila Lozano NP Reason for Consult: Reason For Consult: Critical care management ASSESSMENT/PLAN: Problem List: Principal Problem: Triple vessel coronary artery disease Active Problems: Acute non-ST elevation myocardial infarction (NSTEMI) (CMS/HCC) (HCC) Tachy-sen syndrome (CMS/HCC) (HCC) Tobacco use disorder Peripheral vascular disease (HCC) Normocytic anemia Compression fracture of T10 vertebra (HCC) New onset of congestive heart failure (CMS/HCC) (HCC) Atrial fibrillation with RVR (CMS/HCC) (HCC) Prediabetes Diabetes mellitus (HCC) Problem List[1] Principal Problem: Triple vessel coronary artery disease Active Problems: Acute non-ST elevation myocardial infarction (NSTEMI) (CMS/HCC) (HCC) Tachy-sen syndrome (CMS/HCC) (HCC) Tobacco use disorder Peripheral vascular disease (HCC) Normocytic anemia Acute hypoxic respiratory failure (HCC) New onset of congestive heart failure (CMS/HCC) (HCC) Atrial fibrillation with RVR (CMS/HCC) (HCC) Prediabetes Diabetes mellitus (HCC) #Multivessel CAD with left main dx. #acute hypoxemic respiratory failure #Pulmonary edema #preop pulmonary edema #CHF #cellulitis #afib RVR #dm2 #htn #tobacco use Neuro/Psych: -delirium precautions. -Out of bed to chair as tolerated. Continue PT/OT. CV: Lab Results Component Value Date Pro BNP 17,963 (H) 07/28/2024 - [facility] (07/30/24) notable for severe 80% LM disease, and severe multivessel disease. - NPO for possible high risk PCI vs cabg - asa, atorvastatin - MARQUES, mild global hypokinesis, reduced EF 45-50% and DCCV (07/30/24). - amiodarone drip per HF - heparin drip - diuresis per HF - await CT surgery eval Resp: -Continue titrating O2 supplement to maintain O2 saturation above 92%. -Continue incentive spirometry. -optimize volume status. -CT chest (07/31)- Small bilateral pleural effusions, greater on the left. Dependent consolidative opacities with air bronchogram and surrounding groundglass in the bilateral lower lobes. Mild diffuse groundglass is associated with interlobular septal thickening. Scattered bilateral subsegmental atelectasis in both lungs. Minimal upper lobe predominant centrilobular emphysema. -PFT(07/31) - Restrictive ventilatory defect likely in setting of pulmonary edema and opacities seen on CT chest. GI/Nutrition:NPO Diet Last BM Date: 07/30/24 (07/31/24 0400) - NPO for now - bowel regimen - dc ppi Renal/Electrolytes:-Monitor urine output and optimize volume status. -Replete electrolytes as needed. Endo: Lab ResultsComponent Value Date Hgb A1C 6.45 (H) 07/31/2024 TSH 1.224 07/28/2024 -Continue insulin sliding scale. -Maintain fingersticks <180. Heme/Onc: Lab ResultsComponent Value Date INR 1.05 07/31/2024 INR 1.07 07/29/2024 PTT 114.9 (HH) 07/31/2024 PTT 48.7 (H) 07/30/2024 Plt Count 458 (H) 07/31/2024 Plt Count 378 07/30/2024 Plt Count 291 07/29/2024 Hgb 9.8 (L) 07/31/2024 Hgb 9.8 (L) 07/30/2024 Hgb 8.8 (L) 07/29/2024 - Continue heparin gtt. - Monitor H/H - Trend CBC ID: Lab ResultsComponent Value Date Procalcitonin 2.22 (HH) 07/28/2024 - Sp 5 day course of Unasyn for Cellulitis - fu Cx Msk/Skin/Deconditioned:-Consult PT/OT. -Continue wound care and sacral decubitus prevention. ICU Quality:HOB > 30 degrees Date of intubation: not applicable Restraints: No Stress Ulcer: Continue PPI PO DVT ppx: Continue heparin gtt. Lines: Not indicated. Perkins: Not Indicated. Tubes/Lines/Drains:Peripheral IV 07/28/24 Posterior;Right Hand (Active) Placement Date/Time: 07/28/24 0512 Hand Hygiene Completed: Yes Size (Gauge): 22 G Orientation: Posterior;Right Location: Hand Insertion attempts: 1 Number of days: 3 Peripheral IV 07/30/24 Left Forearm (Active)Placement Date/Time: 07/30/24 0000 Hand Hygiene Completed: Yes Orientation: Left Location: Forearm Site Prep: Alcohol Local Anesthetic: Injectable Technique: Anatomical landmarks Insertion attempts: 1 Number of days: 1 Code status: No Order Overall plan: CAD management, eval of CABG vs PCI This note was dictated with the use of [employer] speech recognition software.Please excuse any scientific technical writer errors. Vicky Barrera, PGY-4 [facility] HISTORY OF PRESENT ILLNESS:HPI Nichelle Hampton is a 69 y.o. female with past medical history of hypertension, diabetes mellitus (on no meds), reported history of coronary artery disease and tobacco use, was transferred from [facility] after C revealed severe left main disease and multivessel disease. She was originally admitted for hand cellulitis after a spider bite, but during that hospital stay she had hypoxic respiratory failure requiring BiPAP, NSTEMI, possibly newly diagnosed CHF (EF 45-50%), and Afib w/ RVR. She underwent a MARQUES w/ cardioversion. LHC and RHC on 07/31/23 which showed normal filling pressures, LHC which showed 80% mid to distal LM lesion extending into the ostium of LAD, 60-70% mid LAD, diffuse LCx and OM disease, and 70-80% proximal to mid RCA disease. She was transferred to [facility] for revascularizaton. Nichelle Hampton is a 69 y.o. female with past medical history of hypertension, diabetes mellitus (on no meds), reported history of coronary artery disease and tobacco use, was transferred from [facility] after C revealed severe left main disease and multivessel disease. She was originally admitted for hand cellulitis after a spider bite, but during that hospital stay she had hypoxic respiratory failure requiring BiPAP, NSTEMI, possibly newly diagnosed CHF (EF 45-50%), and Afib w/ RVR. She underwent a MARQUES w/ cardioversion. LHC and RHC on 07/31/23 which showed normal filling pressures, LHC which showed 80% mid to distal LM lesion extending into the ostium of LAD, 60-70% mid LAD, diffuse LCx and OM disease, and 70-80% proximal to mid RCA disease. She was transferred to [facility] for revascularizaton. No data found. Enter data into the [facility] Mental Health Specialist navigator to see it here. Assessment & PlanAssessment & Plan Subjective INTERVAL EVENTS: [_]Temp (24hrs), Av.8 ?C (98.3 ?F), Min:36.8 ?C (98.2 ?F), Max:36.8 ?C (98.3 ?F) No data recordedI/O last 3 completed shifts: In: 1341.2 (24 mL/kg) [P.O.:300; I.V.:991.2 (17.7 mL/kg); IV Piggyback:50] Out: 775 (13.9 mL/kg) [Urine:775 (0.4 mL/kg/hr)] Weight: 55.9 kg No data found.No data found. PAST MEDICAL HISTORY:Medical History[2] PAST SURGICAL HISTORY:Surgical History[3] FAMILY HISTORY:Family History[4] SOCIAL HISTORY:Social History Socioeconomic HistoryMarital status: Spouse name: Not on file Number of children: Not on file Years of education: Not on file Highest education level: Not on file Occupational History Not on file Tobacco Use Smoking status: Former Current packs/day: 0.00 Types: Cigarettes Quit date: 1967 Years since quittin.2 Smokeless tobacco: Current Tobacco comments: PATIENT VERBALIZED "WELL NOW THAT I AM IN THE HOSPITAL, I CAN'T REALLY SMOKE Vaping Use Vaping status: Not on file Substance and Sexual Activity Alcohol use: Yes Alcohol/week: 6.0 standard drinks of alcohol Types: 6 Cans of beer per week Comment: [place] EVERYOTHER WEEKEND Drug use: Never Sexual activity: Not Currently Other Topics Concern Not on file Social History Narrative Not on file Social Drivers of Health Financial Resource Strain: Not on fileFood Insecurity: No Food Insecurity (07/31/2024) Hunger Vital Sign Worried About Running Out of Food in the Last Year: Never true Ran Out of Food in the Last Year: Never true Transportation Needs: No Transportation Needs (07/31/2024) PRAPARE - Transportation Lack of Transportation (Medical): No Lack of Transportation (Non-Medical): No Physical Activity: Not on file Stress: Not on file Social Connections: Not on file Intimate Partner Violence: Not At Risk (07/31/2024) Humiliation, Afraid, Rape, and Kick questionnaire Fear of Current or Ex-Partner: No Emotionally Abused: No Physically Abused: No Sexually Abused: No Housing Stability: Low Risk (07/31/2024) Housing Stability Vital Sign Unable to Pay for Housing in the Last Year: No Number of Times Moved in the Last Year: 0 Homeless in the Last Year: No ALLERGIES: Allergies[5] HOME MEDICATIONS:Medication Documentation Review Audit Reviewed by Sohail Garsia RN (Registered Nurse) on 08/01/24 at 1012 Medication Order Taking? Sig Documenting Provider Last Dose Statusevolocumab (Repatha SureClick) 140 MG/ML Subcutaneous Solution Auto-injector [id number] Inject 1 mL under the skin every 14 days. Leila Lozano, HAILEY Active amiodarone, 200 mg, Oral, BID aspirin, 81 mg, Oral, Daily atorvastatin, 40 mg, Oral, Daily polyethylene glycol (PEG) 3350, 17 g, Oral, Daily sennosides, 1 tablet, Oral, BID sodium chloride, 10 mL, Intravenous, q12h DARYL heparin, 0.1-40 Units/kg/hr, Last Rate: 18 Units/kg/hr (08/03/24 1000) PRN medications: calcium gluconate, dextrose, dextrose, glucagon, insulinlispro, magnesium sulfate, potassium & sodium phosphates OR potassium & sodium phosphates, potassium chloride OR potassium chloride OR potassium chloride OR Potassium chloride, sodium chloride, sodium phosphates 45 mmol in sodium chloride 0.9 % 100 mL IVPB PHYSICAL EXAM:Gen: PE_Gen: AAOx3; NAD Neuro: No focal deficits appreciated HEENT: PERRL; EOMI; No scleral icterus CV/Pulses: PE_CV: RRR; 2+ peripheral pulses Pulm: Decreased breath sounds at the bases; No wheezing GI: BS (+); Soft; NTND : Deferred MS: Tone intact Skin/Ext: No changes in lesions; 1+ pitting edema LABS:Pertinent Labs : Lab Results Component Value Date WBC 19.12 (H) 08/03/2024 POC V Hgb Tot 9.1 (L) 08/02/2024 Hgb 9.0 (L) 08/03/2024 POC V Hct (calc) 27.0 (L) 08/02/2024 Hct 27.3 (L) 08/03/2024 Plt Count 571 (H) 08/03/2024 Lab ResultsComponent Value Date POC V Na 130 (L) 08/02/2024 Sodium Lvl 135 (L) 08/03/2024 POC V K 3.7 08/02/2024 Potassium Lvl 3.8 08/03/2024 POC V Cl 101 08/02/2024 Chloride Lvl 101 08/03/2024 CO2 Lvl 25.1 08/03/2024 BUN 14 08/03/2024 Creatinine Lvl 0.74 08/03/2024 POC V Glu 179 (H) 08/02/2024 Glucose Lvl 157 (H) 08/03/2024 POC Glu 224 (H) 08/03/2024 Lab ResultsComponent Value Date Calcium Lvl 8.7 08/03/2024 Magnesium 1.87 08/03/2024 Phosphorus Lvl 3.7 08/03/2024 Lab ResultsComponent Value Date AST 27 08/03/2024 ALT 21 08/03/2024 Alkaline Phosphatase 75 08/03/2024 Lab ResultsComponent Value Date PTT 48.7 (H) 08/03/2024 Prothrombin Time (PT) 14.2 08/03/2024 INR 1.08 08/03/2024 No results found for: "COLORU", "CLARITYU", "SPECGRAV", "PHUR", "PROTUR", "GLUCOSEU", "KETONESU", "NITRITEU", "LEUKOCYTESUR", "BILIRUBINUR", "UROBILINOGEN" Lab Results Component Value Date HS Troponin I 55 (H) 08/02/2024 IMAGING:@IMAGES@ EKG:Encounter Date: 07/31/24 ECG 12 lead Result Value Ventricular Rate 66 Atrial Rate 66 WY Interval 132 QRS Duration 70 QT/QTc 418 QTc Calculation 438 P-Dayton 24 R-Dayton -27 T-Dayton 32 Impression SINUS RHYTHM NORMAL ECG WHEN COMPARED WITH ECG OF 30-JUL-2024 14:12, SINUS RHYTHM HAS REPLACED ATRIAL FIBRILLATION RATE HAS DECREASED CRITERIA FOR ANTERIOR INFARCTION NO LONGER PRESENT Confirmed by Jaiden Liriano ([id number]) on 07/31/2024 5:22:03 PM ECHO: Transthoracic echo (TTE) complete 07/31/2024 Interpretation SummaryLeft Ventricle: Left ventricle size is normal. Findings consistent with eccentric hypertrophy. Mild global hypokinesis present. Mildly reduced systolic function with an estimated EF of 45 - 50%. Grade I diastolic dysfunction of the left ventricle. Apical thrombus is not present verified by the use of contrast. Right Ventricle: Right ventricle size is normal. Normal systolic function in the right ventricle. TAPSE is 19 mm. Pericardium: No pericardial effusion present. Transesophageal echo (MARQUES) with possible cardioversion 07/30/2024 Interpretation SummaryLeft Ventricle: Left ventricle size is normal. Mild global hypokinesis present. Reduced systolic function with an estimated EF of 45 - 50%. Right Ventricle: Right ventricle size is normal. Normal systolic function in the right ventricle. Left Atrium: Normal sized left atrial appendage. No thrombus in left atrium present. Transthoracic echo (TTE) complete 07/28/2024 Interpretation SummaryPatient is in atrial fibrillation with RVR at the time of this study. LV systolic function assessment is suboptimal. Left Ventricle: Left ventricle size is normal. Mild global hypokinesis present. Mildly reduced systolic function with an estimated EF of 45 - 50%. Right Ventricle: Right ventricle size is normal. Normal systolic function in the right ventricle. Left Atrium: Left atrium is moderately dilated. Mitral Valve: Moderate mitral regurgitation present. Tricuspid Valve: Mild to moderate tricuspid regurgitation present. Mild to moderate pulmonary hypertension present. RVSP is 46.00 mmHg. Pericardium: Trivial pericardial effusion present. Left pleural effusion present. [1] Patient Active Problem List Diagnosis New onset of congestive heart failure (CMS/HCC) (HCC) Cellulitis Atrial fibrillation with RVR (CMS/HCC) (HCC) Prediabetes Elevated troponin Hypertension Tobacco use Coronary artery disease Hyponatremia Hyperglycemia Pulmonary edema cardiac cause (CMS/HCC) (HCC) Triple vessel coronary artery disease Acute non-ST elevation myocardial infarction (NSTEMI) (CMS/HCC) (HCC) Tachy-sen syndrome (CMS/HCC) (HCC) Tobacco use disorder Peripheral vascular disease (HCC) Normocytic anemia Diabetes mellitus (HCC) Compression fracture of T10 vertebra (HCC) [2] Past Medical History: Diagnosis Date Diabetes mellitus (HCC) PATIENT CLAIMED THAT SHE HAS DIABETES [3] History reviewed. No pertinent surgical history. [4] Family History: Problem Relation Name Age of Onset Diabetes Mother No Known Problems Father [5] No Known Allergies Cosigned by Demarcus Naranjo MD at 08/03/2024 5:26 PM CDT * Demarcus Naranjo MD - 08/03/2024 11:25 AM CDT PCCM Attending Note Acute events overnight: None Diagnosis: #Multivessel CAD with left main dx. #acute hypoxemic respiratory failure #Pulmonary edema #preop pulmonary edema #CHF #cellulitis #afib RVR #dm2 #htn #tobacco use Assessment: MARQUES, mild global hypokinesis, reduced EF 45-50% and DCCV (07/30/24) LHC (07/30/24) notable for severe 80% LM disease, and severe multivessel disease Worsening leukocytosis -> no fever Plan: Oxygen by NC Delirium precautions Aspirin and statin High risk PCI vs CABG eval ongoing PO amiodarone SSI Diet Continue wound care and sacral decubitus prevention Hemodynamic medication Quality: No central line Heparin drip No perkins No restraints Bowel regimen This patient is critically ill due to presenting with an illness that impairs one or more vital organ systems. There was a high probability of imminent or life threatening deterioration in the patient's condition. I spent 35 min min min cumulative minutes of non-concurrent critical care time directly related to this individual patient's care involving the evaluation, coordination, and management of the patient. This includes only time spent at the immediate bedside or elsewhere on the patient's floor or unit coordinating this patient's care and is not inclusive of any time spent performing invasive procedures. Demarcus Naranjo MD Critical Care Medicine * Brandin Marks MD - 08/02/2024 3:23 PM CDT [facility] ICU PROGRESS NOTE Subjective No acute events overnight; she is still pending workup from cardiac surgery and IC teams. No chest pain, resting comfortably. Objective Last Recorded Vitals Blood pressure (!) 111/55, pulse 71, temperature 37.3 ?C (99.1 ?F), resp. rate (!) 30, height 1.61 m (5' 3.39"), weight 55.9 kg (123 lb 3.8 oz), SpO2 98%. Physical Exam: GEN: lying down comfortably, not in acute distress HEENT: normal conjuctivae, anicteric sclera neck: no JVD , supple, normal ROM CV: RRR s1s2 no mrg, pulse +2 resp: CTAB, no wheezing/crackles GI: soft, non tender MSK: no joint swelling or pain to palpation extremities: no edema, clubbing or cyanosis Neuro: AOx3, moving all extremities, speech normal Skin: no new rashes, bruises TTE: Left Ventricle: Left ventricle size is normal. Findings consistent with eccentric hypertrophy. Mild global hypokinesis present. Mildly reduced systolic function with an estimated EF of 45 - 50%. Grade I diastolic dysfunction of the left ventricle. Apical thrombus is not present verified by the use of contrast. Right Ventricle: Right ventricle size is normal. Normal systolic function in the right ventricle. TAPSE is 19 mm. Pericardium: No pericardial effusion present. Assessment & Plan Triple vessel coronary artery disease Acute non-ST elevation myocardial infarction (NSTEMI) (CMS/HCC) ([facility]) - No chest pain - Lipids: continue atorvastatin 40 mg PO daily - Antiplatelet: continue aspirin 81 mg PO daily; no P2Y12 inhibitor for now until we finalize intervention plans - Pending decisions rearding optimal revascularization strategy given LM disease and multivessel CAD between CV surgery and interventional cardiology New onset of congestive heart failure (CMS/HCC) ([facility]) - Repeat TTE reviewed; will look to start guideline therapy after workup plan is finalized for CABG vs. Multi-vessel PCI - Currently euvolemic and not in decompensated state Acute hypoxic respiratory failure (HCC) (Resolved: 08/02/2024) - Volume status: euvolemic - PRN diuresis Tachy-sen syndrome (CMS/HCC) (HCC) - Likely ischemia-related; will reassess rhythm and rate status after re-vascularization - Continue telemetry monitoring while inpatient Atrial fibrillation with RVR (CMS/HCC) (HCC) - Anticoagulation: heparin drip while hospitalized; DOAC after procedures/surgery - Rhythm control: HOLD amiodarone for now - Rate control: holding for low HR and soft blood pressure Compression fracture of T10 vertebra (HCC) - Incidental finding noted on admission CT - No surgical intervention at this time per ortho spine team Peripheral vascular disease (HCC) - Follow up arterial doppler ultrasound - Consider carotid ultrasound if considering CABG - Statin and antiplatelets as above (see CAD section) Prediabetes - Sliding scale insulin Current Diet: Adult Diet Heart Healthy Cosigned by Cruz Solomon MD at 08/02/2024 10:19 PM CDT Associated attestation - Cruz Mccabe MD - 08/02/2024 10:19 PM CDT Cardiology Staff Attestation I have seen and examined the patient with Dr. Marks on 08/02/2024. I have reviewed all the clinical information, lab investigations, radiographic and other imaging data. I agree with findings, assessment and plan as outlined. Treatment plan was formulated under my direct supervision. 69 yo F with history of HTN, HLD, diagnosed NSTEMI (OSH). Work-up showed MV-CAD (Distal LM: 80% into oLAD, p-mLAD: 60-70%, p-mRCA: long 70-80%, LCx: OM with diffuse disease - RA: 4. PA: 36/12 (22). W: 12-14 -CO/CI: 3.4/2.2). Hospital admission c/w new diagnosis of paroxysmal AFib RVR s/p DCCV (07/30/24). TTE: LVEF: 45-50% - LVEDd: [address] chest revealed T10 transverse. Pending MRI report. Possible evaluation by neurosurgery vs. Ortho spine. Hemodynamically stable. Not on vasoppressors or inotropic support. -- No events.Asymptomatic from the cardiovascular standpoint since admission. AFib. On Amiodarone. Evaluated by Ortho spine due to vertebral fractures. No surgical intervention required at this time. Patient was evaluated by CT surgery and interventional cardiology. Pleasefollow their recommendations. Active medical conditions, plan and recommendations were discussed in lengthwith the patient. All the questions were answered. This patient is critically ill. The patient care involves high complexitymedical decision making and ICU level of care. There was a high probability of imminent life-threatening deterioration in the patient's condition. I spent 45 minutes of critical care time with this patient. This is the total time I spent evaluating, coordinating, managing and providing care to the patient as well as time spent in documenting such activities. This time is exclusive of time required to perform procedures required during patient management. (This note was dictated using voice recognition speech to text software and may contain inadvertent recognition errors). * Gautam Stapleton, PT - 08/02/2024 3:21 PM CDT Physical Therapy Encounter Note Patient Name: Nichelle Hampton Today's Date: 08/02/2024 Missed Treatment Time and Reason TIME IN: 1521 TIME OUT: 1612 "TLSO Brace Therapy Fitting" order sent on 08/01 (@20:46). Pt's chart reviewed which revealed pt's height at 5'4"; MaxAlign TLSO short obtained. PT spoke to pt's nurse prior to seeing pt; cleared for brace fitting. Pt supine in bed (with HOB ~30*) upon arrival; was agreeable upon PT introduction & explanation of purpose of visit. Pt was educated on spinal precautions; emphasis given on log-rolling which was most pertinent to brace fitting. Pt was also informed of MD orders (as per chart) which was to have brace on when OOB. Pt verbalized understanding of education/instruction provided. Based on measurement of pt's waist (32"), TLSO fitted to "zone 2". Pt was then assisted with donning of TLSO; significant pain/discomfort noted when rolling back over the TLSO. Pt was advised to consult with (Ortho) if she will be allowed to first sit up to EOB (while maintaining spinal precautions), afterwhich don the TLSO. Once seated on EOB, pt with minimal complaints of pain/discomfort. Pt was also assisted with getting OOB as well ambulating down the smith; currently requires CGA>min A (x1) with functional mobility. PT then noted that orders are only for brace fitting with no "PT Eval & Treat" orders in place. Please send a PT consult as MD deems appropriate. Pt was left sitting up in chair (at bedside) upon PT's departure; pt with stable VS & in no apparent distress. Pt's nurse was notified. Gautam Stapleton PT * Neda Hdez MD - 08/02/2024 1:11 PM CDT ID PULMONARY CRITICAL CARE MEDICINE - NoteType: PROGRESS NOTE Patient ID: @[email or web address]@ is a 69 y.o. female. Chief Complaint: No chief complaint on file. Admission date: 07/31/2024 Referring Physician: Leila Lozano NP Reason for Consult: Reason For Consult: Critical care management ASSESSMENT/PLAN: Problem List: Principal Problem: Triple vessel coronary artery disease Active Problems: Acute non-ST elevation myocardial infarction (NSTEMI) (CMS/HCC) (HCC) Tachy-sen syndrome (CMS/HCC) (HCC) Tobacco use disorder Peripheral vascular disease (HCC) Normocytic anemia Compression fracture of T10 vertebra (HCC) Acute hypoxic respiratory failure (HCC) New onset of congestive heart failure (CMS/HCC) (HCC) Atrial fibrillation with RVR (CMS/HCC) (HCC) Prediabetes Diabetes mellitus (HCC) Problem List[1] Principal Problem: Triple vessel coronary artery disease Active Problems: Acute non-ST elevation myocardial infarction (NSTEMI) (CMS/HCC) (HCC) Tachy-sen syndrome (CMS/HCC) (HCC) Tobacco use disorder Peripheral vascular disease (HCC) Normocytic anemia Acute hypoxic respiratory failure (HCC) New onset of congestive heart failure (CMS/HCC) (HCC) Atrial fibrillation with RVR (CMS/HCC) (HCC) Prediabetes Diabetes mellitus (HCC) #Multivessel CAD with left main dx. #acute hypoxemic respiratory failure #Pulmonary edema #preop pulmonary edema #CHF #cellulitis #afib RVR #dm2 #htn #tobacco use Neuro/Psych: -delirium precautions. -Out of bed to chair as tolerated. Continue PT/OT. CV: Lab Results Component Value Date Pro BNP 17,963 (H) 07/28/2024 - LHC (07/30/24) notable for severe 80% LM disease, and severe multivessel disease. - eval for possible high risk PCI vs cabg - asa, atorvastatin - MARQUES, mild global hypokinesis, reduced EF 45-50% and DCCV (07/30/24). - amiodarone drip per HF - heparin drip - diuresis per HF - await CT surgery eval Resp: -Continue titrating O2 supplement to maintain O2 saturation above 92%. -Continue incentive spirometry. -optimize volume status. -CT chest (07/31)- Small bilateral pleural effusions, greater on the left. Dependent consolidative opacities with air bronchogram and surrounding groundglass in the bilateral lower lobes. Mild diffuse groundglass is associated with interlobular septal thickening. Scattered bilateral subsegmental atelectasis in both lungs. Minimal upper lobe predominant centrilobular emphysema. -PFT(07/31) - Restrictive ventilatory defect likely in setting of pulmonary edema and opacities seen on CT chest. GI/Nutrition: Last BM Date: 07/30/24 (07/31/24 0400)- bowel regimen - dc ppi Renal/Electrolytes:-Monitor urine output and optimize volume status. -Replete electrolytes as needed. Endo: Lab ResultsComponent Value Date Hgb A1C 6.45 (H) 07/31/2024 TSH 1.224 07/28/2024 -Continue insulin sliding scale. -Maintain fingersticks <180. Heme/Onc: Lab ResultsComponent Value Date INR 1.05 07/31/2024 INR 1.07 07/29/2024 PTT 114.9 (HH) 07/31/2024 PTT 48.7 (H) 07/30/2024 Plt Count 458 (H) 07/31/2024 Plt Count 378 07/30/2024 Plt Count 291 07/29/2024 Hgb 9.8 (L) 07/31/2024 Hgb 9.8 (L) 07/30/2024 Hgb 8.8 (L) 07/29/2024 - Continue heparin gtt. - Monitor H/H - Trend CBC ID: Lab ResultsComponent Value Date Procalcitonin 2.22 (HH) 07/28/2024 - Sp 5 day course of Unasyn for Cellulitis - fu Cx Msk/Skin/Deconditioned:-Consult PT/OT. -Continue wound care and sacral decubitus prevention. ICU Quality:HOB > 30 degrees Date of intubation: not applicable Restraints: No Stress Ulcer: Continue PPI PO DVT ppx: Continue heparin gtt. Lines: Not indicated. Perkins: Not Indicated. Tubes/Lines/Drains:Peripheral IV 07/28/24 Posterior;Right Hand (Active) Placement Date/Time: 07/28/24 0512 Hand Hygiene Completed: Yes Size (Gauge): 22 G Orientation: Posterior;Right Location: Hand Insertion attempts: 1 Number of days: 3 Peripheral IV 07/30/24 Left Forearm (Active)Placement Date/Time: 07/30/24 0000 Hand Hygiene Completed: Yes Orientation: Left Location: Forearm Site Prep: Alcohol Local Anesthetic: Injectable Technique: Anatomical landmarks Insertion attempts: 1 Number of days: 1 Code status: No Order Overall plan: CAD management, eval of CABG vs PCI This note was dictated with the use of [employer] speech recognition software.Please excuse any scientific technical writer errors. Vicky Barrera, PGY-4 [facility] Pulmonary [facility] Critical Care Medicine HISTORY OF PRESENT ILLNESS:HPI Nichelle Hampton is a 69 y.o. female with past medical history of hypertension, diabetes mellitus (on no meds), reported history of coronary artery disease and tobacco use, was transferred from [facility] after C revealed severe left main disease and multivessel disease. She was originally admitted for hand cellulitis after a spider bite, but during that hospital stay she had hypoxic respiratory failure requiring BiPAP, NSTEMI, possibly newly diagnosed CHF (EF 45-50%), and Afib w/ RVR. She underwent a MARQUES w/ cardioversion. LHC and RHC on 07/31/23 which showed normal filling pressures, LHC which showed 80% mid to distal LM lesion extending into the ostium of LAD, 60-70% mid LAD, diffuse LCx and OM disease, and 70-80% proximal to mid RCA disease. She was transferred to [facility] for revascularizaton. Nichelle Hampton is a 69 y.o. female with past medical history of hypertension, diabetes mellitus (on no meds), reported history of coronary artery disease and tobacco use, was transferred from [facility] after LHC revealed severe left main disease and multivessel disease. She was originally admitted for hand cellulitis after a spider bite, but during that hospital stay she had hypoxic respiratory failure requiring BiPAP, NSTEMI, possibly newly diagnosed CHF (EF 45-50%), and Afib w/ RVR. She underwent a MARQUES w/ cardioversion. LHC and RHC on 07/31/23 which showed normal filling pressures, LHC which showed 80% mid to distal LM lesion extending into the ostium of LAD, 60-70% mid LAD, diffuse LCx and OM disease, and 70-80% proximal to mid RCA disease. She was transferred to [facility] for revascularizaton. No data found. Enter data into the [facility] Mental Health Specialist navigator to see it here. Assessment & PlanAssessment & Plan Subjective INTERVAL EVENTS: [_]Temp (24hrs), Av.9 ?C (98.4 ?F), Min:36.7 ?C (98.1 ?F), Max:37.3 ?C (99.1 ?F) No data recordedI/O last 3 completed shifts: In: 1614.5 (28.9 mL/kg) [P.O.:100; I.V.:1514.5 (27.1 mL/kg)] Out: 750 (13.4 mL/kg) [Urine:750 (0.4 mL/kg/hr)] Weight: 55.9 kg No data found.No data found. PAST MEDICAL HISTORY:Medical History[2] PAST SURGICAL HISTORY:Surgical History[3] FAMILY HISTORY:Family History[4] SOCIAL HISTORY:Social History Socioeconomic HistoryMarital status: Spouse name: Not on file Number of children: Not on file Years of education: Not on file Highest education level: Not on file Occupational History Not on file Tobacco Use Smoking status: Former Current packs/day: 0.00 Types: Cigarettes Quit date: 1967 Years since quittin.2 Smokeless tobacco: Current Tobacco comments: PATIENT VERBALIZED "WELL NOW THAT I AM IN THE HOSPITAL, I CAN'T REALLY SMOKE Vaping Use Vaping status: Not on file Substance and Sexual Activity Alcohol use: Yes Alcohol/week: 6.0 standard drinks of alcohol Types: 6 Cans of beer per week Comment: [place] EVERYOTHER WEEKEND Drug use: Never Sexual activity: Not Currently Other Topics Concern Not on file Social History Narrative Not on file Social Drivers of Health Financial Resource Strain: Not on fileFood Insecurity: No Food Insecurity (07/31/2024) Hunger Vital Sign Worried About Running Out of Food in the Last Year: Never true Ran Out of Food in the Last Year: Never true Transportation Needs: No Transportation Needs (07/31/2024) PRAPARE - Transportation Lack of Transportation (Medical): No Lack of Transportation (Non-Medical): No Physical Activity: Not on file Stress: Not on file Social Connections: Not on file Intimate Partner Violence: Not At Risk (07/31/2024) Humiliation, Afraid, Rape, and Kick questionnaire Fear of Current or Ex-Partner: No Emotionally Abused: No Physically Abused: No Sexually Abused: No Housing Stability: Low Risk (07/31/2024) Housing Stability Vital Sign Unable to Pay for Housing in the Last Year: No Number of Times Moved in the Last Year: 0 Homeless in the Last Year: No ALLERGIES: Allergies[5] HOME MEDICATIONS:Medication Documentation Review Audit Reviewed by Sohail Garsia RN (Registered Nurse) on 08/01/24 at 1012 Medication Order Taking? Sig Documenting Provider Last Dose Statusevolocumab (Repatha SureClick) 140 MG/ML Subcutaneous Solution Auto-injector [id number] Inject 1 mL under the skin every 14 days. eLila Lozano, DANCE TEACHER Active aspirin, 81 mg, Oral, Daily atorvastatin, 40 mg, Oral, Daily niCARdipine, , , polyethylene glycol (PEG) 3350, 17 g, Oral, Daily sennosides, 1 tablet, Oral, BID sodium chloride, 10 mL, Intravenous, q12h DARYL amiodarone, 0.5 mg/min, Last Rate: 0.5 mg/min (08/02/24899)heparin, 0.1-40 Units/kg/hr, Last Rate: 16 Units/kg/hr (08/02/24899) PRN medications: calcium gluconate, dextrose, dextrose, glucagon, insulinlispro, magnesium sulfate, niCARdipine, potassium & sodium phosphates OR potassium & sodium phosphates, potassium chloride OR potassium chloride OR potassium chloride OR Potassium chloride, sodium chloride, sodium phosphates 45 mmol in sodium chloride 0.9 % 100 mL IVPB PHYSICAL EXAM:Gen: PE_Gen: AAOx3; NAD Neuro: No focal deficits appreciated HEENT: PERRL; EOMI; No scleral icterus CV/Pulses: PE_CV: RRR; 2+ peripheral pulses Pulm: Decreased breath sounds at the bases; No wheezing GI: BS (+); Soft; NTND : Deferred MS: Tone intact Skin/Ext: No changes in lesions; 1+ pitting edema LABS:Pertinent Labs : Lab Results Component Value Date WBC 12.25 (H) 08/02/2024 Hgb 8.9 (L) 08/02/2024 Hct 27.0 (L) 08/02/2024 Plt Count 532 (H) 08/02/2024 Lab ResultsComponent Value Date Sodium Lvl 138 08/02/2024 Potassium Lvl 3.8 08/02/2024 Chloride Lvl 103 08/02/2024 CO2 Lvl 27.9 08/02/2024 BUN 16 08/02/2024 Creatinine Lvl 0.75 08/02/2024 Glucose Lvl 165 (H) 08/02/2024 Lab ResultsComponent Value Date Calcium Lvl 8.4 08/02/2024 Magnesium 1.91 08/02/2024 Phosphorus Lvl 3.7 08/02/2024 Lab ResultsComponent Value Date AST 19 08/02/2024 ALT 12 08/02/2024 Alkaline Phosphatase 72 08/02/2024 Lab ResultsComponent Value Date PTT 66.0 (H) 08/02/2024 Prothrombin Time (PT) 14.5 08/02/2024 INR 1.11 08/02/2024 No results found for: "COLORU", "CLARITYU", "SPECGRAV", "PHUR", "PROTUR", "GLUCOSEU", "KETONESU", "NITRITEU", "LEUKOCYTESUR", "BILIRUBINUR", "UROBILINOGEN" Lab Results Component Value Date HS Troponin I 347 (H) 07/31/2024 IMAGING:@IMAGES@ EKG:Encounter Date: 07/31/24 ECG 12 lead Result Value Ventricular Rate 66 Atrial Rate 66 W[place] Interval 132 QRS Duration 70 QT/QTc 418 QTc Calculation 438 P-Dayton 24 R-Dayton -27 T-Dayton 32 Impression SINUS RHYTHM NORMAL ECG WHEN COMPARED WITH ECG OF 30-JUL-2024 14:12, SINUS RHYTHM HAS REPLACED ATRIAL FIBRILLATION RATE HAS DECREASED CRITERIA FOR ANTERIOR INFARCTION NO LONGER PRESENT Confirmed by Jaiden Liriano ([id number]) on 07/31/2024 5:22:03 PM ECHO: Transthoracic echo (TTE) complete 07/31/2024 Interpretation SummaryLeft Ventricle: Left ventricle size is normal. Findings consistent with eccentric hypertrophy. Mild global hypokinesis present. Mildly reduced systolic function with an estimated EF of 45 - 50%. Grade I diastolic dysfunction of the left ventricle. Apical thrombus is not present verified by the use of contrast. Right Ventricle: Right ventricle size is normal. Normal systolic function in the right ventricle. TAPSE is 19 mm. Pericardium: No pericardial effusion present. Transesophageal echo (MARQUES) with possible cardioversion 07/30/2024 Interpretation SummaryLeft Ventricle: Left ventricle size is normal. Mild global hypokinesis present. Reduced systolic function with an estimated EF of 45 - 50%. Right Ventricle: Right ventricle size is normal. Normal systolic function in the right ventricle. Left Atrium: Normal sized left atrial appendage. No thrombus in left atrium present. Transthoracic echo (TTE) complete 07/28/2024 Interpretation SummaryPatient is in atrial fibrillation with RVR at the time of this study. LV systolic function assessment is suboptimal. Left Ventricle: Left ventricle size is normal. Mild global hypokinesis present. Mildly reduced systolic function with an estimated EF of 45 - 50%. Right Ventricle: Right ventricle size is normal. Normal systolic function in the right ventricle. Left Atrium: Left atrium is moderately dilated. Mitral Valve: Moderate mitral regurgitation present. Tricuspid Valve: Mild to moderate tricuspid regurgitation present. Mild to moderate pulmonary hypertension present. RVSP is 46.00 mmHg. Pericardium: Trivial pericardial effusion present. Left pleural effusion present. [1] Patient Active Problem List Diagnosis Acute hypoxic respiratory failure (HCC) New onset of congestive heart failure (CMS/HCC) (HCC) Cellulitis Atrial fibrillation with RVR (CMS/HCC) (HCC) Prediabetes Elevated troponin Hypertension Tobacco use Coronary artery disease Hyponatremia Hyperglycemia Pulmonary edema cardiac cause (CMS/HCC) (HCC) Triple vessel coronary artery disease Acute non-ST elevation myocardial infarction (NSTEMI) (CMS/HCC) (HCC) Tachy-sen syndrome (CMS/HCC) (HCC) Tobacco use disorder Peripheral vascular disease (HCC) Normocytic anemia Diabetes mellitus (HCC) Compression fracture of T10 vertebra (HCC) [2] Past Medical History: Diagnosis Date Diabetes mellitus (HCC) PATIENT CLAIMED THAT SHE HAS DIABETES [3] History reviewed. No pertinent surgical history. [4] Family History: Problem Relation Name Age of Onset Diabetes Mother No Known Problems Father [5] No Known Allergies Cosigned by Demarcus Naranjo MD at 08/02/2024 5:41 PM CDT * Tino Pickens RN - 08/02/2024 12:47 PM CDT CASE MANAGEMENT ROUTINE DISCHARGE PLAN NOTE LOS: 2 Barriers to Discharge: Heparin and Amio drips. Pending heart team discussion regarding optimal revascularization strategy DISCHARGE PLAN A: Home DISCHARGE PLAN B: n/a MILENA: 3-5 days * Demarcus Naranjo MD - 08/02/2024 11:09 AM CDT PCCM Attending Note Acute events overnight: None #Multivessel CAD with left main dx. #acute hypoxemic respiratory failure #Pulmonary edema #preop pulmonary edema #CHF #cellulitis #afib RVR #dm2 #htn #tobacco use Assessment: MARQUES, mild global hypokinesis, reduced EF 45-50% and DCCV (07/30/24) LHC (07/30/24) notable for severe 80% LM disease, and severe multivessel disease Plan: Oxygen by NC Delirium precautions Aspirin and statin Amiodarone drip on hold due to hypotension SSI Diet Continue wound care and sacral decubitus prevention Hemodynamic medication Quality: No central line Heparin drip No perkins No restraints Bowel regimen This patient is critically ill due to presenting with an illness that impairs one or more vital organ systems. There was a high probability of imminent or life threatening deterioration in the patient's condition. I spent 35 min cumulative minutes of non-concurrent critical care time directly related to this individual patient's care involving the evaluation, coordination, and management of the patient. This includes only time spent at the immediate bedside or elsewhere on the patient's floor or unit coordinating this patient's care and is not inclusive of any time spent performing invasive procedures. Demarcus Naranjo MD Critical Care Medicine * Bradly Alcala Jr., MD - 08/02/2024 7:18 AM CDT ORS Spine Brief Note Xrays of the Thoracic spine reviewed and found to be appropriate for non-operative management - CT scan of the cervical and lumbar spine ordered given extension type injury in the setting of DISH - Spine precautions: TLSO brace when out of bed - Activity as tolerated - Ok for DVT prophylaxis per primary team. - Pending ORS Spine Surgeries: None. Ok for discharge once cleared by primary team and CT scans of the cervical spine and lumbar spine have been completed and reviewed. Please page the ORS Spine resident through the band aid machine operator for questions or call [phone] Tuesday - Tuesday between 6 am and 4 pm. Please call [phone]) for emergencies. Bradly Alcala Jr., MD * Brandin Marks MD - 08/01/2024 8:34 PM CDT [facility] ICU PROGRESS NOTE Subjective No acute events overnight; she is still pending workup from cardiac surgery and IC teams. No chest pain, resting comfortably. Objective Last Recorded Vitals Blood pressure (!) 109/53, pulse 74, temperature 36.8 ?C (98.2 ?F), temperature source Oral, resp. rate (!) 35, height 1.61 m (5' 3.39"), weight 55.9 kg (123 lb 3.8 oz), SpO2 98%. Physical Exam: GEN: lying down comfortably, not in acute distress HEENT: normal conjuctivae, anicteric sclera neck: no JVD , supple, normal ROM CV: RRR s1s2 no mrg, pulse +2 resp: CTAB, no wheezing/crackles GI: soft, non tender MSK: no joint swelling or pain to palpation extremities: no edema, clubbing or cyanosis Neuro: AOx3, moving all extremities, speech normal Skin: no new rashes, bruises TTE: Left Ventricle: Left ventricle size is normal. Findings consistent with eccentric hypertrophy. Mild global hypokinesis present. Mildly reduced systolic function with an estimated EF of 45 - 50%. Grade I diastolic dysfunction of the left ventricle. Apical thrombus is not present verified by the use of contrast. Right Ventricle: Right ventricle size is normal. Normal systolic function in the right ventricle. TAPSE is 19 mm. Pericardium: No pericardial effusion present. Assessment & Plan Triple vessel coronary artery disease Acute non-ST elevation myocardial infarction (NSTEMI) (CMS/HCC) (HCC) - Heparin gtt while inpatient - No chest pain - Down-trending troponin since initial workup - Start atorvastatin 40 mg PO daily - Start aspirin 81 mg PO daily - No P2Y12 inhibitor for now until we finalize intervention plans - Pending heart team discussion in morning regarding optimal revascularization strategy given LM disease and multivessel CAD New onset of congestive heart failure (CMS/HCC) ([facility]) - Repeat TTE reviewed; will look to start guideline therapy after workup plan is finalized for CABG vs. Multi-vessel PCI - Currently euvolemic and not in decompensated state Acute hypoxic respiratory failure (HCC) - Repeat CXR - Will consider diuresis in AM Tachy-sen syndrome (CMS/HCC) ([facility]) - Likely ischemia-related; will reassess rhythm and rate status after re-vascularization - Continue telemetry monitoring while inpatient Atrial fibrillation with RVR (CMS/HCC) ([facility]) - Continue heparin drip while hospitalized - HOLD amiodarone for now - Consider EP consult in morning for tachybrady syndrome. Etiology concerning for ischemia to SA node. Compression fracture of T10 vertebra ([facility]) - Incidental finding noted on admission CT - Pending evaluation from thoracic spine orthopedics team Peripheral vascular disease ([facility]) - Follow up arterial doppler ultrasound - Consider carotid ultrasound if considering CABG - Statin and antiplatelets as above (see CAD section) Prediabetes - Sliding scale insulin Normocytic anemia - Consider reticulocyte count, ferritin, TIBC/iron saturation, folate, and vitamin B12 in AM Tobacco use disorder - Outpatient PFT's to screen for COPD after hospitalization - Tobacco cessation counseling in morning Diabetes mellitus ([facility]) Current Diet: Adult Diet Heart Healthy Cosigned by Cruz Solomon MD at 08/01/2024 8:54 PM CDT Associated attestation - Cruz Mccabe MD - 08/01/2024 8:54 PM CDT Cardiology Staff Attestation Patient was admitted last night by the on-call spout liner. I have seen and examined the patient with Dr. Marks on 08/01/2024. I have reviewed all the clinical information, lab investigations, radiographic and other imaging data. I agree with findings, assessment and plan as outlined. Treatment plan was formulated under my direct supervision. 69 yo F with history of HTN, HLD, diagnosed NSTEMI (OSH). Work-up showed MV-CAD (Distal LM: 80% into oLAD, p-mLAD: 60-70%, p-mRCA: long 70-80%, LCx: OM with diffuse disease - RA: 4. PA: 36/12 (22). W: 12-14 -CO/CI: 3.4/2.2). Hospital admission c/w new diagnosis of paroxysmal AFib RVR s/p DCCV (07/30/24). -- No events.Asymptomatic from the cardiovascular standpoint since admission. On AFib. On Amiodarone. TTE: LVEF: 45-50% - LVEDd: [address] chest revealed T10 transverse. Pending MRI report. Possible evaluation by neurosurgery vs. Ortho spine. Hemodynamically stable. Not on vasoppressors or inotropic support. CT surgery and interventional cardiology evaluation. Active medical conditions, plan and recommendations were discussed in lengthwith the patient. All the questions were answered. This patient is critically ill. The patient care involves high complexitymedical decision making and ICU level of care. There was a high probability of imminent life-threatening deterioration in the patient's condition. I spent 48 minutes of critical care time with this patient. This is the total time I spent evaluating, coordinating, managing and providing care to the patient as well as time spent in documenting such activities. This time is exclusive of time required to perform procedures required during patient management. (This note was dictated using voice recognition speech to text software and may contain inadvertent recognition errors). * Neda Hdez MD - 08/01/2024 11:20 AM CDT ID PULMONARY CRITICAL CARE MEDICINE - NoteType: PROGRESS NOTE Patient ID: @[email or web address]@ is a 69 y.o. female. Chief Complaint: No chief complaint on file. Admission date: 07/31/2024 Referring Physician: Leila Lozano NP Reason for Consult: Reason For Consult: Critical care management ASSESSMENT/PLAN: Problem List: Principal Problem: Triple vessel coronary artery disease Active Problems: Acute non-ST elevation myocardial infarction (NSTEMI) (CMS/HCC) (HCC) Tachy-sen syndrome (CMS/HCC) (HCC) Tobacco use disorder Peripheral vascular disease (HCC) Normocytic anemia Acute hypoxic respiratory failure (HCC) New onset of congestive heart failure (CMS/HCC) (HCC) Atrial fibrillation with RVR (CMS/HCC) (HCC) Prediabetes Diabetes mellitus (HCC) Problem List[1] Principal Problem: Triple vessel coronary artery disease Active Problems: Acute non-ST elevation myocardial infarction (NSTEMI) (CMS/HCC) (HCC) Tachy-sen syndrome (CMS/HCC) (HCC) Tobacco use disorder Peripheral vascular disease (HCC) Normocytic anemia Acute hypoxic respiratory failure (HCC) New onset of congestive heart failure (CMS/HCC) (HCC) Atrial fibrillation with RVR (CMS/HCC) (HCC) Prediabetes Diabetes mellitus (HCC) #Multivessel CAD with left main dx. #acute hypoxemic respiratory failure #Pulmonary edema #preop pulmonary edema #CHF #cellulitis #afib RVR #dm2 #htn #tobacco use Neuro/Psych: -delirium precautions. -Out of bed to chair as tolerated. Continue PT/OT. CV: Lab Results Component Value Date Pro BNP 17,963 (H) 07/28/2024 - [facility] (07/30/24) notable for severe 80% LM disease, and severe multivessel disease. - NPO for possible high risk PCI vs cabg - asa, atorvastatin - MARQUES, mild global hypokinesis, reduced EF 45-50% and DCCV (07/30/24). - amiodarone drip per HF - heparin drip - diuresis per HF - await CT surgery eval Resp: -Continue titrating O2 supplement to maintain O2 saturation above 92%. -Continue incentive spirometry. -optimize volume status. -CT chest (07/31)- Small bilateral pleural effusions, greater on the left. Dependent consolidative opacities with air bronchogram and surrounding groundglass in the bilateral lower lobes. Mild diffuse groundglass is associated with interlobular septal thickening. Scattered bilateral subsegmental atelectasis in both lungs. Minimal upper lobe predominant centrilobular emphysema. -PFT(07/31) - Restrictive ventilatory defect likely in setting of pulmonary edema and opacities seen on CT chest. GI/Nutrition:NPO Diet Last BM Date: 07/30/24 (07/31/24 0400) - NPO for now - bowel regimen - dc ppi Renal/Electrolytes:-Monitor urine output and optimize volume status. -Replete electrolytes as needed. Endo: Lab ResultsComponent Value Date Hgb A1C 6.45 (H) 07/31/2024 TSH 1.224 07/28/2024 -Continue insulin sliding scale. -Maintain fingersticks <180. Heme/Onc: Lab ResultsComponent Value Date INR 1.05 07/31/2024 INR 1.07 07/29/2024 PTT 114.9 (HH) 07/31/2024 PTT 48.7 (H) 07/30/2024 Plt Count 458 (H) 07/31/2024 Plt Count 378 07/30/2024 Plt Count 291 07/29/2024 Hgb 9.8 (L) 07/31/2024 Hgb 9.8 (L) 07/30/2024 Hgb 8.8 (L) 07/29/2024 - Continue heparin gtt. - Monitor H/H - Trend CBC ID: Lab ResultsComponent Value Date Procalcitonin 2.22 (HH) 07/28/2024 - Sp 5 day course of Unasyn for Cellulitis - fu Cx Msk/Skin/Deconditioned:-Consult PT/OT. -Continue wound care and sacral decubitus prevention. ICU Quality:HOB > 30 degrees Date of intubation: not applicable Restraints: No Stress Ulcer: Continue PPI PO DVT ppx: Continue heparin gtt. Lines: Not indicated. Perkins: Not Indicated. Tubes/Lines/Drains:Peripheral IV 07/28/24 Posterior;Right Hand (Active) Placement Date/Time: 07/28/24 0512 Hand Hygiene Completed: Yes Size (Gauge): 22 G Orientation: Posterior;Right Location: Hand Insertion attempts: 1 Number of days: 3 Peripheral IV 07/30/24 Left Forearm (Active)Placement Date/Time: 07/30/24 0000 Hand Hygiene Completed: Yes Orientation: Left Location: Forearm Site Prep: Alcohol Local Anesthetic: Injectable Technique: Anatomical landmarks Insertion attempts: 1 Number of days: 1 Code status: No Order Overall plan: CAD management, eval of CABG vs PCI This note was dictated with the use of [employer] speech recognition software.Please excuse any scientific technical writer errors. Vicky Barrera, PGY-4 [facility] Pulmonary [facility] Critical Care Medicine HISTORY OF PRESENT ILLNESS:HPI Nichelle Hampton is a 69 y.o. female with past medical history of hypertension, diabetes mellitus (on no meds), reported history of coronary artery disease and tobacco use, was transferred from [facility] after LHC revealed severe left main disease and multivessel disease. She was originally admitted for hand cellulitis after a spider bite, but during that hospital stay she had hypoxic respiratory failure requiring BiPAP, NSTEMI, possibly newly diagnosed CHF (EF 45-50%), and Afib w/ RVR. She underwent a MARQUES w/ cardioversion. LHC and RHC on 07/31/23 which showed normal filling pressures, LHC which showed 80% mid to distal LM lesion extending into the ostium of LAD, 60-70% mid LAD, diffuse LCx and OM disease, and 70-80% proximal to mid RCA disease. She was transferred to [facility] for revascularizaton. Nichelle Hampton is a 69 y.o. female with past medical history of hypertension, diabetes mellitus (on no meds), reported history of coronary artery disease and tobacco use, was transferred from [facility] after LHC revealed severe left main disease and multivessel disease. She was originally admitted for hand cellulitis after a spider bite, but during that hospital stay she had hypoxic respiratory failure requiring BiPAP, NSTEMI, possibly newly diagnosed CHF (EF 45-50%), and Afib w/ RVR. She underwent a MARQUES w/ cardioversion. LHC and RHC on 07/31/23 which showed normal filling pressures, LHC which showed 80% mid to distal LM lesion extending into the ostium of LAD, 60-70% mid LAD, diffuse LCx and OM disease, and 70-80% proximal to mid RCA disease. She was transferred to [facility] for revascularizaton. No data found. Enter data into the [facility] Mental Health Specialist navigator to see it here. Assessment & PlanAssessment & Plan Subjective INTERVAL EVENTS: [_]Temp (24hrs), Av.7 ?C (98.1 ?F), Min:36.6 ?C (97.9 ?F), Max:36.9 ?C (98.4 ?F) No data recordedI/O last 3 completed shifts: In: 968.8 (17.3 mL/kg) [P.O.:100; I.V.:868.8 (15.5 mL/kg)] Out: 2100 (37.6 mL/kg) [Urine:2100 (1 mL/kg/hr)] Weight: 55.9 kg No data found.No data found. PAST MEDICAL HISTORY:Medical History[2] PAST SURGICAL HISTORY:Surgical History[3] FAMILY HISTORY:Family History[4] SOCIAL HISTORY:Social History Socioeconomic HistoryMarital status: Spouse name: Not on file Number of children: Not on file Years of education: Not on file Highest education level: Not on file Occupational History Not on file Tobacco Use Smoking status: Former Current packs/day: 0.00 Types: Cigarettes Quit date: 1967 Years since quittin.2 Smokeless tobacco: Current Tobacco comments: PATIENT VERBALIZED "WELL NOW THAT I AM IN THE HOSPITAL, I CAN'T REALLY SMOKE Vaping Use Vaping status: Not on file Substance and Sexual Activity Alcohol use: Yes Alcohol/week: 6.0 standard drinks of alcohol Types: 6 Cans of beer per week Comment: [place] EVERYOTHER WEEKEND Drug use: Never Sexual activity: Not Currently Other Topics Concern Not on file Social History Narrative Not on file Social Drivers of Health Financial Resource Strain: Not on fileFood Insecurity: No Food Insecurity (07/31/2024) Hunger Vital Sign Worried About Running Out of Food in the Last Year: Never true Ran Out of Food in the Last Year: Never true Transportation Needs: No Transportation Needs (07/31/2024) PRAPARE - Transportation Lack of Transportation (Medical): No Lack of Transportation (Non-Medical): No Physical Activity: Not on file Stress: Not on file Social Connections: Not on file Intimate Partner Violence: Not At Risk (07/31/2024) Humiliation, Afraid, Rape, and Kick questionnaire Fear of Current or Ex-Partner: No Emotionally Abused: No Physically Abused: No Sexually Abused: No Housing Stability: Low Risk (07/31/2024) Housing Stability Vital Sign Unable to Pay for Housing in the Last Year: No Number of Times Moved in the Last Year: 0 Homeless in the Last Year: No ALLERGIES: Allergies[5] HOME MEDICATIONS:Medication Documentation Review Audit Reviewed by Sohail Garsia RN (Registered Nurse) on 08/01/24 at 1012 Medication Order Taking? Sig Documenting Provider Last Dose Statusevolocumab (Repatha SureClick) 140 MG/ML Subcutaneous Solution Auto-injector [id number] Inject 1 mL under the skin every 14 days. eLila Lozano, DANCE TEACHER Active aspirin, 81 mg, Oral, Daily atorvastatin, 40 mg, Oral, Daily polyethylene glycol (PEG) 3350, 17 g, Oral, Daily sennosides, 1 tablet, Oral, BID sodium chloride, 10 mL, Intravenous, q12h DARYL amiodarone, 1 mg/min, Last Rate: 0.5 mg/min (08/01/24 0944)heparin, 0.1-40 Units/kg/hr, Last Rate: 17 Units/kg/hr (08/01/24 0600) PRN medications: calcium gluconate, dextrose, dextrose, glucagon, insulinlispro, magnesium sulfate, potassium & sodium phosphates OR potassium & sodium phosphates, potassium chloride OR potassium chloride OR potassium chloride OR Potassium chloride, sodium chloride, sodium phosphates 45 mmol in sodium chloride 0.9 % 100 mL IVPB PHYSICAL EXAM:Gen: PE_Gen: AAOx3; NAD Neuro: No focal deficits appreciated HEENT: PERRL; EOMI; No scleral icterus CV/Pulses: PE_CV: RRR; 2+ peripheral pulses Pulm: Decreased breath sounds at the bases; No wheezing GI: BS (+); Soft; NTND : Deferred MS: Tone intact Skin/Ext: No changes in lesions; 1+ pitting edema LABS:Pertinent Labs : Lab Results Component Value Date WBC 11.28 (H) 08/01/2024 Hgb 10.0 (L) 08/01/2024 Hct 30.2 (L) 08/01/2024 Plt Count 511 (H) 08/01/2024 Lab ResultsComponent Value Date Sodium Lvl 136 08/01/2024 Potassium Lvl 3.8 08/01/2024 Chloride Lvl 101 08/01/2024 CO2 Lvl 28.9 08/01/2024 BUN 15 08/01/2024 Creatinine Lvl 0.73 08/01/2024 Glucose Lvl 169 (H) 08/01/2024 POC Glu 155 (H) 08/01/2024 Lab ResultsComponent Value Date Calcium Lvl 8.8 08/01/2024 Magnesium 1.99 08/01/2024 Phosphorus Lvl 3.9 08/01/2024 Lab ResultsComponent Value Date AST 10 (L) 08/01/2024 ALT 11 08/01/2024 Alkaline Phosphatase 69 08/01/2024 Lab ResultsComponent Value Date PTT 70.1 (H) 08/01/2024 Prothrombin Time (PT) 13.3 08/01/2024 INR 0.99 08/01/2024 No results found for: "COLORU", "CLARITYU", "SPECGRAV", "PHUR", "PROTUR", "GLUCOSEU", "KETONESU", "NITRITEU", "LEUKOCYTESUR", "BILIRUBINUR", "UROBILINOGEN" Lab Results Component Value Date HS Troponin I 347 (H) 07/31/2024 IMAGING:@IMAGES@ EKG:Encounter Date: 07/31/24 ECG 12 lead Result Value Ventricular Rate 66 Atrial Rate 66 WY Interval 132 QRS Duration 70 QT/QTc 418 QTc Calculation 438 P-Dayton 24 R-Dayton -27 T-Dayton 32 Impression SINUS RHYTHM NORMAL ECG WHEN COMPARED WITH ECG OF 30-JUL-2024 14:12, SINUS RHYTHM HAS REPLACED ATRIAL FIBRILLATION RATE HAS DECREASED CRITERIA FOR ANTERIOR INFARCTION NO LONGER PRESENT Confirmed by Jaiden Liriano ([id number]) on 07/31/2024 5:22:03 PM ECHO: Transthoracic echo (TTE) complete 07/31/2024 Interpretation SummaryLeft Ventricle: Left ventricle size is normal. Findings consistent with eccentric hypertrophy. Mild global hypokinesis present. Mildly reduced systolic function with an estimated EF of 45 - 50%. Grade I diastolic dysfunction of the left ventricle. Apical thrombus is not present verified by the use of contrast. Right Ventricle: Right ventricle size is normal. Normal systolic function in the right ventricle. TAPSE is 19 mm. Pericardium: No pericardial effusion present. Transesophageal echo (MARQUES) with possible cardioversion 07/30/2024 Interpretation SummaryLeft Ventricle: Left ventricle size is normal. Mild global hypokinesis present. Reduced systolic function with an estimated EF of 45 - 50%. Right Ventricle: Right ventricle size is normal. Normal systolic function in the right ventricle. Left Atrium: Normal sized left atrial appendage. No thrombus in left atrium present. Transthoracic echo (TTE) complete 07/28/2024 Interpretation SummaryPatient is in atrial fibrillation with RVR at the time of this study. LV systolic function assessment is suboptimal. Left Ventricle: Left ventricle size is normal. Mild global hypokinesis present. Mildly reduced systolic function with an estimated EF of 45 - 50%. Right Ventricle: Right ventricle size is normal. Normal systolic function in the right ventricle. Left Atrium: Left atrium is moderately dilated. Mitral Valve: Moderate mitral regurgitation present. Tricuspid Valve: Mild to moderate tricuspid regurgitation present. Mild to moderate pulmonary hypertension present. RVSP is 46.00 mmHg. Pericardium: Trivial pericardial effusion present. Left pleural effusion present. [1] Patient Active Problem List Diagnosis Acute hypoxic respiratory failure (HCC) New onset of congestive heart failure (CMS/HCC) (HCC) Cellulitis Atrial fibrillation with RVR (CMS/HCC) (HCC) Prediabetes Elevated troponin Hypertension Tobacco use Coronary artery disease Hyponatremia Hyperglycemia Pulmonary edema cardiac cause (CMS/HCC) (HCC) Triple vessel coronary artery disease Acute non-ST elevation myocardial infarction (NSTEMI) (CMS/HCC) (HCC) Tachy-sen syndrome (CMS/HCC) (HCC) Tobacco use disorder Peripheral vascular disease (HCC) Normocytic anemia Diabetes mellitus (HCC) [2] Past Medical History: Diagnosis Date Diabetes mellitus (HCC) PATIENT CLAIMED THAT SHE HAS DIABETES [3] History reviewed. No pertinent surgical history. [4] Family History: Problem Relation Name Age of Onset Diabetes Mother No Known Problems Father [5] No Known Allergies Cosigned by Jackson Ledesma MD at 08/01/2024 11:53 AM CDT * Jackson Ledesma MD - 08/01/2024 10:25 AM CDT PCCM Attending Note NAD Pending CTS eval Principal Problem: Triple vessel coronary artery disease Active Problems: Acute non-ST elevation myocardial infarction (NSTEMI) (CMS/HCC) ([facility]) Tachy-sen syndrome (CMS/HCC) (HCC) Tobacco use disorder Peripheral vascular disease (HCC) Normocytic anemia Acute hypoxic respiratory failure (HCC) New onset of congestive heart failure (CMS/HCC) ([facility]) Atrial fibrillation with RVR (CMS/HCC) ([facility]) Prediabetes Diabetes mellitus (HCC) #Multivessel CAD with left main dx. #acute hypoxemic respiratory failure #Pulmonary edema #preop pulmonary edema #CHF #cellulitis #afib RVR #dm2 #htn #tobacco use PLAN Neuro/Psych: -delirium precautions. -Out of bed to chair as tolerated. Continue PT/OT. CV: - LHC (07/30/24) notable for severe 80% LM disease, and severe multivessel disease. - MARQUES, mild global hypokinesis, reduced EF 45-50% and DCCV (07/30/24). - amiodarone drip (held for hypotension) - heparin drip Pending CTS eval for CABG Resp: On low flow BC -PFT(07/31) - Restrictive ventilatory defect likely in setting of pulmonary edema and opacities seen on CT chest. - No C/I to proceed to CABG from pulmonary stand-point GI/Nutrition: NPO Diet Renal/Electrolytes: -Monitor urine output and optimize volume status. -Replete electrolytes as needed. Endo: -Continue insulin sliding scale. -Maintain fingersticks <180. ID: - fu Cx Msk/Skin/Deconditioned: -Consult PT/OT. -Continue wound care and sacral decubitus prevention. ICU Quality: HOB > 30 degrees Date of intubation: not applicable Restraints: No Stress Ulcer: Continue PPI PO DVT ppx: Continue heparin gtt. Lines: Not indicated. Perkins: Not Indicated. his patient is critically ill. I spent 35 minutes of critical care time with this patient, not including procedure time. Jackson Ledesma MD * Mraisa Neri RN - 07/31/2024 12:14 PM CDT CASE MANAGEMENT ROUTINE DISCHARGE PLAN NOTE LOS: 0 Barriers to Discharge: Transferred from OSH for MVCAD. CABG work up. On heparin and O2 nc. Discharge plan A/B: home. MILENA: > week * Marii Mejia MD - 07/31/2024 12:04 PM CDT ID PULMONARY CRITICAL CARE MEDICINE - PROGRESS NOTE [id number] - Nichelle Hampton - 69 y.o. female - : 1955 - - Admit: 07/31/2024 - Leila Lozano NP - No chief complaint on file. Patient ID: Nichelle Hampton (69 y.o. female) Chief Complaint: No chief complaint on file. Admission Date: 07/31/2024 Referring Physician: Leila Lozano NP Reason for Consult: Critical care management Assessment & Plan Principal Problem: Triple vessel coronary artery disease Active Problems: Acute non-ST elevation myocardial infarction (NSTEMI) (CMS/HCC) (HCC) Tachy-sen syndrome (CMS/HCC) (HCC) Tobacco use disorder Peripheral vascular disease (HCC) Normocytic anemia Acute hypoxic respiratory failure (HCC) New onset of congestive heart failure (CMS/HCC) (HCC) Atrial fibrillation with RVR (CMS/HCC) (HCC) Prediabetes Diabetes mellitus (HCC) #Multivessel CAD with left main dx. #acute hypoxemic respiratory failure #Pulmonary edema #preop pulmonary edema #CHF #cellulitis #afib RVR #dm2 #htn #tobacco use Neuro/Psych: -delirium precautions. -Out of bed to chair as tolerated. Continue PT/OT. CV: Lab Results Component Value Date Pro BNP 17,963 (H) 07/28/2024 - LHC (07/30/24) notable for severe 80% LM disease, and severe multivessel disease. - NPO for possible high risk PCI vs cabg - asa, atorvastatin - MARQUES, mild global hypokinesis, reduced EF 45-50% and DCCV (07/30/24). - amiodarone drip (held for hypotension) - heparin drip Resp: -Continue titrating O2 supplement to maintain O2 saturation above 92%. -Continue incentive spirometry. -optimize volume status. -CT chest (07/31)- Small bilateral pleural effusions, greater on the left. Dependent consolidative opacities with air bronchogram and surrounding groundglass in the bilateral lower lobes. Mild diffuse groundglass is associated with interlobular septal thickening. Scattered bilateral subsegmental atelectasis in both lungs. Minimal upper lobe predominant centrilobular emphysema. -PFT(07/31) - Restrictive ventilatory defect likely in setting of pulmonary edema and opacities seen on CT chest. - No C/I to proceed to CABG from pulmonary stand-point GI/Nutrition: NPO Diet Last BM Date: 07/30/24 (07/31/24 0400) - NPO for now - bowel regimen, PPI. Renal/Electrolytes:-Monitor urine output and optimize volume status. -Replete electrolytes as needed. Endo:Lab Results Component Value Date Hgb A1C 6.45 (H) 07/31/2024 TSH 1.224 07/28/2024 -Continue insulin sliding scale. -Maintain fingersticks <180. Heme/Onc:Lab Results Component Value Date INR 1.05 07/31/2024 INR 1.07 07/29/2024 PTT 114.9 (HH) 07/31/2024 PTT 48.7 (H) 07/30/2024 Plt Count 458 (H) 07/31/2024 Plt Count 378 07/30/2024 Plt Count 291 07/29/2024 Hgb 9.8 (L) 07/31/2024 Hgb 9.8 (L) 07/30/2024 Hgb 8.8 (L) 07/29/2024 - Continue heparin gtt. - Monitor H/H - Trend CBC ID:Lab Results Component Value Date Procalcitonin 2.22 (HH) 07/28/2024 - Sp 5 day course of Unasyn for Cellulitis - fu Cx Msk/Skin/Deconditioned:-Consult PT/OT. -Continue wound care and sacral decubitus prevention. ICU Quality:HOB > 30 degrees Date of intubation: not applicable Restraints: No Stress Ulcer: Continue PPI PO DVT ppx: Continue heparin gtt. Lines: Not indicated. Perkins: Not Indicated. Tubes/Lines/Drains:Peripheral IV 07/28/24 Posterior;Right Hand (Active) Placement Date/Time: 07/28/24 0512 Hand Hygiene Completed: Yes Size (Gauge): 22 G Orientation: Posterior;Right Location: Hand Insertion attempts: 1 Number of days: 3 Peripheral IV 07/30/24 Left Forearm (Active)Placement Date/Time: 07/30/24 0000 Hand Hygiene Completed: Yes Orientation: Left Location: Forearm Site Prep: Alcohol Local Anesthetic: Injectable Technique: Anatomical landmarks Insertion attempts: 1 Number of days: 1 Code status: No Order Overall plan: CAD management, eval of CABG vs PCI This patient is critically ill. I spent 35 minutes of critical care time with this patient, not including procedure time. Marii Mejia, [facility] Pager #: [phone] MSO: [id number] History of Present Illness: 69 y.o. female w/ hx of htn, dm2, cad, tobacco use, who initially presented at outside hospital for acute hypoxemic respiratory failure on BIPAP, workup including [facility] showed severe left main disease and severe multivessel coronary disease, transferred to [facility] for CABG vs high risk PCI. Patient was admitted on 07/24/24 4 at outside hospital for sepsis in the settingof left hand cellulitis for which she was on antibiotics. During her hospital stay, she developed acute hypoxic respiratory failure in the setting of possibly newly diagnosed CHF, CTA chest was performed revealed classic signs of pulmonary congestion without evidence of PE. Labs were notable for elevated BNP. Her heart rate was noted to be tachycardic, consistent with A-fib with RVR. She received a bolus of amiodarone leading to improvement of heart rate, and was subsequently started on therapeutic Lovenox for anticoagulation. Her troponin levels were elevated to 1900>> 1500. She was placed on BiPAP and started on Lasix, however course was complicated by hypotension, leading to discontinuation of Lasix. Given the need for specialized cardiology and ICU care, she was transferred to [facility] on 07/28/24 for further management and close monitoring. On 07/30/24, the patient had LHC and RHC completed, notable for severe left main and multivessel coronary disease. In addition, she had MARQUES and DCCV for afib. She was then transferred to [facility] for CABG vs high risk PCI. Temp (24hrs), Av.7 ?C (98.1 ?F), Min:36.1 ?C (97 ?F), Max:37.1 ?C (98.8 ?F) Last BM Date: 07/30/24 (07/31/24 0400) I/O last 3 completed shifts: In: 4.3 (0.1 mL/kg) [I.V.:4.3 (0.1 mL/kg)] Out: - (0 mL/kg) Weight: 55.9 kg Intake/Output Summary (Last 24 hours) at 07/31/2024 1204Last data filed at 07/31/2024 0400 Gross per 24 hour Intake 4.28 ml Output -- Net 4.28 ml Net IO Since Admission: 4.28 mL [07/31/24 1204] No data found.No data found. LVAD/ECMO:No data found. No data found. History PAST MEDICAL HISTORY: Past Medical History: Diagnosis Date Diabetes mellitus (HCC) PATIENT CLAIMED THAT SHE HAS DIABETES PAST SURGICAL HISTORY: History reviewed. No pertinent surgical history. FAMILY HISTORY: Family History: Problem Relation Name Age of Onset Diabetes Mother No Known Problems Father SOCIAL HISTORY: Social History Socioeconomic HistoryMarital status: Spouse name: Not on file Number of children: Not on file Years of education: Not on file Highest education level: Not on file Occupational History Not on file Tobacco Use Smoking status: Former Current packs/day: 0.00 Types: Cigarettes Quit date: 1966 Years since quittin.2 Smokeless tobacco: Current Tobacco comments: PATIENT VERBALIZED "WELL NOW THAT I AM IN THE HOSPITAL, I CAN'T REALLY SMOKE Vaping Use Vaping status: Not on file Substance and Sexual Activity Alcohol use: Yes Alcohol/week: 6.0 standard drinks of alcohol Types: 6 Cans of beer per week Comment: [place] EVERYOTHER WEEKEND Drug use: Never Sexual activity: Not Currently Other Topics Concern Not on file Social History Narrative Not on file Social Drivers of Health Financial Resource Strain: Not on fileFood Insecurity: No Food Insecurity (07/31/2024) Hunger Vital Sign Worried About Running Out of Food in the Last Year: Never true Ran Out of Food in the Last Year: Never true Transportation Needs: No Transportation Needs (07/31/2024) PRAPARE - Transportation Lack of Transportation (Medical): No Lack of Transportation (Non-Medical): No Physical Activity: Not on file Stress: Not on file Social Connections: Not on file Intimate Partner Violence: Not At Risk (07/31/2024) Humiliation, Afraid, Rape, and Kick questionnaire Fear of Current or Ex-Partner: No Emotionally Abused: No Physically Abused: No Sexually Abused: No Housing Stability: Low Risk (07/31/2024) Housing Stability Vital Sign Unable to Pay for Housing in the Last Year: No Number of Times Moved in the Last Year: 0 Homeless in the Last Year: No ALLERGIES:No Known Allergies HOME MEDICATIONS:Medication Documentation Review Audit Reviewed by Kasey Gerard RN (Registered Nurse) on 07/31/24 at 0418 Medication Order Taking? Sig Documenting Provider Last Dose Statusevolocumab (Repatha SureClick) 140 MG/ML Subcutaneous Solution Auto-injector [id number] Inject 1 mL under the skin every 14 days. Leila Lozano NP Active CURRENT MEDICATIONS: Scheduled: aspirin, 81 mg, Oral, Daily atorvastatin, 40 mg, Oral, Daily pantoprazole, 40 mg, Intravenous, q24h ADRYL polyethylene glycol (PEG) 3350, 17 g, Oral, Daily sennosides, 1 tablet, Oral, BID sodium chloride, 10 mL, Intravenous, q12h DARYL Drips:[Held by provider] amiodarone, 0.5-1 mg/min, Last Rate: Stopped (07/31/24 0300) heparin, 0.1-40 Units/kg/hr, Last Rate: 11 Units/kg/hr (07/31/24 0507) PRN:PRN medications: dextrose, dextrose, glucagon, insulin lispro, sodium chloride PHYSICAL EXAM: BP (!) 94/50 | Pulse 92 | Temp 36.9 ?C (98.4 ?F) (Oral) | Resp (!) 4 | Ht 1.61 m (5' 3.39") | Wt 55.9 kg (123 lb 3.8 oz) | SpO2 94% | BMI 21.57 kg/m? Gen: AAOx3; NAD Neuro: No focal deficits appreciated HEENT: PERRL; EOMI; No scleral icterus CV/Pulses: RRR; 2+ peripheral pulses Pulm: Decreased breath sounds at the bases and No wheezing GI: BS (+); Soft; NTND : Deferred MS: Tone intact Skin/Ext: No changes in lesions; 1+ pitting edema LABS: Results from last 7 daysLab Units 07/31/24 0923 07/31/24 0332 07/31/24 0324 07/30/24 2312 07/30/24 2018 07/30/24 1720 07/30/24 1219 07/30/24 0820 07/30/24 0655 07/30/24 0500 07/30/24 0354 07/30/24 0348 07/29/24 2346 07/29/24 2340 07/29/24 1833 07/29/24 1730 07/29/24 1107 07/29/24 1027 07/29/24 0319 07/29/24 0030 07/28/24 0851 07/28/24 0500 SODIUM mEq/L -- -- 134* -- -- -- -- -- -- -- 136 -- -- -- -- -- -- -- -- 135* -- 132* POTASSIUM mEq/L -- -- 4.0 -- -- -- -- -- 4.3 -- 3.8 -- -- -- -- 4.1 -- -- < > 3.5 | 3.5 < > 4.5 CHLORIDE mEq/L -- -- 97* -- -- -- -- -- -- -- 96* -- -- -- -- -- -- -- -- 98 -- 99 CO2 mEq/L -- -- 32.3* -- -- -- -- -- -- -- 31.4* -- -- -- -- -- -- -- -- 28.1 -- 23.0 POC CO2 (CALC) mEq/L -- -- -- -- -- -- 32 -- -- -- -- -- -- -- -- -- -- -- -- -- -- -- BUN mg/dL -- -- 19 -- -- -- -- -- -- -- 22 -- -- -- -- -- -- -- -- 30* -- 24* CREATININE mg/dL -- -- 0.84 -- -- -- -- -- -- -- 0.83 -- -- -- -- -- -- -- -- 0.96 -- 0.91 GLUCOSE mg/dL -- -- 172* -- -- -- -- -- -- -- 146* -- -- -- -- -- -- -- -- 260* -- 200* POC GLUCOSE mg/dL 136* 154* -- -- 156* < > -- < > -- < > -- -- < > -- < > -- < > -- < > -- < > -- CALCIUM mg/dL -- -- 8.8 -- -- -- -- -- -- -- 8.4 -- -- -- -- -- -- -- -- 8.6 -- 9.3 MAGNESIUM mg/dL -- -- 1.87 -- -- -- -- -- -- -- 1.60 -- -- -- -- -- -- -- -- 1.89 -- 2.38 PHOSPHORUS mg/dL -- -- 4.0 -- -- -- -- -- -- -- 4.1 -- -- -- -- -- -- -- -- 2.3* -- 3.9 ALBUMIN g/dL -- -- 3.1* -- -- -- -- -- -- -- -- -- -- -- -- -- -- -- -- -- -- 4.2 PROTEIN TOTAL g/dL -- -- 6.0 -- -- -- -- -- -- -- -- -- -- -- -- -- -- -- -- -- -- 7.6 ALT U/L -- -- 14 -- -- -- -- -- -- -- -- -- -- -- -- -- -- -- -- -- -- 19 AST U/L -- -- 12 -- -- -- -- -- -- -- -- -- -- -- -- -- -- -- -- -- -- 27 BILIRUBIN TOTAL mg/dL -- -- 0.50 -- -- -- -- -- -- -- -- -- -- -- -- -- -- -- -- -- -- 0.50 WBC 10*3/uL -- -- 11.76* -- -- -- -- -- -- -- -- 11.75* -- -- -- -- -- -- -- 10.49 -- 7.45 HEMOGLOBIN g/dL -- -- 9.8* -- -- -- -- -- -- -- -- 9.8* -- -- -- -- -- -- -- 8.8* -- 9.8* PLATELETS 10*3/uL -- -- 458* -- -- -- -- -- -- -- -- 378 -- -- -- -- -- -- -- 291 -- 294 INR -- -- 1.05 -- -- -- -- -- -- -- -- -- -- -- -- 1.07 -- 1.12 -- -- -- 1.41* PTT Seconds -- -- 114.9* 48.7* -- -- -- -- 67.4* -- -- -- -- 87.0* -- 63.0* -- 64.3* -- 51.3* < > 36.2* NT PROBNP pg/mL -- -- -- -- -- -- -- -- -- -- -- -- -- -- -- -- -- -- -- -- -- 17,963* PROCALCITONIN ng/mL -- -- -- -- -- -- -- -- -- -- -- -- -- -- -- -- -- -- -- -- -- 2.22* < > = values in this interval not displayed. Lab ResultsComponent Value Date Pro BNP 17,963 (H) 07/28/2024 Procalcitonin 2.22 (HH) 07/28/2024 TSH 1.224 07/28/2024 Hgb A1C 6.45 (H) 07/31/2024 Culture Results:No results found for the last 90 days. IMAGING:Images were reviewed. US carotid artery doppler bilateral EXAM: US EXTRACRANIAL ARTERIAL DOPPLER DATE: 07/31/2024 10:10 INDICATION: Preoperative evaluation ADDITIONAL INFORMATION: None. COMPARISON: None. TECHNIQUE: Multiplanar grayscale, color Doppler, and spectral Dopplerultrasound of the carotid and vertebral arteries. FINDINGS: RIGHT CAROTID SYSTEM: Right Common Carotid Artery (RCCA): Antegrade waveforms. No significant plaque. Patent artery. * Proximal RCCA: PSV 98 cm/s * Middle RCCA: PSV 75 cm/s * Distal RCCA: PSV 70 cm/s Right Carotid Bulb: PSV 66 cm/s mild plaque Right Internal Carotid Artery (SHAN): Antegrade waveforms. No significantplaque. Patent artery. * Proximal SHAN: PSV 95 cm/s * Middle SHAN: PSV 83 cm/s * Distal SHAN: PSV 87 cm/s Right External Carotid Artery (RECA): Antegrade waveforms. No significantplaque. Patent artery. * PSV 141 cm/s SHAN:RCCA: 1.4 Right Vertebral Artery (RVA): Antegrade waveforms. LEFT CAROTID SYSTEM: Left Common Carotid Artery (LCCA): Antegrade waveforms. Mild plaque distally Plaque is soft/echolucent. * Proximal LCCA: PSV 93 cm/s * Middle LCCA: 94 cm/s * Distal LCCA: PSV 91 cm/s Left Carotid Bulb: PSV 88 cm/s Left Internal Carotid Artery (LICA): Antegrade waveforms. Mild plaque. Plaqueis predominantly soft/echolucent. * Proximal LICA: PSV 94 cm/s * Middle LICA: 94 cm/s * Distal LICA: PSV 81 cm/s Left External Carotid Artery (LECA): Antegrade waveforms. No significantplaque. Patent artery. * PSV 130 cm/s LICA:LCCA:1.0 Left Vertebral Artery (LVA): Antegrade waveforms. Other: None. IMPRESSION:1. Right internal carotid artery: No stenosis. 2. Left internal carotid artery: <50% stenosis. 3. Vertebral arteries: Normal antegrade waveforms. NOTE: Stenosis according to the 2020 SRU Consensus: * <50%: PSV <180cm/s, EDV <40cm/s, ICA:CCA <2 * 50-69%: PSV 180-230cm/s, EDV 40-100cm/s, ICA:CCA 2-4 * >70%: PSV >230cm/s, EDV >100cm/s, ICA:CCA >4 REFERENCE:[facility] Acc[facility] Commission Vascular Testing Communication. Updated Recommendations for Carotid Stenosis Interpretation Criteria. February 2021. https://intersocietal.org/wp-content/uploads//CUG-Lqmtvoni-Fvkoqts-Commun izwuuz_Ytwqxyo-Nkjlolucjwopimr-gta-Cmkbbyf-Wjpysbhr-Nxnubrdyyndrvf-Criteria.pdf This report was dictated by a Dairy Husbandry Worker/Fellow/TIANNA: JOYCE Howard 07/31/2024 10:42 This report was dictated by a Dairy Husbandry Worker/Fellow/Physician Fish Hatchery Laborer. I have personally reviewed the images as well as the interpretation and agree with the findings. Report finalized by: Rock Driver MD 07/31/2024 11:41XR chest 1 view EXAM: XR CHEST 1 VIEW DATE: 07/31/2024 4:07 INDICATION: SOB COMPARISON: Chest x-ray from July 29 TECHNIQUE: AP chest IMPRESSION: Stable enlarged cardiomediastinal silhouette. Stable bilateral retrocardiac opacities and a small pleural effusions. Stable dependent predominant bilateral airspace opacities which could present edema or multifocal infection. No pneumothorax in this portable radiograph. Osseous structures are unchanged. Report finalized by: Leda Hurley MD, MD 07/31/2024 11:14CT CHEST WO IV CONTRAST EXAM: CT CHEST WITHOUT CONTRAST DATE: 07/31/2024 9:50 INDICATION: Preoperative evaluation ADDITIONAL INFORMATION: 69-year-old Woman with History of and A-fib. COMPARISON: No prior CT chest is available for comparison at the time of dictation. TECHNIQUE: Volumetric CT of the chest is acquired without contrast. Axial, coronal and sagittal images are provided. MIP series is provided. FINDINGS: Counseling Services Director: Noncontributory. Lines, tubes and hardware: None. Lower neck: The visible portions or the lower neck and thyroid areunremarkable. Axilla: There are no enlarged axillary lymph nodes. Airways, lungs and pleura: The central airways are patent. Small right posterolateral diverticulum in the upper trachea. Small bilateral pleural effusions, greater on the left. Dependent consolidative opacities with air bronchograms and surrounding groundglass in the bilateral lower lobes. Mild diffuse groundglass is associated with interlobular septal thickening. Scattered bilateral subsegmental atelectasis in both lungs. No pneumothorax. Few calcified granulomas in both lungs. Minimal upper lobe predominant centrilobular emphysema. Mediastinum, jagjit and intrathoracic lymph nodes: Multiple calcifiedintrathoracic lymph nodes are most consistent with sequela of prior renal metastases. Borderline size mediastinal lymph nodes measuring up to 1 cm most likely reactive. Evaluation of hilar spaces suboptimal due to lack of intravenous contrast. Heart, pericardium and great vessels: Cardiomegaly. Trace physiologicpericardial effusion. Evidence of anemia. The thoracic aorta and pulmonary trunk have normal caliber. Scattered calcifications at the thoracic aorta. Diffuse three-vessel coronary artery calcifications. Upper abdomen: Scattered calcifications at abdominal aorta and branches. Status post cholecystectomy. Calcified granulomas in the spleen. Bones: Bones are severely demineralized with degenerative changes. Acute appearing transverse fracture of anterior aspect of T10 vertebral body is suboptimal evaluated (best seen on images 121-128 of series 7). Soft tissues: Normal. IMPRESSION:1. Acute appearing transverse fracture of anterior aspect of T10 vertebral body is suboptimal evaluated. Recommend further evaluation with dedicated MRI spine. 2. Imaging findings suggestive of pulmonary edema associated with volume overload. Dependent atelectasis in the bilateral lungs with possible superimposed aspiration/pneumonia. 3. Small bilateral pleural effusions, greater on the left. 4. Cardiomegaly. Diffuse three-vessel coronary artery calcifications. 5. Evidence of prior granulomatous disease. 6. Additional imaging findings as described. Critical findings of impression #1 were communicated to and acknowledged by Dr. Brandin Marks Via telephone at 07/31/2024 10:30 by Leda Hurley MD, . Report finalized by: Leda Hurley MD, 07/31/2024 10:30US lower extremity arterial doppler bilateral EXAM: US BILATERAL LOWER EXTREMITY ARTERIAL DOPPLER DATE: 07/31/2024 6:35 INDICATION: weak pulses ADDITIONAL INFORMATION: None. COMPARISON: None. TECHNIQUE: Multiplanar grayscale, color Doppler, and spectral Dopplerultrasound of the bilateral lower extremity arteries. FINDINGS: Right Extremity Spectral Doppler:* Common Femoral Artery: Antegrade multiphasic flow. * Profunda Femoral Artery: Antegrade monophasic high resistive flow. * Superficial Femoral Artery: Progressive narrowing with mid segment occlusion and distal reconstitution of flow. * Popliteal Artery: Antegrade monophasic low resistive flow with rapid upstroke. * Posterior Tibialis Artery: Antegrade monophasic high resistive flow proximally with distal occlusion. * Anterior Tibialis Artery: Antegrade monophasic low resistive and dampened flow (parvus et tardus). * Dorsalis Pedis Artery: Antegrade monophasic low resistive flow with prolonged upstroke. Left Extremity Spectral Doppler:* Profunda Femoral Artery: Antegrade multiphasic flow. * Superficial Femoral Artery: Proximal near occlusion and mid SFA occlusion with distal reconstitution of flow. * Posterior Tibialis Artery: Antegrade monophasic low resistive and dampened flow (parvus et tardus). * Anterior Tibialis Artery: Antegrade monophasic low resistive flow with prolonged upstroke. * Dorsalis Pedis Artery: Antegrade monophasic low resistive and dampened flow (parvus et tardus). Other: None. IMPRESSION:1. Bilateral SFA progressive occlusions with reconstitution of flow appear chronic. 2. Right distal [employer] occlusion, also likely chronic. Report finalized by: Rock Driver MD 07/31/2024 8:54ECG 12 lead SINUS RHYTHM NORMAL ECG WHEN COMPARED WITH ECG OF 30-JUL-2024 14:12, MANUAL COMPARISON REQUIRED, DATA IS UNCONFIRMED US carotid artery doppler bilateralResult Date: 07/31/2024 EXAM: US EXTRACRANIAL ARTERIAL DOPPLER DATE: 07/31/2024 10:10 INDICATION: Preoperative evaluation ADDITIONAL INFORMATION: None. COMPARISON: None. TECHNIQUE: Multiplanar grayscale, color Doppler, and spectral Doppler ultrasound of the carotid and vertebral arteries. FINDINGS: RIGHT CAROTID SYSTEM: Right Common Carotid Artery (RCCA): Antegrade waveforms. No significant plaque. Patent artery. * Proximal RCCA: PSV 98 cm/s * Middle RCCA: PSV 75 cm/s * Distal RCCA: PSV 70 cm/s Right Carotid Bulb: PSV 66 cm/s mild plaque Right Internal Carotid Artery (SHAN): Antegrade waveforms. No significant plaque. Patent artery. * Proximal SHAN: PSV 95 cm/s * Middle SHAN: PSV 83 cm/s * Distal SHAN: PSV 87 cm/s Right External Carotid Artery (RECA): Antegrade waveforms. No significant plaque. Patent artery. * PSV 141 cm/s SHAN:RCCA: 1.4 Right Vertebral Artery (RVA): Antegrade waveforms. LEFT CAROTID SYSTEM: Left Common Carotid Artery (LCCA): Antegrade waveforms. Mild plaque distally Plaque is soft/echolucent. * Proximal LCCA: PSV 93 cm/s * Middle LCCA: 94 cm/s * Distal LCCA: PSV 91 cm/s Left Carotid Bulb: PSV 88 cm/s Left Internal Carotid Artery (LICA): Antegrade waveforms. Mild plaque. Plaque is predominantly soft/echolucent. * Proximal LICA: PSV 94 cm/s * Middle LICA: 94 cm/s * Distal LICA: PSV 81 cm/s Left External Carotid Artery (LECA): Antegrade waveforms. No significant plaque. Patent artery. * PSV 130 cm/s LICA:LCCA:1.0 Left Vertebral Artery (LVA): Antegrade waveforms. Other: None. IMPRESSION: 1. Right internal carotid artery: No stenosis. 2. Left internal carotid artery: <50% stenosis. 3. Vertebral arteries: Normal antegrade waveforms. NOTE: Stenosis according to the 202 SRU Consensus: * <50%: PSV <180cm/s, EDV <40cm/s, ICA:CCA <2 * 50-69%: PSV 180-230cm/s, EDV 40-100cm/s, ICA:CCA 2-4 * >70%: PSV >230cm/s, EDV >100cm/s, ICA:CCA >4 REFERENCE: [facility] Acc[facility] Commission Vascular Testing Communication. Updated Recommendations for Carotid Stenosis Interpretation Criteria. February 2021. https://intersocietal.org/wp-content/uploads//KIG-Ueaqqzsp-Erhqccy-Commun gvhrky_Iaphftp-Rmljhacmnfkwpeb-kkr-Gjtpnay-Trnjvknn-Angbixuzloymgy-Criteria.pdf This report was dictated by a Dairy Husbandry Worker/Fellow/TIANNA: Vira Moncada, JOYCE 07/31/2024 10:42 This report was dictated by a Dairy Husbandry Worker/Fellow/Physician Fish Hatchery Laborer. I have personally reviewed the images as well as the interpretation and agree with the findings. Report finalized by: Rock Driver MD 07/31/2024 11:41 XR chest 1 viewResult Date: 07/31/2024 EXAM: XR CHEST 1 VIEW DATE: 07/31/2024 4:07 INDICATION: SOB COMPARISON: Chest x-ray from July 29 TECHNIQUE: AP chest IMPRESSION: Stable enlarged cardiomediastinal silhouette. Stable bilateral retrocardiac opacities and a small pleural effusions. Stable dependent predominant bilateral airspace opacities which could present edema or multifocal infection. No pneumothorax in this portable radiograph. Osseous structures are unchanged. Report finalized by: Leda Hurley MD, MD 07/31/2024 11:14 CT CHEST WO IV CONTRASTResult Date: 07/31/2024 EXAM: CT CHEST WITHOUT CONTRAST DATE: 07/31/2024 9:50 INDICATION: Preoperative evaluation ADDITIONAL INFORMATION: 69-year-old Woman with History of and A-fib. COMPARISON: No prior CT chest is available for comparison at the time of dictation. TECHNIQUE: Volumetric CT of the chest is acquired without contrast. Axial, coronal and sagittal images are provided. MIP series is provided. FINDINGS: Counseling Services Director: Noncontributory. Lines, tubes and hardware: None. Lower neck: The visible portions or the lower neck and thyroid are unremarkable. Axilla: There are no enlarged axillary lymph nodes. Airways, lungs and pleura: The central airways are patent. Small right posterolateral diverticulum in the upper trachea. Small bilateral pleural effusions, greater on the left. Dependent consolidative opacities with air bronchograms and surrounding groundglass in the bilateral lower lobes. Mild diffuse groundglass is associated with interlobular septal thickening. Scattered bilateral subsegmental atelectasis in both lungs. No pneumothorax. Few calcified granulomas in both lungs. Minimal upper lobe predominant centrilobular emphysema. Mediastinum, jagjit and intrathoracic lymph nodes: Multiple calcified intrathoracic lymph nodes are most consistent with sequela of prior renal metastases. Borderline size mediastinal lymph nodes measuring up to 1 cm most likely reactive. Evaluation of hilar spaces suboptimal due to lack of intravenous contrast. Heart, pericardium and great vessels: Cardiomegaly. Trace physiologic pericardial effusion. Evidence of anemia. The thoracic aorta and pulmonary trunk have normal caliber. Scattered calcifications at the thoracic aorta. Diffuse three-vessel coronary artery calcifications. Upper abdomen: Scattered calcifications at abdominal aorta and branches. Status post cholecystectomy. Calcified granulomas in the spleen. Bones: Bones are severely demineralized with degenerative changes. Acute appearing transverse fracture of anterior aspect of T10 vertebral body is suboptimal evaluated (best seen on images 121-128 of series 7). Soft tissues: Normal. IMPRESSION: 1. Acute appearing transverse fracture of anterior aspect of T10 vertebral body is suboptimal evaluated. Recommend further evaluation with dedicated MRI spine. 2. Imaging findings suggestive of pulmonary edema associated with volume overload. Dependent atelectasis in the bilateral lungs with possible superimposed aspiration/pneumonia. 3. Small bilateral pleural effusions, greater on the left. 4. Cardiomegaly. Diffuse three-vessel coronary artery calcifications. 5. Evidence of prior granulomatous disease. 6. Additional imaging findings as described. Critical findings of impression #1 were communicated to and acknowledged by Dr. Brandin Marks Via telephone at 07/31/2024 10:30 by Leda Hurley MD, . Report finalized by: Leda Hurley MD, MD 07/31/2024 10:30 US lower extremity arterial doppler bilateralResult Date: 07/31/2024 EXAM: US BILATERAL LOWER EXTREMITY ARTERIAL DOPPLER DATE: 07/31/2024 6:35 INDICATION: weak pulses ADDITIONAL INFORMATION: None. COMPARISON: None. TECHNIQUE: Multiplanar grayscale, color Doppler, and spectral Doppler ultrasound of the bilateral lower extremity arteries. FINDINGS: Right Extremity Spectral Doppler: * Common Femoral Artery: Antegrade multiphasic flow. * Profunda Femoral Artery: Antegrade monophasic high resistive flow. * Superficial Femoral Artery: Progressive narrowing with mid segment occlusion and distal reconstitution of flow. * Popliteal Artery: Antegrade monophasic low resistive flow with rapid upstroke. * Posterior Tibialis Artery: Antegrade monophasic high resistive flow proximally with distal occlusion. * Anterior Tibialis Artery: Antegrade monophasic low resistive and dampened flow (parvus et tardus). * Dorsalis Pedis Artery: Antegrade monophasic low resistive flow with prolonged upstroke. Left Extremity Spectral Doppler: * Profunda Femoral Artery: Antegrade multiphasic flow. * Superficial Femoral Artery: Proximal near occlusion and mid SFA occlusion with distal reconstitution of flow. * Posterior Tibialis Artery: Antegrade monophasic low resistive and dampened flow (parvus et tardus). * Anterior Tibialis Artery: Antegrade monophasic low resistive flow with prolonged upstroke. * Dorsalis Pedis Artery: Antegrade monophasic low resistive and dampened flow (parvus et tardus). Other: None. IMPRESSION: 1. Bilateral SFA progressive occlusions with reconstitution of flow appear chronic. 2. Right distal [employer] occlusion, also likely chronic. Report finalized by: Rock Driver MD 07/31/2024 8:54 ECG 12 leadSINUS RHYTHM NORMAL ECG WHEN COMPARED WITH ECG OF 30-JUL-2024 14:12, MANUAL COMPARISON REQUIRED, DATA IS UNCONFIRMED Cardiac catheterizationResult Date: 07/30/2024 Conclusions: 1. Severe left main into ostial LAD and proximal to mid RCA coronary artery disease 3. Normal RH pressures, mean PAP 22 mmHg, mean PCWP 12-14 mmHg 4. Normal Cardiac Output 2.2 L/min Recommendations: 1. Transfer to [facility] for consideration of coronary artery bypass graft surgery versus high risk PCI 2. Resume heparin drip 4 hours after hemostasis ECG 12 leadATRIAL FIBRILLATION WITH A RAPID VENTRICULAR RESPONSE WITH ABERRANTLY CONDUCTED OR PREMATURE VENTRICULAR COMPLEX(ES) ABNORMAL ECG WHEN COMPARED WITH ECG OF 28-JUL-2024 12:51, MANUAL COMPARISON REQUIRED, DATA IS UNCONFIRMED @IMAGES@PFTs: FEV1 Date Value Ref Range Status 07/31/2024 0.85 L Preliminary ECHO:Transesophageal echo (MARQUES) with possible cardioversion Result Date: 07/30/2024 Left Ventricle: Left ventricle size is normal. Mild global hypokinesis present. Reduced systolic function with an estimated EF of 45 - 50%. Right Ventricle: Right ventricle size is normal. Normal systolic function in the right ventricle. Left Atrium: Normal sized left atrial appendage. No thrombus in left atrium present. Transthoracic echo (TTE) completeResult Date: 07/28/2024 Patient is in atrial fibrillation with RVR at the time of this study. LV systolic function assessment is suboptimal. Left Ventricle: Left ventricle size is normal. Mild global hypokinesis present. Mildly reduced systolic function with an estimated EF of 45 - 50%. Right Ventricle: Right ventricle size is normal. Normal systolic function in the right ventricle. Left Atrium: Left atrium is moderately dilated. Mitral Valve: Moderate mitral regurgitation present. Tricuspid Valve: Mild to moderate tricuspid regurgitation present. Mild to moderate pulmonary hypertension present. RVSP is 46.00 mmHg. Pericardium: Trivial pericardial effusion present. Left pleural effusion present. [facility]2025-04-02 18:48:09Pending Results Scheduled Orders Name Type Priority Associated Diagnoses Order Schedule Thyroid panel Lab STAT STAT (Lab) for 1 Occurrences starting 07/31/2024 until 07/31/2024 Comprehensive Metabolic Panel Lab STAT STAT (Lab) for 1 Occurrences starting 08/02/2024 until 08/02/2024 Magnesium Level Lab STAT STAT (Lab ) for 1 Occurrences starting 08/02/2024 until 08/02/2024 Assess post-sheath cath site Wound Ostomy Routine Until discontinu ed until discontinued starting 08/06/2024 Site care Wound Ostomy Routine Until discon tinued until discontinued starting 08/06/2024 POCT Glucose Point of Care Testing - Docked Device Routine Every 4 hours (Lab) for 30 Days starting 08/09/2024 until 09/07/2024, 59 completed POCT Glucose Point of Care Testing - Docked Device Routine Every 15 minutes as needed until discontinued starting 08/08/2024 External Catheter Procedures Routine Once fo r 1 Occurrences starting 08/09/2024 until 08/09/2024 Pap Therapy Respiratory Care Routine As need ed until discontinued starting 08/09/2024 Prepare RBC: 1 Units Blood Bank Routine Once for 1 Occurrences starting 08/14/2024 until 08/14/2024 Prepare platelet dose: 1 doses Transfusion indications: Hold for surgery Blood Bank Routine Once for 1 Occurrences starting 08/14/2024 until 08/14/2024 Prepare Plasma: 1 Units Transfusion indications: Hold for surgery Blood Bank Routine Once for 1 Occurrences starting 08/14/2024 until 08/14/2024 Complete Blood Count w/Diff and Platelet Lab Routine Morning draw (Lab) until discontinued starting 08/15/2024, 8 completed Magnesium Level Lab Routine Morning d raw (Lab) until discontinued starting 08/15/2024, 8 completed Phosphorus Level Lab Routine Morning draw (Lab) until discontinued starting 08/15/2024, 8 completed Basic Metabolic Panel Lab Routine Mor nacho draw (Lab) for 30 Days starting 08/21/2024 until 09/19/2024, 2 completed POCT Glucose Point of Care Testing - Docked Device Routine 3 times daily before meals (Lab) for 30 Days starting 08/22/2024 until 09/21/2024 POCT Glucose Point of Care Testing - Docked Device Routine Every 15 minutes as needed until discontinued starting 08/22/2024 Cardiac event monitor Cardiac Services STAT Once for 1 Occurrences starting 08/22/2024 until 08/22/2024 Scheduled Referrals Name Type Priority Associated Diagnoses Order Schedule Cardiac Rehabilitation Phase II Referral Outpatient Referral Routine Triple vessel coronary artery disease Expected: 08/06/2024 (Approximate), Expires: 08/06/2025 Health Maintenance Due Date Last Done Comments Bone Density Scan 1953 CT Colonography 1953 Colonoscopy 1953 Colorectal Cancer Screening 1953 FIT-DNA 1953 FIT 1953 FOBT 1953 Sigmoidoscopy 1953 Annual Physical 02/26/1956 Diabetes: Foot Exam 1963 Diabetes: Retinopathy Screening 1963 DTaP/Tdap/Td Vaccines (1 - Tdap) 02/26/1972 Diabetes: Urine Protein Screening 02/26/1972 Pneumococcal Vaccine: 50+ Years (1 of 2 - PCV) 02/26/1972 Mammogram 1993 Zoster Vaccines (1 of 2) 2003 Respiratory Syncytial Virus (RSV) or >=60 (1 - Risk 60-74 years 1-dose series) 2013 Influenza Vaccine (Season Ended) 2025 Diabetes: Hemoglobin A1C 01/31/2025 025, 07/28/2024 Lipid Panel 07/28/2025 07/28/2024 HIB Vaccines Aged Out No longer eligi ble based on patient's age to complete this topic HPV Vaccines Aged Out No longer eligi ble based on patient's age to complete this topic Hepatitis A Vaccines Aged Out No long er eligible based on patient's age to complete this topic Hepatitis B Vaccines Aged Out No long er eligible based on patient's age to complete this topic IPV Vaccines Aged Out No longer eligi ble based on patient's age to complete this topic Meningococcal Vaccine Aged Out No laura black eligible based on patient's age to complete this topic Rotavirus Vaccines Aged Out No longer eligible based on patient's age to complete this topic [id number] 18:48:09 [id number] 18:48:09 Diagnosis Triple vessel coronary artery disease - Primary Coronary atherosclerosis of unspecified type of vessel, makah or graft Triple vessel coronary artery disease Coronary atherosclerosis of unspecified type of vessel, makah or graft Coronary artery disease invo lving makah coronary artery of makah heart, unspecified whether angina present Nonrheumatic mitral valve re gurgitation Melena Blood in stool Cardiac arrest Acute hypoxic respiratory fa ilure ([facility]) New onset of congestive hear t failure (CMS/HCC) (HCC) Atrial fibrillation with RVR (CMS/HCC) ([facility]) Prediabetes Other abnormal glucose Acute non-ST elevation myoca rdial infarction (NSTEMI) (CMS/HCC) (HCC) Tachy-sen syndrome (CMS/HCC) (HCC) Sinoatrial node dysfunction Tobacco use disorder Peripheral vascular disease ([facility]) Unspecified peripheral vascular disease Normocytic anemia Unspecified anemia Diabetes mellitus ([facility]) Type II or unspecified type diabetes mellitus without mention of complication, not stated as uncontrolled Compression fracture of T10 vertebra (HCC) Coronary artery disease Coronary atherosclerosis of unspecified type of vessel, makah or graft Cardiac arrest Shock (CMS/HCC) (HCC) Unspecified shock Nonrheumatic mitral valve re gurgitation Melena Blood in stool AVM (arteriovenous malformation) Congenital anomaly of the peripheral vascular system, unspecified site Atypical atrial flutter (CMS /HCC) (HCC) Chronic systolic heart failure (CMS/HCC) (HCC) Chronic systolic heart failure D[place] (acute kidney injury) (H CC) Severe malnutrition (CMS/HCC) (HCC) Nutritional marasmus Coronary artery disease invo lving makah coronary artery of makah heart, unspecified whether angina present Nonrheumatic mitral valve re gurgitation [id number] 18:48:09 [id number] 16:36:31 Images from the original note were not included. [id number] Insulin Reaction (Low Blood Sugar) You have been treated for an insulin reaction today. You had low blood sugar (hypoglycemia). This happens when insulin causes your blood sugar to get too low. Your blood sugar may drop if you take too much insulin. Or it may happen when you take your normal amount of insulin but don't get enough food. Or if you have fewer carbohydrates in the meal without reducing your insulin dose. This can also be from vomiting or loss of appetite. Other causes of low blood sugar are: ? Heavy exercise ? Strong emotions ? Alcohol ? Tobacco ? Caffeine Some medicines can also affect blood sugar. These include: ? Aspirin ? Amiodarone ? Doxycycline ? Quinine ? Ketoconazole? ? Gabapentin ? Topiramate ? Valproate? ? Haloperidol ? Propoxyphene ? Chlorpromazine ? Sertraline ? Propranolol ? Disopyramide ? SUSIE inhibitors ? Fluoroquinolone antibiotics ? Indomethacin ? Pentamidine ? Gatifloxacin ? Cibenzoline Try caffeine-free drinks if you think caffeine may lower your blood sugar. If you smoke, get help to quit. This is one of the best things you can do to protect your health. If you take any of the medicines listed above, talk with your healthcare provider about switching to some other type. A class of medicines called beta-blockers is used for high blood pressure, rapid heart rate, and other health problems. These may mask the early signs of low blood sugar. You may not know when your blood sugar is getting low. If you are taking a beta-kelly and often have episodes of low blood sugar, talk with your provider about switching to a different class. Some beta-blockers are: ? Propranolol ? Atenolol ? Metoprolol ? Nadolol ? Labetalol ? Carvedilol Home care ? Rest for the next 24 hours. Eat small meals often. This will help keep your blood sugar up. ? Learn the signs your body gives as your blood sugar drops (see below). If symptoms of low blood sugar return ? Always keep a source of fast-acting sugar with you. At the first sign of low blood sugar, eat or drink 15 to 20 grams of fast-acting sugar. Examples include: o 3 to 4 glucose tablets or glucose gel. These are sold at most pharmacies. o 4 ounces of regular soda o 4 ounces of fruit juice o 2 tablespoons of raisins o 1 tablespoon of honey ? Check your blood sugar 15 minutes after treating yourself. If it's still low, take another 15 to 20 grams of fast-acting sugar. Test again in 15 minutes. Repeat this step until blood sugar is at least 70 mg/dL. If it?s still low after treatment, go to an emergency room. ? Once your blood sugar is normal again, eat a snack or meal with protein. This will help to keep your blood sugar in a safe range. In the future, you may need to lower your insulin dose if you aren't able to eat your normal amount at each meal because of illness or vomiting. Call your healthcare provider right away. Ask them about changing your dose for a little bit. Check your blood sugar every 4 to 6 hours. Do this until you can start eating normal amounts again. Wear a medical alert bracelet or necklace or carry a card in your wallet that says you have diabetes. It will help healthcare providers give you correct care if you have a severe low blood sugar reaction and can't tell them you have the disease. Follow-up care Follow up with your healthcare provider, or as advised. Check and write down your blood sugar and insulin dose twice a day. Do this before breakfast and before dinner. Do this for the next 5 days. See your healthcare provider in the next week to review these records. This will help tell if you need to change your insulin dose. If you often have episodes of low blood sugar, your healthcare provider may give you glucagon shots. Or the provider may give you these shots if your episodes of low blood sugar are severe. These shots quickly raise your blood sugar. One of your family members or friends will need to learn how to give you this shot. If your insulin reactions occur often, your provider may ask you to check your blood sugar for a few days with a system called continuous glucose monitoring. To learn more about diabetes, visit the [place] [employer]'s website at www.diabetes.org . When to get medical care Call your healthcare provider right away if any of these symptoms of low blood sugar occur and they don't go away with the above steps: ? Severe tiredness (fatigue) ? Headache ? Shakes ? Lots of sweating ? Hunger ? Feeling anxious or restless ? Eyesight changes ? Personality changes Call 911 Call 911 or get emergency care if any of these occur and don't go away quickly with the above steps: ? Confusion ? Seizure ? Lightheadedness, dizziness, or loss of consciousness ? Drowsiness ? Weakness Last Reviewed Date: 2022 00:00:00 ? [id number] [employer]. All rights reserved. This information is not intended as a substitute for professional medical care. Always follow your healthcare professional's instructions. [facility]als[facility]ena [id number] 16:36:20 Images from the original note were not included. [id number] Amiodarone Brand Name(s): Cordarone?, Pacerone?; also available generically IMPORTANT WARNING: Amiodarone may cause lung damage that can be serious or life-threatening. Tell your doctor if you have or have ever had any type of lung disease or if you have ever developed lung damage or breathing problems while taking amiodarone. If you experience any of the following symptoms, call your doctor immediately: fever, shortness of breath, wheezing, other breathing problems, cough, or coughing or spitting up blood. Amiodarone may also cause liver damage. Tell your doctor if you have or have ever had liver disease. If you experience any of the following symptoms, call your doctor immediately: nausea, vomiting, dark colored urine, excessive tiredness, yellowing of the skin or eyes, itching, or pain in the upper right part of the stomach. Amiodarone may cause your arrhythmia (irregular heart rhythm) to worsen or may cause you to develop new arrhythmias. Tell your doctor if you have ever been dizzy or lightheaded or have fainted because your heartbeat was too slow and if you have or have ever had low levels of potassium or magnesium in your blood; heart or thyroid disease; or any problems with your heart rhythm other than the arrhythmia that is being treated. Tell your doctor and pharmacist if you are taking any of the following medications: antifungals such as fluconazole (Diflucan), ketoconazole (Nizoral), and itraconazole (Onmel, Sporanox); azithromycin (Zithromax, Zmax); beta blockers such as propranolol (Hemangeol, Inderal, Innopran); calcium channel blockers such as diltiazem (Cardizem, Cartia, Diltzac, Tiazac, others), and verapamil (Calan, Covera, Verelan, in Tarka); cisapride (Propulsid; not available in the [place]); clarithromycin (Biaxin); clonidine (Catapres, Kapvay); diuretics ('water pills'); dofetilide (Tikosyn); erythromycin (E.E.S., E-Mycin, Erythrocin); fluoroquinolone antibiotics such as ciprofloxacin (Cipro), levofloxacin (Levaquin), lomefloxacin (not available in the [place]), moxifloxacin (Avelox), norfloxacin (not available in the [place]), ofloxacin, and sparfloxacin (not available in the [place]); other medications for irregular heartbeat such as digoxin (Lanoxin), disopyramide (Norpace), flecainide, ivabradine (Corlanor), phenytoin (Dilantin, Phenytek), procainamide, quinidine (in Nuedexta), and sotalol (Betapace, Sorine, Sotylize); and thioridazine. If you have any of the following symptoms, call your doctor immediately: lightheadedness; fainting; fast, slow, or pounding heartbeat; or feeling that your heart has skipped a beat. You will probably be hospitalized for one week or longer when you begin your treatment with amiodarone. Your doctor will monitor you carefully during this time and for as long as you continue to take amiodarone. Your doctor will probably start you on a high dose of amiodarone and gradually decrease your dose as the medication begins to work. Your doctor may decrease your dose during your treatment if you develop side effects. Follow your doctor's directions carefully. Do not stop taking amiodarone without talking to your doctor. You may need to be closely monitored or even hospitalized when you stop taking amiodarone. Amiodarone may remain in your body for some time after you stop taking it, so your doctor will watch you carefully during this time. Keep all appointments with your doctor and the laboratory. Your doctor will order certain tests, such as blood tests, X-rays, and electrocardiograms (EKGs, tests that record the electrical activity of the heart) before and during your treatment to be sure that it is safe for you to take amiodarone and to check your body's response to the medication. Your doctor or pharmacist will give you the archivist economic history's patient information sheet (Medication Guide) when you begin treatment with amiodarone and each time you refill your prescription. Read the information carefully and ask your doctor or pharmacist if you have any questions. You can also obtain the Medication Guide from the FDA website: https://www.fda.gov/Drugs/DrugSafety/zah264069.htm. Talk to your doctor about the risks of taking amiodarone. WHY is this medicine prescribed? Amiodarone is used to treat and prevent certain types of serious, life-threatening ventricular arrhythmias (a certain type of abnormal heart rhythm when other medications did not help or could not be tolerated. Amiodarone is in a class of medications called antiarrhythmics. It works by relaxing overactive heart muscles. HOW should this medicine be used? Amiodarone comes as a tablet to take by mouth. It is usually taken once or twice a day. You may take amiodarone either with or without food, but be sure to take it the same way each time.Follow the directions on your prescription label carefully, and ask your doctor or pharmacist to explain any part you do not understand. Take amiodarone exactly as directed. Do not take more or less of it or take it more often than prescribed by your doctor. Are there OTHER USES for this medicine? Amiodarone is also sometimes used to treat other types of arrhythmias. Talk to your doctor about the risks of using this medication for your condition. This medication may be prescribed for other uses; ask your doctor or pharmacist for more information. What SPECIAL PRECAUTIONS should I follow? Before taking amiodarone, ? tell your doctor and pharmacist if you are allergic to amiodarone, iodine, any other medications, or any of the ingredients in amiodarone tablets. Ask your pharmacist or check the Medication Guide for a list of the ingredients. ? tell your doctor and pharmacist what prescription and nonprescription medications, vitamins, and nutritional supplements you are taking or plan to take. Be sure to mention the medications listed in the IMPORTANT WARNING section and any of the following: antidepressants ('mood elevators') such as trazodone (Oleptro); anticoagulants ('blood thinners') such as dabigatran (Pradaxa) and warfarin (Coumadin, Jantoven); certain cholesterol lowering medications such as atorvastatin (Lipitor, in Caduet, in Liptruzet), cholestyramine (Prevalite), lovastatin (Altoprev, in Advicor), and simvastatin (Zocor, in Simcor, in Vytorin); cimetidine; clopidogrel (Plavix); cyclosporine (Gengraf, Neoral, Sandimmune); dextromethorphan (a medication in many cough preparations); fentanyl (Actiq, Duragesic, Fentora, others); HIV protease inhibitors such as indinavir (Crixivan) and ritonavir (Norvir, in Kaletra, in Viekira Brian); ledipasvir and sofosbuvir (Harvoni); lithium (Lithobid); loratadine (Claritin); medications for diabetes or seizures; methotrexate (Otrexup, Rasuvo, Trexall); narcotic medications for pain; rifampin (Rifadin, Rimactane, in Rifamate, in Rifater); and sofosbuvir (Solvaldi) with simeprevir (Olysio). Many other medications may interact with amiodarone, so be sure to tell your doctor about all the medications you are taking, even those that do not appear on this list. Your doctor may have to change the doses of your medications or monitor you carefully for side effects. ? tell your doctor what herbal products you are taking, especially Martinton's wort. ? tell your doctor if you have diarrhea or have or have ever had any of the conditions mentioned in the IMPORTANT WARNING section or problems with your blood pressure. ? tell your doctor if you are or plan to become . Talk to your doctor if you plan to become during your treatment because amiodarone may remain in your body for some time after you stop taking it. If you become while taking amiodarone, call your doctor immediately. Amiodarone can cause harm. ? tell your doctor if you are . Do not breastfeed while you are taking amiodarone. ? talk to your doctor about the risks of taking this medication if you are 65 years of age or older. Older adults should not usually take amiodarone because it is not as safe or effective as other medication(s) that can be used to treat the same condition. ? if you are having surgery, including dental surgery or laser eye surgery, tell your doctor or dentist that you are taking amiodarone. ? plan to avoid unnecessary or prolonged exposure to sunlight or sunlamps and to wear protective clothing, sunglasses, and sunscreen. Amiodarone may make your skin sensitive to sunlight. Exposed skin may turn blue-walters and may not return to normal even after you stop taking this medication. ? you should know that amiodarone may cause vision problems including permanent blindness. Be sure to have regular eye exams during your treatment and call your doctor if your eyes become dry, sensitive to light, if you see halos, or have blurred vision or any other problems with your vision. ? you should know that amiodarone may remain in your body for several months after you stop taking it. You may continue to experience side effects of amiodarone during this time. Be sure to tell every health care provider who treats you or prescribes any medication for you during this time that you have recently stopped taking amiodarone. What SPECIAL DIETARY instructions should I follow? Do not drink grapefruit juice while you are taking this medication. What should I do IF I FORGET to take a dose? Skip the missed dose and continue your regular dosing schedule. Do not take a double dose to make up for a missed one. What SIDE EFFECTS can this medicine cause? Some side effects can be serious. If you experience any of the following symptoms, or those listed in the IMPORTANT WARNING section, call your doctor immediately or get emergency medical treatment: ? rash ? weight loss or gain ? restlessness ? weakness ? nervousness ? irritability ? intolerance to heat or cold ? thinning hair ? excessive sweating ? changes in menstrual cycle ? swelling in the front of the neck (goiter) ? swelling of the hands, feet, ankles, or lower legs ? uncontrollable shaking of a part of the body ? decreased concentration ? movements that you cannot control ? poor coordination or trouble walking ? numbness or tingling in the hands, legs, and feet ? muscle weakness Amiodarone may cause other side effects. Call your doctor if you have any unusual problems while taking this medication. If you experience a serious side effect, you or your doctor may send a report to the Food and Drug Administration's (FDA) MedWatch Adverse Event Reporting program online (https://www.fda.gov/Safety/MedWatch) or by phone ( ). What should I know about STORAGE and DISPOSAL of this medication? Keep this medication in the container it came in, tightly closed, and out of reach of children. Store it at room temperature and away from light, excess heat and moisture (not in the bathroom). Unneeded medications should be disposed of in special ways to ensure that pets, children, and other people cannot consume them. However, you should not flush this medication down the toilet. Instead, the best way to dispose of your medication is through a medicine take-back program. Talk to your pharmacist or contact your local garbage/recycling department to learn about take-back programs in your community. See the FDA's Safe Disposal of Medicines website (https://goo.gl/c4Rm4p) for more information if you do not have access to a take-back program. It is important to keep all medication out of sight and reach of children as many containers (such as weekly pill minders and those for eye drops, creams, patches, and inhalers) are not child-resistant and young children can open them easily. To protect young children from poisoning, always lock safety caps and immediately place the medication in a safe location - one that is up and away and out of their sight and reach. https://www.upandaway.org What should I do in case of OVERDOSE? In case of overdose, call the poison control helpline at . Information is also available online at https://www.poisonhelp.org/help. If the victim has collapsed, had a seizure, has trouble breathing, or can't be awakened, immediately call emergency services at 911. Symptoms of overdose may include: ? slow heartbeat ? nausea ? blurred vision ? lightheadedness ? fainting What OTHER INFORMATION should I know? Do not let anyone else take your medication. Ask your pharmacist any questions you have about refilling your prescription. It is important for you to keep a written list of all of the prescription and nonprescription (gszi-fun-mritznn) medicines you are taking, as well as any products such as vitamins, minerals, or other dietary supplements. You should bring this list with you each time you visit a doctor or if you are admitted to a hospital. It is also important information to carry with you in case of emergencies. This report on medications is for your information only, and is not considered individual patient advice. Because of the changing nature of drug information, please consult your physician or pharmacist about specific clinical use. The [employer] represents that the information provided hereunder was formulated with a reasonable standard of care, and in conformity with professional standards in the field. The [employer] makes no representations or warranties, express or implied, including, but not limited to, any implied warranty of merchantability and/or fitness for a particular purpose, with respect to such information and specifically disclaims all such warranties. Users are advised that decisions regarding drug therapy are complex medical decisions requiring the independent, informed decision of an appropriate health home health care respiratory therapist, and the information is provided for informational purposes only. The entire monograph for a drug should be reviewed for a thorough understanding of the drug's actions, uses and side effects. The [employer] does not endorse or recommend the use of any drug. The information is not a substitute for medical care. AHFS? Patient Medication Information?. ? Copyright, 2023. The [employer]?, [address], [address], [place], [place]. All Rights Reserved. Duplication for commercial use must be authorized by [facility]. Selected Revisions: August 04, 2016. AHFS? Patient Medication Information?. ? Copyright, 2024 [facility] 16:34:58 Images from the original note were not included. [id number] Cellulitis Cellulitis is an infection of the deep layers of skin. A break in the skin, such as a cut or scratch, can let bacteria under the skin. Cellulitis causes the affected skin to become red, swollen, warm, and sore. The reddened areas have a border you can see. An open sore may leak fluid (pus). You may have a fever, chills, and pain. Cellulitis is treated with antibiotics taken for 7 to 10 days. An open sore may be cleaned and covered with cool wet gauze. Symptoms should get better 1 to 2 days after treatment is started. Make sure to take all the antibiotics for the full number of days prescribed by your health care provider. Keep taking the medicine even if your symptoms go away. If not treated, cellulitis can get into the bloodstream and lymph nodes. The infection can then spread throughout the body. This can cause serious illnesses, such as osteomyelitis (infection of the bone), endocarditis (inflammation of the inner lining of the heart and heart valves), and sepsis, a life-threatening complication of an infection. Home care Follow these tips: ? Limit the use of the part of your body with cellulitis. ? If the infection is on your leg, keep your leg raised while sitting. This helps reduce swelling. ? Take all of the antibiotic medicine exactly as directed until it is gone. Don't miss any doses. This may make the bacteria resistant to the prescribed antibiotics. Your infection will then be hard to treat. Finish taking all of the medicine even when your symptoms get better. ? Keep the affected area clean and dry. ? Wash your hands for 20 seconds with soap and clean, running water before and after touching your skin. Lather the back of your hands, wash between your fingers, and clean under your fingernails. Anyone else who touches your skin should also wash their hands. Don't share towels or other personal items, such as clothes, that may come in contact with the affected area. Follow-up care Follow up with your health care provider, or as advised. If your infection doesn't go away after finishing the first antibiotic, your provider will prescribe a different one. If your provider sent a sample of pus or discharge from the affected site to the lab, they may change the antibiotics. This depends on the lab reports. When to call your doctor Contact your health care provider right away if: ? You have red areas that spread. ? Your swelling or pain gets worse. ? Fluid (pus) is leaking from the skin. ? You have a fever of 100.4? F (38? C) or higher after 2 days on antibiotics. ? You have no improvement after 24 to 48 hours. Last Reviewed Date: 2024 00:00:00 ? [id number] [employer]. All rights reserved. This information is not intended as a substitute for professional medical care. Always follow your healthcare professional's instructions. Bharathi [id number] 16:33:35 Images from the original note were not included. [id number] Fall Prevention Falls often take place due to slipping, tripping, or losing your balance. Millions of people fall every year and injure themselves. Among older adults in the [place] falls are the most common cause of traumatic brain injuries. Every 20 minutes, an older adult dies from a fall. Here are ways to reduce your risk of falling again: ? Think about your fall. Was there anything that caused your fall that can be fixed, removed, or replaced? ? Make your home safe by keeping walkways clear of objects you may trip over, such as animal toys and electrical cords. ? If you are sad or depressed talk to your health care provider. Symptoms of depression, such as feeling under the weather, or physically "slowed down," have been linked to an increased fall risk. ? Drink fluids throughout the day. Dehydration can lead to dizziness and increase your risk of falling. It's best to talk to your primary care providers about how much water you should drink. They know your medical history, your current prescriptions and your zvqv-tgw-wcwtove medicines. As a general rule, the [employer] (NCA) recommends taking one-third of your body weight and drinking that number of ounces in fluids. For example, if you weigh 150 pounds, you would drink at least 50 ounces, or about 6 cups, of fluid each day. Ask your provider if it's safe for you to use this formula. ? Use nonslip pads under rugs. Don't use area rugs or small throw rugs. ? Use nonslip mats in bathtubs and showers. ? Hang grab rails by the toilet and inside and outside the shower. ? Install handrails and lights on staircases. The handrails should be on both sides of the stairs. ? Use night lights. ? Don't walk in poorly lit areas. ? Don't stand on chairs or wobbly ladders. ? Use care when reaching overhead or looking up. This position can cause a loss of balance. ? Be sure your shoes fit well, are in good condition, and have nonslip bottoms. ? Wear shoes both inside and outside of your home. Don't go barefoot or wear slippers. ? Be cautious when going up and down stairs, curbs, and when walking on uneven sidewalks. ? If your balance is poor, consider using a cane or walker. Talk with your health care provider about having a balance assessment. ? If your fall was related to alcohol use, stop or limit alcohol intake. Ask your provider for help if you think you may overuse alcohol and can't stop. ? If your fall was related to use of sleeping medicines, talk with your provider about this. You may need to reduce your dosage at bedtime if you wake up during the night to go to the bathroom. ? To reduce the need for nighttime bathroom trips: o Don't drink fluids for several hours before going to bed. o Empty your bladder before going to bed. o Men can keep a urinal at the bedside. ? Stay as active as you can. Balance, flexibility, strength, and endurance all come from exercise. They all play a role in preventing falls. Ask your provider which types of activity are right for you. Try to do some type of exercise every day. ? Get your eyes checked once a year or more often if your vision changes. Be extra cautious while adjusting to new prescription lenses. ? If you have pets, know where they are before you stand up or walk so you don't trip over them. ? Go over all your medicines with a pharmacist or other provider. This is to see if any of them could make you more likely to fall. Have this type of medicine review at least once every year. ? If your provider advises a new medicine, ask if the side effects will affect your balance. ? Don't move quickly from one position to another. For instance, don't stand up fast from sitting. This can cause dizziness and may lead to a fall. ? Sit down when putting on pants, socks, and shoes. This will make you less likely to lose your balance and fall. ? Always let your provider know if you have fallen since your last visit. ? Contact your provider right away if you're having balance problems or falling more often. Last Reviewed Date: 2024 00:00:00 ? [id number] [employer]. All rights reserved. This information is not intended as a substitute for professional medical care. Always follow your healthcare professional's instructions. [facility]2025-04-02 07:44:19 The patient is Moderately Unstable - Medium risk of patient condition declining or worsening The patient's goals for the shift include safety and comfort The clinical goals for the shift include HDS Over the shift, the patient did not make progress toward the following goals. Barriers to progression include . Recommendations to address these barriers include Problem: Pain - Adult Goal: Verbalizes/displays adequate comfort level or baseline comfort level Outcome: Progressing Problem: Safety - Adult Goal: Free from fall injury Outcome: Progressing Problem: Discharge Planning Goal: Discharge to home or other facility with appropriate resources Outcome: Progressing Problem: Chronic Conditions and Co-morbidities Goal: Patient's chronic conditions and co-morbidity symptoms are monitored and maintained or improved Outcome: Progressing . [facility]2025-04-01 23:50:11 The patient has denied pain and has been educated on fall precautions. Problem: Pain - Adult Goal: Verbalizes/displays adequate comfort level or baseline comfort level Outcome: Progressing Problem: Safety - Adult Goal: Free from fall injury Outcome: Progressing Problem: Discharge Planning Goal: Discharge to home or other facility with appropriate resources Outcome: Progressing Problem: Chronic Conditions and Co-morbidities Goal: Patient's chronic conditions and co-morbidity symptoms are monitored and maintained or improved Outcome: Progressing Hipolito Mcclaingioannalee [id number] 08:12:18 The patient is Moderately Unstable - Medium risk of patient condition declining or worsening The patient's goals for the shift include saftey and comfort The clinical goals for the shift include continue pt/ot Over the shift, the patient did not make progress toward the following goals. Barriers to progression include . Recommendations to address these barriers include Problem: Pain - Adult Goal: Verbalizes/displays adequate comfort level or baseline comfort level Outcome: Progressing Problem: Safety - Adult Goal: Free from fall injury Outcome: Progressing Problem: Discharge Planning Goal: Discharge to home or other facility with appropriate resources Outcome: Progressing Problem: Chronic Conditions and Co-morbidities Goal: Patient's chronic conditions and co-morbidity symptoms are monitored and maintained or improved Outcome: Progressing Problem: Pain - Adult Goal: Verbalizes/displays adequate comfort level or baseline comfort level Outcome: Progressing Problem: Safety - Adult Goal: Free from fall injury Outcome: Progressing Problem: Discharge Planning Goal: Discharge to home or other facility with appropriate resources Outcome: Progressing Problem: Chronic Conditions and Co-morbidities Goal: Patient's chronic conditions and co-morbidity symptoms are monitored and maintained or improved Outcome: Progressing . [id number] 06:47:05 The patient is Moderately Stable - Low risk of patient condition declining or worsening The patient's goals for the shift include sleep. The clinical goals for the shift include Problem: Pain - Adult Goal: Verbalizes/displays adequate comfort level or baseline comfort level Outcome: Progressing Problem: Safety - Adult Goal: Free from fall injury Outcome: Progressing Flowsheets (Taken 08/20/20241999) Free from fall injury: Instruct family/caregiver on patient safety Problem: Discharge Planning Goal: Discharge to home or other facility with appropriate resources Outcome: Progressing Over the shift, the patient made progress toward these goals. [facility]2025-03-31 09:29:02 The patient is Moderately Stable - Low risk of patient condition declining or worsening The patient's goals for the shift include Rest and sleep The clinical goals for the shift include HDS Plan discussed with patient and patient verbalized agreement. T [facility]2025-03-30 22:58:06 Problem: Pain - Adult Goal: Verbalizes/displays adequate comfort level or baseline comfort level Outcome: Progressing Problem: Safety - Adult Goal: Free from fall injury Outcome: Progressing Problem: Discharge Planning Goal: Discharge to home or other facility with appropriate resources Outcome: Progressing Problem: Chronic Conditions and Co-morbidities Goal: Patient's chronic conditions and co-morbidity symptoms are monitored and maintained or improved Outcome: Progressing [facility]2025-03-30 18:23:10 The patient is Moderately Stable - Low risk of patient condition declining or worsening The patient's goals for the shift include rest and comfort The clinical goals for the shift include HDS T Hilda Kumari [facility]2025-03-30 09:53:13 The patient is Moderately Stable - Low risk of patient condition declining or worsening The patient's goals for the shift include rest. The clinical goals for the shift include HD stability [facility]2025-03-30 06:29:58 Patient had been NSR in 60s over shift; with occasionally briefly dropping into SBs into the low 30s (patient asymptomatic). Marble Mason observed rhythm change and HR up in the 100s. EKG obtained, and provider notified. Patient denies: any: shortness of breath, chest pain/pressure, dizziness, or feeling light headed. Patient resting comfortably in bed, and educated to call if notices any changes/questions. T [facility]2025-03-29 07:38:25 The patient is Moderately Stable - Low risk of patient condition declining or worsening The patient's goals for the shift include pt/ot The clinical goals for the shift include safe ambulation Problem: Pain - Adult Goal: Verbalizes/displays adequate comfort level or baseline comfort level Outcome: Ongoing Problem: Safety - Adult Goal: Free from fall injury Outcome: Ongoing Problem: Discharge Planning Goal: Discharge to home or other facility with appropriate resources Outcome: Ongoing Problem: Chronic Conditions and Co-morbidities Goal: Patient's chronic conditions and co-morbidity symptoms are monitored and maintained or improved Outcome: Ongoing T [facility]2025-03-28 08:11:11 The patient is Moderately Stable - Low risk of patient condition declining or worsening The patient's goals for the shift include comfort The clinical goals for the shift include Hemodynamic stability Problem: Pain - Adult Goal: Verbalizes/displays adequate comfort level or baseline comfort level Outcome: Ongoing Problem: Safety - Adult Goal: Free from fall injury Outcome: Ongoing Problem: Discharge Planning Goal: Discharge to home or other facility with appropriate resources Outcome: Ongoing Problem: Chronic Conditions and Co-morbidities Goal: Patient's chronic conditions and co-morbidity symptoms are monitored and maintained or improved Outcome: Ongoing [id number] 04:26:01 The patient's goals for the shift include rest and comfort The clinical goals for the shift include : Safety and comfort T [facility]2025-03-27 14:00:00 Patient transferred to [facility]. Cristina RN at bedside. Patient transferred with all personal belongings, including dentures and cellphone. Lindsay Carrion [facility]2025-03-27 01:28:02 The patient is Moderately Stable - Low risk of patient condition declining or worsening The patient's goals for the shift include Rest and comfort The clinical goals for the shift include Hemodynamic stability Over the shift, the patient did not make progress toward the following goals. Barriers to progression include decreasing hgb. Recommendations to address these barriers include monitor hgb and s/s of bleeding. [id number] 13:36:37 The patient is Moderately Stable - Low risk of patient condition declining or worsening The patient's goals for the shift include finish egd and fix bleeding issue The clinical goals for the shift include hemoglobin checks, complete EGD Over the shift, the patient did not make progress toward the following goals. Barriers to progression include disease process. Recommendations to address these barriers include reiteration. [id number] 21:19:28 T Problem: Pain - Adult Goal: Verbalizes/displays adequate comfort level or baseline comfort level Outcome: Ongoing Problem: Safety - Adult Goal: Free from fall injury Outcome: Ongoing Problem: Discharge Planning Goal: Discharge to home or other facility with appropriate resources Outcome: Ongoing Problem: Chronic Conditions and Co-morbidities Goal: Patient's chronic conditions and co-morbidity symptoms are monitored and maintained or improved Outcome: Ongoing [facility] Vargas [facility]als[facility] [id number] 20:59:07 Zeroed [facility]2025-03-25 11:44:10 Problem: Pain - Adult Goal: Verbalizes/displays adequate comfort level or baseline comfort level Outcome: Progressing Problem: Safety - Adult Goal: Free from fall injury Outcome: Progressing Flowsheets Taken 08/14/2024 1000 Free from fall injury: Instruct family/caregiver on patient safety Based on caregiver fall risk screen, instruct family/caregiver to ask for assistance with transferring if caregiver noted to have fall risk factors Taken 08/14/2024 0800 Free from fall injury: Instruct family/caregiver on patient safety Based on caregiver fall risk screen, instruct family/caregiver to ask for assistance with transferring infant if caregiver noted to have fall risk factors Problem: Chronic Conditions and Co-morbidities Goal: Patient's chronic conditions and co-morbidity symptoms are monitored and maintained or improved Outcome: Progressing Problem: Discharge Planning Goal: Discharge to home or other facility with appropriate resources Outcome: Progressing The patient is Moderately Unstable - Medium risk of patient condition declining or worsening The patient's goals for the shift include Stable vitals, Resume diet when appropriate. The clinical goals for the shift include Hemodynamic Stability. [facility]2025-03-25 03:12:30 Problem: Pain - Adult Goal: Verbalizes/displays adequate comfort level or baseline comfort level Outcome: Progressing Problem: Safety - Adult Goal: Free from fall injury Outcome: Progressing Problem: Discharge Planning Goal: Discharge to home or other facility with appropriate resources Outcome: Progressing Problem: Chronic Conditions and Co-morbidities Goal: Patient's chronic conditions and co-morbidity symptoms are monitored and maintained or improved Outcome: Progressing The patient is Moderately Stable - Low risk of patient condition declining or worsening The patient's goals for the shift include sleep The clinical goals for the shift include hemodynamic stability, diuresis [facility]2025-03-24 11:52:34 Problem: Pain - Adult Goal: Verbalizes/displays adequate comfort level or baseline comfort level Outcome: Progressing Problem: Safety - Adult Goal: Free from fall injury Outcome: Progressing Flowsheets Taken 08/13/2024 1000 Free from fall injury: Instruct family/caregiver on patient safety Based on caregiver fall risk screen, instruct family/caregiver to ask for assistance with transferring if caregiver noted to have fall risk factors Taken 08/13/2024 0800 Free from fall injury: Instruct family/caregiver on patient safety Based on caregiver fall risk screen, instruct family/caregiver to ask for assistance with transferring if caregiver noted to have fall risk factors Problem: Altered Nutrient Intake Goal: Nutrient intake appropriate for improving, restoring or maintaining nutritional needs Recent Flowsheet Documentation Taken 08/13/2024 1122 by Angela Medina RN Nutrient intake appropriate for improving, restoring, or maintaining nutritional needs: Assess nutritional status and recommend course of action Monitor oral intake, labs, and treatment plans Recommend appropriate diets, oral nutritional supplements, and vitamin/mineral supplements Provide specific nutrition education to patient or family as appropriate The patient is Moderately Unstable - Medium risk of patient condition declining or worsening The patient's goals for the shift include OOB to chair with assist/ TLSO brace, Work with PT/OT. The clinical goals for the shift include Hemodynamic Stability, Hemoglobin checks q6h. [facility]2025-03-24 03:09:16 Problem: Pain - Adult Goal: Verbalizes/displays adequate comfort level or baseline comfort level Outcome: Ongoing Problem: Safety - Adult Goal: Free from fall injury Outcome: Ongoing Problem: Discharge Planning Goal: Discharge to home or other facility with appropriate resources Outcome: Ongoing Problem: Chronic Conditions and Co-morbidities Goal: Patient's chronic conditions and co-morbidity symptoms are monitored and maintained or improved Outcome: Ongoing The patient is Moderately Stable - Low risk of patient condition declining or worsening The patient's goals for the shift include sleep and prepare for surgery The clinical goals for the shift include hemoglobin monitoring [facility]2025-03-23 18:41:13 The patient is Moderately Stable - Low risk of patient condition declining or worsening The patient's goals for the shift include finish egd and fix bleeding issue The clinical goals for the shift include hemoglobin checks, complete EGD Patient did make progress. Multiple clips placed to suspected AVM in duodenum along with epinephrine. HGB recheck stable. [facility] [id number] 01:59:38 Problem: Pain - Adult Goal: Verbalizes/displays adequate comfort level or baseline comfort level Outcome: Progressing The patient is Moderately Unstable - Medium risk of patient condition declining or worsening The clinical goals for the shift include hemodynamic stability, safety, stable hemoglobin T [facility]2025-03-22 16:09:06 The patient is Moderately Unstable - Medium risk of patient condition declining or worsening The patient's goals for the shift include eat some food and remain pain free. The clinical goals for the shift include Wean impella while maintaining hemodynamic stability. Over the shift, the patient did not make progress toward the following goals. Barriers to progression include patient developed melanotic stools in the morning times 3. Recommendations to address these barriers include GI consulted and possibility of EGD which has been planned for Sunday 08/13 and stopped heparin. T [facility]2025-03-21 19:26:41 The patient is Moderately Unstable - Medium risk of patient condition declining or worsening The patient's goals for the shift include pain free The clinical goals for the shift include Wean impella while maintaining hemodynamic stability T [facility]2025-03-21 16:11:59 The patient is Moderately Unstable - Medium risk of patient condition declining or worsening The patient's goals for the shift include pain management and to tolerate MARQUES. The clinical goals for the shift include Wean impella while maintaining hemodynamic stability and to begin recovery post mitral clip. Over the shift, the patient did not make progress toward the following goals. Barriers to progression include some hypotension noted during MARQUES with adjustments to impella with Doctors orders. Recommendations to address these barriers include assist with further pain management and hemodynamic monitoring. [facility]2025-03-21 13:38:46 The patient is Moderately Unstable - Medium risk of patient condition declining or worsening The patient's goals for the shift include Get out of bed The clinical goals for the shift include Wean impella while maintaining hemodynamic stability Over the shift, the patient did not make progress toward the following goals. Barriers to progression include pain . Recommendations to address these barriers include pain medication . Problem: Pain - Adult Goal: Verbalizes/displays adequate comfort level or baseline comfort level Outcome: Not Progressing Problem: Safety - Adult Goal: Free from fall injury Outcome: Not Progressing Problem: Discharge Planning Goal: Discharge to home or other facility with appropriate resources Outcome: Not Progressing Problem: Chronic Conditions and Co-morbidities Goal: Patient's chronic conditions and co-morbidity symptoms are monitored and maintained or improved Outcome: Not Progressing [facility]2025-03-20 19:17:37 The patient is Moderately Unstable - Medium risk of patient condition declining or worsening The patient's goals for the shift include Get out of bed, pain free The clinical goals for the shift include stable hemodynamics [facility]2025-03-20 15:44:14 The patient is Moderately Stable - Low risk of patient condition declining or worsening The patient's goals for the shift include Get out of bed The clinical goals for the shift include Wean impella while maintaining hemodynamic stability [facility]2025-03-19 20:55:56 The patient is Moderately Unstable - Medium risk of patient condition declining or worsening The patient's goals for the shift include patient comfort & safety, nutrition and PT/OT The clinical goals for the shift include maintain hemodynamic stability Over the shift, the patient did not make progress toward the following goals. Barriers to progression include Weakness. Recommendations to address these barriers include Start tube feeds, consult speech, consult PT/OT. T [facility]2025-03-19 19:45:56 The patient is Moderately Unstable - Medium risk of patient condition declining or worsening The patient's goals for the shift include patient comfort & safety, pain free The clinical goals for the shift include maintain hemodynamic stability [place] [id number] 20:33:56 The patient is Moderately Unstable - Medium risk of patient condition declining or worsening The patient's goals for the shift include patient comfort & safety, Pain/Anxiety control The clinical goals for the shift include maintain hemodynamic stability Over the shift, the patient did not make progress toward the following goals. Barriers to progression include Surgical site discomfort. Recommendations to address these barriers include Continues on low does fentanyl gtt with multi-modal pain regiment started [facility]2025-03-18 19:44:23 The patient is Moderately Unstable - Medium risk of patient condition declining or worsening The patient's goals for the shift include patient comfort & safety The clinical goals for the shift include maintain hemodynamic stability, stop bleeding [place] [id number] 03:29:28 The patient is Moderately Unstable - Medium risk of patient condition declining or worsening The patient's goals for the shift include pain free The clinical goals for the shift include maintain hemodynamic stability, stop bleeding [place] [id number] 23:50:42 Images from the original note were not included. 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 Impella 5.5 placement Left Femoral Artery repaired after ECMO decannulation. Significant bleeding around R Internal Jugular CVC R Superior Chest Drain with shanell blood Absent distal pulses bilaterally On arrival Mila BP 116/75 CVP 9 PAP 35/17 (23) SVO2 93 SVR 1354 CO 5.2 CI 3.3 On fentanyl at 50 mcg/hour, Epinephrine at 3 mcg/min, Amiodarone at 1mg/min, Insulin gtt Vent Mode: Volume targeted pressure limited/assist control FiO2 (%): 50 % S RR: 18 S VT: 370 mL PEEP/CPAP (cm H2O): 7 cm H2O MAP (cm H2O): 11 -Will order bilateral lower extremity arterial dopplers -Post op CXR reviewed as well as KUB Gautam Lake MD MS PGY-4 Department of Pulmonary, Critical Care and Sleep Medicine Cosigned by Morena Chun MD at 08/07/2024 1:29 AM CDT Associated attestation - Morena Chun MD - 08/07/2024 1:29 AM CDT [facility] Addendum HVI5.517/HVI5.517 - Memo Nichelle - 69 y.o. female - : 1955 - - Admit: 07/31/2024 - John Bruno MD - No chief complaint on file. I have seen and [facility] the [facility] Jonathan Lake on 08/06/24. I agree with his assessment and plan as documented. I have independently examined the patient and reviewed the laboratory and radiologic data. Review of Systems: - Unable to ascertain 2/2 intubated and encephalopathy Physical Exam: Gen: Intubated, sedated Neuro: No focal deficits appreciated HEENT: PERRL; EOMI; No scleral icterus CV/Pulses: RRR; 2+ peripheral pulses Pulm: Decreased breath sounds at the bases and No wheezing GI: BS (+); Soft; NTND : Deferred MS: Tone intact Skin/Ext: No changes in lesions; 2+ pitting edema Problem list: Principal Problem: Triple vessel coronary artery disease Active Problems: Acute non-ST elevation myocardial infarction (NSTEMI) (CMS/HCC) ([facility]) Tachy-sen syndrome (CMS/HCC) (HCC) Tobacco use disorder Peripheral vascular disease (HCC) Normocytic anemia Compression fracture of T10 vertebra (HCC) New onset of congestive heart failure (CMS/HCC) ([facility]) Atrial fibrillation with RVR (CMS/HCC) ([facility]) Prediabetes Coronary artery disease Diabetes mellitus ([facility]) Plan: Impella 5.5 P-6 current flow 3.6 L Non pulsatile -Continue serial lactate. Latest lactate: 2.5 -Continue mechanical vent support with lung protective strategy. -Keep n.p.o. and monitor LFTs. -Monitor urine output and avoid nephrotoxins. Replete electrolytes as needed. -Maintain fingersticks < 180. -Monitor for axillary drain output and any signs of bleeding. -Follow-up cultures. Date/Time Action Medication Dose 08/06/241908 Given vancomycin (Vancocin) vial for injection 1,000 mg 08/06/241904 Given cefepime (Maxipime) injection 2 g Results from last 7 days Lab Units 08/07/24 0011 08/06/24 2209 08/06/24 2205 08/06/24 0534 08/06/24 0012 08/05/24 0817 08/05/24 0022 INR 1.25* -- 1.20* -- -- -- -- PTT Seconds 69.7* -- 158.7* 73.0* 60.2* < > 90.0* PLATELETS 10*3/uL -- 401 -- -- 531* -- 459* POC HEMOGLOBIN, VENOUS g/dL -- 9.3* -- -- -- -- -- HEMOGLOBIN g/dL -- 8.9* -- -- 9.0* -- 9.1* < > = values in this interval not displayed. Temp (24hrs), Av.4 ?C (97.6 ?F), Min:36.3 ?C (97.3 ?F), Max:37.2 ?C (98.9 ?F) Lab Results Component Value Date WBC 24.85 (H) 08/06/2024 WBC 10.36 08/06/2024 Procalcitonin 2.22 (HH) 07/28/2024 DVT prophylaxis: POD #0 This patient is critically ill. I spent 42 minutes of critical care time with this patient, not including procedure time. Morena Chun MD ID Pulm/Crit Care Faculty [id number] 06:05:26 HF fellow Nicky notified that patient HR sustaining in the 30's then returning to 60's-70's, patient hemodynamically stable, A&Ox4, asymptomatic. PO amio held, will discuss with dayteam. Pads placed on patient, No additional orders. [facility]2025-03-17 02:40:40 Maintain hemodynamics and airway. [facility]2025-03-17 00:30:00 HF fellow Nciky notified that patient's sen into 30's, patient recovers, asymptomatic, Maps above 65, A&Ox4. Amio to be put on hold, no additional orders. [place] [id number] 05:50:00 HF FELLOW BEDSIDE, NO ADDITIONAL ORDERS PATIENTS BRADYCARDIA ISN'T SUSTAINING AND PATIENT ASYMPTOMATIC WITH A MAP ABOVE 65. [place] [id number] 04:33:00 HF fellow notified that patient still having episodes of bradycardia, down to 38, non sustaining, A&Ox4, hemodynamically stable, answering appropriately, asymptomatic. MD to check on tele. [facility]2025-03-16 03:28:00 MAINTAIN HEMODYNAMIC STABILITY [place] [id number] 02:56:00 Hf fellow notified that patient still having episodes of bradycardia, asymptomatic. MD to follow up EKG obtained. [place] [id number] 02:26:25 HF Fellow nicky notified that patient is having episodes of nonsustained bradycardia. Patient not symptomatic, electrolytes within acceptable range. MD to review tele strip. [facility]2025-03-15 07:59:28 The patient is Moderately Stable - Low risk of patient condition declining or worsening The patient's goals for the shift include patient comfort & safety The clinical goals for the shift include maintain hemodynamic stability Over the shift, the patient did not make progress toward the following goals. Barriers to progression include pending possible high risk PCI. Recommendations to address these barriers include follow MD plan of care. [facility]2025-03-15 03:28:35 MAINTAIN AIRWAY AND HEMODYNAMICS. [place] [id number] 19:41:36 Pt aaox4, pleasant, cooperative, stats she feels bettor, left forearm IV removed d/t pt complaint of discomfort, warm pack placed, Heparin gtt continues to infuse, no visitors but many family/friend called this shift, vs stable, no issues noted. [facility]2025-03-14 15:35:14 The patient is Moderately Stable - Low risk of patient condition declining or worsening The patient's goals for the shift include TO GET SOME REST The clinical goals for the shift include MAINTAIN HEMODYNAMIC STABILTY Over the shift, the patient did not make progress toward the following goals. Barriers to progression include frequent phone calls from family/friends . Recommendations to address these barriers include encourage pt to limit phone calls, designate one or two persons to disseminate information tos and let those two share info given [id number] 09:17:45 The patient is Moderately Unstable - Medium risk of patient condition declining or worsening The patient's goals for the shift include TO GET SOME REST The clinical goals for the shift include MAINTAIN HEMODYNAMIC STABILTY [facility]2025-03-12 19:18:48 Problem: Pain - Adult Goal: Verbalizes/displays adequate comfort level or baseline comfort level Outcome: Progressing Problem: Safety - Adult Goal: Free from fall injury Outcome: Progressing Flowsheets (Taken 08/01/2024 0600) Free from fall injury: Instruct family/caregiver on patient safety Based on caregiver fall risk screen, instruct family/caregiver to ask for assistance with transferring if caregiver noted to have fall risk factors Problem: Discharge Planning Goal: Discharge to home or other facility with appropriate resources Outcome: Progressing Problem: Chronic Conditions and Co-morbidities Goal: Patient's chronic conditions and co-morbidity symptoms are monitored and maintained or improved Outcome: Progressing The patient is Moderately Stable - Low risk of patient condition declining or worsening The patient's goals for the shift include TO GET SOME REST The clinical goals for the shift include MAINTAIN HEMODYNAMIC STABILTY [facility]2025-03-12 09:41:03 The patient's goals for the shift include TO GET SOME REST The clinical goals for the shift include MAINTAIN HEMODYNAMIC STABILTY Problem: Pain - Adult Goal: Verbalizes/displays adequate comfort level or baseline comfort level Outcome: Progressing Problem: Safety - Adult Goal: Free from fall injury Outcome: Progressing Problem: Discharge Planning Goal: Discharge to home or other facility with appropriate resources Outcome: Progressing Problem: Chronic Conditions and Co-morbidities Goal: Patient's chronic conditions and co-morbidity symptoms are monitored and maintained or improved Outcome: Progressing [facility]2025-03-12 00:16:40 Problem: Pain - Adult Goal: Verbalizes/displays adequate comfort level or baseline comfort level Outcome: Progressing Problem: Safety - Adult Goal: Free from fall injury Outcome: Progressing Flowsheets (Taken 07/31/20241999) Free from fall injury: Instruct family/caregiver on patient safety Based on caregiver fall risk screen, instruct family/caregiver to ask for assistance with transferring if caregiver noted to have fall risk factors Problem: Discharge Planning Goal: Discharge to home or other facility with appropriate resources Outcome: Progressing Problem: Chronic Conditions and Co-morbidities Goal: Patient's chronic conditions and co-morbidity symptoms are monitored and maintained or improved Outcome: Progressing The patient is Moderately Stable - Low risk of patient condition declining or worsening The patient's goals for the shift include TO GET SOME REST The clinical goals for the shift include MAINTAIN HEMODYNAMIC STABILTY [facility]2025-03-11 16:51:32 Problem: Pain - Adult Goal: Verbalizes/displays adequate comfort level or baseline comfort level Outcome: Ongoing Problem: Safety - Adult Goal: Free from fall injury Outcome: Ongoing Problem: Discharge Planning Goal: Discharge to home or other facility with appropriate resources Outcome: Ongoing Problem: Chronic Conditions and Co-morbidities Goal: Patient's chronic conditions and co-morbidity symptoms are monitored and maintained or improved Outcome: Ongoing The patient is Moderately Stable - Low risk of patient condition declining or worsening The patient's goals for the shift include TO GET SOME REST The clinical goals for the shift include MAINTAIN HEMODYNAMIC STABILTY [facility] NursingTexas Health Harris [facility] Hospital [id number] 10:46:24 Final Recommendation(s): Secondary Review Review Type: Initial Initial Recommendation: Inpatient Secondary Review Status: Physician advisor review complete Rationale for Recommendation(s): HLOC transfer for CABG v. High risk PCI. Nichelle Hampton is a 69 y.o. female Current Diagnoses Listed: Patient Active Problem List Diagnosis Acute hypoxic respiratory failure (HCC) New onset of congestive heart failure ([facility]/HCC) (HCC) Cellulitis Atrial fibrillation with RVR (CMS/HCC) (HCC) Prediabetes Elevated troponin Hypertension Tobacco use Coronary artery disease Hyponatremia Hyperglycemia Pulmonary edema cardiac cause ([facility]/HCC) (HCC) Triple vessel coronary artery disease Acute non-ST elevation myocardial infarction (NSTEMI) ([facility]/HCC) (HCC) Tachy-sen syndrome ([facility]/HCC) (HCC) Tobacco use disorder Peripheral vascular disease (HCC) Normocytic anemia Diabetes mellitus (HCC) Current Bedding Status: Inpatient Insurance: MEDICARE Midnights Crossed at Time of Review: Zero Midnights Recommendation: Inpatient Status Chart review inclusive of information currently available from: Physician or Procure Notes and Reports, Currently available Labs and Imaging Reports, Nursing Notes, Vital Signs, Relevant Historical Data if Available, and Orders or Scheduled Procedures. Team Notification: Status Change Not Required, No Message Sent [facility] Tower Technician PhysicianTexas Health Harris Methodist Hospital [id number] 07:26:52 Report given to oncoming nurse, line and fluid reconciliation done. All orders reviewed. [facility]2025-03-11 06:27:34 The patient is Moderately Stable - Low risk of patient condition declining or worsening The patient's goals for the shift include TO GET SOME REST The clinical goals for the shift include MAINTAIN HEMODYNAMIC STABILTY Over the shift, the patient did not make progress toward the following goals. Barriers to progression include pending tests. Recommendations to address these barriers include continue with the current plan of care. [place] [id number] 04:38:52 NO VIIOLENCE NOTED [place] [id number] 01:59:03* Consultation (Routine) - Pending Review Specialty Diagnoses / Procedures Referred By Contjade t Referred To Contact Cardiology Diagnoses Coronary artery disease involving makah coronary artery of makah heart, unspecified whether angina present Procedures [place] OFFICE/OUTPATIENT NEW HIGH M[place] 60 [place] [id number] [address] Phone: tel: fax: [place] [id number] [place] [address] Phone: tel: fax: Referral ID Status Reason Start Date Expiration Date Visits Requested Visits Authorized [id number] Pending Review Specialty Services Required 07/30/2024 01/26/2025 36 36 [facility]2025-03-11 01:59:03* Audit-C Score Answer Date of Assessment Author 0 07/28/2024 5:00 AM Cynthia Infante RN * Intimate Partner Violence Question Answer Date of Assessment Author Within the last year, have y ou been humiliated or emotionally abused in other ways by your partner or ex-partner? No 07/28/2024 5:00 AM Rebeka Varma, ALEJO Within the last year, have y ou been afraid of your partner or ex-partner? No 07/28/2024 5:00 AM Rebeka Infante R N Within the last year, have y ou been raped or forced to have any kind of sexual activity by your partner or ex-partner? No 07/28/2024 5:00 AM QUILT SEWER Rebeka Awan R N Within the last year, have y ou been kicked, hit, slapped, or otherwise physically hurt by your partner or ex-partner? No 07/28/2024 5:00 AM QUILT SEWER Rebeka Awan R N * * Calculated C-SSRS Risk Score (Lifetime/Recent) Answer Date of Assessment Author No Risk Indicated 07/28/2024 7:20 PM QUILT SEWER Yajaira Patterson RN * [place] Suicide Severity Rating Scale (Screener/Recent Self-Report) Question Answer Date of Assessment Author 1. Wish to be (Past 1 Month) No 07/28/2024 7:20 PM Lakeisha Calderon RN 2. Non-Specific Active Suici silver Thoughts (Past 1 Month) No 07/28/2024 7:20 PM QUILT SEWER Boogie Patterson RN 6. Suicidal Behavior (Lifetime) No 7:20 PM Yajaira Calderon RN [id number] 01:59:03* Rafal Davidson MD - 07/30/2024 5:02 PM CDT Cardiology Progress Note Patient Active Problem List Diagnosis Date Noted Acute hypoxic respiratory failure (HCC) 07/28/2024 New onset of congestive heart failure (CMS/HCC) ([facility]) 07/28/2024 Cellulitis 07/28/2024 Atrial fibrillation with RVR (CMS/HCC) (HCC) 07/28/2024 Diabetes mellitus (HCC) 07/28/2024 Elevated troponin 07/28/2024 Hypertension 07/28/2024 Tobacco use 07/28/2024 Coronary artery disease 07/28/2024 Hyponatremia 07/28/2024 Hyperglycemia 07/28/2024 Pulmonary edema cardiac cause (CMS/HCC) ([facility]) 07/28/2024 Subjective: Patient was taken down to the Probate Paralegal for MARQUES and cardioversion along with left and right heart cath. MARQUES completed successfully and showed no left atrial appendage clot and cardioversion was attempted with 200 J with temporary baptist of sinus rhythm however patient keeps going back into atrial fibrillation indicating an ongoing process and needs further evaluation for that purpose she underwent left and right heart cath which showed normal filling pressure on the right system but severe multivessel left coronary artery disease as well as right coronary artery disease indicating likely ischemic A-fib. Otherwise patient has remained clinically and hemodynamically stable so far however there is a high likelihood of deterioration and this was discussed with the family and patient in detail. Objective Vital signs in last 24 hours: Temp: [36.5 ?C (97.7 ?F)-37.2 ?C (99 ?F)] 37.2 ?C (99 ?F) Heart Rate: [55-119] 74 Resp: [13-39] 20 BP: (92-128)/(42-78) 100/52 FiO2 (%): [28 %] 28 % Physical Exam: General: No acute distress, answers all questions appropriately HEENT: Neck supple, normocephalic, atraumatic, JVD seen Cardiovascular: Irregularly irregular rhythm, S1 and S2 normal, no obvious murmur/rub/gallop Respiratory: Decreased breath sounds, nasal cannula in place Abdomen: Soft, Non tender, non distended Extremities: No significant lower extremity edema, pulses equal bilateral limbs, no cyanosis, clubbing or erythema Neurology: Awake, alert and oriented, moves all extremities Skin: Normal color, normal skin tone Cardiographics Encounter Date: 07/28/24 ECG 12 lead Result Value Ventricular Rate 109 QRS Duration 74 QT/QTc 354 QTc Calculation 476 R-Dayton 40 T-Dayton 43 Impression ATRIAL FIBRILLATION WITH A RAPID VENTRICULAR RESPONSE WITH ABERRANTLY CONDUCTED OR PREMATURE VENTRICULAR COMPLEX(ES) ABNORMAL ECG WHEN COMPARED WITH ECG OF 28-JUL-2024 12:51, MANUAL COMPARISON REQUIRED, DATA IS UNCONFIRMED Transesophageal echo (MARQUES) with possible cardioversion Result Date: 07/30/2024 Left Ventricle: Left ventricle size is normal. Mild global hypokinesis present. Reduced systolic function with an estimated EF of 45 - 50%. Right Ventricle: Right ventricle size is normal. Normal systolic function in the right ventricle. Left Atrium: Normal sized left atrial appendage. No thrombus in left atrium present. Transthoracic echo (TTE) complete Result Date: 07/28/2024 Patient is in atrial fibrillation with RVR at the time of this study. LV systolic function assessment is suboptimal. Left Ventricle: Left ventricle size is normal. Mild global hypokinesis present. Mildly reduced systolic function with an estimated EF of 45 - 50%. Right Ventricle: Right ventricle size is normal. Normal systolic function in the right ventricle. Left Atrium: Left atrium is moderately dilated. Mitral Valve: Moderate mitral regurgitation present. Tricuspid Valve: Mild to moderate tricuspid regurgitation present. Mild to moderate pulmonary hypertension present. RVSP is 46.00 mmHg. Pericardium: Trivial pericardial effusion present. Left pleural effusion present. Imaging Encounter Date: 07/28/24 XR chest 1 view Narrative EXAM: XR CHEST 1 VIEW DATE: 07/29/2024 11:15 AM CDT. INDICATION: F/u Pulm edema COMPARISON: Chest x-ray 07/28/2024. TECHNIQUE: AP chest. FINDINGS: Lines, Tubes and Hardware: None. Lungs and Pleura: Stable small bilateral pleural effusions and diffuse edema pattern opacities. There is no pneumothorax. Heart and Mediastinum: The cardiomediastinal silhouette has not significantly changed. There are atherosclerotic calcifications of the aortic arch. Pulmonary vascular congestion is present. Bones: No acute skeletal abnormality is identified. ImpressionNo significant changes compared to the prior exam. Electronically signed by: Ivan Curran MD 07/29/2024 11:37 AM CDT RP Lab Review All pertinent labs reviewed in detail. Assessment and Plan: Paroxysmal atrial fibrillation with rapid ventricular responseNon-ST elevation myocardial infarction Multivessel coronary artery disease Severe peripheral vascular disease Acute systolic congestive heart failure -improving Acute hypoxic respiratory failure likely due to pulmonary edema and superimposed pneumonia -improving Sepsis due to cellulitis and/or pneumonia -improving Anemia Patient was taken down to the [facility] for MARQUES and cardioversion along withleft and right heart cath. MARQUES completed successfully and showed no left atrial appendage clot and cardioversion was attempted with 200 J with temporary baptist of sinus rhythm however patient keeps going back into atrial fibrillation indicating an ongoing process and needs further evaluation for that purpose she underwent left and right heart cath which showed normal filling pressure on the right system but severe multivessel left coronary artery disease as well as right coronary artery disease indicating likely ischemic A-fib. Regarding AF management, patient is status post MARQUES guided cardioversion and is not fully cardioverted and continues to have runs of atrial fibrillation. I recommend that we continue amiodarone drip for now along with heparin drip.will discontinue digoxin and continue metoprolol titrate 25 mg every 8 hours. Right heart cath was done to assess the filling pressures and basically she has relatively normal right-sided filling pressure including normal RA, RV and pulmonary artery pressure with mean PA pressure of 22 mmHg and estimated wedge pressure of 12 to 14 mmHg I recommend that we stop Lasix drip at this time Regarding NSTEMI and multivessel coronary artery disease, continue Heparin drip for now and I have requested a relatively urgent/emergent transfer to [facility] for high risk PCI versus CABG 2D echocardiogram was done at the time of AF with RVR and showed mild global LV dysfunction Continue aspirin 81 mg daily along with statin Oxygen requirements are improving and wean off nasal cannula as tolerated Will follow this patient closely during this hospitalization make changes to her care plan as needed Complex patient requiring ICU level of care, complex medical decision making Thank you for involving me in the care of your patient. Please call if you have additional questions/concerns. Rafal Davidson MD07/30/24 5:02 PM * Rafal Davidson MD - 07/30/2024 11:41 AM CDT Sedation Plan ASA 4 Mallampati class: II. Risks, benefits, and alternatives discussed with patient. * Spring Waite MD - 07/30/2024 9:03 AM CDT Medical Surgery Nurse Service [facility] MD [place] [id number] [address] [facility] [id number] #[phone] Date:07/30/24 LOS: 2 days No events overnight, was on amio gtt, worked with PT/OT, then afib OBJECTIVE: Vitals: 07/30/24 0615 07/30/24 0630 07/30/24 0700 07/30/24 0800 BP: (!) 121/51 (!) 114/50 108/60 (!) 107/48 Pulse: 73 71 100 (!) 102 Resp: (!) 27 (!) 29 (!) 29 (!) 30 Temp: 37.2 ?C (99 ?F) SpO2: 94% 94% 93% 94% Intake/Output Summary (Last 24 hours) at 07/30/2024 0903 Last data filed at 07/30/2024 0825 Gross per 24 hour Intake 1613.92 ml Output 2170 ml Net -556.08 ml FiO2 (%): [28 %] 28 % Labs/Meds/Imaging/Echo Labs/Imaging/Pertinent Studies and meds all reviewed, please see chart for further information. Constitutional: Appears well. Vitals as listed Eyes: No scleral icterus or erythematous conjunctiva ENM: No bleeding of the gums, mucous membranes are moist, on oxygen via nasal cannula Respiratory: Respiratory effort was non-labored. CTAB no w/r/r CV: Irregularly, irregular edema: None Abdomen: soft, non-tender, non-distended. No guarding, rigidity, rebound. Normoactive bowel sounds in all quadrants. Skin: Warm extremities, no rashes Neuro: no focal deficits Psych: appropriate mood/affect, oriented x3 Assessment & Plan Acute hypoxic respiratory failure (HCC) New onset of congestive heart failure (CMS/HCC) (HCC) Cellulitis Atrial fibrillation with RVR (CMS/HCC) (HCC) Diabetes mellitus (HCC) Elevated troponin Hypertension Tobacco use Coronary artery disease Hyponatremia Hyperglycemia Pulmonary edema cardiac cause (CMS/HCC) (HCC) Patient is a 69-year-old female initially admitted to the hospital on July 28. She had acute hypercapnic respiratory failure hence transferred to ICU. Active issues:- Acute hypercapnic respiratory failure - Metabolic alkalosis -copd not on home oxygen, tobacco use -htn hx - CKD stage IV - Anemia likely chronic disease - Coagulopathy present on admission - DMT2, A1c 6.27 - Negative COVID/MRSA/influenza PCR/RSV - Volume overload with mild pleural effusions/pulmonary edema, echo from yesterday pending, TTE: EF 45 to 50% this, mild to moderate pulmonary hypertension present on admission -Status post left and right heart cath today, found to have left main disease with severe multivessel coronary artery disease and also proximal RCA disease Plan:-Emergent transfer initiated to [facility] discussed with cardiology. -ahrf, afib rvr, nstemi -wean oxygen -hr fluctuates, pvc's noted -sbp stable -on metop/digoxin, Dr. Davidson following -now on amio 1.0 per cards -on hep gtt -lasix stopped per cards -getting MARQUES, cardioversion, LHC/RHC this AM -diet per cards post procedure -perkins 07/28, discont today -mg replaced, given 2 grams -sugars ok yesterday, monitor today -ipra/xopenex to prn vs scheduled -start famotidine for gi ppx while on hep gtt -dc lasix gtt -IS/CPT -bipap prn and at night -s/p spider bite to left hand, no bruising, complete course of Unasyn for 5 days -Care discussed with patient and her family at bedside PlanAdditionally: - Continue multimodal pain regimen and increase as tolerated for pain control - Delirium precautions (During the day, lights on, TV on with sounds, windows open. At night, try not to have unnecessary lab draws, tests, images. No lights on or TV on and please call window shades). - Titrate oxygen therapy to SpO2>92% - Diet: NPO Diet NPO except: Sips with meds - Avoid nephrotoxic drugs; Renally dose all medications as needed - Replete electrolytes - FS goals 140-180 Lab Results Component Value Date Hgb A1C 6.27 (H) 07/28/2024 - Nursing care with frequent turning to prevent DTIs and Sacral decubs- PT/OT consulted as tolerated Code Status: No Order Critical care time:40 >Please excuse any typographical errors, documentation prepared usingelectronic dictation software and may contain unintended word substitutions. Kindly interpret in the clinical context. Thanks so much. >There is concern for 1 or more organ system failure that has specifically been addressed by intensive care team. Our ICU interventions needed to prevent the patient from imminent or life threatening deterioration as vital organ failure is present and requires high complexity decision making and coordination of care with various physician consultants to support patient's condition. Patient's condition discussed in multidisciplinary rounds were nursing and physician notes were reviewed. >Critical Care time spent with face to face patient care/patient reassessment, coordination of care with family when patient cannot participate and with nursing staff and consulting physicians, reviewing test results (inclusive of laboratory data, CXRs, ABG, pulse oximetry), and availability on ICU to care for patient, and time for documentation in Minutes: Please see above. >Care discussed with all relevant providers. Dr. Waite Pulmonary/Critical Care Medicine [facility] [id number] [facility] [address] #[phone] * Rafal Davidson MD - 07/29/2024 10:26 AM CDT Cardiology Progress Note Patient Active Problem List Diagnosis Date Noted Acute hypoxic respiratory failure (HCC) 07/28/2024 New onset of congestive heart failure (CMS/HCC) ([facility]) 07/28/2024 Cellulitis 07/28/2024 Atrial fibrillation with RVR (CMS/HCC) ([facility]) 07/28/2024 Diabetes mellitus (HCC) 07/28/2024 Elevated troponin 07/28/2024 Hypertension 07/28/2024 Tobacco use 07/28/2024 Coronary artery disease 07/28/2024 Hyponatremia 07/28/2024 Hyperglycemia 07/28/2024 Pulmonary edema cardiac cause (CMS/HCC) (HCC) 07/28/2024 Subjective: Patient has been in atrial fibrillation with RVR since yesterday afternoon and has received another push of amiodarone 150 mg last night along with digoxin. Overall oxygen requirements are improving and excellent urine output noted on Lasix drip. Patient has remained clinically hemodynamically stable although borderline low blood pressure noted. Clinically patient continues to do well and does not report any significant chest pain, shortness of breath or palpitations at this time. Objective Vital signs in last 24 hours: Temp: [36.3 ?C (97.4 ?F)-36.8 ?C (98.3 ?F)] 36.3 ?C (97.4 ?F) Heart Rate: [84-164] 121 Resp: [11-40] 11 BP: (91-123)/(49-82) 103/57 FiO2 (%): [32 %] 32 % Physical Exam: General: No acute distress, answers all questions appropriately HEENT: Neck supple, normocephalic, atraumatic, JVD seen Cardiovascular: Irregularly irregular rhythm, S1 and S2 normal, no obvious murmur/rub/gallop Respiratory: Decreased breath sounds, nasal cannula in place Abdomen: Soft, Non tender, non distended Extremities: No significant lower extremity edema, pulses equal bilateral limbs, no cyanosis, clubbing or erythema Neurology: Awake, alert and oriented, moves all extremities Skin: Normal color, normal skin tone Cardiographics Encounter Date: 07/28/24 ECG 12 lead Result Value Ventricular Rate 77 Atrial Rate 77 W[place] Interval 122 QRS Duration 74 QT/QTc 424 QTc Calculation 479 P-Dayton 44 R-Dayton -15 T-Dayton 20 Impression SINUS RHYTHM NORMAL ECG NO PREVIOUS ECGS AVAILABLE Transthoracic echo (TTE) complete Result Date: 07/28/2024 Patient is in atrial fibrillation with RVR at the time of this study. LV systolic function assessment is suboptimal. Left Ventricle: Left ventricle size is normal. Mild global hypokinesis present. Mildly reduced systolic function with an estimated EF of 45 - 50%. Right Ventricle: Right ventricle size is normal. Normal systolic function in the right ventricle. Left Atrium: Left atrium is moderately dilated. Mitral Valve: Moderate mitral regurgitation present. Tricuspid Valve: Mild to moderate tricuspid regurgitation present. Mild to moderate pulmonary hypertension present. RVSP is 46.00 mmHg. Pericardium: Trivial pericardial effusion present. Left pleural effusion present. Imaging Encounter Date: 07/28/24 XR chest 1 view Narrative EXAM: Chest x-ray, 1 view(s). CLINICAL HX:Reason for study: SOB Relevant clinical info: . Age: 69 years.Gender: Female. TECHNIQUE:As above. Facility: [facility]. COMPARISON:Chest x-ray: Yesterday. Impression1. Support apparatus: None. 2. Stable marked interstitial edema. 3. Stable mild pleural effusions. 4. No pneumothorax. Electronically signed by: Craig Shelton MD 07/28/2024 06:11 AM [facility] Lab Review All pertinent labs reviewed in detail. Assessment and Plan: Paroxysmal atrial fibrillation with RVRAcute hypoxic respiratory failure likely due to pulmonary edema and superimposed pneumonia Non-ST elevation myocardial infarction Acute systolic congestive heart failure Acute pulmonary edema Sepsis due to cellulitis and/or pneumonia Anemia The current presentation is likely consistent with acute hypoxic respiratory failure that got precipitated in the setting of sepsis and cellulitis and she may have received IV fluids at the outside hospital She does have elevated troponin and the pattern seems to be suspicious for type I myocardial infarction however in the setting of severe hypoxic respiratory failure and sepsis a demand supply mismatch process cannot be excluded 2D echocardiogram was done at the time of AF with RVR and showed mild global LV dysfunction Regarding AF management, I recommend that we continue amiodarone drip through today and I will increase the rate of amiodarone drip to 1 mg/min. We will also continue digoxin 125 mcg every 6 hours through today and I will increase the dose of metoprolol to 25 mg every 8 hours. Continue heparin drip. Will plan for MARQUES guided cardioversion tomorrow. Regarding acute CHF, she is on Lasix drip at this time with good urine output and thus continue as long as renal function is steady however I think she is almost close to euvolemic state and thus we will consider changing her to torsemide 20 mg daily tomorrow onwards Regarding NSTEMI, continue Heparin drip and will plan for right heart cath and left heart cath tomorrow Continue aspirin 81 mg daily along with statin Oxygen requirements are improving and wean off nasal cannula as tolerated Will follow this patient closely during this hospitalization make changes to her care plan as needed Complex patient requiring ICU level of care Thank you for involving me in the care of your patient. Please call if you have additional questions/concerns. Rafal Davidson MD07/29/24 10:26 AM * Esteban Delarosa MD - 07/29/2024 10:08 AM CDT Subjective On 3L NC Neg 2.6L in past 24hrs No new complaints Objective Last Recorded Vitals Blood pressure (!) 103/57, pulse (!) 121, temperature 36.3 ?C (97.4 ?F), temperature source Axillary, resp. rate (!) 11, weight 54 kg (119 lb 0.8 oz), SpO2 93%. Physical Exam: Gen: not in overt distress HEENT: anicteric, acyanosed, moist, pink, supple neck Neuro: alert and oriented, follows commands Cardio: S1S2 reg, warm ext Pulm: equal chest expansion, CTAB, Abd: non-distended, soft, non-tender Assessment & Plan Acute hypoxic respiratory failure (HCC) -Continue supplemental O2 -Bronchodilators New onset of congestive heart failure (CMS/HCC) (HCC) -Diurese with Lasix; Wean from 10mg/hr to 5mg/hr -Aspirin, heparin infusion -Obtain echocardiogram > EF 45-50% -Cardiology consult Cellulitis - Antibiotics; likely continue antibiotics for another 4 to 5 days from admission; follow-up culture Atrial fibrillation with RVR (CMS/HCC) (HCC) -Low-dose metoprolol as tolerated by BP; titrate as indicated - Amio infusion - Dig load Diabetes mellitus (HCC) - Insulin sliding scale Elevated troponin -As above Hypertension As above Tobacco use Counseled on cessation Coronary artery disease As above Hyponatremia Monitor Hyperglycemia Insulin sliding scale Pulmonary edema cardiac cause (CMS/HCC) ([facility]) As above I spent 30 min of Critical care time , in reviewing, laboratory and radiographic data, in direct management of patient at bedside as well as coordination. Time spent does not include time spent by any other provider or time spent in doing procedure. Patient required critical care due to the acute impairment of vital organ systems and a high probability of imminent and life threatening deterioration. Current Diet: Adult Diet Heart Healthy; No concentrated sweets * Isaias Miranda RN - 07/28/2024 7:24 PM QUILT SEW[facility] Midline Insertion Procedure Date: 07/28/2024 Time: 1912 pm Informed Consent: Signed by patient and Verified consent is signed, witnessed, and on chart Time Out: Patient identification verified: with Su Xiong RN, Correct procedure confirmed: with Su Xiong RN, Correct site confirmed: with Su Xiong RN, and Patient ID, correct procedure, and site: with: Su Xiong RN Performed by: Isaias Miranda RN Referred by: Dr Delarosa Supervised by: Assisted by: Preparation and Technique: Ultrasound localization, Modified Seldinger technique (MST), Number of attempts 1, and Saline lock Sterile preparation: 2% chlorhexidine Local anesthesia: 1% xylocaine without epinephrine 5 ml Catheter size: 4 Fr Catheter length: 12 cm Vein depth: 0.5 - 1.0 cm External catheter length: 0 cm Mid arm circumference: 30 cm Length antecubital to mid arm: Patency: positive blood return, blood aspirated easily, and flushed easily Dressing applied: CHG device dressing Stylet: intact Lot Numbers: Insertion Kit: [id number] Expiration Date: Brand: Bard Line Location: Basilic: left Complications: None Procedure Tolerated: Well Procedure Outcome: Successful T SEWER * Gab Tony NP - 07/28/2024 5:10 AM [facility] SE[facility] Images from the original note were not included. ICU Acceptance Note 69F with pmhx including HTN, CAD, DM, non-compliance with medications, and tobacco abuse who initially presented to [facility] for complaints of a spider bite to her left hand on 07/24/2024. She was admitted for acute sepsis and started on antibiotics for the cellulitis. Her hospital course was complicated by A-fib with RVR, new onset acute heart failure with associated pulmonary edema and bilateral pleural effusions requiring BIPAP support. She was transferred to [facility] for cardiology and pulmonary evaluation for suspected NSTEMI, CHF, A-fib RVR, and pulmonary edema. Upon exam, she is awake, alert, oriented. Participates fully in her exam. She currently denies any chest pain or shortness of breath while on the BIPAP. Bedside monitor showing NSR. She endorses her left hand is feeling much better and the redness and swelling has significantly improved. No other complaints at this time. Visit Vitals BP 136/65 Pulse 78 Temp 36.1 ?C (97 ?F) (Axillary) Resp 13 Physical Exam: Vitals and nursing note reviewed. Constitutional: General: She is not in acute distress. HENT: Head: Normocephalic and atraumatic. Eyes: Extraocular Movements: Extraocular movements intact. Pupils: Pupils are equal, round, and reactive to light. Cardiovascular: Rate and Rhythm: Normal rate and regular rhythm. Pulses: Normal pulses. Heart sounds: Normal heart sounds. Pulmonary: Effort: Tachypnea present. Breath sounds: Examination of the right-lower field reveals decreased breath sounds. Examination of the left-lower field reveals decreased breath sounds. Decreased breath sounds and rales present. No wheezing. Abdominal: General: Abdomen is flat. Palpations: Abdomen is soft. Musculoskeletal: Right lower leg: No edema. Left lower leg: No edema. Skin: General: Skin is warm and dry. Neurological: General: No focal deficit present. Mental Status: She is alert and oriented to person, place, and time. GCS: GCS eye subscore is 4. GCS verbal subscore is 5. GCS motor subscore is 6. Assessment and Plan Acute hypoxic respiratory failureAcute pulmonary edema, likely cardiogenic NSTEMI with hx of CAD A-fib with RVR, currently resolved Cellulitis of the left hand Hyperglycemia with underlying type 2 diabetes mellitus -Continue on BIPAP, adjust based on ABG-Nebs -May consider initiating Lasix based on labs and hemodynamics -Continue ASA -Was recently switched from wt based enoxaparin to apixaban at OSH, will initiate on heparin drip without bolus in anticipation for possible heart cath in near future -Received amiodarone bolus at OSH, currently NSR on ECG, continue on PO metoprolol -Continue on Unasyn -SS insulin for glycemic control -Cardiology consult in AM [facility]2025-03-11 01:59:03Pending Results Scheduled Orders Name Type Priority Associated Diagnoses Order Schedule POCT Glucose Point of Care Testing - Docked Device Routine Every 4 hours (Lab) until discontinued starting 07/28/2024, 16 completed POCT Glucose Point of Care Testing - Docked Device Routine Every 15 minutes as needed until discontinued starting 07/28/2024 Complete Blood Count w/Diff and Platelet Lab Routine Morning draw (La b) for 7 Occurrences starting 07/30/2024 until 08/05/2024, 1 completed Potassium Level Lab Timed Now then every 12 hours until discontinued starting 07/29/2024, 2 completed Magnesium Level Lab Routine Once (Lab ) for 1 Occurrences starting 07/31/2024 until 07/31/2024 Phosphorus Level Lab Routine Once (La b) for 1 Occurrences starting 07/31/2024 until 07/31/2024 Calcium Level Ionized Whole Blood Lab Routine Once (Lab) f or 1 Occurrences starting 07/31/2024 until 07/31/2024 PTT Lab Routine Once (Lab) for 1 Occurrences starting 07/30/2024 until 07/30/2024 Non-Invasive Ventilator - Respiratory Care Routine For RT frequenc y use only for continuous procedures with task-based reminders at 8a and 8p until discontinued starting 07/30/2024 Basic Metabolic Panel Lab Routine Morning draw (La b) for 1 Occurrences starting 07/31/2024 until 07/31/2024 Assess post-sheath cath site Wound Ostomy Routine Until discontinu ed until discontinued starting 07/30/2024 Site care Wound Ostomy Routine Until discon tinued until discontinued starting 07/30/2024 Assess cath site pre-sheath removal Wound Ostomy Routine Until discont inued until discontinued starting 07/30/2024 Scheduled Referrals Name Type Priority Associated Diagnoses Order Schedule Cardiac Rehabilitation Phase II Referral Outpatient Referral Routine Coronary artery disease involving makah coronary artery of makah heart, unspecified whether angina present Expected: 07/30/2024 (Approximate), Expires: 07/30/2025 Health Maintenance Due Date Last Done Comments Bone Density Scan 1953 CT Colonography 1953 Colonoscopy 1953 Colorectal Cancer Screening 1953 FIT-DNA 1953 FIT 1953 FOBT 1953 Sigmoidoscopy 1953 Annual Physical 02/26/1956 Pneumococcal Vaccine: 65+ Ye ars (1 of 2 - PCV) 1959 Diabetes: Foot Exam 1963 Diabetes: Retinopathy Screening 1963 DTaP/Tdap/Td Vaccines (1 - Tdap) 02/26/1972 Diabetes: Urine Protein Screening 02/26/1972 Mammogram 1993 Zoster Vaccines (1 of 2) 2003 Respiratory Syncytial Virus (RSV) or >=60 (1 - Risk 60-74 years 1-dose series) 2013 Influenza Vaccine (#1) 2024 Diabetes: Hemoglobin A1C 01/28/2025 07/28/2024 Lipid Panel 07/28/2025 07/28/2024 HIB Vaccines Aged Out No longer eligi ble based on patient's age to complete this topic HPV Vaccines Aged Out No longer eligi ble based on patient's age to complete this topic Hepatitis A Vaccines Aged Out No long er eligible based on patient's age to complete this topic Hepatitis B Vaccines Aged Out No long er eligible based on patient's age to complete this topic IPV Vaccines Aged Out No longer eligi ble based on patient's age to complete this topic Meningococcal Vaccine Aged Out No laura black eligible based on patient's age to complete this topic Rotavirus Vaccines Aged Out No longer eligible based on patient's age to complete this topic [id number] 01:59:03 Diagnosis Acute hypoxic respiratory fa ilure ([facility]) - Primary Elevated troponin Other abnormal blood chemistry Atrial fibrillation with RVR ([facility]) ([facility]) Coronary artery disease invo lving makah coronary artery of makah heart, unspecified whether angina present New onset of congestive hear t failure ([facility]) ([facility]) Cellulitis Cellulitis and abscess of unspecified site Atrial fibrillation with RVR ([facility]) ([facility]) Diabetes mellitus ([facility]) Type II or unspecified type diabetes mellitus without mention of complication, not stated as uncontrolled Elevated troponin Other abnormal blood chemistry Hypertension Unspecified essential hypertension Tobacco use Coronary artery disease Coronary atherosclerosis of unspecified type of vessel, makah or graft Hyponatremia Hyposmolality and/or hyponatremia Hyperglycemia Other abnormal glucose Pulmonary edema cardiac cause ([facility]) ([facility]) Pulmonary congestion and hypostasis Elevated troponin Other abnormal blood chemistry Atrial fibrillation with RVR ([facility]) ([facility]) Coronary artery disease invo lving makah coronary artery of makah heart, unspecified whether angina present [id number] 01:59:03 [facility]villeJkhtdmv8429-03-86 01:40:00 Ambulance came in , pt stable no chest pain no sob, heparin gtt and amiodarone gtt continued. pts daughter in law Eula was notified about the transfer to [id number] 21:21:18 Administrative approval for interfacility transfer received as follows: Time of Approval: 21:14 Approval given by: Gab Huizar RN-TC Accepting Physician: John Bruno Accepting Hospital: [facility] Accepting Unit: [facility] , HF ICU bed 521 Number to call report:[phone] [facility]2025-03-10 13:34:56 RN(Marble Mason) took over this patient from the morning RN to continue the care from now on till the end of my shift. [facility]2025-03-10 08:24:48 The patient is Moderately Stable - Low risk of patient condition declining or worsening The patient's goals for the shift include Feel better The clinical goals for the shift include stable HR and Rythm Problem: Excessive Fluid Volume Goal: Fluid and electrolyte balance are achieved/maintained Outcome: Progressing Problem: Inadequate Airway Clearance Goal: Patient will maintain patent airway Outcome: Progressing Goal: Patient will achieve/maintain normal respiratory rate/effort Outcome: Progressing Problem: Knowledge Deficit Goal: Patient/family/caregiver demonstrates understanding of disease process, treatment plan, medications, and discharge instructions Outcome: Progressing [facility]2025-03-10 05:42:00 The patient is Moderately Stable - Low risk of patient condition declining or worsening The patient's goals for the shift include FEEL BETTER The clinical goals for the shift include HR WNL Over the shift, the patient did not make progress toward the following goals. Barriers to progression include . Recommendations to address these barriers include . [facility]2025-03-09 15:00:00 The patient is Moderately Unstable - Medium risk of patient condition declining or worsening The patient's goals for the shift include stable VS The clinical goals for the shift include Contral Heart Rate Problem: Inadequate Airway Clearance Goal: Patient will maintain patent airway Outcome: Progressing Goal: Patient will achieve/maintain normal respiratory rate/effort Outcome: Progressing Problem: Knowledge Deficit Goal: Patient/family/caregiver demonstrates understanding of disease process, treatment plan, medications, and discharge instructions Outcome: Progressing Problem: Excessive Fluid Volume Goal: Fluid and electrolyte balance are achieved/maintained Outcome: Progressing [facility] [id number] 07:51:08 Images from the original note were not included. Understanding Atrial Fibrillation - Video Disorders in the heart's electrical system can lead to arrhythmias, or an abnormal heart rhythm. There are many types of arrhythmias and they're classified by where they occur in the heart and their pattern of abnormality. This segment will explain the arrhythmia known as Atrial Fibrillation. To view the video go to this web address: [email or web address] Or, scan this QR code with your smart phone ? [facility] [id number] 07:51:01 Images from the original note were not included. [id number] Atrial Fibrillation Atrial fibrillation is a condition in which the heart beats in an irregular pattern. It is the most common abnormal heart rhythm. It is caused by a problem in the heart's electrical pathways within the muscle of the upper chambers of the heart (atria). It can be a sign of heart disease or other health problems that affect the heart. Heart palpitations are a common symptom of atrial fibrillation. This is the feeling that your heart is fluttering, or beating fast, hard, or irregular. When the heart beats too fast, it doesn't pump blood very well. This can cause other symptoms, such as anxiety, fatigue, shortness of breath, chest pain, dizziness, or fainting. Atrial fibrillation may come and go on its own, which is known as paroxysmal atrial fibrillation. It can last from a few hours to a couple of days. Or it may become persistent, lasting for weeks or months at a time. It can even become lifelong (permanent). Some symptoms of atrial fibrillation are hard to notice. For instance, some people develop subtle fatigue. Others notice a reduced ability to exercise. Some people have no symptoms. Atrial fibrillation is more common in older adults. It may be caused by heart disease or other conditions in the body that affect the heart. They include: ? Coronary artery disease (atherosclerosis), sometimes called blocked arteries ? High blood pressure ? Disease of the heart valves ? Enlarged heart ? Heart failure Atrial fibrillation can also occur without heart disease because of: ? Overactive thyroid (hyperthyroid) ? Chronic lung disease (COPD, emphysema, or bronchitis) ? Heavy alcohol use ? Heart stimulants, such as cocaine, amphetamines, diet pills, certain decongestant cold medicines, caffeine, or nicotine ? Infection ? Blood clot in the lung (pulmonary embolus) ? Diabetes ? Chronic kidney disease ? Obesity ? Obstructive sleep apnea ? Extreme and continued athletic conditioning ? Certain genetic diseases Treating or removing these causes will help your treatment for atrial fibrillation. It will also make it less likely for it to come back. Atrial fibrillation can alternate back and forth with another abnormal rhythm called atrial flutter. Atrial flutter is a more regular heart rhythm. It is also linked to an increased risk for stroke. Correct treatment of these arrhythmias can lower your risk for stroke. Home care Follow these guidelines when caring for yourself at home: ? Go back to your usual activities as soon as you are feeling back to normal. ? If you smoke, stop smoking. Contact your healthcare provider or a local stop-smoking program for help. ? Don't use stimulants like alcohol, cocaine, amphetamines, diet pills, certain decongestant cold medicines, caffeine, or nicotine. ? If your provider prescribed medicine to stop atrial fibrillation from coming back, take it exactly as directed. Some medicines must be taken every day, not just when you have symptoms. This will help them work as they should. ? If you were prescribed a blood-thinning medicine, take it exactly as prescribed. One of these medicines, called warfarin, needs your blood to be tested regularly as advised by your healthcare provider. This will make sure you are getting the dose that is right for you. It also lowers your risk for side effects. You may have been prescribed other blood-thinning medicines that don't need regular testing. Follow-up care Follow up with your healthcare provider as advised. When to get medical care Call your healthcare provider if any of these occur: ? Swelling in the legs that gets worse ? Unexpected weight gain ? Pain, redness, or swelling in 1 leg Call 911 Calling 911 is the fastest and safest way to get the emergency department. The paramedics can also start treatment on the way to the hospital, if needed. Call 911 or get medical help right away if any of these occur: ? Weakness of an arm, leg, one side of the face ? Chest pain ? Shortness of breath, or feeling that you can't get enough air ? Feeling lightheaded, faint, or dizzy ? Your heartbeat is very fast, slow, or irregular compared with your regular heartbeat ? Uncontrolled bleeding ? Trouble with speech or vision ? Extreme drowsiness, confusion, dizziness, or fainting Last Reviewed Date: 2022 00:00:00 ? [id number] [employer]. All rights reserved. This information is not intended as a substitute for professional medical care. Always follow your healthcare professional's instructions. [facility]2025-03-09 04:01:06 The patient is Moderately Unstable - Medium risk of patient condition declining or worsening The patient's goals for the shift include stable VS The clinical goals for the shift include resolve afib rvr Problem: Inadequate Airway Clearance Goal: Patient will maintain patent airway Outcome: Progressing Problem: Excessive Fluid Volume Goal: Fluid and electrolyte balance are achieved/maintained Outcome: Progressing [facility]2025-03-08 17:40:00 Instructed by Makenna Cheema NP to repeat PTT before adjusting heparin drip. [facility]2025-03-08 17:12:00 Patient eating dinner while blood glucose level was assessed. [facility]2025-03-08 08:00:00 The patient is Moderately Unstable - Medium risk of patient condition declining or worsening The patient's goals for the shift include no pain and no shortness of breath The clinical goals for the shift include stable vital signs [facility] Osvaldo
[2024-08-22] MEDS ORDERED: ACETAMINOPHEN 325 MG TABLET PO PRN (22:04)
[2024-08-22] MEDS ORDERED: POLYETHYL GLY 3350 17 GM/DOSE PO PRN (22:06)
[2024-08-22] MEDS ORDERED: BISACODYL 10 MG RECTAL SUPP PR PRN (22:06)
[2024-08-22 22:13] LABS: Specific Gravity 1.009 (1.005-1.030); Sqamous Epithelial <5 /HPF (None Seen); Urine Bacteria None Seen /HPF (<20); Urine Bilirubin NEGATIVE (Negative); Urine Blood Negative (Negative); Urine Clarity Turbid (Clear); Urine Color Colorless (Yellow); Urine Crystals Unidentified Few /HPF (None Seen); Urine Culture Reflex Order NOT NEEDED; Urine Glucose 3+ (Negative); Urine Ketones NEGATIVE (Negative); Urine Micro Reflex YN NO BILL MICROSCOPIC; Urine Nitrite NEGATIVE (Negative); Urine Protein NEGATIVE (Negative); Urine RBC <5 /HPF (None Seen); Urine Urobilinogen Normal (Normal); Urine WBC <5 /HPF (<5); Urine WBC Clump Rare /HPF (None Seen); Urine Yeast (Budding) Few /HPF (None Seen)
[2024-08-22] MEDS ORDERED: REPATHA SURECLICK 140 MG SQ SCH (22:15)
[2024-08-22] MEDS: TICAGRELOR 90 MG TABLET PO SCH (22:39)
[2024-08-22] MEDS: APIXABAN 5 MG TABLET PO SCH (22:39)
[2024-08-23 06:56] LABS: Absolute Basophils 0.1 K/uL (0-0.5); Absolute Eosinophils 0.4 K/uL (0-0.5); Absolute Lymphocytes (CBC) 1.5 K/uL (0.7-4.9); Absolute Monocytes 0.9 K/uL (0.1-1.3); Absolute Neutrophil 6.5 K/uL (1.8-8.0); Basophils % 1.2 % (0-1.3); Eosinophils % 4.5 % (0-4.4); Hematocrit 29.7 % (36.0-45.0); Hemoglobin 9.9 g/dL (12.0-15.0); Lymphocytes % 15.8 % (15.3-44.8); MCH 31.6 pg (27.0-35.0); MCHC 33.5 g/dL (32.0-36.0); MCV 94.3 fL (80-100); MPV 9.1 fL (7.6-11.3); Monocytes % 9.2 % (3.3-12.3); Neutrophils % 69.3 % (41.7-73.7); Nucleated Red Blood Cells % 0.1 % (0-0); Platelets 618 thou/uL (152-406); RBC Red Blood Cell Count 3.14 M/uL (3.86-4.86); Red Cell Distribution Width 18.5 % (12.1-15.2)
[2024-08-23 07:09] LABS: Albumin 2.9 g/dL (3.4-5.0); Anion Gap 9.5 mEq/L (5.0-15.0); Magnesium 2.5 mg/dL (1.6-2.4); Potassium 4.5 mEq/L (3.5-5.1)
[2024-08-23] MEDS: INSULIN REGULAR (HUMAN) 100 UNIT/ML SQ SCH (07:30)
[2024-08-23] MEDS: PANTOPRAZOLE 40MG TABLET PO SCH (07:38)
[2024-08-23] MEDS: LOSARTAN POTASSIUM 50 MG TABLET PO SCH (08:00)
[2024-08-23] MEDS ORDERED: TICAGRELOR 90 MG TABLET PO SCH (08:00)
[2024-08-23] MEDS: FARXIGA 10 MG PO SCH (08:00)
[2024-08-23] MEDS ORDERED: APIXABAN 5 MG TABLET PO SCH (08:00)
[2024-08-23] MEDS: ASPIRIN EC 81 MG TAB PO SCH (09:45)
[2024-08-23] MEDS: CRANBERRY FRUIT EXTRACT 425 MG CAPSULE PO SCH (09:45)
[2024-08-23] MEDS: SENOSIDES 8.6 MG TAB PO SCH (09:46)
[2024-08-23] MEDS: THIAMINE HCL 100 MG TABLET PO SCH (09:46)
[2024-08-23] MEDS: AMIODARONE HCL 200 MG TAB PO SCH (09:46)
[2024-08-23] MEDS: FOLIC ACID 1 MG TABLET PO SCH (09:46)
[2024-08-23] MEDS: ATORVASTATIN 40 MG TAB PO SCH (09:46)
[2024-08-23] MEDS ORDERED: MAGNESIUM OXIDE 400 MG TAB PO SCH (20:00)
--- NOTE | 2024-08-23 22:20 | HP ---
Date of Admission: 08/22/2024 Time Of Service: 1 p.m. Chief Complaint: "I am weak. I need to get stronger." History Of Present Illness: Ms. Hampton is a 69-year-old patient with hypertension, diabetes mellitus, coronary artery disease, tobacco use, who was transferred to [facility] from [facility] left heart catheterization revealed severe left main coronary artery disease and multivessel diseas e. She was originally admitted after a fall and decline in cognitive functioning. She was diagnosed with cellulitis in the hand after a spider bite; however, during that hospitalization, she had hypox ic respiratory failure requiring BiPAP. She was diagnosed with [id number]-[id number] myocardial infarction, new onset CHF which is mild, EF 45% to 50%. Atrial fibrillation with rapid ventricular response. I n addition, evaluation identified a fracture at T10 vertebrae without spinal cord injury. That did n ot require surgical intervention, TLSO brace, and spine precautions put in place. She underwent a tr ansesophageal echocardiogram with cardioversion, left heart catheterization, and right heart catheter ization on 08/10/2023, which showed normal filling pressures. The left heart catheterization showed 80% mid to distal left main disease extending into the ostium of the left anterior descending artery. There was 60% to 70% mid LAD stenosis, diffuse left circumflex stenosis, and there is 70% to 80% pr oximal mid right coronary artery disease and again transferred to [facility] from [facility] for revascularization. On 08/06, she underwent open surgery with left main to LAD with a D ES x4, which was complicated by cardiac arrest twice. She was cannulated with the [facility]-ECMO. She was found to have acute stent thrombosis, status post a PCI procedure. 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 She has had a mitral clip done on 08/10. She was not deemed to be a candidate for advanced therapy due to extensive peripheral artery disease. The Impella and pressure support w ere weaned. Impella was decannulated on 08/15. She was transferred to IMU on 08/16. Furthermore, h ospital course was complicated by GI bleed and she had EGD on 08/12. There was an AVM and she had 5 clips and epinephrine injections with hemostatic powder spray and hemostasis was achieved. GI addres sed the issue. She had a SAGE drain removed by the Cardiac Surgery Team on 08/17/2024. She was placed on low-dose losartan. Plan was to continue amiodarone and apixaban for atrial fibrillation. She al so continued dual antiplatelet therapy with statin. She had guideline-directed medical therapy on e low-dose losartan without diuretics due to marginally low blood pressure. She did continue physica l and occupational therapy secondary to her decline and bilateral knee pain. Prior to her hospitaliz ation and worsening chest pain, she was independent with ambulating without an assistive device, driv ing and completing all activities of daily living independently. On the first, physical therapy note d she had proximal distal weakness requiring moderate assistance for bed mobilization secondary to sp inal precautions and TLSO brace being on. She had moderate assistance for vfb-wa-hlqie transfers and ambulated 250 feet with a rolling walker with contact guard assistance. She did exhibit right lower extremity fatigue with increased risk of falling. Occupational therapy on 08/10 noted that she was at supervision with standby assistance for all activities. However, the upper and lower body dressin g and showering were not attempted. She was found to be functioning well below her baseline independ ent level and was determined to be a good candidate for acute inpatient rehabilitation, where she lorri l receive physical and occupational therapy and if need be speech therapy. Furthermore, her comorbid conditions will be managed adequately. Admission to the inpatient rehabilitation unit is necessary as if she is admitted to a custodial or home, she is likely not to thrive to worsen. Admission will also reduce the risk of rehospitalization and help her return to her prior level of functioning . Past Medical History: Prediabetes, tobacco dependency, normocytic anemia, multivessel coronary arter y disease, paroxysmal nonvalvular atrial fibrillation, peripheral vascular disease, hypertension, and status post bypass, cardiac. Allergies: NO KNOWN DRUG ALLERGIES. Medications: Tylenol 650 mg every 6 hours as needed, amiodarone 100 mg daily, Eliquis that is the ap ixaban 5 mg twice daily, aspirin 81 mg daily, Lipitor 40 mg at bedtime, Dulcolax suppository 10 mg pe r rectum as needed, folate 1 mg daily, Cozaar 12.5 mg daily, magnesium oxide 400 mg twice daily, Prot lynn 40 mg daily, Glycolax 17 g daily as needed, Senokot 8.6 mg twice daily, thiamine 100 mg daily, a nd Brilinta 90 mg twice daily. X-ray/imaging: CT scan of cervical spine on 08/02 shows no cervical spine fracture or alignment. CT of lumbar spine on 08/02 shows a small age-indeterminate fracture of the tips of the left L1-L2 thomas sverse processes. There is severe facet arthropathy at L4-L5 with associated minimal atherosclerosis at this level. X-ray of the thoracic spine on 08/01 shows T10 fracture not well visualized. MRI of the thoracic spine on 08/02 shows no acute subacute T10 vertebral body fracture with associated kendra ow edema, approximately 10% to 15% vertebral height loss. No significant retropulsion. There was an adjoining endplate degenerative change versus bone contusion along the anterior adjoining endplate o f T5-6 and T7-8. There is no significant vertebral body height loss or retropulsion at these levels. No significant spinal canal narrowing, unremarkable thoracic cord, and partially imaged pleural eff usion. Laboratory Studies: White blood cell count 9.4, hemoglobin 9.9, platelets are 618. Sodium 137, pota ssium 4.5, chloride 105, carbon dioxide 27, BUN 33, creatinine 1.15, glucose ranged 141 to 191, calci um 8.7, magnesium 2.5, albumin 2.9, prealbumin 22.0. Urinalysis shows turbid clarity, 3+ glucose, 75 esterase, few budding yeast, otherwise unremarkable. Review of Systems: She does report weakness proximally in the lower and upper extremities, difficulty getting up and mob ilizing. She did attempt some ambulation, probably about 50 feet, again significantly weak in the lo wer extremities. She does have mild pain rated although up to about 5/10. Otherwise, she denies any active fevers, chills, nausea, or vomiting. No rash. No psychiatric issues. Family History: Noncontributory. Social History: No alcohol, tobacco, or IV drug use. Lives in single family home. Current Level Of Functioning: Currently, she is independent for eating, setup assistance for groomin g, moderate assistance for bathing and upper body dressing along with lower body dressing. Moderate assistance for donning and doffing footwear. Her toileting, transfers from bed, chair, wheelchair, a nd toilet transfer, all moderate assistance. She is at supervision to contact guard assist and ambul ating 250 feet. Rehab And Medical Assessment And Plan: Ms. Hampton is a 69-year-old patient, admitted to the inpatient rehabilitation unit with impairment category 06, neurological condition. Her impairment group code is 03.9, other neurologic condition. Etiologic diagnosis, critical illness myopathy. Comorbidities are prediabetes, tobacco use, normocytic anemia, multi-vessel coronary artery disease, nonvalvular at rial fibrillation for vascular disease, hypertension, decreased mobility, decreased physical function ing. Plan: She will have physical and occupational therapy 3 hours a day, 5 of 7 days. She has multiple comorbid conditions which have been indicated. She has significant risk of additional clots. She is on Brilinta, aspirin, and Eliquis. We will determine if the patient has any possible bleeding in ot her areas and may cut back on the Brilinta. She has Lipitor for dyslipidemia, amiodarone for hyperte nsion, folic acid for stroke risk reduction, Cozaar managing hypertension as well. She has magnesium oxide for muscle spasms, which she says there is some mild pain in the left calf, Protonix for GE re flux. She has Senokot for constipation. If need be, thiamine also on board for reducing risk of alc ohol or tobacco withdrawal. Comorbidities That Are Impacting Rehabilitation: She is at significant risk of bleeding as she has m ultiple anticoagulation treatment on board. She will have fall precautions adhered to very strictly. Gait belt and ambulating chair in tow and if impulsive, will have a bed alarm, chair alarm in place . Also, her blood sugars are mildly uncontrolled, but those will be addressed. She has mild dehydra tion. Encourage oral hydration. If need be, IV fluids will be given. Her GE reflux has been addres sed adequately and stroke risk, DVT risk have been addressed. Rehab Specific Plan: Ms. Hampton will have physical and occupational therapy 3 hours a day, 5 of 7 day s, to improve her ability to transfer from bed to chair, to toilet, to a wheelchair, to a walker, go in and out of the tub and toilet. Also have her improve her ability to dress upper and lower body, d on and doff footwear, manage all activities of daily living, and perform all cognitive functioning is sues safely. Ms. Hampton has a good understanding of the process of admission to the inpatient rehabilitation unit a nd how she will benefit from physical and occupational therapy. She will have 24 hours a day, 7 days a week, skilled rehabilitation and nursing, daily physician evaluation and management, and social se rvices evaluation and management for discharge planning, home equipment, and to continue with therapy . If need be, she will have additional help from the Hospitalist Service. Barriers To Discharge: At this point, she has had cardiac procedures. She does have a good ejection fraction. She is doing well from that perspective, but again high risk of bleeding, coronary artery disease is there. She may have myocardial infarction. Also aspiration pneumonia is there. She lorri l have incentive spirometry and anticoagulation will be adjusted appropriately to decrease the risk o f falling while managing the risk of clot formation. Length Of Stay: About 10 days. Disposition: Expected to be home with family and continue therapy via Home Health or if she is doing well outpatient. Prognosis: Good. Code Status: Full code. Rehab Specific Goals: 1. Become independent with upper and lower body dressing, donning and doffing footwear. 2. Independently ambulate 250 feet with a rolling walker and mobilize a wheelchair 250 feet and up an d down 10 steps with bilateral handrails. 3. Independently perform cognitive functioning. 4. Independently perform all activities of daily living. The above goals were reviewed with Ms. Hampton and she is in agreement. By signing this document, I acknowledge I personally performed a full physical examination on Ms. Mert reeves no later than 24 hours after her admission to the inpatient rehabilitation unit and determined kristal t she is able to tolerate the above course of treatment at an intensive level for a reasonable period of time. A detailed individualized plan of care for her will be completed by hospital day 4 based o n the preadmission screen, history and physical, and therapy evaluations. GERSON Voice ID: [id number]
--- NOTE | 2024-08-24 13:46 | P.RH.PN ---
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 Goal: Mobility, Transfers, Self Care Vital Signs: Last Vital Signs Temp 98.0 F 08/24/24 08:00 Pulse 72 08/24/24 08:00 Resp 18 08/24/24 08:00 BP 140/61 08/24/24 08:00 Pulse Ox 97 08/24/24 08:00 Laboratory: Laboratory Last Values WBC 9.40 thou/uL (4.3-10.9) 08/23/24 06:34 RBC 3.14 M/uL (3.86-4.86) L 08/23/24 06:34 Hgb 9.9 g/dL (12.0-15.0) L 08/23/24 06:34 Hct 29.7 % (36.0-45.0) L 08/23/24 06:34 MCV 94.3 fL (80-100) 08/23/24 06:34 MCH 31.6 pg (27.0-35.0) 08/23/24 06:34 MCHC 33.5 g/dL (32.0-36.0) 08/23/24 06:34 RDW 18.5 % (12.1-15.2) H 08/23/24 06:34 Plt Count 618 thou/uL (152-406) H 08/23/24 06:34 MPV 9.1 fL (7.6-11.3) 08/23/24 06:34 Neutrophils % 69.3 % (41.7-73.7) 08/23/24 06:34 Lymphocytes % 15.8 % (15.3-44.8) 08/23/24 06:34 Monocytes % 9.2 % (3.3-12.3) 08/23/24 06:34 Eosinophils % 4.5 % (0-4.4) H 08/23/24 06:34 Basophils % 1.2 % (0-1.3) 08/23/24 06:34 Absolute Neutrophils 6.5 K/uL (1.8-8.0) 08/23/24 06:34 Absolute Lymphocytes 1.5 K/uL (0.7-4.9) 08/23/24 06:34 Absolute Monocytes 0.9 K/uL (0.1-1.3) 08/23/24 06:34 Absolute Eosinophils 0.4 K/uL (0-0.5) 08/23/24 06:34 Absolute Basophils 0.1 K/uL (0-0.5) 08/23/24 06:34 Sodium 137 mEq/L (136-145) 08/23/24 06:34 Potassium 4.5 mEq/L (3.5-5.1) 08/23/24 06:34 Chloride 105 mEq/L (98-107) 08/23/24 06:34 Carbon Dioxide 27 mEq/L (21-32) 08/23/24 06:34 Anion Gap 9.5 mEq/L (5.0-15.0) 08/23/24 06:34 BUN 33 mg/dL (7-18) H 08/23/24 06:34 Creatinine 1.13 mg/dL (0.55-1.02) H 08/23/24 06:34 Est GFR (CKD-EPI) 52 ml/min (=/>90) L 08/23/24 06:34 Glucose 146 mg/dL (74-106) H 08/23/24 06:34 POC Glucose 217 mg/dL (65-120) H 08/24/24 11:29 Calcium 8.7 mg/dL (8.5-10.1) 08/23/24 06:34 Magnesium 2.5 mg/dL (1.6-2.4) H 08/23/24 06:34 Albumin 2.9 g/dL (3.4-5.0) L 08/23/24 06:34 Prealbumin 22.0 mg/dL (20-40) 08/23/24 06:34 Urine Color Colorless (Yellow) 08/22/24 20:58 Urine Clarity Turbid (Clear) H 08/22/24 20:58 Urine pH 6.0 (5.0-7.0) 08/22/24 20:58 Ur Specific [place] 1.009 (1.005-1.030) 08/22/24 20:58 Glucose (UA)(Auto) 3+ (Negative) H 08/22/24 20:58 Urine Ketones Negative (Negative) 08/22/24 20:58 Urine Blood Negative (Negative) 08/22/24 20:58 Urine Nitrite Negative (Negative) 08/22/24 20:58 Urine Bilirubin Negative (Negative) 08/22/24 20:58 Urine Urobilinogen Normal (Normal) 08/22/24 20:58 Ur Leukocyte Esterase 75 Marah/uL (Negative) H 08/22/24 20:58 Urine RBC <5 /HPF (None Seen) 08/22/24 20:58 Urine WBC <5 /HPF (<5) 08/22/24 20:58 Urine WBC Clumps Rare /HPF (None Seen) 08/22/24 20:58 Ur Squamous Epith Cells <5 /HPF (None Seen) 08/22/24 20:58 U Non-Squamous Epi Cells <5 /HPF (None Seen) 08/22/24 20:58 Unidentified Crystals Few /HPF (None Seen) 08/22/24 20:58 Urine Bacteria None seen /HPF (<20) 08/22/24 20:58 Urine Yeast (Budding) Few /HPF (None Seen) H 08/22/24 20:58 Urine Culture Reflexed Not needed 08/22/24 20:58 Urine Total Protein Negative (Negative) 08/22/24 20:58 Weight: 115 lb Wound Present: Yes Physician Update: Labs reviewed are stable. Mild malnutrition. Mild to moderate left calf pain and stage 1 decubital in the right groin. BIMS 13, SLUMS 17, 5th grade education. Not able to read. Poor short term memory and executive functioning. CGA for sit to stand, transfers, simulated car and toilet transfers min assist. RW 250', up and down 10 steps and WC 125'. Toileting CGA, otherwise min assist. Summary: Patient's care plan and termite control service representative goals have been reviewed and revised as necessary. Please see the Rehabilitation Signature page for all necessary signatures.
[2024-08-24] MEDS: AMINO ACIDS/PROTEIN HYDROLYS 30 ML LIQUID.PKT PO SCH (19:29)
[2024-08-25 05:20] VITALS: BMI 20.9
[2024-08-25] MEDS: LIDOCAINE 4% PATCH TOP SCH (08:43)
--- NOTE | 2024-08-27 20:17 | PN ---
Subjective: She in terms of subjective reports some fatigue and weakness in the lower extremities, b ut feels she is getting stronger and doing better. Objective: Again mild myalgias, arthralgias in lower extremities. No psychiatric complaints. No ga strointestinal issues. She did need a glucometer and a prescription actually was written for that to get glucometer, lancets, and test strips for 90 days. Physical Examination: Vital Signs: Blood pressure 113/56, pulse 61, respiratory rate 18, temperature 97.9, oxygen saturati on 98%. Weight 122 pounds, height 5 feet 4 inches, BMI 20.9. General: Ms. Hampton is sitting in a chair beside bed. HEENT: She is normocephalic, atraumatic. Sclerae anicteric. Oropharynx pink and moist. Neck: Supple. Chest: Clear. Heart: Regular. Extremities: No significant edema, cyanosis, or clubbing noted in the extremities. She has diffuse weakness more proximal than distally in the lower and upper extremities, but making good progress so far. Laboratory Studies: Her blood sugars ranged from 145 to 289. X-ray/imaging: No new x-rays or imaging done. Medications: Tylenol 650 mg every 6 hours as needed. She has aminoacid ProSource 30 mL twice daily, Cordarone 100 mg daily, Eliquis 5 mg twice daily, Lipitor 40 mg at bedtime, Dulcolax suppository 10 mg per rectum as needed for constipation, folic acid 1 mg daily, lidocaine patch apply 1 patch topica lly daily, Cozaar 12.5 mg daily, Protonix 40 mg daily, Senokot-S 8.6 mg twice daily, thiamine 100 mg daily, and Brilinta 90 mg twice daily. Progress Made With Physical, Occupational, And Speech Therapy: With physical therapy today, she did [id number] transfers with contact guard assistance, multiple [id number] transfers also done with contact guard assistance. She ambulated 250 feet and another 60 feet twice with standby assistance using a rolling walker. Mobilized a wheelchair 100 feet and 50 feet independently. With her occupat ional therapy, she was able to complete bathing and sink activities independently. Upper body dressi ng and lower body dressing, all done independently. With speech, she used spaced retrieval to addres s short-term memory deficits. She recalled 3 of 3 unrelated pictures after 3 minutes, 6 minutes, and 8 minutes without cues. Organizational thinking used during divergent naming tasks when she named 7 concrete category members with minimum assistance. Assessment: Ms. Hampton is a 69-year-old patient with critical illness myopathy, was doing very well. She is making excellent progress with speech, physical, and occupational therapy. She has comorbidi ties of mild decreased physical functioning, decreased mobility, hypertension. Some pain in the calf area that is improving and dyslipidemia. She has Eliquis for DVT prophylaxis, amiodarone for heart rate and blood pressure control, aminoacid ProSource for malnutrition. Comorbidities Impacting Rehabilitation: Her comorbidities are stably managed and do not negatively i mpact her rehabilitation. LB/MODL Voice ID: [id number] Report ID: [id number]
[2024-08-28 06:05] LABS: Absolute Basophils 0.2 K/uL (0-0.5); Absolute Eosinophils 0.5 K/uL (0-0.5); Absolute Lymphocytes (CBC) 1.6 K/uL (0.7-4.9); Absolute Monocytes 0.8 K/uL (0.1-1.3); Basophils % 2.1 % (0-1.3); Eosinophils % 6.5 % (0-4.4); Hemoglobin 9.2 g/dL (12.0-15.0); Lymphocytes % 19.5 % (15.3-44.8); MCH 31.9 pg (27.0-35.0); MCHC 33.9 g/dL (32.0-36.0); MCV 93.9 fL (80-100); MPV 9.6 fL (7.6-11.3); Monocytes % 10.3 % (3.3-12.3); Neutrophils % 61.6 % (41.7-73.7); Platelets 397 thou/uL (152-406); RBC Red Blood Cell Count 2.88 M/uL (3.86-4.86); Red Cell Distribution Width 18.7 % (12.1-15.2)
[2024-08-28 06:24] LABS: Anion Gap 8.4 mEq/L (5.0-15.0); Magnesium 2.5 mg/dL (1.6-2.4); Potassium 4.4 mEq/L (3.5-5.1); Prealbumin 23.3 mg/dL (20-40)
--- NOTE | 2024-08-28 22:43 | PN ---
Date of Progress Note: 08/28/2024 Time Of Service: 1:20 p.m. Subjective: Ms. Hampton is resting comfortably. She is able to do much better today. Denies any pain in the left calf area and despite all the hard work, she is ambulating around the unit multiple time s. She did about 1000 feet at the time of my evaluation. Objective: Mild myalgias and arthralgias. No rash. No psychiatric complaints. No genitourinary or gastrointestinal issues. Again, feeling stronger in the legs and upper extremities. Physical Examination: Vital Signs: Blood pressure is 112/56, pulse 86, respiratory rate 16, temperature 97.6, oxygen satur ation 98%. General: Ms. Hampton is sitting in the chair beside the bed. She just finished walking 1000 feet. HEENT: She appears normocephalic, atraumatic. Sclerae anicteric. Extremities: Improving strength proximally and distally in the lower extremities. Stocking glove lo ss to light touch and temperature is present. Laboratory Studies: White blood cell count 8.2, hemoglobin 9.2, platelets 397. Sodium 139, potassiu m 4.0, chloride 110, carbon dioxide 25, BUN 30, creatinine 0.84, glucose ranged from 131 to 149. Kang cium 8.9, magnesium 2.5, albumin 3.0. Prealbumin 23.3. X-ray/imaging: No new x-rays or imaging. Medications: Medications have been reviewed and remained unchanged. Progress Made With Physical, Occupational, And Speech Therapy: With physical therapy today, she did supine to sit transfers independently, multiple [id number] transfers done independently as well. S he ambulated twice 350 feet and 120 feet twice, and then 100 feet independently. She was up and down 15 steps with bilateral handrails, also did so independently. With occupational therapy, independen t with [id number] transfers. Ambulated from room to bathroom and did so independently. She is goi ng to be discharged to home and trying to go home, where she will continue wearing the TLSO brace and follow up with the spine surgeons and primary care physician. With speech, she did improve the BIMS score from 13 to 15, which is full score and improved the SLUMS score from 17 to 28, which is a norm al score. She is felt to be back to her baseline and does not necessarily require additional speech therapy, but may continue with physical and occupational therapy at discharge. Note, she currently will continue with physical, occupational, and speech therapy. She will continue for her comorbid conditions, addressing the hypertension with amiodarone. Malnutrition with amino a marco supplementation. She has thiamine on board for low vitamin B1. Brilinta for stroke risk reducti on and DVT risk reduction. Protonix for gastroesophageal reflux disease. Folic acid for stroke risk reduction. Lipitor for dyslipidemia. Eliquis 5 mg twice daily for DVT and stroke risk reduction. Again, she will be ready for discharge in the morning and follow up as noted with primary care physic paz and surgeon as well. ROBBIE/DENI Voice ID: [id number] Report ID: [id number]
[2024-08-29 07:35] VITALS: BP 113/54; TEMP 98.1
== END 2024-08-29 12:58 | disposition home health service (06) | DRG 92 ==
LOC: 5TH 20:50
PROVIDERS: ADMIT Psychiatry & Neurology Neurology with Special Qualifications in Child Neurology; ATTEND Psychiatry & Neurology Neurology with Special Qualifications in Child Neurology
DX: G72.81 Critical illness myopathy (principal); E44.1 Mild protein-calorie malnutrition; Z68.20 Body mass index [BMI] 20.0-20.9, adult; I10 Essential (primary) hypertension; R73.03 Prediabetes; I25.10 Atherosclerotic heart disease of native coronary artery without angina pectoris; E86.0 Dehydration; M79.662 Pain in left lower leg; D64.9 Anemia, unspecified; I48.0 Paroxysmal atrial fibrillation; K59.00 Constipation, unspecified; M62.838 Other muscle spasm; R68.89 Other general symptoms and signs; E78.5 Hyperlipidemia, unspecified; K21.9 Gastro-esophageal reflux disease without esophagitis; I73.9 Peripheral vascular disease, unspecified; L89.891 Pressure ulcer of other site, stage 1; F17.200 Nicotine dependence, unspecified, uncomplicated; Z95.1 Presence of aortocoronary bypass graft
CPT/HCPCS: 36415; 80048; 81001; 82040; 82947; 83735; 84134; 85025; 87086; 87088; 92523; 97110; 97116; 97129; 97163; 97165; 97530; 97542; J1815; J2003